=== PATIENT | female | born 1975 | race Caucasian/White ===

== ENCOUNTER 2016-10-24 08:29 | Observation (INO) | payer OTHER ==
[2016-10-22 16:55] VITALS: BMI 44.9
[~2016-10-24 08:29] MED LIST: HEPARIN SODIUM,PORCINE 5,000 UNIT/ML 1 ML VIAL SQ ONE
[2016-10-24] MEDS ORDERED: ONDANSETRON 4 MG/2 ML VIAL IVP ONE (09:29)
[2016-10-24] MEDS ORDERED: DEXAMETHASONE SOD PHOSPHATE 10 MG/ML 1 ML VIAL IV ONE (09:29)
[2016-10-24 10:42] LABS: Glucose,Whole Blood 141 mg/dL (75-99)
[2016-10-24] MEDS ORDERED: LIDOCAINE 1% 20 ML VIAL (10MG/ML) FOR IV START INTRADERMA ONE (10:42)
[2016-10-24] MEDS: LACTATED RINGERS 1,000 ML IV SCH (10:42)
[2016-10-24 10:44] LABS: Basophils % (A) 0 %; CH 28.4; CHCM 32.5; Eosinophils # (A) 0.5 k/uL (0-0.7); Eosinophils % (A) 5 %; HCT 45.1 % (34.0-46.0); HDW 2.99; HGB 14.5 gm/dL (11.4-16.0); Luc # (Auto) 0.17; Luc % (Auto) 2; Lymphocytes # (A) 2.4 k/uL (1.0-4.8); Lymphocytes % (A) 26 %; MCH 28.3 pg (25.0-35.0); MCHC 32.2 g/dL (31.0-37.0); MCV 87.8 fL (80.0-100.0); Mean Platelet Volume 6.9; Monocytes # (A) 0.3 k/uL (0-1.0); Monocytes % (A) 3 %; Neutrophils # (A) 5.8 k/uL (1.3-7.7); Neutrophils % (A) 63 %; RBC 5.13 m/uL (3.80-5.40); RDW 14.6 % (11.5-15.5); WBC 9.1 k/uL (3.8-10.6); WBC (Perox) 9.03
--- NOTE | 2016-10-24 10:50 | P.GSHP ---
History of Present Illness H&P Date: 10/24/16 Chief Complaint: GERD This a 41-year-old female referred from Dr. gross. The patient has had long-standing problems with reflux esophagitis. The patient underwent recent EGD is found have evidence of esophagitis. Patient has been well informed on the procedure of laparoscopic Cristy fundoplication. The patient is aware the risk of the conversion to the open procedure, risk of injury to the stomach, liver and spleen. The patient is also a risk of recurrent GERD and dysphagia symptoms. The patient understands there is a postoperative diet of full liquids for 2 weeks after surgery. - Constitutional Constitutional: Reports as per HPI Past Medical History Past Medical History: Asthma, Heart Failure, COPD, Diabetes Mellitus, GERD/ Reflux, Hypertension, Renal Disease, Seizure Disorder, Sleep Apnea/CPAP/BIPAP Additional Past Medical History / Comment(s): nephrolithiasis, HX pneumonia / vented-2011, peptic ulcers, MEHNAZ-no device, bilateral occipital neuritis, headaches, seizure with last one 1-2-17-sees Shuayto, vertigo, neuropathy;"legs give out at times". had episode of CHF >10 yrs. ago-has had no problems since, hiatal hernia History of Any Multi-Drug Resistant Organisms: None Reported Past Surgical History: Cholecystectomy Additional Past Surgical History / Comment(s): brain surgery 2012 for seizures & headaches, R ovarytube removed, D&C, tilt table test, Picc line insertion since removed, Kidney stone surgically removed & lithotripsy. Past Anesthesia/Blood Transfusion Reactions: No Reported Reaction Past Psychological History: No Psychological Hx Reported Additional Psychological History / Comment(s): Pt resides with her significant other. She states she has not had insurance so has not gone to the physician for about 1 year[address] She does not drive-no license due to medical issues. Smoking Status: Current every day smoker Past Alcohol Use History: Rare Additional Past Alcohol Use History / Comment(s): Pt states she started smoking at the age of 15 yrs. She is down to 4 cigs/day Past Drug Use History: Marijuana Additional Drug Use History / Comment(s): smokes 3 joints per day. - Past Family History Father Family Medical History: AFIB, Diabetes Mellitus, Hypertension Additional Family Medical History / Comment(s): Father has a pacer. Mother Family Medical History: Cancer Additional Family Medical History / Comment(s): Mother of pancreatic cancer at the age of 58yrs. Medications and Allergies Home Medications Medication Instructions Recorded Confirmed Type Gabapentin [Neurontin] 400 mg PO TID 10/02/16 10/24/16 History Phenyleph/Pramoxin/Glycr/W.pet 1 applic RECTAL DIRECTED PRN 10/02/16 History [Preparation H Cream] metFORMIN HCL 1,000 mg PO BID 10/02/16 10/24/16 History Acetaminophen/Caffeine [Excedrin 1 each PO Q6H PRN 10/22/16 10/24/16 History Tension Headache Cplt] Lisinopril 40 mg PO DAILY 10/22/16 10/24/16 History Ranitidine HCl [Zantac] 150 mg PO BID 10/22/16 10/24/16 History Allergies Allergy/AdvReac Type Severity Reaction Status Date / Time hydromorphone HCl Allergy headache Verified 10/24/16 09:52 [From Dilaudid] fexofenadine [From Deirdre] AdvReac Rash/Hives Verified 10/24/16 09:52 BERRIES Allergy Anaphylaxis Uncoded 10/24/16 09:52 Surgical - Exam Vital Signs Temp Pulse Resp BP Pulse Ox 98.1 F 84 18 119/66 97 10/24/16 09:58 10/24/16 09:58 10/24/16 09:58 10/24/16 09:58 10/24/16 09:58 - General well developed, no distress - Eyes PERRL - Neck no masses - Respiratory normal expansion - Cardiovascular Rhythm: regular - Abdomen Abdomen: soft, non tender Results - Labs Abnormal Lab Results - Last 24 Hours (Table) 10/24/16 Range/Units 10:24 POC Glucose (mg/dL) 141 H (75-99) mg/dL Assessment and Plan Plan: GERD. We will perform laparoscopic Cristy fundal plication.
[2016-10-24] MEDS ORDERED: LIDOCAINE 1% INJ 10MG/ML (20 ML MDV) ONE (11:16)
[2016-10-24] MEDS ORDERED: fentaNYL (PF) 50 MCG/ML 2 ML AMP ONE (11:16)
[2016-10-24] MEDS ORDERED: PHENYLEPHRINE-0.9% NACL SYG 1 MG/10 ML SYRINGE ONE (11:16)
[2016-10-24] MEDS ORDERED: ceFAZolin 1,000 MG VIAL ONE (11:16)
[2016-10-24] MEDS ORDERED: NEOSTIGMINE 1 MG/ML 10 ML VIAL ONE (11:16)
[2016-10-24] MEDS ORDERED: GLYCOPYRROLATE 0.2 MG/ML 2 ML VIAL ONE (11:16)
[2016-10-24] MEDS: ceFAZolin 2 GM in SODIUM CHLORIDE 0.9% 100 ML IVPB ONE ×2 (11:16→19:45)
[2016-10-24] MEDS ORDERED: PROPOFOL 10 MG/ML 20 ML VIAL IV ONE (11:16)
[2016-10-24] MEDS ORDERED: MIDAZOLAM 2 MG/2 ML VIAL ONE (11:16)
[2016-10-24] MEDS ORDERED: ALBUTEROL INHALER 60 PUFF/8 GM INHALER INHALATION ONE (11:16)
[2016-10-24] MEDS ORDERED: SUCCINYLCHOLINE CHLORIDE 100 MG/5 ML SYR IV ONE (11:16)
[2016-10-24] MEDS ORDERED: LABETALOL 5 MG/ML VIAL MDV ONE (11:16)
[2016-10-24] MEDS ORDERED: WATER FOR INJECTION, STERILE 10 ML VIAL IV ONE (11:16)
[2016-10-24] MEDS ORDERED: SODIUM CHLORIDE 0.9% 100 ML BAG ONE (11:16)
[2016-10-24] MEDS ORDERED: VECURONIUM 10 MG VIAL IV ONE (11:16)
[2016-10-24] MEDS ORDERED: BUPIVACAIN-EPI 0.25%-1:200,000 30 ML VIAL SQ ONE ×2 (11:56)
[2016-10-24] MEDS ORDERED: ONDANSETRON 4 MG/2 ML VIAL IVP PRN (12:40)
[2016-10-24] MEDS ORDERED: NALOXONE 0.4 MG/ML 1 ML VIAL IV PRN (12:40)
[2016-10-24] MEDS ORDERED: LACTATED RINGERS 1,000 ML IV ONE ×2 (12:40→13:30)
--- NOTE | 2016-10-24 12:40 | P.OP ---
Date of Procedure: 10/24/16 Preoperative Diagnosis: GERD Postoperative Diagnosis: GERD Enlarged fatty liver Procedure(s) Performed: Laparoscopic Cristy fundoplication Anesthesia: DOMINGA Surgeon: Berny Barclay Estimated Blood Loss (ml): 5 Pathology: none sent Condition: stable Disposition: PACU Description of Procedure: The was placed on the operating table in the supine position. The patient received general anesthesia. And was placed in dorsal lithotomy position. The patient was prepped and draped in the usual sterile fashion. The skin incision sites were anesthetized with 1% local Xylocaine. The skin was incised in the left periumbilical area and then using a blade less 5 mm trocar under direct visualization panel cavity was entered. After adequate insufflation the laparoscope was then placed into the peritoneal cavity. Next a 5 mm trochars placed in the right epigastric position. Another 5 millimeter trocar the right lateral position. Another 5 millimeter trocar in the left lateral position a 5 mm trocar is placed in the left epigastric position. And then the initial 5 mm trocar was exchanged for a 10 mm trocar. The left lateral lobe liver was retracted. The hernia was seen. The crural defect was then dissected using the Harmonic scissors device. The patient's liver was massive. The liver retractor trocar was repositioned. A 360 crural dissection was performed the esophagus stomach was reduced back into the peritoneal Cavity. The crural defect was then closed using 2-0 Ethibond suture. Next the fundus of the stomach was mobilized using the [place] scissors device. and then a 58-Greek bougie dilator was placed oropharynx passed into the esophagus and stomach the fundal plication wrap was then performed by grasping the fundus posteriorly and bringing it around the esophagus and stomach fundoplication 180 was then performed using 2-0 Ethibond suture. Care was taken that the fundal location rested over top of the intra-abdominal esophagus. There was no injury seen to the stomach or esophagus. The dilator was then withdrawn. The abdomen was irrigated there is no bleeding seen. The trochars were then withdrawn and then skin incision sites were closed using 3-0 Monocryl suture Steri-Strips are applied. Patient thought procedure well and sent to recovery room in stable condition.
[2016-10-24] MEDS ORDERED: MORPHINE SULFATE 10 MG/ML SYRINGE IVP PRN (12:44)
[2016-10-24] MEDS ORDERED: MIDAZOLAM 2 MG/2 ML VIAL IVP ONE (13:30)
[2016-10-24] MEDS: MEPERIDINE 50 MG/ML SYRINGE IVP ONE ×2 (13:30→13:35)
[2016-10-24] MEDS: KETOROLAC 30 MG/ML 1 ML VIAL IVP SCH ×2 (14:00→19:53)
[2016-10-25] MEDS: LACTATED RINGERS 1,000 ML IV SCH (00:20)
[2016-10-25] MEDS: HYDROcodone/APAP 5-325MG 1 EACH TAB PO PRN ×2 (01:33→09:18)
[2016-10-25] MEDS: KETOROLAC 30 MG/ML 1 ML VIAL IVP SCH ×3 (01:38→13:31)
--- NOTE | 2016-10-25 08:47 | FL ---
EXAMINATION TYPE: FL UGI w esophagus DATE OF EXAM: 10/25/2016 8:41 AM LIMITED ESOPHAGRAM: CLINICAL HISTORY: Hiatal hernia and epigastric pain with vomiting or reflux-like symptoms status pos t Lucian fundoplication surgery yesterday TECHNIQUE: Limited esophagram is performed utilizing 50 oz of Omnipaque 350. A total of 0.57 minutes of fluoroscopic time was utilized during procedure. FINDINGS: The patient swallowed contrast without difficulty or delay. Esophageal peristalsis and mo tility are within normal limits. There is good flow of flow of contrast along the diaphragmatic hiatu s into the stomach, there is no evidence of contrast extravasation to suggest leak. No persistent hia prudence hernia is seen. Patient remains asymptomatic. Cholecystectomy clips are noted. IMPRESSION: No evidence of leak or significant obstruction status post Lucian fundoplication surgery yesterday.
[2016-10-25] MEDS ORDERED: METOCLOPRAMIDE 5 MG/ML 2 ML VIAL IVP STA (12:26)
[2016-10-25 13:02] VITALS: BP 112/82; PULSE 75; RESP 16; TEMP 97.4
--- NOTE | 2016-10-25 13:55 | P.DS ---
Providers Date of admission: 10/25/16 01:34 Expected date of discharge: 10/25/16 Attending physician: Berny Barclay Consults: 10/24/16 12:40 Consult Physician Routine Consulting Provider: Brennan Jeong Reason/Comments: Medical management Do you want consulting provider notified?: Yes Primary care physician: [facility] Course: Patient is a 41-year-old female, referred from Dr. Harvey, who underwent laparoscopic Cristy fundoplication for long-standing problems with reflux esophagitis. Patient tolerated the procedure well. Upper GI/barium swallow x-ray post procedure with no evidence of leak or aspiration. Patient had an uneventful postoperative course and was felt stable for discharge to home. Patient will follow-up with Dr. Estevez in 2 weeks as an outpatient and Dr. Harvey in one week as an outpatient. Discharge diagnoses: 1. GERD status post laparoscopic Cristy fundoplication. 2. Enlarged fatty liver. The above impression and plan have been discussed and directed by Dr. Barclay. Lisa SANCHEZ acting as scribe for Dr. Barclay. Pertinent Studies: Upper GI/barium swallow x-ray Procedures: Laparoscopic Cristy fundoplication Patient Condition at Discharge: Good Plan - Discharge Summary New Discharge Prescriptions: HYDROcodone/APAP 5-325MG [[place] 5-325] 1 tab PO Q4HR PRN #20 tab PRN Reason: Pain Discharge Medication List Gabapentin [Neurontin] 400 mg PO TID 10/02/16 [History] Phenyleph/Pramoxin/Glycr/W.pet [Preparation H Cream] 1 applic RECTAL DIRECTED PRN 10/02/16 [History] metFORMIN HCL 1,000 mg PO BID 10/02/16 [History] Acetaminophen/Caffeine [Excedrin Tension Headache Cplt] 1 each PO Q6H PRN [History] Lisinopril 40 mg PO DAILY 10/22/16 [History] HYDROcodone/APAP 5-325MG [[place] 5-325] 1 tab PO Q4HR PRN #20 tab 10/24/16 [Rx] Follow up Appointment(s)/Referral(s): James Harvey DO [Primary Care Provider] - 1 Week Berny Barclay MD [STAFF PHYSICIAN] - 2 Weeks Patient Instructions/Handouts: *Surgery [facility] - ([facility]) Lap Cristy Fundiplication Post-Op Instructions Activity/Diet/Wound Care/Special Instructions: No heavy lifting, pushing, or pulling items greater than 10 pounds. Full liquid diet for 2 weeks. No caffeinated beverages or straws. Shower daily, no soaking in bath tubs, pools, or hot tubs. No driving while taking pain medication. Notify surgeon with any signs or symptoms of infection, increased pain, or not tolerating diet. Discharge Disposition: HOME SELF-CARE
--- NOTE | 2016-10-25 15:26 | P.CONS ---
History of Present Illness - Reason for Consult Consult date: 10/25/16 Medical management - History of Present Illness This is a 41-year-old female. Her primary care physician is Dr. Martínez. She has a past medical history for COPD, diabetes mellitus type 2, diabetic neuropathy, hypertension, obstructive sleep apnea without device, kidney stones, occipital neuritis and chronic headaches as well as seizures. Patient has had ongoing problems with gastroesophageal reflux disease and has been admitted under the care of Dr. Archibald is status post recent fundoplication. Patient is complaining of left upper abdominal discomfort. She underwent upper GI that was negative. Patient is anticipated to be discharged home today. She states she is burping but has not passed any flatus. She is tolerating clear liquid diet without any nausea or vomiting. Review of Systems All systems: negative Constitutional: Denies chills, Denies fever Eyes: denies blurred vision, denies pain Ears, nose, mouth and throat: Denies headache, Denies sore throat Cardiovascular: Denies chest pain, Denies shortness of breath Respiratory: Denies cough Gastrointestinal: Reports abdominal pain, Denies diarrhea, Denies nausea, Denies vomiting Genitourinary: Denies dysuria, Denies hematuria Musculoskeletal: Denies myalgias Integumentary: Denies pruritus, Denies rash Neurological: Denies numbness, Denies weakness Psychiatric: Denies anxiety, Denies depression Endocrine: Denies fatigue, Denies weight change Past Medical History Past Medical History: Asthma, Heart Failure, COPD, Diabetes Mellitus, GERD/ Reflux, Hypertension, Renal Disease, Seizure Disorder, Sleep Apnea/CPAP/BIPAP Additional Past Medical History / Comment(s): nephrolithiasis, HX pneumonia / vented-2011, peptic ulcers, MEHNAZ-no device, bilateral occipital neuritis, headaches, seizure with last one 1-2-17-sees Shuayto, vertigo, neuropathy;"legs give out at times". had episode of CHF >10 yrs. ago-has had no problems since, hiatal hernia History of Any Multi-Drug Resistant Organisms: None Reported Past Surgical History: Cholecystectomy Additional Past Surgical History / Comment(s): brain surgery 2013 for seizures & headaches, R ovarytube removed, D&C, tilt table test, Picc line insertion since removed, Kidney stone surgically removed & lithotripsy. Past Anesthesia/Blood Transfusion Reactions: No Reported Reaction Past Psychological History: No Psychological Hx Reported Additional Psychological History / Comment(s): Pt resides with her significant other. She states she has not had insurance so has not gone to the physician for about 1 year[address] She does not drive-no license due to medical issues. Smoking Status: Current every day smoker Past Alcohol Use History: Rare Additional Past Alcohol Use History / Comment(s): Pt states she started smoking at the age of 15 yrs. she has been smoking 1 pack per day and recently cut down to 4 cigs/day Past Drug Use History: Marijuana Additional Drug Use History / Comment(s): smokes 3 joints per day to help relax and decrease pain from headache , rt shoulder pain - Past Family History Father Family Medical History: AFIB, Diabetes Mellitus, Hypertension Additional Family Medical History / Comment(s): Father has a pacer. Mother Family Medical History: Cancer Additional Family Medical History / Comment(s): Mother of pancreatic cancer at the age of 58yrs. Medications and Allergies Home Medications Medication Instructions Recorded Confirmed Type Gabapentin [Neurontin] 400 mg PO TID 10/02/16 10/24/16 History Phenyleph/Pramoxin/Glycr/W.pet 1 applic TOPICAL QID PRN 10/02/16 10/25/16 History [Preparation H Cream] metFORMIN HCL 1,000 mg PO BID 10/02/16 10/24/16 History Acetaminophen/Caffeine [Excedrin 1 tab PO Q6H PRN 10/22/16 10/25/16 History Tension Headache Cplt] Lisinopril 40 mg PO DAILY 10/22/16 10/24/16 History Allergies Allergy/AdvReac Type Severity Reaction Status Date / Time hydromorphone HCl Allergy headache Verified 10/24/16 17:11 [From Dilaudid] fexofenadine [From Deirdre] AdvReac Rash/Hives Verified 10/24/16 17:11 BERRIES Allergy Anaphylaxis Uncoded 10/24/16 17:11 Physical Exam Vitals: Vital Signs Temp Pulse Pulse Pulse Pulse Resp BP 10/25/16 13:01 97.4 F L 75 16 112/82 10/25/16 08:55 97.5 F L 79 20 125/87 10/24/16 23:00 97.4 F L 79 18 122/78 10/24/16 18:50 97 20 124/74 10/24/16 17:50 88 16 111/81 10/24/16 16:50 82 16 115/79 10/24/16 16:20 77 16 114/76 10/24/16 15:50 82 16 113/73 10/24/16 15:35 67 100/53 10/24/16 15:20 79 101/66 10/24/16 15:05 98.5 F 70 16 115/68 10/24/16 14:15 77 18 91/54 10/24/16 14:00 68 18 93/46 10/24/16 13:45 78 18 123/56 10/24/16 13:30 88 24 115/55 10/24/16 13:15 98 F 102 H 24 115/53 Pulse Ox 10/25/16 13:01 95 10/25/16 08:55 98 10/24/16 23:00 96 10/24/16 18:50 98 10/24/16 17:50 98 10/24/16 16:50 98 10/24/16 16:20 99 10/24/16 15:50 98 10/24/16 15:35 96 10/24/16 15:20 97 10/24/16 15:05 92 L 10/24/16 14:15 98 10/24/16 14:00 98 10/24/16 13:45 99 10/24/16 13:30 96 10/24/16 13:15 96 Intake and Output 10/24/16 10/25/16 10/25/16 22:59 06:59 14:59 Intake Total 400 120 Output Total 400 Balance 0 120 Intake: Oral 400 120 Output: Urine 400 Other: Voiding Method Toilet # Voids 1 1 Weight 111.584 kg Patient Weight 10/26/16 06:59 Weight 111.584 kg Gen: This is a morbidly obese female. She is sitting up in bed and appears to be in no acute distress. HEENT: Head is atraumatic, normocephalic. Pupils equal, round. Sclerae is anicteric. NECK: Supple. No JVD. No lymphadenopathy. No thyromegaly. LUNGS: Clear to auscultation. No wheezes or rhonchi. No intercostal retractions. HEART: Regular rate and rhythm. No murmur. ABDOMEN: Soft. Bowel sounds are present. No masses. Mild left upper quadrant tenderness. EXTREMITIES: No pedal edema. No calf tenderness. NEUROLOGICAL: Patient is awake, alert and oriented x3. Cranial nerves 2 through 12 are grossly intact. Results CBC & Chem 7: 10/24/16 10:35 Assessment and Plan Plan: 1. Gastroesophageal reflux disease status post Cristy fundoplication. Upper GI is normal. Patient is tolerating clear liquid diet. Plan increase activity and patient is to be discharged home later today. 2. Diabetes mellitus type 2. Patient states that she has not been taking her metformin for 3 weeks due to diarrhea and does not think she is truly a diabetic. 3. Diabetic neuropathy. Continue Neurontin. 4. Hypertension. Continue lisinopril. 5. Chronic headaches and seizure disorder under the care of jeff Smith. Impression and plan of care have been directed as dictated by the signing physician. Radha Garvey nurse practitioner acting as scribe for signing physician. Time with Patient: Greater than 30
== END 2016-10-25 16:07 | disposition home or self-care (01) ==
LOC: OR 08:29 → 6PED 12:59 → OR 10-25 13:17
PROVIDERS: ADMIT Surgery; ATTEND Surgery
DX: K21.0 Gastro-esophageal reflux disease with esophagitis (principal); K76.0 Fatty (change of) liver, not elsewhere classified; E11.40 Type 2 diabetes mellitus with diabetic neuropathy, unspecified; F17.210 Nicotine dependence, cigarettes, uncomplicated; G40.909 Epilepsy, unspecified, not intractable, without status epilepticus; I10 Essential (primary) hypertension; I50.9 Heart failure, unspecified; J44.9 Chronic obstructive pulmonary disease, unspecified; J45.909 Unspecified asthma, uncomplicated; Z80.0 Family history of malignant neoplasm of digestive organs; Z82.49 Family history of ischemic heart disease and other diseases of the circulatory system; Z83.3 Family history of diabetes mellitus; Z87.01 Personal history of pneumonia (recurrent); Z87.11 Personal history of peptic ulcer disease; Z87.442 Personal history of urinary calculi; Z88.5 Allergy status to narcotic agent; Z88.8 Allergy status to other drugs, medicaments and biological substances; Z79.84 Long term (current) use of oral hypoglycemic drugs; Z79.899 Other long term (current) drug therapy; G44.229 Chronic tension-type headache, not intractable
CPT/HCPCS: 43280; 81025; 85025; 74240; G0378; J2250; J1644; J1100; J2710; J2765; Q9967; J2175; J2405 ×2; J0690; J2001; J3010; J1885 ×2; J2370; J0330; J2704; 96374; 96375; 96376

== ENCOUNTER → 2016-12-30 | Outpatient (CLI) | payer OTHER ==
--- NOTE | 2016-12-30 09:35 | MR ---
EXAMINATION TYPE: MR brain wo con DATE OF EXAM: 12/30/2016 9:01 AM COMPARISON: 11/27/2010 HISTORY: Headaches CONTRAST: None TECHNIQUE: Multiplanar, multiecho imaging on a 3.0 [place] magnet is performed through the brain. Stud y is performed within 24 hours of arrival to the hospital. The craniovertebral junction is normal. The pituitary is normal. Diffusion-weighted imaging is performed. No abnormal hyperintensity is present to suggest an acute i ntracranial infarct or acute ischemic change. Signal within the brain appears normal. Ventricles and sulci are appropriate for the patient age. IMPRESSIONS: 1. Normal MRI brain, stable from 2010.
--- NOTE | 2016-12-30 09:35 | MR ---
EXAMINATION TYPE: MR angio head wo con DATE OF EXAM: 12/30/2016 9:01 AM COMPARISON: NONE HISTORY: Headaches TECHNIQUE: Time of flight images focusing on the [place] were performed without contrast. FINDINGS: Vertebral arteries are codominant. The basilar artery is normal. Posterior cerebral vascula ture appears unremarkable. Middle cerebral artery branches appear normal. A1 and M1 segments are normal. There are patent bilate ral posterior communicating arteries. The ophthalmic arteries appear unremarkable. The anterior commu nicating artery is not identified. No obstruction or aneurysm is identified. IMPRESSION: Normal MRA [place]
== END | disposition home or self-care (01) ==
LOC: RADMRIMAIN 08:15
PROVIDERS: ATTEND Nurse Practitioner Acute Care
DX: R51 Headache (principal)
CPT/HCPCS: 70544; 70551

== ENCOUNTER → 2017-06-17 | Outpatient (CLI) | payer OTHER ==
--- NOTE | 2017-06-17 12:25 | US ---
EXAMINATION TYPE: US pelvic complete DATE OF EXAM: 06/17/2017 COMPARISON: Previous study dated 07/02/2011. CLINICAL HISTORY: R10.2 Female Pelvic Pain, N94.6 Dysmenorrhea, R10.. TECHNIQUE: Transabdominal (TA) Date of LMP: 05/29/17 EXAM MEASUREMENTS: Uterus: 10.9 x 4.6 x 5.1 cm Endometrial Stripe: 0.5 cm Right Ovary: 3.3 x 1.6 x 2.1 cm Left Ovary: 3.3 x 2.3 x 1.9 cm Patient of large body habitus. 1. Uterus: Anteverted wnl 2. Endometrium: wnl 3. Right Ovary: wnl 4. Left Ovary: wnl 5. Bilateral Adnexa: wnl 6. Posterior cul-de-sac: wnl IMPRESSION: NORMAL PELVIC ULTRASOUND.
== END | disposition home or self-care (01) ==
LOC: RADUSWWP 09:40
PROVIDERS: ATTEND Family Medicine
DX: R10.2 Pelvic and perineal pain (principal); R31.9 Hematuria, unspecified; N94.6 Dysmenorrhea, unspecified; Z88.5 Allergy status to narcotic agent
CPT/HCPCS: 76856

== ENCOUNTER → 2018-04-24 | Day surgery (SDC) | payer OTHER ==
[2018-04-21 14:41] VITALS: BMI 39.9
[~2018-04-24] MED LIST changes: -HEPARIN SODIUM,PORCINE 5,000 UNIT/ML 1 ML VIAL SQ ONE; +LACTATED RINGERS 1,000 ML IV SCH; +LIDOCAINE 1% 20 ML VIAL (10MG/ML) FOR IV START INTRADERMA PRN; +PROPOFOL 10 MG/ML 20 ML VIAL IV ONE; +fentaNYL (PF) 50 MCG/ML 2 ML AMP ONE
[2018-04-24 07:03] VITALS: RESP 16; TEMP 98.2
--- NOTE | 2018-04-24 07:52 | P.GSHP ---
History of Present Illness H&P Date: 04/24/18 Chief Complaint: Diverticulitis This is a 42-year-old female who presents today for colonoscopy. She's had issues with diverticulitis the past. Past Medical History Past Medical History: Asthma, Heart Failure, Diabetes Mellitus, GERD/Reflux, Hypertension, Renal Disease, Seizure Disorder, Sleep Apnea/CPAP/BIPAP Additional Past Medical History / Comment(s): nephrolithiasis, HX pneumonia / vented-2011, peptic ulcers, MEHNAZ-no device, bilateral occipital neuritis, headaches, states "mild convulsions daily., vertigo, neuropathy;"legs give out at times". had episode of CHF >10 yrs. ago-has had no problems since, hiatal hernia surgery (10/2016). DENIES COPD, DENIES KIDNEY DISEASE AT THIS TIME., states hospitalized with diverticulitis 3 weeks ago at [facility]. History of Any Multi-Drug Resistant Organisms: None Reported Past Surgical History: Cholecystectomy Additional Past Surgical History / Comment(s): brain surgery 2012 for seizures & headaches, Left ovary/tube removed, D&C, tilt table test, Picc line insertion since removed, Kidney stone surgically removed & lithotripsy., Laproscopic Cristy Fundoplasty. Past Anesthesia/Blood Transfusion Reactions: No Reported Reaction, Motion Sickness Past Psychological History: Anxiety, Depression Additional Psychological History / Comment(s): . Smoking Status: Heavy tobacco smoker Past Alcohol Use History: None Reported Additional Past Alcohol Use History / Comment(s): SMOKES 2 PPD., SMOKING SINCE 15 YRS OLD. Past Drug Use History: Marijuana Additional Drug Use History / Comment(s): MARIJUANA DAILY. - Past Family History Father Family Medical History: AFIB, Diabetes Mellitus, Hypertension Additional Family Medical History / Comment(s): Father has a pacer. Mother Family Medical History: Cancer Additional Family Medical History / Comment(s): Mother of pancreatic cancer at the age of 58yrs. Medications and Allergies Home Medications Medication Instructions Recorded Confirmed Type Gabapentin [Neurontin] 400 mg PO TID 10/02/16 04/24/18 History Lisinopril 40 mg PO DAILY 10/22/16 04/24/18 History Qrysxrm-Lvsy-Jrhr [id number] 2 each PO Q6HR PRN 04/21/18 04/24/18 History [Excedrin] Cholestyramine (with Sugar) 1 dose PO DAILY 04/21/18 04/24/18 History [Cholestyramine Powder] Verapamil HCl [Verapamil ER] 120 mg PO BID 04/21/18 04/24/18 History Allergies Allergy/AdvReac Type Severity Reaction Status Date / Time pregabalin [From Lyrica] Allergy Unknown Unknown Verified 04/21/18 13:42 hydromorphone HCl Allergy headache Verified 04/21/18 13:42 [From Dilaudid] BERRIES Allergy Anaphylaxis Uncoded 04/21/18 13:42 Surgical - Exam Vital Signs Temp Pulse Resp BP Pulse Ox 98.2 F 93 16 153/101 96 04/24/18 06:58 04/24/18 06:58 04/24/18 06:58 04/24/18 06:58 04/24/18 06:58 - General well developed, well nourished, no distress - Eyes PERRL - ENT normal pinna - Neck no masses - Respiratory normal expansion - Cardiovascular Rhythm: regular - Abdomen Abdomen: soft, non tender Assessment and Plan Assessment: History of diverticulitis. We'll perform colonoscopy.
[2018-04-24 08:16] VITALS: BP 144/82; PULSE 82
--- NOTE | 2018-04-24 08:18 | P.OP ---
Date of Procedure: 04/24/18 Preoperative Diagnosis: Diverticulitis Postoperative Diagnosis: Diverticulosis Sigmoid colon inflammation pathology pending Procedure(s) Performed: Colonoscopy Anesthesia: MAC Surgeon: Berny Barclay Pathology: other (Sigmoid colon biopsy) Condition: stable Disposition: PACU Description of Procedure: The patient's placed on the endoscopy table in the lateral position. She received IV sedation. Digital rectal exam was performed which revealed no abnormalities. The flexible scope was then placed patient anus passed throughout the entire colon. The ileocecal valve was visualized. The cecum, ascending and transverse colon appeared normal. In the descending; was moderate diverticular changes. In the sigmoid colon there is an area of inflammation seen. This was biopsied. Scope was then brought back the rectum and this appeared normal. Scope was withdrawn for patient.
== END | disposition home or self-care (01) ==
LOC: ORWHC2ENDO 06:31
PROVIDERS: ATTEND Surgery
DX: D12.5 Benign neoplasm of sigmoid colon (principal); K57.30 Diverticulosis of large intestine without perforation or abscess without bleeding; J45.909 Unspecified asthma, uncomplicated; I11.0 Hypertensive heart disease with heart failure; I50.9 Heart failure, unspecified; E11.9 Type 2 diabetes mellitus without complications; K21.9 Gastro-esophageal reflux disease without esophagitis; G40.909 Epilepsy, unspecified, not intractable, without status epilepticus; G47.33 Obstructive sleep apnea (adult) (pediatric); F41.9 Anxiety disorder, unspecified; F32.9 Major depressive disorder, single episode, unspecified; F17.210 Nicotine dependence, cigarettes, uncomplicated; Z79.899 Other long term (current) drug therapy; Z88.5 Allergy status to narcotic agent; Z88.8 Allergy status to other drugs, medicaments and biological substances; Z91.018 Allergy to other foods; Z87.442 Personal history of urinary calculi
CPT/HCPCS: 81025; 88305; 45380; J3010; J2704

== ENCOUNTER → 2018-06-05 | Outpatient (CLI) | payer OTHER ==
--- NOTE | 2018-06-05 12:21 | CT ---
EXAMINATION TYPE: CT abdomen pelvis w con DATE OF EXAM: 06/05/2018 COMPARISON: 04/27/2013 HISTORY: Diverticuitis CT DLP: 1696.00 mGycm Automated exposure control for dose reduction was used. CONTRAST: CT scan of the abdomen pelvis is performed with IV Contrast, patient injected with 100 ml mL of Isovu e 300. FINDINGS- LUNG BASES-subpleural nodularity is seen within the right upper lobe as well as additional intraparen chymal nodule which measure less than 5 mm. Finding is retrospectively stable from 2013 and therefore benign. . LIVER/GB-post cystectomy changes noted. PANCREAS- No gross abnormality is seen. SPLEEN- No gross abnormality is seen. ADRENALS- No gross abnormality is seen. KIDNEYS/BLADDER-3 mm left renal calculus with minimal evidence of hydronephrosis. Left kidney is some what diminutive relative to the right. BOWEL-gas pattern is nonspecific there are changes of diverticulosis. No CT evidence of diverticuliti s. Assessment for mass or mucosal lesion limited by incomplete distention. This would require direct visualization as clinically warranted. LYMPH NODES- No greater than 1cm abdominal or pelvic lymph nodes areappreciated. OSSEOUS STRUCTURES-hypertrophic changes of the spine noted. OTHER- aorta of normal caliber with athe rosclerotic changes. IMPRESSION- 1. Diverticulosis with no CT evidence of diverticulitis. 2. There is a 3 mm left renal calculus with minimal hydronephrosis. This is markedly reduced relative to the prior exam of 2012. Atrophic changes of the left kidney noted.
== END | disposition home or self-care (01) ==
LOC: RADCTMAIN 09:45
PROVIDERS: ATTEND Surgery
DX: K57.30 Diverticulosis of large intestine without perforation or abscess without bleeding (principal); N20.0 Calculus of kidney; N26.1 Atrophy of kidney (terminal)
CPT/HCPCS: 74177; Q9967

== ENCOUNTER → 2018-12-15 | Outpatient (CLI) | payer OTHER ==
[2018-12-15 09:01] VITALS: BP 171/98; PULSE 103; RESP 20; TEMP 97.9; BMI 45.5
--- NOTE | 2018-12-15 10:08 | P.HPOB ---
History of Present Illness H&P Date: 12/15/18 Chief Complaint: The patient is here for her routine gynecologic exam. This is a 43-year-old with an LMP of 12/10/2018. The patient is here to establish with this office. It has been about 10 years since her last pelvic exam. Her last mammogram was about 5 years ago. She has used withdrawl for control for many years. She states her menstrual periods were regular every month until about 4 months ago. They now are about every 18 days. They are heavier and more painful than in the past. She states she has to change her protection up to every one to 2 hours on the heavy days. Her menstrual periods lasting about 4 days each. Review of Systems The patient states she lost about 77 pounds over 2 years with exercise, then during this winter has gained about 35 pounds back since she has been unable to ride her bike outside. She denies respiratory, cardiac, or G.I. problems. Past Medical History Past Medical History: Asthma, Heart Failure, GERD/Reflux, Hypertension, Renal Disease (Renal stones), Seizure Disorder, Sleep Apnea/CPAP/BIPAP Additional Past Medical History / Comment(s): nephrolithiasis, HX pneumonia / vented-2011, peptic ulcers, Sleep apnea-no device, bilateral occipital neuritis , headaches, vertigo, neuropathy;"legs give out at times". had episode of CHF > 10 yrs. ago-has had no problems since. 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 History of Any Multi-Drug Resistant Organisms: None Reported Past Surgical History: Cholecystectomy, Hernia Repair (Hiatal hernia) Additional Past Surgical History / Comment(s): brain surgery 2013 for seizures & headaches, Right ovary/tube removed 2009, D&C, Picc line insertion since removed, Kidney stone surgically removed & lithotripsy., Laproscopic Cristy Fundoplasty. Colonoscopy 2018(2nd). Past Anesthesia/Blood Transfusion Reactions: No Reported Reaction, Motion Sickness Past Psychological History: Anxiety, Depression Additional Psychological History / Comment(s): . Smoking Status: Heavy tobacco smoker (1 pack per day) Past Alcohol Use History: None Reported Additional Past Alcohol Use History / Comment(s): SMOKES 1 PPD., SMOKING SINCE 15 YRS OLD. Past Drug Use History: Marijuana Additional Drug Use History / Comment(s): MARIJUANA DAILY. Additional History: She is single and has been with her boyfriend since 1998 and lives with him. She does not work outside the home. - Past Family History Father Family Medical History: AFIB, Diabetes Mellitus, Hypertension Additional Family Medical History / Comment(s): Father has a pacer. Mother Family Medical History: Cancer Additional Family Medical History / Comment(s): Mother of pancreatic cancer at the age of 58yrs. Maternal cousin had pancreatic cancer. Maternal uncle had lung cancer. Sister(s) Family Medical History: AICD/Pacemaker Medications and Allergies Home Medications Medication Instructions Recorded Confirmed Type Gabapentin [Neurontin] 400 mg PO TID 10/02/16 12/15/18 History Lisinopril 40 mg PO DAILY 10/22/16 12/15/18 History Dsdepnj-Xanq-Yqtg [id number] 2 each PO Q6HR PRN 04/21/18 04/24/18 History [Excedrin] Verapamil HCl [Verapamil ER] 120 mg PO BID 04/21/18 12/15/18 History Amoxic-Pot Clav 875-125Mg 1 tab PO BID 12/15/18 12/15/18 History [Augmentin 875-125] Simvastatin 10 mg PO DAILY 12/15/18 12/15/18 History Allergies Allergy/AdvReac Type Severity Reaction Status Date / Time pregabalin [From Lyrica] Allergy Unknown Unknown Verified 12/15/18 08:53 hydromorphone HCl Allergy headache Verified 12/15/18 08:53 [From Dilaudid] BERRIES Allergy Anaphylaxis Uncoded 12/15/18 08:53 Exam Vital Signs Temp Pulse Resp BP Pulse Ox 12/15/18 08:56 97.9 F 103 H 20 171/98 96 Intake and Output 12/14/18 12/15/18 12/15/18 22:59 06:59 14:59 Other: Weight 109.316 kg Repeat blood pressure will with large cuff 162/88. Height 5'1", weight 241 pounds, BMI 45.5. This is a well-developed well-nourished obese white female who is alert and oriented times 3 in no acute distress. HEENT: Within normal limits. NECK: Supple without mass or thyromegaly. CHEST AND LUNGS: Clear to auscultation. HEART: Regular rate and rhythm. BREASTS: Are without mass or discharge. The right nipple has central inversion. The patient states that it's been this way throughout her entire life. The left nipple is not inverted. AXILLARY EXAM: Negative for adenopathy. BACK: Negative for CVA tenderness. ABDOMEN: Soft, obese, nontender, without palpable masses. PELVIC EXAM: Normal external genitalia. Cervix and vagina appear normal. There is no unusual discharge. There is no evidence of prolapse. The uterus is midposition, nongravid size and nontender. There are no palpable adnexal masses or tenderness. Bimanual examination is somewhat limited secondary to her size. RECTAL EXAM: rectovaginal exam is negative for mass or tenderness and is negative for occult blood. EXTREMITIES: Nontender. IMPRESSION: 1. 43-year-old female with menometrorrhagia and dysmenorrhea during the past 4 months. 2. Unremarkable gynecologic exam. 3. Obesity. 4. Multiple medical problems. 5. History of right salpingo-oophorectomy for benign reasons the past. PLAN: 1. Pap smear was performed. 2. Self breast awareness was discussed with the patient. 3. The patient is due for a screening mammogram. The order slip was given to the patient for this. She will make an appointment for this. 4. The patient will keep her menstrual calendar. 5. The patient will be referred to Dr. Bauer, the net c developer who did her unilateral salpingo-oophorectomy. She will be referred for her worsening menstrual periods. I do not think she is a candidate for hormonal treatment such as oral contraception because of her multiple medical problems. We have discussed possible options such as endometrial ablation and hysterectomy. She will further discuss this with Dr. Bauer. 6. She will return in one year and PRN.
== END ==
LOC: WWCWWP 08:43
PROVIDERS: ATTEND Obstetrics & Gynecology
DX: Z53.9 Procedure and treatment not carried out, unspecified reason (principal)

== ENCOUNTER → 2019-02-16 | Outpatient (CLI) | payer OTHER ==
--- NOTE | 2019-02-16 12:42 | US ---
EXAMINATION TYPE: US transvaginal DATE OF EXAM: 02/16/2019 COMPARISON: US, CT CLINICAL HISTORY: N93.8 Dysfunctional Uterine Bleeding. Patient stated has had DUB every 2 weeks x 6 months; RT oophorectomy TECHNIQUE: Transvaginal (TV). Transvaginal sonographic images were medically necessary to better as sess the following anatomy: endometrium as patient's bladder was not full. Date of LMP: 02/04/2019 EXAM MEASUREMENTS: Uterus: 10.7 x 5.8 x 4.5 cm Endometrial Stripe: 10 cm Right Ovary: surgically removed Left Ovary: 4.2 x 3.3 x 3.5 cm 1. Uterus: Anteverted; multiple Nabothian Cysts in CX with largest = 1.3 x 1.3 x 1.2cm. 2. Endometrium: Within normal limits 3. Right Ovary: surgically absent 4. Left Ovary: enlarged ovary; large simple cyst = 2.5 x 2.6 x 2.3cm Spectral, color and waveform Doppler imaging shows good arterial and venous flow within the left ov vivek; there is no evidence for ovarian torsion. 5. Bilateral Adnexa: wnl 6. Posterior cul-de-sac: wnl IMPRESSION: 1. Multiple cysts and follicles of the left ovary the largest measuring up to 2.6 cm although these a ppear simple with no internal complexity. 2. Endometrial thickness is within normal limits for a premenopausal female.
== END | disposition home or self-care (01) ==
LOC: RADUSWWP 10:17
PROVIDERS: ATTEND Obstetrics & Gynecology
DX: N83.202 Unspecified ovarian cyst, left side (principal)
CPT/HCPCS: 76830

== ENCOUNTER 2019-05-07 12:29 | Inpatient (IN) | payer OTHER ==
[2019-05-07] MEDS ORDERED: IPRATROPIUM-ALBUTEROL 3 ML NEB INHALATION STA (13:02)
--- NOTE | 2019-05-07 13:08 | ED ---
General Adult HPI - General Chief complaint: Shortness of Breath Stated complaint: SOB Time Seen by Provider: 05/07/19 12:38 Source: patient, RN notes reviewed Mode of arrival: ambulatory Limitations: no limitations - History of Present Illness Initial comments: Patient is a pleasant 43-year-old female presenting to the emergency Department with shortness of breath. Patient states onset of symptoms was a couple of days ago. Symptoms worsened today and have associated discomfort in her chest described as pressure. No radiation. Patient complains of swelling diffusely, mostly in her legs. Patient does have history of similar symptoms previously associated with congestive heart failure. Patient does admit to feeling anxious. Patient is tearful during evaluation. - Related Data Home Medications Medication Instructions Recorded Confirmed Gabapentin [Neurontin] 400 mg PO TID 10/02/16 05/07/19 Acetaminophen [Tylenol Extra 2,000 mg PO TID PRN 05/07/19 05/07/19 Strength] Albuterol Inhaler [Ventolin Hfa 2 puff INHALATION RT-Q6H PRN 05/07/19 05/07/19 Inhaler] cloNIDine HCL 0.3 mg PO HS 05/07/19 05/07/19 glipiZIDE [Glucotrol] 5 mg PO HS 05/07/19 05/07/19 Allergies Allergy/AdvReac Type Severity Reaction Status Date / Time pregabalin [From Lyrica] Allergy Unknown Unknown Verified 05/07/19 14:33 hydromorphone HCl Allergy headache Verified 05/07/19 14:33 [From Dilaudid] BERRIES Allergy Anaphylaxis Uncoded 12/15/18 08:53 Review of Systems ROS Statement: Those systems with pertinent positive or pertinent negative responses have been documented in the HPI. ROS Other: All systems not noted in ROS Statement are negative. Constitutional: Denies: fever Eyes: Denies: eye pain ENT: Denies: ear pain Respiratory: Reports: dyspnea Cardiovascular: Reports: chest pain Gastrointestinal: Denies: nausea, vomiting Musculoskeletal: Denies: back pain Skin: Denies: rash Neurological: Denies: weakness Psychiatric: Reports: anxiety Past Medical History Past Medical History: Asthma, Heart Failure, GERD/Reflux, Hypertension, Renal Disease, Seizure Disorder, Sleep Apnea/CPAP/BIPAP Additional Past Medical History / Comment(s): nephrolithiasis, HX pneumonia /vented-2012, peptic ulcers, Sleep apnea-no device, bilateral occipital neuritis, headaches, vertigo, neuropathy;"legs give out at times". had episode of CHF >10 yrs. ago-has had no problems since. PAST DIRECTOR WORKFORCE MANAGEMENT HISTORY: She has no history of STDs. divertiulitis History of Any Multi-Drug Resistant Organisms: None Reported Past Surgical History: Cholecystectomy, Hernia Repair Additional Past Surgical History / Comment(s): brain surgery 2013 for seizures & headaches, Right ovary/tube removed 2009, D&C, Picc line insertion since removed, Kidney stone surgically removed & lithotripsy., Laproscopic Cristy Fundoplasty. Colonoscopy 2018(2nd). Past Anesthesia/Blood Transfusion Reactions: No Reported Reaction, Motion Sickness Past Psychological History: Anxiety, Depression Smoking Status: Heavy tobacco smoker Past Alcohol Use History: None Reported Past Drug Use History: Marijuana - Past Family History Father Family Medical History: AFIB, Diabetes Mellitus, Hypertension Additional Family Medical History / Comment(s): Father has a pacer. Mother Family Medical History: Cancer Additional Family Medical History / Comment(s): Mother of pancreatic cancer at the age of 58yrs. Maternal cousin had pancreatic cancer. Maternal uncle had lung cancer. Sister(s) Family Medical History: AICD/Pacemaker General Exam Limitations: no limitations General appearance: alert, anxious Head exam: Present: atraumatic Eye exam: Present: normal appearance, PERRL ENT exam: Present: normal oropharynx Neck exam: Present: normal inspection Respiratory exam: Present: rales (Mild bilateral bases) Cardiovascular Exam: Present: tachycardia Expanded Peripheral pulses: 2+: Radial (R), Radial (L), Dorsalis Pedis (R), Dorsalis Pedis (L) GI/Abdominal exam: Present: soft. Absent: tenderness Extremities exam: Present: pedal edema. Absent: calf tenderness Neurological exam: Present: alert Psychiatric exam: Present: anxious Skin exam: Present: normal color Course Vital Signs 05/07/19 05/07/19 05/07/19 12:29 13:00 13:30 Temperature 97.9 F Pulse Rate 120 H 110 H 104 H Respiratory 18 26 H 24 Rate Blood Pressure 122/79 182/123 198/124 O2 Sat by Pulse 99 99 96 Oximetry 05/07/19 05/07/19 05/07/19 13:33 14:00 14:30 Temperature Pulse Rate 101 H 101 H Respiratory 20 Rate Blood Pressure 193/135 O2 Sat by Pulse Oximetry 05/07/19 05/07/19 05/07/19 15:00 15:30 16:00 Temperature Pulse Rate 100 120 H Respiratory 14 13 Rate Blood Pressure 214/133 216/134 227/140 O2 Sat by Pulse 95 94 L Oximetry EKG Findings - EKG Comments: EKG Findings:: Sinus tachycardia 112. NJ 142. QRS 136. QT 378. QTC 515. Left axis. Nonspecific intraventricular block. Repolarization change. Medical Decision Making - Medical Decision Making Patient reevaluated and improved following Ativan. Patient is drowsy. Patient and family are updated on results and plan. Patient does have new bundle-branch block. Patient also has concern for interstitial pneumonitis. Case was discussed with Dr. Ervin, covering for Dr. Byrne, who will admit. - Lab Data Result diagrams: 05/07/19 12:52 05/07/19 12:52 Lab Results 05/07/19 05/07/19 05/07/19 Range/Units 12:52 12:52 12:52 WBC 12.5 H (3.8-10.6) k/uL RBC 4.94 (3.80-5.40) m/uL Hgb 13.9 (11.4-16.0) gm/dL Hct 42.9 (34.0-46.0) % MCV 86.9 (80.0-100.0) fL MCH 28.1 (25.0-35.0) pg MCHC 32.3 (31.0-37.0) g/dL RDW 15.0 (11.5-15.5) % Plt Count 278 (150-450) k/uL Neutrophils % 75 % Lymphocytes % 17 % Monocytes % 4 % Eosinophils % 2 % Basophils % 0 % Neutrophils # 9.4 H (1.3-7.7) k/uL Lymphocytes # 2.2 (1.0-4.8) k/uL Monocytes # 0.5 (0-1.0) k/uL Eosinophils # 0.3 (0-0.7) k/uL Basophils # 0.0 (0-0.2) k/uL PT 9.9 (9.0-12.0) sec INR 0.9 (<1.2) APTT 24.3 (22.0-30.0) sec D-Dimer (<0.60) mg/L FEU Sodium 142 (137-145) mmol/L Potassium 4.5 (3.5-5.1) mmol/L Chloride 107 (98-107) mmol/L Carbon Dioxide 26 (22-30) mmol/L Anion Gap 9 mmol/L BUN 13 (7-17) mg/dL Creatinine 0.76 (0.52-1.04) mg/dL Est GFR (CKD-EPI)AfAm >90 (>60 ml/min/1.73 sqM) Est GFR (CKD-EPI)NonAf >90 (>60 ml/min/1.73 sqM) Glucose 129 H (74-99) mg/dL Calcium 9.8 (8.4-10.2) mg/dL Total Bilirubin 0.5 (0.2-1.3) mg/dL AST 23 (14-36) U/L ALT 27 (9-52) U/L Alkaline Phosphatase 86 (38-126) U/L Troponin I (0.000-0.034) ng/mL NT-Pro-B Natriuret Pep pg/mL Total Protein 7.6 (6.3-8.2) g/dL Albumin 4.5 (3.5-5.0) g/dL 05/07/19 05/07/19 05/07/19 Range/Units 12:52 12:52 12:52 WBC (3.8-10.6) k/uL RBC (3.80-5.40) m/uL Hgb (11.4-16.0) gm/dL Hct (34.0-46.0) % MCV (80.0-100.0) fL MCH (25.0-35.0) pg MCHC (31.0-37.0) g/dL RDW (11.5-15.5) % Plt Count (150-450) k/uL Neutrophils % % Lymphocytes % % Monocytes % % Eosinophils % % Basophils % % Neutrophils # (1.3-7.7) k/uL Lymphocytes # (1.0-4.8) k/uL Monocytes # (0-1.0) k/uL Eosinophils # (0-0.7) k/uL Basophils # (0-0.2) k/uL PT (9.0-12.0) sec INR (<1.2) APTT (22.0-30.0) sec D-Dimer 0.98 H (<0.60) mg/L FEU Sodium (137-145) mmol/L Potassium (3.5-5.1) mmol/L Chloride (98-107) mmol/L Carbon Dioxide (22-30) mmol/L Anion Gap mmol/L BUN (7-17) mg/dL Creatinine (0.52-1.04) mg/dL Est GFR (CKD-EPI)AfAm (>60 ml/min/1.73 sqM) Est GFR (CKD-EPI)NonAf (>60 ml/min/1.73 sqM) Glucose (74-99) mg/dL Calcium (8.4-10.2) mg/dL Total Bilirubin (0.2-1.3) mg/dL AST (14-36) U/L ALT (9-52) U/L Alkaline Phosphatase (38-126) U/L Troponin I 0.019 (0.000-0.034) ng/mL NT-Pro-B Natriuret Pep 953 pg/mL Total Protein (6.3-8.2) g/dL Albumin (3.5-5.0) g/dL - Radiology Data Radiology results: report reviewed (Computed tomography scan of the chest negative for pulmonary embolism. There is scattered areas of groundglass in filtrates and peribronchial cuffing that likely reflecting acute inflammatory process.), image reviewed (Chest x-ray shows interstitial prominence.) Disposition Clinical Impression: Chest pain, Pneumonitis Disposition: ADMITTED IP TO THIS HOSP Is patient prescribed a controlled substance at d/c from ED?: No Referrals: James Harvey DO [Primary Care Provider] - 1-2 days Decision Time: 16:33
[2019-05-07 13:33] LABS: Basophils % (A) 0 %; Eosinophils # (A) 0.3 k/uL (0-0.7); Eosinophils % (A) 2 %; HCT 42.9 % (34.0-46.0); HGB 13.9 gm/dL (11.4-16.0); Lymphocytes # (A) 2.2 k/uL (1.0-4.8); Lymphocytes % (A) 17 %; MCH 28.1 pg (25.0-35.0); MCHC 32.3 g/dL (31.0-37.0); MCV 86.9 fL (80.0-100.0); Mean Platelet Volume 7.1; Monocytes # (A) 0.5 k/uL (0-1.0); Monocytes % (A) 4 %; Neutrophils # (A) 9.4 k/uL (1.3-7.7); Neutrophils % (A) 75 %; Platelet Count 278 k/uL (150-450); RBC 4.94 m/uL (3.80-5.40); WBC 12.5 k/uL (3.8-10.6)
[2019-05-07] MEDS ORDERED: LORazepam 2 MG/ML INJ IV STA (13:33)
[2019-05-07 13:39] LABS: INR 0.9 (<1.2); Partial Thromboplastin Time 24.3 sec (22.0-30.0); Prothrombin Time 9.9 sec (9.0-12.0)
[2019-05-07 13:43] LABS: ALT 27 U/L (9-52); AST 23 U/L (14-36); African American GFR (CKD) >90 (>60 ml/min/1.73 sqM); Albumin 4.5 g/dL (3.5-5.0); Alkaline Phosphatase 86 U/L (38-126); Anion Gap 9 mmol/L; Blood Urea Nitrogen 13 mg/dL (7-17); Calcium 9.8 mg/dL (8.4-10.2); Carbon Dioxide 26 mmol/L (22-30); Chloride 107 mmol/L (98-107); Glucose 129 mg/dL (74-99); Potassium 4.5 mmol/L (3.5-5.1); Sodium 142 mmol/L (137-145); Total Bilirubin 0.5 mg/dL (0.2-1.3); Total Protein 7.6 g/dL (6.3-8.2)
--- NOTE | 2019-05-07 14:32 | XR ---
EXAMINATION TYPE: XR chest 2V DATE OF EXAM: 05/07/2019 COMPARISON: 06/17/2016 TECHNIQUE: PA and lateral views submitted. HISTORY: Shortness of breath FINDINGS: Diffuse interstitial pattern with cardiomegaly. No pneumothorax. Tiny bilateral effusions. Hypertroph ic and degenerative changes spine. IMPRESSION: 1. Correlate for mild venous congestion otherwise consider interstitial pneumonitis.
[2019-05-07] MEDS ORDERED: NITROGLYCERIN OINT 1 INCH/GM PACKET TOPICAL STA (14:48)
[2019-05-07] MEDS ORDERED: ENALAPRILAT 1.25 MG/ML 1 ML VIAL IVP STA (14:51)
--- NOTE | 2019-05-07 16:28 | CT ---
EXAMINATION TYPE: CT angio chest DATE OF EXAM: 05/07/2019 COMPARISON: HISTORY: Mid to right sided chest pain today with shortness of breath CT DLP: 634 mGycm CONTRAST: CT chest with contrast and 3D reconstruction with MIP imaging is performed with IV Contrast, patient injected with 100 mL of Isovue 370. Contrast-enhanced CT of the chest was performed through the course of the pulmonary arteries with philippe g and mediastinal window settings submitted. 3D reconstruction with MIP imaging was also performed. PULMONARY ARTERIES: The pulmonary arteries and their major tributaries are patent. I do not see amalia dence for sizable filling defect to suggest pulmonary embolic process. LUNGS: Scattered areas of groundglass infiltrate noted as well as peribronchial cuffing likely reflec t acute inflammatory process. Correlate clinically. No pulmonary nodule or mass is detected. No pleu ral effusion. MEDIASTINUM: Thoracic aorta is of normal caliber,however, evaluation is limited given timing of the contrast bolus. If there is concern for thoracic aortic pathology consider ARSEN. Correlate clinicall y . The heart is not enlarged. No evidence for mediastinal mass. No mediastinal lymph nodes greater than 1cm. HILAR STRUCTURES: No evidence for mass. No hilar lymph nodes greater than 1 cm. UPPER ABDOMEN: No significant abnormality is seen. IMPRESSION: 1. No evidence for Pulmonary embolism at this time. 2.Scattered areas of groundglass infiltrate noted as well as peribronchial cuffing likely reflect acu te inflammatory process. Correlate clinically.
[2019-05-07] MEDS ORDERED: AZITHROMYCIN 500 MG in SODIUM CHLORIDE 0.9% 250 ML IVPB STA (16:33)
[2019-05-07] MEDS ORDERED: IPRATROPIUM-ALBUTEROL 3 ML NEB INHALATION PRN (16:33)
[2019-05-07] MEDS ORDERED: PNEUMONIA PROTOCOL UTILIZED 1 EACH MISC PO PRN (16:33)
[2019-05-07] MEDS ORDERED: NITROGLYCERIN SL TABS 0.4 MG TAB SUBLINGUAL PRN (16:33)
[2019-05-07] MEDS ORDERED: cloNIDine HCL 0.1 MG TAB PO STA (17:12)
[2019-05-07] MEDS: SODIUM CHLORIDE 0.9% 1,000 ML IV SCH (17:46)
[2019-05-07] MEDS ORDERED: LABETALOL SYRINGE 5 MG/ML IVP STA (20:10)
[2019-05-07] MEDS: NITROGLYCERIN OINT 1 INCH/GM PACKET TOPICAL SCH ×2 (20:13→23:52)
[2019-05-07] MEDS: ACETAMINOPHEN TAB 325 MG TAB PO PRN (20:14)
[2019-05-07] MEDS: ASPIRIN 81 MG PO STA ×2 (20:14→22:21)
[2019-05-07] MEDS ORDERED: ONDANSETRON 4 MG/2 ML VIAL IVP STA (20:39)
[2019-05-07] MEDS: IPRATROPIUM-ALBUTEROL 3 ML NEB INHALATION SCH (20:53)
[2019-05-07] MEDS ORDERED: ACETAMINOPHEN TAB 500 MG TAB PO PRN (23:25)
[2019-05-07] MEDS ORDERED: ALBUTEROL INHALER 60 PUFF/8 GM INHALER INHALATION PRN (23:25)
[2019-05-07] MEDS: cloNIDine HCL 0.1 MG TAB PO SCH (23:51)
[2019-05-07] MEDS: glipiZIDE 5 MG TAB PO SCH (23:52)
[2019-05-07] MEDS: GABAPENTIN 400 MG CAP PO SCH (23:52)
[2019-05-08 02:53] LABS: Cholesterol 154 mg/dL (<200); HDL Cholesterol 42 mg/dL (40-60); LDL Cholesterol,Calculated 88 mg/dL (0-99); Triglycerides 121 mg/dL (<150)
[2019-05-08] MEDS: ACETAMINOPHEN TAB 325 MG TAB PO PRN ×2 (03:35→20:01)
[2019-05-08 03:44] LABS: Glucose,Whole Blood 57 mg/dL (75-99)
[2019-05-08 03:55] LABS: Glucose,Whole Blood 63 mg/dL (75-99)
[2019-05-08 04:12] LABS: Glucose,Whole Blood 94 mg/dL (75-99)
[2019-05-08] MEDS: SODIUM CHLORIDE 0.9% 1,000 ML IV SCH ×3 (04:16→20:10)
[2019-05-08 06:32] LABS: Glucose,Whole Blood 105 mg/dL (75-99)
[2019-05-08] MEDS: IPRATROPIUM-ALBUTEROL 3 ML NEB INHALATION SCH ×4 (07:10→18:33)
--- NOTE | 2019-05-08 07:11 | XR ---
EXAMINATION TYPE: XR chest 2V DATE OF EXAM: 05/08/2019 HISTORY: pneumonia. REFERENCE: Previous study dated 05/07/2019. FINDINGS: The heart is mildly enlarged. There is vascular congestion and mild interstitial change. I suspect small, bilateral effusions. There is some thickening of the posterior wall of the bronchus in termedius. IMPRESSION: IMPROVING CHANGES OF PULMONARY EDEMA.
[2019-05-08] MEDS: GABAPENTIN 400 MG CAP PO SCH ×3 (07:59→20:04)
[2019-05-08] MEDS ORDERED: ASPIRIN 325 MG TAB PO SCH (09:00)
[2019-05-08] MEDS: FUROSEMIDE 10 MG/ML 4 ML VIAL IV SCH ×2 (10:12→20:01)
[2019-05-08 11:27] LABS: Glucose,Whole Blood 131 mg/dL (75-99)
[2019-05-08] MEDS ORDERED: methylPREDNISolone SOD SUCCI 40 MG/ML 1 ML VIAL IV SCH (11:30)
[2019-05-08] MEDS: NITROGLYCERIN OINT 1 INCH/GM PACKET TOPICAL SCH (11:30)
[2019-05-08] MEDS: CARVEDILOL 6.25 MG TAB PO SCH ×2 (11:36→16:48)
[2019-05-08] MEDS: INSULIN ASPART (NovoLOG) 100 UNIT/ML VIAL SQ SCH ×3 (11:36→20:04)
[2019-05-08] MEDS: LISINOPRIL 20 MG TAB PO SCH (11:36)
--- NOTE | 2019-05-08 12:31 | CONS ---
CONSULTATION This is a pulmonary consultation. DATE OF SERVICE: May 08, 2019 This is a 43-year-old female who apparently presents to the emergency room seen by Dr. Magdi Rubin yesterday. She comes in with complaints of shortness of breath. It has been going on for about 3 days prior to admission. In addition, she was coughing and producing some phlegm. Also, she felt chest congestion and wheezing and also she had pain in the right chest area, which is clearly pleuritic in nature. It was very sharp, worse with coughing and deep breathing. The patient was admitted to the observation unit for further evaluation. We were consulted. The pain in the chest is primarily right-sided and very atypical for cardiac disease. It is sharp, worse on deep breathing and coughing. She denies any nausea, vomiting or diarrhea. No genitourinary complaints. She also complains of retaining fluids. She was thought to possibly have congestive heart failure. Her chest x-ray was read as that. She may have a component of CHF, but I believe this is primarily pulmonary in origin. She is a heavy smoker. Continues to smoke. She does have a nebulizer machine at home for which she uses albuterol and she has an albuterol inhaler. MEDICATIONS INCLUDE: Neurontin and extra strength Tylenol, albuterol inhaler, albuterol updrafts, clonidine and Glucotrol. ALLERGIES: SHE HAS ALLERGIES TO DILAUDID AND BERRIES. MEDICAL HISTORY: Includes probable COPD/asthma, CHF, GERD, hypertension, seizure disorder, and sleep apnea syndrome. She also has a history of kidney stones. In addition, she has a history of pneumonia and she apparently was on mechanical ventilator back in 2011. She also has a history of peptic ulcer disease, bilateral occipital neuritis, vertigo and neuropathy. SURGICAL HISTORY: Includes among other things, cholecystectomy, and hernia repair. She has also had brain surgery for seizures and headaches and right-sided salpingo-oophorectomy. She has had D and C, PICC line insertion, removal of a kidney stone/lithotripsy as well as a laparoscopic Cristy fundoplication and colonoscopy last year. SOCIAL HISTORY: Positive for heavy and ongoing tobacco use. She has no desire to quit at this time it appears. She denies any significant alcohol use. She does admit to marijuana use in the past. FAMILY HISTORY: Significant for father with atrial fibrillation, diabetes, hypertension. Father has a pacemaker. Her mother has a history of pancreatic cancer and she at age 58. She has a maternal uncle with lung cancer and maternal cousin with pancreatic cancer and a sister with previous AICD placement/pacemaker insertion. OCCUPATION HISTORY: Currently she does not work. REVIEW OF SYSTEMS: CONSTITUTIONAL negative. NEUROLOGIC: Negative. HEENT negative. CARDIOVASCULAR: Atypical chest pain. PULMONARY: Shortness of breath, chest tightness, wheezing, cough, chest congestion and pleuritic pain, particularly in the right chest area, it is sharp and it is worse with deep breathing, coughing or body movements. GI negative. negative. RHEUMATOLOGIC negative. IMMUNOLOGIC negative. ENDOCRINOLOGIC: Negative. DERMATOLOGIC all negative. PHYSICAL EXAMINATION: VITAL SIGNS: Current vital signs are reviewed. Her temperature is 97.7. Heart rate 90, respiratory rate 18, blood pressure 153/101, mean 118 and 2 L saturation 95%. GENERAL: Appears in no acute distress. HEENT examination is grossly unremarkable. Mucous membranes are moist. No oral lesions. NECK: Supple. Full range of motion. No adenopathy, thyromegaly or neck vein distention. CARDIOVASCULAR examination reveals regular rhythm and rate. Heart rate about mid 90s. S1, S2 normal. Heart sounds are distant. No murmur. LUNGS: Reveal coarse inspiratory and expiratory wheezes and rhonchi. She winces when she takes a deep breath. She has prolongation on forced maneuver. Adventitious lung sounds are more prominent on forced maneuver. No crackles. ABDOMEN: Obese. Bowel sounds are heard. EXTREMITIES are intact. Minimal edema. SKIN: Without rash. NEUROLOGIC examination is brief but nonfocal. LABORATORY DATA: Reviewed. White count 12.5, hemoglobin 13.9, hematocrit 42.9, platelet count 278,000. PT/INR PTT all normal. D-dimer 0.98. Electrolytes look pretty normal. N terminal proBNP is modestly elevated at 953. Troponins were 0.020 and 0.015. Cholesterol was 154. The rest of the labs look pretty good. X-RAY: Chest x-ray from the shows cardiomegaly and possible mild fluid overload. There may be small effusions. Chest x-ray from today shows improved pattern of possible fluid overload. A CTA was done on the , which showed no evidence of pulmonary embolism. The radiologist did mention and I do agree that there is scattered areas of ground-glass infiltrate, which may relate to mild edema and/or alveolitis/pneumonitis. Medications are reviewed and will be adjusted accordingly. ASSESSMENT: 1. Shortness of breath with chest congestion and pleuritic chest pain, right- sided, possibly multifactorial in part related to underlying mild CHF, but most likely related to chronic obstructive pulmonary disease exacerbation complicated by pleurisy and purulent tracheobronchitis. 2. Obesity. 3. History of mild asthma. 4. History of heart failure. 5. Status post AICD placement. 6. History of gastroesophageal reflux disease. 7. History of hypertension. 8. History of seizure disorder. 9. History of sleep apnea syndrome. 10.History of kidney stones. 11.Previous episode of respiratory failure requiring intubation and mechanical ventilation. 12.History of peptic ulcer. 13.History of neuropathy. PLAN: Medications are reviewed. We will make sure she is on appropriate medications for the COPD exacerbation. Steroids will help with the wheezing and the adventitious lung sounds as well as the pleurisy. Additional recommendations and suggestions are forthcoming. I did correctional classification counselor the patient about the importance of smoking cessation. She did not seem interested in smoking cessation. She the seems to think that the tobacco is not hurting her at all. No additional recommendations are made. Prognosis is guarded. We will see the patient as needed. MMODL / IJN: [id number] / YASMANI
--- NOTE | 2019-05-08 12:33 | P.CRDCN ---
History of Present Illness History of present illness: This is a pleasant 43-year-old female past medical history significant for COPD, hypertension, asthma, gastroesophageal reflux disease, obstructive sleep apnea and heart failure 20 years ago during per the patient. 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 We have been asked to see her in consultation secondary to chest pain. She states since the beginning of April she has noticed increased swelling of her hands, legs, feet and abdomen. Shortness of breath and has recently started coughing. She states her cough is dry not really bringing up a significant amount of sputum. She is experiencing pressure in the midsternal region with radiation to the right anterior chest wall as well as the right axillary region this is associated with deep inspiration or cough. She had been waiting to get an with her primary care physician this coming week however when she woke up yesterday morning's symptoms had seemed to worsen so she came to the hospital for further evaluation. EKG reveals sinus tachycardia heart rate 112, left axis deviation intraventricular conduction delay, nonspecific ST changes. Chest x-ray reveals mild venous congestion and interstitial pneumonitis. CTA chest negative for pulmonary embolism, scattered areas of ground glass infiltrates noted and parabronchial cuffing. Laboratory data reviewed, WBC 12.5, hemoglobin 13.9, platelets 278, d-dimer 0.98, sodium 142, potassium 4.5, creatinine 0.79, cardiac enzymes negative 3, NT proBNP 953, LDL 88 and HDL 42. Daily cardiac medications include clonidine 0.3 mg at bedtime. Most recent stress test performed 2015 with a dobutamine stress echocardiogram was negative for stress-induced ischemia. At the time of my exam: CONSTITUTIONAL: Denies fever. Denies chills. EYES: Denies blurred vision. Denies vision changes. Denies eye pain. EARS, NOSE, MOUTH & THROAT: Denies headache. Denies sore throat. Denies ear pain. CARDIOVASCULAR: Complains of pleuritic right-sided and mid sternal chest pain. Complains of shortness of breath. Denies orthopnea. Denies PND. Denies palpitations. RESPIRATORY: Complains of cough. GASTROINTESTINAL: Denies abdominal pain. Denies diarrhea. Denies constipation. Denies nausea. Denies vomiting. MUSCULOSKELETAL: Denies myalgias. INTEGUMENTARY: Denies pruitis. Denies rash. NEUROLOGIC: Denies numbness. Denies tingling. Denies weakness. PSYCHIATRIC: Denies anxiety. Denies depression. ENDOCRINE: Denies fatigue. Denies weight change. Denies polydipsia. Denies polyurina. GENITOURINARY: Denies burning, hematuria or urgency with micturation. HEMATOLOGIC: Denies history of anemia. Denies bleeding. Blood pressure 153/101 heart rate 104 afebrile maintaining oxygen saturation on nasal cannula GENERAL: This is a 43-year-old female in no apparent distress at the time of my examination. Morbidly obese. HEENT: Head is atraumatic, normocephalic. Pupils are equal, round. Sclerae anicteric. Conjunctivae are clear. Mucous membranes of the mouth are moist. Neck is supple. There is no jugular venous distention. No carotid bruit is heard. LUNGS: Expiratory wheezes, bibasilar rales and scattered rhonchi. No chest wall tenderness is noted on palpation or with deep breathing. HEART: Regular rate and rhythm without murmurs, rubs or gallops. S1 and S2 heard. ABDOMEN: Soft, nontender. Bowel sounds are heard. No organomegaly noted. EXTREMITIES: Trace bilateral lower extremity pitting edema and no calf tenderness noted. VASCULAR: Radial and dorsalis pedis pulses palpated, no evidence of clubbing. NEUROLOGIC: Patient is awake, alert and oriented x3. ASSESSMENT Acute exacerbation of heart failure, unknown type. Awaiting echocardiogram. Acute on chronic COPD Leukocytosis Chest pain, atypical. Pain is pleuritic and likely secondary to cough and COPD. Hypertension Asthma Chronic nicotine dependence PLAN Symptoms are not suggestive of angina, acute coronary event has been ruled out. Underlying coronary artery disease to be ruled out once acute COPD and heart mio lure have resolved. Initiate on Lasix 40 mg IV twice a day, lisinopril and Coreg. Follow kidney function and electrolytes in the morning. Decrease aspirin to 81 mg daily. Recommend pulmonary evaluation. We will continue to follow and make recommendations accordingly. Thank you kindly for this consultation. Nurse Practitioner note has been reviewed, I agree with a documented findings and plan of care. Patient was seen and examined. Past Medical History Past Medical History: Asthma, Heart Failure, COPD, GERD/Reflux, Hypertension, Renal Disease, Seizure Disorder, Sleep Apnea/CPAP/BIPAP Additional Past Medical History / Comment(s): nephrolithiasis, HX pneumonia /vented-2011, peptic ulcers, Sleep apnea-no device, bilateral occipital neuritis, headaches, vertigo, neuropathy;"legs give out at times". had episode of CHF >10 yrs. ago-has had no problems since. PAST COO HISTORY: She has no history of STDs. divertiulitis History of Any Multi-Drug Resistant Organisms: None Reported Past Surgical History: Cholecystectomy, Hernia Repair Additional Past Surgical History / Comment(s): brain surgery 2013 for seizures & headaches, Right ovary/tube removed 2009, D&C, Picc line insertion since removed, Kidney stone surgically removed & lithotripsy., Laproscopic Cristy Fundoplasty. Colonoscopy 2018(2nd). Past Anesthesia/Blood Transfusion Reactions: No Reported Reaction, Motion Sickness Past Psychological History: Anxiety, Depression Additional Psychological History / Comment(s): . Smoking Status: Heavy tobacco smoker Past Alcohol Use History: None Reported Past Drug Use History: Marijuana Additional Drug Use History / Comment(s): MARIJUANA DAILY. - Past Family History Father Family Medical History: AFIB, Diabetes Mellitus, Hypertension Additional Family Medical History / Comment(s): Father has a pacer. Mother Family Medical History: Cancer Additional Family Medical History / Comment(s): Mother of pancreatic cancer at the age of 58yrs. Maternal cousin had pancreatic cancer. Maternal uncle had lung cancer. Sister(s) Family Medical History: AICD/Pacemaker Medications and Allergies Home Medications Medication Instructions Recorded Confirmed Type Gabapentin [Neurontin] 400 mg PO TID 10/02/05/07/19 History Acetaminophen [Tylenol Extra 2,000 mg PO TID PRN 05/07/19 05/07/19 History Strength] Albuterol Inhaler [Ventolin Hfa 2 puff INHALATION RT-Q6H PRN 05/07/19 05/07/19 History Inhaler] cloNIDine HCL 0.3 mg PO HS 05/07/19 05/07/19 History glipiZIDE [Glucotrol] 5 mg PO HS 05/07/19 05/07/19 History Allergies Allergy/AdvReac Type Severity Reaction Status Date / Time pregabalin [From Lyrica] Allergy Unknown Unknown Verified 05/07/19 22:49 hydromorphone HCl Allergy headache Verified 05/07/19 22:49 [From Dilaudid] BERRIES Allergy Anaphylaxis Uncoded 05/07/19 22:49 Physical Exam Vitals: Vital Signs Temp Pulse Pulse Pulse Resp BP BP 05/08/19 07:11 89 05/08/19 07:00 97.5 F L 92 18 163/104 05/08/19 03:45 98.2 F 16 147/72 05/08/19 00:12 05/08/19 00:00 98.0 F 83 16 147/94 05/07/19 22:44 98.2 F 91 14 168/97 05/07/19 22:00 80 11 L 137/93 05/07/19 21:51 81 16 137/83 05/07/19 21:30 89 4 L 153/111 05/07/19 21:02 82 05/07/19 21:00 93 4 L 172/116 05/07/19 20:55 84 05/07/19 20:30 72 16 173/108 05/07/19 20:00 80 24 05/07/19 19:41 170/98 05/07/19 19:30 88 19 178/105 05/07/19 19:00 86 19 183/113 05/07/19 18:30 112 H 27 H 194/123 05/07/19 18:00 92 13 205/122 05/07/19 17:30 164/101 05/07/19 17:00 105 H 10 L 206/132 05/07/19 16:30 115 H 18 227/140 05/07/19 16:00 227/140 05/07/19 15:30 120 H 13 216/134 05/07/19 15:00 100 14 214/133 05/07/19 14:30 101 H 20 05/07/19 14:00 193/135 05/07/19 13:33 101 H 05/07/19 13:30 104 H 24 198/124 05/07/19 13:00 110 H 26 H 182/123 05/07/19 12:29 97.9 F 120 H 18 122/79 Pulse Ox 05/08/19 07:11 98 05/08/19 07:00 99 05/08/19 03:45 97 05/08/19 00:12 98 05/08/19 00:00 98 05/07/19 22:44 98 05/07/19 22:00 05/07/19 21:51 100 05/07/19 21:30 05/07/19 21:02 05/07/19 21:00 05/07/19 20:55 05/07/19 20:30 05/07/19 20:00 05/07/19 19:41 05/07/19 19:30 05/07/19 19:00 05/07/19 18:30 05/07/19 18:00 05/07/19 17:30 05/07/19 17:00 05/07/19 16:30 96 05/07/19 16:00 05/07/19 15:30 94 L 05/07/19 15:00 95 05/07/19 14:30 05/07/19 14:00 05/07/19 13:33 05/07/19 13:30 96 05/07/19 13:00 99 05/07/19 12:29 99 Intake and Output 05/07/19 05/08/19 05/08/19 22:59 06:59 14:59 Other: Voiding Method Toilet # Voids 1 1 Results 05/07/19 12:52 05/07/19 12:52 Cardiac Enzymes 05/07/19 05/07/19 05/07/19 Range/Units 12:52 12:52 19:02 AST 23 (14-36) U/L Troponin I 0.019 0.020 (0.000-0.034) ng/mL 05/08/19 Range/Units 00:49 AST (14-36) U/L Troponin I 0.015 (0.000-0.034) ng/mL Coagulation 05/07/19 Range/Units 12:52 PT 9.9 (9.0-12.0) sec APTT 24.3 (22.0-30.0) sec Lipids 05/07/19 Range/Units 12:52 Triglycerides 121 (<150) mg/dL Cholesterol 154 (<200) mg/dL HDL Cholesterol 42 (40-60) mg/dL CBC 05/07/19 Range/Units 12:52 WBC 12.5 H (3.8-10.6) k/uL RBC 4.94 (3.80-5.40) m/uL Hgb 13.9 (11.4-16.0) gm/dL Hct 42.9 (34.0-46.0) % Plt Count 278 (150-450) k/uL Comprehensive Metabolic Panel 05/07/19 Range/Units 12:52 Sodium 142 (137-145) mmol/L Potassium 4.5 (3.5-5.1) mmol/L Chloride 107 (98-107) mmol/L Carbon Dioxide 26 (22-30) mmol/L BUN 13 (7-17) mg/dL Creatinine 0.76 (0.52-1.04) mg/dL Glucose 129 H (74-99) mg/dL Calcium 9.8 (8.4-10.2) mg/dL AST 23 (14-36) U/L ALT 27 (9-52) U/L Alkaline Phosphatase 86 (38-126) U/L Total Protein 7.6 (6.3-8.2) g/dL Albumin 4.5 (3.5-5.0) g/dL Current Medications Generic Name Dose Route Start Last Admin Trade Name Freq PRN Reason Stop Dose Admin Acetaminophen 650 mg 05/07/19 20:10 05/08/19 03:35 Tylenol Tab PO 650 mg Q6HR PRN Administration Fever and/ or Pain Albuterol/Ipratropium 3 ml 05/07/19 20:00 05/08/19 07:10 Duoneb 0.5 Mg-3 Mg/3 Ml Soln INHALATION 3 ml RT-QID ARLINE Administration Albuterol/Ipratropium 3 ml 05/07/19 16:33 Duoneb 0.5 Mg-3 Mg/3 Ml Soln INHALATION RT-Q4H PRN shortness of breath Aspirin 325 mg 05/08/19 09:00 Aspirin PO DAILY [facility] Azithromycin 500 mg 05/08/19 16:00 Zithromax PO DAILY@1600 [facility] Clonidine 0.3 mg 05/07/19 23:30 05/07/19 23:51 Catapres PO Not Given HS [facility] Gabapentin 400 mg 05/07/19 23:30 05/07/19 23:52 Neurontin PO Not Given TID [facility] Glipizide 5 mg 05/07/19 23:30 05/07/19 23:52 Glucotrol PO Not Given HS [facility] Ceftriaxone Sodium 1 gm/ 50 mls @ 100 mls/hr 05/08/19 09:00 Sodium Chloride IVPB 05/11/19 09:01 Q24HR [facility] Sodium Chloride 1,000 mls @ 100 mls/hr 05/07/19 16:45 05/08/19 04:16 Saline 0.9% IV Not Given .Q10H [facility] Miscellaneous Information 1 each 05/07/19 16:33 Pneumonia Protocol Utilized PO ONCE PRN Per Protocol Nitroglycerin 1 inch 05/07/19 18:00 05/07/19 23:52 Nitro-Bid Oint TOPICAL Not Given Q6HR [facility] Nitroglycerin 0.4 mg 05/07/19 16:33 Nitrostat SUBLINGUAL Q5M PRN Chest Pain Intake and Output 05/07/19 05/08/19 05/08/19 22:59 06:59 14:59 Other: Voiding Method Toilet # Voids 1 1 05/07/19 12:52 05/07/19 12:52
[2019-05-08] MEDS: methylPREDNISolone SOD SUCCI 125 MG/2 ML VIAL IV SCH ×3 (12:44→23:18)
--- NOTE | 2019-05-08 13:39 | P.HPIM ---
History of Present Illness H&P Date: 05/08/19 Chief Complaint: Shortness of breath This is a 43-year-old female patient of Dr. Harvey with past medical history of COPD, diabetes mellitus type 2, diabetic neuropathy, hypertension, cardiomyopathy, obstructive sleep apnea without device, kidney stones, occipital neuritis, chronic headaches and seizures, hiatal hernia status post Cristy fundoplication, Chiari malformationstatus post craniotomy in 2013, tobacco use and dependence, daily marijuana use. Patient gives history that she had difficulty breathing that started yesterday morning. She also had some chest pain on the right side of her chest that went around to the lateral side. She has been having significant cough. She complains of edema all over her body. She states she has lost 77 pounds or 15 month. By using her bicycle but this summer she has gained back 20 pounds. Patient presented to [facility] emergency center for evaluation. She was afebrile, initial heart rate 120, blood pressure 122/79, pulse ox 99%. Blood pressure was up to 227/140. EKG was a sinus tachycardia, left axis deviation intraventricular conduction delay, nonspecific ST changes. WBC 12.5, hemoglobin 13.9, blood sugar 129, creatinine 0.76. Electrolytes within normal limits. Liver function tests within normal limits. D-dimer 0.98. Troponin 0.019, proBNP 953. Chest x-ray reports correlate for mild venous congestion otherwise consider interstitial pneumonitis. A CTA of the chest showed no pulmonary embolism. Scattered areas of groundglass infiltrate noted as well as peribronchial cuffing likely reflect acute inflammatory process. While in the emergency center, for her blood pressure she was given clonidine, Vasotec, labetalol, Nitropaste. Patient was started on antibiotics, DuoNeb treatments, consult cardiology for chest pain and bundle branch block and patie nt admitted to the observation unit. Blood cultures status received. Repeat chest x-ray shows improving changes of pulmonary edema. Review of Systems Constitutional: Reports fatigue, Reports weakness, Denies anorexia, Denies chills, Denies fever, Denies poor appetite Ears, nose, mouth and throat: Denies dysphagia, Denies nasal congestion, Denies nasal discharge, Denies vertigo Cardiovascular: Reports chest pain, Reports decreased exercise tolerance, Reports dyspnea on exertion, Reports edema, Reports leg edema, Reports shortness of breath Respiratory: Reports cough, Reports cough with sputum, Reports dyspnea, Denies excessive sputum, Denies hemoptysis, Denies home oxygen Gastrointestinal: Denies abdominal pain, Denies loss of appetite, Denies nausea, Denies vomiting Genitourinary: Denies dysuria, Denies urgency, Denies urinary frequency Musculoskeletal: Denies muscle weakness, Denies myalgias Integumentary: Denies pruritus, Denies rash, Denies wounds Neurological: Denies aphasia, Denies change in mentation, Denies change in speech, Denies confusion, Denies seizures Psychiatric: Denies anxiety, Denies depression Endocrine: Denies fatigue, Denies weight change Past Medical History Past Medical History: Asthma, Heart Failure, COPD, GERD/Reflux, Hypertension, Renal Disease, Seizure Disorder, Sleep Apnea/CPAP/BIPAP Additional Past Medical History / Comment(s): nephrolithiasis, HX pneumonia /vented-2011, peptic ulcers, Sleep apnea-no device, bilateral occipital neuritis, headaches, vertigo, neuropathy;"legs give out at times". had episode of CHF >10 yrs. ago-has had no problems since. PAST PATIENT PLACEMENT COORDINATOR HISTORY: She has no history of STDs. divertiulitis History of Any Multi-Drug Resistant Organisms: None Reported Past Surgical History: Cholecystectomy, Hernia Repair Additional Past Surgical History / Comment(s): brain surgery 2012 for seizures & headaches, Right ovary/tube removed 2009, D&C, Picc line insertion since removed, Kidney stone surgically removed & lithotripsy., Laproscopic Cristy Fundoplasty. Colonoscopy 2018(2nd). Past Anesthesia/Blood Transfusion Reactions: No Reported Reaction, Motion Sickness Past Psychological History: Anxiety, Depression Additional Psychological History / Comment(s): . Smoking Status: Heavy tobacco smoker Past Alcohol Use History: None Reported Additional Past Alcohol Use History / Comment(s): patient is a smoker 2 packs per day since she was 13 years of age and recently cut back to 5 cigarettes per day over the past month. She drinks alcohol very rarely. She smokes marijuana every day usually 5-6 joints per day. Past Drug Use History: Marijuana Additional Drug Use History / Comment(s): MARIJUANA DAILY. - Past Family History Father Family Medical History: AFIB, Diabetes Mellitus, Hypertension Additional Family Medical History / Comment(s): Father is alive at age 67 with history of atrial fibrillation, diabetes, hypertension, pacemaker. Mother Family Medical History: Cancer Additional Family Medical History / Comment(s): Mother of pancreatic cancer at the age of 58yrs. Maternal cousin had pancreatic cancer. Maternal uncle had lung cancer. Sister(s) Family Medical History: AICD/Pacemaker Additional Family Medical History / Comment(s): the patient has one sister with AICD. Second sister has no major medical problems. Patient's 1 brother that is healthy. Patient has one son and one daughter with no major medical problems. Medications and Allergies Home Medications Medication Instructions Recorded Confirmed Type Gabapentin [Neurontin] 400 mg PO TID 10/02/16 05/07/19 History Acetaminophen [Tylenol Extra 2,000 mg PO TID PRN 05/07/19 05/07/19 History Strength] Albuterol Inhaler [Ventolin Hfa 2 puff INHALATION RT-Q6H PRN 05/07/19 05/07/19 History Inhaler] cloNIDine HCL 0.3 mg PO HS 05/07/19 05/07/19 History glipiZIDE [Glucotrol] 5 mg PO HS 05/07/19 05/07/19 History Allergies Allergy/AdvReac Type Severity Reaction Status Date / Time pregabalin [From Lyrica] Allergy Unknown Unknown Verified 05/07/19 22:49 hydromorphone HCl Allergy headache Verified 05/07/19 22:49 [From Dilaudid] BERRIES Allergy Anaphylaxis Uncoded 05/07/19 22:49 Physical Exam Vitals: Vital Signs Temp Pulse Pulse Pulse Resp BP BP 05/08/19 07:26 92 05/08/19 07:11 89 05/08/19 07:00 97.5 F L 92 18 163/104 05/08/19 03:45 98.2 F 16 147/72 05/08/19 00:12 05/08/19 00:00 98.0 F 83 16 147/94 05/07/19 22:44 98.2 F 91 14 168/97 05/07/19 22:00 80 11 L 137/93 05/07/19 21:51 81 16 137/83 05/07/19 21:30 89 4 L 153/111 05/07/19 21:02 82 05/07/19 21:00 93 4 L 172/116 05/07/19 20:55 84 05/07/19 20:30 72 16 173/108 05/07/19 20:00 80 24 05/07/19 19:41 170/98 05/07/19 19:30 88 19 178/105 05/07/19 19:00 86 19 183/113 05/07/19 18:30 112 H 27 H 194/123 05/07/19 18:00 92 13 205/122 05/07/19 17:30 164/101 05/07/19 17:00 105 H 10 L 206/132 05/07/19 16:30 115 H 18 227/140 05/07/19 16:00 227/140 05/07/19 15:30 120 H 13 216/134 05/07/19 15:00 100 14 214/133 05/07/19 14:30 101 H 20 05/07/19 14:00 193/135 05/07/19 13:33 101 H 05/07/19 13:30 104 H 24 198/124 05/07/19 13:00 110 H 26 H 182/123 05/07/19 12:29 97.9 F 120 H 18 122/79 Pulse Ox 05/08/19 07:26 05/08/19 07:11 98 05/08/19 07:00 99 05/08/19 03:45 97 05/08/19 00:12 98 05/08/19 00:00 98 05/07/19 22:44 98 05/07/19 22:00 05/07/19 21:51 100 05/07/19 21:30 05/07/19 21:02 05/07/19 21:00 05/07/19 20:55 05/07/19 20:30 05/07/19 20:00 05/07/19 19:41 05/07/19 19:30 05/07/19 19:00 05/07/19 18:30 05/07/19 18:00 05/07/19 17:30 05/07/19 17:00 05/07/19 16:30 96 05/07/19 16:00 05/07/19 15:30 94 L 05/07/19 15:00 95 05/07/19 14:30 05/07/19 14:00 05/07/19 13:33 05/07/19 13:30 96 05/07/19 13:00 99 05/07/19 12:29 99 Intake and Output 05/07/19 05/08/19 05/08/19 22:59 06:59 14:59 Other: Voiding Method Toilet # Voids 1 1 Gen: This is a morbidly obese female. She isfound in her room ambulating from the bathroomand appears to be in no acute distress. HEENT: Head is atraumatic, normocephalic. Pupils equal, round. Sclerae is anicteric. NECK: Supple. No JVD. No lymphadenopathy. No thyromegaly. LUNGS: bibasilar rales and scattered rhonchi. No intercostal retractions. HEART: Regular rate and rhythm. No murmur. ABDOMEN: Soft. Bowel sounds are present. No masses. Mild left upper quadrant tenderness. EXTREMITIES: bilateral trace lower extremity edema and edema to bilateral hands. No calf tenderness. NEUROLOGICAL: Patient is awake, alert and oriented x3. Cranial nerves 2 through 12 are grossly intact. Results CBC & Chem 7: 05/07/19 12:52 05/07/19 12:52 Labs: Abnormal Lab Results - Last 24 Hours (Table) 05/07/19 05/07/19 05/07/19 Range/Units 12:52 12:52 12:52 WBC 12.5 H (3.8-10.6) k/uL Neutrophils # 9.4 H (1.3-7.7) k/uL D-Dimer 0.98 H (<0.60) mg/L FEU Glucose 129 H (74-99) mg/dL POC Glucose (mg/dL) (75-99) mg/dL 05/08/19 05/08/19 05/08/19 Range/Units 03:42 03:53 06:30 WBC (3.8-10.6) k/uL Neutrophils # (1.3-7.7) k/uL D-Dimer (<0.60) mg/L FEU Glucose (74-99) mg/dL POC Glucose (mg/dL) 57 L 63 L 105 H (75-99) mg/dL Thrombosis Risk Factor Assmnt - DVT/VTE Prophylaxis DVT/VTE Prophylaxis: Pharmacologic Prophylaxis ordered - Choose All That Apply Any of the Below Risk Factors Present?: Yes Each Factor Represents 1 point: Abnormal pulmonary function (COPD), Age 41-60 years, Hx of IBD, Obesity (BMI >25), Swollen legs (current) Other Risk Factors: No Other congenital or acquired thrombophilia - If yes, enter type in comment: No Thrombosis Risk Factor Assessment Total Risk Factor Score: 5 Thrombosis Risk Factor Assessment Level: High Risk Assessment and Plan Plan: 1. Acute probable systolic heart failure with history of cardiomyopa thy. Cardiology consult appreciated. Continue Lasix 40 mg IV every 8 hours. Patient is diuresing well. Echocardiogram has been ordered. Coreg 6.125 mg twice daily started. continue aspirin 81 mg daily. 2. Acute exacerbation of COPD, possible pneumonia. Cardiology has had a consult with pulmonary medicine. the patient will be started on Solu-Medrol, continue DuoNeb treatments, azithromycin and ceftriaxone. 3. Chest pain right-sided secondary to cough, musculoskeletal. 4. Hypertensive emergency status post IV labetalol, IV Vasotec, Nitro-Bid, Catapres in the ER. patient started on Coreg 6.25 mg twice daily, continue Catapres 0.3 mg at bedtime, lisinopril 20 mg daily.. 5. Diabetes mellitus type 2. continue glipizide and NovoLog scale. 6. Diabetic neuropathy. Continue Neurontin. 7. Obstructive sleep apnea. 9. History of Chiari malformation status post craniotomy in 2012, stable 10. Chronic headaches and seizure disorder under the care of jeff Smith. 11. Hiatal hernia status post Cristy fundoplication. 12. Active tobacco use and dependence. nicotine patch. 13. Active marijuana use daily. 14. DVT prophylaxis. 15. GI prophylaxis. Patient will be admitted to the hospital for a minimum of 2 night stay. Impression and plan of care have been directed as dictated by the signing physician. Radha Garvey nurse practitioner acting as scribe for signing physician.
[2019-05-08] MEDS ORDERED: AZITHROMYCIN 500 MG TAB PO SCH (16:00)
[2019-05-08 16:38] LABS: Glucose,Whole Blood 185 mg/dL (75-99)
[2019-05-08] MEDS: NICOTINE 7MG/24HR PATCH TRANSDERM SCH (16:48)
--- NOTE | 2019-05-08 18:14 | ECHOF ---
Referral Reason:cp sob swelling MEASUREMENTS -------- HEIGHT: 154.9 cm WEIGHT: 104.3 kg BP: RVIDd: 1.9 cm (< 3.3) IVSd: 1.2 cm (0.6 - 1.1) LVIDd: 4.4 cm (3.9 - 5.3) LVPWd: 1.4 cm (0.6 - 1.1) IVSs: 1.8 cm LVIDs: 3.2 cm LVPWs: 2.2 cm LAESV Index (A-L): 32.23 ml/m Ao Diam: 2.8 cm (2.0 - 3.7) AV Cusp: 1.8 cm (1.5 - 2.6) LA Diam: 3.9 cm (2.7 - 3.8) MV EXCURSION: 11.453 mm (> 18.000) MV EF SLOPE: 39 mm/s (70 - 150) EPSS: 1.1 cm MV E Aravind: 1.01 m/s MV DecT: 181 ms MV A Aravind: 1.02 m/s MV E/A Ratio: 0.98 RAP: 5.00 mmHg RVSP: 15.77 mmHg FINDINGS -------- Sinus rhythm. This was a technically good study. The left ventricular size is normal. There is mild concentric left ventricular hypertrophy. Overa ll left ventricular systolic function is mildly impaired with, an EF between 45 - 50 %. Increased L AP Grade 2 Diastolic Dysfunction. Basal inferior LV wall motion is hypokinetic. The right ventricle is normal in size. LA is midly dilated 29-33ml/m2. The right atrial size is normal. The aortic valve is trileaflet and appears structurally normal. The mitral valve is normal. Moderate mitral regurgitation is present. Mild tricuspid regurgitation present. Right ventricular systolic pressure is normal at < 35 mmHg. There is no pulmonic regurgitation present. The aortic root size is normal. IVC Not well visulized. There is no pericardial effusion. CONCLUSIONS -------- 1. Sinus rhythm. 2. This was a technically good study. 3. The left ventricular size is normal. 4. There is mild concentric left ventricular hypertrophy. 5. Increased LAP Grade 2 Diastolic Dysfunction. 6. Basal inferior LV wall motion is hypokinetic. 7. The right ventricle is normal in size. 8. LA is midly dilated 29-33ml/m2. 9. The right atrial size is normal. 10. The aortic valve is trileaflet and appears structurally normal. 11. The mitral valve is normal. 12. Moderate mitral regurgitation is present. 13. Mild tricuspid regurgitation present. 14. Right ventricular systolic pressure is normal at < 35 mmHg. 15. There is no pulmonic regurgitation present. 16. The aortic root size is normal. 17. IVC Not well visulized. 18. There is no pericardial effusion. DIRECTOR OF COUNTERINTELLIGENCE: Emerita Cardenas RDCS
[2019-05-08] MEDS: SYMBICORT 160-4.5 MCG INHALER INHALATION SCH (18:33)
[2019-05-08 19:43] LABS: Glucose,Whole Blood 240 mg/dL (75-99)
[2019-05-08] MEDS: cloNIDine HCL 0.1 MG TAB PO SCH (20:02)
[2019-05-08] MEDS: glipiZIDE 5 MG TAB PO SCH (20:03)
[2019-05-09 03:55] VITALS: TEMP 97.5
[2019-05-09] MEDS: methylPREDNISolone SOD SUCCI 125 MG/2 ML VIAL IV SCH (05:21)
[2019-05-09 06:34] LABS: Glucose,Whole Blood 245 mg/dL (75-99)
[2019-05-09 07:08] LABS: African American GFR (CKD) >90 (>60 ml/min/1.73 sqM); Anion Gap 12 mmol/L; Blood Urea Nitrogen 18 mg/dL (7-17); Calcium 9.8 mg/dL (8.4-10.2); Carbon Dioxide 26 mmol/L (22-30); Chloride 102 mmol/L (98-107); Glucose 256 mg/dL (74-99); Potassium 4.4 mmol/L (3.5-5.1); Sodium 140 mmol/L (137-145)
[2019-05-09 07:10] VITALS: RESP 18
[2019-05-09] MEDS: SYMBICORT 160-4.5 MCG INHALER INHALATION SCH (07:24)
[2019-05-09] MEDS: IPRATROPIUM-ALBUTEROL 3 ML NEB INHALATION SCH ×2 (07:24→11:28)
[2019-05-09] MEDS: FUROSEMIDE 10 MG/ML 4 ML VIAL IV SCH (07:39)
[2019-05-09] MEDS: GABAPENTIN 400 MG CAP PO SCH (07:39)
[2019-05-09] MEDS: INSULIN ASPART (NovoLOG) 100 UNIT/ML VIAL SQ SCH ×2 (07:40→11:56)
[2019-05-09] MEDS: NICOTINE 7MG/24HR PATCH TRANSDERM SCH (07:40)
[2019-05-09] MEDS: SODIUM CHLORIDE 0.9% 1,000 ML IV SCH (07:40)
[2019-05-09] MEDS: LISINOPRIL 20 MG TAB PO SCH (07:40)
[2019-05-09] MEDS: CARVEDILOL 6.25 MG TAB PO SCH (07:40)
[2019-05-09] MEDS ORDERED: ASPIRIN 81 MG PO SCH (09:00)
--- NOTE | 2019-05-09 09:59 | PN ---
PROGRESS NOTE DATE OF SERVICE: May 09, 2019 A 43-year-old female with a history of probable COPD. She was admitted with a COPD exacerbation. In addition, she had pleuritic chest pain particularly in the right side of the chest. I believe her problem was more likely related to lung disease than cardiac disease. Anyway, the patient is doing much better. Her breathing is much improved. She still is coughing. Producing a small amount of phlegm. The pain is much better. She was seen by Cardiology. They felt that her condition was more lung than cardiac in nature. The CT angiogram that was done on May 07 was negative for PE. No fever or chills. No chest pain or chest discomfort. PHYSICAL EXAMINATION: VITAL SIGNS: Current vital signs are stable. Temperature 97.5. Heart rate 82. Respiratory rate 15, blood pressure 144/89, mean 107, room-air saturation 97%. GENERAL: She appears in no acute distress. HEENT examination is grossly unremarkable. Mucous membranes are moist. No oral lesions. NECK: Supple. Full range of motion. There is no adenopathy, thyromegaly or neck vein distention. CARDIOVASCULAR examination reveals regular rhythm and rate. Heart rate in mid 80s. S1, S2 normal. No S3, S4, or murmur. Heart sounds are slightly diminished. LUNGS: Reveal mostly clear. A few scattered rhonchi. No wheezes or crackles. Breath sounds are improved from yesterday. Slight prolongation on forced maneuver. ABDOMEN: Obese. Bowel sounds are heard. EXTREMITIES are intact. Minimal edema. SKIN: Without rash. NEUROLOGIC examination is brief but nonfocal. LABS: Reviewed. Nothing new from today. Most of the labs are from the . Microbiologic studies including blood cultures are negative. Chest x-ray from yesterday shows improvement. The radiologist were interpreting her x-ray showing fluid overload. Personally, I do not believe that was a major issue and her N-terminal proBNP was only modestly elevated at 953. Medications are reviewed. She is getting all the usual medications for COPD exacerbation. She is on Zithromax, Symbicort, and DuoNeb updrafts. She is also getting Solu-Medrol 60 mg q.6h. That can certainly be converted to oral prednisone today. ASSESSMENT: 1. Shortness of breath, most likely related to underlying chronic obstructive pulmonary disease exacerbation complicated by purulent tracheobronchitis and pleurisy. 2. Doubt significant congestive heart failure. 3. Obesity. 4. History of mild asthma. 5. History of congestive heart failure. 6. Status post AICD placement. 7. History of gastroesophageal reflux disease. 8. History of hypertension. 9. Seizure disorder. 10.History of sleep apnea syndrome. 11.History of kidney stones. 12.Prior episode of respiratory failure requiring intubation and mechanical ventilation. 13.History of peptic ulcer disease. 14.Neuropathy. PLAN: Overall, the patient is much improved. Clinically, she looks much better. She has been weaned off oxygen. She is still coughing. Producing small amounts of phlegm. Chest x-ray shows improvement. We will allow the primary to make a decision about discharge. She could go home either today or tomorrow. Follow up in the office would be important. I did alcoholic counselor her about the importance of smoking cessation. Additional recommendations and suggestions are forthcoming. OSMIN / KARINAN: [id number] /
[2019-05-09] MEDS ORDERED: CARVEDILOL 6.25 MG TAB PO STA (10:15)
[2019-05-09 11:41] LABS: Glucose,Whole Blood 184 mg/dL (75-99)
[2019-05-09 11:49] VITALS: BP 142/84; PULSE 91
--- NOTE | 2019-05-09 11:50 | P.PN ---
Subjective This is a pleasant 43-year-old female past medical history significant for COPD, hypertension, asthma, gastroesophageal reflux disease, obstructive sleep apnea and heart failure 20 years ago during per the patient. She denies history of coronary artery disease and does not follow a director of brand marketing for any reason. We have been asked to see her in consultation secondary to chest pain. She states since the beginning of April she has noticed increased swelling of her hands, legs, feet and abdomen. Shortness of breath and has r ecently started coughing. She states her cough is dry not really bringing up a significant amount of sputum. She is experiencing pressure in the midsternal region with radiation to the right anterior chest wall as well as the right axillary region this is associated with deep inspiration or cough. She had been waiting to get an with her primary care physician this coming week however when she woke up yesterday morning's symptoms had seemed to worsen so she came to the hospital for further evaluation. EKG reveals sinus tachycardia heart rate 112, left axis deviation intraventricular conduction delay, nonspecific ST changes. Chest x-ray reveals mild venous congestion and interstitial pneumonitis. CTA chest negative for pulmonary embolism, scattered areas of ground glass infiltrates noted and parabronchial cuffing. Laboratory data reviewed, WBC 12.5, hemoglobin 13.9, platelets 278, d-dimer 0.98, sodium 142, potassium 4.5, creatinine 0.79, cardiac enzymes negative 3, NT proBNP 953, LDL 88 and HDL 42. Daily cardiac medications include clonidine 0.3 mg at bedtime. Most recent stress test performed 2015 with a dobutamine stress echocardiogram was negative for stress-induced ischemia. 05/09/2019 Patient is seen and examined resting comfortably in bed. She continues to complain of shortness of breath. Chest pain has improved although she does feel it mildly at times when she coughs. Blood pressure 147/90 heart rate 85 afebrile maintaining oxygen saturation on room air. Laboratory data reviewed, sodium 140, potassium 4.4, creatinine 0.8. Echocardiogram obtained reveals mild ly impaired LV systolic function with ejection fraction 45-50%, grade 2 diastolic dysfunction, basal inferior LV wall motion hypokinesia, moderate mitral regurgitation and mild tricuspid regurgitation. Blood pressure 153/101 heart rate 104 afebrile maintaining oxygen saturation on nasal cannula GENERAL: This is a 43-year-old female in no apparent distress at the time of my examination. Morbidly obese. HEENT: Head is atraumatic, normocephalic. Pupils are equal, round. Sclerae anicteric. Conjunctivae are clear. Mucous membranes of the mouth are moist. Neck is supple. There is no jugular venous distention. No carotid bruit is heard. LUNGS: Expiratory wheezes, bibasilar rales and scattered rhonchi. No chest wall tenderness is noted on palpation or with deep breathing. HEART: Regular rate and rhythm without murmurs, rubs or gallops. S1 and S2 heard. ABDOMEN: Soft, nontender. Bowel sounds are heard. No organomegaly noted. EXTREMITIES: Trace bilateral lower extremity pitting edema and no calf tenderness noted. VASCULAR: Radial and dorsalis pedis pulses palpated, no evidence of clubbing. NEUROLOGIC: Patient is awake, alert and oriented x3. ASSESSMENT Acute exacerbation of heart failure, unknown type. Awaiting echocardiogram. Acute on chronic COPD Leukocytosis Chest pain, atypical. Pain is pleuritic and likely secondary to cough and COPD. Hypertension Asthma Chronic nicotine dependence PLAN Transition to PO diuretics. Discussed in detail the patient should undergo stress testing once her respiratory status has improved. Either in the hospital or as an outpatient. We will continue to follow make recommendations accordingly. Nurse Practitioner note has been reviewed, I agree with a documented findings and plan of care. Patient was seen and examined. Objective - Vital Signs Vital signs: Vital Signs Temp 97.5 F L 05/09/19 07:00 Pulse 85 05/09/19 11:40 Resp 18 05/09/19 08:00 BP 147/90 05/09/19 07:00 Pulse Ox 95 05/09/19 07:00 Intake & Output 05/08/19 05/09/19 05/09/19 18:59 06:59 18:59 Intake Total 956 240 Output Total 800 1150 Balance 156 -910 Intake: Oral 956 240 Output: Urine 800 1150 Other: Voiding Method Toilet Toilet Toilet # Voids 2 - Labs CBC & Chem 7: 05/07/19 12:52 05/09/19 06:26 Labs: Abnormal Lab Results - Last 24 Hours (Table) 05/08/19 05/08/19 05/09/19 Range/Units 16:36 19:40 06:26 BUN 18 H (7-17) mg/dL Glucose 256 H (74-99) mg/dL POC Glucose (mg/dL) 185 H 240 H (75-99) mg/dL 05/09/19 05/09/19 Range/Units 06:32 11:39 BUN (7-17) mg/dL Glucose (74-99) mg/dL POC Glucose (mg/dL) 245 H 184 H (75-99) mg/dL Microbiology - Last 24 Hours (Table) 05/07/19 17:00 Blood Culture - Preliminary Blood No Growth after 24 hours
--- NOTE | 2019-05-09 12:06 | P.DS ---
Providers Date of admission: 05/08/19 12:44 Expected date of discharge: 05/09/19 Attending physician: Bozena Maria MD Consults: 05/07/19 16:33 Consult Physician Routine Consulting Provider: Matheus Hubbard Consult Reason/Comments: cp, BBB Do you want consulting provider notified?: Yes 05/08/19 09:26 Consult Physician Routine Consulting Provider: Kwame Alcocer Consult Reason/Comments: sob Do you want consulting provider notified?: Yes Primary care physician: [facility] Course: This is a 43-year-old female patient of Dr. Harvey with past m edical history of COPD, diabetes mellitus type 2, diabetic neuropathy, hypertension, cardiomyopathy, obstructive sleep apnea without device, kidney stones, occipital neuritis, chronic headaches and seizures, hiatal hernia status post Cristy fundoplication, Chiari malformationstatus post craniotomy in 2012, tobacco use and dependence, daily marijuana use. Patient gives history that she had difficulty breathing that started yesterday morning. She also had some chest pain on the right side of her chest that went around to the lateral side. She has been having significant cough. She complains of edema all over her body. She states she has lost 77 pounds or 15 month. By using her bicycle but this summer she has gained back 20 pounds. Patient presented to [facility] emergency center for evaluation. She was afebrile, initial heart rate 120, blood pressure 122/79, pulse ox 99%. Blood pressure was up to 227/140. EKG was a sinus tachycardia, left axis deviation intraventricular conduction delay, nonspecific ST changes. WBC 12.5, hemoglobin 13.9, blood sugar 129, creatinine 0.76. Electrolytes within normal limits. Liver function tests within normal limits. D-dimer 0.98. Troponin 0.019, proBNP 953. Chest x-ray reports correlate for mild venous congestion otherwise consider interstitial pneumonitis. A CTA of the chest showed no pulmonary embolism. Scattered areas of groundglass infiltrate noted as well as peribronchial cuffing likely reflect acute inflammatory process. While in the emergency center, for her blood pressure she was given clonidine, Vasotec, labetalol, Nitropaste. Patient was started on antibiotics, DuoNeb treatments, consult cardiology for chest pain and bundle branch block and patient admitted to the observation unit. Blood cultures status received. Repeat chest x-ray shows improving changes of pulmonary edema. 05/09: Echocardiogram reveals EF of 45-50%, mild concentric left ventricular hypertrophy, moderate mitral regurgitation, mild tricuspid regurgitation. Cardiology is planning for stress testing due to abnormal echocardiogram which may be done as an outpatient. Dr. Martinez has cleared her for discharge. Patient states her chest pain is better today lung sounds are improved. Edema and abdominal distention is improved. Patient was found eating potato chips and we will 10. Cardiology has change IV Lasix to oral. Patient will be discharged home today in stable condition. Discharge diagnoses: 1. Acute diastolic heart failure with history of cardiomyopathy. 2. Acute exacerbation of COPD, acute tracheobronchitis. 3. Chest pain right-sided secondary to cough, musculoskeletal. 4. Hypertensive emergency status post IV labetalol, IV Vasotec, Nitro-Bid, Catapres in the ER. 5. Diabetes mellitus type 2. 6. Diabetic neuropathy. 7. Obstructive sleep apnea. 9. History of Chiari malformation status post craniotomy in 2012, stable 10. Chronic headaches and seizure disorder under the care of jeff Smith. 11. Hiatal hernia status post Cristy fundoplication. 12. Active tobacco use and dependence. nicotine patch. 13. Active marijuana use daily. Discharge plan: Home Impression and plan of care have been directed as dictated by the signing physician. Radha Garvey nurse practitioner acting as scribe for signing physician. Plan - Discharge Summary Discharge Rx Participant: No New Discharge Prescriptions: New Aspirin 81 mg PO DAILY chew Carvedilol [Coreg*] 12.5 mg PO BID-W/MEALS #60 tab Nicotine 7Mg/24Hr Patch [Habitrol] 1 patch TRANSDERM DAILY #30 patch Furosemide [Lasix] 40 mg PO BID@0900,1600 #60 tab predniSONE 0 mg PO DIRECTED #30 tab Budesonide-Formot 160-4.5 Mcg [Symbicort 160-4.5 Mcg Inhaler] 2 puff INHALATION RT-BID #1 inhaler Lisinopril [Zestril] 20 mg PO DAILY #30 tab Azithromycin [Zithromax] 500 mg PO DAILY@1600 #3 tab Continue Gabapentin [Neurontin] 400 mg PO TID cloNIDine HCL 0.3 mg PO HS Albuterol Inhaler [Ventolin Hfa Inhaler] 2 puff INHALATION RT-Q6H PRN PRN Reason: Shortness Of Breath Acetaminophen [Tylenol Extra Strength] 2,000 mg PO TID PRN PRN Reason: Pain glipiZIDE [Glucotrol] 5 mg PO HS Discharge Medication List Gabapentin [Neurontin] 400 mg PO TID 10/02/16 [History] Acetaminophen [Tylenol Extra Strength] 2,000 mg PO TID PRN 05/07/19 [History] Albuterol Inhaler [Ventolin Hfa Inhaler] 2 puff INHALATION RT-Q6H PRN 05/07/19 [History] cloNIDine HCL 0.3 mg PO HS 05/07/19 [History] glipiZIDE [Glucotrol] 5 mg PO HS 05/07/19 [History] Aspirin 81 mg PO DAILY chew 05/09/19 [Rx] Azithromycin [Zithromax] 500 mg PO DAILY@1600 #3 tab 05/09/19 [Rx] Budesonide-Formot 160-4.5 Mcg [Symbicort 160-4.5 Mcg Inhaler] 2 puff INHALATION RT-BID #1 inhaler 05/09/19 [Rx] Carvedilol [Coreg*] 12.5 mg PO BID-W/MEALS #60 tab 05/09/19 [Rx] Furosemide [Lasix] 40 mg PO BID@0900,1600 #60 tab 05/09/19 [Rx] Lisinopril [Zestril] 20 mg PO DAILY #30 tab 05/09/19 [Rx] Nicotine 7Mg/24Hr Patch [Habitrol] 1 patch TRANSDERM DAILY #30 patch 05/09/19 [R x] predniSONE 0 mg PO DIRECTED #30 tab 05/09/19 [Rx] Follow up Appointment(s)/Referral(s): James Harvey DO [Primary Care Provider] - 1 Week Elmo Rivera MD [STAFF PHYSICIAN] - 2 Weeks Discharge Disposition: HOME SELF-CARE
[2019-05-09] MEDS ORDERED: methylPREDNISolone SOD SUCCI 40 MG/ML 1 ML VIAL IV SCH (16:00)
[2019-05-09] MEDS ORDERED: FUROSEMIDE 40 MG TAB PO SCH (16:00)
[2019-05-09] MEDS ORDERED: CARVEDILOL 12.5 MG TAB PO SCH (17:30)
[2019-05-10 10:42] LABS: Hemoglobin A1C 6.5 % (4.0-6.0)
== END 2019-05-09 13:20 | disposition home or self-care (01) | DRG 292 ==
LOC: SUPCPDRO 12:29 → EC 12:29 → 1SOBS 16:33 → OBSVTOIN 05-08 12:44
PROVIDERS: ADMIT Internal Medicine; ATTEND Internal Medicine
DX: I11.0 Hypertensive heart disease with heart failure (principal); J44.0 Chronic obstructive pulmonary disease with (acute) lower respiratory infection; J44.1 Chronic obstructive pulmonary disease with (acute) exacerbation; Z68.41 Body mass index [BMI] 40.0-44.9, adult; I16.1 Hypertensive emergency; I50.33 Acute on chronic diastolic (congestive) heart failure; J20.9 Acute bronchitis, unspecified; E11.40 Type 2 diabetes mellitus with diabetic neuropathy, unspecified; E66.01 Morbid (severe) obesity due to excess calories; F17.200 Nicotine dependence, unspecified, uncomplicated; F32.9 Major depressive disorder, single episode, unspecified; F41.9 Anxiety disorder, unspecified; G40.909 Epilepsy, unspecified, not intractable, without status epilepticus; I08.1 Rheumatic disorders of both mitral and tricuspid valves; G47.33 Obstructive sleep apnea (adult) (pediatric); I45.4 Nonspecific intraventricular block; J84.89 Other specified interstitial pulmonary diseases; K21.9 Gastro-esophageal reflux disease without esophagitis; R51 Headache; K44.9 Diaphragmatic hernia without obstruction or gangrene; Z79.82 Long term (current) use of aspirin; Z79.84 Long term (current) use of oral hypoglycemic drugs; Z79.899 Other long term (current) drug therapy; Z80.0 Family history of malignant neoplasm of digestive organs; Z80.1 Family history of malignant neoplasm of trachea, bronchus and lung; Z82.49 Family history of ischemic heart disease and other diseases of the circulatory system; Z83.3 Family history of diabetes mellitus; Z87.01 Personal history of pneumonia (recurrent); Z87.11 Personal history of peptic ulcer disease; Z87.442 Personal history of urinary calculi; Z95.810 Presence of automatic (implantable) cardiac defibrillator
CPT/HCPCS: 36415; 71046; 71275; 80048; 80053; 80061; 83036; 83880; 84484; 85025; 85379; 85610; 85730; 87040; 93005; 93306; 94640; 94760; 96374; 96375; 99285

== ENCOUNTER 2019-07-12 10:29 | Emergency (ER) | payer OTHER ==
[2019-07-12 10:35] VITALS: TEMP 98.2
--- NOTE | 2019-07-12 11:28 | ED ---
General Adult HPI - General Chief complaint: Shortness of Breath Stated complaint: ROSALBA Time Seen by Provider: 07/12/19 10:47 Source: patient, RN notes reviewed Mode of arrival: ambulatory Limitations: no limitations - History of Present Illness Initial comments: 43-year-old female with a past medical history of asthma, heart failure, COPD, GERD, hypertension, pneumonia presents to the emergency department for a chief complaint of shortness of breath. Patient states she has had shortness of breath with chest pressure for 2 months. States that she has also had a cough which was nonproductive for the past 2 months. States she was seen here at that time and diagnosed with heart failure COPD and pneumonia. States that today she had an appointment with her primary care doctor and felt worse than normal so they were sent to the ER. States she is supposed to take Lasix twice a day but has not taken this medication in the past 4 days because it causes her diarrhea.Patient has no other complaints at this time including abdominal pain, nausea or vomiting, headache, or visual changes. - Related Data Home Medications Medication Instructions Recorded Confirmed Albuterol Inhaler [Ventolin Hfa 2 puff INHALATION RT-Q6H PRN 05/07/19 07/12/19 Inhaler] cloNIDine HCL 0.3 mg PO BID 05/07/19 07/12/19 Albuterol Nebulized [Ventolin 2.5 mg INHALATION RT-Q4H PRN 07/12/19 07/12/19 Nebulized] [id number] 1 tab PO Q4HR PRN 07/12/19 07/12/19 [Excedrin] Fluticasone/Salmeterol 1 puff INHALATION RT-BID 07/12/19 07/12/19 [Fluticasone-Salmeterol 113-14] Lisinopril 40 mg PO DAILY 07/12/19 07/12/19 Potassium Chloride ER [K-Dur 20] 20 meq PO BID 07/12/19 07/12/19 Verapamil HCl [Verapamil ER] 120 mg PO BID 07/12/19 07/12/19 Previous Rx's Medication Instructions Recorded Furosemide [Lasix] 40 mg PO BID@0900,1600 #60 tab 05/09/19 predniSONE 50 mg PO DAILY #5 tablet 07/12/19 Allergies Allergy/AdvReac Type Severity Reaction Status Date / Time pregabalin [From Lyrica] Allergy Unknown Unknown Verified 07/12/19 11:13 hydromorphone HCl Allergy headache Verified 07/12/19 11:13 [From Dilaudid] BERRIES Allergy Anaphylaxis Uncoded 05/07/19 22:49 Review of Systems ROS Statement: Those systems with pertinent positive or pertinent negative responses have been documented in the HPI. ROS Other: All systems not noted in ROS Statement are negative. Past Medical History Past Medical History: Asthma, Heart Failure, COPD, GERD/Reflux, Hypertension, Renal Disease, Seizure Disorder, Sleep Apnea/CPAP/BIPAP Additional Past Medical History / Comment(s): nephrolithiasis, HX pneumonia /vented-2011, peptic ulcers, Sleep apnea-no device, bilateral occipital neuritis, headaches, vertigo, neuropathy;"legs give out at times". had episode of CHF >10 yrs. ago-has had no problems since. PAST PEOPLESOFT HISTORY: She has no history of STDs. divertiulitis History of Any Multi-Drug Resistant Organisms: None Reported Past Surgical History: Cholecystectomy, Hernia Repair Additional Past Surgical History / Comment(s): brain surgery 2012 for seizures & headaches, Right ovary/tube removed 2009, D&C, Picc line insertion since removed, Kidney stone surgically removed & lithotripsy., Laproscopic Cristy Fu ndoplasty. Colonoscopy 2018(2nd). Past Anesthesia/Blood Transfusion Reactions: No Reported Reaction, Motion Sickness Past Psychological History: Anxiety, Depression Smoking Status: Heavy tobacco smoker Past Alcohol Use History: None Reported Past Drug Use History: Marijuana - Past Family History Father Family Medical History: AFIB, Diabetes Mellitus, Hypertension Additional Family Medical History / Comment(s): Father is alive at age 67 with history of atrial fibrillation, diabetes, hypertension, pacemaker. Mother Family Medical History: Cancer Additional Family Medical History / Comment(s): Mother of pancreatic cancer at the age of 58yrs. Maternal cousin had pancreatic cancer. Maternal uncle had lung cancer. Sister(s) Family Medical History: AICD/Pacemaker Additional Family Medical History / Comment(s): the patient has one sister with AICD. Second sister has no major medical problems. Patient's 1 brother that is healthy. Patient has one son and one daughter with no major medical problems. General Exam Limitations: no limitations General appearance: alert, in no apparent distress Head exam: Present: atraumatic, normocephalic, normal inspection Eye exam: Present: normal appearance, PERRL, EOMI. Absent: scleral icterus, conjunctival injection, periorbital swelling ENT exam: Present: normal exam, mucous membranes moist Neck exam: Present: normal inspection, full ROM. Absent: tenderness, meningismus, lymphadenopathy Respiratory exam: Present: normal lung sounds bilaterally. Absent: respiratory distress, wheezes, rales, rhonchi, stridor Cardiovascular Exam: Present: regular rate, normal rhythm, normal heart sounds. Absent: systolic murmur, diastolic murmur, rubs, gallop, clicks GI/Abdominal exam: Present: soft, normal bowel sounds. Absent: distended, tenderness, guarding, rebound, rigid Neurological exam: Present: alert Course Vital Signs 07/12/19 07/12/19 07/12/19 10:32 12:24 12:33 Temperature 98.2 F Pulse Rate 97 100 96 Respiratory 17 Rate Blood Pressure 170/106 O2 Sat by Pulse 97 Oximetry 07/12/19 07/12/19 12:46 13:09 Temperature Pulse Rate 76 Respiratory 22 20 Rate Blood Pressure 156/102 O2 Sat by Pulse 96 Oximetry - Reevaluation(s) Reevaluation #1: 07/12/19 11:58 Patient was admitted 2 months ago for this complaint and was diagnosed with acute diastolic heart failure with history of cardiomyopathy, COPD exacerbation. Patient had an echo on 05/09/2019 that revealed an ejection fraction of 45-50% and stress test was planning to be done outpatient. EKG Findings - EKG Comments: EKG Findings:: Normal sinus rhythm, ventricular rate 87, IN interval 162, QTC 5:15, left bundle-branch block, compared to EKG from 05/07/2019 which appears s imilar. Medical Decision Making - Medical Decision Making 43-year-old female presents to the emergency department for Fran of breath. This has been ongoing for 2 months. States that her cough worsened today so she came into the ER after she saw her primary care doctor. Patient does not take her Lasix because it causes her diarrhea. She was seen here 2 months ago for this complaint and had a negative CTA of the chest. She had an echo showing 45- 50% ejection fraction. Exam is unremarkable side for lung sounds being slightly diminished. CBC CMP unremarkable. Troponin is negative. BNP is only 615. Chest x-ray shows improvement of interstitial edema compared to the last exam. She was given DuoNeb and is currently better. Vitals are stable throughout patient's stay. Patient is mildly hypertensive however has a history of this and is denying any other symptoms. Case was reviewed with Dr. Rubin, at this time he feel patient can follow up outpatient and return if she has any worsening symptoms. She will be treated for a COPD exacerbation and given steroids. Also discussed to follow-up with her doctor and continue to take Lasix. - Lab Data Result diagrams: 07/12/19 12:00 07/12/19 12:00 Lab Results 07/12/19 07/12/19 07/12/19 Range/Units 12:00 12:00 12:00 WBC 10.6 (3.8-10.6) k/uL RBC 4.56 (3.80-5.40) m/uL Hgb 13.2 (11.4-16.0) gm/dL Hct 40.3 (34.0-46.0) % MCV 88.3 (80.0-100.0) fL MCH 29.0 (25.0-35.0) pg MCHC 32.8 (31.0-37.0) g/dL RDW 18.2 H (11.5-15.5) % Plt Count 264 (150-450) k/uL Neutrophils % 65 % Lymphocytes % 26 % Monocytes % 3 % Eosinophils % 4 % Basophils % 0 % Neutrophils # 6.9 (1.3-7.7) k/uL Lymphocytes # 2.7 (1.0-4.8) k/uL Monocytes # 0.4 (0-1.0) k/uL Eosinophils # 0.4 (0-0.7) k/uL Basophils # 0.0 (0-0.2) k/uL Anisocytosis Slight PT (9.0-12.0) sec INR (<1.2) APTT (22.0-30.0) sec Sodium 139 (137-145) mmol/L Potassium 4.6 (3.5-5.1) mmol/L Chloride 107 (98-107) mmol/L Carbon Dioxide 22 (22-30) mmol/L Anion Gap 10 mmol/L BUN 14 (7-17) mg/dL Creatinine 0.67 (0.52-1.04) mg/dL Est GFR (CKD-EPI)AfAm >90 (>60 ml/min/1.73 sqM) Est GFR (CKD-EPI)NonAf >90 (>60 ml/min/1.73 sqM) Glucose 124 H (74-99) mg/dL Calcium 9.2 (8.4-10.2) mg/dL Magnesium 1.7 (1.6-2.3) mg/dL Total Bilirubin 0.5 (0.2-1.3) mg/dL AST 33 (14-36) U/L ALT 40 (9-52) U/L Alkaline Phosphatase 66 (38-126) U/L Troponin I (0.000-0.034) ng/mL NT-Pro-B Natriuret Pep 615 pg/mL Total Protein 6.8 (6.3-8.2) g/dL Albumin 3.9 (3.5-5.0) g/dL Urine Color Urine Appearance (Clear) Urine pH (5.0-8.0) Ur Specific [place] (1.001-1.035) Urine Protein (Negative) Urine Glucose (UA) (Negative) Urine Ketones (Negative) Urine Blood (Negative) Urine Nitrite (Negative) Urine Bilirubin (Negative) Urine Urobilinogen (<2.0) mg/dL Ur Leukocyte Esterase (Negative) Urine RBC (0-5) /hpf Urine WBC (0-5) /hpf Ur Squamous Epith Cells (0-4) /hpf Urine Mucus (None) /hpf 07/12/19 07/12/19 07/12/19 Range/Units 12:00 12:00 12:49 WBC (3.8-10.6) k/uL RBC (3.80-5.40) m/uL Hgb (11.4-16.0) gm/dL Hct (34.0-46.0) % MCV (80.0-100.0) fL MCH (25.0-35.0) pg MCHC (31.0-37.0) g/dL RDW (11.5-15.5) % Plt Count (150-450) k/uL Neutrophils % % Lymphocytes % % Monocytes % % Eosinophils % % Basophils % % Neutrophils # (1.3-7.7) k/uL Lymphocytes # (1.0-4.8) k/uL Monocytes # (0-1.0) k/uL Eosinophils # (0-0.7) k/uL Basophils # (0-0.2) k/uL Anisocytosis PT 10.5 (9.0-12.0) sec INR 1.0 (<1.2) APTT 24.8 (22.0-30.0) sec Sodium (137-145) mmol/L Potassium (3.5-5.1) mmol/L Chloride (98-107) mmol/L Carbon Dioxide (22-30) mmol/L Anion Gap mmol/L BUN (7-17) mg/dL Creatinine (0.52-1.04) mg/dL Est GFR (CKD-EPI)AfAm (>60 ml/min/1.73 sqM) Est GFR (CKD-EPI)NonAf (>60 ml/min/1.73 sqM) Glucose (74-99) mg/dL Calcium (8.4-10.2) mg/dL Magnesium (1.6-2.3) mg/dL Total Bilirubin (0.2-1.3) mg/dL AST (14-36) U/L ALT (9-52) U/L Alkaline Phosphatase (38-126) U/L Troponin I <0.012 (0.000-0.034) ng/mL NT-Pro-B Natriuret Pep pg/mL Total Protein (6.3-8.2) g/dL Albumin (3.5-5.0) g/dL Urine Color Yellow Urine Appearance Cloudy H (Clear) Urine pH 5.5 (5.0-8.0) Ur Specific [place] 1.014 (1.001-1.035) Urine Protein 1+ H (Negative) Urine Glucose (UA) Negative (Negative) Urine Ketones Negative (Negative) Urine Blood Negative (Negative) Urine Nitrite Negative (Negative) Urine Bilirubin Negative (Negative) Urine Urobilinogen <2.0 (<2.0) mg/dL Ur Leukocyte Esterase Negative (Negative) Urine RBC <1 (0-5) /hpf Urine WBC 1 (0-5) /hpf Ur Squamous Epith Cells 5 H (0-4) /hpf Urine Mucus Rare H (None) /hpf Disposition Clinical Impression: Shortness of breath, Interstitial edema, COPD exacerbation Disposition: HOME SELF-CARE Condition: Good Instructions (If sedation given, give patient instructions): Shortness of Breath (ED), COPD (Chronic Obstructive Pulmonary Disease) (ED) Additional Instructions: Please take steroid as directed. Take your Lasix as directed. Follow-up with primary care in 1-2 days. If you have worsening symptoms return to the ER. Prescriptions: predniSONE 50 mg PO DAILY #5 tablet Is patient prescribed a controlled substance at d/c from ED?: No Referrals: James Harvey DO [Primary Care Provider] - 1-2 days Time of Disposition: 13:34
[2019-07-12] MEDS ORDERED: IPRATROPIUM-ALBUTEROL 3 ML NEB INHALATION STA (11:54)
--- NOTE | 2019-07-12 12:19 | XR ---
EXAMINATION TYPE: XR chest 2V DATE OF EXAM: 07/12/2019 COMPARISON: Prior chest x-ray 05/08/2019 HISTORY: Chest pain TECHNIQUE: Frontal and lateral views of the chest are obtained. FINDINGS: Suspect there is some improvement in the interstitium as compared to prior exam. No other significant interval change. IMPRESSION: Some improvement in interstitial edema as compared to prior, persistent cardiomegaly.
[2019-07-12] MEDS ORDERED: FUROSEMIDE 10 MG/ML 4 ML VIAL IV STA (12:22)
[2019-07-12 12:34] LABS: Anisocytosis Slight; Basophils % (A) 0 %; Eosinophils # (A) 0.4 k/uL (0-0.7); Eosinophils % (A) 4 %; HCT 40.3 % (34.0-46.0); HGB 13.2 gm/dL (11.4-16.0); Lymphocytes # (A) 2.7 k/uL (1.0-4.8); Lymphocytes % (A) 26 %; MCHC 32.8 g/dL (31.0-37.0); MCV 88.3 fL (80.0-100.0); Mean Platelet Volume 6.8; Monocytes # (A) 0.4 k/uL (0-1.0); Monocytes % (A) 3 %; Neutrophils # (A) 6.9 k/uL (1.3-7.7); Neutrophils % (A) 65 %; Platelet Count 264 k/uL (150-450); RBC 4.56 m/uL (3.80-5.40); RDW 18.2 % (11.5-15.5); WBC 10.6 k/uL (3.8-10.6)
[2019-07-12 12:45] LABS: ALT 40 U/L (9-52); AST 33 U/L (14-36); African American GFR (CKD) >90 (>60 ml/min/1.73 sqM); Albumin 3.9 g/dL (3.5-5.0); Alkaline Phosphatase 66 U/L (38-126); Anion Gap 10 mmol/L; Blood Urea Nitrogen 14 mg/dL (7-17); Calcium 9.2 mg/dL (8.4-10.2); Carbon Dioxide 22 mmol/L (22-30); Chloride 107 mmol/L (98-107); Glucose 124 mg/dL (74-99); Magnesium 1.7 mg/dL (1.6-2.3); Potassium 4.6 mmol/L (3.5-5.1); Sodium 139 mmol/L (137-145); Total Bilirubin 0.5 mg/dL (0.2-1.3); Total Protein 6.8 g/dL (6.3-8.2)
[2019-07-12 12:49] LABS: Partial Thromboplastin Time 24.8 sec (22.0-30.0); Prothrombin Time 10.5 sec (9.0-12.0)
[2019-07-12 13:04] LABS: Appearance,Urine Cloudy (Clear); Bilirubin,Urine Negative (Negative); Blood,Urine Negative (Negative); Color,Urine Yellow; Glucose,Urine (UA) Negative (Negative); Ketones,Urine Negative (Negative); Leukocyte Esterase,Urine Negative (Negative); Mucus,Urine Rare /hpf; Nitrite,Urine Negative (Negative); PH, Urine 5.5 (5.0-8.0); Protein,Urine 1+ (Negative); RBC,Urine <1 /hpf (0-5); Specific Gravity,Urine 1.014 (1.001-1.035); Squamous Epithelial Cell,Urine 5 /hpf (0-4); Urobilinogen,Urine <2.0 mg/dL (<2.0); WBC,Urine 1 /hpf (0-5)
[2019-07-12 13:12] VITALS: BP 156/102; PULSE 76; RESP 20
== END 2019-07-12 13:53 | disposition home or self-care (01) ==
LOC: EC 10:29
DX: J44.1 Chronic obstructive pulmonary disease with (acute) exacerbation (principal); J81.1 Chronic pulmonary edema; I11.0 Hypertensive heart disease with heart failure; I50.9 Heart failure, unspecified; F17.200 Nicotine dependence, unspecified, uncomplicated; G47.30 Sleep apnea, unspecified; Z99.89 Dependence on other enabling machines and devices; Z82.49 Family history of ischemic heart disease and other diseases of the circulatory system; Z79.51 Long term (current) use of inhaled steroids; Z79.899 Other long term (current) drug therapy; Z88.8 Allergy status to other drugs, medicaments and biological substances; Z88.5 Allergy status to narcotic agent; Z91.018 Allergy to other foods
CPT/HCPCS: 36415; 94640; 93005; 83880; 80053; 83735; 84484; 85025; 85610; 85730; 81001; 71046; 99285; 96374; J1940

== ENCOUNTER 2019-10-28 06:55 | Day surgery (SDC) | payer OTHER ==
[2019-10-25 15:12] VITALS: BMI 47.4
[~2019-10-28 06:55] MED LIST changes: -PROPOFOL 10 MG/ML 20 ML VIAL IV ONE; -fentaNYL (PF) 50 MCG/ML 2 ML AMP ONE
[2019-10-28] MEDS ORDERED: LACTATED RINGERS 1,000 ML IV ONE (07:12)
[2019-10-28 07:33] VITALS: TEMP 97.8
[2019-10-28] MEDS ORDERED: ESMOLOL 100 MG/10 ML VIAL ONE (07:47)
[2019-10-28] MEDS ORDERED: LIDOCAINE 1% INJ 10MG/ML (20 ML MDV) ONE (07:47)
[2019-10-28] MEDS ORDERED: PROPOFOL 10 MG/ML 20 ML VIAL IV ONE (07:47)
--- NOTE | 2019-10-28 07:53 | P.GSHP ---
History of Present Illness H&P Date: 10/28/19 Chief Complaint: GI bleed This 44-year-old female with history of GI bleed. Patient has had previous colonoscopies. She has a history of diverticulosis. Past Medical History Past Medical History: Heart Failure, COPD, GERD/Reflux, Hypertension, Seizure Disorder, Sleep Apnea/CPAP/BIPAP Additional Past Medical History / Comment(s): mult kidney stones, HX pneumonia /vented-2011, peptic ulcers, Sleep apnea-no device currently, bilateral occipital neuritis, headaches, vertigo, neuropathy;"legs give out at times". States has "convulsions" "I get numb,fall asleep,and shake, but I'm aware of my surroundings" hx of diverticulitis and colon polyps, hemmorhoids History of Any Multi-Drug Resistant Organisms: None Reported Past Surgical History: Cholecystectomy, Hernia Repair Additional Past Surgical History / Comment(s): brain surgery 2012 for seizures & headaches, Right ovary/tube removed 2009, D&C, Picc line insertion since remov ed, Kidney stone surgically removed & lithotripsy., Laproscopic Cristy Fundoplasty. Colonoscopy, Past Anesthesia/Blood Transfusion Reactions: No Reported Reaction, Motion Sic kness Smoking Status: Current every day smoker - Past Family History Father Family Medical History: AFIB, Diabetes Mellitus, Hypertension Additional Family Medical History / Comment(s): Father is alive at age 67 with history of atrial fibrillation, diabetes, hypertension, pacemaker. Mother Family Medical History: Cancer Additional Family Medical History / Comment(s): Mother of pancreatic cancer at the age of 58yrs. Maternal cousin had pancreatic cancer. Maternal uncle had lung cancer. Sister(s) Family Medical History: AICD/Pacemaker Additional Family Medical History / Comment(s): the patient has one sister with AICD. Second sister has no major medical problems. Patient's 1 brother that is healthy. Patient has one son and one daughter with no major medical problems. Medications and Allergies Home Medications Medication Instructions Recorded Confirmed Type Fluticasone/Salmeterol 1 puff INHALATION RT-BID 07/12/19 10/28/19 History [Fluticasone-Salmeterol 113-14] Verapamil HCl [Verapamil ER] 120 mg PO BID 07/12/19 10/28/19 History Acetaminophen [Tylenol Extra 1,000 mg PO Q4H 10/25/19 10/28/19 History Strength] Carvedilol 12.5 mg PO BID 10/25/19 10/28/19 History Cromolyn Sodium 20 mg IH QID PRN 10/25/19 10/28/19 History Ipratropium Nebulized [Atrovent 0.5 mg INHALATION Q6HR 10/25/19 10/28/19 History Nebulized 0.2 MG/ML] Spironolactone 100 mg PO QAM 10/25/19 10/28/19 History Allergies Allergy/AdvReac Type Severity Reaction Status Date / Time pregabalin [From Lyrica] Allergy Unknown Unknown Verified 10/28/19 07:17 hydromorphone HCl Allergy headache Verified 10/28/19 07:17 [From Dilaudid] BERRIES Allergy Anaphylaxis Uncoded 10/28/19 07:17 Surgical - Exam Vital Signs Temp Pulse Resp BP Pulse Ox 97.8 F 102 H 14 171/101 98 10/28/19 07:23 10/28/19 07:23 10/28/19 07:23 10/28/19 07:23 10/28/19 07:23 - General well developed, well nourished, no distress - Eyes PERRL - ENT normal pinna - Neck no masses - Respiratory normal expansion - Cardiovascular Rhythm: regular - Abdomen Abdomen: soft, non tender Assessment and Plan Assessment: GI bleed. We'll perform colonoscopy.
--- NOTE | 2019-10-28 08:07 | P.OP ---
Date of Procedure: 10/28/19 Preoperative Diagnosis: GI bleed Postoperative Diagnosis: Diverticulosis Rectal polyp Procedure(s) Performed: Colonoscopy Anesthesia: MAC Surgeon: Berny Barclay Pathology: other (Rectal polyps) Condition: stable Disposition: PACU Description of Procedure: The patient's placed on the endoscopy table in the lateral position. She received IV sedation. Digital rectal exam was performed which revealed external hemorrhoids. The flexible colonoscope was then placed patient anus passed rotator colon. The ileocecal valve sutures. The cecum, ascending and transverse colon appeared normal. In the descending; there is mild diverticular changes. There is known to diverticulitis. Scope was then brought back the rectum and small sessile polyp was seen. This removed forcep. Scope was withdrawn and close to the anus was noted peduncular polyp and this removed with snare. Scope was withdrawn for patient. There is no evidence of any GI bleeding. Presuming that her bleeding was from her hemorrhoids.
[2019-10-28] MEDS ORDERED: VERAPAMIL SR 120 MG TABLET.ER PO STA (08:29)
[2019-10-28] MEDS ORDERED: CARVEDILOL 12.5 MG TAB PO STA (08:30)
[2019-10-28 09:16] VITALS: BP 172/108; PULSE 102; RESP 18
== END 2019-10-28 09:37 | disposition home or self-care (01) ==
LOC: ORWHC2ENDO 06:55
PROVIDERS: ATTEND Surgery
DX: K62.1 Rectal polyp (principal); K57.31 Diverticulosis of large intestine without perforation or abscess with bleeding; K64.4 Residual hemorrhoidal skin tags; I11.0 Hypertensive heart disease with heart failure; I50.9 Heart failure, unspecified; J44.9 Chronic obstructive pulmonary disease, unspecified; K21.9 Gastro-esophageal reflux disease without esophagitis; G47.33 Obstructive sleep apnea (adult) (pediatric); G58.8 Other specified mononeuropathies; G62.9 Polyneuropathy, unspecified; F17.200 Nicotine dependence, unspecified, uncomplicated; Z86.69 Personal history of other diseases of the nervous system and sense organs; Z87.442 Personal history of urinary calculi; Z87.01 Personal history of pneumonia (recurrent); Z87.11 Personal history of peptic ulcer disease; Z86.010 Personal history of colon polyps; Z90.49 Acquired absence of other specified parts of digestive tract; Z98.890 Other specified postprocedural states; Z90.79 Acquired absence of other genital organ(s); Z90.721 Acquired absence of ovaries, unilateral; Z87.898 Personal history of other specified conditions; Z79.51 Long term (current) use of inhaled steroids; Z79.899 Other long term (current) drug therapy; Z88.8 Allergy status to other drugs, medicaments and biological substances; Z88.5 Allergy status to narcotic agent; Z91.018 Allergy to other foods; Z82.49 Family history of ischemic heart disease and other diseases of the circulatory system; Z83.3 Family history of diabetes mellitus; Z80.0 Family history of malignant neoplasm of digestive organs; Z80.1 Family history of malignant neoplasm of trachea, bronchus and lung
CPT/HCPCS: 81025; 88305; 45388; J2001; J2704; 45380; 45385

== ENCOUNTER 2019-11-15 17:56 | Inpatient (IN) | payer OTHER ==
[2019-11-15] MEDS ORDERED: ALBUTEROL NEBULIZED 2.5 MG/3 ML INHALATION STA (18:25)
[2019-11-15] MEDS ORDERED: methylPREDNISolone SOD SUCCI 125 MG/2 ML VIAL IV STA (18:25)
--- NOTE | 2019-11-15 18:27 | ED ---
General Adult HPI - General Chief complaint: Shortness of Breath Stated complaint: SOB Time Seen by Provider: 11/15/19 18:17 Source: patient, RN notes reviewed, old records reviewed Mode of arrival: wheelchair Limitations: no limitations - History of Present Illness Initial comments: 44-year-old female history of COPD and congestive heart failure presenting with 6 months of worsening dyspnea. Patient states she took Lasix today in order to improve her symptoms, she states she did not have significant urine output after taking her Lasix. She denies fever. She denies central chest pain but states that she has some chest tightness which is also been present for several months. She reports bilateral lower extremity pain and swelling as well as weight gain. She is a current smoker History of COPD. She reports a minimally productive cough, no fevers. No abdominal pain. Patient is also complaining of suicidal ideation, no specific plan, no suicide attempt. - Related Data Home Medications Medication Instructions Recorded Confirmed Fluticasone/Salmeterol 1 puff INHALATION RT-BID 07/12/19 10/28/19 [Fluticasone-Salmeterol 113-14] Verapamil HCl [Verapamil ER] 120 mg PO BID 07/12/19 10/28/19 Acetaminophen [Tylenol Extra 1,000 mg PO Q4H 10/25/19 10/28/19 Strength] Carvedilol 12.5 mg PO BID 10/25/19 10/28/19 Cromolyn Sodium 20 mg IH QID PRN 10/25/19 10/28/19 Ipratropium Nebulized [Atrovent 0.5 mg INHALATION Q6HR 10/25/19 10/28/19 Nebulized 0.2 MG/ML] Spironolactone 100 mg PO QAM 10/25/19 10/28/19 Allergies Allergy/AdvReac Type Severity Reaction Status Date / Time pregabalin [From Lyrica] Allergy Unknown Unknown Verified 10/28/19 07:17 acetylcysteine Allergy Swelling Verified 11/15/19 18:10 hydromorphone HCl Allergy headache Verified 10/28/19 07:17 [From Dilaudid] BERRIES Allergy Anaphylaxis Uncoded 10/28/19 07:17 Review of Systems ROS Statement: Those systems with pertinent positive or pertinent negative responses have been documented in the HPI. ROS Other: All systems not noted in ROS Statement are negative. Past Medical History Past Medical History: Heart Failure, COPD, GERD/Reflux, Hypertension, Seizure Disorder, Sleep Apnea/CPAP/BIPAP Additional Past Medical History / Comment(s): mult kidney stones, HX pneumonia /vented-2011, peptic ulcers, Sleep apnea-no device currently, bilateral occipital neuritis, headaches, vertigo, neuropathy;"legs give out at times". States has "convulsions" "I get numb,fall asleep,and shake, but I'm aware of my surroundings" hx of diverticulitis and colon polyps, hemmorhoids History of Any Multi-Drug Resistant Organisms: None Reported Past Surgical History: Cholecystectomy, Hernia Repair Additional Past Surgical History / Comment(s): brain surgery 2012 for seizures & headaches, Right ovary/tube removed 2009, D&C, Picc line insertion since removed, Kidney stone surgically removed & lithotripsy., Laproscopic Cristy Fundoplasty. Colonoscopy, Past Anesthesia/Blood Transfusion Reactions: No Reported Reaction, Motion Sickness Past Psychological History: No Psychological Hx Reported Smoking Status: Current every day smoker Past Alcohol Use History: Rare Past Drug Use History: Marijuana - Past Family History Father Family Medical History: AFIB, Diabetes Mellitus, Hypertension Additional Family Medical History / Comment(s): Father is alive at age 67 with history of atrial fibrillation, diabetes, hypertension, pacemaker. Mother Family Medical History: Cancer Additional Family Medical History / Comment(s): Mother of pancreatic cancer at the age of 58yrs. Maternal cousin had pancreatic cancer. Maternal uncle had lung cancer. Sister(s) Family Medical History: AICD/Pacemaker Additional Family Medical History / Comment(s): the patient has one sister with AICD. Second sister has no major medical problems. Patient's 1 brother that is healthy. Patient has one son and one daughter with no major medical problems. General Exam Limitations: no limitations General appearance: alert, in distress Head exam: Present: atraumatic, normocephalic Eye exam: Present: normal appearance, PERRL ENT exam: Present: normal exam Neck exam: Present: normal inspection. Absent: tenderness, meningismus Respiratory exam: Present: respiratory distress, rales, decreased breath sounds. Absent: wheezes Cardiovascular Exam: Present: regular rate, normal rhythm GI/Abdominal exam: Present: soft. Absent: distended, tenderness, guarding Extremities exam: Present: normal capillary refill, pedal edema Neurological exam: Present: alert, oriented X3, CN II-XII intact. Absent: motor sensory deficit Psychiatric exam: Present: anxious, suicidal ideation Skin exam: Present: warm, dry, intact. Absent: cyanosis, diaphoretic Course Vital Signs 11/15/19 11/15/19 11/15/19 18:06 18:25 19:09 Temperature 97.8 F Pulse Rate 91 88 Respiratory 20 20 Rate Blood Pressure 131/88 O2 Sat by Pulse 96 95 Oximetry 11/15/19 11/15/19 19:20 19:46 Temperature Pulse Rate 88 88 Respiratory Rate Blood Pressure O2 Sat by Pulse Oximetry Medical Decision Making - Medical Decision Making 44-year-old female with worsening dyspnea, history of congestive heart failure and COPD and is currently smoking. Patient has bilateral rhonchi, and rales with moderate respiratory distress. Chest x-ray consistent with CHF. She has normal CBC, CMP is within normal limits she has an elevated BNP at 3000. She's given aspirin, Lasix as well as treatment for COPD and reactive airway. She will be admitted for diuresis, echo. Case is discussed with Sheet will admit this patient. - Lab Data Result diagrams: 11/15/19 18:35 11/15/19 18:35 Lab Results 11/15/19 11/15/19 11/15/19 Range/Units 18:35 18:35 18:35 WBC 11.0 H (3.8-10.6) k/uL RBC 5.17 (3.80-5.40) m/uL Hgb 13.3 (11.4-16.0) gm/dL Hct 44.3 (34.0-46.0) % MCV 85.6 (80.0-100.0) fL MCH 25.8 (25.0-35.0) pg MCHC 30.1 L (31.0-37.0) g/dL RDW 15.8 H (11.5-15.5) % Plt Count 293 (150-450) k/uL Neutrophils % 72 % Lymphocytes % 19 % Monocytes % 5 % Eosinophils % 3 % Basophils % 1 % Neutrophils # 7.9 H (1.3-7.7) k/uL Lymphocytes # 2.1 (1.0-4.8) k/uL Monocytes # 0.5 (0-1.0) k/uL Eosinophils # 0.3 (0-0.7) k/uL Basophils # 0.1 (0-0.2) k/uL Hypochromasia Marked PT (9.0-12.0) sec INR (<1.2) APTT (22.0-30.0) sec Sodium 140 (137-145) mmol/L Potassium 4.9 (3.5-5.1) mmol/L Chloride 106 (98-107) mmol/L Carbon Dioxide 24 (22-30) mmol/L Anion Gap 10 mmol/L BUN 18 H (7-17) mg/dL Creatinine 0.73 (0.52-1.04) mg/dL Est GFR (CKD-EPI)AfAm >90 (>60 ml/min/1.73 sqM) Est GFR (CKD-EPI)NonAf >90 (>60 ml/min/1.73 sqM) Glucose 118 H (74-99) mg/dL Plasma Lactic Acid Kannan (0.7-2.0) mmol/L Calcium 9.1 (8.4-10.2) mg/dL Magnesium 1.6 (1.6-2.3) mg/dL Total Bilirubin 0.9 (0.2-1.3) mg/dL AST 27 (14-36) U/L ALT 13 (4-34) U/L Alkaline Phosphatase 59 (38-126) U/L Troponin I (0.000-0.034) ng/mL NT-Pro-B Natriuret Pep pg/mL Total Protein 7.3 (6.3-8.2) g/dL Albumin 4.1 (3.5-5.0) g/dL Influenza Type A RNA Not Detected (Not Detectd) Influenza Type B (PCR) Not Detected (Not Detectd) 11/15/19 11/15/19 11/15/19 Range/Units 18:35 18:35 18:35 WBC (3.8-10.6) k/uL RBC (3.80-5.40) m/uL Hgb (11.4-16.0) gm/dL Hct (34.0-46.0) % MCV (80.0-100.0) fL MCH (25.0-35.0) pg MCHC (31.0-37.0) g/dL RDW (11.5-15.5) % Plt Count (150-450) k/uL Neutrophils % % Lymphocytes % % Monocytes % % Eosinophils % % Basophils % % Neutrophils # (1.3-7.7) k/uL Lymphocytes # (1.0-4.8) k/uL Monocytes # (0-1.0) k/uL Eosinophils # (0-0.7) k/uL Basophils # (0-0.2) k/uL Hypochromasia PT 10.9 (9.0-12.0) sec INR 1.1 (<1.2) APTT 21.8 L (22.0-30.0) sec Sodium (137-145) mmol/L Potassium (3.5-5.1) mmol/L Chloride (98-107) mmol/L Carbon Dioxide (22-30) mmol/L Anion Gap mmol/L BUN (7-17) mg/dL Creatinine (0.52-1.04) mg/dL Est GFR (CKD-EPI)AfAm (>60 ml/min/1.73 sqM) Est GFR (CKD-EPI)NonAf (>60 ml/min/1.73 sqM) Glucose (74-99) mg/dL Plasma Lactic Acid Kannan 1.8 (0.7-2.0) mmol/L Calcium (8.4-10.2) mg/dL Magnesium (1.6-2.3) mg/dL Total Bilirubin (0.2-1.3) mg/dL AST (14-36) U/L ALT (4-34) U/L Alkaline Phosphatase (38-126) U/L Troponin I (0.000-0.034) ng/mL NT-Pro-B Natriuret Pep 3000 pg/mL Total Protein (6.3-8.2) g/dL Albumin (3.5-5.0) g/dL Influenza Type A RNA (Not Detectd) Influenza Type B (PCR) (Not Detectd) 11/15/19 Range/Units 18:35 WBC (3.8-10.6) k/uL RBC (3.80-5.40) m/uL Hgb (11.4-16.0) gm/dL Hct (34.0-46.0) % MCV (80.0-100.0) fL MCH (25.0-35.0) pg MCHC (31.0-37.0) g/dL RDW (11.5-15.5) % Plt Count (150-450) k/uL Neutrophils % % Lymphocytes % % Monocytes % % Eosinophils % % Basophils % % Neutrophils # (1.3-7.7) k/uL Lymphocytes # (1.0-4.8) k/uL Monocytes # (0-1.0) k/uL Eosinophils # (0-0.7) k/uL Basophils # (0-0.2) k/uL Hypochromasia PT (9.0-12.0) sec INR (<1.2) APTT (22.0-30.0) sec Sodium (137-145) mmol/L Potassium (3.5-5.1) mmol/L Chloride (98-107) mmol/L Carbon Dioxide (22-30) mmol/L Anion Gap mmol/L BUN (7-17) mg/dL Creatinine (0.52-1.04) mg/dL Est GFR (CKD-EPI)AfAm (>60 ml/min/1.73 sqM) Est GFR (CKD-EPI)NonAf (>60 ml/min/1.73 sqM) Glucose (74-99) mg/dL Plasma Lactic Acid Kannan (0.7-2.0) mmol/L Calcium (8.4-10.2) mg/dL Magnesium (1.6-2.3) mg/dL Total Bilirubin (0.2-1.3) mg/dL AST (14-36) U/L ALT (4-34) U/L Alkaline Phosphatase (38-126) U/L Troponin I 0.013 (0.000-0.034) ng/mL NT-Pro-B Natriuret Pep pg/mL Total Protein (6.3-8.2) g/dL Albumin (3.5-5.0) g/dL Influenza Type A RNA (Not Detectd) Influenza Type B (PCR) (Not Detectd) Disposition Clinical Impression: Congestive heart failure, Acute exacerbation of chronic obstructive pulmonary disease Disposition: ADMITTED IP TO THIS HOSP Condition: Stable Is patient prescribed a controlled substance at d/c from ED?: No Referrals: James Harvey DO [Primary Care Provider] - 1-2 days Decision to Admit Reason: Admit from EC Decision Date: 11/15/19 Decision Time: 20:21
[2019-11-15 19:06] LABS: Basophils # (A) 0.1 k/uL (0-0.2); Basophils % (A) 1 %; Eosinophils # (A) 0.3 k/uL (0-0.7); Eosinophils % (A) 3 %; HCT 44.3 % (34.0-46.0); HGB 13.3 gm/dL (11.4-16.0); Hypochromasia Marked; Lymphocytes # (A) 2.1 k/uL (1.0-4.8); Lymphocytes % (A) 19 %; MCH 25.8 pg (25.0-35.0); MCHC 30.1 g/dL (31.0-37.0); MCV 85.6 fL (80.0-100.0); Mean Platelet Volume 8.3; Monocytes # (A) 0.5 k/uL (0-1.0); Monocytes % (A) 5 %; Neutrophils # (A) 7.9 k/uL (1.3-7.7); Neutrophils % (A) 72 %; Platelet Count 293 k/uL (150-450); RBC 5.17 m/uL (3.80-5.40); RDW 15.8 % (11.5-15.5)
[2019-11-15] MEDS: IPRATROPIUM 0.5 MG/2.5 ML NEBU INHALATION STA ×2 (19:18→19:19)
[2019-11-15 19:21] LABS: INR 1.1 (<1.2); Prothrombin Time 10.9 sec (9.0-12.0)
[2019-11-15 19:22] LABS: ALT 13 U/L (4-34); AST 27 U/L (14-36); African American GFR (CKD) >90 (>60 ml/min/1.73 sqM); Albumin 4.1 g/dL (3.5-5.0); Alkaline Phosphatase 59 U/L (38-126); Anion Gap 10 mmol/L; Blood Urea Nitrogen 18 mg/dL (7-17); Calcium 9.1 mg/dL (8.4-10.2); Carbon Dioxide 24 mmol/L (22-30); Chloride 106 mmol/L (98-107); Glucose 118 mg/dL (74-99); Magnesium 1.6 mg/dL (1.6-2.3); Non-African American GFR(CKD) >90 (>60 ml/min/1.73 sqM); Potassium 4.9 mmol/L (3.5-5.1); Sodium 140 mmol/L (137-145); Total Bilirubin 0.9 mg/dL (0.2-1.3); Total Protein 7.3 g/dL (6.3-8.2)
[2019-11-15 19:24] LABS: Partial Thromboplastin Time 21.8 sec (22.0-30.0)
[2019-11-15] MEDS ORDERED: FUROSEMIDE 10 MG/ML 4 ML VIAL IV STA (19:47)
[2019-11-15] MEDS ORDERED: ASPIRIN 325 MG TAB PO STA (19:49)
--- NOTE | 2019-11-15 20:09 | XR ---
EXAMINATION TYPE: XR chest 2V DATE OF EXAM: 11/15/2019 COMPARISON: Prior chest x-ray 07/12/2019 HISTORY: Difficulty breathing TECHNIQUE: Frontal and lateral views of the chest are obtained. FINDINGS: There is some blunting of the posterior costophrenic angle, right costophrenic angle on th e frontal exam. The heart remains enlarged. Central vascularity prominence is noted. Interstitium is increased. No pneumothorax. IMPRESSION: Correlate for congestive heart failure, there may be small right pleural effusion. Cardi omegaly.
[2019-11-15] MEDS ORDERED: IPRATROPIUM-ALBUTEROL 3 ML NEB INHALATION PRN (20:15)
[2019-11-16] MEDS: IPRATROPIUM-ALBUTEROL 3 ML NEB INHALATION SCH ×5 (05:42→19:19)
[2019-11-16] MEDS ORDERED: predniSONE 20 MG TAB PO SCH (09:00)
[2019-11-16] MEDS: BUDESONIDE 1 MG/2 ML NEBU INHALATION SCH ×2 (09:44→19:19)
[2019-11-16] MEDS: FUROSEMIDE 10 MG/ML 4 ML VIAL IV SCH ×2 (09:57→21:10)
[2019-11-16] MEDS: CARVEDILOL 12.5 MG TAB PO SCH ×2 (09:57→17:42)
[2019-11-16] MEDS: VERAPAMIL 40 MG TAB PO SCH ×2 (09:57→21:09)
[2019-11-16] MEDS: NICOTINE 14MG/24HR PATCH TRANSDERM SCH ×2 (09:58→10:18)
--- NOTE | 2019-11-16 11:24 | P.CNPUL ---
History of Present Illness Consult date: 11/16/19 Requesting physician: Adan Springer Reason for consult: dyspnea History of present illness: 44-year-old female patient, agrees with known history of COPD and previous history of cardiomyopathy in addition to a combination of other comorbidities came into the hospital because of worsening shortness of breath, exertion over the past 6 months. Apparently she was taking diuretics at home without improvement in her symptoms. No reported chest pain. No fever. No chills. No sweats. No pleurisy. No hemoptysis. Reports increase in lower extremity edema along with weight gain. She has COPD and she is a chronic smoker. Chest x-ray showed cardiomegaly along with pulmonary vessel congestion. ProBNP level was in the 3000 range. Currently she is on IV Lasix. In terms of her COPD, she has been maintained on Airduo on outpatient basis. She also has obstructive sleep apnea and she is not taking any CPAP or BiPAP devices for now. Significant comorbidities as stated. EKG was showing some sinus rhythm with an LBB pattern which is probably chronic. The patient is having also nasal congestion and plugging. No pleurisy. No hemoptysis. She has been utilizing her nebulizer on a regular basis. She is down to half pack of cigarette smoking on a daily basis. Review of Systems Constitutional: Reports daytime sleepiness, Reports weight gain (60 pounds over the past 6 months) Eyes: denies as per HPI, denies blurred vision, denies bulging eye, denies decreased vision, denies diplopia, denies discharge, denies dry eye, denies irritation, denies itching, denies pain, denies photophobia, denies loss of peripheral vision, denies loss of vision, denies tunnel vision/blind spots Ears: deny: decreased hearing, ear discharge, earache, tinnitus Ears, nose, mouth and throat: Denies headache, Denies sore throat Breasts: absent: as per HPI, change in shape, gynecomastia, masses, nipple discharge, pain, skin changes, swelling Cardiovascular: Reports decreased exercise tolerance, Reports dyspnea on exertion, Reports leg edema, Reports lightheadedness, Reports orthopnea, Reports shortness of breath Respiratory: Reports cough, Reports cough with sputum, Reports dyspnea, Reports sleep apnea, Reports snoring Gastrointestinal: Reports as per HPI Genitourinary: Reports as per HPI Menstruation: Reports as per HPI Musculoskeletal: Reports as per HPI, Reports muscle weakness Musculoskeletal: bilateral: ankle swelling, foot swelling, absent: ankle pain, ankle stiffness Integumentary: Reports as per HPI Neurological: Reports as per HPI Psychiatric: Reports as per HPI Endocrine: Reports as per HPI Hematologic/Lymphatic: Reports as per HPI Allergic/Immunologic: Reports as per HPI Past Medical History Past Medical History: Heart Failure, COPD, GERD/Reflux, Hypertension, Seizure Disorder, Sleep Apnea/CPAP/BIPAP Additional Past Medical History / Comment(s): hx of diverticulitis and colon polyps, hemmorhoids hx of diverticulitis and colon polyps, hemmorhoids, kidney stones, HX pneumonia /vented-2011, peptic ulcers, Sleep apnea-no device currently, bilateral occipital neuritis, headaches, vertigo, neuropathy; history of Arnold-Chiari malformation postcraniotomy, history of obesity, COPD, CHF with previous history of cardiomyopathy History of Any Multi-Drug Resistant Organisms: None Reported Past Surgical History: Cholecystectomy, Hernia Repair Additional Past Surgical History / Comment(s): brain surgery 2012 for seizures & headaches, Right ovary/tube removed 2009, D&C, Picc line insertion since removed, Kidney stone surgically removed & lithotripsy., Laproscopic Cristy Fu ndoplasty. Colonoscopy, Past Anesthesia/Blood Transfusion Reactions: No Reported Reaction, Motion Sickness Past Psychological History: No Psychological Hx Reported Smoking Status: Current every day smoker Past Alcohol Use History: Rare Additional Past Alcohol Use History / Comment(s): Patient is a smoker limits herself to 10 cigarettes a day. She drinks alcohol very rarely. Past Drug Use History: Marijuana Additional Drug Use History / Comment(s): Marijuana daily. - Past Family History Father Family Medical History: AFIB, Diabetes Mellitus, Hypertension Additional Family Medical History / Comment(s): Father is alive at age 67 with history of atrial fibrillation, diabetes, hypertension, pacemaker. Mother Family Medical History: Cancer Additional Family Medical History / Comment(s): Mother of pancreatic cancer at the age of 58yrs. Maternal cousin had pancreatic cancer. Maternal uncle had lung cancer. Sister(s) Family Medical History: AICD/Pacemaker Additional Family Medical History / Comment(s): the patient has one sister with AICD. Second sister has no major medical problems. Patient's 1 brother that is healthy. Patient has one son and one daughter with no major medical problems. Medications and Allergies Home Medications Medication Instructions Recorded Confirmed Type Acetaminophen [Tylenol Extra 500 mg PO Q4H 10/25/19 11/15/19 History Strength] Carvedilol 12.5 mg PO BID 10/25/19 11/15/19 History Cromolyn Sodium 20 mg IH RT-QID PRN 10/25/19 11/15/19 History Ipratropium Nebulized [Atrovent 0.5 vial INHALATION RT-QID 10/25/19 11/15/19 History Nebulized 0.2 MG/ML] Furosemide [Lasix] 20 mg PO BID PRN 11/15/19 11/15/19 History Verapamil HCl [Calan] 120 mg PO BID 11/15/19 11/15/19 History Allergies Allergy/AdvReac Type Severity Reaction Status Date / Time pregabalin [From Lyrica] Allergy Unknown Unknown Verified 11/15/19 21:31 acetylcysteine Allergy Swelling Verified 11/15/19 21:31 hydromorphone HCl Allergy headache Verified 11/15/19 21:31 [From Dilaudid] BERRIES Allergy Anaphylaxis Uncoded 10/28/19 07:17 Physical Exam Vitals: Vital Signs Temp Pulse Pulse Resp BP BP Pulse Ox 11/16/19 10:34 80 18 11/16/19 10:01 94 11/16/19 09:47 96 11/16/19 08:25 97.4 F L 80 18 142/92 96 11/16/19 05:58 92 11/16/19 05:42 82 94 L 11/16/19 01:17 97.6 F 88 17 148/96 96 11/16/19 01:01 97.9 F 85 22 160/99 95 11/16/19 00:00 98.2 F 82 20 11/15/19 22:00 80 20 163/98 95 11/15/19 21:00 80 22 155/96 95 11/15/19 20:00 98.7 F 79 22 95 11/15/19 19:46 88 11/15/19 19:20 88 11/15/19 19:09 88 11/15/19 18:25 20 95 11/15/19 18:06 97.8 F 91 20 131/88 96 Intake and Output 11/15/19 11/16/19 11/16/19 22:59 06:59 14:59 Intake Total 580 Balance 580 Intake: Oral 580 Other: Voiding Method Toilet # Voids 2 2 # Bowel Movements 1 Weight 118.841 kg 72.5 kg 72.7 kg Obese, comfortable no acute distress Head exam was generally normal. There was no scleral icterus or corneal arcus. Mucous membranes were moist. Neck was supple and without jugular venous distension, thyromegaly, or carotid bruits. Carotids were easily palpable bilaterally. There was no adenopathy. Lung sounds are diminished bilaterally along with scattered expiratory wheezes throughout the lung pulliam and crackles at lung bases Cardiac exam revealed the PMI to be normally situated and sized. The rhythm was regular and no extrasystoles were noted during several minutes of auscultation. The first and second heart sounds were normal and physiologic splitting of the second heart sound was noted. There were no murmurs, rubs, clicks, or gallops. Abdomen is obese organs cannot be accurately palpated. No direct tenderness abundance regarding Extremities revealed +1-2 pitting edema and there is no cyanosis or clubbing Neurologically awake and alert and is no focal neurological deficits. Examination of the skin revealed no evidence of significant rashes, suspicious appearing nevi or other concerning lesions. Results - Laboratory Findings CBC and BMP: 11/15/19 18:35 11/15/19 18:35 PT/INR, D-dimer PT 10.9 sec (9.0-12.0) 11/15/19 18:35 INR 1.1 (<1.2) 11/15/19 18:35 Abnormal lab findings: Abnormal Labs 11/15/19 11/15/19 11/15/19 18:35 18:35 18:35 WBC 11.0 H MCHC 30.1 L RDW 15.8 H Neutrophils # 7.9 H APTT 21.8 L BUN 18 H Glucose 118 H - Diagnostic Findings Chest x-ray: image reviewed Assessment and Plan Plan: 1 acute COPD exacerbation/acute bronchitis 2 acute exacerbation of CHF. The patient has chronic heart failure with systolic dysfunction and ejection fraction of 40-45%. She has developed significant exertional dyspnea and orthopnea and lower extremity edema with an elevated proBNP level. She is in significant fluid overload and the patient has gained around 60 pounds. She is coming in for worsening shortness of breath. 3 Acute hypoxic respiratory failure 4 previous history of cardiomyopathy 5 hypertension 6 obesity 7 obstructive sleep apnea not receiving any treatment 8 Arnold-Chiari malformation 9 chronic left bundle branch block pattern on EKG 10 nephrolithiasis 11 history of convulsions/seizures 12 history of diverticulosis, colonic polyps and previous history of diverticulitis and hemorrhoids 13 chronic tobacco and marijuana smoker 14 diabetes mellitus Plan Agree on the current treatment Offer of bronchodilators and steroids and diuretics Monitor electrolytes Repeat echocardiogram Outpatient PFTs Smoking cessation counseling Outpatient sleep study and management of obstructive sleep apnea We'll follow.
[2019-11-16 11:44] LABS: Glucose,Whole Blood 182 mg/dL (75-99)
[2019-11-16] MEDS: INSULIN ASPART (NovoLOG) 100 UNIT/ML VIAL SQ SCH ×3 (12:10→21:19)
[2019-11-16] MEDS: methylPREDNISolone SOD SUCCI 125 MG/2 ML VIAL IV SCH ×2 (12:10→17:42)
--- NOTE | 2019-11-16 13:26 | P.HPIM ---
History of Present Illness H&P Date: 11/16/19 Chief Complaint: Shortness of breath This is a 44-year-old female patient of Dr. Harvey with past medical history of COPD, diabetes mellitus type 2, diabetic neuropathy, hypertension, cardiomyopathy, obstructive sleep apnea without device, kidney stones, occipital neuritis, chronic headaches and seizures, hiatal hernia status post Cristy fundoplication, Chiari malformation status post craniotomy in 2012, tobacco use and dependence, daily marijuana use. Patient was last hospitalized in April 2019 which time she was treated for acute diastolic heart failure, acute exacerbation of COPD, hypertensive emergency. Patient did not follow-up with Dr. Rivera at that time. She states that she has an appointment with Dr. Alcocer in the near future. Patient gives history that she had difficulty breathing that started a few months ago. She complains of wheezing and cough. She also complains of fluid and weight gain. She is unable to lay flat. She complains of chest pressure. She denies having any fever or chills. Patient presented to [facility] emergency center for evaluation. She was afebrile, heart rate 91, blood pressure 131/88, pulse ox 96%. WBC 11, electrolytes within normal limits, hemoglobin 13.3, BUN 18 creatinine 0.73, blood sugar 118. Chest x-ray consistent with heart failure, possible small right pleural effusion. Cardiomegaly. Influenza testing negative. Liver function tests within normal limits. ProBNP 3000, lactic acid 1.8. Troponin 0.013. Patient admitted to the MedSurg floor, started onNebulizer treatments, Solu-Medrol, Lasix 40 mg IV every 12 hours, echocardiogram. Consult added for Dr. Alcocer and cardiology. Review of Systems Constitutional: Reports fatigue, Reports weakness, Denies anorexia, Denies chills, Denies fever, Denies poor appetite, Reports weight gain Ears, nose, mouth and throat: Denies dysphagia, Denies nasal congestion, Denies nasal discharge, Denies vertigo Cardiovascular: Reports chest pain, Reports decreased exercise tolerance, Reports dyspnea on exertion, Reports edema, Reports leg edema, reports orthopnea, Reports shortness of breath Respiratory: Reports cough, Reports cough with sputum, Reports dyspnea, Denies excessive sputum, Denies hemoptysis, Denies home oxygen Gastrointestinal: Denies abdominal pain, Denies loss of appetite, Denies nausea, Denies vomiting Genitourinary: Denies dysuria, Denies urgency, Denies urinary frequency Musculoskeletal: Denies muscle weakness, Denies myalgias Integumentary: Denies pruritus, Denies rash, Denies wounds Neurological: Denies aphasia, Denies change in mentation, Denies change in speech, Denies confusion, Denies seizures Psychiatric: Denies anxiety, Denies depression Endocrine: Denies fatigue, Denies weight change Past Medical History Past Medical History: Heart Failure, COPD, GERD/Reflux, Hypertension, Seizure Disorder, Sleep Apnea/CPAP/BIPAP Additional Past Medical History / Comment(s): mult kidney stones, HX pneumonia /vented-2011, peptic ulcers, Sleep apnea-no device currently, bilateral occipital neuritis, headaches, vertigo, neuropathy;"legs give out at times". States has "convulsions" "I get numb,fall asleep,and shake, but I'm aware of my surroundings" hx of diverticulitis and colon polyps, hemmorhoids History of Any Multi-Drug Resistant Organisms: None Reported Past Surgical History: Cholecystectomy, Hernia Repair Additional Past Surgical History / Comment(s): brain surgery 2013 for seizures & headaches, Right ovary/tube removed 2009, D&C, Picc line insertion since removed, Kidney stone surgically removed & lithotripsy., Laproscopic Cristy Fundoplasty. Colonoscopy, Past Anesthesia/Blood Transfusion Reactions: No Reported Reaction, Motion Sickness Past Psychological History: No Psychological Hx Reported Smoking Status: Current every day smoker Past Alcohol Use History: Rare Additional Past Alcohol Use History / Comment(s): Patient is a smoker of 2+ packs per day since she was 13 years of age and currently down to 8 cigarettes per day. She drinks alcohol rarely. She smokes marijuana on a daily basis 5-6 joints per day. She was with her boyfriend. She has not worked in the past 10 years. Past Drug Use History: Marijuana Additional Drug Use History / Comment(s): Marijuana daily. - Past Family History Father Family Medical History: AFIB, Diabetes Mellitus, Hypertension Additional Family Medical History / Comment(s): Father is alive at age 67 with history of atrial fibrillation, diabetes, hypertension, pacemaker. Mother Family Medical History: Cancer Additional Family Medical History / Comment(s): Mother of pancreatic cancer at the age of 58yrs. Maternal cousin had pancreatic cancer. Maternal uncle had lung cancer. Sister(s) Family Medical History: AICD/Pacemaker Additional Family Medical History / Comment(s): the patient has one sister with AICD. Second sister has no major medical problems. Patient's 1 brother that is healthy. Patient has one son and one daughter with no major medical problems. Medications and Allergies Home Medications Medication Instructions Recorded Confirmed Type Acetaminophen [Tylenol Extra 500 mg PO Q4H 10/25/19 11/15/19 History Strength] Carvedilol 12.5 mg PO BID 10/25/19 11/15/19 History Cromolyn Sodium 20 mg IH RT-QID PRN 10/25/19 11/15/19 History Ipratropium Nebulized [Atrovent 0.5 vial INHALATION RT-QID 10/25/19 11/15/19 History Nebulized 0.2 MG/ML] Furosemide [Lasix] 20 mg PO BID PRN 11/15/19 11/15/19 History Verapamil HCl [Calan] 120 mg PO BID 11/15/19 11/15/19 History Allergies Allergy/AdvReac Type Severity Reaction Status Date / Time pregabalin [From Lyrica] Allergy Unknown Unknown Verified 11/15/19 21:31 acetylcysteine Allergy Swelling Verified 11/15/19 21:31 hydromorphone HCl Allergy headache Verified 11/15/19 21:31 [From Dilaudid] BERRIES Allergy Anaphylaxis Uncoded 10/28/19 07:17 Physical Exam Vitals: Vital Signs Temp Pulse Pulse Resp BP BP Pulse Ox 11/16/19 10:34 80 18 11/16/19 10:01 94 11/16/19 09:47 96 11/16/19 08:25 97.4 F L 80 18 142/92 96 11/16/19 05:58 92 11/16/19 05:42 82 94 L 11/16/19 01:17 97.6 F 88 17 148/96 96 11/16/19 01:01 97.9 F 85 22 160/99 95 11/16/19 00:00 98.2 F 82 20 11/15/19 22:00 80 20 163/98 95 11/15/19 21:00 80 22 155/96 95 11/15/19 20:00 98.7 F 79 22 95 11/15/19 19:46 88 11/15/19 19:20 88 11/15/19 19:09 88 11/15/19 18:25 20 95 11/15/19 18:06 97.8 F 91 20 131/88 96 Intake and Output 11/15/19 11/16/19 11/16/19 22:59 06:59 14:59 Intake Total 580 Balance 580 Intake: Oral 580 Other: Voiding Method Toilet # Voids 2 2 # Bowel Movements 1 Weight 118.841 kg 72.5 kg 72.7 kg Gen: This is a 44-year-old obese female. She is found in her room sleeping on her stomach. Patient awakened by verbal stimuli. HEENT: Head is atraumatic, normocephalic. Pupils equal, round. Sclerae is anicteric. NECK: Supple. No JVD. No lymphadenopathy. No thyromegaly. LUNGS: Diminished bilaterally with bibasilar rales and scattered rhonchi. No intercostal retractions. HEART: Regular rate and rhythm. No murmur. ABDOMEN: Soft. Bowel sounds are present. No masses. Mild left upper quadrant tenderness. EXTREMITIES: bilateral 1-2+ lower extremity edema and edema to bilateral hands. No calf tenderness. NEUROLOGICAL: Patient is awake, alert and oriented x3. Cranial nerves 2 through 12 are grossly intact. Results CBC & Chem 7: 11/15/19 18:35 11/15/19 18:35 Labs: Abnormal Lab Results - Last 24 Hours (Table) 11/15/19 11/15/19 11/15/19 Range/Units 18:35 18:35 18:35 WBC 11.0 H (3.8-10.6) k/uL MCHC 30.1 L (31.0-37.0) g/dL RDW 15.8 H (11.5-15.5) % Neutrophils # 7.9 H (1.3-7.7) k/uL APTT 21.8 L (22.0-30.0) sec BUN 18 H (7-17) mg/dL Glucose 118 H (74-99) mg/dL Thrombosis Risk Factor Assmnt - DVT/VTE Prophylaxis DVT/VTE Prophylaxis: Pharmacologic Prophylaxis ordered - Choose All That Apply Each Factor Represents 1 point: Abnormal pulmonary function (COPD), Age 41-60 years, Heart failure (<1month) Thrombosis Risk Factor Assessment Total Risk Factor Score: 3 Thrombosis Risk Factor Assessment Level: Moderate Risk Assessment and Plan Plan: 1. Acute respiratory distress without respiratory failure secondary to a combination of acute on chronic diastolic heart failure and acute exacerbation of COPD, acute bronchitis. 2. Acute on chronic diastolic heart failure with history of cardiomyopathy. Cardiology consult. Continue Lasix 40 mg IV every 12 hours, I&O and daily weight, Echocardiogram has been ordered. Coreg 12.5 mg twice daily. 3. Acute exacerbation of COPD, acute tracheobronchitis. Pulmonary medicine consult. Patient started on Solu-Medrol 60 mg IV every 6 hours, DuoNeb treat ments 4 times daily and every 4 hours as needed, Pulmicort 1 mg twice daily. 4. Chest pain, most likely secondary to musculoskeletal. Cardiology consult. 5. Hypertension. Continue verapamil 120 mg twice daily, Coreg 12.5 mg twice daily. 6. Diabetes mellitus type 2. NovoLog scale, hemoglobin A1c. 7. Diabetic neuropathy. Off Neurontin. 8. Obstructive sleep apnea. 9. History of Chiari malformation status post craniotomy in 2012, stable 10. Chronic headaches and seizure disorder under the care of jeff Smith. 11. Hiatal hernia status post Cristy fundoplication. 12. Active tobacco use and dependence. Nicotine patch. 13. Active marijuana use daily. 14. DVT prophylaxis. Heparin subcu 15. GI prophylaxis. Protonix. Patient will be admitted to the hospital for a minimum of 2 night stay. Discharge plan: Home Impression and plan of care have been directed as dictated by the signing physician. Radha Garvey nurse practitioner acting as scribe for signing ph ysician.
--- NOTE | 2019-11-16 13:28 | P.CRDCN ---
History of Present Illness History of present illness: HISTORY OF PRESENTING ILLNESS This is a pleasant 44-year-old female past medical history significant for cardiomyopathy, hypertension, COPD, chronic diastolic heart fail ure, sleep apnea, chronic nicotine dependence and daily marijuana use. She does not follow in the office with a transportation equipment painter for any reason. We have been asked to see in consultation for heart failure. She states she was first diagnosed with heart failure last year in April. She was recommended to have outpatient stress testing but has yet to follow up. She states her breathing has been labored since that admission with intermittent periods of improvement. Over the last week her symptoms have been more constant and associated with increased fatigue and no motivation. She took increased lasix yesterday morning with no urine output or improvement in her breathing. No chest pain, dizziness, palp itations, nausea or vomiting. DIAGNOSTICS EKG reveals sinus mechanism, left bundle branch and left axis deviation. Chest xray blunting of the costrophrenic angle, central vascularity and small right pleural effusion. Laboratory reviewed, WBC 11, hemoglobin 13.3, platelets 293, sodium 140, potassium 4.9, creatinine 0.73, NT proBNP 3000, magnesium 1.6 and troponin negative 1. Current cardiac medications include Lasix 20 mg twice a day as needed, carvedilol 12.5 mg twice a day and verapamil 120 mg twice a day. Most recent echocardiogram obtained April 2019 reveals preserved LV systolic function with ejection fraction 45-50%, grade 2 diastolic dysfunction, basal inferior LV wall motion hypokinesia, moderate MR and mild TR. REVIEW OF SYSTEMS At the time of my exam: CONSTITUTIONAL: Denies fever or chills. CARDIOVASCULAR: Complains of shortness of breath. Denies chest pain, orthopnea, PND or palpitations. RESPIRATORY: Denies cough. GASTROINTESTINAL: Denies abdominal pain, diarrhea, constipation, nausea or vomiting. MUSCULOSKELETAL: Denies myalgias. NEUROLOGIC: Denies numbness, tingling or weakness. ENDOCRINE: Complains of fatigue. Denies weight change, polydipsia or polyurina. GENITOURINARY: Denies burning, hematuria or urgency with micturation. HEMATOLOGIC: Denies history of anemia or bleeding. PHYSICAL EXAMINATION Blood pressure 142/92 heart rate 96 afebrile and maintaining oxygen saturation on nasal cannula. CONSTITUTIONAL: No apparent distress. HEENT: Head is normocephalic. Pupils are equal, round. Sclerae anicteric. Mucous membranes of the mouth are moist. No JVD. No carotid bruit. CHEST EXAMINATION: Bibasilar rales, expiratory wheezes, no rhonchi. No chest wall tenderness is noted on palpation or with deep breathing. HEART EXAMINATION: Regular rate and rhythm. S1, S2 heard. No murmurs, gallops or rub. ABDOMEN: Soft, nontender. Positive bowel sounds. EXTREMITIES: 2+ peripheral pulses, bilateral lower extremity 1+ pitting edema and no calf tenderness. NEUROLOGIC EXAMINATION: Patient is awake, alert and oriented x3. ASSESSMENT Acute on chronic diastolic heart failure COPD Hypertension Chronic nicotine dependence PLAN Agree with IV diuresis. Repeat echocardiogram. Initiate losartan 25 mg daily. Follow electrolytes and renal function in the morning. Document accurate intake and output along with daily weights. Further recommendations to follow based on clinical course. Thank you kindly for this consultation. Nurse Practitioner note has been reviewed, I agree with a documented findings and plan of care. Patient was seen and examined. Past Medical History Past Medical History: Heart Failure, COPD, GERD/Reflux, Hypertension, Seizure Disorder, Sleep Apnea/CPAP/BIPAP Additional Past Medical History / Comment(s): mult kidney stones, HX pneumonia /vented-2011, peptic ulcers, Sleep apnea-no device currently, bilateral occipital neuritis, headaches, vertigo, neuropathy;"legs give out at times". States has "convulsions" "I get numb,fall asleep,and shake, but I'm aware of my surroundings" hx of diverticulitis and colon polyps, hemmorhoids History of Any Multi-Drug Resistant Organisms: None Reported Past Surgical History: Cholecystectomy, Hernia Repair Additional Past Surgical History / Comment(s): brain surgery 2013 for seizures & headaches, Right ovary/tube removed 2009, D&C, Picc line insertion since removed, Kidney stone surgically removed & lithotripsy., Laproscopic Cristy Fundoplasty. Colonoscopy, Past Anesthesia/Blood Transfusion Reactions: No Reported Reaction, Motion Sickness Past Psychological History: No Psychological Hx Reported Smoking Status: Current every day smoker Past Alcohol Use History: Rare Additional Past Alcohol Use History / Comment(s): Patient is a smoker limits herself to 10 cigarettes a day. She drinks alcohol very rarely. Past Drug Use History: Marijuana Additional Drug Use History / Comment(s): Marijuana daily. - Past Family History Father Family Medical History: AFIB, Diabetes Mellitus, Hypertension Additional Family Medical History / Comment(s): Father is alive at age 67 with history of atrial fibrillation, diabetes, hypertension, pacemaker. Mother Family Medical History: Cancer Additional Family Medical History / Comment(s): Mother of pancreatic cancer at the age of 58yrs. Maternal cousin had pancreatic cancer. Maternal uncle had lung cancer. Sister(s) Family Medical History: AICD/Pacemaker Additional Family Medical History / Comment(s): the patient has one sister with AICD. Second sister has no major medical problems. Patient's 1 brother that is healthy. Patient has one son and one daughter with no major medical problems. Medications and Allergies Home Medications Medication Instructions Recorded Confirmed Type Acetaminophen [Tylenol Extra 500 mg PO Q4H 10/25/19 11/15/19 History Strength] Carvedilol 12.5 mg PO BID 10/25/19 11/15/19 History Cromolyn Sodium 20 mg IH RT-QID PRN 10/25/19 11/15/19 History Ipratropium Nebulized [Atrovent 0.5 vial INHALATION RT-QID 10/25/19 11/15/19 History Nebulized 0.2 MG/ML] Furosemide [Lasix] 20 mg PO BID PRN 11/15/19 11/15/19 History Verapamil HCl [Calan] 120 mg PO BID 11/15/19 11/15/19 History Allergies Allergy/AdvReac Type Severity Reaction Status Date / Time pregabalin [From Lyrica] Allergy Unknown Unknown Verified 11/15/19 21:31 acetylcysteine Allergy Swelling Verified 11/15/19 21:31 hydromorphone HCl Allergy headache Verified 11/15/19 21:31 [From Dilaudid] BERRIES Allergy Anaphylaxis Uncoded 10/28/19 07:17 Physical Exam Vitals: Vital Signs Temp Pulse Pulse Resp BP BP Pulse Ox 11/16/19 12:37 90 11/16/19 12:28 90 11/16/19 10:34 80 18 11/16/19 10:01 94 11/16/19 09:47 96 11/16/19 08:25 97.4 F L 80 18 142/92 96 11/16/19 05:58 92 11/16/19 05:42 82 94 L 11/16/19 01:17 97.6 F 88 17 148/96 96 11/16/19 01:01 97.9 F 85 22 160/99 95 11/16/19 00:00 98.2 F 82 20 11/15/19 22:00 80 20 163/98 95 11/15/19 21:00 80 22 155/96 95 11/15/19 20:00 98.7 F 79 22 95 11/15/19 19:46 88 11/15/19 19:20 88 11/15/19 19:09 88 11/15/19 18:25 20 95 11/15/19 18:06 97.8 F 91 20 131/88 96 Intake and Output 11/15/19 11/16/19 11/16/19 22:59 06:59 14:59 Intake Total 580 Balance 580 Intake: Oral 580 Other: Voiding Method Toilet # Voids 2 2 # Bowel Movements 1 Weight 118.841 kg 72.5 kg 72.7 kg Results 11/15/19 18:35 11/15/19 18:35 Cardiac Enzymes 11/15/19 11/15/19 Range/Units 18:35 18:35 AST 27 (14-36) U/L Troponin I 0.013 (0.000-0.034) ng/mL Coagulation 11/15/19 Range/Units 18:35 PT 10.9 (9.0-12.0) sec APTT 21.8 L (22.0-30.0) sec CBC 11/15/19 Range/Units 18:35 WBC 11.0 H (3.8-10.6) k/uL RBC 5.17 (3.80-5.40) m/uL Hgb 13.3 (11.4-16.0) gm/dL Hct 44.3 (34.0-46.0) % Plt Count 293 (150-450) k/uL Comprehensive Metabolic Panel 11/15/19 Range/Units 18:35 Sodium 140 (137-145) mmol/L Potassium 4.9 (3.5-5.1) mmol/L Chloride 106 (98-107) mmol/L Carbon Dioxide 24 (22-30) mmol/L BUN 18 H (7-17) mg/dL Creatinine 0.73 (0.52-1.04) mg/dL Glucose 118 H (74-99) mg/dL Calcium 9.1 (8.4-10.2) mg/dL AST 27 (14-36) U/L ALT 13 (4-34) U/L Alkaline Phosphatase 59 (38-126) U/L Total Protein 7.3 (6.3-8.2) g/dL Albumin 4.1 (3.5-5.0) g/dL Current Medications Generic Name Dose Route Start Last Admin Trade Name Freq PRN Reason Stop Dose Admin Albuterol/Ipratropium 3 ml 11/15/19 20:15 Duoneb 0.5 Mg-3 Mg/3 Ml Soln INHALATION RT-Q4H PRN Shortness Of Breath Or Wheezing Albuterol/Ipratropium 3 ml 11/16/19 08:00 11/16/19 12:26 Duoneb 0.5 Mg-3 Mg/3 Ml Soln INHALATION 3 ml RT-QID ARLINE Administration Budesonide 1 mg 11/16/19 09:29 11/16/19 09:44 Pulmicort INHALATION 1 mg RT-BID ARLINE Administration Carvedilol 12.5 mg 11/16/19 09:30 11/16/19 09:57 Coreg PO 12.5 mg AC-BID ARLINE Administration Furosemide 40 mg 11/16/19 09:00 11/16/19 09:57 Lasix IV 40 mg Q12HR ARLINE Administration Insulin Aspart 0 unit 11/16/19 12:30 11/16/19 12:10 Novolog SQ 4 unit ACHS ARLINE Administration Protocol Methylprednisolone Sodium Succinate 60 mg 11/16/19 12:00 11/16/19 12:10 Solu-Medrol IV 60 mg Q6HR ARLINE Administration Nicotine 1 patch 11/16/19 09:45 11/16/19 10:18 Habitrol 14mg/24hr Patch TRANSDERM Not Given DAILY ARLINE Verapamil HCl 120 mg 11/16/19 09:30 11/16/19 09:57 Isoptin PO 120 mg BID ARLINE Administration Intake and Output 11/15/19 11/16/19 11/16/19 22:59 06:59 14:59 Intake Total 580 Balance 580 Intake: Oral 580 Other: Voiding Method Toilet # Voids 2 2 # Bowel Movements 1 Weight 118.841 kg 72.5 kg 72.7 kg Patient Weight 11/17/19 06:59 Weight 72.7 kg 11/15/19 18:35 11/15/19 18:35
[2019-11-16] MEDS: LOSARTAN 25 MG TAB PO SCH (13:49)
[2019-11-16 14:09] VITALS: BMI 29.7
[2019-11-16 16:45] LABS: Glucose,Whole Blood 269 mg/dL (75-99)
[2019-11-16] MEDS ORDERED: INSULIN ASPART (NovoLOG) 100 UNIT/ML VIAL SQ ONE (18:19)
--- NOTE | 2019-11-16 19:42 | ECHOF ---
Referral Reason:CHF MEASUREMENTS -------- HEIGHT: 156.2 cm WEIGHT: 118.8 kg BP: 148/96 RVIDd: 3.2 cm (< 3.3) IVSd: 1.4 cm (0.6 - 1.1) LVIDd: 5.3 cm (3.9 - 5.3) LVPWd: 1.5 cm (0.6 - 1.1) IVSs: 1.7 cm LVIDs: 4.1 cm LVPWs: 1.9 cm LA Diam: 4.3 cm (2.7 - 3.8) LAESV Index (A-L): 38.01 ml/m Ao Diam: 3.3 cm (2.0 - 3.7) AV Cusp: 2.5 cm (1.5 - 2.6) MV EXCURSION: 13.536 mm (> 18.000) MV EF SLOPE: 29 mm/s (70 - 150) EPSS: 1.4 cm MV E Aravind: 1.42 m/s MV DecT: 188 ms MV A Aravind: 0.96 m/s MV E/A Ratio: 1.47 RAP: 15.00 mmHg RVSP: 45.99 mmHg TAPSE: 23.49 mm FINDINGS -------- Sinus rhythm. This was a technically adequate study. The left ventricular size is normal. There is moderate concentric left ventricular hypertrophy. O verall left ventricular systolic function is mildly impaired with, an EF between 45 - 50 %. Grade 2 distolic dysfunction Septal wall motion is delayed, and consistent with conduction delay/bundle br anch block. The right ventricle is normal in size. LA is moderately dilated 34-39 ml/m2 The right atrium is normal in size. Interatrial and interventricular septum intact. The aortic valve is trileaflet and appears structurally normal. Moderate mitral regurgitation is present. Mild tricuspid regurgitation present. There is mild to moderate pulmonary hypertension. The right ventricular systolic pressure, as measured by Doppler, is 45.99mmHg. Trace/mild (physiologic) pulmonic regurgitation. The aortic root size is normal. The inferior vena cava is dilated with no significant inspiratory collapse which is consistent estima tammie right atrial pressure of >15 mmHg. There is no pericardial effusion. CONCLUSIONS -------- 1. Sinus rhythm. 2. This was a technically adequate study. 3. The left ventricular size is normal. 4. There is moderate concentric left ventricular hypertrophy. 5. Overall left ventricular systolic function is mildly impaired with, an EF between 45 - 50 %. 6. Grade 2 distolic dysfunction 7. Septal wall motion is delayed, and consistent with conduction delay/bundle branch block. 8. The right ventricle is normal in size. 9. LA is moderately dilated 34-39 ml/m2 10. The right atrium is normal in size. 11. Interatrial and interventricular septum intact. 12. The aortic valve is trileaflet and appears structurally normal. 13. Moderate mitral regurgitation is present. 14. Mild tricuspid regurgitation present. 15. There is mild to moderate pulmonary hypertension. 16. The right ventricular systolic pressure, as measured by Doppler, is 45.99mmHg. 17. Trace/mild (physiologic) pulmonic regurgitation. 18. The aortic root size is normal. 19. The inferior vena cava is dilated with no significant inspiratory collapse which is consistent es timated right atrial pressure of >15 mmHg. 20. There is no pericardial effusion. GENERATOR SWITCHBOARD OPERATOR: Kim Brownlee RDCS
[2019-11-16 20:22] LABS: Glucose,Whole Blood 241 mg/dL (75-99)
[2019-11-17] MEDS: ACETAMINOPHEN TAB 325 MG TAB PO PRN ×3 (00:38→16:31)
[2019-11-17] MEDS: methylPREDNISolone SOD SUCCI 125 MG/2 ML VIAL IV SCH ×2 (00:39→06:06)
[2019-11-17 07:15] LABS: Glucose,Whole Blood 309 mg/dL (75-99)
[2019-11-17] MEDS: INSULIN ASPART (NovoLOG) 100 UNIT/ML VIAL SQ SCH ×4 (07:51→20:44)
[2019-11-17] MEDS: FUROSEMIDE 10 MG/ML 4 ML VIAL IV SCH ×2 (07:51→20:47)
[2019-11-17] MEDS: IPRATROPIUM-ALBUTEROL 3 ML NEB INHALATION SCH ×4 (07:58→19:56)
[2019-11-17] MEDS: BUDESONIDE 1 MG/2 ML NEBU INHALATION SCH ×2 (07:58→19:56)
[2019-11-17] MEDS: CARVEDILOL 12.5 MG TAB PO SCH ×2 (07:59→17:16)
[2019-11-17] MEDS: PANTOPRAZOLE 40 MG TABLET PO SCH (08:00)
[2019-11-17 08:31] LABS: African American GFR (CKD) >90 (>60 ml/min/1.73 sqM); Anion Gap 11 mmol/L; Blood Urea Nitrogen 25 mg/dL (7-17); Calcium 9.7 mg/dL (8.4-10.2); Carbon Dioxide 31 mmol/L (22-30); Chloride 95 mmol/L (98-107); Cholesterol 161 mg/dL (<200); Glucose 307 mg/dL (74-99); HDL Cholesterol 46 mg/dL (40-60); LDL Cholesterol,Calculated 93 mg/dL (0-99); Non-African American GFR(CKD) >90 (>60 ml/min/1.73 sqM); Potassium 4.6 mmol/L (3.5-5.1); Sodium 137 mmol/L (137-145); Triglycerides 108 mg/dL (<150)
[2019-11-17] MEDS: NICOTINE 14MG/24HR PATCH TRANSDERM SCH (09:54)
[2019-11-17] MEDS: VERAPAMIL 40 MG TAB PO SCH ×2 (09:55→20:47)
[2019-11-17] MEDS: LOSARTAN 25 MG TAB PO SCH (09:56)
[2019-11-17] MEDS: ASPIRIN 81 MG PO SCH (09:56)
[2019-11-17] MEDS: SPIRONOLACTONE 25 MG TAB PO SCH (09:56)
--- NOTE | 2019-11-17 10:42 | P.PN ---
Subjective HISTORY OF PRESENTING ILLNESS This is a pleasant 44-year-old female past medical history significant for cardiomyopathy, hypertension, COPD, chronic diastolic heart failure, sleep apnea, chronic nicotine dependence and daily marijuana use. She does not follow in the office with a milk house worker for any reason. She is seen and examined up ambulating around the room. She continues to be short of breath. She states her legs feel much better and she can actually bend them without discomfort. She has been up urinating frequently, however there is no documentation of output. No chest pain, dizziness or palpitations. Blood press ure 148/88 heart rate 84 afebrile and maintaining oxygen saturation on nasal cannula. Echocardiogram reveals impaired LV systolic function with ejection fraction 45-50%, grade 2 diastolic dysfunction, septal wall motion delay consistent with bundle branch block, moderate MR, mild TR and mild to moderate pulmonary hypertension with an RVSP of 45 mmHg. Laboratory data reviewed, sodium 137, potassium 4.6, creatinine 0.74, LDL 93. Currently maintained on Lasix 40 mg IV twice a day, aspirin 81 mg daily, carvedilol 12.5 mg twice a day, losartan 25 mg daily and verapamil 120 mg twice a day. PHYSICAL EXAMINATION CONSTITUTIONAL: No apparent distress. HEENT: Head is normocephalic. Pupils are equal, round. Sclerae anicteric. Mucous membranes of the mouth are moist. No JVD. No carotid bruit. CHEST EXAMINATION: Bibasilar rales, expiratory wheezes, no rhonchi. No chest wall tenderness is noted on palpation or with deep breathing. HEART EXAMINATION: Regular rate and rhythm. S1, S2 heard. No murmurs, gallops or rub. EXTREMITIES: 2+ peripheral pulses, no lower extremity edema and no calf tende rness. ASSESSMENT Acute on chronic diastolic heart failure COPD Hypertension Chronic nicotine dependence PLAN Continue IV diuresis for another 24 hours. Initiate on aldactone 25 mg daily. Accurate documentation of output imperative. We will continue to follow and make recommendations accordingly. Nurse Practitioner note has been reviewed, I agree with a documented findings and plan of care. Patient was seen and examined. Objective - Vital Signs Vital signs: Vital Signs Temp 98.1 F 11/17/19 07:00 Pulse 84 11/17/19 09:22 Resp 20 11/17/19 09:22 BP 148/88 11/17/19 07:00 Pulse Ox 98 11/17/19 07:58 Intake & Output 11/16/19 11/17/19 11/17/19 18:59 06:59 18:59 Intake Total 580 240 Balance 580 240 Weight 72.7 kg 71.5 kg Intake: Oral 580 240 Other: Voiding Method Toilet Toilet # Voids 2 2 # Bowel Movements 1 - Labs CBC & Chem 7: 11/15/19 18:35 11/17/19 07:30 Labs: Abnormal Lab Results - Last 24 Hours (Table) 11/16/19 11/16/19 11/16/19 Range/Units 11:31 16:33 20:11 Chloride (98-107) mmol/L Carbon Dioxide (22-30) mmol/L BUN (7-17) mg/dL Glucose (74-99) mg/dL POC Glucose (mg/dL) 182 H 269 H 241 H (75-99) mg/dL 11/17/19 11/17/19 Range/Units 07:03 07:30 Chloride 95 L (98-107) mmol/L Carbon Dioxide 31 H (22-30) mmol/L BUN 25 H (7-17) mg/dL Glucose 307 H (74-99) mg/dL POC Glucose (mg/dL) 309 H (75-99) mg/dL
[2019-11-17 12:03] LABS: Glucose,Whole Blood 243 mg/dL (75-99)
[2019-11-17] MEDS: methylPREDNISolone SOD SUCCI 40 MG/ML 1 ML VIAL IV SCH (14:55)
--- NOTE | 2019-11-17 14:56 | P.PN ---
Subjective Progress Note Date: 11/17/19 44-year-old female patient, agrees with known history of COPD and previous history of cardiomyopathy in addition to a combination of other comorbidities came into the hospital because of worsening shortness of breath, exertion over the past 6 months. Apparently she was taking diuretics at home without improvement in her symptoms. No reported chest pain. No fever. No chills. No sweats. No pleurisy. No hemoptysis. Reports increase in lower extremity edema along with weight gain. She has COPD and she is a chronic smoker. Chest x-ray showed cardiomegaly along with pulmonary vessel congestion. ProBNP level was in the 3000 range. Currently she is on IV Lasix. In terms of her COPD, she has been maintained on Airduo on outpatient basis. She also has obstructive sleep apnea and she is not taking any CPAP or BiPAP devices for now. Significant comorbidities as stated. EKG was showing some sinus rhythm with an LBB pattern which is probably chronic. The patient is having also nasal congestion and plugging. No pleurisy. No hemoptysis. She has been utilizing her nebulizer on a regular basis. She is down to half pack of cigarette smoking on a daily basis. On today's evaluation of 11/17/2019 the patient is feeling slightly better compared to yesterday. She is currently being diuresed and she is making good urine output. She underwent an echocardiogram that showed moderate LVH, ejection fraction of 45-50%, grade 2 diastolic heart failure, there was also evidence of [id number] pulmonary hypertension with a PA pressure of 45. The IVC was dilated and there was no significant inspiratory collapse consistent with volume overload. The patient is currently receiving bronchodilators patient is on IV Solu-Medrol. She is on Lasix 40 mg IV push every 12 hours. Aldactone was also added to her regimen. Her weight is down. Objective - Vital Signs Vital signs: Vital Signs Temp 98.1 F 11/17/19 07:00 Pulse 82 11/17/19 11:41 Resp 20 11/17/19 09:22 BP 148/88 11/17/19 07:00 Pulse Ox 98 11/17/19 07:58 Intake & Output 11/16/19 11/17/19 11/17/19 18:59 06:59 18:59 Intake Total 580 240 Balance 580 240 Weight 72.7 kg 71.5 kg Intake: Oral 580 240 Other: Voiding Method Toilet Toilet # Voids 2 2 # Bowel Movements 1 - Exam Obese, comfortable no acute distress Head exam was generally normal. There was no scleral icterus or corneal arcus. Mucous membranes were moist. Neck was supple and without jugular venous distension, thyromegaly, or carotid bruits. Carotids were easily palpable bilaterally. There was no adenopathy. Lung sounds are diminished bilaterally along with scattered expiratory wheezes throughout the lung pulliam and crackles at lung bases Cardiac exam revealed the PMI to be normally situated and sized. The rhythm was regular and no extrasystoles were noted during several minutes of auscultation. The first and second heart sounds were normal and physiologic splitting of the second heart sound was noted. There were no murmurs, rubs, clicks, or gallops. Abdomen is obese organs cannot be accurately palpated. No direct tenderness abundance regarding Extremities revealed +1-2 pitting edema and there is no cyanosis or clubbing Neurologically awake and alert and is no focal neurological deficits. Examination of the skin revealed no evidence of significant rashes, suspicious appearing nevi or other concerning lesions. - Labs CBC & Chem 7: 11/15/19 18:35 11/17/19 07:30 Labs: Abnormal Lab Results - Last 24 Hours (Table) 11/16/19 11/16/19 11/17/19 Range/Units 16:33 20:11 07:03 Chloride (98-107) mmol/L Carbon Dioxide (22-30) mmol/L BUN (7-17) mg/dL Glucose (74-99) mg/dL POC Glucose (mg/dL) 269 H 241 H 309 H (75-99) mg/dL 11/17/19 11/17/19 Range/Units 07:30 11:51 Chloride 95 L (98-107) mmol/L Carbon Dioxide 31 H (22-30) mmol/L BUN 25 H (7-17) mg/dL Glucose 307 H (74-99) mg/dL POC Glucose (mg/dL) 243 H (75-99) mg/dL Assessment and Plan Plan: 1 acute COPD exacerbation/acute bronchitis 2 acute exacerbation of CHF. The patient has chronic heart failure with syst olic dysfunction and ejection fraction of 40-45%. She has developed significant exertional dyspnea and orthopnea and lower extremity edema with an elevated proBNP level. She is in significant fluid overload and the patient has gained around 60 pounds. She is coming in for worsening shortness of breath. 3 Acute hypoxic respiratory failure 4 previous history of cardiomyopathy 5 hypertension 6 obesity 7 obstructive sleep apnea not receiving any treatment 8 Arnold-Chiari malformation 9 chronic left bundle branch block pattern on EKG 10 nephrolithiasis 11 history of convulsions/seizures 12 history of diverticulosis, colonic polyps and previous history of diverticulitis and hemorrhoids 13 chronic tobacco and marijuana smoker 14 diabetes mellitus Plan Echo results was noted. The patient has a combination of systolic and diastolic heart failure. Clinically improving Continue the bronchodilators and IV Solu-Medrol. Cardiology is on the case Reevaluate in a.m. Will need accurate input output measures.
--- NOTE | 2019-11-17 15:13 | P.PN ---
Subjective Progress Note Date: 11/17/19 This is a 44-year-old female patient of Dr. Harvey with past medical history of COPD, diabetes mellitus type 2, diabetic neuropathy, hypertension, cardiomyopathy, obstructive sleep apnea without device, kidney stones, occipital neuritis, chronic headaches and seizures, hiatal hernia status post Cristy fundoplication, Chiari malformation status post craniotomy in 2012, tobacco use and dependence, daily marijuana use. Patient was last hospitalized in April 2019 which time she was treated for acute diastolic heart failure, acute exacerbation of COPD, hypertensive emergency. Patient did not follow-up with Dr. Rivera at that time. She states that she has an appointment with Dr. Alcocer in the near future. Patient gives history that she had difficulty breathing that started a few months ago. She complains of wheezing and cough. She also complains of fluid and weight gain. She is unable to lay flat. She complains of chest pressure. She denies having any fever or chills. Patient presented to [facility] emergency center for evaluation. She was afebrile, heart rate 91, blood pressure 131/88, pulse ox 96%. WBC 11, electrolytes within normal limits, hemoglobin 13.3, BUN 18 creatinine 0.73, blood sugar 118. Chest x-ray consistent with heart failure, possible small right pleural effusion. Cardiomegaly. Influenza testing negative. Liver function tests within normal limits. ProBNP 3000, lactic acid 1.8. Troponin 0.013. Patient admitted to the MedSurg floor, started on Nebulizer treatments, Solu-Medrol, Lasix 40 mg IV every 12 hours, echocardiogram. Consult added for Dr. Alcocer and cardiology. 11/17: Patient states that her breathing is much better today and the form of less wheezing and less coughing. She also states lower extremity edema is improved and she can especially feel it in her thighs and abdomen. Patient is currently on Solu-Medrol 40 g IV every 8 hours and Lasix 40 mg IV every 12 hours. Weight is down 1 kg. Repeat lab work reveals potassium 4.6, BUN 25 and creatinine 0.74, CO2 31. Blood sugars have been quite elevated running between 243 and 309. Triglycerides 108, cholesterol 161, LDL 93, HDL 46. Levemir and scheduled NovoLog added. The patient has been seen and followed by pulmonary medicine and cardiology. Aldactone has been started. Patient to continue another day of IV Lasix. Echocardiogram reveals EF of 45-50%, grade 2 diastolic heart failure, mild to moderate pulmonary hypertension. Review of Systems Constitutional: Reports fatigue, Reports weakness, Denies anorexia, Denies chills, Denies fever, Denies poor appetite, Reports weight gain Ears, nose, mouth and throat: Denies dysphagia, Denies nasal congestion, Denies nasal discharge, Denies vertigo Cardiovascular: Reports chest pain, Reports decreased exercise tolerance, Reports dyspnea on exertion, Reports edema, Reports leg edema, reports orthopnea, Reports shortness of breath Respiratory: Reports cough, Reports cough with sputum, Reports dyspnea- improving, Denies excessive sputum, Denies hemoptysis, Denies home oxygen Gastrointestinal: Denies abdominal pain, Denies loss of appetite, Denies nausea, Denies vomiting Genitourinary: Denies dysuria, Denies urgency, Denies urinary frequency Musculoskeletal: Denies muscle weakness, Denies myalgias Integumentary: Denies pruritus, Denies rash, Denies wounds Neurological: Denies aphasia, Denies change in mentation, Denies change in speech, Denies confusion, Denies seizures Psychiatric: Denies anxiety, Denies depression Endocrine: Denies fatigue, Denies weight change Objective - Vital Signs Vital signs: Vital Signs Temp 98.1 F 11/17/19 07:00 Pulse 84 11/17/19 09:22 Resp 20 11/17/19 09:22 BP 148/88 11/17/19 07:00 Pulse Ox 98 11/17/19 07:58 Intake & Output 11/16/19 11/17/19 11/17/19 18:59 06:59 18:59 Intake Total 580 240 Balance 580 240 Weight 72.7 kg 71.5 kg Intake: Oral 580 240 Other: Voiding Method Toilet Toilet # Voids 2 2 # Bowel Movements 1 - Exam Gen: This is a 44-year-old obese female. She is found sitting in recliner and in no acute distress. HEENT: Head is atraumatic, normocephalic. Pupils equal, round. Sclerae is anicteric. NECK: Supple. No JVD. No lymphadenopathy. No thyromegaly. LUNGS: Diminished bilaterally with bibasilar rales and scattered rhonchi, scattered wheeze. No intercostal retractions. HEART: Regular rate and rhythm. No murmur. ABDOMEN: Soft. Bowel sounds are present. No masses. Mild left upper quadrant tenderness. EXTREMITIES: bilateral 1-2+ lower extremity edema and edema to bilateral hands. No calf tenderness. NEUROLOGICAL: Patient is awake, alert and oriented x3. Cranial nerves 2 through 12 are grossly intact. - Labs CBC & Chem 7: 11/15/19 18:35 11/17/19 07:30 Labs: Abnormal Lab Results - Last 24 Hours (Table) 11/16/19 11/16/19 11/16/19 Range/Units 11:31 16:33 20:11 Chloride (98-107) mmol/L Carbon Dioxide (22-30) mmol/L BUN (7-17) mg/dL Glucose (74-99) mg/dL POC Glucose (mg/dL) 182 H 269 H 241 H (75-99) mg/dL 11/17/19 11/17/19 Range/Units 07:03 07:30 Chloride 95 L (98-107) mmol/L Carbon Dioxide 31 H (22-30) mmol/L BUN 25 H (7-17) mg/dL Glucose 307 H (74-99) mg/dL POC Glucose (mg/dL) 309 H (75-99) mg/dL Assessment and Plan Plan: 1. Acute respiratory distress without respiratory failure secondary to a combination of acute on chronic diastolic heart failure and acute exacerbation of COPD, acute bronchitis. 2. Acute on chronic diastolic heart failure with history of cardiomyopathy. Cardiology consult. Continue Lasix 40 mg IV every 12 hours, I&O and daily weight, Echocardiogram as above. Coreg 12.5 mg twice daily, Aldactone 25 mg daily added. 3. Acute exacerbation of COPD, acute tracheobronchitis. Pulmonary medicine consult. Continue Solu-Medrol decreased to 40 mg IV every 8 hours, DuoNeb treatments 4 times daily and every 4 hours as needed, Pulmicort 1 mg twice daily. 4. Chest pain, most likely secondary to musculoskeletal. Cardiology consult. 5. Hypertension. Continue verapamil 120 mg twice daily, Coreg 12.5 mg twice daily. 6. Diabetes mellitus type 2, uncontrolled with hyperglycemia secondary to steroids. Hemoglobin A1c is pending. Levemir 10 units daily, NovoLog 3 units with meals and scale. 7. Diabetic neuropathy. Off Neurontin. 8. Obstructive sleep apnea. 9. History of Chiari malformation status post craniotomy in 2013, stable 10. Chronic headaches and seizure disorder under the care of jeff Smith. 11. Hiatal hernia status post Cristy fundoplication. 12. Active tobacco use and dependence. Nicotine patch. 13. Active marijuana use daily. 14. DVT prophylaxis. Heparin subcu 15. GI prophylaxis. Protonix. Discharge plan: Home Impression and plan of care have been directed as dictated by the signing physician. Radha Garvey nurse practitioner acting as scribe for signing physician.
[2019-11-17] MEDS: INSULIN DETEMIR (LEVEMIR) 100 UNIT/ML SYR SQ SCH (16:27)
[2019-11-17 16:59] LABS: Glucose,Whole Blood 336 mg/dL (75-99)
[2019-11-17] MEDS ORDERED: INSULIN ASPART (NovoLOG) 100 UNIT/ML VIAL SQ SCH (17:30)
[2019-11-17 20:25] LABS: Glucose,Whole Blood 364 mg/dL (75-99)
[2019-11-17] MEDS ORDERED: INSULIN ASPART (NovoLOG) 100 UNIT/ML VIAL SQ ONE (20:38)
[2019-11-17 21:05] LABS: Hemoglobin A1C 7.4 % (4.0-6.0)
[2019-11-18] MEDS: methylPREDNISolone SOD SUCCI 40 MG/ML 1 ML VIAL IV SCH ×2 (00:21→07:16)
[2019-11-18 07:02] LABS: Glucose,Whole Blood 212 mg/dL (75-99)
[2019-11-18] MEDS: INSULIN DETEMIR (LEVEMIR) 100 UNIT/ML SYR SQ SCH (07:11)
[2019-11-18] MEDS: INSULIN ASPART (NovoLOG) 100 UNIT/ML VIAL SQ SCH ×6 (07:11→20:29)
[2019-11-18] MEDS: ACETAMINOPHEN TAB 325 MG TAB PO PRN (07:15)
[2019-11-18] MEDS: PANTOPRAZOLE 40 MG TABLET PO SCH (07:16)
[2019-11-18] MEDS ORDERED: INSULIN ASPART (NovoLOG) 100 UNIT/ML VIAL SQ SCH (07:30)
[2019-11-18] MEDS: SPIRONOLACTONE 25 MG TAB PO SCH (08:42)
[2019-11-18] MEDS: VERAPAMIL 40 MG TAB PO SCH ×2 (08:42→20:29)
[2019-11-18] MEDS: LOSARTAN 25 MG TAB PO SCH (08:42)
[2019-11-18] MEDS: FUROSEMIDE 10 MG/ML 4 ML VIAL IV SCH ×2 (08:42→20:29)
[2019-11-18] MEDS: CARVEDILOL 12.5 MG TAB PO SCH ×2 (08:42→17:20)
[2019-11-18] MEDS: ASPIRIN 81 MG PO SCH (08:42)
[2019-11-18] MEDS: NICOTINE 14MG/24HR PATCH TRANSDERM SCH (08:43)
[2019-11-18] MEDS: BUDESONIDE 1 MG/2 ML NEBU INHALATION SCH ×2 (09:11→19:02)
[2019-11-18] MEDS: IPRATROPIUM-ALBUTEROL 3 ML NEB INHALATION SCH ×4 (09:11→19:02)
--- NOTE | 2019-11-18 11:25 | P.PN ---
Subjective Progress Note Date: 11/18/19 44-year-old female patient, agrees with known history of COPD and previous history of cardiomyopathy in addition to a combination of other comorbidities came into the hospital because of worsening shortness of breath, exertion over the past 6 months. Apparently she was taking diuretics at home without improvement in her symptoms. No reported chest pain. No fever. No chills. No sweats. No pleurisy. No hemoptysis. Reports increase in lower extremity edema along with weight gain. She has COPD and she is a chronic smoker. Chest x-ray showed cardiomegaly along with pulmonary vessel congestion. ProBNP level was in the 3000 range. Currently she is on IV Lasix. In terms of her COPD, she has been maintained on Airduo on outpatient basis. She also has obstructive sleep apnea and she is not taking any CPAP or BiPAP devices for now. Significant comorbidities as stated. EKG was showing some sinus rhythm with an LBB pattern which is probably chronic. The patient is having also nasal congestion and plugging. No pleurisy. No hemoptysis. She has been utilizing her nebulizer on a regular basis. She is down to half pack of cigarette smoking on a daily basis. On today's evaluation of 11/17/2019 the patient is feeling slightly better compared to yesterday. She is currently being diuresed and she is making good urine output. She underwent an echocardiogram that showed moderate LVH, ejection fraction of 45-50%, grade 2 diastolic heart failure, there was also evidence of [id number] pulmonary hypertension with a PA pressure of 45. The IVC was dilated and there was no significant inspiratory collapse consistent with volume overload. The patient is currently receiving bronchodilators patient is on IV Solu-Medrol. She is on Lasix 40 mg IV push every 12 hours. Aldactone was also added to her regimen. Her weight is down. Today's evaluation of 11/18/2019 the patient is being seen in follow-up. The patient continues to feel better. The fluid balance over the past 24 hours has been -2.2 L and overall the patient has lost another kilograms since her last evaluation. She is still on IV Lasix and she is receiving 40 mg every 12 hours of IV Lasix and she is also on IV Solu-Medrol along with DuoNeb nebulized treatments around the clock. She has no specific complaints. Aldactone was added. No nausea. No vomiting. No diarrhea. No abdominal pain. She is a outpatient smoker. Objective - Vital Signs Vital signs: Vital Signs Temp 97.7 F 11/18/19 07:00 Pulse 70 11/18/19 07:00 Resp 15 11/18/19 07:00 BP 133/78 11/18/19 07:00 Pulse Ox 95 11/18/19 02:01 Intake & Output 11/17/19 11/18/19 11/18/19 18:59 06:59 18:59 Intake Total 240 240 Output Total 2475 1650 Balance 240 -2475 -1410 Weight 71.5 kg Intake: Oral 240 240 Output: Urine 0855 1650 Other: Voiding Method Toilet Toilet Toilet # Voids 2 - Exam Obese, comfortable no acute distress Head exam was generally normal. There was no scleral icterus or corneal arcus. Mucous membranes were moist. Neck was supple and without jugular venous distension, thyromegaly, or carotid bruits. Carotids were easily palpable bilaterally. There was no adenopathy. Lung sounds are diminished bilaterally along with scattered expiratory wheezes throughout the lung pulliam and crackles at lung bases Cardiac exam revealed the PMI to be normally situated and sized. The rhythm was regular and no extrasystoles were noted during several minutes of auscultation. The first and second heart sounds were normal and physiologic splitting of the second heart sound was noted. There were no murmurs, rubs, clicks, or gallops. Abdomen is obese organs cannot be accurately palpated. No direct tenderness abundance regarding Extremities revealed +1-2 pitting edema and there is no cyanosis or clubbing Neurologically awake and alert and is no focal neurological deficits. Examination of the skin revealed no evidence of significant rashes, suspicious appearing nevi or other concerning lesions. - Labs CBC & Chem 7: 11/15/19 18:35 11/17/19 07:30 Labs: Abnormal Lab Results - Last 24 Hours (Table) 11/17/19 11/17/19 11/17/19 Range/Units 07:30 11:51 16:56 POC Glucose (mg/dL) 243 H 336 H (75-99) mg/dL Hemoglobin A1c 7.4 H (4.0-6.0) % 11/17/19 11/18/19 Range/Units 20:13 06:51 POC Glucose (mg/dL) 364 H 212 H (75-99) mg/dL Hemoglobin A1c (4.0-6.0) % Assessment and Plan Plan: 1 acute COPD exacerbation/acute bronchitis, improving 2 acute exacerbation of CHF. The patient has chronic heart failure with systolic dysfunction and ejection fraction of 40-45%. She has developed signi ficant exertional dyspnea and orthopnea and lower extremity edema with an elevated proBNP level. She is in significant fluid overload and the patient has gained around 60 pounds. She is coming in for worsening shortness of breath. The patient is overall improving and the patient's diabetes including IV Lasix. She has lost considerable amount of weight. 3 Acute hypoxic respiratory failure 4 previous history of cardiomyopathy 5 hypertension 6 obesity 7 obstructive sleep apnea not receiving any treatment 8 Arnold-Chiari malformation 9 chronic left bundle branch block pattern on EKG 10 nephrolithiasis 11 history of convulsions/seizures 12 history of diverticulosis, colonic polyps and previous history of diverticulitis and hemorrhoids 13 chronic tobacco and marijuana smoker 14 diabetes mellitus Plan Echo results was noted. The patient has a combination of systolic and diastolic heart failure. Clinically improving, continue diuretics Continue the bronchodilators and this continued IV Solu-Medrol and start the patient prednisone burst taper. Cardiology is on the case Reevaluate in a.m.
[2019-11-18 12:03] LABS: Glucose,Whole Blood 226 mg/dL (75-99)
[2019-11-18 13:06] LABS: African American GFR (CKD) >90 (>60 ml/min/1.73 sqM); Anion Gap 7 mmol/L; Blood Urea Nitrogen 31 mg/dL (7-17); Calcium 9.6 mg/dL (8.4-10.2); Carbon Dioxide 38 mmol/L (22-30); Chloride 93 mmol/L (98-107); Glucose 230 mg/dL (74-99); Non-African American GFR(CKD) 87 (>60 ml/min/1.73 sqM); Potassium 4.4 mmol/L (3.5-5.1); Sodium 138 mmol/L (137-145)
[2019-11-18] MEDS: REPAGLINIDE 1 MG TAB PO SCH ×2 (13:10→17:23)
--- NOTE | 2019-11-18 13:59 | P.PN ---
Subjective HISTORY OF PRESENTING ILLNESS This is a pleasant 44-year-old female past medical history significant for cardiomyopathy, hypertension, COPD, chronic diastolic heart failure, sleep apnea, chronic nicotine dependence and daily marijuana use. She does not follow in the office with a coal cutter for any reason. She is seen and examined sitting up in the bed eating lunch. She states she has been up all night using the bathroom and continues to have shortness of breath. Lower extremity swelling is improving but not completely resolved. Blood pressure 133/78 heart rate 74 afebrile and maintaining oxygen saturation on nasal ca nnula. Laboratory data reviewed, sodium 138, potassium 4.4, creatinine 0.83. Currently maintained on aspirin 81 mg daily, carvedilol 12.5 mg twice a day, Lasix 40 mg IV twice a day, losartan 25 mg daily, Aldactone 25 mg daily and verapamil 129 g twice a day. She is diuresing well with over 4000 cc urine output. PHYSICAL EXAMINATION CONSTITUTIONAL: No apparent distress. HEENT: Head is normocephalic. Pupils are equal, round. Sclerae anicteric. Mucous membranes of the mouth are moist. No JVD. No carotid bruit. CHEST EXAMINATION: Bibasilar rales, expiratory wheezes, no rhonchi. No chest wall tenderness is noted on palpation or with deep breathing. HEART EXAMINATION: Regular rate and rhythm. S1, S2 heard. No murmurs, gallops or rub. EXTREMITIES: 2+ peripheral pulses, no lower extremity edema and no calf tenderness. ASSESSMENT Acute on chronic diastolic heart failure COPD Hypertension Chronic nicotine dependence PLAN Continue current regimen. We will continue to follow and make recommendations accordingly. Nurse Practitioner note has been reviewed, I agree with a documented findings and plan of care. Patient was seen and examined. Objective - Vital Signs Vital signs: Vital Signs Temp 97.7 F 11/18/19 07:00 Pulse 74 11/18/19 12:44 Resp 15 11/18/19 07:00 BP 133/78 11/18/19 07:00 Pulse Ox 95 11/18/19 02:01 Intake & Output 11/17/19 11/18/19 11/18/19 18:59 06:59 18:59 Intake Total 240 240 Output Total 2475 1650 Balance 240 -5425 -1410 Weight 71.5 kg Intake: Oral 240 240 Output: Urine 8925 1650 Other: Voiding Method Toilet Toilet Toilet # Voids 2 - Labs CBC & Chem 7: 11/15/19 18:35 11/18/19 12:18 Labs: Abnormal Lab Results - Last 24 Hours (Table) 11/17/19 11/17/19 11/17/19 Range/Units 07:30 16:56 20:13 Chloride (98-107) mmol/L Carbon Dioxide (22-30) mmol/L BUN (7-17) mg/dL Glucose (74-99) mg/dL POC Glucose (mg/dL) 336 H 364 H (75-99) mg/dL Hemoglobin A1c 7.4 H (4.0-6.0) % 11/18/19 11/18/19 11/18/19 Range/Units 06:51 12:01 12:18 Chloride 93 L (98-107) mmol/L Carbon Dioxide 38 H (22-30) mmol/L BUN 31 H (7-17) mg/dL Glucose 230 H (74-99) mg/dL POC Glucose (mg/dL) 212 H 226 H (75-99) mg/dL Hemoglobin A1c (4.0-6.0) %
--- NOTE | 2019-11-18 15:28 | P.PN ---
Subjective Progress Note Date: 11/18/19 This is a 44-year-old female patient of Dr. Harvey with past medical history of COPD, diabetes mellitus type 2, diabetic neuropathy, hypertension, cardiomyopathy, obstructive sleep apnea without device, kidney stones, occipital neuritis, chronic headaches and seizures, hiatal hernia status post Cristy fundoplication, Chiari malformation status post craniotomy in 2012, tobacco use and dependence, daily marijuana use. Patient was last hospitalized in April 2019 which time she was treated for acute diastolic heart failure, acute exacerbation of COPD, hypertensive emergency. Patient did not follow-up with Dr. Rivera at that time. She states that she has an appointment with Dr. Alcocer in the near future. Patient gives history that she had difficulty breathing that started a few months ago. She complains of wheezing and cough. She also complains of fluid and weight gain. She is unable to lay flat. She complains of chest pressure. She denies having any fever or chills. Patient presented to [facility] emergency center for evaluation. She was afebrile, heart rate 91, blood pressure 131/88, pulse ox 96%. WBC 11, electrolytes within normal limits, hemoglobin 13.3, BUN 18 creatinine 0.73, blood sugar 118. Chest x-ray consistent with heart failure, possible small right pleural effusion. Cardiomegaly. Influenza testing negative. Liver function tests within normal limits. ProBNP 3000, lactic acid 1.8. Troponin 0.013. Patient admitted to the MedSurg floor, started on Nebulizer treatments, Solu-Medrol, Lasix 40 mg IV every 12 hours, echocardiogram. Consult added for Dr. Alcocer and cardiology. 11/17: Patient states that her breathing is much better today and the form of less wheezing and less coughing. She also states lower extremity edema is improved and she can especially feel it in her thighs and abdomen. Patient is currently on Solu-Medrol 40 g IV every 8 hours and Lasix 40 mg IV every 12 hours. Weight is down 1 kg. Repeat lab work reveals potassium 4.6, BUN 25 and creatinine 0.74, CO2 31. Blood sugars have been quite elevated running between 243 and 309. Triglycerides 108, cholesterol 161, LDL 93, HDL 46. Levemir and scheduled NovoLog added. The patient has been seen and followed by pulmonary medicine and cardiology. Aldactone has been started. Patient to continue another day of IV Lasix. Echocardiogram reveals EF of 45-50%, grade 2 diastolic heart failure, mild to moderate pulmonary hypertension. 11/18: Patient states that she continues to feel better respiratory parker. She states she is tired and her sleep is broken during the night. Overall she states her breathing is a lot better from the time she came in. Blood sugars continue to be elevated and hemoglobin A1c came back at 7.4. Patient has been tried on metformin in the past but due to diarrhea she is refusing to try it now. We will plan to start her and on Prandin 2 mg 3 times daily, employment evaluator/case manager notified the patient will need glucometer and a walker has are been ordered for the patient. IV Solu-Medrol has been transitioned to oral prednisone for morning. Anticipate discharge home tomorrow. Long discussion with the patient regarding her need to be compliant with the current medications and follow-up with doctors appointments as scheduled when she leaves the hospital. Patient is tearful during this discussion but verbalizes understanding. Review of Systems Constitutional: Reports fatigue, Reports weakness, Denies anorexia, Denies chills, Denies fever, Denies poor appetite, Reports weight gain Ears, nose, mouth and throat: Denies dysphagia, Denies nasal congestion, Denies nasal discharge, Denies vertigo Cardiovascular: Reports chest pain, Reports decreased exercise tolerance, Reports dyspnea on exertion, Reports edema, Reports leg edema, reports orthopnea, Reports shortness of breath Respiratory: Reports cough, Reports cough with sputum, Reports dyspnea- improving, Denies excessive sputum, Denies hemoptysis Gastrointestinal: Denies abdominal pain, Denies loss of appetite, Denies nausea, Denies vomiting Genitourinary: Denies dysuria, Denies urgency, Denies urinary frequency Musculoskeletal: Denies muscle weakness, Denies myalgias Integumentary: Denies pruritus, Denies rash, Denies wounds Neurological: Denies aphasia, Denies change in mentation, Denies change in speech, Denies confusion, Denies seizures Psychiatric: Denies anxiety, Denies depression Endocrine: Denies fatigue, Denies weight change reports elevated blood sugar Objective - Vital Signs Vital signs: Vital Signs Temp 97.7 F 11/18/19 07:00 Pulse 70 11/18/19 07:00 Resp 15 11/18/19 07:00 BP 133/78 11/18/19 07:00 Pulse Ox 95 11/18/19 02:01 Intake & Output 11/17/19 11/18/19 11/18/19 18:59 06:59 18:59 Intake Total 240 Output Total 2614 650 Balance 240 -2415 -650 Weight 71.5 kg Intake: Oral 240 Output: Urine 9316 183 Other: Voiding Method Toilet Toilet # Voids 2 - Exam Gen: This is a 44-year-old obese female. She is found sitting in recliner and in no acute distress. HEENT: Head is atraumatic, normocephalic. Pupils equal, round. Sclerae is anicteric. NECK: Supple. No JVD. No lymphadenopathy. No thyromegaly. LUNGS: Diminished bilaterally with bibasilar rales and scattered rhonchi, scattered wheeze. No intercostal retractions. HEART: Regular rate and rhythm. No murmur. ABDOMEN: Soft. Bowel sounds are present. No masses. Mild left upper quadrant tenderness. EXTREMITIES: bilateral 1+ lower extremity edema and edema to bilateral hands. No calf tenderness. NEUROLOGICAL: Patient is awake, alert and oriented x3. Cranial nerves 2 through 12 are grossly intact. - Labs CBC & Chem 7: 11/15/19 18:35 11/18/19 12:18 Labs: Abnormal Lab Results - Last 24 Hours (Table) 11/17/19 11/17/19 11/17/19 Range/Units 07:30 11:51 16:56 POC Glucose (mg/dL) 243 H 336 H (75-99) mg/dL Hemoglobin A1c 7.4 H (4.0-6.0) % 11/17/19 11/18/19 Range/Units 20:13 06:51 POC Glucose (mg/dL) 364 H 212 H (75-99) mg/dL Hemoglobin A1c (4.0-6.0) % Assessment and Plan Plan: 1. Acute respiratory distress without respiratory failure secondary to a combination of acute on chronic diastolic heart failure and acute exacerbation of COPD, acute bronchitis. 2. Acute on chronic diastolic heart failure with history of cardiomyopathy. Cardiology consult. Continue Lasix 40 mg IV every 12 hours, I&O and daily weight, Echocardiogram as above. Coreg 12.5 mg twice daily, Aldactone 25 mg daily added. 3. Acute exacerbation of COPD, acute tracheobronchitis. Pulmonary medicine consult. Solu-Medrol transitioned to oral prednisone for morning, DuoNeb treatments 4 times daily and every 4 hours as needed, Pulmicort 1 mg twice daily. 4. Chest pain, most likely secondary to musculoskeletal. Cardiology consult appreciated. 5. Hypertension. Continue verapamil 120 mg twice daily, Coreg 12.5 mg twice da filomena, losartan 25 mg daily added. 6. Diabetes mellitus type 2, uncontrolled with hyperglycemia secondary to steroids. Hemoglobin A1c 7.4. Levemir 10 units daily, NovoLog 10 units with meals and scale, Prandin 2 mg 3 times daily. 7. Diabetic neuropathy. Off Neurontin. 8. Obstructive sleep apnea. 9. History of Chiari malformation status post craniotomy in 2012, stable 10. Chronic headaches and seizure disorder under the care of jeff Smith. 11. Hiatal hernia status post Cristy fundoplication. 12. Active tobacco use and dependence. Nicotine patch. 13. Active marijuana use daily. 14. DVT prophylaxis. Heparin subcu 15. GI prophylaxis. Protonix. Discharge plan: Home on Friday Impression and plan of care have been directed as dictated by the signing physician. Radha Garvey nurse practitioner acting as scribe for signing physician.
[2019-11-18 16:47] LABS: Glucose,Whole Blood 169 mg/dL (75-99)
[2019-11-18 20:25] LABS: Glucose,Whole Blood 120 mg/dL (75-99)
[2019-11-19 02:41] VITALS: RESP 18; TEMP 97.7
[2019-11-19] MEDS: ACETAMINOPHEN TAB 325 MG TAB PO PRN (04:42)
[2019-11-19 07:18] LABS: Glucose,Whole Blood 163 mg/dL (75-99)
[2019-11-19 07:24] VITALS: BP 126/86
[2019-11-19] MEDS: INSULIN ASPART (NovoLOG) 100 UNIT/ML VIAL SQ SCH ×4 (07:47→12:19)
[2019-11-19] MEDS: INSULIN DETEMIR (LEVEMIR) 100 UNIT/ML SYR SQ SCH (07:49)
[2019-11-19] MEDS: PANTOPRAZOLE 40 MG TABLET PO SCH (07:49)
[2019-11-19] MEDS: VERAPAMIL 40 MG TAB PO SCH (07:49)
[2019-11-19] MEDS: LOSARTAN 25 MG TAB PO SCH (07:49)
[2019-11-19] MEDS: SPIRONOLACTONE 25 MG TAB PO SCH (07:49)
[2019-11-19] MEDS: CARVEDILOL 12.5 MG TAB PO SCH (07:49)
[2019-11-19] MEDS: ASPIRIN 81 MG PO SCH (07:49)
[2019-11-19] MEDS: FUROSEMIDE 10 MG/ML 4 ML VIAL IV SCH (07:50)
[2019-11-19] MEDS: NICOTINE 14MG/24HR PATCH TRANSDERM SCH (07:50)
[2019-11-19] MEDS: REPAGLINIDE 1 MG TAB PO SCH ×2 (07:50→12:21)
[2019-11-19] MEDS: IPRATROPIUM-ALBUTEROL 3 ML NEB INHALATION SCH ×2 (08:48→11:58)
[2019-11-19] MEDS: BUDESONIDE 1 MG/2 ML NEBU INHALATION SCH (08:48)
[2019-11-19] MEDS ORDERED: predniSONE 20 MG TAB PO SCH (09:00)
[2019-11-19 09:14] LABS: Calcium 9.5 mg/dL (8.4-10.2); Potassium 4.3 mmol/L (3.5-5.1)
--- NOTE | 2019-11-19 11:21 | P.PN ---
Subjective Progress Note Date: 11/19/19 Principal diagnosis: Exacerbation of COPD, and acute exacerbation of chronic systolic and diastolic congestive heart failure 44-year-old female patient, agrees with known history of COPD and previous history of cardiomyopathy in addition to a combination of other comor bidities came into the hospital because of worsening shortness of breath, exertion over the past 6 months. Apparently she was taking diuretics at home without improvement in her symptoms. No reported chest pain. No fever. No chills. No sweats. No pleurisy. No hemoptysis. Reports increase in lower extremity edema along with weight gain. She has COPD and she is a chronic smoker. Chest x-ray showed cardiomegaly along with pulmonary vessel congestion. ProBNP level was in the 3000 range. Currently she is on IV Lasix. In terms of her COPD, she has been maintained on Airduo on outpatient basis. She also has obstructive sleep apnea and she is not taking any CPAP or BiPAP devices for now. Significant comorbidities as stated. EKG was showing some sinus rhythm with an LBB pattern which is probably chronic. The patient is having also nasal congestion and plugging. No pleurisy. No hemoptysis. She has been utilizing her nebulizer on a regular basis. She is down to half pack of cigarette smoking on a daily basis. On today's evaluation of 11/17/2019 the patient is feeling slightly better compared to yesterday. She is currently being diuresed and she is making good urine output. She underwent an echocardiogram that showed moderate LVH, ejection fraction of 45-50%, grade 2 diastolic heart failure, there was also evidence of [id number] pulmonary hypertension with a PA pressure of 45. The IVC was dilated and there was no significant inspiratory collapse consistent with volume overload. The patient is currently receiving bronchodilators patient is on IV Solu-Medrol. She is on Lasix 40 mg IV push every 12 hours. Aldactone was also added to her regimen. Her weight is down. Today's evaluation of 11/18/2019 the patient is being seen in follow-up. The patient continues to feel better. The fluid balance over the past 24 hours has been -2.2 L and overall the patient has lost another kilograms since her last evaluation. She is still on IV Lasix and she is receiving 40 mg every 12 hours of IV Lasix and she is also on IV Solu-Medrol along with DuoNeb nebulized treatments around the clock. She has no specific complaints. Aldactone was added. No nausea. No vomiting. No diarrhea. No abdominal pain. She is a outpatient smoker. On 11/19/2019 patient seen in follow-up on the general medical floor, she is doing well, she is breathing much easier, fluid volume status has improved, less lower extremity edema, lung sounds are less bronchospastic and congested, pulse ox on 2 L is 97%, blood pressure stable, 126/89, patient is afebrile, she is receiving Lasix 40 mg every 12 hours, she is in -1410 mL over last 24 hours, today's labs have been reviewed, showing sodium 136, potassium is 4.3, chloride is 91, CO2 is 35, BUN is 37 creatinine 0.92. Yesterday we transitioned patient to oral prednisone. She continues on nebulized bronchodilators, no acute events overnight, and patient is being considered for discharge home today. Objective - Vital Signs Vital signs: Vital Signs Temp 97.7 F 11/19/19 07:00 Pulse 80 11/19/19 09:04 Resp 18 11/19/19 01:25 BP 126/86 11/19/19 07:00 Pulse Ox 97 11/19/19 07:00 Intake & Output 11/18/19 11/19/19 11/19/19 18:59 06:59 18:59 Intake Total 240 440 Output Total 1650 Balance -1410 440 Weight 110.3 kg Intake: Oral 240 440 Output: Urine 1650 Other: Voiding Method Toilet Toilet Toilet - Exam Obese, comfortable no acute distress, very pleasant, 44-year-old white female, on 2 L of oxygen with a pulse ox of 97% Head exam was generally normal. There was no scleral icterus or corneal arcus. Mucous membranes were moist. Neck was supple and without jugular venous distension, thyromegaly, or carotid bruits. Carotids were easily palpable bilaterally. There was no adenopathy. Lung sounds are diminished bilaterally along with scattered expiratory wheezes throughout the lung pulliam and crackles at lung bases Cardiac exam revealed the PMI to be normally situated and sized. The rhythm was regular and no extrasystoles were noted during several minutes of auscultation. The first and second heart sounds were normal and physiologic splitting of the second heart sound was noted. There were no murmurs, rubs, clicks, or gallops. Abdomen is obese organs cannot be accurately palpated. No direct tenderness abundance regarding Extremities revealed +1-2 pitting edema and there is no cyanosis or clubbing Neurologically awake and alert and is no focal neurological deficits. Examination of the skin revealed no evidence of significant rashes, suspicious appearing nevi or other concerning lesions. - Labs CBC & Chem 7: 11/15/19 18:35 11/19/19 08:43 Labs: Abnormal Lab Results - Last 24 Hours (Table) 11/18/19 11/18/19 11/18/19 Range/Units 12:01 12:18 16:44 Sodium (137-145) mmol/L Chloride 93 L (98-107) mmol/L Carbon Dioxide 38 H (22-30) mmol/L BUN 31 H (7-17) mg/dL Glucose 230 H (74-99) mg/dL POC Glucose (mg/dL) 226 H 169 H (75-99) mg/dL 11/18/19 11/19/19 11/19/19 Range/Units 20:24 07:17 08:43 Sodium 136 L (137-145) mmol/L Chloride 91 L (98-107) mmol/L Carbon Dioxide 35 H (22-30) mmol/L BUN 37 H (7-17) mg/dL Glucose 250 H (74-99) mg/dL POC Glucose (mg/dL) 120 H 163 H (75-99) mg/dL Assessment and Plan Plan: Assessment: 1 acute COPD exacerbation/acute bronchitis, improving 2 acute exacerbation of CHF. The patient has chronic heart failure with systolic dysfunction and ejection fraction of 40-45%. She has developed significant exertional dyspnea and orthopnea and lower extremity edema with an elevated proBNP level. She is in significant fluid overload and the patient has gained around 60 pounds. She is coming in for worsening shortness of breath. The patient is overall improving and the patient's diabetes including IV Lasix. She has lost considerable amount of weight. 3 Acute hypoxic respiratory failure 4 previous history of cardiomyopathy 5 hypertension 6 obesity 7 obstructive sleep apnea not receiving any treatment 8 Arnold-Chiari malformation 9 chronic left bundle branch block pattern on EKG 10 nephrolithiasis 11 history of convulsions/seizures 12 history of diverticulosis, colonic polyps and previous history of diverticulitis and hemorrhoids 13 chronic tobacco and marijuana smoker 14 diabetes mellitus Plan: Patient is doing well, breathing easier, fluid volume status has improved, vital signs are stable, maintaining negative fluid balance, presented activity as to lerated, anticipate discharge home today, she can follow up with Dr. Alcocer in the office and she has an appointment with him on November 24, she can continue nebulized treatments, and finish the prednisone taper I performed a history & physical examination of the patient and discussed their management with my nurse practitioner, Ana Becerril. I reviewed the nurse practitioner's note and agree with the documented findings and plan of care. Lung sounds are positive for diffuse wheezes throughout the lung pulliam. The findings and the impression was discussed with the patient. I attest to the documentation by the nurse practitioner. Time with Patient: Less than 30
--- NOTE | 2019-11-19 11:52 | P.PN ---
Subjective HISTORY OF PRESENTING ILLNESS This is a pleasant 44-year-old female past medical history significant for cardiomyopathy, hypertension, COPD, chronic diastolic heart failure, sleep apnea, chronic nicotine dependence and daily marijuana use. She does not follow in the office with a station operator for any reason. She is seen and examined sitting up in the bed eating lunch. She states she has been up all night using the bathroom and continues to have shortness of breath. Lower extremity swelling is improving but not completely resolved. Blood pressure 133/78 heart rate 74 afebrile and maintaining oxygen saturation on nasal ca nnula. Laboratory data reviewed, sodium 138, potassium 4.4, creatinine 0.83. Currently maintained on aspirin 81 mg daily, carvedilol 12.5 mg twice a day, Lasix 40 mg IV twice a day, losartan 25 mg daily, Aldactone 25 mg daily and verapamil 129 g twice a day. She is diuresing well with over 4000 cc urine output. 11/19/2019 Pt is seen and examined up ambulating back from the bathroom. She overall is feeling better from a breathing standpoint. Although she still does feel baseline short of breath and still using oxygen. Laboratory data reviewed, sodium 136, potassium 4.3, creatinine 0.92. Blood pressure 126/86 heart rate 78 afebrile maintaining oxygen saturation on nasal cannula. Currently maintained on Lasix 40 mg IV twice a day, carvedilol 12.5 mg twice a day, losartan 25 mg twice a day, Aldactone 25 mg daily and verapamil 120 mg twice a day. She is maintaining a negative fluid balance. We documentation is inaccurate. PHYSICAL EXAMINATION CONSTITUTIONAL: No apparent distress. HEENT: Head is normocephalic. Pupils are equal, round. Sclerae anicteric. Mucous membranes of the mouth are moist. No JVD. No carotid bruit. CHEST EXAMINATION: Bibasilar rales, expiratory wheezes, no rhonchi. No chest wall tenderness is noted on palpation or with deep breathing. HEART EXAMINATION: Regular rate and rhythm. S1, S2 heard. No murmurs, gallops or rub. EXTREMITIES: 2+ peripheral pulses, no lower extremity edema and no calf tenderness. ASSESSMENT Acute on chronic diastolic heart failure COPD Hypertension Chronic nicotine dependence PLAN Plan is for discharge today per the primary care team. Recommend close follow up in the office in 1-2 weeks. Advised her to follow a low salt diet and watch her weight daily. Elevate her feet when sitting or laying in bed. Nurse Practitioner note has been reviewed, I agree with a documented findings and plan of care. Patient was seen and examined. Objective - Vital Signs Vital signs: Vital Signs Temp 97.7 F 11/19/19 07:00 Pulse 80 11/19/19 09:04 Resp 18 11/19/19 01:25 BP 126/86 11/19/19 07:00 Pulse Ox 97 11/19/19 07:00 Intake & Output 11/18/19 11/19/19 11/19/19 18:59 06:59 18:59 Intake Total 240 440 Output Total 1650 Balance -1410 440 Weight 110.3 kg Intake: Oral 240 440 Output: Urine 1650 Other: Voiding Method Toilet Toilet Toilet - Labs CBC & Chem 7: 11/15/19 18:35 11/19/19 08:43 Labs: Abnormal Lab Results - Last 24 Hours (Table) 11/18/19 11/18/19 11/18/19 Range/Units 12:01 12:18 16:44 Sodium (137-145) mmol/L Chloride 93 L (98-107) mmol/L Carbon Dioxide 38 H (22-30) mmol/L BUN 31 H (7-17) mg/dL Glucose 230 H (74-99) mg/dL POC Glucose (mg/dL) 226 H 169 H (75-99) mg/dL 11/18/19 11/19/19 11/19/19 Range/Units 20:24 07:17 08:43 Sodium 136 L (137-145) mmol/L Chloride 91 L (98-107) mmol/L Carbon Dioxide 35 H (22-30) mmol/L BUN 37 H (7-17) mg/dL Glucose 250 H (74-99) mg/dL POC Glucose (mg/dL) 120 H 163 H (75-99) mg/dL
[2019-11-19 12:06] VITALS: PULSE 80
[2019-11-19 12:08] LABS: Glucose,Whole Blood 171 mg/dL (75-99)
--- NOTE | 2019-11-19 12:41 | P.DS ---
Providers Date of admission: 11/15/19 20:16 Expected date of discharge: 11/19/19 Attending physician: Adan Springer Consults: 11/16/19 09:25 Consult Physician Routine Consulting Provider: Kwame Alcocer Consult Reason/Comments: copd exac Do you want consulting provider notified?: Yes 11/16/19 09:34 Consult Physician Routine Consulting Provider: Elmo Rivera Consult Reason/Comments: CHF Do you want consulting provider notified?: Yes Primary care physician: [facility] Course: This is a 44-year-old female patient of Dr. Harvey with past medical history of COPD, diabetes mellitus type 2, diabetic neuropathy, hypertension, cardiomyopathy, obstructive sleep apnea without device, kidney stones, occipital neuritis, chronic headaches and seizures, hiatal hernia status post Cristy fundoplication, Chiari malformation status post craniotomy in 2012, tobacco use and dependence, daily marijuana use. Patient was last hospitalized in April 2019 which time she was treated for acute diastolic heart failure, acute exacerbation of COPD, hypertensive emergency. Patient did not follow-up with Dr. Rivera at that time. She states that she has an appointment with Dr. Alcocer in the near future. Patient gives history that she had difficulty breathing that started a few months ago. She complains of wheezing and cough. She also complains of fluid and weight gain. She is unable to lay flat. She complains of chest pressure. She denies having any fever or chills. Patient presented to [facility] emergency center for evaluation. She was afebrile, heart rate 91, blood pressure 131/88, pulse ox 96%. WBC 11, electrolytes within normal limits, hemoglobin 13.3, BUN 18 creatinine 0.73, blood sugar 118. Chest x-ray consistent with heart failure, possible small right pleural effusion. Cardiomegaly. Influenza testing negative. Liver function tests within normal limits. ProBNP 3000, lactic acid 1.8. Troponin 0.013. Patient admitted to the MedSurg floor, started on Nebulizer treatments, Solu-Medrol, Lasix 40 mg IV every 12 hours, echocardiogram. Consult added for Dr. Alcocer and cardiology. 11/17: Patient states that her breathing is much better today and the form of less wheezing and less coughing. She also states lower extremity edema is improved and she can especially feel it in her thighs and abdomen. Patient is currently on Solu-Medrol 40 g IV every 8 hours and Lasix 40 mg IV every 12 hours. Weight is down 1 kg. Repeat lab work reveals potassium 4.6, BUN 25 and creatinine 0.74, CO2 31. Blood sugars have been quite elevated running between 243 and 309. Triglycerides 108, cholesterol 161, LDL 93, HDL 46. Levemir and scheduled NovoLog added. The patient has been seen and followed by pulmonary medicine and cardiology. Aldactone has been started. Patient to continue another day of IV Lasix. Echocardiogram reveals EF of 45-50%, grade 2 diastolic heart failure, mild to moderate pulmonary hypertension. 11/18: Patient states that she continues to feel better respiratory parker. She states she is tired and her sleep is broken during the night. Overall she states her breathing is a lot better from the time she came in. Blood sugars continue to be elevated and hemoglobin A1c came back at 7.4. Patient has been tried on metformin in the past but due to diarrhea she is refusing to try it now. We will plan to start her and on Prandin 2 mg 3 times daily, manager of case management notified the patient will need glucometer and a walker has are been ordered for the patient. IV Solu-Medrol has been transitioned to oral prednisone for morning. Anticipate discharge home tomorrow. Long discussion with the patient regarding her need to be compliant with the current medications and follow-up with doctors appointments as scheduled when she leaves the hospital. Patient is tearful during this discussion but verbalizes understanding. 11/19: Patient overall is feeling better from a breathing standpoint. Although she still does feel baseline short of breath and still using oxygen. Oxygen has been discontinued by us and patient to be assessed for home oxygen need. Sodium 136, potassium 4.3, creatinine 0.92. Blood pressure 126/86 heart rate 78 afebrile. Patient has been transitioned to oral prednisone and Lasix will be transitioned to oral at a higher dose than her previous home. Patient has been cleared for discharge by consultants. Patient will be discharged home today in stable condition. Incentive spirometry recommended for home as well.. Discharge diagnoses: 1. Acute respiratory distress without respiratory failure secondary to a combination of acute on chronic diastolic heart failure and acute exacerbation of COPD, acute bronchitis. 2. Acute on chronic diastolic heart failure with history of cardiomyopathy. 3. Acute exacerbation of COPD, acute tracheobronchitis. 4. Chest pain, most likely secondary to musculoskeletal. 5. Hypertension. 6. Diabetes mellitus type 2, uncontrolled with hyperglycemia secondary to steroids. Hemoglobin A1c 7.4. 7. Diabetic neuropathy. 8. Obstructive sleep apnea. 9. History of Chiari malformation status post craniotomy in 2013, stable 10. Chronic headaches and seizure disorder under the care of jeff Smith. 11. Hiatal hernia status post Cristy fundoplication. 12. Active tobacco use and dependence. 13. Active marijuana use daily. Discharge plan: Home with [facility]. Glucometer has been provided by manager of case management. Impression and plan of care have been directed as dictated by the signing physician. Radha Garvey nurse practitioner acting as scribe for signing physician. Patient Condition at Discharge: Good Plan - Discharge Summary Discharge Rx Participant: No New Discharge Prescriptions: New Spironolactone [Aldactone] 25 mg PO DAILY #30 tab Aspirin 81 mg PO DAILY chew Losartan [Cozaar] 25 mg PO DAILY #30 tab Nicotine 14Mg/24Hr Patch [Habitrol] 1 patch TRANSDERM DAILY #30 patch Repaglinide [Prandin] 2 mg PO AC-TID #90 tab predniSONE 0 mg PO DIRECTED #30 tab Pantoprazole [Protonix] 40 mg PO AC-BRKFST #30 tablet. Furosemide [Lasix] 40 mg PO BID #60 tablet Continue Ipratropium Nebulized [Atrovent Nebulized 0.2 MG/ML] 0.5 vial INHALATION RT- QID Cromolyn Sodium 20 mg IH RT-QID PRN PRN Reason: Shortness Of Breath Carvedilol 12.5 mg PO BID Acetaminophen [Tylenol Extra Strength] 500 mg PO Q4H Verapamil HCl [Calan] 120 mg PO BID Discontinued Furosemide [Lasix] 20 mg PO BID PRN PRN Reason: Edema Discharge Medication List Acetaminophen [Tylenol Extra Strength] 500 mg PO Q4H 10/25/19 [History] Carvedilol 12.5 mg PO BID 10/25/19 [History] Cromolyn Sodium 20 mg IH RT-QID PRN 10/25/19 [History] Ipratropium Nebulized [Atrovent Nebulized 0.2 MG/ML] 0.5 vial INHALATION RT-QID 10/25/19 [History] Verapamil HCl [Calan] 120 mg PO BID 11/15/19 [History] Aspirin 81 mg PO DAILY chew 11/19/19 [Rx] Furosemide [Lasix] 40 mg PO BID #60 tablet 11/19/19 [Rx] Losartan [Cozaar] 25 mg PO DAILY #30 tab 11/19/19 [Rx] Nicotine 14Mg/24Hr Patch [Habitrol] 1 patch TRANSDERM DAILY #30 patch 11/19/19 [Rx] Pantoprazole [Protonix] 40 mg PO AC-BRKFST #30 tablet. 11/19/19 [Rx] Repaglinide [Prandin] 2 mg PO AC-TID #90 tab 11/19/19 [Rx] Spironolactone [Aldactone] 25 mg PO DAILY #30 tab 11/19/19 [Rx] predniSONE 0 mg PO DIRECTED #30 tab 11/19/19 [Rx] Follow up Appointment(s)/Referral(s): Presley De La Garza MD [STAFF PHYSICIAN] - 11/29/19 8:30 am (Arrive 15 minutes early to fill out paperwork) [facility] [NON-STAFF] - [facility], [NON-STAFF] - James Harvey DO [Primary Care Provider] - 11/25/19 9:30 am Elmo Rivera MD [STAFF PHYSICIAN] - 11/30/19 2:30 pm Activity/Diet/Wound Care/Special Instructions: [employer] will deliver a walker to the bedside before discharge. [employer] supply - [phone] - This is for your glucometer. I faxed all pertinent documents but if you don't hear from them by 11/26/2019, please call them. Free glucometer left with patient. You can purchase strips and lancets from [employer] or [employer]. Discharge Disposition: HOME WITH HOME HEALTH SERVICES
--- NOTE | 2019-11-24 17:38 | CDI ---
Documentation Clarification Form Date: 11/24/19 From: Beata Reeder CCS Phone: If you have a question about this query, please contact Lalita Leon, Law Firm Receptionist at [phone] between 8am and 5pm. Admit Date: 11/15/19 Discharge Date: 11/19/19 Patient Name: Sis Richards Visit Number: [id number] ATTENTION: The Clinical Documentation Specialists (CDI) and [facility] Coding Staff appreciate your assistance in clarifying documentation. Please respond to the clarification below the line at the bottom and electronically sign. The CDI & [facility] Coding staff will review the response and follow-up if needed. Please note: Queries are made part of the Legal Health Record. If you have any questions, please contact the author of this message via ITS. Dear Dr. Sommer, Conflicting documentation has been found in the medical record: Acute respiratory distress without respiratory failure has been documented in the H&P, PNs, DS Acute hypoxic respiratory failure has been documented in the PNs, Consult History/Risk Factors: COPD w/ Exac, A/C CHF, obesity BMI 45, MEHNAZ Clinical Indicators: Acute respiratory distress Vitals: RR 20, UT 91, BP 131/88, O2 Sat 96, 95 Treatment: O2 Nasal Cannula 2 lpm, Hand Nebulizer In your opinion, what is the most clinically appropriate diagnosis for this patient? Acute hypoxic respiratory failure Acute respiratory distress Other explanation of clinical findings Unable to determine (no explanation for clinical findings) MTDD
--- NOTE | 2019-11-29 14:02 | CDI ---
Documentation Clarification Form Date: 11/29/19 From: Beata Reeder CCS Phone: If you have a question about this query, please contact Lalita Leon, Plant Nursery Worker at [phone] between 8am and 5pm. Admit Date: 11/15/19 Discharge Date: 11/19/19 Patient Name: Sis Richards Visit Number: [id number] ATTENTION: The Clinical Documentation Specialists (CDI) and [facility] Coding Staff appreciate your assistance in clarifying documentation. Please respond to the clarification below the line at the bottom and electronically sign. The CDI & [facility] Coding staff will review the response and follow-up if needed. Please note: Queries are made part of the Legal Health Record. If you have any questions, please contact the author of this message via ITS. Dear Dr. Sommer, Conflicting documentation has been found in the medical record: Acute respiratory distress without respiratory failure has been documented in the H&P, PNs, DS Acute hypoxic respiratory failure has been documented in the PNs, Consult History/Risk Factors: COPD w/ Exac, A/C CHF, obesity BMI 45, MEHNAZ Clinical Indicators: Acute respiratory distress Vitals: RR 20, NC 91, BP 131/88, O2 Sat 96, 95 Treatment: O2 Nasal Cannula 2 lpm, Hand Nebulizer In your opinion, what is the most clinically appropriate diagnosis for this patient? Acute hypoxic respiratory failure Acute respiratory distress Other explanation of clinical findings Unable to determine (no explanation for clinical findings) MTDD
== END 2019-11-19 15:03 | disposition home health service (06) | DRG 292 ==
LOC: EC 17:56 → 6NMEDSUR 20:16 → 4SSUR 23:35
PROVIDERS: ADMIT Internal Medicine; ATTEND Internal Medicine
DX: I11.0 Hypertensive heart disease with heart failure (principal); J44.1 Chronic obstructive pulmonary disease with (acute) exacerbation; R45.851 Suicidal ideations; J44.0 Chronic obstructive pulmonary disease with (acute) lower respiratory infection; Z68.42 Body mass index [BMI] 45.0-49.9, adult; I27.20 Pulmonary hypertension, unspecified; E11.40 Type 2 diabetes mellitus with diabetic neuropathy, unspecified; I50.43 Acute on chronic combined systolic (congestive) and diastolic (congestive) heart failure; J20.9 Acute bronchitis, unspecified; E11.65 Type 2 diabetes mellitus with hyperglycemia; G47.33 Obstructive sleep apnea (adult) (pediatric); G40.909 Epilepsy, unspecified, not intractable, without status epilepticus; F17.210 Nicotine dependence, cigarettes, uncomplicated; K21.9 Gastro-esophageal reflux disease without esophagitis; E66.9 Obesity, unspecified; I44.7 Left bundle-branch block, unspecified; K57.90 Diverticulosis of intestine, part unspecified, without perforation or abscess without bleeding; I08.1 Rheumatic disorders of both mitral and tricuspid valves; R06.03 Acute respiratory distress; T38.0X5A Adverse effect of glucocorticoids and synthetic analogues, initial encounter; Z71.6 Tobacco abuse counseling; Z71.3 Dietary counseling and surveillance; Z87.01 Personal history of pneumonia (recurrent); Z87.11 Personal history of peptic ulcer disease; Z86.79 Personal history of other diseases of the circulatory system; Z87.19 Personal history of other diseases of the digestive system; Z98.890 Other specified postprocedural states; Z86.010 Personal history of colon polyps; Z87.442 Personal history of urinary calculi; Z90.49 Acquired absence of other specified parts of digestive tract; Z90.79 Acquired absence of other genital organ(s); Z90.721 Acquired absence of ovaries, unilateral; Z79.899 Other long term (current) drug therapy; Z88.5 Allergy status to narcotic agent; Z88.8 Allergy status to other drugs, medicaments and biological substances; Z91.018 Allergy to other foods; Z83.3 Family history of diabetes mellitus; Z82.49 Family history of ischemic heart disease and other diseases of the circulatory system; Z80.0 Family history of malignant neoplasm of digestive organs; Z80.1 Family history of malignant neoplasm of trachea, bronchus and lung
CPT/HCPCS: 36415; 71046; 80048; 80053; 80061; 83036; 83605; 83735; 83880; 84484; 85025; 85610; 85730; 87502; 93005; 93306; 94640; 94644; 94760; 96374; 96375; 99285

== ENCOUNTER 2021-09-06 05:27 | Inpatient (IN) | payer OTHER ==
[2021-09-06] MEDS ORDERED: DILTIAZEM DRIP BOLUS FROM BAG 1 MG SOLN IV ONE (05:55)
[2021-09-06] MEDS ORDERED: NITROGLYCERIN SL TABS 0.4 MG TAB SUBLINGUAL STA (05:55)
[2021-09-06] MEDS ORDERED: ASPIRIN 81 MG PO STA (05:55)
[2021-09-06] MEDS ORDERED: DILTIAZEM 125 MG in SODIUM CHLORIDE 0.9% 100 ML IV SCH (06:00)
[2021-09-06 06:02] LABS: Basophils # (A) 0.1 k/uL (0-0.2); Basophils % (A) 1 %; Eosinophils # (A) 0.4 k/uL (0-0.7); Eosinophils % (A) 3 %; HCT 48.5 % (34.0-46.0); HGB 15.4 gm/dL (11.4-16.0); Lymphocytes # (A) 3.2 k/uL (1.0-4.8); Lymphocytes % (A) 22 %; MCH 29.3 pg (25.0-35.0); MCHC 31.7 g/dL (31.0-37.0); MCV 92.4 fL (80.0-100.0); Mean Platelet Volume 7.5; Monocytes # (A) 0.8 k/uL (0-1.0); Monocytes % (A) 5 %; Neutrophils # (A) 9.7 k/uL (1.3-7.7); Neutrophils % (A) 68 %; Platelet Count 273 k/uL (150-450); RBC 5.25 m/uL (3.80-5.40); RDW 15.6 % (11.5-15.5); WBC 14.3 k/uL (3.8-10.6)
[2021-09-06 06:15] LABS: ALT 18 U/L (4-34); AST 20 U/L (14-36); African American GFR (CKD) >90 (>60 ml/min/1.73 sqM); Albumin 3.6 g/dL (3.5-5.0); Alkaline Phosphatase 86 U/L (38-126); Anion Gap 5 mmol/L; Blood Urea Nitrogen 19 mg/dL (7-17); Calcium 9.4 mg/dL (8.4-10.2); Carbon Dioxide 25 mmol/L (22-30); Chloride 106 mmol/L (98-107); Glucose 175 mg/dL (74-99); Magnesium 1.8 mg/dL (1.6-2.3); Non-African American GFR(CKD) >90 (>60 ml/min/1.73 sqM); Potassium 4.6 mmol/L (3.5-5.1); Sodium 136 mmol/L (137-145); Total Bilirubin 0.4 mg/dL (0.2-1.3); Total Protein 6.2 g/dL (6.3-8.2)
--- NOTE | 2021-09-06 06:15 | XR ---
EXAMINATION TYPE: XR chest 2V DATE OF EXAM: 09/06/2021 COMPARISON: 11/29/2019 HISTORY: Cough TECHNIQUE: 2 view FINDINGS: Heart is enlarged. There is no heart failure. Costophrenic angles are clear. There are no h ilar masses. There are chest leads. Bony thorax is intact. IMPRESSION: No active cardiopulmonary disease. No adverse change
[2021-09-06] MEDS ORDERED: VERAPAMIL SR 120 MG TABLET.ER PO STA (06:17)
[2021-09-06 06:19] LABS: Partial Thromboplastin Time 22.2 sec (22.0-30.0); Prothrombin Time 10.8 sec (9.0-12.0)
--- NOTE | 2021-09-06 07:29 | ED ---
Chest Pain HPI - General Chief Complaint: Chest Pain Stated Complaint: Chest pain Time Seen by Provider: 09/06/21 05:41 Source: patient Mode of arrival: ambulatory Limitations: no limitations - History of Present Illness Initial Comments: This patient is a 46-year-old woman, with history of previous cardiomyopathy which appeared to be related, COPD, hypertension and CHF, who presents to be evaluated for chest pain and dyspnea. Patient states that things developed around 1 AM, while she was watching television. She noticed chest pain that was present all across the upper chest. She described it as sharp, aching pain. She did not notice any worsening or relieving factors. Patient states she smokes approximately 2 packs of cigarettes per day MD Complaint: chest pain Onset/Timin -: hour(s) Onset: during rest Pain Location: left chest, right chest Pain Radiation: none Severity: severe Quality: aching Consistency: constant Improves With: nothing Worsens With: nothing Anginal Symptoms: dyspnea Other Symptoms: palpitations Treatments Prior to Arrival: none - Related Data On Oral Contraceptives: No Home Medications Medication Instructions Recorded Confirmed Acetaminophen [Tylenol Extra 500 mg PO Q4H 10/25/19 11/15/19 Strength] Cromolyn Sodium 20 mg IH RT-QID PRN 10/25/19 11/15/19 Ipratropium Nebulized [Atrovent 0.5 vial INHALATION RT-QID 10/25/19 11/15/19 Nebulized 0.2 MG/ML] carvediloL 12.5 mg PO BID 10/25/19 11/15/19 Verapamil HCl [Calan] 120 mg PO BID 11/15/19 11/15/19 Previous Rx's Medication Instructions Recorded Aspirin 81 mg PO DAILY chew 11/19/19 Furosemide [Lasix] 40 mg PO BID #60 tablet 11/19/19 Losartan [Cozaar] 25 mg PO DAILY #30 tab 11/19/19 Nicotine 14Mg/24Hr Patch [Habitrol] 1 patch TRANSDERM DAILY #30 patch 11/19/19 Pantoprazole [Protonix] 40 mg PO AC-BRKFST #30 tablet. 11/19/19 Repaglinide [Prandin] 2 mg PO AC-TID #90 tab 11/19/19 Spironolactone [Aldactone] 25 mg PO DAILY #30 tab 11/19/19 predniSONE 0 mg PO DIRECTED #30 tab 11/19/19 Allergies Allergy/AdvReac Type Severity Reaction Status Date / Time pregabalin [From Lyrica] Allergy Unknown Unknown Verified 09/06/21 05:33 acetylcysteine Allergy Swelling Verified 09/06/21 05:33 hydromorphone HCl Allergy headache Verified 09/06/21 05:33 [From Dilaudid] BERRIES Allergy Anaphylaxis Uncoded 09/06/21 05:33 Review of Systems ROS Statement: Those systems with pertinent positive or pertinent negative responses have been documented in the HPI. ROS Other: All systems not noted in ROS Statement are negative. Constitutional: Denies: fever, chills, weakness Respiratory: Reports: cough, dyspnea. Denies: wheezes, hemoptysis Cardiovascular: Reports: chest pain, palpitations, orthopnea. Denies: edema, syncope Gastrointestinal: Denies: abdominal pain, nausea, vomiting, diarrhea Genitourinary: Denies: dysuria, hematuria Musculoskeletal: Denies: back pain Skin: Denies: rash Neurological: Denies: headache, weakness, numbness EKG Findings - EKG Results: EKG: interpreted by ERMD EKG shows: atrial fibrillation (Rate is approximately 136 bpm) - Blocks, [place], Hypertrophy, ST Abn: AV and intraventricular conduction: intraventricular conduction delay Past Medical History Past Medical History: Heart Failure, COPD, GERD/Reflux, Hypertension, Seizure Disorder, Sleep Apnea/CPAP/BIPAP Additional Past Medical History / Comment(s): mult kidney stones, HX pneumonia /vented-2011, peptic ulcers, Sleep apnea-no device currently, bilateral occipital neuritis, headaches, vertigo, neuropathy;"legs give out at times". States has "convulsions" "I get numb,fall asleep,and shake, but I'm aware of my surroundings" hx of diverticulitis and colon polyps, hemmorhoids History of Any Multi-Drug Resistant Organisms: None Reported Past Surgical History: Cholecystectomy, Hernia Repair Additional Past Surgical History / Comment(s): brain surgery 2013 for seizures & headaches, Right ovary/tube removed 2009, D&C, Picc line insertion since removed, Kidney stone surgically removed & lithotripsy., Laproscopic Cristy Fundoplasty. Colonoscopy, Past Anesthesia/Blood Transfusion Reactions: No Reported Reaction, Motion Sickness Past Psychological History: No Psychological Hx Reported Smoking Status: Current every day smoker Past Alcohol Use History: Rare Past Drug Use History: Marijuana - Past Family History Father Family Medical History: AFIB, Diabetes Mellitus, Hypertension Additional Family Medical History / Comment(s): Father is alive at age 67 with history of atrial fibrillation, diabetes, hypertension, pacemaker. Mother Family Medical History: Cancer Additional Family Medical History / Comment(s): Mother of pancreatic cancer at the age of 58yrs. Maternal cousin had pancreatic cancer. Maternal uncle had lung cancer. Sister(s) Family Medical History: AICD/Pacemaker Additional Family Medical History / Comment(s): the patient has one sister with AICD. Second sister has no major medical problems. Patient's 1 brother that is healthy. Patient has one son and one daughter with no major medical problems. General Exam Limitations: no limitations General appearance: alert, in distress Head exam: Present: atraumatic, normocephalic Eye exam: Present: normal appearance. Absent: scleral icterus, conjunctival injection Neck exam: Present: normal inspection Respiratory exam: Present: normal lung sounds bilaterally, respiratory distress (Mild tachypnea). Absent: wheezes, rales, rhonchi, stridor Cardiovascular Exam: Present: tachycardia, irregular rhythm, normal heart sounds. Absent: systolic murmur, diastolic murmur, rubs, gallop GI/Abdominal exam: Present: soft, distended Extremities exam: Present: normal inspection, normal capillary refill. Absent: pedal edema, calf tenderness Back exam: Present: normal inspection. Absent: CVA tenderness (R), CVA tenderness (L) Neurological exam: Present: alert Skin exam: Present: warm, dry, intact, normal color. Absent: rash Course Vital Signs 09/06/21 09/06/21 05:30 06:36 Temperature 98.5 F Pulse Rate 84 90 Respiratory 22 16 Rate Blood Pressure 117/87 151/82 O2 Sat by Pulse 96 96 Oximetry Chest Pain [facility] Patient is a 46-year-old woman presenting with nearly 5 hours of chest pain, palpitations and dyspnea. Patient appears to be in new onset of atrial fibrillation with a rapid ventricular rate. EKG does again show intraventricular block which is old. Disposition Clinical Impression: Chest pain, Atrial fibrillation with rapid ventricular response Disposition: ADMITTED IP TO THIS HOSP Condition: Serious Referrals: James Harvey DO [Primary Care Provider] - 1-2 days
[2021-09-06] MEDS ORDERED: NITROGLYCERIN SL TABS 0.4 MG TAB SUBLINGUAL PRN (07:30)
[2021-09-06] MEDS ORDERED: ENOXAPARIN 100 MG/ML SYRINGE SQ STA (07:32)
[2021-09-06] MEDS ORDERED: METOPROLOL TARTRATE 12.5 MG TAB PO SCH (09:15)
[2021-09-06] MEDS: SODIUM CHLORIDE 0.9% 1,000 ML IV SCH (11:02)
[2021-09-06] MEDS: ASPIRIN 81 MG PO SCH (11:03)
[2021-09-06] MEDS: ATORVASTATIN 20 MG TAB PO SCH (11:03)
--- NOTE | 2021-09-06 11:23 | P.CNPUL ---
History of Present Illness Consult date: 09/06/21 Requesting physician: Brennan Jeong Reason for consult: dyspnea Chief complaint: Chest pain, cough History of present illness: This is a 46-year-old female patient with a known history of obesity, h yperlipidemia, diabetes mellitus, chronic obstructive pulmonary disease with previous FEV1 value of 64% of predicted, maintained on Advair and pro-air, chronic and ongoing tobacco dependence of 30+ years at 1-2 packs per day, hypertension, diastolic congestive heart failure, mildly impaired left lauryn tricular systolic function with ejection fraction 45-50%, moderate pulmonary hypertension, Chiari malformation with previous craniotomy in 2013, previous Niesen fundoplication. She had recently been complaining of increasing shortness of breath, cough and congestion. She was treated with antibiotics and prednisone in the outpatient setting. She came into the emergency room early today after developing anterior chest pain radiating across the front of her chest well sitting up watching TV at 1:00 this morning. She was found to be in atrial fibrillation with a rapid ventricular response. Chest x-ray revealed no acute cardiopulmonary process. Noted cardiomegaly. White count 14.3. Hemogl obin 15.4. Sodium 136. Potassium 4.6. Creatinine 0.71. Glucose 175. Bean virus not detected. She is seen today in consultation in the emergency room. She is currently sitting up in a stretcher. Awake and alert in no acute distress. She has a currently a dry nonproductive cough. Her chest discomfort has subsided. She is back in a sinus rhythm. She has been initiated on calcium channel blockers and beta blockers. Lovenox at 90 mg subcu every 12 hours per cardiology. 0.9 normal saline at 75 ML's per hour. Review of Systems REVIEW OF SYSTEMS: CONSTITUTIONAL: Denies any recent significant weight loss or weight gain. EYES: Denies change in vision. EARS, NOSE, MOUTH, THROAT: Denies headaches, denies sore throat. CARDIOVASCULAR: Positive for chest pain, palpitations no syncopal episodes. RESPIRATORY: Positive for shortness of breath, cough, congestion no hemoptysis. GASTROINTESTINAL: Denies change in appetite, denies abdominal pain GENITOURINARY: Denies hematuria, denies infections. MUSKULOSKELETAL: Denies pain, denies swelling. INTEGUMENTARY: Denies rash, denies eczema. NEUROLOGICAL: Denies recent memory loss, no recent seizure activity. PSYCHIATRIC: Denies anxiety, denies depression. HEMATOLOGIC/LYMPHATIC: Denies anemia, denies enlarged lymph nodes. Past Medical History Past Medical History: Heart Failure, COPD, GERD/Reflux, Hypertension, Seizure Disorder, Sleep Apnea/CPAP/BIPAP Additional Past Medical History / Comment(s): mult kidney stones, HX pneumonia /vented-2011, peptic ulcers, Sleep apnea-no device currently, bilateral occipital neuritis, headaches, vertigo, neuropathy;"legs give out at times". States has "convulsions" "I get numb,fall asleep,and shake, but I'm aware of my surroundings" hx of diverticulitis and colon polyps, hemmorhoids History of Any Multi-Drug Resistant Organisms: None Reported Past Surgical History: Cholecystectomy, Hernia Repair Additional Past Surgical History / Comment(s): brain surgery 2012 for seizures & headaches, Right ovary/tube removed 2009, D&C, Picc line insertion since removed, Kidney stone surgically removed & lithotripsy., Laproscopic Cristy Fundoplasty. Colonoscopy, Past Anesthesia/Blood Transfusion Reactions: No Reported Reaction, Motion Sickness Past Psychological History: No Psychological Hx Reported Smoking Status: Current every day smoker Past Alcohol Use History: Rare Past Drug Use History: Marijuana - Past Family History Father Family Medical History: AFIB, Diabetes Mellitus, Hypertension Additional Family Medical History / Comment(s): Father is alive at age 67 with history of atrial fibrillation, diabetes, hypertension, pacemaker. Mother Family Medical History: Cancer Additional Family Medical History / Comment(s): Mother of pancreatic cancer at the age of 58yrs. Maternal cousin had pancreatic cancer. Maternal uncle had lung cancer. Sister(s) Family Medical History: AICD/Pacemaker Additional Family Medical History / Comment(s): the patient has one sister with AICD. Second sister has no major medical problems. Patient's 1 brother that is healthy. Patient has one son and one daughter with no major medical problems. Medications and Allergies Home Medications Medication Instructions Recorded Confirmed Type Albuterol Sulfate [Proair Hfa] 2 puff INHALATION RT-Q6H PRN 09/06/21 09/06/21 History Aspirin 81 mg PO DAILY@1700 09/06/21 09/06/21 History Carvedilol [Coreg] 25 mg PO BID@0900,1700 09/06/21 09/06/21 History Fluticasone/Salmeterol [Advair 2 puff INHALATION RT-BID 09/06/21 09/06/21 History 500-50 Diskus] Furosemide [Lasix] 40 mg PO BID@0900,1700 09/06/21 09/06/21 History Ipratropium-Albuterol Nebulize 3 ml INHALATION RT-Q6H PRN 09/06/21 09/06/21 History [Duoneb 0.5 mg-3 mg/3 ml Soln] Losartan Potassium 50 mg PO DAILY@0900 09/06/21 09/06/21 History Potassium Chloride ER [K-Dur 20] 20 meq PO BID@0900,209909/06/21 09/06/21 History Rizatriptan Benzoate [Rizatriptan] 10 mg PO DAILY PRN 09/06/21 09/06/21 History Simvastatin [Zocor] 10 mg PO HS@2100 09/06/21 09/06/21 History glipiZIDE [Glucotrol] 5 mg PO DAILY@17009/06/21 09/06/21 History predniSONE [Deltasone] 20 mg PO TID 09/06/21 09/06/21 History Allergies Allergy/AdvReac Type Severity Reaction Status Date / Time pregabalin [From Lyrica] Allergy Unknown Unknown Verified 09/06/21 08:13 acetylcysteine Allergy Swelling Verified 09/06/21 08:13 hydromorphone HCl Allergy headache Verified 09/06/21 08:13 [From Dilaudid] BERRIES Allergy Anaphylaxis Uncoded 09/06/21 05:33 Physical Exam Vitals: Vital Signs Temp Pulse Resp BP Pulse Ox 09/06/21 09:49 73 20 153/93 94 L 09/06/21 06:36 90 16 151/82 96 09/06/21 05:30 98.5 F 84 22 117/87 96 Intake and Output 09/05/21 09/06/21 09/06/21 22:59 06:59 14:59 Other: Weight 103.419 kg GENERAL EXAM: Alert, obese 46-year-old female patient, on room air, comfortable in no apparent distress. HEAD: Normocephalic. EYES: Normal reaction of pupils, equal size. NOSE: Clear with pink turbinates. THROAT: No erythema or exudates. NECK: No masses, no JVD. CHEST: No chest wall deformity. LUNGS: Equal air entry with no crackles, wheeze, rhonchi or dullness. CVS: S1 and S2 normal with no audible murmur, regular rhythm. ABDOMEN: No hepatosplenomegaly, normal bowel sounds, no guarding or rigidity. SPINE: No scoliosis or deformity SKIN: No rashes CENTRAL NERVOUS SYSTEM: No focal deficits, tone is normal in all 4 extremities. EXTREMITIES: There is trace peripheral edema. No clubbing, no cyanosis. Peripheral pulses are intact. Results - Laboratory Findings CBC and BMP: 09/06/21 05:46 09/06/21 05:46 PT/INR, D-dimer PT 10.8 sec (9.0-12.0) 09/06/21 05:46 INR 1.0 (<1.2) 09/06/21 05:46 Abnormal lab findings: Abnormal Labs 09/06/21 09/06/21 05:46 05:46 WBC 14.3 H Hct 48.5 H RDW 15.6 H Neutrophils # 9.7 H Sodium 136 L BUN 19 H Glucose 175 H Total Protein 6.2 L - Diagnostic Findings Chest x-ray: image reviewed Assessment and Plan Assessment: 1 Chest pain suspect secondary to atrial fibrillation with a rapid ventricular response 2 Atrial fibrillation with a rapid ventricular response, currently in sinus rhythm 3 Recent upper respiratory infection being treated with antibiotics and prednisone in the outpatient setting. CoVID screen negative. 4 Acute exacerbation of chronic obstructive pulmonary disease secondary to above and no evidence of pneumonia 5 Chronic and ongoing tobacco dependence of 30 years at 1-2 packs per day 6 Obesity 7 History of Chiari malformation requiring craniotomy in 2013 8 History of diastolic congestive heart failure 9 Hypertension 10 Diabetes mellitus 11 Diabetic neuropathy 12 Hyperlipidemia 13 Previous Cristy fundoplication Plan: The patient was seen and evaluated by Dr. De La Garza Chest x-ray reveals no evidence of pneumonia Add Symbicort, albuterol Add doxycycline empirically, check pro calcitonin Continue antiarrhythmics Cama anticoagulants per cardiology Echocardiogram pending Educated regarding importance of complete smoking cessation NicoDerm patch will be offered We will continue to follow and make further recommendations based on her clinical status I, the cosigning physician, performed a history & physical examination of the patient. Lungs sounds are clear, minutes. Maintaining good O2 saturations in the 90s on room air. I discussed the assessment and plan of care with my nurse practitioner, Delicia Adkins. I attest to the above consultation as dictated by her. Time with Patient: Greater than 30
--- NOTE | 2021-09-06 11:59 | CONS ---
CONSULTATION This is a 46-year-old lady with a questionable history of cardiomyopathy, details of which are rather sketchy and unavailable. She smokes 2 packs a day, has hypertension and sees Dr. Alcocer from a pulmonary standpoint. Her primary care physician is Dr. Harvey. She recently had an exacerbation of COPD and has been placed on steroids and antibiotics. She came into the hospital mostly because of having an episode of what she described as a rapid heart rate. She checked her blood pressure over her wrist and noted the heart rate was in the 160 range. She also felt some tightness and pressure across the chest with the elevated heart rate. This lasted for a few minutes after arrival. EKG initially revealed atrial fibrillation, but now she is back in sinus rhythm. She smokes 2 packs a day and seems to be recovering from a bout of acute bronchitis lately. She has no documented evidence of CAD in the past. Past medical history remarkable for cardiomyopathy during , details unclear. She also has obstructive sleep apnea, wears a CPAP. She has hypertension, type 2 diabetes, and also hyperlipidemia. At the time of my evaluation, she is more comfortable. She has no chest pain or shortness of breath at rest. She is status post lithotripsy for kidney stones. She had a fundoplication surgery, colonoscopy, and also had some ovariotomy, details unavailable. MEDICATIONS: Medications at home include prednisone, she is taking a tapering dose, Aldactone, Prandin, Protonix, Cozaar 25 mg daily, Lasix 40 mg b.i.d., aspirin 81 mg daily, and she also takes the Coreg 12.5 mg b.i.d., verapamil 120 mg daily. ALLERGIES: ALLERGIC TO ACETYLCYSTEINE, DILAUDID. PHYSICAL EXAMINATION: On examination, blood pressure is 140/70, pulse rate is about 70 regular HEENT unremarkable. Fundus was not examined by me. NECK is supple. There is 1 cm JVD. No carotid bruit. HEART exam reveals S1, S2 heard normally. There is a short systolic murmur at the base. Second heart sound is well preserved. LUNGS reveal bilateral scattered rhonchi with diminished air entry. ABDOMEN is soft, nontender. Lower EXTREMITIES reveal diminished pulses. CENTRAL NERVOUS SYSTEM grossly within normal limits. EKG on arrival revealed atrial fibrillation with underlying IVCD and moderately rapid ventricular rate. Repeat EKG revealed a sinus mechanism with underlying IVCD and ST-T changes. LABORATORY DATA: Reveals initial troponin is 0.03. Her renal function is normal. Hemoglobin is normal. White count is elevated but patient is on steroids. Chest x-ray did not reveal any significant abnormalities. IMPRESSION: 1. Paroxysmal atrial fibrillation in a patient with significant risk factors. 2. Acute bronchitis/exacerbation of chronic obstructive pulmonary disease. 3. History of smoking. 4. Question of cardiomyopathy unsubstantiated information so far. 5. History of diabetes. 6. Benign hypertension. RECOMMENDATIONS: I am recommending that given her multiple risk factors and atrial fibrillation, she will need to be anticoagulated. We will for now continue Lovenox at 90 mg subcu q.12 hours, metoprolol 12.5 mg b.i.d., verapamil SR 120 mg daily and also we can discontinue the diltiazem drip, atorvastatin would be 20 mg, aspirin 81 mg. Based on clinical course, we will make further recommendations. We will obtain additional levels of troponin as well. I will also check a BNP. Advised the patient regarding smoking cessation. We will request Pulmonary evaluation as well. The patient also has underlying obstructive sleep apnea and wears a CPAP. Thank you very much for the consult. MMODL / IJN: [id number] /
--- NOTE | 2021-09-06 12:28 | ECHOF ---
Referral Reason:LV function MEASUREMENTS -------- HEIGHT: 154.9 cm WEIGHT: 103.4 kg BP: 151/82 RVIDd: 3.9 cm (< 3.3) IVSd: 1.3 cm (0.6 - 1.1) LVIDd: 4.9 cm (3.9 - 5.3) LVPWd: 1.5 cm (0.6 - 1.1) IVSs: 1.5 cm LVIDs: 3.8 cm LVPWs: 1.7 cm LAESV Index (A-L): 58.50 ml/m Ao Diam: 3.1 cm (2.0 - 3.7) AV Cusp: 2.3 cm (1.5 - 2.6) LA Diam: 4.4 cm (2.7 - 3.8) MV EXCURSION: 14.703 mm (> 18.000) MV EF SLOPE: 76 mm/s (70 - 150) EPSS: 1.2 cm MV E Aravind: 1.12 m/s MV DecT: 260 ms MV A Aravind: 0.71 m/s MV E/A Ratio: 1.59 RAP: 5.00 mmHg RVSP: 24.27 mmHg FINDINGS -------- Sinus rhythm. This was a technically adequate study. The left ventricular size is normal. There is moderate concentric left ventricular hypertrophy. O verall left ventricular systolic function is mild-moderately impaired with, an EF between 40 - 45 %. Global hypokinesis The right ventricle is mildly enlarged. LA is severely dilated >40 ml/m2 The right atrial size is normal. Interatrial and interventricular septum intact. There is no evidence of aortic regurgitation. There is no evidence of aortic stenosis. Moderate mitral regurgitation is present. Mild tricuspid regurgitation present. There is no evidence of pulmonary hypertension. The right v entricular systolic pressure, as measured by Doppler, is 24.27mmHg. The pulmonic valve was not well visualized. The aortic root size is normal. IVC Not well visulized. There is a trivial pericardial effusion present. CONCLUSIONS -------- 1. The left ventricular size is normal. 2. There is moderate concentric left ventricular hypertrophy. 3. Overall left ventricular systolic function is mild-moderately impaired with, an EF between 40 - 45 %. 4. The right ventricle is mildly enlarged. 5. LA is severely dilated >40 ml/m2 6. Moderate mitral regurgitation is present. 7. Mild tricuspid regurgitation present. 8. There is a trivial pericardial effusion present. BUILDING INSPECTION ENGINEER: Leny Hickey RDCS
[2021-09-06] MEDS: DOXYCYCLINE 100 MG CAP PO SCH ×3 (13:49→22:34)
[2021-09-06] MEDS: ALBUTEROL NEBULIZED 2.5 MG/3 ML INHALATION SCH ×4 (15:40→20:26)
[2021-09-06] MEDS: INSULIN ASPART (NovoLOG) 100 UNIT/ML VIAL SQ SCH ×3 (16:21→21:09)
[2021-09-06] MEDS ORDERED: FUROSEMIDE 40 MG TAB PO SCH (17:00)
[2021-09-06] MEDS: NICOTINE 14MG/24HR PATCH TRANSDERM SCH (17:25)
[2021-09-06 18:17] LABS: Glucose,Whole Blood 90 mg/dL (75-99)
[2021-09-06] MEDS ORDERED: SUMAtriptan succinate 50 MG TAB PO PRN (20:17)
[2021-09-06] MEDS ORDERED: IPRATROPIUM-ALBUTEROL 3 ML NEB INHALATION PRN (20:17)
[2021-09-06] MEDS ORDERED: ALBUTEROL NEBULIZED 2.5 MG/3 ML INHALATION PRN (20:17)
[2021-09-06] MEDS: SYMBICORT 160-4.5 MCG INHALER INHALATION SCH (20:26)
[2021-09-06 20:59] LABS: Glucose,Whole Blood 114 mg/dL (75-99)
[2021-09-06] MEDS ORDERED: ATORVASTATIN 10 MG TAB PO SCH (21:00)
[2021-09-06] MEDS ORDERED: carvediloL 12.5 MG TAB PO SCH (21:00)
[2021-09-06] MEDS ORDERED: ENOXAPARIN 100 MG/ML SYRINGE SQ SCH (21:00)
[2021-09-06] MEDS: methylPREDNISolone SOD SUCCI 125 MG/2 ML VIAL IV SCH (22:07)
[2021-09-06] MEDS: POTASSIUM CHLORIDE ER 20 MEQ TAB.ER PO SCH (22:34)
[2021-09-07] MEDS: ACETAMINOPHEN TAB 325 MG TAB PO PRN ×2 (01:20→17:20)
[2021-09-07] MEDS: methylPREDNISolone SOD SUCCI 125 MG/2 ML VIAL IV SCH ×4 (01:20→17:16)
[2021-09-07] MEDS: SODIUM CHLORIDE 0.9% 1,000 ML IV SCH ×2 (03:11→12:43)
[2021-09-07 06:43] LABS: Glucose,Whole Blood 170 mg/dL (75-99)
[2021-09-07] MEDS: INSULIN ASPART (NovoLOG) 100 UNIT/ML VIAL SQ SCH ×4 (06:51→22:39)
[2021-09-07] MEDS ORDERED: FLUTICASONE INHALATION SCH (08:00)
[2021-09-07] MEDS ORDERED: SALMETEROL INHALATION SCH (08:00)
[2021-09-07 08:16] LABS: HCT 47.5 % (34.0-46.0); HGB 14.7 gm/dL (11.4-16.0); Hypochromasia Slight; MCV 93.5 fL (80.0-100.0); Mean Platelet Volume 7.6; Platelet Count 253 k/uL (150-450); RBC 5.09 m/uL (3.80-5.40); RDW 15.5 % (11.5-15.5); WBC 9.8 k/uL (3.8-10.6)
[2021-09-07 08:36] LABS: ALT 19 U/L (4-34); AST 20 U/L (14-36); African American GFR (CKD) >90 (>60 ml/min/1.73 sqM); Albumin 3.6 g/dL (3.5-5.0); Alkaline Phosphatase 61 U/L (38-126); Anion Gap 4 mmol/L; Blood Urea Nitrogen 20 mg/dL (7-17); Calcium 9.3 mg/dL (8.4-10.2); Carbon Dioxide 26 mmol/L (22-30); Chloride 105 mmol/L (98-107); Glucose 175 mg/dL (74-99); Non-African American GFR(CKD) >90 (>60 ml/min/1.73 sqM); Potassium 5.2 mmol/L (3.5-5.1); Sodium 135 mmol/L (137-145); Total Bilirubin 0.6 mg/dL (0.2-1.3); Total Protein 6.4 g/dL (6.3-8.2)
[2021-09-07] MEDS: ALBUTEROL NEBULIZED 2.5 MG/3 ML INHALATION SCH ×4 (08:56→19:45)
[2021-09-07] MEDS: SYMBICORT 160-4.5 MCG INHALER INHALATION SCH ×2 (08:56→19:45)
[2021-09-07] MEDS ORDERED: LOSARTAN 50 MG TAB PO SCH (09:00)
[2021-09-07] MEDS ORDERED: ASPIRIN 325 MG TAB PO SCH (09:00)
[2021-09-07] MEDS: APIXABAN 5 MG TAB PO SCH ×2 (09:13→20:02)
[2021-09-07] MEDS: METOPROLOL TARTRATE 25 MG TAB PO SCH ×2 (09:13→20:02)
[2021-09-07] MEDS: POTASSIUM CHLORIDE ER 20 MEQ TAB.ER PO SCH (09:13)
[2021-09-07] MEDS: ATORVASTATIN 20 MG TAB PO SCH (09:13)
[2021-09-07] MEDS: ASPIRIN 81 MG PO SCH (09:13)
[2021-09-07] MEDS: NICOTINE 14MG/24HR PATCH TRANSDERM SCH (09:18)
--- NOTE | 2021-09-07 10:58 | PN ---
PROGRESS NOTE Mrs. Richards was admitted yesterday with an episode of paroxysmal atrial fibrillation and acute and acute bronchitis, reactive airway disease. She has a history of smoking and COPD. In addition she came in with what seems to be worsening acute bronchitis requiring steroids. Her troponins are normal. She is resting comfortably. I am switching her from Lovenox to Eliquis. I will switch her back from Coreg to Lopressor, mainly because patient has reactive airway disease and feels much better with this selective beta guillermo. I am therefore going to discontinue Coreg. She has also some cardiomyopathy, ejection fraction in the 45% range, but no overt heart failure. We will therefore continue her current medical regimen, increase activity and, based on clinical course, will make further recommendations. I will see her in the office in followup after her discharge. Clinically she is doing somewhat better. Her cough is better. Her wheezing has also improved to some extent. She is also on a fairly high dose of steroids. We will continue current medical regimen. She has been counseled to quit smoking. MMODL / IJN: [id number] /
[2021-09-07] MEDS ORDERED: LOSARTAN 50 MG TAB PO STA ×2 (11:57)
[2021-09-07 12:01] LABS: Glucose,Whole Blood 151 mg/dL (75-99)
--- NOTE | 2021-09-07 12:04 | P.PN ---
Subjective Progress Note Date: 09/07/21 Principal diagnosis: Atrial fibrillation with RVR and acute tracheobronchitis. As well as acute exacerbation of COPD. This is a 46-year-old female patient with a known history of obesity, hyperlipidemia, diabetes mellitus, chronic obstructive pulmonary disease with previous FEV1 value of 64% of predicted, maintained on Advair and pro-air, chronic and ongoing tobacco dependence of 30+ years at 1-2 packs per day, hypertension, diastolic congestive heart failure, mildly impaired left ventricular systolic function with ejection fraction 45-50%, moderate pulmonary hypertension, Chiari malformation with previous craniotomy in 2013, previous Niesen fundoplication. She had recently been complaining of increasing shortness of breath, cough and congestion. She was treated with antibiotics and prednisone in the outpatient setting. She came into the emergency room early today after developing anterior chest pain radiating across the front of her chest well sitting up watching TV at 1:00 this morning. She was found to be in atrial fibrillation with a rapid ventricular response. Chest x-ray revealed no acute cardiopulmonary process. Noted cardiomegaly. White count 14.3. Hemoglobin 15.4. Sodium 136. Potassium 4.6. Creatinine 0.71. Glucose 175. Bean virus not detected. She is seen today in consultation in the emergency room. She is currently sitting up in a stretcher. Awake and alert in no acute distress. She has a currently a dry nonproductive cough. Her chest discomfort has subsided. She is back in a sinus rhythm. She has been initiated on calcium channel blockers and beta blockers. Lovenox at 90 mg subcu every 12 hours per cardiology. 0.9 normal saline at 75 ML's per hour. Reevaluated today on 09/07/21, patient is doing quite well, she has no active pulmonary symptoms whatsoever. Her cough has completely resolved, her chest pain has completely resolved, patient is being followed by cardiology for her atrial fibrillation and RVR, her medications are being adjusted. Again no active pulmonary issues on this patient, and I plan to sign off and see the patient on when necessary basis. Objective - Vital Signs Vital signs: Vital Signs Temp 97.9 F 09/07/21 08:00 Pulse 78 09/07/21 09:07 Resp 20 09/07/21 08:00 BP 175/91 09/07/21 08:00 Pulse Ox 95 09/07/21 08:00 Intake & Output 09/06/21 09/07/21 09/07/21 18:59 06:59 18:59 Intake Total 510 100 Balance 510 100 Weight 105.6 kg 105.3 kg Intake: IV 10 Invasive Line 1 10 Oral 500 100 Other: Voiding Method Toilet Toilet Toilet # Voids 1 - Exam Physical Exam revealed 46-year-old female in no distress. HEENT:[Neck is supple.] [No neck masses.] [No thyromegaly.] [No JVD.] Chest: [Clear throughout, no crackles, no rhonchi, no wheezes.] Cardiac Exam: Regular rhythm, no S3 gallop, no murmur Abdomen: [Soft, nontender, no megaly, no rebound, no guarding, normal bowel sounds.] Extremities: [No clubbing, no edema, no cyanosis.] Neurological Exam: [No focal neurologic deficit.] Psychiatric: Normal mood affect and normal mental status examination. Skin: No rashes. - Labs CBC & Chem 7: 09/07/21 07:21 09/07/21 07:21 Labs: Abnormal Lab Results - Last 24 Hours (Table) 09/06/21 09/07/21 09/07/21 Range/Units 20:27 06:18 07:21 Hct (34.0-46.0) % Sodium 135 L (137-145) mmol/L Potassium 5.2 H (3.5-5.1) mmol/L BUN 20 H (7-17) mg/dL Glucose 175 H (74-99) mg/dL POC Glucose (mg/dL) 114 H 170 H (75-99) mg/dL 09/07/21 Range/Units 07:21 Hct 47.5 H (34.0-46.0) % Sodium (137-145) mmol/L Potassium (3.5-5.1) mmol/L BUN (7-17) mg/dL Glucose (74-99) mg/dL POC Glucose (mg/dL) (75-99) mg/dL Assessment and Plan Assessment: Impression: Acute tracheobronchitis and acute exacerbation of COPD New onset atrial fibrillation with RVR Tobacco dependence syndrome. Obesity. Hypertension. Type 2 diabetes. History of Cristy's fundoplication. Diabetic neuropathy. Atypical chest pain. Recommendation: Continue bronchodilators including albuterol and Symbicort, Continue doxycycline. Cardiology is addressing her cardiac issues. Sign off and see the patient on when necessary basis Discharge home when cleared by cardiology for discharge. Follow-up on outpatient basis. Time with Patient: Less than 30
[2021-09-07] MEDS: DOXYCYCLINE 100 MG CAP PO SCH ×2 (12:43→20:02)
--- NOTE | 2021-09-07 13:52 | P.HPIM ---
History of Present Illness H&P Date: 09/06/21 Chief Complaint: Acute chest pain, shortness of breath and respiratory failure, COPD and sev HISTORY OF PRESENT ILLNESS 46-year-old female one of Dr. Harvey patient with past medical history of COPD, type 2 diabetes, hypertension, post partial cardiopathy, obstructive sleep apnea, chronic history of kidney stone, occipital neuralgia, chronic headache, hiatal hernia post Cristy fundoplication, history of Chiari malformation post craniotomy 2012, chronic history of tobacco and marijuana use. Patient apparently was not hospitalized in October 2019 for worsening shortness of breath and dyspnea was diagnosed with excess patient of CHF at the time. Patient supposed to see Dr. Rivera cardiology along with Dr. Alcocer pulmonary on regular basis apparently has not been seen anybody except her primary care physician which was seen earlier almost once a month for her cardiomyopathy and heart failure lately has not been seen him down much. Patient presented to the emergency department at [facility] with worsening dyspnea and shortness of breath she woke up having significant palpitation and racing heart around 2:00 after midnight symptoms become much worse with slight a chest pain across her chest wall. Her blood pressure was 180/140 with pulse rate running 160 bpm at a time. She found to be in A. fib with [facility] apartment before was started on any Cardizem drip she was converted to sinus rhythm with pulse rate running in the 60s to 70s. Continue to have significant dyspnea and shortness of breath with worsening cough and wheezes. Chest x-ray revealed no acute pulmonary process except mild cardiomegaly and slight cephalization and congestion mostly central. Clinically patient was having respiratory expiratory wheezes and significant decrease in lung volume apparently her FEV1 last time had around 64 percentile even she had measurement of ejection fraction last year of 45-50 percentile only medication had been adjusted for her cardiomyopathy. Patient was hospitalized at this point with above problem REVIEW OF SYSTEMS Constitutional: No fever, no chills, no night sweats. No weight change. No weakness, fatigue or lethargy. No daytime sleepiness. EENT: No headache. No blurred vision or double vision, no loss of vision. No loss of Hearing, no ringing in the ears, no dizziness. No nasal drainage or congestion. No epistaxis. No sore throat. Quite congestion the back of her throat. Lungs: Positive shortness of breath cough wheezes sputum production and worsen ing dyspnea with minimal exertion. Cardiovascular: No chest pain, no lower extremity edema. No palpitations. No paroxysmal nocturnal dyspnea. No orthopnea. No lightheadedness or dizziness. No syncopal episodes. Abdominal: No abdominal pain. No nausea, vomiting. No diarrhea. No constipation. No bloody or tarry stools.. No loss of appetite. Genitourinary: No dysuria, increased frequency, urgency. No urinary retention. Musculoskeletal: No myalgias. No muscle weakness, no gait dysfunction, no frequent falls. No back pain. No neck pain. Integumentary: No wounds, no lesions. No rash or pruritus. No unusual bruising. No change in hair or nails. Neurologic: No aphasia. No facial droop. No change in mentation. No head injury. No headache. No paralysis. No paresthesia. Psychiatric: No depression. No anxiety. No mood swings. Endocrine: No abnormal blood sugars. No weight change. No excessive sweating or thirst. No cold intolerance. SOCIAL HISTORY: She has smoked pack a day since she was 13-year-old, smoked marijuana on regular basis. Patient drinks alcohol rarely she manage a convenience store she lives alone. FAMILY HISTORY She has 2 children both are living and well, she had 4 siblings one of her sister had cardiomyopathy post defibrillator. Her mother at age 56 of diabetic cancer, father is a 70 has multiple medical problem. PHYSICAL EXAMINATION Gen: This is significantly overweight and mild respiratory distress. HEENT: Significant congestion in the back of her throat mild sinus drainage Head is atraumatic, normocephalic. Pupils equal, round. Sclerae is anicteric. NECK: Supple. No JVD. No lymphadenopathy. No thyromegaly. LUNGS: Decreased breath sound bilaterally fine rhonchi positive crackles in the bases positive inspiratory expiratory wheezes. HEART: Regular rate and rhythm S1, S2 positive S3 positive 2/6 ejection systolic murmur at the apex at the time was exam there is no irregularity and not able to hear any A. fib.. ABDOMEN: Soft. Bowel sounds are present. No masses. No tenderness. EXTREMITIES: No pedal edema. No calf tenderness. NEUROLOGICAL: Patient is awake, alert and oriented x3. Cranial nerves 2 through 12 are grossly intact. ASSESSMENT AND PLAN 1. A. fib with RVR: Patient was converted back to sinus rhythm she should still be watch on heart monitor this point, will be seeing cardiology, echocardiogram be done patient will need to start at least on a smaller dose of beta guillermo and needed anticoagulation with Eliquis. 2 acute respiratory failure: Combination off cardiomyopathy, COPD, severe bronchitis and early pneumonia, will continue O2, updraft treatment, steroid nebulizer management. Pulmonary consultation be done. 3 COPD with exacerbation: Patient will be on Solu-Medrol 60 mg every 6 along w ith DuoNeb and Pulmicort. 4 acute severe bronchitis: Patient was on oral antibiotic as an outpatient was switched to doxycycline 100 mg twice a day 5 cardiomyopathy: Could like post partial cardiomyopathy with ejection fraction has recovered up to 45 percentile repeat another echocardiogram this time. 6 history of hypertension: Has been on Coreg 12.5 mg twice a day, along with verapamil has a 20 mg twice a day. 7 hyperglycemia: Accu-Chek with sliding scales coverage and be done patient had most recent type 2 diabetes has been on diet control Benefit from metformin arginyl Januvia. 8 electrolyte slight imbalance: With mild hyperkalemia, continue diuretics and will repeat CMP in 24 hours. 9 nicotine dependency: Was start patient on nicotine patch. 10 GI prophylaxis: Continue patient on Pepcid. 11 DVT prophylaxis: Patient will be on anticoagulation at this point. 12. COVID-19 testing. Was negative patient will be admitted during pandemic season. CODE STATUS: Full code. Patient will be admitted to the hospital for a minimum of 2 night stay. Past Medical History Past Medical History: Heart Failure, COPD, GERD/Reflux, Hypertension, Seizure Disorder, Sleep Apnea/CPAP/BIPAP Additional Past Medical History / Comment(s): mult kidney stones, HX pneumonia /vented-2011, peptic ulcers, Sleep apnea-no device currently, bilateral occipital neuritis, headaches, vertigo, neuropathy;"legs give out at times". States has "convulsions" "I get numb,fall asleep,and shake, but I'm aware of my surroundings" hx of diverticulitis and colon polyps, hemmorhoids History of Any Multi-Drug Resistant Organisms: None Reported Past Surgical History: Cholecystectomy, Hernia Repair Additional Past Surgical History / Comment(s): brain surgery 2012 for seizures & headaches, Right ovary/tube removed 2009, D&C, Picc line insertion since removed, Kidney stone surgically removed & lithotripsy., Laproscopic Cristy Fundoplasty. Colonoscopy, Past Anesthesia/Blood Transfusion Reactions: No Reported Reaction Past Psychological History: No Psychological Hx Reported Additional Psychological History / Comment(s): . Smoking Status: Current every day smoker Past Alcohol Use History: Rare Additional Past Alcohol Use History / Comment(s): Patient is a current every day smoker. States she smokes 2ppd and has smoked for 30+Years. Past Drug Use History: Marijuana Additional Drug Use History / Comment(s): Marijuana daily. - Past Family History Father Family Medical History: AFIB, Diabetes Mellitus, Hypertension Additional Family Medical History / Comment(s): Father is alive at age 67 with history of atrial fibrillation, diabetes, hypertension, pacemaker. Mother Family Medical History: Cancer Additional Family Medical History / Comment(s): Mother of pancreatic cancer at the age of 58yrs. Maternal cousin had pancreatic cancer. Maternal uncle had lung cancer. Sister(s) Family Medical History: AICD/Pacemaker Additional Family Medical History / Comment(s): the patient has one sister with AICD. Second sister has no major medical problems. Patient's 1 brother that is healthy. Patient has one son and one daughter with no major medical problems. Medications and Allergies Home Medications Medication Instructions Recorded Confirmed Type Albuterol Sulfate [Proair Hfa] 2 puff INHALATION RT-Q6H PRN 09/06/21 09/06/21 History Aspirin 81 mg PO DAILY@1700 09/06/21 09/06/21 History Fluticasone/Salmeterol [Advair 2 puff INHALATION RT-BID 09/06/21 09/06/21 History 500-50 Diskus] Furosemide [Lasix] 40 mg PO BID@0900,1700 09/06/21 09/06/21 History Ipratropium-Albuterol Nebulize 3 ml INHALATION RT-Q6H PRN 09/06/21 09/06/21 History [Duoneb 0.5 mg-3 mg/3 ml Soln] Losartan Potassium 50 mg PO DAILY@0900 09/06/21 09/06/21 History Potassium Chloride ER [K-Dur 20] 20 meq PO BID@0900,2100 09/06/21 09/06/21 History Rizatriptan Benzoate [Rizatriptan] 10 mg PO DAILY PRN 09/06/21 09/06/21 History Simvastatin [Zocor] 10 mg PO HS@2100 09/06/21 09/06/21 History glipiZIDE [Glucotrol] 5 mg PO DAILY@1700 09/06/21 09/06/21 History predniSONE [Deltasone] 20 mg PO TID 09/06/21 09/06/21 History Apixaban [Eliquis] 5 mg PO BID #60 tab 09/07/21 Rx Metoprolol Tartrate [Lopressor] 25 mg PO BID #60 tab 09/07/21 Rx Nicotine 14Mg/24Hr Patch [Habitrol] 1 patch TRANSDERM DAILY #30 patch 09/07/21 Rx Allergies Allergy/AdvReac Type Severity Reaction Status Date / Time pregabalin [From Lyrica] Allergy Unknown Unknown Verified 09/06/21 08:13 acetylcysteine Allergy Swelling Verified 09/06/21 08:13 hydromorphone HCl Allergy headache Verified 09/06/21 08:13 [From Dilaudid] BERRIES Allergy Anaphylaxis Uncoded 09/06/21 05:33 Physical Exam Vitals: Vital Signs Temp Pulse Pulse Resp BP BP Pulse Ox 09/06/21 19:45 97.9 F 70 18 157/89 97 09/06/21 18:00 97.6 F 71 16 170/99 97 09/06/21 17:00 58 L 18 158/90 94 L 09/06/21 16:02 64 09/06/21 15:42 64 92 L 09/06/21 15:00 62 18 152/84 95 09/06/21 13:00 65 20 150/80 09/06/21 09:49 73 20 153/93 94 L 09/06/21 06:36 90 16 151/82 96 09/06/21 05:30 98.5 F 84 22 117/87 96 Intake and Output 09/06/21 09/06/21 09/06/21 06:59 14:59 22:59 Intake Total 510 Balance 510 Intake: IV 10 Invasive Line 1 10 Oral 500 Other: Voiding Method Toilet Weight 103.419 kg 105.6 kg Results CBC & Chem 7: 09/07/21 07:21 09/07/21 07:21 Labs: Abnormal Lab Results - Last 24 Hours (Table) 09/06/21 09/06/21 Range/Units 05:46 05:46 WBC 14.3 H (3.8-10.6) k/uL Hct 48.5 H (34.0-46.0) % RDW 15.6 H (11.5-15.5) % Neutrophils # 9.7 H (1.3-7.7) k/uL Sodium 136 L (137-145) mmol/L BUN 19 H (7-17) mg/dL Glucose 175 H (74-99) mg/dL Total Protein 6.2 L (6.3-8.2) g/dL Thrombosis Risk Factor Assmnt - Choose All That Apply Any of the Below Risk Factors Present?: Yes Each Factor Represents 1 point: Abnormal pulmonary function (COPD), Age 41-60 years, Obesity (BMI >25), Swollen legs (current) Other Risk Factors: No Other congenital or acquired thrombophilia - If yes, enter type in comment: No Thrombosis Risk Factor Assessment Total Risk Factor Score: 4 Thrombosis Risk Factor Assessment Level: Moderate Risk
[2021-09-07] MEDS ORDERED: glipiZIDE 5 MG TAB PO SCH (17:00)
[2021-09-07] MEDS ORDERED: ASPIRIN 81 MG PO SCH (17:00)
[2021-09-07 17:06] LABS: Chol/HDL Ratio 2.33 Ratio; LDL Cholesterol,Calculated 70.5 mg/dL (0.0-131.0); VLDL Calculation 14.14 mg/dL (5.00-40.00)
[2021-09-07 17:14] LABS: Glucose,Whole Blood 248 mg/dL (75-99)
[2021-09-07 20:16] LABS: Glucose,Whole Blood 229 mg/dL (75-99)
[2021-09-07] MEDS: hydrALAZINE HCL 25 MG TAB PO SCH (22:39)
[2021-09-08] MEDS: methylPREDNISolone SOD SUCCI 125 MG/2 ML VIAL IV SCH ×3 (00:49→12:39)
[2021-09-08] MEDS: SODIUM CHLORIDE 0.9% 1,000 ML IV SCH ×2 (00:51→08:18)
[2021-09-08] MEDS: POTASSIUM CHLORIDE ER 20 MEQ TAB.ER PO SCH (01:02)
[2021-09-08 06:45] LABS: Glucose,Whole Blood 207 mg/dL (75-99)
[2021-09-08] MEDS: INSULIN ASPART (NovoLOG) 100 UNIT/ML VIAL SQ SCH ×2 (06:47→12:39)
[2021-09-08] MEDS: hydrALAZINE HCL 25 MG TAB PO SCH (08:15)
[2021-09-08] MEDS: ATORVASTATIN 20 MG TAB PO SCH (08:15)
[2021-09-08] MEDS: ASPIRIN 81 MG PO SCH (08:15)
[2021-09-08] MEDS: ACETAMINOPHEN TAB 325 MG TAB PO PRN (08:15)
[2021-09-08] MEDS: METOPROLOL TARTRATE 25 MG TAB PO SCH (08:15)
[2021-09-08] MEDS: APIXABAN 5 MG TAB PO SCH (08:15)
[2021-09-08] MEDS: DOXYCYCLINE 100 MG CAP PO SCH (08:15)
[2021-09-08] MEDS: NICOTINE 14MG/24HR PATCH TRANSDERM SCH (08:18)
[2021-09-08] MEDS: ALBUTEROL NEBULIZED 2.5 MG/3 ML INHALATION SCH ×2 (08:18→11:25)
[2021-09-08] MEDS: SYMBICORT 160-4.5 MCG INHALER INHALATION SCH (08:20)
[2021-09-08 08:21] VITALS: TEMP 97.8
[2021-09-08 08:37] LABS: HCT 45.1 % (34.0-46.0); HGB 14.2 gm/dL (11.4-16.0); MCHC 31.5 g/dL (31.0-37.0); MCV 92.1 fL (80.0-100.0); Mean Platelet Volume 7.5; Platelet Count 251 k/uL (150-450); RDW 15.2 % (11.5-15.5); WBC 14.1 k/uL (3.8-10.6)
[2021-09-08] MEDS ORDERED: FUROSEMIDE 40 MG TAB PO SCH (09:00)
[2021-09-08] MEDS ORDERED: LOSARTAN 50 MG TAB PO SCH (09:00)
[2021-09-08] MEDS ORDERED: FAMOTIDINE 20 MG TAB PO SCH (09:00)
[2021-09-08 09:02] LABS: ALT 17 U/L (4-34); AST 15 U/L (14-36); African American GFR (CKD) >90 (>60 ml/min/1.73 sqM); Albumin 3.6 g/dL (3.5-5.0); Alkaline Phosphatase 65 U/L (38-126); Anion Gap 4 mmol/L; Blood Urea Nitrogen 15 mg/dL (7-17); Calcium 9.3 mg/dL (8.4-10.2); Carbon Dioxide 26 mmol/L (22-30); Chloride 104 mmol/L (98-107); Glucose 214 mg/dL (74-99); Non-African American GFR(CKD) >90 (>60 ml/min/1.73 sqM); Sodium 134 mmol/L (137-145); Total Bilirubin 0.4 mg/dL (0.2-1.3); Total Protein 6.3 g/dL (6.3-8.2)
[2021-09-08 11:34] VITALS: BP 184/92
[2021-09-08 11:38] VITALS: PULSE 72; RESP 16
[2021-09-08 12:04] LABS: Glucose,Whole Blood 213 mg/dL (75-99)
[2021-09-08] MEDS ORDERED: hydrALAZINE HCL 50 MG TAB PO SCH (12:30)
--- NOTE | 2021-09-08 14:35 | PN ---
PROGRESS NOTE Mrs. Sis Richards has history of smoking, COPD, hypertension, hyperlipidemia, diabetes, and possible cardiomyopathy. She is doing better today. Her breathing is a lot easier. She has no is significant troponin elevation. Her echo revealed ejection fraction of 45% range. I am recommending that we will optimize medical therapy. I will see her in the office and make further recommendations. I am going to start her on a small dose of oral Lasix at 40 mg daily, continue all her other medications as before. She is still on steroids and blood sugars are elevated. We have counseled regarding the need to quit smoking. We can discontinue the aspirin and leave her on apixaban 5 mg b.i.d. I discussed my thoughts in detail with the patient. I will see her upon discharge and she is going to work hard to quit smoking. MMROWANL / BLANCA: [id number] /
--- NOTE | 2021-09-08 21:02 | P.DS ---
Providers Date of admission: 09/06/21 07:30 Attending physician: Brennan Jeong Consults: 09/06/21 07:30 Consult Physician Routine Consulting Provider: Elmo Rivera Consult Reason/Comments: Chest pain. Atrial fibrillation with rapid ventricular rate. Do you want consulting provider notified?: Yes 09/06/21 09:11 Consult Physician Routine Consulting Provider: Kwame Alcocer Consult Reason/Comments: Bronchitis Do you want consulting provider notified?: Yes Primary care physician: [facility]: HISTORY OF PRESENT ILLNESS 46-year-old female one of Dr. Harvey patient with past medical history of COPD, type 2 diabetes, hypertension, post partial cardiopathy, obstructive sleep apnea, chronic history of kidney stone, occipital neuralgia, chronic headache, hiatal hernia post Cristy fundoplication, history of Chiari malformation post craniotomy 2012, chronic history of tobacco and marijuana use. Patient apparently was not hospitalized in October 2019 for worsening shortness of breath and dyspnea was diagnosed with excess patient of CHF at the time. Patient supposed to see Dr. Rivera cardiology along with Dr. Alcocer pulmonary on regular basis apparently has not been seen anybody except her primary care physician which was seen earlier almost once a month for her cardiomyopathy and heart failure lately has not been seen him down much. Patient presented to the emergency department at [facility] with worsening dyspnea and shortness of breath she woke up having significant palpitation and racing heart around 2:00 after midnight symptoms become much worse with slight a chest pain across her chest wall. Her blood pressure was 180/140 with pulse rate running 160 bpm at a time. She found to be in A. fib with [facility] apartment before was started on any Cardizem drip she was converted to sinus rhythm with pulse rate running in the 60s to 70s. Continue to have significant dyspnea and shortness of breath with worsening cough and wheezes. Chest x-ray revealed no acute pulmonary process except mild cardiomegaly and slight cephalization and congestion mostly central. Clinically patient was having respiratory expiratory wheezes and significant decrease in lung volume apparently her FEV1 last time had around 64 percentile even she had measurement of ejection fraction last year of 45-50 percentile only medication had been adjusted for her cardiomyopathy. Patient was hospitalized at this point with above problem 11/20, patient is seen by both pulmonary and cardiology today, ejection fraction is 45%, cardiology recommended small dose of Lasix 40 mg daily, and pulmonary is recommending tapered oral prednisone, aspirin is discontinued, and eliquis 5 mg twice a day, for solitary anticoagulation. She is recommended to quit tobacco use irrevocably she is cleared by pulmonary and cardiology at this time, she is back on sinus rhythm at this time, with calcium channel blockers, and beta guillermo. I have called patient at home and forward to her his recommendation as per cardiology after her discharge, however patient went home AGAINST MEDICAL ADVICE and refused to follow the recommendation from the host patient's blood pressure is significantly uncontrolled on discharge Final diagnosis home AGAINST MEDICAL ADVICE 1. A. fib with RVR: Patient was converted back to sinus rhythm she should still be watch on heart monitor this point, will be seeing cardiology, echocardiogram EF 45% patient will need to start at least on a smaller dose of beta guillermo and needed anticoagulation with Eliquis. 2 acute respiratory failure: Combination of cardiomyopathy, COPD, severe bronchitis and early pneumonia, will continue O2, updraft treatment, steroid nebulizer management. Pulmonary consultation be done. 3 COPD with exacerbation: Patient will be on Solu-Medrol 60 mg every 6 along with DuoNeb and Pulmicort. 4 acute severe bronchitis: Patient was on oral antibiotic as an outpatient was switched to doxycycline 100 mg twice a day 5 cardiomyopathy: Could like post partial cardiomyopathy with ejection fraction has recovered up to 45 percentile repeat another echocardiogram this time. 6 history of hypertension: Has been on Coreg 12.5 mg twice a day, along with verapamil has a 20 mg twice a day. 7 hyperglycemia: Accu-Chek with sliding scales coverage and be done patient had most recent type 2 diabetes has been on diet control Benefit from metformin arginyl Januvia. 8 electrolyte slight imbalance: With mild hyperkalemia, continue diuretics and will repeat CMP as op, decrease potassium to 20 meq daily 9 nicotine dependency: Was start patient on nicotine patch. 10 GI prophylaxis: Continue patient on Pepcid. 11 DVT prophylaxis: Patient will be on anticoagulation at this point. 12. COVID-19 testing. Was negative patient will be admitted during pandemic season. CODE STATUS: Full code. Patient will be admitted to the hospital for a minimum of 2 night stay. Patient Condition at Discharge: Serious Plan - Discharge Summary Discharge Rx Participant: No New Discharge Prescriptions: New Apixaban [Eliquis] 5 mg PO BID #60 tab Metoprolol Tartrate [Lopressor] 25 mg PO BID #60 tab Nicotine 14Mg/24Hr Patch [Habitrol] 1 patch TRANSDERM DAILY #30 patch Continue predniSONE [Deltasone] 20 mg PO TID Ipratropium-Albuterol Nebulize [Duoneb 0.5 mg-3 mg/3 ml Soln] 3 ml INHALATION RT-Q6H PRN PRN Reason: Shortness Of Breath Losartan Potassium 50 mg PO DAILY@0900 Rizatriptan Benzoate [Rizatriptan] 10 mg PO DAILY PRN PRN Reason: Migraine Headache Albuterol Sulfate [Proair Hfa] 2 puff INHALATION RT-Q6H PRN PRN Reason: Shortness Of Breath Fluticasone/Salmeterol [Advair 500-50 Diskus] 2 puff INHALATION RT-BID Simvastatin [Zocor] 10 mg PO HS@2100 Potassium Chloride ER [K-Dur 20] 20 meq PO BID@0900,2100 glipiZIDE [Glucotrol] 5 mg PO DAILY@1700 Furosemide [Lasix] 40 mg PO BID@0900,1700 Aspirin 81 mg PO DAILY@1700 Discontinued Carvedilol [Coreg] 25 mg PO BID@0900,1700 Discharge Medication List Albuterol Sulfate [Proair Hfa] 2 puff INHALATION RT-Q6H PRN 09/06/21 [History] Aspirin 81 mg PO DAILY@1700 09/06/21 [History] Fluticasone/Salmeterol [Advair 500-50 Diskus] 2 puff INHALATION RT-BID 09/06/21 [History] Furosemide [Lasix] 40 mg PO BID@0900,1700 09/06/21 [History] Ipratropium-Albuterol Nebulize [Duoneb 0.5 mg-3 mg/3 ml Soln] 3 ml INHALATION RT-Q6H PRN 09/06/21 [History] Losartan Potassium 50 mg PO DAILY@0900 09/06/21 [History] Potassium Chloride ER [K-Dur 20] 20 meq PO BID@0900,2100 09/06/21 [History] Rizatriptan Benzoate [Rizatriptan] 10 mg PO DAILY PRN 09/06/21 [History] Simvastatin [Zocor] 10 mg PO HS@2100 09/06/21 [History] glipiZIDE [Glucotrol] 5 mg PO DAILY@1700 09/06/21 [History] predniSONE [Deltasone] 20 mg PO TID 09/06/21 [History] Apixaban [Eliquis] 5 mg PO BID #60 tab 09/07/21 [Rx] Metoprolol Tartrate [Lopressor] 25 mg PO BID #60 tab 09/07/21 [Rx] Nicotine 14Mg/24Hr Patch [Habitrol] 1 patch TRANSDERM DAILY #30 patch 09/07/21 [Rx] Follow up Appointment(s)/Referral(s): Hector Palacios MD [STAFF PHYSICIAN] - 2 Weeks James Harvey DO [Primary Care Provider] - 1 Week Discharge Disposition: HOME SELF-CARE
== END 2021-09-08 13:05 | disposition home or self-care (01) | DRG 308 ==
LOC: EC 05:27 → 3SCARD 07:30
PROVIDERS: ADMIT Internal Medicine Geriatric Medicine; ATTEND Internal Medicine Geriatric Medicine
DX: I48.0 Paroxysmal atrial fibrillation (principal); J18.9 Pneumonia, unspecified organism; J96.00 Acute respiratory failure, unspecified whether with hypoxia or hypercapnia; Z68.41 Body mass index [BMI] 40.0-44.9, adult; I50.42 Chronic combined systolic (congestive) and diastolic (congestive) heart failure; J44.0 Chronic obstructive pulmonary disease with (acute) lower respiratory infection; J44.1 Chronic obstructive pulmonary disease with (acute) exacerbation; I42.9 Cardiomyopathy, unspecified; E11.40 Type 2 diabetes mellitus with diabetic neuropathy, unspecified; E66.9 Obesity, unspecified; E78.5 Hyperlipidemia, unspecified; F17.210 Nicotine dependence, cigarettes, uncomplicated; G40.909 Epilepsy, unspecified, not intractable, without status epilepticus; G47.33 Obstructive sleep apnea (adult) (pediatric); I11.0 Hypertensive heart disease with heart failure; I27.20 Pulmonary hypertension, unspecified; I45.4 Nonspecific intraventricular block; J20.9 Acute bronchitis, unspecified; Z20.822 Contact with and (suspected) exposure to COVID-19; E11.65 Type 2 diabetes mellitus with hyperglycemia; Z79.01 Long term (current) use of anticoagulants; Z79.82 Long term (current) use of aspirin; Z79.84 Long term (current) use of oral hypoglycemic drugs; Z79.899 Other long term (current) drug therapy; Z80.0 Family history of malignant neoplasm of digestive organs; Z80.1 Family history of malignant neoplasm of trachea, bronchus and lung; Z82.49 Family history of ischemic heart disease and other diseases of the circulatory system; Z83.3 Family history of diabetes mellitus; Z87.11 Personal history of peptic ulcer disease; Z87.01 Personal history of pneumonia (recurrent); Z86.010 Personal history of colon polyps; Z87.442 Personal history of urinary calculi; Z88.5 Allergy status to narcotic agent; Z88.8 Allergy status to other drugs, medicaments and biological substances; Z91.018 Allergy to other foods; E87.5 Hyperkalemia; Z71.6 Tobacco abuse counseling
CPT/HCPCS: 36415; 71046; 80053; 80061; 83036; 83735; 83880; 84145; 84443; 84484; 85025; 85027; 85610; 85730; 87635; 93005; 93306; 94640; 94760; 99285

== ENCOUNTER 2021-10-09 02:50 | Emergency (ER) | payer OTHER ==
[2021-10-09] MEDS ORDERED: ACETAMINOPHEN TAB 325 MG TAB PO STA ×2 (03:25→05:00)
[2021-10-09] MEDS ORDERED: LABETALOL 5 MG/ML VIAL MDV IVP STA ×2 (03:25→05:40)
[2021-10-09 03:47] VITALS: RESP 18
--- NOTE | 2021-10-09 04:05 | XR ---
EXAMINATION TYPE: XR chest 2V DATE OF EXAM: 10/09/2021 COMPARISON: 09/06/2021 HISTORY: Cough TECHNIQUE: FINDINGS: There is no heart failure. Lungs are clear of consolidation. Heart is borderline enlarged. There is no pleural effusion. There are chest leads. There are no hilar masses. Bony thorax is intact . IMPRESSION: Borderline cardiomegaly. No change compared to old exam. No heart failure.
[2021-10-09 04:39] LABS: Basophils % (A) 0 %; Eosinophils # (A) 0.2 k/uL (0-0.7); Eosinophils % (A) 2 %; HCT 46.8 % (34.0-46.0); HGB 15.3 gm/dL (11.4-16.0); Lymphocytes # (A) 2.5 k/uL (1.0-4.8); Lymphocytes % (A) 28 %; MCH 29.5 pg (25.0-35.0); MCHC 32.7 g/dL (31.0-37.0); Mean Platelet Volume 7.4; Monocytes # (A) 0.5 k/uL (0-1.0); Monocytes % (A) 5 %; Neutrophils # (A) 5.7 k/uL (1.3-7.7); Neutrophils % (A) 63 %; Platelet Count 245 k/uL (150-450); RDW 14.8 % (11.5-15.5); WBC 9.1 k/uL (3.8-10.6)
[2021-10-09 04:40] LABS: ALT 15 U/L (4-34); AST 20 U/L (14-36); African American GFR (CKD) >90 (>60 ml/min/1.73 sqM); Albumin 4.3 g/dL (3.5-5.0); Alkaline Phosphatase 78 U/L (38-126); Amylase 50 U/L (30-110); Anion Gap 9 mmol/L; Blood Urea Nitrogen 20 mg/dL (7-17); Calcium 9.8 mg/dL (8.4-10.2); Carbon Dioxide 24 mmol/L (22-30); Chloride 106 mmol/L (98-107); Glucose 136 mg/dL (74-99); Lipase 56 U/L (23-300); Magnesium 1.8 mg/dL (1.6-2.3); Non-African American GFR(CKD) >90 (>60 ml/min/1.73 sqM); Potassium 4.1 mmol/L (3.5-5.1); Sodium 139 mmol/L (137-145); Total Bilirubin 0.5 mg/dL (0.2-1.3); Total Protein 7.1 g/dL (6.3-8.2)
[2021-10-09 04:49] LABS: Partial Thromboplastin Time 24.6 sec (22.0-30.0); Prothrombin Time 10.7 sec (9.0-12.0)
[2021-10-09] MEDS ORDERED: LORazepam 2 MG/ML INJ IV STA (05:50)
[2021-10-09 07:28] VITALS: BP 157/52; PULSE 71
[2021-10-09 07:29] VITALS: TEMP 98
--- NOTE | 2021-10-09 07:29 | ED ---
Headache HPI - General Chief Complaint: Headache Stated Complaint: BP High, Back Pain Time Seen by Provider: 10/09/21 03:04 Mode of arrival: wheelchair Limitations: no limitations - History of Present Illness Initial Comments: This patient is a 46-year-old woman who presents to be evaluated for constellation of symptoms that had been coming on over the course of tonight. Patient had noted that her blood pressure was high and in association with that was starting to get a diffuse pounding headache. She also is experiencing some thoracic back pain. Patient states that she did take an extra carvedilol but that her blood pressure continued to be running higher than normal at home. She was getting readings over 200 and felt she should be seen here. Patient denies any neurologic symptoms. MD Complaint: headache -: hour(s) Onset Description: gradual Location: diffuse Severity: moderate Quality: aching Consistency: constant Improves With: nothing Worsens With: none Context: other Other Symptoms: other Treatments Prior to Arrival: other - Related Data Home Medications Medication Instructions Recorded Confirmed Albuterol Sulfate [Proair Hfa] 2 puff INHALATION RT-Q6H PRN 09/06/21 10/11/21 Fluticasone/Salmeterol [Advair 2 puff INHALATION RT-BID 09/06/21 10/11/21 500-50 Diskus] Ipratropium-Albuterol Nebulize 3 ml INHALATION RT-Q6H PRN 09/06/21 10/11/21 [Duoneb 0.5 mg-3 mg/3 ml Soln] Rizatriptan Benzoate [Rizatriptan] 10 mg PO DAILY PRN 09/06/21 10/11/21 Simvastatin [Zocor] 10 mg PO HS@2100 09/06/21 10/11/21 glipiZIDE [Glucotrol] 5 mg PO DAILY@1700 09/06/21 10/11/21 Aspirin EC [Ecotrin Low Dose] 81 mg PO DAILY@1700 10/11/21 10/11/21 Carvedilol [Coreg] 25 mg PO BID 10/11/21 10/11/21 Magnesium 300 mg PO DAILY 10/11/21 10/11/21 Previous Rx's Medication Instructions Recorded Apixaban [Eliquis] 5 mg PO BID #60 tab 09/07/21 Nicotine 14Mg/24Hr Patch [Habitrol] 1 patch TRANSDERM DAILY #30 patch 09/07/21 Furosemide [Lasix] 40 mg PO DAILY #0 09/08/21 Potassium Chloride ER [K-Dur 20] 20 meq PO DAILY #0 09/08/21 Losartan Potassium 100 mg PO DAILY@0900 #60 tab 10/11/21 Allergies Allergy/AdvReac Type Severity Reaction Status Date / Time pregabalin [From Lyrica] Allergy Unknown Unknown Verified 10/11/21 06:47 acetylcysteine Allergy Swelling Verified 10/11/21 06:47 hydromorphone HCl AdvReac headache Verified 10/11/21 06:47 [From Dilaudid] BERRIES Allergy Anaphylaxis Uncoded 10/11/21 06:47 Review of Systems ROS Statement: Those systems with pertinent positive or pertinent negative responses have been documented in the HPI. ROS Other: All systems not noted in ROS Statement are negative. Constitutional: Denies: fever, chills, weakness Eyes: Denies: vision change ENT: Denies: ear pain Respiratory: Denies: cough, dyspnea Cardiovascular: Denies: chest pain, palpitations, dyspnea on exertion, orthopnea, edema, syncope Gastrointestinal: Denies: abdominal pain, vomiting, diarrhea Genitourinary: Denies: dysuria, hematuria Musculoskeletal: Reports: as per HPI, back pain Skin: Denies: rash Neurological: Reports: headache. Denies: weakness, numbness, paresthesias, confusion Psychiatric: Reports: anxiety Past Medical History Past Medical History: Heart Failure, COPD, GERD/Reflux, Hypertension, Seizure Disorder, Sleep Apnea/CPAP/BIPAP Additional Past Medical History / Comment(s): mult kidney stones, HX pneumonia /vented-2011, peptic ulcers, Sleep apnea-no device currently, bilateral occipital neuritis, headaches, vertigo, neuropathy;"legs give out at times". States has "convulsions" "I get numb,fall asleep,and shake, but I'm aware of my surroundings" hx of diverticulitis and colon polyps, hemmorhoids History of Any Multi-Drug Resistant Organisms: None Reported Past Surgical History: Cholecystectomy, Hernia Repair Additional Past Surgical History / Comment(s): brain surgery 2013 for seizures & headaches, Right ovary/tube removed 2009, D&C, Picc line insertion since removed, Kidney stone surgically removed & lithotripsy., Laproscopic Cristy Fundoplasty. Colonoscopy, Past Anesthesia/Blood Transfusion Reactions: No Reported Reaction Past Psychological History: No Psychological Hx Reported Smoking Status: Current every day smoker Past Alcohol Use History: Rare Past Drug Use History: Marijuana - Past Family History Father Family Medical History: AFIB, Diabetes Mellitus, Hypertension Additional Family Medical History / Comment(s): Father is alive at age 67 with history of atrial fibrillation, diabetes, hypertension, pacemaker. Mother Family Medical History: Cancer Additional Family Medical History / Comment(s): Mother of pancreatic cancer at the age of 58yrs. Maternal cousin had pancreatic cancer. Maternal uncle had lung cancer. Sister(s) Family Medical History: AICD/Pacemaker Additional Family Medical History / Comment(s): the patient has one sister with AICD. Second sister has no major medical problems. Patient's 1 brother that is healthy. Patient has one son and one daughter with no major medical problems. General Exam Limitations: no limitations General appearance: alert, in no apparent distress Head exam: Present: atraumatic, normocephalic Eye exam: Present: normal appearance. Absent: scleral icterus, conjunctival injection Neck exam: Present: normal inspection, full ROM Respiratory exam: Present: normal lung sounds bilaterally. Absent: respiratory distress, wheezes, rales, rhonchi, stridor Cardiovascular Exam: Present: regular rate, normal rhythm, normal heart sounds. Absent: systolic murmur, diastolic murmur, rubs, gallop Extremities exam: Present: normal inspection, normal capillary refill. Absent: pedal edema, calf tenderness Neurological exam: Present: alert, oriented X3, CN II-XII intact. Absent: motor sensory deficit Skin exam: Present: warm, dry, intact, normal color. Absent: rash Course Vital Signs 10/09/21 10/09/21 10/09/21 02:53 03:19 03:40 Temperature 98 F Pulse Rate 74 73 Pulse Rate [ 85 Por[employer]ain Enamel Repairer ] Respiratory 26 H 18 Rate Blood Pressure 192/97 164/101 O2 Sat by Pulse 95 98 Oximetry 10/09/21 10/09/21 10/09/21 03:50 05:00 05:30 Temperature Pulse Rate 92 69 72 Pulse Rate [ Porcelain Enamel Repairer ] Respiratory 18 18 18 Rate Blood Pressure 173/101 159/94 168/85 O2 Sat by Pulse 94 L 95 99 Oximetry 10/09/21 06:00 Temperature 98.0 F Pulse Rate 71 Pulse Rate [ Porcelain Enamel Repairer ] Respiratory 18 Rate Blood Pressure 157/52 O2 Sat by Pulse 96 Oximetry Medical Decision Making - Medical Decision Making I did have prolonged discussion with the patient where I reviewed the indications, risks and benefits related with the imaging studies on that this point the patient states her symptoms have all resolved and she wants to go home. She does understand there is small risk of having missed something without the imaging studies with the patient states she has follow-up with cardiology in one day and will return here if any symptoms recur in the interim. - Lab Data Result diagrams: 10/09/21 03:34 10/09/21 03:34 Lab Results 10/09/21 10/09/21 10/09/21 Range/Units 03:34 03:34 03:34 WBC 9.1 (3.8-10.6) k/uL RBC 5.20 (3.80-5.40) m/uL Hgb 15.3 (11.4-16.0) gm/dL Hct 46.8 H (34.0-46.0) % MCV 90.0 (80.0-100.0) fL MCH 29.5 (25.0-35.0) pg MCHC 32.7 (31.0-37.0) g/dL RDW 14.8 (11.5-15.5) % Plt Count 245 (150-450) k/uL MPV 7.4 Neutrophils % 63 % Lymphocytes % 28 % Monocytes % 5 % Eosinophils % 2 % Basophils % 0 % Neutrophils # 5.7 (1.3-7.7) k/uL Lymphocytes # 2.5 (1.0-4.8) k/uL Monocytes # 0.5 (0-1.0) k/uL Eosinophils # 0.2 (0-0.7) k/uL Basophils # 0.0 (0-0.2) k/uL PT 10.7 (9.0-12.0) sec INR 1.0 (<1.2) APTT 24.6 (22.0-30.0) sec D-Dimer 0.38 (<0.60) mg/L FEU Sodium 139 (137-145) mmol/L Potassium 4.1 (3.5-5.1) mmol/L Chloride 106 (98-107) mmol/L Carbon Dioxide 24 (22-30) mmol/L Anion Gap 9 mmol/L BUN 20 H (7-17) mg/dL Creatinine 0.77 (0.52-1.04) mg/dL Est GFR (CKD-EPI)AfAm >90 (>60 ml/min/1.73 sqM) Est GFR (CKD-EPI)NonAf >90 (>60 ml/min/1.73 sqM) Glucose 136 H (74-99) mg/dL Calcium 9.8 (8.4-10.2) mg/dL Magnesium 1.8 (1.6-2.3) mg/dL Total Bilirubin 0.5 (0.2-1.3) mg/dL AST 20 (14-36) U/L ALT 15 (4-34) U/L Alkaline Phosphatase 78 (38-126) U/L Troponin I (0.000-0.034) ng/mL Total Protein 7.1 (6.3-8.2) g/dL Albumin 4.3 (3.5-5.0) g/dL Amylase 50 (30-110) U/L Lipase 56 (23-300) U/L 10/09/ Range/Units 03:34 WBC (3.8-10.6) k/uL RBC (3.80-5.40) m/uL Hgb (11.4-16.0) gm/dL Hct (34.0-46.0) % MCV (80.0-100.0) fL MCH (25.0-35.0) pg MCHC (31.0-37.0) g/dL RDW (11.5-15.5) % Plt Count (150-450) k/uL MPV Neutrophils % % Lymphocytes % % Monocytes % % Eosinophils % % Basophils % % Neutrophils # (1.3-7.7) k/uL Lymphocytes # (1.0-4.8) k/uL Monocytes # (0-1.0) k/uL Eosinophils # (0-0.7) k/uL Basophils # (0-0.2) k/uL PT (9.0-12.0) sec INR (<1.2) APTT (22.0-30.0) sec D-Dimer (<0.60) mg/L FEU Sodium (137-145) mmol/L Potassium (3.5-5.1) mmol/L Chloride (98-107) mmol/L Carbon Dioxide (22-30) mmol/L Anion Gap mmol/L BUN (7-17) mg/dL Creatinine (0.52-1.04) mg/dL Est GFR (CKD-EPI)AfAm (>60 ml/min/1.73 sqM) Est GFR (CKD-EPI)NonAf (>60 ml/min/1.73 sqM) Glucose (74-99) mg/dL Calcium (8.4-10.2) mg/dL Magnesium (1.6-2.3) mg/dL Total Bilirubin (0.2-1.3) mg/dL AST (14-36) U/L ALT (4-34) U/L Alkaline Phosphatase (38-126) U/L Troponin I <0.012 (0.000-0.034) ng/mL Total Protein (6.3-8.2) g/dL Albumin (3.5-5.0) g/dL Amylase (30-110) U/L Lipase (23-300) U/L Disposition Clinical Impression: Headache, Hypertension, Back pain Disposition: HOME SELF-CARE Condition: Undetermined Instructions (If sedation given, give patient instructions): Hypertension (ED) Additional Instructions: As we discussed, keep your appointment with the air carrier operations inspector. As we discussed, return if any of your symptoms recur or if any new symptoms develop. Is patient prescribed a controlled substance at d/c from ED?: No Referrals: James Harvey DO [Primary Care Provider] - 1-2 days Elmo Rivera MD [STAFF PHYSICIAN] - 1-2 days
== END 2021-10-09 06:05 | disposition home or self-care (01) ==
LOC: EC 02:50
DX: I11.0 Hypertensive heart disease with heart failure (principal); M54.6 Pain in thoracic spine; I50.9 Heart failure, unspecified; J44.9 Chronic obstructive pulmonary disease, unspecified; G40.909 Epilepsy, unspecified, not intractable, without status epilepticus; F17.200 Nicotine dependence, unspecified, uncomplicated; F12.90 Cannabis use, unspecified, uncomplicated; Z79.84 Long term (current) use of oral hypoglycemic drugs; Z79.01 Long term (current) use of anticoagulants; Z79.51 Long term (current) use of inhaled steroids; Z79.899 Other long term (current) drug therapy
CPT/HCPCS: 36415; 71046; 80053; 82150; 83690; 83735; 84484; 85025; 85379; 85610; 85730; 93005; 96374; 99284

== ENCOUNTER 2021-11-08 14:17 | Emergency (ER) | payer OTHER ==
[2021-11-08 14:23] VITALS: TEMP 97.5
[2021-11-08] MEDS ORDERED: ASPIRIN 81 MG PO STA (14:32)
[2021-11-08] MEDS ORDERED: LORazepam 2 MG/ML INJ IV STA (14:34)
--- NOTE | 2021-11-08 14:47 | ED ---
General Adult HPI - General Chief complaint: Neuro Symptoms/Deficit Stated complaint: Paresthesias Time Seen by Provider: 11/08/21 14:29 Source: patient, RN notes reviewed Mode of arrival: ambulatory Limitations: no limitations - History of Present Illness Initial comments: Patient is a pleasant 46-year-old female presenting to the emergency department with multiple complaints. Onset of symptoms was approximately 3 months ago. Patient complains of tingling all over her body. This includes her arms and her legs and her face. Both sides. Patient feels fatigued. Patient has had chest discomfort that has not changed in the past 2-3 months. This is described as pressure. Blood pressure was high at home however patient is unclear how high. - Related Data Home Medications Medication Instructions Recorded Confirmed Fluticasone/Salmeterol [Advair 1 puff INHALATION RT-BID 09/06/21 11/08/21 500-50 Diskus] Ipratropium-Albuterol Nebulize 3 ml INHALATION RT-Q6H PRN 09/06/21 11/08/21 [Duoneb 0.5 mg-3 mg/3 ml Soln] Rizatriptan Benzoate [Rizatriptan] 10 mg PO BID PRN 09/06/21 11/08/21 Simvastatin [Zocor] 10 mg PO HS 09/06/21 11/08/21 glipiZIDE [Glucotrol] 5 mg PO W/SUPPER 09/06/21 11/08/21 Aspirin EC [Ecotrin Low Dose] 81 mg PO W/SUPPER 10/11/21 11/08/21 Carvedilol [Coreg] 25 mg PO BID-W/MEALS 10/11/21 11/08/21 Magnesium 300 mg PO DAILY 10/11/21 11/08/21 Albuterol Inhaler [Ventolin Hfa 1 puff INHALATION RT-Q6H PRN 11/08/21 11/08/21 Inhaler] Furosemide [Lasix] 40 mg PO BID 11/08/21 11/08/21 Losartan Potassium 50 mg PO DAILY 11/08/21 11/08/21 Mupirocin 2% Oint [Bactroban 2% 1 applic TOPICAL BID PRN 11/08/21 11/08/21 Oint] Potassium Chloride ER [K-Dur 20] 20 meq PO BID 11/08/21 11/08/21 Previous Rx's Medication Instructions Recorded Apixaban [Eliquis] 5 mg PO BID #60 tab 09/07/21 Allergies Allergy/AdvReac Type Severity Reaction Status Date / Time pregabalin [From Lyrica] Allergy Unknown Unknown Verified 11/08/21 14:23 acetylcysteine Allergy Swelling Verified 11/08/21 14:23 hydromorphone HCl AdvReac headache Verified 11/08/21 14:23 [From Dilaudid] BERRIES Allergy Anaphylaxis Uncoded 11/08/21 14:23 Review of Systems ROS Statement: Those systems with pertinent positive or pertinent negative responses have been documented in the HPI. ROS Other: All systems not noted in ROS Statement are negative. Constitutional: Denies: fever Eyes: Denies: eye pain ENT: Denies: ear pain Respiratory: Denies: cough, dyspnea Cardiovascular: Reports: as per HPI Endocrine: Reports: fatigue Gastrointestinal: Denies: abdominal pain, vomiting Genitourinary: Denies: dysuria Musculoskeletal: Denies: back pain Skin: Denies: rash Neurological: Reports: paresthesias Past Medical History Past Medical History: Heart Failure, COPD, GERD/Reflux, Hypertension, Seizure Disorder, Sleep Apnea/CPAP/BIPAP Additional Past Medical History / Comment(s): mult kidney stones, HX pneumonia /vented-2011, peptic ulcers, Sleep apnea-no device currently, bilateral occipital neuritis, headaches, vertigo, neuropathy;"legs give out at times". States has "convulsions" "I get numb,fall asleep,and shake, but I'm aware of my surroundings" hx of diverticulitis and colon polyps, hemmorhoids History of Any Multi-Drug Resistant Organisms: None Reported Past Surgical History: Cholecystectomy, Hernia Repair Additional Past Surgical History / Comment(s): brain surgery 2013 for seizures & headaches, Right ovary/tube removed 2009, D&C, Picc line insertion since removed, Kidney stone surgically removed & lithotripsy., Laproscopic Cristy Fundoplasty. Colonoscopy, Past Anesthesia/Blood Transfusion Reactions: No Reported Reaction Past Psychological History: No Psychological Hx Reported Smoking Status: Current every day smoker Past Alcohol Use History: Rare Past Drug Use History: Marijuana - Past Family History Father Family Medical History: AFIB, Diabetes Mellitus, Hypertension Additional Family Medical History / Comment(s): Father is alive at age 67 with history of atrial fibrillation, diabetes, hypertension, pacemaker. Mother Family Medical History: Cancer Additional Family Medical History / Comment(s): Mother of pancreatic cancer at the age of 58yrs. Maternal cousin had pancreatic cancer. Maternal uncle had lung cancer. Sister(s) Family Medical History: AICD/Pacemaker Additional Family Medical History / Comment(s): the patient has one sister with AICD. Second sister has no major medical problems. Patient's 1 brother that is healthy. Patient has one son and one daughter with no major medical problems. General Exam Limitations: no limitations General appearance: alert, in no apparent distress Head exam: Present: normocephalic Eye exam: Present: normal appearance, PERRL Neck exam: Present: normal inspection Respiratory exam: Present: normal lung sounds bilaterally Cardiovascular Exam: Present: regular rate, normal rhythm Expanded Peripheral pulses: 2+: Radial (R), Radial (L), Dorsalis Pedis (R), Dorsalis Pedis (L) GI/Abdominal exam: Present: soft. Absent: tenderness Extremities exam: Present: normal inspection. Absent: pedal edema, calf tenderness Neurological exam: Present: alert, oriented X3. Absent: motor sensory deficit Psychiatric exam: Present: normal affect, normal mood Skin exam: Present: normal color Course Vital Signs 11/08/21 11/08/21 14:20 14:30 Temperature 97.5 F L Pulse Rate 78 Respiratory 18 18 Rate Blood Pressure 166/101 O2 Sat by Pulse 95 Oximetry EKG Findings - EKG Comments: EKG Findings:: Normal sinus rhythm rate 72. [place] 172. QRS 150. QT 458. QTC 501. Left axis. Left bundle branch block. No acute ST change. Medical Decision Making - Medical Decision Making Patient is a candidate for monoclonal antibodies and will receive this. Patient and family updated on results. Offer was made to discuss case with the admitting physician however patient refuses and would like to go home. - Lab Data Result diagrams: 11/08/21 14:48 11/08/21 14:48 Lab Results 11/08/21 11/08/21 11/08/21 Range/Units 14:48 14:48 14:48 WBC 8.4 (3.8-10.6) k/uL RBC 5.83 H (3.80-5.40) m/uL Hgb 17.5 H (11.4-16.0) gm/dL Hct 52.6 H (34.0-46.0) % MCV 90.2 (80.0-100.0) fL MCH 30.0 (25.0-35.0) pg MCHC 33.3 (31.0-37.0) g/dL RDW 15.5 (11.5-15.5) % Plt Count 245 (150-450) k/uL MPV 7.2 Neutrophils % 62 % Lymphocytes % 30 % Monocytes % 5 % Eosinophils % 1 % Basophils % 0 % Neutrophils # 5.2 (1.3-7.7) k/uL Lymphocytes # 2.5 (1.0-4.8) k/uL Monocytes # 0.4 (0-1.0) k/uL Eosinophils # 0.1 (0-0.7) k/uL Basophils # 0.0 (0-0.2) k/uL PT 11.0 (9.0-12.0) sec INR 1.0 (<1.2) APTT 23.6 (22.0-30.0) sec D-Dimer 0.38 (<0.60) mg/L FEU Sodium (137-145) mmol/L Potassium (3.5-5.1) mmol/L Chloride (98-107) mmol/L Carbon Dioxide (22-30) mmol/L Anion Gap mmol/L BUN (7-17) mg/dL Creatinine (0.52-1.04) mg/dL Est GFR (CKD-EPI)AfAm (>60 ml/min/1.73 sqM) Est GFR (CKD-EPI)NonAf (>60 ml/min/1.73 sqM) Glucose (74-99) mg/dL Calcium (8.4-10.2) mg/dL Magnesium (1.6-2.3) mg/dL Total Bilirubin (0.2-1.3) mg/dL AST (14-36) U/L ALT (4-34) U/L Alkaline Phosphatase (38-126) U/L Troponin I (0.000-0.034) ng/mL Total Protein (6.3-8.2) g/dL Albumin (3.5-5.0) g/dL Coronavirus (PCR) Detected A (Not Detectd) 01/20/22 01/20/22 Range/Units 14:48 14:48 WBC (3.8-10.6) k/uL RBC (3.80-5.40) m/uL Hgb (11.4-16.0) gm/dL Hct (34.0-46.0) % MCV (80.0-100.0) fL MCH (25.0-35.0) pg MCHC (31.0-37.0) g/dL RDW (11.5-15.5) % Plt Count (150-450) k/uL MPV Neutrophils % % Lymphocytes % % Monocytes % % Eosinophils % % Basophils % % Neutrophils # (1.3-7.7) k/uL Lymphocytes # (1.0-4.8) k/uL Monocytes # (0-1.0) k/uL Eosinophils # (0-0.7) k/uL Basophils # (0-0.2) k/uL PT (9.0-12.0) sec INR (<1.2) APTT (22.0-30.0) sec D-Dimer (<0.60) mg/L FEU Sodium 138 (137-145) mmol/L Potassium 4.1 (3.5-5.1) mmol/L Chloride 102 (98-107) mmol/L Carbon Dioxide 26 (22-30) mmol/L Anion Gap 10 mmol/L BUN 17 (7-17) mg/dL Creatinine 0.72 (0.52-1.04) mg/dL Est GFR (CKD-EPI)AfAm >90 (>60 ml/min/1.73 sqM) Est GFR (CKD-EPI)NonAf >90 (>60 ml/min/1.73 sqM) Glucose 133 H (74-99) mg/dL Calcium 9.4 (8.4-10.2) mg/dL Magnesium 1.9 (1.6-2.3) mg/dL Total Bilirubin 0.8 (0.2-1.3) mg/dL AST 19 (14-36) U/L ALT 18 (4-34) U/L Alkaline Phosphatase 82 (38-126) U/L Troponin I <0.012 (0.000-0.034) ng/mL Total Protein 8.1 (6.3-8.2) g/dL Albumin 4.6 (3.5-5.0) g/dL Coronavirus (PCR) (Not Detectd) - Radiology Data Radiology results: image reviewed (X-ray shows cardiac megaly. No acute process.) Disposition Clinical Impression: COVID-19 Disposition: HOME SELF-CARE Condition: Stable Instructions (If sedation given, give patient instructions): Coronavirus Disease 2019 (COVID-19), Hypertension (ED) Additional Instructions: Please follow-up with primary care physician in the next day or 2 for recheck. [id number] vitamin C, vitamin D, and zinc. Tylenol as needed for fever or chills or muscle aches. Return for not tolerating fluids, difficulty breathing, chest pain, uncontrolled blood pressure, worsening symptoms or other concerns. Is patient prescribed a controlled substance at d/c from ED?: No Referrals: James Harvey DO [Primary Care Provider] - 1-2 days Time of Disposition: 16:17
[2021-11-08 15:06] LABS: Basophils % (A) 0 %; Eosinophils # (A) 0.1 k/uL (0-0.7); Eosinophils % (A) 1 %; HCT 52.6 % (34.0-46.0); HGB 17.5 gm/dL (11.4-16.0); Lymphocytes # (A) 2.5 k/uL (1.0-4.8); Lymphocytes % (A) 30 %; MCHC 33.3 g/dL (31.0-37.0); MCV 90.2 fL (80.0-100.0); Mean Platelet Volume 7.2; Monocytes # (A) 0.4 k/uL (0-1.0); Monocytes % (A) 5 %; Neutrophils # (A) 5.2 k/uL (1.3-7.7); Neutrophils % (A) 62 %; Platelet Count 245 k/uL (150-450); RBC 5.83 m/uL (3.80-5.40); RDW 15.5 % (11.5-15.5); WBC 8.4 k/uL (3.8-10.6)
[2021-11-08 15:07] LABS: ALT 18 U/L (4-34); AST 19 U/L (14-36); African American GFR (CKD) >90 (>60 ml/min/1.73 sqM); Albumin 4.6 g/dL (3.5-5.0); Alkaline Phosphatase 82 U/L (38-126); Anion Gap 10 mmol/L; Blood Urea Nitrogen 17 mg/dL (7-17); Calcium 9.4 mg/dL (8.4-10.2); Carbon Dioxide 26 mmol/L (22-30); Chloride 102 mmol/L (98-107); Glucose 133 mg/dL (74-99); Magnesium 1.9 mg/dL (1.6-2.3); Non-African American GFR(CKD) >90 (>60 ml/min/1.73 sqM); Potassium 4.1 mmol/L (3.5-5.1); Sodium 138 mmol/L (137-145); Total Bilirubin 0.8 mg/dL (0.2-1.3); Total Protein 8.1 g/dL (6.3-8.2)
--- NOTE | 2021-11-08 15:08 | XR ---
EXAMINATION TYPE: XR chest 2V DATE OF EXAM: 11/08/2021 COMPARISON: Chest x-ray October 10, 2021 HISTORY: Chest pain. TECHNIQUE: Frontal and lateral views of the chest are obtained. FINDINGS: There is no suspicious new focal air space opacity, pleural effusion, or pneumothorax seen . The cardiac silhouette size is stable and mildly enlarged . The osseous structures are intact. O verlying EKG leads are now present. IMPRESSION: Mild cardiomegaly without acute pulmonary process. No significant change from prior.
[2021-11-08 15:15] LABS: Partial Thromboplastin Time 23.6 sec (22.0-30.0)
[2021-11-08] MEDS ORDERED: LOSARTAN 25 MG TAB PO STA (16:01)
[2021-11-08] MEDS ORDERED: ACETAMINOPHEN TAB 500 MG TAB PO STA (16:14)
[2021-11-08] MEDS ORDERED: BAMLANIVIMAB (EUA) 700 MG, ETESEVIMAB (EUA) 1,400 MG in SODIUM CHLORIDE 0.9% 100 ML IVPB ONE (16:30)
[2021-11-08] MEDS ORDERED: SODIUM CHLORIDE 0.9% 50 ML IVPB ONE (16:30)
[2021-11-08 18:11] VITALS: BP 150/85; PULSE 75; RESP 18
== END 2021-11-08 18:33 | disposition home or self-care (01) ==
LOC: EC 14:17
DX: U07.1 COVID-19 (principal); I11.0 Hypertensive heart disease with heart failure; I50.9 Heart failure, unspecified; J44.9 Chronic obstructive pulmonary disease, unspecified; K21.9 Gastro-esophageal reflux disease without esophagitis; G40.909 Epilepsy, unspecified, not intractable, without status epilepticus; F17.200 Nicotine dependence, unspecified, uncomplicated; F12.90 Cannabis use, unspecified, uncomplicated; Z79.84 Long term (current) use of oral hypoglycemic drugs; Z79.82 Long term (current) use of aspirin; Z79.51 Long term (current) use of inhaled steroids; Z79.899 Other long term (current) drug therapy
CPT/HCPCS: 36415; 93005; 85379; 80053; 83735; 84484; 85025; 85610; 85730; 87635; 71046; 99284; 96374; J2060; J3490

== ENCOUNTER 2022-01-09 04:25 | Inpatient (IN) | payer OTHER ==
[2022-01-09 05:05] LABS: Basophils % (A) 0 %; Eosinophils # (A) 0.3 k/uL (0-0.7); Eosinophils % (A) 2 %; HCT 46.5 % (34.0-46.0); HGB 15.6 gm/dL (11.4-16.0); Lymphocytes % (A) 14 %; MCH 31.6 pg (25.0-35.0); MCHC 33.5 g/dL (31.0-37.0); MCV 94.1 fL (80.0-100.0); Mean Platelet Volume 7.5; Monocytes # (A) 0.5 k/uL (0-1.0); Monocytes % (A) 3 %; Neutrophils # (A) 11.6 k/uL (1.3-7.7); Neutrophils % (A) 79 %; Platelet Count 217 k/uL (150-450); RBC 4.95 m/uL (3.80-5.40); RDW 15.9 % (11.5-15.5); WBC 14.7 k/uL (3.8-10.6)
[2022-01-09 05:22] LABS: ALT 21 U/L (4-34); AST 25 U/L (14-36); African American GFR (CKD) >90 (>60 ml/min/1.73 sqM); Albumin 4.4 g/dL (3.5-5.0); Alkaline Phosphatase 69 U/L (38-126); Amylase 69 U/L (30-110); Anion Gap 7 mmol/L; Blood Urea Nitrogen 13 mg/dL (7-17); Calcium 8.9 mg/dL (8.4-10.2); Carbon Dioxide 26 mmol/L (22-30); Chloride 105 mmol/L (98-107); Glucose 136 mg/dL (74-99); Lipase 85 U/L (23-300); Non-African American GFR(CKD) 82 (>60 ml/min/1.73 sqM); Potassium 4.3 mmol/L (3.5-5.1); Sodium 138 mmol/L (137-145); Total Protein 7.7 g/dL (6.3-8.2)
[2022-01-09] MEDS ORDERED: MORPHINE SULFATE 4 MG/ML SYRINGE IV STA (05:30)
[2022-01-09] MEDS ORDERED: fentaNYL (PF) 50 MCG/ML 2 ML AMP IVP STA ×2 (06:02→07:39)
[2022-01-09] MEDS ORDERED: TAMSULOSIN 0.4 MG CAP.ER.24H PO STA (06:07)
--- NOTE | 2022-01-09 06:12 | CT ---
EXAMINATION TYPE: CT abdomen pelvis wo con DATE OF EXAM: 01/09/2022 COMPARISON: 06/05/2018 HISTORY: Left flank pain CT DLP: 1073.4 mGycm Automated exposure control for dose reduction was used. Images obtained from the diaphragm to the floor the pelvis with no contrast. Lung bases are clear. There is no pleural effusion. Heart size is borderline enlarged. No pericardial effusion. Liver spleen and stomach pancreas appear intact. There are clips from cholecystectomy. The bile ducts are not dilated. There is moderate left-sided hydronephrosis and hydroureter. There is 5 mm calculus lower pole left k idney. There is 7 mm obstructing calculus in the distal left ureter. Bladder distends smoothly. There is no inguinal hernia. Uterus is anteverted. No free fluid in the pelvis. Right kidney shows no evid ence of stone or obstruction. There is no retroperitoneal adenopathy. There are multiple diverticula of the descending colon and sigmoid colon. No diverticulitis. No free fluid in the pelvis. Appendix is anterior and appears normal. The lumbar vertebrae have normal alignment. Posterior elements are intact. There is no compression fr acture. Bony pelvis is intact. The hip joints are intact. IMPRESSION: Obstructing calculus distal left ureter with hydronephrosis and hydroureter. Obstruction is new romina red to old exam. Small calculus lower pole left kidney. Normal appendix. Renal obstruction is new compared to old exam. Moderate colonic diverticulosis without diverticulitis.
[2022-01-09 06:17] LABS: Appearance,Urine Cloudy (Clear); Bacteria,Urine Rare /hpf; Bilirubin,Urine Negative (Negative); Blood,Urine Small (Negative); Color,Urine Yellow; Glucose,Urine (UA) Negative (Negative); Ketones,Urine Negative (Negative); Leukocyte Esterase,Urine Large (Negative); Mucus,Urine Rare /hpf; Nitrite,Urine Negative (Negative); Protein,Urine Trace (Negative); RBC,Urine 44 /hpf (0-5); Specific Gravity,Urine 1.011 (1.001-1.035); Squamous Epithelial Cell,Urine 4 /hpf (0-4); Urobilinogen,Urine <2.0 mg/dL (<2.0); WBC,Urine 15 /hpf (0-5)
--- NOTE | 2022-01-09 07:42 | ED ---
Abdominal Pain HPI - General Chief Complaint: Abdominal Pain Stated Complaint: Abdominal pain Time Seen by Provider: 01/09/22 04:35 Source: patient, EMS Mode of arrival: EMS Limitations: physical limitation - History of Present Illness Initial Comments: Patient's 46-year-old woman presenting with severe left-sided flank pain. She states is identical to previous kidney stone. Came on number of hours ago and there is no improvement. She did receive some morphine from EMS with only minimal change. MD Complaint: flank pain -: hour(s) Location: L flank Radiation: LLQ Severity: severe Quality: sharp Consistency: constant Improves With: nothing Worsens With: nothing Associated Symptoms: nausea, vomiting - Related Data Home Medications Medication Instructions Recorded Confirmed Fluticasone/Salmeterol [Advair 1 puff INHALATION RT-BID 09/06/21 01/09/22 500-50 Diskus] Ipratropium-Albuterol Nebulize 3 ml INHALATION RT-Q6H PRN 09/06/21 01/09/22 [Duoneb 0.5 mg-3 mg/3 ml Soln] Rizatriptan Benzoate [Rizatriptan] 10 mg PO BID PRN 09/06/21 01/09/22 Simvastatin [Zocor] 10 mg PO HS 09/06/21 01/09/22 glipiZIDE [Glucotrol] 5 mg PO W/SUPPER 09/06/21 01/09/22 Aspirin EC [Ecotrin Low Dose] 81 mg PO W/SUPPER 10/11/21 01/09/22 Carvedilol [Coreg] 25 mg PO BID-W/MEALS 10/11/21 01/09/22 Magnesium 300 mg PO DAILY 10/11/21 01/09/22 Albuterol Inhaler [Ventolin Hfa 1 puff INHALATION RT-Q6H PRN 11/08/21 01/09/22 Inhaler] Furosemide [Lasix] 40 mg PO BID 11/08/21 01/09/22 Mupirocin 2% Oint [Bactroban 2% 1 applic TOPICAL BID PRN 11/08/21 01/09/22 Oint] Potassium Chloride ER [K-Dur 20] 20 meq PO BID 11/08/21 01/09/22 Losartan Potassium [Cozaar] 100 mg PO DAILY 01/09/22 01/09/22 Previous Rx's Medication Instructions Recorded Apixaban [Eliquis] 5 mg PO BID #60 tab 09/07/21 Ciprofloxacin HCl [Cipro] 500 mg PO Q12HR 7 Days #7 tab 01/12/22 HYDROcodone/APAP 10-325MG [[place] 1 each PO Q6H PRN #28 tab 01/12/22 10-325] Allergies Allergy/AdvReac Type Severity Reaction Status Date / Time pregabalin [From Lyrica] Allergy Unknown Unknown Verified 01/10/22 07:13 acetylcysteine Allergy Swelling Verified 01/10/22 07:13 hydromorphone HCl AdvReac headache Verified 01/10/22 07:13 [From Dilaudid] BERRIES Allergy Anaphylaxis Uncoded 01/10/22 07:13 Review of Systems ROS Statement: Those systems with pertinent positive or pertinent negative responses have been documented in the HPI. ROS Other: All systems not noted in ROS Statement are negative. Constitutional: Denies: fever, chills Respiratory: Denies: cough, dyspnea Cardiovascular: Denies: chest pain Gastrointestinal: Reports: abdominal pain, nausea, vomiting. Denies: diarrhea, constipation Genitourinary: Denies: dysuria, hematuria Musculoskeletal: Denies: back pain Skin: Denies: rash Neurological: Denies: headache Past Medical History Past Medical History: Heart Failure, COPD, GERD/Reflux, Hypertension, Seizure Disorder, Sleep Apnea/CPAP/BIPAP Additional Past Medical History / Comment(s): mult kidney stones, HX pneumonia /vented-2011, peptic ulcers, Sleep apnea-no device currently, bilateral occipital neuritis, headaches, vertigo, neuropathy;"legs give out at times". States has "convulsions" "I get numb,fall asleep,and shake, but I'm aware of my surroundings" hx of diverticulitis and colon polyps, hemmorhoids History of Any Multi-Drug Resistant Organisms: None Reported Past Surgical History: Cholecystectomy, Hernia Repair Additional Past Surgical History / Comment(s): brain surgery 2012 for seizures & headaches, Right ovary/tube removed 2009, D&C, Picc line insertion since removed, Kidney stone surgically removed & lithotripsy., Laproscopic Cristy Fundoplasty. Colonoscopy, Past Anesthesia/Blood Transfusion Reactions: No Reported Reaction Past Psychological History: No Psychological Hx Reported Smoking Status: Current every day smoker Past Alcohol Use History: Rare Past Drug Use History: Marijuana - Past Family History Father Family Medical History: AFIB, Diabetes Mellitus, Hypertension Additional Family Medical History / Comment(s): Father is alive at age 67 with history of atrial fibrillation, diabetes, hypertension, pacemaker. Mother Family Medical History: Cancer Additional Family Medical History / Comment(s): Mother of pancreatic cancer at the age of 58yrs. Maternal cousin had pancreatic cancer. Maternal uncle had lung cancer. Sister(s) Family Medical History: AICD/Pacemaker Additional Family Medical History / Comment(s): the patient has one sister with AICD. Second sister has no major medical problems. Patient's 1 brother that is healthy. Patient has one son and one daughter with no major medical problems. General Exam Limitations: physical limitation General appearance: alert, in distress Head exam: Present: atraumatic, normocephalic Eye exam: Present: normal appearance Neck exam: Present: normal inspection Respiratory exam: Present: normal lung sounds bilaterally. Absent: respiratory distress, wheezes, rales, rhonchi, stridor Cardiovascular Exam: Present: regular rate, normal rhythm, normal heart sounds. Absent: systolic murmur, diastolic murmur, rubs, gallop GI/Abdominal exam: Present: soft. Absent: distended, tenderness, guarding, rebound, rigid, mass Extremities exam: Present: normal inspection, normal capillary refill Back exam: Present: normal inspection, CVA tenderness (L). Absent: CVA tenderness (R) Neurological exam: Present: alert Skin exam: Present: warm, dry, intact, normal color. Absent: rash Course Vital Signs 01/09/22 01/09/22 01/09/22 04:32 04:49 06:00 Temperature 97.6 F Pulse Rate 87 88 77 Respiratory 22 22 18 Rate Blood Pressure 174/110 192/114 189/97 O2 Sat by Pulse 94 L 97 Oximetry 01/09/22 01/09/22 01/09/22 07:00 08:00 12:36 Temperature 98 F Pulse Rate 95 98 Respiratory 18 18 Rate Blood Pressure 167/103 168/98 O2 Sat by Pulse 98 98 Oximetry 01/09/22 15:00 Temperature Pulse Rate 89 Respiratory 18 Rate Blood Pressure 166/90 O2 Sat by Pulse 100 Oximetry Medical Decision Making - Lab Data Result diagrams: 01/11/22 06:53 01/12/22 08:20 Lab Results 01/09/22 01/09/22 01/09/22 Range/Units 04:46 04:46 04:46 WBC 14.7 H (3.8-10.6) k/uL RBC 4.95 (3.80-5.40) m/uL Hgb 15.6 (11.4-16.0) gm/dL Hct 46.5 H (34.0-46.0) % MCV 94.1 (80.0-100.0) fL MCH 31.6 (25.0-35.0) pg MCHC 33.5 (31.0-37.0) g/dL RDW 15.9 H (11.5-15.5) % Plt Count 217 (150-450) k/uL MPV 7.5 Neutrophils % 79 % Lymphocytes % 14 % Monocytes % 3 % Eosinophils % 2 % Basophils % 0 % Neutrophils # 11.6 H (1.3-7.7) k/uL Lymphocytes # 2.0 (1.0-4.8) k/uL Monocytes # 0.5 (0-1.0) k/uL Eosinophils # 0.3 (0-0.7) k/uL Basophils # 0.0 (0-0.2) k/uL Sodium 138 (137-145) mmol/L Potassium 4.3 (3.5-5.1) mmol/L Chloride 105 (98-107) mmol/L Carbon Dioxide 26 (22-30) mmol/L Anion Gap 7 mmol/L BUN 13 (7-17) mg/dL Creatinine 0.86 (0.52-1.04) mg/dL Est GFR (CKD-EPI)AfAm >90 (>60 ml/min/1.73 sqM) Est GFR (CKD-EPI)NonAf 82 (>60 ml/min/1.73 sqM) Glucose 136 H (74-99) mg/dL Plasma Lactic Acid [place] 1.1 (0.7-2.0) mmol/L Calcium 8.9 (8.4-10.2) mg/dL Total Bilirubin 1.0 (0.2-1.3) mg/dL AST 25 (14-36) U/L ALT 21 (4-34) U/L Alkaline Phosphatase 69 (38-126) U/L Total Protein 7.7 (6.3-8.2) g/dL Albumin 4.4 (3.5-5.0) g/dL Amylase 69 (30-110) U/L Lipase 85 (23-300) U/L Urine Color Urine Appearance (Clear) Urine pH (5.0-8.0) Ur Specific [place] (1.001-1.035) Urine Protein (Negative) Urine Glucose (UA) (Negative) Urine Ketones (Negative) Urine Blood (Negative) Urine Nitrite (Negative) Urine Bilirubin (Negative) Urine Urobilinogen (<2.0) mg/dL Ur Leukocyte Esterase (Negative) Urine RBC (0-5) /hpf Urine WBC (0-5) /hpf Ur Squamous Epith Cells (0-4) /hpf Urine Bacteria (None) /hpf Urine Mucus (None) /hpf Urine HCG, Qual (Not Detectd) 01/09/22 01/09/22 Range/Units 05:48 05:48 WBC (3.8-10.6) k/uL RBC (3.80-5.40) m/uL Hgb (11.4-16.0) gm/dL Hct (34.0-46.0) % MCV (80.0-100.0) fL MCH (25.0-35.0) pg MCHC (31.0-37.0) g/dL RDW (11.5-15.5) % Plt Count (150-450) k/uL MPV Neutrophils % % Lymphocytes % % Monocytes % % Eosinophils % % Basophils % % Neutrophils # (1.3-7.7) k/uL Lymphocytes # (1.0-4.8) k/uL Monocytes # (0-1.0) k/uL Eosinophils # (0-0.7) k/uL Basophils # (0-0.2) k/uL Sodium (137-145) mmol/L Potassium (3.5-5.1) mmol/L Chloride (98-107) mmol/L Carbon Dioxide (22-30) mmol/L Anion Gap mmol/L BUN (7-17) mg/dL Creatinine (0.52-1.04) mg/dL Est GFR (CKD-EPI)AfAm (>60 ml/min/1.73 sqM) Est GFR (CKD-EPI)NonAf (>60 ml/min/1.73 sqM) Glucose (74-99) mg/dL Plasma Lactic Acid [place] (0.7-2.0) mmol/L Calcium (8.4-10.2) mg/dL Total Bilirubin (0.2-1.3) mg/dL AST (14-36) U/L ALT (4-34) U/L Alkaline Phosphatase (38-126) U/L Total Protein (6.3-8.2) g/dL Albumin (3.5-5.0) g/dL Amylase (30-110) U/L Lipase (23-300) U/L Urine Color Yellow Urine Appearance Cloudy H (Clear) Urine pH 5.0 (5.0-8.0) Ur Specific [place] 1.011 (1.001-1.035) Urine Protein Trace H (Negative) Urine Glucose (UA) Negative (Negative) Urine Ketones Negative (Negative) Urine Blood Small H (Negative) Urine Nitrite Negative (Negative) Urine Bilirubin Negative (Negative) Urine Urobilinogen <2.0 (<2.0) mg/dL Ur Leukocyte Esterase Large H (Negative) Urine RBC 44 H (0-5) /hpf Urine WBC 15 H (0-5) /hpf Ur Squamous Epith Cells 4 (0-4) /hpf Urine Bacteria Rare H (None) /hpf Urine Mucus Rare H (None) /hpf Urine HCG, Qual Not Detected (Not Detectd) Disposition Clinical Impression: Kidney stone on left side, Calculus of kidney Disposition: ADMITTED IP TO THIS [facility] Condition: Fair Is patient prescribed a controlled substance at d/c from ED?: No
[2022-01-09] MEDS ORDERED: NALOXONE 0.4 MG/ML 1 ML VIAL IV PRN (08:14)
[2022-01-09] MEDS ORDERED: fentaNYL (PF) 50 MCG/ML 2 ML AMP IVP PRN ×2 (08:17→10:30)
[2022-01-09] MEDS ORDERED: MORPHINE SULFATE 2 MG/ML SYRINGE IVP STA (08:27)
[2022-01-09] MEDS: MORPHINE SULFATE 4 MG/ML SYRINGE IV STA ×2 (08:31→08:36)
[2022-01-09] MEDS: SODIUM CHLORIDE 0.9% 1,000 ML IV SCH (09:20)
[2022-01-09] MEDS: HYDROcodone/APAP 10-325MG 1 EACH TAB PO PRN ×3 (09:21→14:49)
--- NOTE | 2022-01-09 09:21 | P.HPIM ---
History of Present Illness Patient is a 46-year-old female with past medical history of kidney stone, COPD, GERD/reflux, essential hypertension, seizure disorder and congestive heart failure that presents to Hospital complaining of left flank pain that started yesterday. Currently during my examination patient is in excruciating pain currently rating the pain a 9 out of 10. Describes that sharp that is radiating from the left flank area to her bladder. Patient denies any episodes of fever, chills, nausea or vomiting. In the emergency department computed tomography scan of the abdomen and pelvis was completed which showed an obstructing calculus distal left ureter with hydronephrosis and hydroureter. Obstruction is new compared. THERE IS ALSO A SMALL FOCUS IN THE LEFT LOWER POLE. CBC reviewed showing leukocytosis, BNP unremarkable creatinine 0.86. Urinalysis significant for pyuria. Patient has been started on IV Rocephin. Case discussed with RN present at bedside. Urology has been consulted and contacted by the emergency department. Past Medical History Past Medical History: Heart Failure, COPD, GERD/Reflux, Hypertension, Seizure Disorder, Sleep Apnea/CPAP/BIPAP Additional Past Medical History / Comment(s): mult kidney stones, HX pneumonia /vented-2011, peptic ulcers, Sleep apnea-no device currently, bilateral occipital neuritis, headaches, vertigo, neuropathy;"legs give out at times". States has "convulsions" "I get numb,fall asleep,and shake, but I'm aware of my surroundings" hx of diverticulitis and colon polyps, hemmorhoids History of Any Multi-Drug Resistant Organisms: None Reported Past Surgical History: Cholecystectomy, Hernia Repair Additional Past Surgical History / Comment(s): brain surgery 2013 for seizures & headaches, Right ovary/tube removed 2009, D&C, Picc line insertion since removed, Kidney stone surgically removed & lithotripsy., Laproscopic Cristy Fundoplasty. Colonoscopy, Past Anesthesia/Blood Transfusion Reactions: No Reported Reaction Past Psychological History: No Psychological Hx Reported Smoking Status: Current every day smoker Past Alcohol Use History: Rare Past Drug Use History: Marijuana - Past Family History Father Family Medical History: AFIB, Diabetes Mellitus, Hypertension Additional Family Medical History / Comment(s): Father is alive at age 67 with history of atrial fibrillation, diabetes, hypertension, pacemaker. Mother Family Medical History: Cancer Additional Family Medical History / Comment(s): Mother of pancreatic cancer at the age of 58yrs. Maternal cousin had pancreatic cancer. Maternal uncle had lung cancer. Sister(s) Family Medical History: AICD/Pacemaker Additional Family Medical History / Comment(s): the patient has one sister with AICD. Second sister has no major medical problems. Patient's 1 brother that is healthy. Patient has one son and one daughter with no major medical problems. Medications and Allergies Home Medications Medication Instructions Recorded Confirmed Type Fluticasone/Salmeterol [Advair 1 puff INHALATION RT-BID 09/06/21 11/08/21 History 500-50 Diskus] Ipratropium-Albuterol Nebulize 3 ml INHALATION RT-Q6H PRN 09/06/21 11/08/21 History [Duoneb 0.5 mg-3 mg/3 ml Soln] Rizatriptan Benzoate [Rizatriptan] 10 mg PO BID PRN 09/06/21 11/08/21 History Simvastatin [Zocor] 10 mg PO HS 09/06/21 11/08/21 History glipiZIDE [Glucotrol] 5 mg PO W/SUPPER 09/06/21 11/08/21 History Apixaban [Eliquis] 5 mg PO BID #60 tab 09/07/21 11/08/21 Rx Aspirin EC [Ecotrin Low Dose] 81 mg PO W/SUPPER 10/11/21 11/08/21 History Carvedilol [Coreg] 25 mg PO BID-W/MEALS 10/11/21 11/08/21 History Magnesium 300 mg PO DAILY 10/11/21 11/08/21 History Albuterol Inhaler [Ventolin Hfa 1 puff INHALATION RT-Q6H PRN 11/08/21 11/08/21 History Inhaler] Furosemide [Lasix] 40 mg PO BID 11/08/21 11/08/21 History Losartan Potassium 50 mg PO DAILY 11/08/21 11/08/21 History Mupirocin 2% Oint [Bactroban 2% 1 applic TOPICAL BID PRN 11/08/21 11/08/21 History Oint] Potassium Chloride ER [K-Dur 20] 20 meq PO BID 11/08/21 11/08/21 History Allergies Allergy/AdvReac Type Severity Reaction Status Date / Time pregabalin [From Lyrica] Allergy Unknown Unknown Verified 01/09/22 04:36 acetylcysteine Allergy Swelling Verified 01/09/22 04:36 hydromorphone HCl AdvReac headache Verified 01/09/22 04:36 [From Dilaudid] BERRIES Allergy Anaphylaxis Uncoded 01/09/22 04:36 Physical Exam Vitals: Vital Signs Temp Pulse Resp BP Pulse Ox 01/09/22 08:00 98 01/09/22 07:00 98 F 95 18 167/103 01/09/22 06:00 77 18 189/97 97 01/09/22 04:49 88 22 192/114 01/09/22 04:32 97.6 F 87 22 174/110 94 L Intake and Output 01/08/22 01/09/22 01/09/22 22:59 06:59 14:59 Other: Weight 100.698 kg Gen. patient is awake alert oriented 3 however excruciating pain Respiratory normal bilateral air entry, no wheezing or rhonchi appreciated Abdomen suprapubic tenderness patient and some left flank pain noted Cardiac normal S1/S2 heard Extremities +1/2 pitting edema noted Results CBC & Chem 7: 01/09/22 04:46 01/09/22 04:46 Labs: Abnormal Lab Results - Last 24 Hours (Table) 01/09/22 01/09/22 01/09/22 Range/Units 04:46 04:46 05:48 WBC 14.7 H (3.8-10.6) k/uL Hct 46.5 H (34.0-46.0) % RDW 15.9 H (11.5-15.5) % Neutrophils # 11.6 H (1.3-7.7) k/uL Glucose 136 H (74-99) mg/dL Urine Appearance Cloudy H (Clear) Urine Protein Trace H (Negative) Urine Blood Small H (Negative) Ur Leukocyte Esterase Large H (Negative) Urine RBC 44 H (0-5) /hpf Urine WBC 15 H (0-5) /hpf Urine Bacteria Rare H (None) /hpf Urine Mucus Rare H (None) /hpf Assessment and Plan Assessment: Assessment: #1 sepsis secondary to urinary tract infection #2 nephrolithiasis #3 hydronephrosis secondary to above #4 congestive heart failure with preserved ejection fraction 40-45% #5 essential hypertension #6 hyperlipidemia #7 atrial fibrillation currently rate controlled on anticoagulation #8 nicotine dependence Plan: -Admit to medicine for close monitoring -Aspiration/fall precaution/HB 30 -Currently nothing by mouth -Pending evaluation by urology -Continue with IV Rocephin -Pain control with 4 mg of morphine every 2 hours for severe pain, IV Toradol for moderate pain, and [place] for mild pain. She is in excruciating pain currently. Management discussed with RN present at bedside. She received 10 mg of morphine in the emergency department and fentanyl. Please monitor respirations closely. Patient is ALLERGIC to Dilaudid and refusing. -Continue with IV fluids, urine culture, blood culture. -DVT prophylaxis -Disposition anticipate discharge once evaluation completed by neurology
[2022-01-09] MEDS: FAMOTIDINE 20 MG TAB PO SCH ×2 (11:16→19:19)
[2022-01-09] MEDS ORDERED: KETOROLAC 15 MG/ML 1 ML VIAL IVP SCH (12:00)
[2022-01-09] MEDS: ONDANSETRON 4 MG/2 ML VIAL IVP PRN ×2 (12:09→19:19)
[2022-01-09] MEDS: MORPHINE SULFATE 4 MG/ML SYRINGE IVP PRN (12:09)
[2022-01-09] MEDS: KETOROLAC 15 MG/ML 1 ML VIAL IVP PRN (14:49)
--- NOTE | 2022-01-09 15:52 | P.GSCN ---
History of Present Illness Consult date: 01/09/22 Reason for Consult: Left renal colic Requesting physician: Sean Marquez History of present illness: The patient is a 46-year-old white female who presents with left flank pain radiating to the left lower abdomen. Her symptoms began yesterday and she describes them as being severe. She has a history of kidney stones, one of which appears to have required stent placement followed by ureteroscopy or extracorporeal shockwave lithotripsy (ESWL). She is a vague historian. She is accompanied by her sister. Review of Systems - Constitutional Denies chills, Denies fever - Genitourinary Genitourinary: Reports flank pain, Reports kidney stones, Denies dysuria, Denies hematuria Past Medical History Past Medical History: Heart Failure, COPD, GERD/Reflux, Hypertension, Seizure Disorder, Sleep Apnea/CPAP/BIPAP Additional Past Medical History / Comment(s): mult kidney stones, HX pneumonia /vented-2011, peptic ulcers, Sleep apnea-no device currently, bilateral occipital neuritis, headaches, vertigo, neuropathy;"legs give out at times". States has "convulsions" "I get numb,fall asleep,and shake, but I'm aware of my surroundings" hx of diverticulitis and colon polyps, hemmorhoids History of Any Multi-Drug Resistant Organisms: None Reported Past Surgical History: Cholecystectomy, Hernia Repair Additional Past Surgical History / Comment(s): brain surgery 2012 for seizures & headaches, Right ovary/tube removed 2009, D&C, Picc line insertion since removed, Kidney stone surgically removed & lithotripsy., Laproscopic Cristy Fundoplasty. Colonoscopy, Past Anesthesia/Blood Transfusion Reactions: No Reported Reaction Past Psychological History: No Psychological Hx Reported Smoking Status: Current every day smoker Past Alcohol Use History: Rare Past Drug Use History: Marijuana - Past Family History Father Family Medical History: AFIB, Diabetes Mellitus, Hypertension Additional Family Medical History / Comment(s): Father is alive at age 67 with history of atrial fibrillation, diabetes, hypertension, pacemaker. Mother Family Medical History: Cancer Additional Family Medical History / Comment(s): Mother of pancreatic cancer at the age of 58yrs. Maternal cousin had pancreatic cancer. Maternal uncle had lung cancer. Sister(s) Family Medical History: AICD/Pacemaker Additional Family Medical History / Comment(s): the patient has one sister with AICD. Second sister has no major medical problems. Patient's 1 brother that is healthy. Patient has one son and one daughter with no major medical problems. Medications and Allergies Home Medications Medication Instructions Recorded Confirmed Type Fluticasone/Salmeterol [Advair 1 puff INHALATION RT-BID 09/06/21 01/09/22 History 500-50 Diskus] Ipratropium-Albuterol Nebulize 3 ml INHALATION RT-Q6H PRN 09/06/21 01/09/22 History [Duoneb 0.5 mg-3 mg/3 ml Soln] Rizatriptan Benzoate [Rizatriptan] 10 mg PO BID PRN 09/06/21 01/09/22 History Simvastatin [Zocor] 10 mg PO HS 09/06/21 01/09/22 History glipiZIDE [Glucotrol] 5 mg PO W/SUPPER 09/06/21 01/09/22 History Apixaban [Eliquis] 5 mg PO BID #60 tab 09/07/21 01/09/22 Rx Aspirin EC [Ecotrin Low Dose] 81 mg PO W/SUPPER 10/11/21 01/09/22 History Carvedilol [Coreg] 25 mg PO BID-W/MEALS 10/11/21 01/09/22 History Magnesium 300 mg PO DAILY 10/11/21 01/09/22 History Albuterol Inhaler [Ventolin Hfa 1 puff INHALATION RT-Q6H PRN 11/08/21 01/09/22 History Inhaler] Furosemide [Lasix] 40 mg PO BID 11/08/21 01/09/22 History Mupirocin 2% Oint [Bactroban 2% 1 applic TOPICAL BID PRN 11/08/21 01/09/22 History Oint] Potassium Chloride ER [K-Dur 20] 20 meq PO BID 11/08/21 01/09/22 History Losartan Potassium [Cozaar] 100 mg PO DAILY 01/09/22 01/09/22 History Allergies Allergy/AdvReac Type Severity Reaction Status Date / Time pregabalin [From Lyrica] Allergy Unknown Unknown Verified 01/09/22 09:45 acetylcysteine Allergy Swelling Verified 01/09/22 09:45 hydromorphone HCl AdvReac headache Verified 01/09/22 09:45 [From Dilaudid] BERRIES Allergy Anaphylaxis Uncoded 01/09/22 09:45 Surgical - Exam Vital Signs Temp Pulse Resp BP Pulse Ox 97.6 F 87 22 174/110 94 L 01/09/22 04:32 01/09/22 04:32 01/09/22 04:32 01/09/22 04:32 01/09/22 04:32 - General well developed, well nourished, moderate distress - Respiratory normal respiratory effort - Abdomen Abdomen: soft, tender (Left-sided tenderness is present), no guarding, no rigid, no rebound, distended - Psychiatric oriented to time, oriented to person, oriented to place, speech is normal, memory intact Results - Labs 01/09/22 04:46 01/09/22 04:46 Abnormal Lab Results - Last 24 Hours (Table) 01/09/22 01/09/22 01/09/22 Range/Units 04:46 04:46 05:48 WBC 14.7 H (3.8-10.6) k/uL Hct 46.5 H (34.0-46.0) % RDW 15.9 H (11.5-15.5) % Neutrophils # 11.6 H (1.3-7.7) k/uL Glucose 136 H (74-99) mg/dL Urine Appearance Cloudy H (Clear) Urine Protein Trace H (Negative) Urine Blood Small H (Negative) Ur Leukocyte Esterase Large H (Negative) Urine RBC 44 H (0-5) /hpf Urine WBC 15 H (0-5) /hpf Urine Bacteria Rare H (None) /hpf Urine Mucus Rare H (None) /hpf Microbiology - Last 24 Hours (Table) 01/09/22 05:48 Urine Culture - Preliminary Urine,Voided Diabetes panel 01/09/22 Range/Units 04:46 Sodium 138 (137-145) mmol/L Potassium 4.3 (3.5-5.1) mmol/L Chloride 105 (98-107) mmol/L Carbon Dioxide 26 (22-30) mmol/L BUN 13 (7-17) mg/dL Creatinine 0.86 (0.52-1.04) mg/dL Glucose 136 H (74-99) mg/dL Calcium 8.9 (8.4-10.2) mg/dL AST 25 (14-36) U/L ALT 21 (4-34) U/L Alkaline Phosphatase 69 (38-126) U/L Total Protein 7.7 (6.3-8.2) g/dL Albumin 4.4 (3.5-5.0) g/dL Calcium panel 01/09/22 Range/Units 04:46 Calcium 8.9 (8.4-10.2) mg/dL Albumin 4.4 (3.5-5.0) g/dL Pituitary panel 01/09/22 Range/Units 04:46 Sodium 138 (137-145) mmol/L Potassium 4.3 (3.5-5.1) mmol/L Chloride 105 (98-107) mmol/L Carbon Dioxide 26 (22-30) mmol/L BUN 13 (7-17) mg/dL Creatinine 0.86 (0.52-1.04) mg/dL Glucose 136 H (74-99) mg/dL Calcium 8.9 (8.4-10.2) mg/dL Adrenal panel 01/09/22 Range/Units 04:46 Sodium 138 (137-145) mmol/L Potassium 4.3 (3.5-5.1) mmol/L Chloride 105 (98-107) mmol/L Carbon Dioxide 26 (22-30) mmol/L BUN 13 (7-17) mg/dL Creatinine 0.86 (0.52-1.04) mg/dL Glucose 136 H (74-99) mg/dL Calcium 8.9 (8.4-10.2) mg/dL Total Bilirubin 1.0 (0.2-1.3) mg/dL AST 25 (14-36) U/L ALT 21 (4-34) U/L Alkaline Phosphatase 69 (38-126) U/L Total Protein 7.7 (6.3-8.2) g/dL Albumin 4.4 (3.5-5.0) g/dL - Imaging CT scan - abdomen: report reviewed, image reviewed Assessment and Plan (1) Calculus of ureter Current Visit: Yes Status: Acute Code(s): N20.1 - CALCULUS OF URETER SNOMED Code(s): 01475322 (2) Hydronephrosis with renal and ureteral calculous obstruction Current Visit: Yes Status: Acute Code(s): N13.2 - HYDRONEPHROSIS WITH RENAL AND URETERAL CALCULOUS OBSTRUCTION SNOMED Code(s): 716806197 Plan: The patient presents with left renal colic. CT scan shows left hydronephrosis due to a 7 mm left distal ureteral calculus. A 5 mm left lower pole renal calculus is also seen. There are no right renal calculi. Urinalysis suggests the possibility of a UTI, but there is no evidence of sepsis. A urine culture was sent. In the meantime, I have recommended that she receive empiric IV antibiotics. Arrangements have been made for her to undergo cystoscopy with left ureteral stent insertion early tomorrow morning. The rationale for this was discussed with the patient and her sister. Stent placement will relieve the ureteral obstruction and provide symptomatic relief. She will then be scheduled to undergo elective cystoscopy, left ureteral stent removal, left ureteroscopy with laser lithotripsy and possible stone basketing in approximately 2 weeks. Risks associated with stent placement include anesthesia, bleeding, infection, ureteral injury, and inability to successfully place a stent. Time with Patient: Greater than 30
[2022-01-09] MEDS ORDERED: CALCIUM CARBONATE 500 MG CHEWABLE PO PRN (17:09)
[2022-01-09] MEDS ORDERED: DEXAMETHASONE SOD PHOSPHATE 4 MG/ML 1 ML VIAL IV ONE (18:10)
[2022-01-09] MEDS ORDERED: LIDOCAINE 1% (10MG/ML) FOR IV START INTRADERMA PRN (18:10)
[2022-01-09] MEDS ORDERED: ONDANSETRON 4 MG/2 ML VIAL IVP ONE (18:10)
[2022-01-09] MEDS ORDERED: METOCLOPRAMIDE 5 MG/ML 2 ML VIAL IVP PRN (21:52)
[2022-01-10] MEDS: KETOROLAC 15 MG/ML 1 ML VIAL IVP PRN (00:57)
[2022-01-10] MEDS: MORPHINE SULFATE 4 MG/ML SYRINGE IVP PRN (01:35)
[2022-01-10] MEDS ORDERED: MORPHINE SULFATE 4 MG/ML SYRINGE IVP STA (03:37)
[2022-01-10] MEDS ORDERED: HYDROmorphone 0.5 MG/0.5 ML SYRINGE IVP PRN (07:00)
[2022-01-10] MEDS ORDERED: IV FLUID CONTINUATION 1,000 ML IV ONE (07:07)
[2022-01-10] MEDS: ONDANSETRON 4 MG/2 ML VIAL IVP PRN (07:07)
[2022-01-10] MEDS ORDERED: fentaNYL (PF) 50 MCG/ML 2 ML AMP ONE (08:07)
[2022-01-10] MEDS ORDERED: MIDAZOLAM 2 MG/2 ML VIAL ONE (08:07)
[2022-01-10] MEDS ORDERED: PROPOFOL 10 MG/ML 20 ML VIAL IV ONE (08:07)
[2022-01-10] MEDS ORDERED: LACTATED RINGERS 1,000 ML IV ONE (08:42)
--- NOTE | 2022-01-10 08:43 | P.OP ---
Date of Procedure: 01/10/22 Preoperative Diagnosis: Left hydronephrosis secondary to left ureteral calculus Postoperative Diagnosis: Left hydronephrosis and left pyonephrosis secondary to left ureteral calculus Procedure(s) Performed: Cystoscopy, left ureteral stent insertion Anesthesia: DOMINGA Surgeon: Ricardo Aguiar Estimated Blood Loss (ml): 0 IV fluids (ml): 300 Pathology: none sent Condition: stable Disposition: PACU Indications for Procedure: The patient is a 46-year-old white female admitted with severe left flank pain. CT scan showed left hydronephrosis due to a 7 mm left distal ureteral calculus. Since the time of admission, she has been afebrile and hemodynamically stable. However, she did have mild leukocytosis. Operative Findings: Purulent drainage from left renal pelvis. Description of Procedure: The patient was taken to the operating room and placed in the dorsolithotomy position, with legs supported in Arley stirrups. The external genitalia was prepped and draped sterilely. The 30 lens was used to introduce the 22-Indonesian Stortz cystoscopic sheath through the urethra and into the bladder under direct vision. The bladder was examined in its entirety. Both ureteral orifices were of normal anatomic location and configuration. No tumors or foreign bodies were seen. An angle-tip 0.035 inch Glidewire was passed through the cystoscope. The left ureteral orifice was cannulated, and the Glidewire was slowly advanced up to the renal pelvis. A 22 cm, 6-Indonesian double-J ureteral stent was placed over the wire. Proper stent positioning was verified fluoroscopically and endoscopically. Purulent fluid drained through the stent. With the beak of the cystoscope immediately adjacent to the distal end of the stent, urine was collected via the cystoscope and sent for culture and sensitivity. The bladder was emptied and the cystoscope removed. The patient tolerated the procedure well was taken to the recovery room in stable condition.
[2022-01-10 09:06] LABS: Basophils # (A) 0.04 X 10*3/uL (0.00-0.10); Basophils % (A) 0.2 %; Eosinophils # (A) 0.05 X 10*3/uL (0.04-0.35); Eosinophils % (A) 0.3 %; HCT 45.9 % (37.2-46.3); HGB 14.2 g/dL (12.0-15.0); Immature Grans, Automated 0.6 %; Lymphocytes # (A) 0.81 X 10*3/uL (0.90-5.00); Lymphocytes % (A) 4.8 %; MCH 30.2 pg (27.0-32.0); MCHC 30.9 g/dL (32.0-37.0); MCV 97.7 fL (80.0-97.0); Mean Platelet Volume 10.6 fL (9.5-12.2); Monocytes # (A) 0.68 X 10*3/uL (0.20-1.00); NRBC Per 100 WBC 0 /100 WBCS (0.0-0.0); Neutrophils # (A) 15.31 X 10*3/uL (1.80-7.70); Neutrophils % (A) 90.1 %; Platelet Count 179 X 10*3/uL (140-440); WBC 16.99 X 10*3/uL (4.50-10.00)
[2022-01-10] MEDS ORDERED: KETOROLAC 15 MG/ML 1 ML VIAL IVP ONE (09:18)
[2022-01-10 09:22] LABS: African American GFR (CKD) 52.1 (60.0-200.0); Anion Gap 11.8 mmol/L (10.00-18.00); BUN/Creat Ratio 15.93 Ratio (12.00-20.00); Blood Urea Nitrogen 22.3 mg/dL (9.0-27.0); Calcium 8.9 mg/dL (8.7-10.3); Carbon Dioxide 25.2 mmol/L (20.0-27.5); Non-African American GFR(CKD) 44.9 (60.0-200.0); Potassium 4.3 mmol/L (3.5-5.5)
--- NOTE | 2022-01-10 09:26 | FL ---
EXAMINATION TYPE: FL guidance operating room DATE OF EXAM: 01/10/2022 HISTORY: Fluoroscopy time 17 seconds of fluoroscopy provided. IMPRESSION: 1. Fluoroscopy time.
[2022-01-10] MEDS: LACTATED RINGERS 1,000 ML IV SCH ×2 (09:42→09:43)
[2022-01-10] MEDS: FAMOTIDINE 20 MG TAB PO SCH (09:51)
[2022-01-10] MEDS: SODIUM CHLORIDE 0.9% 1,000 ML IV SCH (09:51)
[2022-01-10] MEDS ORDERED: RIZATRIPTAN BENZOATE 10 MG PO PRN (11:46)
[2022-01-10] MEDS ORDERED: IPRATROPIUM-ALBUTEROL 3 ML NEB INHALATION PRN (11:46)
[2022-01-10 12:19] LABS: Glucose,Whole Blood 106 mg/dL (75-99)
[2022-01-10] MEDS: HYDROcodone/APAP 10-325MG 1 EACH TAB PO PRN ×3 (12:20→23:10)
[2022-01-10] MEDS: carvediloL 12.5 MG TAB PO SCH ×2 (12:21→17:23)
[2022-01-10] MEDS: INSULIN ASPART (NovoLOG) 100 UNIT/ML VIAL SQ SCH ×3 (12:21→23:09)
[2022-01-10 12:48] LABS: Appearance,Urine Turbid (Clear); Bacteria,Urine Occasional /hpf; Bilirubin,Urine Negative (Negative); Blood,Urine Moderate (Negative); Color,Urine Yellow; Glucose,Urine (UA) Negative (Negative); Ketones,Urine Negative (Negative); Leukocyte Esterase,Urine Large (Negative); Nitrite,Urine Negative (Negative); Protein,Urine 1+ (Negative); RBC,Urine >182 /hpf (0-5); Specific Gravity,Urine 1.014 (1.001-1.035); Squamous Epithelial Cell,Urine 2 /hpf (0-4); Urobilinogen,Urine <2.0 mg/dL (<2.0); WBC,Urine >182 /hpf (0-5)
[2022-01-10] MEDS: FUROSEMIDE 40 MG TAB PO SCH (15:15)
[2022-01-10 17:00] LABS: Glucose,Whole Blood 97 mg/dL (75-99)
[2022-01-10] MEDS: ATORVASTATIN 10 MG TAB PO SCH (19:48)
[2022-01-10] MEDS: POTASSIUM CHLORIDE ER 20 MEQ TAB.ER PO SCH (19:48)
[2022-01-10] MEDS: SYMBICORT 160-4.5 MCG INHALER INHALATION SCH (20:08)
--- NOTE | 2022-01-10 20:28 | P.PN ---
Subjective Progress Note Date: 01/10/22 (delayed charting seen at 1135) Principal diagnosis: flank pain Patient is a 46-year-old female with known history of kidney stones requiring lithotripsy, COPD, GERD, hypertension, and multiple other comorbid conditions who presented to the hospital with complaints of left flank pain. In the ER she underwent an extensive evaluation. On arrival she was found to be hypertensive with a blood pressure 174/110. Urinalysis showed elevated white count at 14. Urinalysis demonstrated elevated white blood cells. She was started on IV fluids and Rocephin. CT abdomen and pelvis demonstrated an obstructing total in the left distal ureter with hydronephrosis and hydroureter. She was admitted for further monitoring. Neurology was consulted. She underwent cystoscopy with left ureteral stent placement on 01/10 with plans to return to the OR for lithotripsy in 2 weeks. Patient seen and examined at bedside. She is frustrated that her stone was "blasted" at this time. She does not understand why she needs a stent or to stay in the hospital. Her white blood cell count when up. Also claims that once we have her urine cultures back appropriate antibiotic she may be discharged home for outpatient follow-up. She is concerned that she is not on her home medications and I discussed that I will resume these for her. General: non toxic, no distress, appears older than stated age, obese Derm: warm, dry Head: atraumatic, normocephalic, symmetric Eyes: EOMI, no lid lag, anicteric sclera Mouth: no lip lesion, mucus membranes moist Cardiovascular: S1S2 reg, no murmur, positive posterior tibial pulse bilateral, Lungs: Coarse breath sounds bilateral, no rhonchi, no rales , no accessory muscle use Abdominal: soft, [tender to palpation diffusely, no guarding, no appreciable organomegaly Ext: no gross muscle atrophy, no edema, no contractures Neuro: CN II-XI grossly intact, no focal neuro deficits Psych: Alert, oriented, appears irritated with standoff affect Assessment/plan: UTI with obstructing left ureteric stent and hydronephrosis -Urology recommendations appreciated: Status post stent placement -Await for urine culture -Continue with Rocephin COPD without exacerbation -Continue bronchodilators Chronic congestive heart failure, unknown ejection fraction -Continue with home Coreg, Lasix, Cozaar -Follow fluid status closely Dyslipidemia -Statin Anticipate home in a.m. if urine cultures are available and white blood cell count improving. Objective - Vital Signs Vital signs: Vital Signs Temp 97.7 F 01/10/22 19:53 Pulse 74 01/10/22 19:53 Resp 16 01/10/22 19:53 BP 102/61 01/10/22 19:53 Pulse Ox 94 L 01/10/22 19:53 Intake & Output 01/10/22 01/10/22 01/11/22 06:59 18:59 06:59 Intake Total 900 Output Total 0 Balance 900 Intake: IV 900 Output: Estimated Blood Loss 0 Other: Voiding Method Bedside Commode Bedside Commode # Voids 2 1 # Bowel Movements 3 - Labs CBC & Chem 7: 01/10/22 04:17 01/10/22 04:17 Labs: Abnormal Lab Results - Last 24 Hours (Table) 01/10/22 01/10/22 01/10/22 Range/Units 04:17 04:17 08:46 WBC 16.99 H (4.50-10.00) X 10*3/uL MCV 97.7 H (80.0-97.0) fL MCHC 30.9 L (32.0-37.0) g/dL RDW 16.0 H (11.5-14.5) % Immature Gran # 0.10 H (0.00-0.04) X 10*3/uL Neutrophils # 15.31 H (1.80-7.70) X 10*3/uL Lymphocytes # 0.81 L (0.90-5.00) X 10*3/uL Est GFR (CKD-EPI)AfAm 52.1 L (60.0-200.0) Est GFR (CKD-EPI)NonAf 44.9 L (60.0-200.0) Glucose 125 H (70-110) mg/dL POC Glucose (mg/dL) (75-99) mg/dL Urine Appearance Turbid H (Clear) Urine Protein 1+ H (Negative) Urine Blood Moderate H (Negative) Ur Leukocyte Esterase Large H (Negative) Urine RBC >182 H (0-5) /hpf Urine WBC >182 H (0-5) /hpf Urine WBC Clumps Many H (None) /hpf Urine Bacteria Occasional H (None) /hpf 01/10/22 Range/Units 12:17 WBC (4.50-10.00) X 10*3/uL MCV (80.0-97.0) fL MCHC (32.0-37.0) g/dL RDW (11.5-14.5) % Immature Gran # (0.00-0.04) X 10*3/uL Neutrophils # (1.80-7.70) X 10*3/uL Lymphocytes # (0.90-5.00) X 10*3/uL Est GFR (CKD-EPI)AfAm (60.0-200.0) Est GFR (CKD-EPI)NonAf (60.0-200.0) Glucose (70-110) mg/dL POC Glucose (mg/dL) 106 H (75-99) mg/dL Urine Appearance (Clear) Urine Protein (Negative) Urine Blood (Negative) Ur Leukocyte Esterase (Negative) Urine RBC (0-5) /hpf Urine WBC (0-5) /hpf Urine WBC Clumps (None) /hpf Urine Bacteria (None) /hpf Microbiology - Last 24 Hours (Table) 01/09/22 05:48 Urine Culture - Final Urine,Voided
[2022-01-10 21:26] LABS: Glucose,Whole Blood 128 mg/dL (75-99)
[2022-01-11] MEDS: MORPHINE SULFATE 4 MG/ML SYRINGE IVP PRN ×2 (01:08→20:39)
[2022-01-11 07:07] LABS: HCT 40.4 % (34.0-46.0); HGB 13.1 gm/dL (11.4-16.0); MCH 31.6 pg (25.0-35.0); MCHC 32.5 g/dL (31.0-37.0); MCV 97.3 fL (80.0-100.0); Mean Platelet Volume 7.9; Platelet Count 170 k/uL (150-450); RBC 4.15 m/uL (3.80-5.40); RDW 15.8 % (11.5-15.5); WBC 10.5 k/uL (3.8-10.6)
[2022-01-11 07:07] LABS: Glucose,Whole Blood 137 mg/dL (75-99)
[2022-01-11 07:17] LABS: African American GFR (CKD) 62 (>60 ml/min/1.73 sqM); Anion Gap 5 mmol/L; Blood Urea Nitrogen 28 mg/dL (7-17); Calcium 8.1 mg/dL (8.4-10.2); Carbon Dioxide 26 mmol/L (22-30); Chloride 102 mmol/L (98-107); Glucose 125 mg/dL (74-99); Non-African American GFR(CKD) 53 (>60 ml/min/1.73 sqM); Potassium 3.8 mmol/L (3.5-5.1); Sodium 133 mmol/L (137-145)
[2022-01-11] MEDS: INSULIN ASPART (NovoLOG) 100 UNIT/ML VIAL SQ SCH ×4 (08:38→20:28)
[2022-01-11] MEDS: SODIUM CHLORIDE 0.9% 1,000 ML IV SCH (08:38)
[2022-01-11] MEDS: LOSARTAN 50 MG TAB PO SCH (08:39)
[2022-01-11] MEDS: FAMOTIDINE 20 MG TAB PO SCH (08:39)
[2022-01-11] MEDS: FUROSEMIDE 40 MG TAB PO SCH ×3 (08:39→15:39)
[2022-01-11] MEDS: carvediloL 12.5 MG TAB PO SCH ×2 (08:39→15:35)
[2022-01-11] MEDS: POTASSIUM CHLORIDE ER 20 MEQ TAB.ER PO SCH ×2 (08:39→20:40)
[2022-01-11] MEDS: ENOXAPARIN 40 MG/0.4 ML SYRINGE SQ SCH (08:39)
[2022-01-11] MEDS: SYMBICORT 160-4.5 MCG INHALER INHALATION SCH ×2 (08:51→20:36)
[2022-01-11 08:58] LABS: Basophils # (A) 0.03 X 10*3/uL (0.00-0.10); Basophils % (A) 0.3 %; Eosinophils # (A) 0.25 X 10*3/uL (0.04-0.35); Eosinophils % (A) 2.4 %; HCT 37.7 % (37.2-46.3); HGB 11.8 g/dL (12.0-15.0); Immature Grans, Automated 0.5 %; Lymphocytes # (A) 1.38 X 10*3/uL (0.90-5.00); Lymphocytes % (A) 13.1 %; MCH 30.6 pg (27.0-32.0); MCHC 31.3 g/dL (32.0-37.0); MCV 97.7 fL (80.0-97.0); Mean Platelet Volume 10.7 fL (9.5-12.2); Monocytes % (A) 4.8 %; NRBC Per 100 WBC 0 /100 WBCS (0.0-0.0); Neutrophils # (A) 8.29 X 10*3/uL (1.80-7.70); Neutrophils % (A) 78.9 %; Platelet Count 141 X 10*3/uL (140-440); RBC 3.86 X 10*6/uL (4.10-5.20); RDW 15.9 % (11.5-14.5)
[2022-01-11 11:09] LABS: Glucose,Whole Blood 120 mg/dL (75-99)
[2022-01-11] MEDS ORDERED: ACETAMINOPHEN TAB 325 MG TAB PO PRN (11:46)
[2022-01-11] MEDS ORDERED: NICOTINE GUM (POLACRILEX) 2 MG GUM BUCCAL PRN (14:36)
[2022-01-11] MEDS: HYDROcodone/APAP 10-325MG 1 EACH TAB PO PRN ×2 (15:36→20:40)
[2022-01-11 17:03] LABS: Glucose,Whole Blood 115 mg/dL (75-99)
[2022-01-11 20:24] LABS: Glucose,Whole Blood 112 mg/dL (75-99)
[2022-01-11] MEDS: ATORVASTATIN 10 MG TAB PO SCH (20:40)
--- NOTE | 2022-01-11 21:32 | P.PN ---
Subjective Progress Note Date: 01/11/22 (delayed charting seen at approx 1500) Principal diagnosis: flank pain Patient is a 46-year-old female with known history of kidney stones requiring lithotripsy, COPD, GERD, hypertension, and multiple other comorbid conditions who presented to the hospital with complaints of left flank pain. In the ER she underwent an extensive evaluation. On arrival she was found to be hypertensive with a blood pressure 174/110. Urinalysis showed elevated white count at 14. Urinalysis demonstrated elevated white blood cells. She was started on IV fluids and Rocephin. CT abdomen and pelvis demonstrated an obstructing total in the left distal ureter with hydronephrosis and hydroureter. She was admitted for further monitoring. Neurology was consulted. She underwent cystoscopy with left ureteral stent placement on 01/10 with plans to return to the OR for lithotripsy in 2 weeks. Patient seen and examined at bedside. Feeling better today. Pain is getting better. Eating and drinking well. No nausea or vomiting. We discussed plan for home in AM once repeat urine Cx available General: non toxic, no distress, appears older than stated age, obese Derm: warm, dry Head: atraumatic, normocephalic, symmetric Eyes: EOMI, no lid lag, anicteric sclera Mouth: no lip lesion, mucus membranes moist Cardiovascular: S1S2 reg, no murmur, positive posterior tibial pulse bilateral, Lungs: Coarse breath sounds bilateral, no rhonchi, no rales , no accessory muscle use Abdominal: soft,nontender to palpation diffusely, no guarding, no appreciable organomegaly Ext: no gross muscle atrophy, no edema, no contractures Neuro: CN II-XI grossly intact, no focal neuro deficits Psych: Alert, oriented, appears irritated with standoff affect Assessment/plan: UTI with obstructing left ureteric stent and hydronephrosis -Urology recommendations appreciated: Status post stent placement -Await for urine culture -Continue with Rocephin COPD without exacerbation -Continue bronchodilators Chronic congestive heart failure, unknown ejection fraction -Continue with home Coreg, Lasix, Cozaar -Follow fluid status closely Dyslipidemia -Statin DM 2 - patient denies - off orals - SSI Anticipate home in a.m. if urine cultures are available and white blood cell count improving. Active Medications Generic Name Dose Route Start Last Admin Trade Name Freq PRN Reason Stop Dose Admin Acetaminophen 650 mg 01/11/22 11:46 01/11/22 11:54 Acetaminophen Tab 325 Mg Tab PO 650 mg Q4HR PRN Administration Fever and/ or Pain Hydrocodone Bitart/Acetaminophen 1 each 01/09/22 09:08 01/11/22 20:40 Hydrocodone/Apap 10-325mg 1 Each Tab PO 1 each Q2HR PRN Administration Moderate Pain Albuterol/Ipratropium 3 ml 01/10/22 11:46 Ipratropium-Albuterol 3 Ml Neb INHALATION RT-Q6H PRN Shortness Of Breath Atorvastatin Calcium 10 mg 01/10/22 21:00 01/11/22 20:40 Atorvastatin 10 Mg Tab PO 10 mg HS ARLINE Administration Budesonide/Formoterol Fumarate 2 puff 01/10/22 20:00 01/11/22 20:36 Symbicort 160-4.5 Mcg Inhaler INHALATION 2 puff RT-BID ARLINE Administration Calcium Carbonate/Glycine 1,000 mg 01/09/22 17:09 01/09/22 17:14 Calcium Carbonate 500 Mg Chewable PO 1,000 mg TID PRN Administration Heartburn Carvedilol 25 mg 01/10/22 12:00 01/11/22 15:35 Carvedilol 12.5 Mg Tab PO 25 mg BID-W/MEALS ARLINE Administration Enoxaparin Sodium 40 mg 01/11/22 09:00 01/11/22 08:39 Enoxaparin 40 Mg/0.4 Ml Syringe SQ 40 mg DAILY ARLINE Administration Famotidine 20 mg 01/11/22 09:00 01/11/22 08:39 Famotidine 20 Mg Tab PO 20 mg DAILY ARLINE Administration Furosemide 40 mg 01/10/22 16:00 01/11/22 15:39 Furosemide 40 Mg Tab PO Not Given BID@0900,1600 [facility] Ceftriaxone Sodium 2 gm/ 50 mls @ 100 mls/hr 01/10/22 09:00 01/11/22 08:37 Sodium Chloride IVPB 100 mls/hr Q24HR ARLINE Administration Protocol Insulin Aspart 0 unit 01/10/22 12:30 01/11/22 20:28 Insulin Aspart (Novolog) 100 Unit/Ml Vial SQ Not Given ACHS [facility]1983 Protocol Ketorolac Tromethamine 30 mg 01/09/22 09:25 01/10/22 00:57 Ketorolac 15 Mg/Ml 1 Ml Vial IVP 01/12/22 09:13 30 mg Q6HR PRN Administration Mild to Moderate Pain Lidocaine HCl 0.1 ml 01/09/22 18:10 Lidocaine 1% (10mg/Ml) For Iv Start INTRADERMA PER PROTOCOL PRN IV Start Losartan Potassium 100 mg 01/11/22 09:00 01/11/22 08:39 Losartan 50 Mg Tab PO 100 mg DAILY ARLINE Administration Metoclopramide HCl 5 mg 01/09/22 21:52 Metoclopramide 5 Mg/Ml 2 Ml Vial IVP Q6HR PRN Nausea And Vomiting Morphine Sulfate 4 mg 01/09/22 09:09 01/11/22 20:39 Morphine Sulfate 4 Mg/Ml Syringe IVP 4 mg Q4HR PRN Administration Severe Pain Naloxone HCl 0.2 mg 01/09/22 08:14 Naloxone 0.4 Mg/Ml 1 Ml Vial IV Q2M PRN Opioid Reversal Nicotine Polacrilex 2 mg 01/11/22 14:36 Nicotine Gum (Polacrilex) 2 Mg Gum BUCCAL Q6HR PRN Nicotine Cravings Non-Formulary Medication 10 mg 01/10/22 11:46 Rizatriptan Benzoate [Rizatriptan] PO BID PRN Migraine Headache Ondansetron HCl 4 mg 01/09/22 12:05 01/10/22 07:07 Ondansetron 4 Mg/2 Ml Vial IVP 4 mg Q6HR PRN Administration Nausea And Vomiting Potassium Chloride 20 meq 01/10/22 21:00 01/11/22 20:40 Potassium Chloride Er 20 Meq Tab.Er PO 20 meq BID ARLINE Administration Objective - Vital Signs Vital signs: Vital Signs Temp 98.6 F 01/11/22 20:00 Pulse 79 01/11/22 20:00 Resp 17 01/11/22 20:00 BP 144/72 01/11/22 20:00 Pulse Ox 100 01/11/22 20:00 Intake & Output 01/11/22 01/11/22 01/12/22 06:59 18:59 06:59 Intake Total 360 Output Total 300 Balance 360 -300 Intake: Oral 360 Output: Urine 300 Other: Voiding Method Bedside Commode Bedside Commode # Voids 2 - Labs CBC & Chem 7: 01/11/22 06:53 01/11/22 06:53 Labs: Abnormal Lab Results - Last 24 Hours (Table) 01/11/22 01/11/22 01/11/22 Range/Units 03:57 06:53 06:53 WBC 10.50 H (4.50-10.00) X 10*3/uL RBC 3.86 L (4.10-5.20) X 10*6/uL Hgb 11.8 L (12.0-15.0) g/dL MCV 97.7 H (80.0-97.0) fL MCHC 31.3 L (32.0-37.0) g/dL RDW 15.9 H 15.8 H (11.5-14.5) % Immature Gran # 0.05 H (0.00-0.04) X 10*3/uL Neutrophils # 8.29 H (1.80-7.70) X 10*3/uL Sodium 133 L (137-145) mmol/L BUN 28 H (7-17) mg/dL Creatinine 1.22 H (0.52-1.04) mg/dL Glucose 125 H (74-99) mg/dL POC Glucose (mg/dL) (75-99) mg/dL Calcium 8.1 L (8.4-10.2) mg/dL 01/11/22 01/11/22 01/11/22 Range/Units 07:05 11:08 17:02 WBC (4.50-10.00) X 10*3/uL RBC (4.10-5.20) X 10*6/uL Hgb (12.0-15.0) g/dL MCV (80.0-97.0) fL MCHC (32.0-37.0) g/dL RDW (11.5-14.5) % Immature Gran # (0.00-0.04) X 10*3/uL Neutrophils # (1.80-7.70) X 10*3/uL Sodium (137-145) mmol/L BUN (7-17) mg/dL Creatinine (0.52-1.04) mg/dL Glucose (74-99) mg/dL POC Glucose (mg/dL) 137 H 120 H 115 H (75-99) mg/dL Calcium (8.4-10.2) mg/dL 01/11/22 Range/Units 20:19 WBC (4.50-10.00) X 10*3/uL RBC (4.10-5.20) X 10*6/uL Hgb (12.0-15.0) g/dL MCV (80.0-97.0) fL MCHC (32.0-37.0) g/dL RDW (11.5-14.5) % Immature Gran # (0.00-0.04) X 10*3/uL Neutrophils # (1.80-7.70) X 10*3/uL Sodium (137-145) mmol/L BUN (7-17) mg/dL Creatinine (0.52-1.04) mg/dL Glucose (74-99) mg/dL POC Glucose (mg/dL) 112 H (75-99) mg/dL Calcium (8.4-10.2) mg/dL Microbiology - Last 24 Hours (Table) 01/10/22 08:46 Urine Culture - Final Urine,Catheterized
[2022-01-12 06:52] LABS: Glucose,Whole Blood 110 mg/dL (75-99)
[2022-01-12] MEDS: HYDROcodone/APAP 10-325MG 1 EACH TAB PO PRN (07:08)
[2022-01-12] MEDS: SYMBICORT 160-4.5 MCG INHALER INHALATION SCH (08:51)
[2022-01-12] MEDS: FAMOTIDINE 20 MG TAB PO SCH (08:58)
[2022-01-12] MEDS: INSULIN ASPART (NovoLOG) 100 UNIT/ML VIAL SQ SCH ×2 (08:58→12:23)
[2022-01-12] MEDS: carvediloL 12.5 MG TAB PO SCH (08:59)
[2022-01-12] MEDS: ENOXAPARIN 40 MG/0.4 ML SYRINGE SQ SCH (09:01)
[2022-01-12] MEDS: LOSARTAN 50 MG TAB PO SCH (09:06)
[2022-01-12 09:11] LABS: African American GFR (CKD) 81 (>60 ml/min/1.73 sqM); Anion Gap 5 mmol/L; Blood Urea Nitrogen 19 mg/dL (7-17); Calcium 8.6 mg/dL (8.4-10.2); Carbon Dioxide 28 mmol/L (22-30); Chloride 103 mmol/L (98-107); Glucose 137 mg/dL (74-99); Non-African American GFR(CKD) 71 (>60 ml/min/1.73 sqM); Potassium 4.6 mmol/L (3.5-5.1); Sodium 136 mmol/L (137-145)
[2022-01-12 09:12] VITALS: BP 158/97; PULSE 58; RESP 20; TEMP 98.4
--- NOTE | 2022-01-12 11:09 | P.PN ---
Progress Note - Text Progress Note Date: 01/12/22 Ms. Richards is feeling much better today. She is afebrile and denies pain. Her initial urine cultures showed multiple organisms. The urine culture obtained at the time of stent placement was negative. However, purulent urine was noted to drain at the time of stent placement. From my standpoint, she may be discharged home on broad-spectrum antibiotics. Arrangements will be made for her to undergo cystoscopy, left ureteral stent removal, left ureteroscopy with laser lithotripsy to remove her left ureteral calculus as well as her left lower pole renal calculus.
[2022-01-12 11:38] LABS: Glucose,Whole Blood 100 mg/dL (75-99)
--- NOTE | 2022-01-12 19:21 | P.DS ---
Providers Date of admission: 01/09/22 08:14 Expected date of discharge: 01/12/22 Attending physician: Ivy Landis MD Consults: 01/09/22 08:15 Consult Physician Urgent Consulting Provider: Ricardo Aguiar Consult Reason/Comments: Left hydronephrosis Do you want consulting provider notified?: Already Contacted [facility] Course: Discharge Diagnosis: UTI with obstructing left ureteric stent and hydronephrosis COPD without exacerbation Chronic congestive heart failure, unknown ejection fraction Dyslipidemia DM 2 Hospital Course: Patient is a 46-year-old female with known history of kidney stones requiring lithotripsy, COPD, GERD, hypertension, and multiple other comorbid conditions who presented to the hospital with complaints of left flank pain. In the ER she underwent an extensive evaluation. On arrival she was found to be hypertensive with a blood pressure 174/110. Urinalysis showed elevated white count at 14. Urinalysis demonstrated elevated white blood cells. She was started on IV fluids and Rocephin. CT abdomen and pelvis demonstrated an obstructing total in the left distal ureter with hydronephrosis and hydroureter. She was admitted for further monitoring. Neurology was consulted. She underwent cystoscopy with left ureteral stent placement on 01/10 with plans to return to the OR for lithotripsy in 2 weeks. Culture came back negative after antibiotics and prior to antibiotics showed genitourinary shabbir. Follow-up: Patient will complete an additional 7 days of Cipro, she'll follow up with Dr. Dudley in his office will call her next week, she will also follow-up with her primary Dr. Harvey Patient seen and examined at bedside. Doing well, No complaints. no nausea, no vomiting, no diarreha. Vital signs reviewed and stable. General: non toxic, no distress, appears at stated age Derm: warm, dry Head: atraumatic, normocephalic, symmetric Eyes: EOMI, no lid lag, anicteric sclera Mouth: no lip lesion, mucus membranes moist Cardiovascular: S1S2 reg, no murmur, positive posterior tibial pulse bilateral, Lungs: CTA bilateral, no rhonchi, no rales , no accessory muscle use Abdominal: soft, nontender to palpation, no guarding, no appreciable organomegaly Ext: no gross muscle atrophy, no edema, no contractures Neuro: CN II-XI grossly intact, no focal neuro deficits Psych: Alert, oriented, appropriate affect A total of 35 minutes of time were spent preparing this complex discharge summary . Patient Condition at Discharge: Fair Plan - Discharge Summary Discharge Rx Participant: No New Discharge Prescriptions: New Ciprofloxacin HCl [Cipro] 500 mg PO Q12HR 7 Days #7 tab HYDROcodone/APAP 10-325MG [[place] 10-325] 1 each PO Q6H PRN #28 tab PRN Reason: Moderate Pain Continue Ipratropium-Albuterol Nebulize [Duoneb 0.5 mg-3 mg/3 ml Soln] 3 ml INHALATION RT-Q6H PRN PRN Reason: Shortness Of Breath Rizatriptan Benzoate [Rizatriptan] 10 mg PO BID PRN PRN Reason: Migraine Headache Apixaban [Eliquis] 5 mg PO BID #60 tab Carvedilol [Coreg] 25 mg PO BID-W/MEALS Magnesium 300 mg PO DAILY Mupirocin 2% Oint [Bactroban 2% Oint] 1 applic TOPICAL BID PRN PRN Reason: Skin Irritation Furosemide [Lasix] 40 mg PO BID Fluticasone/Salmeterol [Advair 500-50 Diskus] 1 puff INHALATION RT-BID Simvastatin [Zocor] 10 mg PO HS glipiZIDE [Glucotrol] 5 mg PO W/SUPPER Aspirin EC [Ecotrin Low Dose] 81 mg PO W/SUPPER Potassium Chloride ER [K-Dur 20] 20 meq PO BID Albuterol Inhaler [Ventolin Hfa Inhaler] 1 puff INHALATION RT-Q6H PRN PRN Reason: Shortness Of Breath Losartan Potassium [Cozaar] 100 mg PO DAILY Discharge Medication List Fluticasone/Salmeterol [Advair 500-50 Diskus] 1 puff INHALATION RT-BID 09/06/21 [History] Ipratropium-Albuterol Nebulize [Duoneb 0.5 mg-3 mg/3 ml Soln] 3 ml INHALATION RT-Q6H PRN 09/06/21 [History] Rizatriptan Benzoate [Rizatriptan] 10 mg PO BID PRN 09/06/21 [History] Simvastatin [Zocor] 10 mg PO HS 09/06/21 [History] glipiZIDE [Glucotrol] 5 mg PO W/SUPPER 09/06/21 [History] Apixaban [Eliquis] 5 mg PO BID #60 tab 09/07/21 [Rx] Aspirin EC [Ecotrin Low Dose] 81 mg PO W/SUPPER 10/11/21 [History] Carvedilol [Coreg] 25 mg PO BID-W/MEALS 10/11/21 [History] Magnesium 300 mg PO DAILY 10/11/21 [History] Albuterol Inhaler [Ventolin Hfa Inhaler] 1 puff INHALATION RT-Q6H PRN 11/08/21 [History] Furosemide [Lasix] 40 mg PO BID 11/08/21 [History] Mupirocin 2% Oint [Bactroban 2% Oint] 1 applic TOPICAL BID PRN 11/08/21 [History] Potassium Chloride ER [K-Dur 20] 20 meq PO BID 11/08/21 [History] Losartan Potassium [Cozaar] 100 mg PO DAILY 01/09/22 [History] Ciprofloxacin HCl [Cipro] 500 mg PO Q12HR 7 Days #7 tab 01/12/22 [Rx] HYDROcodone/APAP 10-325MG [[place] 10-325] 1 each PO Q6H PRN #28 tab 01/12/22 [Rx] Follow up Appointment(s)/Referral(s): Ricardo Aguiar MD [STAFF PHYSICIAN] - 1 Week (office will call you with an appointment ) James Harvey DO [Primary Care Provider] - 1-2 days (Please call office to schedule your appointment) Patient Instructions/Handouts: Constipation (GEN), Acute Kidney Injury (DC), Urinary Tract Infection in Women (DC), Ureteral Stent Placement (DC) Activity/Diet/Wound Care/Special Instructions: Activity: as tolerated Diet: heart healthy, carb consistent Special Instructions: Take all antibiotics as prescirbed Please follow-up with Dr. 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 We wish you well on your journey to better health and your quest for more caffeine!! Discharge Disposition: HOME SELF-CARE
--- NOTE | 2022-01-16 08:01 | CDI ---
Documentation Clarification Form Date: 01/16/2022 07:44:00 AM From: Heather Espinoza Admit Date: 01/09/2022 08:14:00 AM Patient Name: Sis Richards Visit Number: [id number] Discharge Date: 01/12/2022 12:57:00 PM ATTENTION: The Clinical Documentation Specialists (CDI) and [facility] Coding Staff appreciate your assistance in clarifying documentation. Please respond to the clarification below the line at the bottom and electronically sign. The CDI & [facility] Coding staff will review the response and follow-up if needed. Please note: Queries are made part of the Legal Health Record. If you have any questions, please contact the author of this message via ITS. Dr. Nakia Pinzon, Atrial Fibrillation is documented in the ED Note, H&P and consult. Additional clarification regarding the type of atrial fibrillation is requested. History/Risk Factors: UTI w hydronephrosis and calculi, HTN w chronic diastolic CHF, Type 2 DM w neuropathy, COPD, HLD, epilepsy, migraines, GERD Clinical Indicators: Per H&P "atrial fibrillation currently rate controlled on anticoagulation". EKG/telemetry: Normal sinus rhythm Treatment: Home meds Apixaben 5 mg PO BID Please clarify the type of atrial fibrillation, if known: [ ] Chronic [ ] Permanent [ X ] Paroxysmal [ ] Persistent [ ] Other, please specify [ ] Unable to determine [ X ] Paroxysmal MTDD
== END 2022-01-12 12:57 | disposition home or self-care (01) | DRG 660 ==
LOC: EC 04:25 → 5NMEDONC 08:14 → 4SSUR 15:38
PROVIDERS: ADMIT Internal Medicine; ATTEND Internal Medicine
PROC: 0T778DZ Dilation of Left Ureter with Intraluminal Device, Via Natural or Artificial Opening Endoscopic (ICD-10-PCS; principal; 2022-01-10 07:50)
DX: N13.6 Pyonephrosis (principal); I50.32 Chronic diastolic (congestive) heart failure; Z68.41 Body mass index [BMI] 40.0-44.9, adult; E11.40 Type 2 diabetes mellitus with diabetic neuropathy, unspecified; I11.0 Hypertensive heart disease with heart failure; G40.909 Epilepsy, unspecified, not intractable, without status epilepticus; I48.0 Paroxysmal atrial fibrillation; E66.9 Obesity, unspecified; E78.5 Hyperlipidemia, unspecified; F17.200 Nicotine dependence, unspecified, uncomplicated; J44.9 Chronic obstructive pulmonary disease, unspecified; G43.909 Migraine, unspecified, not intractable, without status migrainosus; K21.9 Gastro-esophageal reflux disease without esophagitis; G47.30 Sleep apnea, unspecified; Z71.6 Tobacco abuse counseling; Z79.01 Long term (current) use of anticoagulants; Z79.82 Long term (current) use of aspirin; Z79.51 Long term (current) use of inhaled steroids; Z79.84 Long term (current) use of oral hypoglycemic drugs; Z79.899 Other long term (current) drug therapy; Z87.442 Personal history of urinary calculi; Z87.11 Personal history of peptic ulcer disease; Z87.01 Personal history of pneumonia (recurrent); Z86.010 Personal history of colon polyps; Z87.19 Personal history of other diseases of the digestive system; Z90.49 Acquired absence of other specified parts of digestive tract; Z90.79 Acquired absence of other genital organ(s); Z90.721 Acquired absence of ovaries, unilateral; Z98.890 Other specified postprocedural states; Z88.5 Allergy status to narcotic agent; Z88.8 Allergy status to other drugs, medicaments and biological substances; Z91.018 Allergy to other foods; Z82.49 Family history of ischemic heart disease and other diseases of the circulatory system; Z83.3 Family history of diabetes mellitus; Z80.0 Family history of malignant neoplasm of digestive organs; Z80.1 Family history of malignant neoplasm of trachea, bronchus and lung
CPT/HCPCS: 36415; 74176; 80048; 80053; 81001; 81025; 82150; 83605; 83690; 84484; 85025; 85027; 87086; 88108; 93005; 94640; 96361; 96365; 96375; 96376; 99285

== ENCOUNTER 2022-01-31 09:23 | Inpatient (IN) | payer OTHER ==
--- NOTE | 2022-01-26 07:59 | P.GSHP ---
History of Present Illness H&P Date: 01/26/22 Chief Complaint: Left flank pain The patient is a 46-year-old white female who was admitted in late December with left flank pain radiating to the left lower abdomen. She has a history of kidney stones, one of which appears to have required stent placement followed by ureteroscopy or extracorporeal shockwave lithotripsy (ESWL). CT scan showed evidence of left hydronephrosis due to a 7 mm left distal ureteral calculus. A 5 mm left lower pole renal calculus was also seen. She underwent left ureteral stent insertion on 01/10/2022. Purulent urine drained from the left renal pelvis, but cultures showed only genital shabbir. She was feeling much better at the time of discharge. She now comes for removal of her left distal ureteral calculus and renal calculus. - Constitutional Constitutional: Denies chills, Denies fever - Genitourinary (Female) Genitourinary: Reports flank pain, Reports kidney stones Past Medical History Past Medical History: Heart Failure, COPD, GERD/Reflux, Hypertension, Seizure Disorder, Sleep Apnea/CPAP/BIPAP Additional Past Medical History / Comment(s): mult kidney stones, HX pneumonia /vented-2011, peptic ulcers, Sleep apnea-no device currently, bilateral occipital neuritis, headaches, vertigo, neuropathy;"legs give out at times". States has "convulsions" "I get numb,fall asleep,and shake, but I'm aware of my surroundings" hx of diverticulitis and colon polyps, hemmorhoids History of Any Multi-Drug Resistant Organisms: None Reported Past Surgical History: Cholecystectomy, Hernia Repair Additional Past Surgical History / Comment(s): brain surgery 2013 for seizures & headaches, Right ovary/tube removed 2009, D&C, Picc line insertion since removed, Kidney stone surgically removed & lithotripsy., Laproscopic Cristy Fundoplasty. Colonoscopy, Past Anesthesia/Blood Transfusion Reactions: No Reported Reaction Past Psychological History: No Psychological Hx Reported Smoking Status: Current every day smoker Past Alcohol Use History: Rare Past Drug Use History: Marijuana - Past Family History Father Family Medical History: AFIB, Diabetes Mellitus, Hypertension Additional Family Medical History / Comment(s): Father is alive at age 67 with history of atrial fibrillation, diabetes, hypertension, pacemaker. Mother Family Medical History: Cancer Additional Family Medical History / Comment(s): Mother of pancreatic cancer at the age of 58yrs. Maternal cousin had pancreatic cancer. Maternal uncle had lung cancer. Sister(s) Family Medical History: AICD/Pacemaker Additional Family Medical History / Comment(s): the patient has one sister with AICD. Second sister has no major medical problems. Patient's 1 brother that is healthy. Patient has one son and one daughter with no major medical problems. Medications and Allergies Home Medications Medication Instructions Recorded Confirmed Type Fluticasone/Salmeterol [Advair 1 puff INHALATION RT-BID 09/06/21 01/09/22 History 500-50 Diskus] Ipratropium-Albuterol Nebulize 3 ml INHALATION RT-Q6H PRN 09/06/21 01/09/22 History [Duoneb 0.5 mg-3 mg/3 ml Soln] Rizatriptan Benzoate [Rizatriptan] 10 mg PO BID PRN 09/06/21 01/09/22 History Simvastatin [Zocor] 10 mg PO HS 09/06/21 01/09/22 History glipiZIDE [Glucotrol] 5 mg PO W/SUPPER 09/06/21 01/09/22 History Apixaban [Eliquis] 5 mg PO BID #60 tab 09/07/21 01/09/22 Rx Aspirin EC [Ecotrin Low Dose] 81 mg PO W/SUPPER 10/11/21 01/09/22 History Carvedilol [Coreg] 25 mg PO BID-W/MEALS 10/11/21 01/09/22 History Magnesium 300 mg PO DAILY 10/11/21 01/09/22 History Albuterol Inhaler [Ventolin Hfa 1 puff INHALATION RT-Q6H PRN 11/08/21 01/09/22 History Inhaler] Furosemide [Lasix] 40 mg PO BID 11/08/21 01/09/22 History Mupirocin 2% Oint [Bactroban 2% 1 applic TOPICAL BID PRN 11/08/21 01/09/22 History Oint] Potassium Chloride ER [K-Dur 20] 20 meq PO BID 11/08/21 01/09/22 History Losartan Potassium [Cozaar] 100 mg PO DAILY 01/09/22 01/09/22 History Ciprofloxacin HCl [Cipro] 500 mg PO Q12HR 7 Days #7 tab 01/12/22 Rx HYDROcodone/APAP 10-325MG [[place] 1 each PO Q6H PRN #28 tab 01/12/22 Rx 10-325] Allergies Allergy/AdvReac Type Severity Reaction Status Date / Time pregabalin [From Lyrica] Allergy Unknown Unknown Verified 01/10/22 07:13 acetylcysteine Allergy Swelling Verified 01/10/22 07:13 hydromorphone HCl AdvReac headache Verified 01/10/22 07:13 [From Dilaudid] BERRIES Allergy Anaphylaxis Uncoded 01/10/22 07:13 Surgical - Exam - General well developed, well nourished, no distress - Respiratory normal respiratory effort - Abdomen Abdomen: soft, non tender, no guarding, no rigid, no rebound - Psychiatric oriented to time, oriented to person, oriented to place, speech is normal, memory intact Assessment and Plan (1) Calculus of ureter Status: Acute Code(s): N20.1 - CALCULUS OF URETER SNOMED Code(s): 68239822 (2) Calculus of kidney Status: Acute Code(s): N20.0 - CALCULUS OF KIDNEY SNOMED Code(s): 86842422 Plan: Cystoscopy, left ureteral stent removal, left ureteroscopy with holmium laser lithotripsy and possible stone basketing. The procedures been reviewed in detail with the patient. She is aware of potential risks, which include anesthesia, bleeding, infection, inability to successfully remove the calculi, and ureteral injury.
[2022-01-29 15:57] VITALS: BMI 39.6
[~2022-01-31 09:23] MED LIST changes: -LACTATED RINGERS 1,000 ML IV SCH; +LIDOCAINE 1% (10MG/ML) FOR IV START INTRADERMA PRN; -LIDOCAINE 1% 20 ML VIAL (10MG/ML) FOR IV START INTRADERMA PRN; +ONDANSETRON 4 MG/2 ML VIAL IVP ONE; +fentaNYL (PF) 50 MCG/ML 2 ML AMP IV PRN
--- NOTE | 2022-01-31 09:46 | XR ---
EXAMINATION TYPE: XR KUB DATE OF EXAM: 01/31/2022 Comparison: CT 01/09/2022 Clinical History: 46-year-old female Left ureteral/renal calculi, pre-op FINDINGS: A left ureteral stent is present. Nonobstructive bowel gas pattern with mild stool burden. 6 mm calc ification suggested along the distal third aspect of the left ureteral stent. There is a phlebolith l ower down in the left side of the pelvis. IMPRESSION: Left ureteral stent with a 6 mm calcification along the distal third aspect of the stent as indicated by the arrow.
[2022-01-31] MEDS: LACTATED RINGERS 1,000 ML IV SCH ×2 (10:06→13:40)
[2022-01-31 10:28] LABS: Glucose,Whole Blood 105 mg/dL (75-99)
[2022-01-31] MEDS ORDERED: NEOSTIGMINE 1 MG/ML 10 ML VIAL ONE (12:00)
[2022-01-31] MEDS ORDERED: GLYCOPYRROLATE 0.2 MG/ML 2 ML VIAL ONE (12:00)
[2022-01-31] MEDS ORDERED: LIDOCAINE 1% INJ 10MG/ML (20 ML MDV) ONE (12:00)
[2022-01-31] MEDS ORDERED: fentaNYL (PF) 50 MCG/ML 2 ML AMP ONE (12:00)
[2022-01-31] MEDS ORDERED: KETOROLAC 15 MG/ML 1 ML VIAL ONE (12:00)
[2022-01-31] MEDS ORDERED: SUCCINYLCHOLINE CHLORIDE VIAL 200 MG/10 ML VIAL IV ONE (12:00)
[2022-01-31] MEDS ORDERED: PROPOFOL 10 MG/ML 20 ML VIAL IV ONE (12:00)
[2022-01-31] MEDS ORDERED: FUROSEMIDE 10 MG/ML 2 ML VIAL ONE (12:00)
[2022-01-31] MEDS ORDERED: SUGAMMADEX SODIUM 200 MG/2 ML SDV IV ONE (12:00)
[2022-01-31] MEDS ORDERED: ROCURONIUM 10 MG/ML (5 ML VIAL) IV ONE ×2 (12:00→15:07)
[2022-01-31] MEDS ORDERED: KETAMINE 10 MG/ML 20 ML VIAL ONE (12:00)
[2022-01-31] MEDS ORDERED: ALBUTEROL NEBULIZED 2.5 MG/3 ML INHALATION ONE ×2 (13:33→13:50)
--- NOTE | 2022-01-31 13:45 | FL ---
EXAMINATION TYPE: FL guidance operating room DATE OF EXAM: 01/31/2022 HISTORY: Fluoroscopy time 6 seconds of fluoroscopy provided. IMPRESSION: 1. Fluoroscopy time.
[2022-01-31] MEDS ORDERED: IPRATROPIUM-ALBUTEROL 3 ML NEB INHALATION PRN (14:08)
[2022-01-31] MEDS ORDERED: MIDAZOLAM 2 MG/2 ML VIAL IV ONE ×2 (14:08→14:24)
--- NOTE | 2022-01-31 14:14 | XR ---
EXAMINATION TYPE: XR chest 1V portable DATE OF EXAM: 01/31/2022 COMPARISON: 11/08/2021 HISTORY: Chest pain TECHNIQUE: Single frontal view of the chest is obtained. FINDINGS: ET tube is seen with the tip approximately 3.3 cm above the alfonos. Diffuse interstitial p attern seen with no pleural effusion or pneumothorax. Calcification adjacent to right humeral head li janis related to calcific tendinosis. Heart size stable. IMPRESSION: 1. Diffuse predominantly interstitial pattern with lack of pleural fluid. Infectious etiology or inte rstitial pneumonitis is in the differential diagnosis and favored. CHF not entirely excluded. Correla te for viral or atypical infection. 2. ET tube in good position 3.3 cm above alfonso.
[2022-01-31 14:26] LABS: Glucose,Whole Blood 247 mg/dL (75-99)
[2022-01-31] MEDS ORDERED: LORazepam 2 MG/ML INJ IV ONE (15:03)
[2022-01-31 15:12] LABS: ABG HCO3 26 mmol/L (21-25); ABG Oxygen Saturation 99.4 % (94-97); ABG PO2 227 mmHg (83-108); ABG TCO2 28 mmol/L (19-24)
[2022-01-31 15:13] LABS: ABG PCO2 76 mmHg (35-45); ABG PH 7.14 (7.35-7.45)
[2022-01-31] MEDS ORDERED: LABETALOL 5 MG/ML VIAL MDV IV ONE (15:27)
--- NOTE | 2022-01-31 15:31 | P.CNPUL ---
History of Present Illness Consult date: 01/31/22 Requesting physician: Ricardo Aguiar Reason for consult: dyspnea Chief complaint: Acute hypoxic respiratory failure History of present illness: 46-year-old female patient with past medical history of morbid obesity, hyperlipidemia, diabetes type 2, COPD with baseline FEV1 value of 64% of predicted, previous history of tobacco dependence, diastolic CHF, cardiomyopathy with ejection fraction of 45-50%, moderate pulmonary hypertension, history of previous craniotomy for Chiari malformation and previous Cristy fundoplication. Patient recently had cystoscopy with left ureteral stent insertion for left hydronephrosis secondary to left ureteral calculus by Dr. Shukla on 01/10/2022. Patient was hospitalized and discharged home on 01/12/2022. On 01/31/2022 patient had cystoscopy, left ureteral stent removal, left ureteroscopic and laser lithotripsy. Patient developed worsening dyspnea and hypoxia, and required to be reintubated in the recovery room. We were consulted for ICU management. Chest x-ray showed diffuse predominantly interstitial edema, ET tube in good position 3.3 cm above alfonso. Patient is being sedated with Diprivan. We'll start IV Lasix, blood gas shows pO2 of 227, pCO2 of 76, pH is 7.14 and this was done on assist-control with a rate of 12, tidal volume were 50, FiO2 100% and PEEP of 5. Review of Systems All systems: negative Constitutional: Denies chills, Denies fever Eyes: denies blurred vision, denies pain Ears, nose, mouth and throat: Denies headache, Denies sore throat Cardiovascular: Denies chest pain, Denies shortness of breath Respiratory: Denies cough Gastrointestinal: Denies abdominal pain, Denies diarrhea, Denies nausea, Denies vomiting Genitourinary: Denies dysuria, Denies hematuria Musculoskeletal: Denies myalgias Integumentary: Denies pruritus, Denies rash Neurological: Denies numbness, Denies weakness Psychiatric: Denies anxiety, Denies depression Endocrine: Denies fatigue, Denies weight change Past Medical History Past Medical History: Atrial Fibrillation, Heart Failure, COPD, Diabetes Mellitus, GERD/Reflux, Hyperlipidemia, Hypertension, Pneumonia, Seizure Disorder, Sleep Apnea/CPAP/BIPAP Additional Past Medical History / Comment(s): Hx mult kidney stones, Hx pneumonia /vented-2012, peptic ulcers, Sleep apnea-no device currently, bilat occipital neuritis, headaches, vertigo, neuropathy BLE;"legs give out at times". States has "convulsions" "I get numb,fall asleep,and shake, but I'm aware of my surroundings" daily. hx of diverticulitis, colon polyps, hemmorhoids. edema BLE. +Covid 11/08/21 w/ mild sx. History of Any Multi-Drug Resistant Organisms: None Reported Past Surgical History: Cholecystectomy, Hernia Repair Additional Past Surgical History / Comment(s): brain surgery 2012 for seizures & headaches, Right ovary/tube removed 2009, D&C, Picc line insertion since removed, Kidney stone surgically removed & lithotripsy., Laproscopic Cristy Fundoplasty. Colonoscopy; Cysto w/ ureteral stent 01/10/22 Past Anesthesia/Blood Transfusion Reactions: No Reported Reaction, Motion Sickness Additional Past Anesthesia/Blood Transfusion Reaction / Comment(s): no known family hx Smoking Status: Current every day smoker - Past Family History Father Family Medical History: AFIB, Diabetes Mellitus, Hypertension Additional Family Medical History / Comment(s): Father is alive at age 67 with history of atrial fibrillation, diabetes, hypertension, pacemaker. Mother Family Medical History: Cancer Additional Family Medical History / Comment(s): Mother of pancreatic cancer at the age of 58yrs. Maternal cousin had pancreatic cancer. Maternal uncle had lung cancer. Sister(s) Family Medical History: AICD/Pacemaker Additional Family Medical History / Comment(s): the patient has one sister with AICD. Second sister has no major medical problems. Patient's 1 brother that is healthy. Patient has one son and one daughter with no major medical problems. Medications and Allergies Home Medications Medication Instructions Recorded Confirmed Type Fluticasone/Salmeterol [Advair 1 puff INHALATION RT-BID 09/06/21 01/31/22 History 500-50 Diskus] Ipratropium-Albuterol Nebulize 3 ml INHALATION RT-Q6H PRN 09/06/21 01/31/22 History [Duoneb 0.5 mg-3 mg/3 ml Soln] Rizatriptan Benzoate [Rizatriptan] 10 mg PO BID PRN 09/06/21 01/31/22 History Simvastatin [Zocor] 10 mg PO HS 09/06/21 01/31/22 History Apixaban [Eliquis] 5 mg PO BID #60 tab 09/07/21 01/31/22 Rx Aspirin EC [Ecotrin Low Dose] 81 mg PO W/SUPPER 10/11/21 01/31/22 History Carvedilol [Coreg] 25 mg PO BID-W/MEALS 10/11/21 01/31/22 History Magnesium 300 mg PO DAILY 10/11/21 01/31/22 History Albuterol Inhaler [Ventolin Hfa 1 puff INHALATION RT-Q6H PRN 11/08/21 01/31/22 History Inhaler] Furosemide [Lasix] 40 mg PO BID 11/08/21 01/31/22 History Potassium Chloride ER [K-Dur 20] 20 meq PO BID 11/08/21 01/31/22 History Losartan Potassium [Cozaar] 100 mg PO BID 01/09/22 01/31/22 History Acetaminophen [Tylenol] 2,000 mg PO Q4-6H PRN 01/29/22 01/31/22 History Allergies Allergy/AdvReac Type Severity Reaction Status Date / Time pregabalin [From Lyrica] Allergy Unknown Unknown Verified 01/31/22 10:09 acetylcysteine Allergy Swelling Verified 01/31/22 10:09 hydromorphone HCl AdvReac headache Verified 01/31/22 10:09 [From Dilaudid] BERRIES Allergy Anaphylaxis Uncoded 01/31/22 10:09 Physical Exam Vitals: Vital Signs Temp Pulse Resp BP Pulse Ox 01/31/22 14:45 99 12 113/59 99 01/31/22 14:30 103 H 12 133/77 96 01/31/22 14:15 124 H 12 121/70 97 01/31/22 13:55 97.7 F 118 H 12 115/59 92 L 01/31/22 10:08 97.5 F L 67 18 175/83 97 Intake and Output 01/31/22 01/31/22 01/31/22 06:59 14:59 22:59 Intake Total 1050 Output Total 0 Balance 1050 Intake: IV 1050 Output: Estimated Blood Loss 0 Other: Weight 97.5 kg GENERAL EXAM: Sedated, mildly agitated, 46-year-old morbidly obese white female, on assist control mode of ventilation in the recovery room, comfortable in no apparent distress. HEAD: Normocephalic/atraumatic. EYES: Normal reaction of pupils, equal size. Conjunctiva pink, sclera white. NOSE: Clear with pink turbinates. THROAT: No erythema or exudates. NECK: No masses, no JVD, no thyroid enlargement, no adenopathy. CHEST: No chest wall deformity. Symmetrical expansion. LUNGS: Equal air entry with no crackles, wheeze, rhonchi or dullness. CVS: Regular rate and rhythm, normal S1 and S2, no gallops, no murmurs, no rubs ABDOMEN: Soft, nontender. No hepatosplenomegaly, normal bowel sounds, no guarding or rigidity. EXTREMITIES: No clubbing, no edema, no cyanosis, 2+ pulses and upper and lower extremities. MUSCULOSKELETAL: Muscle strength and tone normal. SPINE: No scoliosis or deformity SKIN: No rashes CENTRAL NERVOUS SYSTEM: Sedated and intubated. No focal deficits, tone is normal in all 4 extremities. Results - Laboratory Findings Abnormal lab findings: Abnormal Labs 01/31/22 01/31/22 10:23 14:24 POC Glucose (mg/dL) 105 H 247 H - Diagnostic Findings Chest x-ray: report reviewed, image reviewed Assessment and Plan Plan: Assessment: #1. Acute hypoxic and hypercapnic respiratory failure related to acute pulmonary edema, and patient required to be reintubated in the recovery room post cystoscopy, left ureteral stent removal, left ureteroscopic and laser lithotripsy on 01/31/2022 #2. History of systolic CHF and cardiomyopathy and EF of 45% #3. Recent history of left hydronephrosis secondary to left ureteral calculus status post cystoscopy and left ureteral stent placement on 01/10/2022 #4. History of kidney stones #5. History of COPD with FEV1 of 64% predicted #6. GERD #7. Hypertension #8. Morbid obesity with a BMI of 40.6 kg/m #9. Paroxysmal atrial fibrillation on Eliquis #10. Diabetes mellitus type 2 #11. History of sleep apnea #12. History of Chiari malformation and previous history of craniotomy #13. History of seizure disorder Plan: We will keep the patient on mechanical ventilator overnight Postoperative chest x-ray shows pulmonary edema Lasix 40 mg every 8 hours IV push Blood gases have been reviewed, Ventilator settings have been adjusted as follows: Assist-control with a rate of 20, tidal volume is 450, FiO2 down to 50% and PEEP of 5 Propofol for sedation, titrated to RASS -3 We'll obtain CBC, CMP, proBNP, serial troponins Follow-up with his blood work in the morning, chest x-ray We'll consider echocardiogram if the troponin is abnormal We'll continue to follow I have personally seen and examined the patient, performed the documentation and the assessment and plan as written. Number of minutes spent on the visit: [15] Time with Patient: Greater than 30
[2022-01-31 15:48] LABS: Basophils % (A) 0 %; Eosinophils # (A) 0.2 k/uL (0-0.7); Eosinophils % (A) 1 %; HCT 47.9 % (34.0-46.0); HGB 15.3 gm/dL (11.4-16.0); Hypochromasia Slight; Lymphocytes # (A) 1.5 k/uL (1.0-4.8); Lymphocytes % (A) 11 %; MCH 31.2 pg (25.0-35.0); MCHC 31.9 g/dL (31.0-37.0); MCV 97.8 fL (80.0-100.0); Mean Platelet Volume 7.8; Monocytes # (A) 0.3 k/uL (0-1.0); Monocytes % (A) 2 %; Neutrophils # (A) 11.5 k/uL (1.3-7.7); Neutrophils % (A) 85 %; Platelet Count 236 k/uL (150-450); RBC 4.89 m/uL (3.80-5.40); RDW 15.3 % (11.5-15.5); WBC 13.5 k/uL (3.8-10.6)
[2022-01-31 15:51] LABS: Glucose,Whole Blood 206 mg/dL (75-99)
[2022-01-31 15:52] LABS: ALT 15 U/L (4-34); AST 25 U/L (14-36); African American GFR (CKD) >90 (>60 ml/min/1.73 sqM); Albumin 3.6 g/dL (3.5-5.0); Alkaline Phosphatase 68 U/L (38-126); Anion Gap 7 mmol/L; Blood Urea Nitrogen 14 mg/dL (7-17); Calcium 8.2 mg/dL (8.4-10.2); Carbon Dioxide 24 mmol/L (22-30); Chloride 106 mmol/L (98-107); Glucose 228 mg/dL (74-99); Non-African American GFR(CKD) 84 (>60 ml/min/1.73 sqM); Potassium 4.2 mmol/L (3.5-5.1); Sodium 137 mmol/L (137-145); Total Bilirubin 0.5 mg/dL (0.2-1.3); Total Protein 6.8 g/dL (6.3-8.2)
--- NOTE | 2022-01-31 15:59 | XR ---
EXAMINATION TYPE: XR chest 1V confirm line [facility] DATE OF EXAM: 01/31/2022 COMPARISON: 01/31/2022 HISTORY: Post central line TECHNIQUE: Single frontal view of the chest is obtained. FINDINGS: Right-sided central line seen with no sizable pneumothorax. Bilateral airspace disease see n diffusely greater upper lobes. ET tube stable. Heart size stable. No sizable pleural effusion. Calc ific tendinosis of the right shoulder. IMPRESSION: 1. Central line appears in good position with no evidence of pneumothorax. 2. Diffuse bilateral airspace disease correlate for pneumonia, ARDS or pulmonary edema.
[2022-01-31] MEDS: IPRATROPIUM-ALBUTEROL 3 ML NEB INHALATION SCH ×2 (16:36→20:12)
[2022-01-31] MEDS: FUROSEMIDE 10 MG/ML 4 ML VIAL IV SCH ×2 (17:17)
[2022-01-31 17:30] LABS: Glucose,Whole Blood 135 mg/dL (75-99)
[2022-01-31] MEDS ORDERED: NALOXONE 0.4 MG/ML 1 ML VIAL IV PRN (17:43)
[2022-01-31] MEDS: INSULIN ASPART (NovoLOG) 100 UNIT/ML VIAL SQ SCH (18:03)
[2022-01-31] MEDS: CHLORHEXIDINE GLUCONATE 15 ML CUP MUCOUS MEM SCH (21:20)
[2022-01-31] MEDS: fentaNYL (PF). 1,000 MCG in SODIUM CHLORIDE 0.9% 80 ML IV SCH (22:00)
[2022-01-31 23:59] LABS: Glucose,Whole Blood 80 mg/dL (75-99)
[2022-02-01] MEDS: INSULIN ASPART (NovoLOG) 100 UNIT/ML VIAL SQ SCH ×4 (00:01→18:24)
[2022-02-01] MEDS: IPRATROPIUM-ALBUTEROL 3 ML NEB INHALATION SCH ×6 (00:22→20:00)
[2022-02-01] MEDS: fentaNYL (PF). 1,000 MCG in SODIUM CHLORIDE 0.9% 80 ML IV SCH (04:50)
[2022-02-01 05:26] LABS: Basophils # (A) 0.1 k/uL (0-0.2); Basophils % (A) 1 %; Eosinophils # (A) 0.2 k/uL (0-0.7); Eosinophils % (A) 2 %; HCT 42.6 % (34.0-46.0); HGB 13.8 gm/dL (11.4-16.0); Lymphocytes # (A) 2.5 k/uL (1.0-4.8); Lymphocytes % (A) 24 %; MCH 30.6 pg (25.0-35.0); MCHC 32.4 g/dL (31.0-37.0); MCV 94.5 fL (80.0-100.0); Mean Platelet Volume 7.5; Monocytes # (A) 0.5 k/uL (0-1.0); Monocytes % (A) 5 %; Neutrophils # (A) 7.2 k/uL (1.3-7.7); Neutrophils % (A) 68 %; Platelet Count 219 k/uL (150-450); RBC 4.51 m/uL (3.80-5.40); RDW 14.9 % (11.5-15.5); WBC 10.6 k/uL (3.8-10.6)
[2022-02-01 05:36] LABS: African American GFR (CKD) >90 (>60 ml/min/1.73 sqM); Anion Gap 5 mmol/L; Blood Urea Nitrogen 14 mg/dL (7-17); Calcium 8.1 mg/dL (8.4-10.2); Carbon Dioxide 26 mmol/L (22-30); Chloride 106 mmol/L (98-107); Glucose 89 mg/dL (74-99); Magnesium 1.4 mg/dL (1.6-2.3); Non-African American GFR(CKD) 80 (>60 ml/min/1.73 sqM); Phosphorus 3.7 mg/dL (2.5-4.5); Potassium 3.4 mmol/L (3.5-5.1); Sodium 137 mmol/L (137-145)
[2022-02-01 06:07] LABS: ABG Base Excess 1.7 mmol/L; ABG HCO3 26 mmol/L (21-25); ABG Oxygen Saturation 98.9 % (94-97); ABG PCO2 36 mmHg (35-45); ABG PH 7.46 (7.35-7.45); ABG PO2 98 mmHg (83-108); ABG TCO2 27 mmol/L (19-24); Allen Test Performed? Yes
[2022-02-01] MEDS ORDERED: Potassium Replacement Protocol 1 EACH MISC MISCELLANE PRN (07:03)
[2022-02-01] MEDS ORDERED: Magnesium Replacement Protocol 1 EACH MISC MISCELLANE PRN (07:04)
--- NOTE | 2022-02-01 08:11 | XR ---
EXAMINATION TYPE: XR chest 1V portable DATE OF EXAM: 02/01/2022 COMPARISON: 01/31/2022 HISTORY: Central line placement TECHNIQUE: Single frontal view of the chest is obtained. FINDINGS: Central line stable. ET tube noted and stable. There is increasing consolidation left lowe r lobe. Improvement in the upper lobe areas of consolidation. Heart size stable. No pneumothorax. Blair cific tendinosis right shoulder. IMPRESSION: 1. Increasing left lower lobe infiltrate and small effusion. 2. Improving bilateral upper lobe infiltrates.
[2022-02-01] MEDS: MAGNESIUM SULFATE-D5W PMX 1 GM in DEXTROSE/WATER 1 100ML.BAG IVPB SCH ×3 (08:40→11:26)
[2022-02-01] MEDS: CHLORHEXIDINE GLUCONATE 15 ML CUP MUCOUS MEM SCH (08:40)
[2022-02-01] MEDS: POTASSIUM CHLORIDE 20 MEQ in WATER FOR INJECTION 1 100ML.BAG IVPB SCH ×2 (08:40→11:26)
[2022-02-01] MEDS: ENOXAPARIN 40 MG/0.4 ML SYRINGE SQ SCH (08:42)
[2022-02-01] MEDS ORDERED: PANTOPRAZOLE 40 MG/10 ML VIAL IVP SCH (09:00)
[2022-02-01] MEDS: FUROSEMIDE 10 MG/ML 4 ML VIAL IV SCH ×3 (10:15→17:15)
[2022-02-01] MEDS ORDERED: ONDANSETRON 4 MG/2 ML VIAL IVP PRN (10:50)
--- NOTE | 2022-02-01 11:53 | ECHOF ---
Referral Reason:pulm edema MEASUREMENTS -------- HEIGHT: 154.9 cm WEIGHT: 107.0 kg BP: 127/64 RVIDd: 2.8 cm (< 3.3) IVSd: 1.3 cm (0.6 - 1.1) LVIDd: 5.3 cm (3.9 - 5.3) LVPWd: 1.3 cm (0.6 - 1.1) IVSs: 1.9 cm LVIDs: 3.4 cm LVPWs: 1.5 cm LA Diam: 3.4 cm (2.7 - 3.8) LAESV Index (A-L): 29.65 ml/m Ao Diam: 3.2 cm (2.0 - 3.7) MV EXCURSION: 12.148 mm (> 18.000) MV EF SLOPE: 31 mm/s (70 - 150) EPSS: 1.1 cm MV E Aravind: 0.87 m/s MV DecT: 127 ms MV A Aravind: 1.10 m/s MV E/A Ratio: 0.79 FINDINGS -------- Sinus rhythm. This was a technically adequate study. The left ventricular size is normal. There is mild concentric left ventricular hypertrophy. Overa ll left ventricular systolic function is low-normal with, an EF between 50 - 55 %. The right ventricle is normal in size. LA is midly dilated 29-33ml/m2. The right atrial size is normal. Interatrial and interventricular septum intact. The aortic valve is trileaflet, and appears structurally normal. No aortic stenosis or regurgitation. The mitral valve is normal. There is trace mitral regurgitation. The tricuspid valve appears structurally normal. Mild tricuspid regurgitation present. There is no pulmonic regurgitation present. The aortic root size is normal. Normal inferior vena cava with normal inspiratory collapse consistent with estimated right atrial pre ssure of 5 mmHg. There is no pericardial effusion. CONCLUSIONS -------- 1. There is mild concentric left ventricular hypertrophy. 2. Overall left ventricular systolic function is low-normal with, an EF between 50 - 55 %. 3. LA is midly dilated 29-33ml/m2. 4. The aortic valve is trileaflet, and appears structurally normal. No aortic stenosis or regurgitati on. 5. There is trace mitral regurgitation. 6. Mild tricuspid regurgitation present. 7. There is no pericardial effusion. EMBLEM DRAWER IN: Kim Brownlee RDCS
--- NOTE | 2022-02-01 12:24 | P.PN ---
Subjective Progress Note Date: 02/01/22 Principal diagnosis: Acute hypoxia, pulmonary edema 46-year-old female patient with past medical history of morbid obesity, hyperlipidemia, diabetes type 2, COPD with baseline FEV1 value of 64% of predicted, previous history of tobacco dependence, diastolic CHF, cardiomyopathy with ejection fraction of 45-50%, moderate pulmonary hypertension, history of previous craniotomy for Chiari malformation and previous Cristy fundoplication. Patient recently had cystoscopy with left ureteral stent insertion for left hydronephrosis secondary to left ureteral calculus by Dr. Shukla on 01/10/2022. Patient was hospitalized and discharged home on 01/12/2022. On 01/31/2022 patient had cystoscopy, left ureteral stent removal, left ureteroscopic and laser lithotripsy. Patient developed worsening dyspnea and hypoxia, and required to be reintubated in the recovery room. We were consulted for ICU management. Chest x-ray showed diffuse predominantly interstitial edema, ET tube in good position 3.3 cm above alfonso. Patient is being sedated with Diprivan. We'll start IV Lasix, blood gas shows pO2 of 227, pCO2 of 76, pH is 7.14 and this was done on assist-control with a rate of 12, tidal volume were 50, FiO2 100% and PEEP of 5. On 02/01/2022 patient seen in follow-up in intensive care unit, overnight she remained sedated, and intubated on mechanical ventilator assist control with a rate of 20, Clifton is 450, FiO2 of 30% and PEEP of 5, this morning's blood gas shows pO2 of 98, pCO2 of 36, and pH of 7.46 this was done and FiO2 of 40% which subsequently dropped down to 30%. Today's chest x-ray show significant improvement in the appearance of bilateral upper lobe infiltrates. There was increasing left lower lobe infiltrate and small effusion. Pleural fluid status has improved. Patient remains on Lasix 40 mg every 8 hours. She is in -722 mL net fluid balance over the last 24 hours, she remains on 0.9 with faint at a rate of 20 ML per hour, Diprivan at 50 mics per kilo per minute, and no drip at 1.2 mics per kilo per minute, she is currently undergoing a sedation holiday, she is followed command, she is moving all 4 extremities, she is becoming agit ated and restless. She was placed on pressure-support of 5 and CPAP of 5, she is tolerating weaning trials quite well. Vital signs have been stable overnight, no vasopressor support was required, Olson catheter is in place, she is producing 40-100 mL per hour of urine. A cardiogram has been completed showing EF 50-55%, mild concentric LVH, no aortic stenosis or regurgitation, trace mitral regurgitation Objective - Vital Signs Vital signs: Vital Signs Temp 98.9 F 02/01/22 08:00 Pulse 68 02/01/22 12:00 Resp 22 02/01/22 12:00 BP 119/73 02/01/22 11:00 Pulse Ox 96 02/01/22 11:00 Intake & Output 01/31/22 02/01/22 02/01/22 18:59 06:59 18:59 Intake Total 1310 457.896 262.035 Output Total 400 2090 490 Balance 910 -1632.104 -227.965 Weight 97.5 kg 107.3 kg Intake: IV 1310 240 100 0.9 NACL 60 240 100 Intake, IV Titration 217.896 162.035 Amount fentaNYL (PF). 1,000 mcg 44.771 62.035 In Sodium Chloride 0.9% 80 ml @ 0.5 MCG/KG/HR 4. 875 mls/hr IV .[id number] ARLINE Rx#:[id number] propofoL 1,000 mg In 173.125 100 Empty Bag 1 bag @ 5 MCG/ KG/MIN 2.925 mls/hr IV . Q24H ARLINE Rx#:[id number] Output: Urine 400 2090 490 Estimated Blood Loss 0 Other: Voiding Method Indwelling Catheter Indwelling Catheter Indwelling Catheter ABP, PAP, CO, CI - Last Documented Arterial Blood Pressure 119/69 - Exam GENERAL EXAM: Sedated, mildly agitated, 46-year-old morbidly obese white female, on assist control mode of ventilation with assist control at the rate of 20, tidal volumes 450, FiO2 of 30% and PEEP of 5 comfortable in no apparent distress. HEAD: Normocephalic/atraumatic. EYES: Normal reaction of pupils, equal size. Conjunctiva pink, sclera white. NOSE: Clear with pink turbinates. THROAT: No erythema or exudates. NECK: No masses, no JVD, no thyroid enlargement, no adenopathy. CHEST: No chest wall deformity. Symmetrical expansion. LUNGS: Equal air entry with no crackles, wheeze, rhonchi or dullness. CVS: Regular rate and rhythm, normal S1 and S2, no gallops, no murmurs, no rubs ABDOMEN: Soft, nontender. No hepatosplenomegaly, normal bowel sounds, no gu arding or rigidity. EXTREMITIES: No clubbing, no edema, no cyanosis, 2+ pulses and upper and lower e xtremities. MUSCULOSKELETAL: Muscle strength and tone normal. SPINE: No scoliosis or deformity SKIN: No rashes CENTRAL NERVOUS SYSTEM: Sedated and intubated. No focal deficits, tone is normal in all 4 extremities. - Labs CBC & Chem 7: 02/01/22 05:00 02/01/22 05:00 Labs: Abnormal Lab Results - Last 24 Hours (Table) 01/31/22 01/31/22 01/31/22 Range/Units 14:24 15:09 15:09 WBC 13.5 H (3.8-10.6) k/uL Hct 47.9 H (34.0-46.0) % Neutrophils # 11.5 H (1.3-7.7) k/uL ABG pH (7.35-7.45) ABG pCO2 (35-45) mmHg ABG pO2 (83-108) mmHg ABG HCO3 (21-25) mmol/L ABG Total CO2 (19-24) mmol/L ABG O2 Saturation (94-97) % Potassium (3.5-5.1) mmol/L Glucose 228 H (74-99) mg/dL POC Glucose (mg/dL) 247 H (75-99) mg/dL Calcium 8.2 L (8.4-10.2) mg/dL Magnesium (1.6-2.3) mg/dL Troponin I (0.000-0.034) ng/mL 01/31/22 01/31/22 01/31/22 Range/Units 15:10 15:50 17:28 WBC (3.8-10.6) k/uL Hct (34.0-46.0) % Neutrophils # (1.3-7.7) k/uL ABG pH 7.14 L* (7.35-7.45) ABG pCO2 76 H* (35-45) mmHg ABG pO2 227 H (83-108) mmHg ABG HCO3 26 H (21-25) mmol/L ABG Total CO2 28 H (19-24) mmol/L ABG O2 Saturation 99.4 H (94-97) % Potassium (3.5-5.1) mmol/L Glucose (74-99) mg/dL POC Glucose (mg/dL) 206 H 135 H (75-99) mg/dL Calcium (8.4-10.2) mg/dL Magnesium (1.6-2.3) mg/dL Troponin I (0.000-0.034) ng/mL 01/31/22 02/01/22 02/01/22 Range/Units 20:53 05:00 05:00 WBC (3.8-10.6) k/uL Hct (34.0-46.0) % Neutrophils # (1.3-7.7) k/uL ABG pH (7.35-7.45) ABG pCO2 (35-45) mmHg ABG pO2 (83-108) mmHg ABG HCO3 (21-25) mmol/L ABG Total CO2 (19-24) mmol/L ABG O2 Saturation (94-97) % Potassium 3.4 L (3.5-5.1) mmol/L Glucose (74-99) mg/dL POC Glucose (mg/dL) (75-99) mg/dL Calcium 8.1 L (8.4-10.2) mg/dL Magnesium 1.4 L (1.6-2.3) mg/dL Troponin I 0.074 H* 0.065 H* (0.000-0.034) ng/mL 02/01/22 Range/Units 06:04 WBC (3.8-10.6) k/uL Hct (34.0-46.0) % Neutrophils # (1.3-7.7) k/uL ABG pH 7.46 H (7.35-7.45) ABG pCO2 (35-45) mmHg ABG pO2 (83-108) mmHg ABG HCO3 26 H (21-25) mmol/L ABG Total CO2 27 H (19-24) mmol/L ABG O2 Saturation 98.9 H (94-97) % Potassium (3.5-5.1) mmol/L Glucose (74-99) mg/dL POC Glucose (mg/dL) (75-99) mg/dL Calcium (8.4-10.2) mg/dL Magnesium (1.6-2.3) mg/dL Troponin I (0.000-0.034) ng/mL Microbiology - Last 24 Hours (Table) 02/01/22 00:39 Sputum Culture - Preliminary Sputum Assessment and Plan Plan: Assessment: #1. Acute hypoxic and hypercapnic respiratory failure related to acute pulmonary edema, and patient required to be reintubated in the recovery room post cystoscopy, left ureteral stent removal, left ureteroscopic and laser lithotripsy on 01/31/2022 #2. History of systolic CHF and cardiomyopathy and EF of 45% #3. Recent history of left hydronephrosis secondary to left ureteral calculus status post cystoscopy and left ureteral stent placement on 01/10/2022 #4. History of kidney stones #5. History of COPD with FEV1 of 64% predicted #6. GERD #7. Hypertension #8. Morbid obesity with a BMI of 40.6 kg/m #9. Paroxysmal atrial fibrillation on Eliquis #10. Diabetes mellitus type 2 #11. History of sleep apnea #12. History of Chiari malformation and previous history of craniotomy #13. History of seizure disorder Plan: No acute events overnight Patient's chest x-ray blood gases and labs reviewed Chest x-ray shows improvement in the appearance of bilateral infiltrates and pulmonary edema Continue IV Lasix of 40 mg every 8 hours Continue breathing treatments Patient was given a brief spontaneous breathing trial after she passed spontaneous awakening trials Tolerated them well, mentation is appropriate, We'll proceed with extubation Follow-up chest x-ray and labs tomorrow Echocardiogram has been noted Urology recommendations We'll follow I have personally seen and examined the patient, performed the documentation and the assessment and plan as written. Number of minutes spent on the visit: [15] Time with Patient: Greater than 30
[2022-02-01] MEDS ORDERED: ACETAMINOPHEN TAB 325 MG TAB PO PRN (13:14)
[2022-02-01] MEDS ORDERED: SUMAtriptan succinate 50 MG TAB PO PRN (16:44)
[2022-02-01] MEDS ORDERED: ACETAMINOPHEN TAB 500 MG TAB PO PRN (16:44)
--- NOTE | 2022-02-01 16:49 | P.PN ---
Progress Note - Text Progress Note Date: 02/01/22 The patient was extubated earlier today and is resting comfortably. Her breathing is not labored, and she denies dyspnea. She also denies abdominal pain. She is afebrile with stable vital signs. The Olson catheter is draining clear yellow urine. Home medications have been resumed.
[2022-02-01] MEDS: carvediloL 12.5 MG TAB PO SCH (17:15)
[2022-02-01] MEDS: ASPIRIN 81 MG PO SCH (17:15)
[2022-02-01 18:21] LABS: Glucose,Whole Blood 105 mg/dL (75-99)
--- NOTE | 2022-02-01 18:25 | P.OP ---
Date of Procedure: 01/31/22 Preoperative Diagnosis: Left ureteral calculus, left renal calculus Postoperative Diagnosis: Same Procedure(s) Performed: Cystoscopy, left ureteral stent removal, left ureteroscopy with Holmium laser lithotripsy and stone basketing Anesthesia: DOMINGA Surgeon: Ricardo Aguiar Estimated Blood Loss (ml): 0 IV fluids (ml): 600 Pathology: other (Stone fragments, sent for chemical analysis) Condition: stable Disposition: PACU Indications for Procedure: The patient is a 46-year-old white female who was admitted in late December with left flank pain radiating to the left lower abdomen. She has a history of kidney stones, one of which appears to have required stent placement followed by ureteroscopy or extracorporeal shockwave lithotripsy (ESWL). CT scan showed evidence of left hydronephrosis due to a 7 mm left distal ureteral calculus. A 5 mm left lower pole renal calculus was also seen. She underwent left ureteral stent insertion on 01/10/2022. Purulent urine drained from the left renal pelvis, but cultures showed only genital shabbir. She was feeling much better at the time of discharge. She now comes for removal of her left distal ureteral calculus and renal calculus. Operative Findings: Left distal ureteral calculus and left lower pole renal calculus, both removed completely. Description of Procedure: The patient was taken to the operating room and placed in the dorsolithotomy position, with legs supported in Arley stirrups. The external genitalia was prepped and draped sterilely. The 30 lens was used to introduce the 21-Guyanese Grimes cystoscopic sheath through the urethra and into the bladder under direct vision. The bladder was examined in its entirety. No abnormalities were seen. Grasping forceps were used to grasp the distal end of the left ureteral stent, which was removed along with the cystoscope. The Grimes semirigid ureteroscope was advanced into the bladder, and the left ureteral orifice was cannulated. The ureteroscope was advanced under direct vision, up to the distal ureteral calculus. The 272 micron Holmium laser probe was passed through the ureteroscope, and lithotripsy was performed. The calculus was fragmented, and the 1.9-Guyanese nitinol basket was used to remove all calculus fragments. These were saved and sent for chemical analysis. Inspection of the ureter showed no evidence of ureteral trauma. The semirigid ureteroscope was removed, and the flexible ureteroscope was passed into the bladder. The left ureteral orifice was cannulated, and the ureteroscope was slowly advanced under direct vision, up to the left kidney. Each calyx was examined. With some difficulty, the renal calculus was identified within a lower pole calyx. Lithotripsy was performed but was difficult. The nitinol basket was used to grasp the calculus and relocated within the renal pelvis, where lithotripsy was completed. Some of the larger calculus fragments were removed via Stone basketing, while the remaining fragments were dusted, leaving no residual particles exceeding 1 mm in size. The ureteroscope was slowly withdrawn under direct vision. There was no evidence of ureteral trauma. The patient tolerated the procedure well and was taken to the recovery room in stable condition. [facility] Report: Procedure Acuity: Elective Stone Size and Location: 7 mm, left distal ureter. 5 mm, left lower pole calyx. Ureteral Dilation: No Ureteral Access Sheath Used: No Stone Sent for Analysis: Yes All Stones/Fragments Were Removed with a Basket: Yes Complications: No Preoperative Antibiotics Given: Yes Stent Placed: No Discharge Medications: None
[2022-02-01] MEDS: SYMBICORT 160-4.5 MCG INHALER INHALATION SCH (20:00)
[2022-02-01] MEDS: POTASSIUM CHLORIDE ER 20 MEQ TAB.ER PO SCH (21:06)
[2022-02-01] MEDS: ATORVASTATIN 10 MG TAB PO SCH (21:06)
[2022-02-01] MEDS: LOSARTAN 50 MG TAB PO SCH (21:06)
[2022-02-02] MEDS: FUROSEMIDE 10 MG/ML 4 ML VIAL IV SCH ×2 (00:05→08:43)
[2022-02-02 00:18] LABS: Glucose,Whole Blood 103 mg/dL (75-99)
[2022-02-02] MEDS: INSULIN ASPART (NovoLOG) 100 UNIT/ML VIAL SQ SCH ×5 (00:18→21:00)
[2022-02-02] MEDS: IPRATROPIUM-ALBUTEROL 3 ML NEB INHALATION SCH ×5 (01:27→20:04)
[2022-02-02 05:22] LABS: Basophils % (A) 0 %; Eosinophils # (A) 0.3 k/uL (0-0.7); Eosinophils % (A) 4 %; HCT 41.4 % (34.0-46.0); HGB 13.7 gm/dL (11.4-16.0); Lymphocytes # (A) 2.2 k/uL (1.0-4.8); Lymphocytes % (A) 30 %; MCH 31.7 pg (25.0-35.0); MCHC 33.2 g/dL (31.0-37.0); MCV 95.6 fL (80.0-100.0); Mean Platelet Volume 7.8; Monocytes # (A) 0.4 k/uL (0-1.0); Monocytes % (A) 6 %; Neutrophils # (A) 4.3 k/uL (1.3-7.7); Neutrophils % (A) 58 %; Platelet Count 218 k/uL (150-450); RBC 4.33 m/uL (3.80-5.40); RDW 15.4 % (11.5-15.5); WBC 7.4 k/uL (3.8-10.6)
[2022-02-02 05:37] LABS: African American GFR (CKD) >90 (>60 ml/min/1.73 sqM); Anion Gap 5 mmol/L; Blood Urea Nitrogen 12 mg/dL (7-17); Calcium 8.2 mg/dL (8.4-10.2); Carbon Dioxide 29 mmol/L (22-30); Chloride 103 mmol/L (98-107); Glucose 98 mg/dL (74-99); Magnesium 1.9 mg/dL (1.6-2.3); Non-African American GFR(CKD) >90 (>60 ml/min/1.73 sqM); Potassium 3.8 mmol/L (3.5-5.1); Sodium 137 mmol/L (137-145)
--- NOTE | 2022-02-02 07:16 | XR ---
EXAMINATION TYPE: XR chest 1V portable DATE OF EXAM: 02/02/2022 COMPARISON: NONE HISTORY: Chest pain TECHNIQUE: Single frontal view of the chest is obtained. FINDINGS: There is no focal air space opacity, pleural effusion, or pneumothorax seen. Right IJ central venous line unchanged in position. No pneumothorax. Pulmonary venous congestion and cardiomegaly. The cardiac silhouette size is within normal limits. The osseous structures are intact. IMPRESSION: 1. Pulmonary venous congestion and cardiomegaly improved from prior study.
[2022-02-02] MEDS: SYMBICORT 160-4.5 MCG INHALER INHALATION SCH ×2 (07:44→20:04)
[2022-02-02] MEDS: LACTATED RINGERS 1,000 ML IV SCH (07:50)
[2022-02-02] MEDS: POTASSIUM CHLORIDE ER 20 MEQ TAB.ER PO SCH ×2 (08:42→21:02)
[2022-02-02] MEDS: MAGNESIUM OXIDE 400 MG TAB PO SCH (08:42)
[2022-02-02] MEDS: PANTOPRAZOLE 40 MG TABLET PO SCH (08:42)
[2022-02-02] MEDS: ENOXAPARIN 40 MG/0.4 ML SYRINGE SQ SCH (08:43)
[2022-02-02] MEDS: carvediloL 12.5 MG TAB PO SCH ×2 (08:43→16:38)
[2022-02-02] MEDS: LOSARTAN 50 MG TAB PO SCH ×2 (08:43→21:02)
[2022-02-02 11:26] LABS: Glucose,Whole Blood 158 mg/dL (75-99)
--- NOTE | 2022-02-02 11:40 | P.PN ---
Subjective Progress Note Date: 02/02/22 Principal diagnosis: Acute hypoxic respiratory failure secondary to pulmonary edema 46-year-old female patient with past medical history of morbid obesity, hyperlipidemia, diabetes type 2, COPD with baseline FEV1 value of 64% of predicted, previous history of tobacco dependence, diastolic CHF, cardiomyopathy with ejection fraction of 45-50%, moderate pulmonary hypertension, history of previous craniotomy for Chiari malformation and previous Cristy fundoplication. Patient recently had cystoscopy with left ureteral stent insertion for left hydronephrosis secondary to left ureteral calculus by Dr. Shukla on 01/10/2022. Patient was hospitalized and discharged home on 01/12/2022. On 01/31/2022 patient had cystoscopy, left ureteral stent removal, left ureteroscopic and laser lithotripsy. Patient developed worsening dyspnea and hypoxia, and required to be reintubated in the recovery room. We were consulted for ICU management. Chest x-ray showed diffuse predominantly interstitial edema, ET tube in good position 3.3 cm above alfonso. Patient is being sedated with Diprivan. We'll start IV Lasix, blood gas shows pO2 of 227, pCO2 of 76, pH is 7.14 and this was done on assist-control with a rate of 12, tidal volume were 50, FiO2 100% and PEEP of 5. On 02/01/2022 patient seen in follow-up in intensive care unit, overnight she remained sedated, and intubated on mechanical ventilator assist control with a rate of 20, Clifton is 450, FiO2 of 30% and PEEP of 5, this morning's blood gas shows pO2 of 98, pCO2 of 36, and pH of 7.46 this was done and FiO2 of 40% which subsequently dropped down to 30%. Today's chest x-ray show significant improvement in the appearance of bilateral upper lobe infiltrates. There was increasing left lower lobe infiltrate and small effusion. Pleural fluid status has improved. Patient remains on Lasix 40 mg every 8 hours. She is in -722 mL net fluid balance over the last 24 hours, she remains on 0.9 with faint at a rate of 20 ML per hour, Diprivan at 50 mics per kilo per minute, and no drip at 1.2 mics per kilo per minute, she is currently undergoing a sedation holiday, she is followed command, she is moving all 4 extremities, she is becoming agitated and restless. She was placed on pressure-support of 5 and CPAP of 5, she is tolerating weaning trials quite well. Vital signs have been stable overnight, no vasopressor support was required, Olson catheter is in place, she is producing 40-100 mL per hour of urine. A cardiogram has been completed showing EF 50-55%, mild concentric LVH, no aortic stenosis or regurgitation, trace mitral regurgitation Reevaluated today on , patient remains in the ICU, she was extubated yesterday, tolerated the extubation well, she is now on IV fluid at [facility], she is only on 2 L nasal cannula, patient responded well to diuresis, and I cut down her Lasix to 40 mg daily. Not much happened over the last 24 hours, patient seems to be relatively stable, and I plan to transfer the patient out of the ICU to a monitor bed on selective. Chest x-ray showed significant improvement. Her WBC was 7.4 hemoglobin is 13.7. Assessment normal renal profile is normal Objective - Vital Signs Vital signs: Vital Signs Temp 97.8 F 02/02/22 08:00 Pulse 62 02/02/22 11:17 Resp 18 02/02/22 11:00 BP 133/56 02/02/22 05:00 Pulse Ox 93 L 02/02/22 11:00 Intake & Output 02/01/22 02/02/22 02/02/22 18:59 06:59 18:59 Intake Total 602.035 170 50 Output Total 5 2535 840 Balance -1442.965 -2365 -790 Weight 106.4 kg Intake: IV 240 170 50 0.9 NACL 240 170 50 Intake, IV Titration 162.035 Amount fentaNYL (PF). 1,000 mcg 62.035 In Sodium Chloride 0.9% 80 ml @ 0.5 MCG/KG/HR 4. 875 mls/hr IV .[id number] ARLINE Rx#:[id number] propofoL 1,000 mg In 100 Empty Bag 1 bag @ 5 MCG/ KG/MIN 2.925 mls/hr IV . Q24H ARLINE Rx#:[id number] Oral 200 Output: Urine 2045 2535 840 Other: Voiding Method Indwelling Catheter Indwelling Catheter Indwelling Catheter ABP, PAP, CO, CI - Last Documented Arterial Blood Pressure 128/66 - Exam Physical Exam: Revealed a 46-year-old female in no distress. Head: Atraumatic, normocephalic. HEENT:[Neck is supple.] [No neck masses.] [No thyromegaly.] [No JVD.] Chest: [Clear throughout, no crackles, no rhonchi, no wheezes.] Cardiac Exam: [Normal S1 and S2, no S3 gallop, no murmur.] Abdomen: [Soft, nontender, no megaly, no rebound, no guarding, normal bowel sounds.] Extremities: [No clubbing, no edema, no cyanosis.] Neurological Exam: [No focal neurologic deficit.] Alert oriented 3. No gross focal deficits. Psychiatric: Normal mood affect and normal mental status examination. Skin: No rashes. - Labs CBC & Chem 7: 02/02/22 05:10 02/02/22 05:10 Labs: Abnormal Lab Results - Last 24 Hours (Table) 02/01/22 02/02/22 02/02/22 Range/Units 18:19 00:16 05:10 POC Glucose (mg/dL) 105 H 103 H (75-99) mg/dL Calcium 8.2 L (8.4-10.2) mg/dL 02/02/22 Range/Units 11:23 POC Glucose (mg/dL) 158 H (75-99) mg/dL Calcium (8.4-10.2) mg/dL Microbiology - Last 24 Hours (Table) 02/01/22 00:39 Gram Stain - Preliminary Sputum Sputum Culture - Preliminary Assessment and Plan Assessment: Impression: Acute hypoxic respiratory failure secondary to acute pulmonary edema most likely secondary to acute systolic congestive heart failure, known history of cardiomyopathy and LV dysfunction with ejection fraction of 45%. History of left hydronephrosis and ureteral calculus status post cystoscopy and left ureteral stent placement on 01/10. Status post left ureteroscopy and laser lithotripsy and stone basketing and ureteral stent removal on 01/31. Complicated by developing acute hypoxic respiratory failure and congestive heart failure as noted above. This is unexpected. History of COPD, FEV1 of 64%. Benign essential hypertension. Paroxysmal atrial fibrillation, on eliquis. Type 2 diabetes. History of obstructive sleep apnea syndrome. History of craniotomy for chiari malformation. History of seizure disorder. Recommendation: Considering the patient is doing quite well today, I plan to transfer the patient out of the ICU to a medical bed/cardiac bed. Cut down diuretics 40 mg daily. Continue GI and DVT prophylaxis. Patient to be seen by general medicine for follow-up. Again will manage while in the ICU and transferred out to cardiac bed today if possible. Few months. We'll continue to follow Time with Patient: Less than 30
[2022-02-02] MEDS ORDERED: KETOROLAC 15 MG/ML 1 ML VIAL IVP PRN (12:07)
--- NOTE | 2022-02-02 12:10 | P.PN ---
Progress Note - Text Progress Note Date: 02/02/22 The patient appears comfortable. She reports mild diffuse upper abdominal discomfort, the etiology of which is unclear. She denies dyspnea, and her oxygen saturation levels are normal on room air. The Olson catheter is draining clear yellow urine. The catheter may be removed when no longer medically needed. She has been transferred out of the ICU today. I have prescribed Toradol for the abdominal discomfort. There was no concern of intraoperative ureteral injury, and from my standpoint she is urologically stable.
--- NOTE | 2022-02-02 15:08 | P.CONS ---
History of Present Illness - Reason for Consult Consult date: 02/02/22 diabetes - Chief Complaint kidney stone - History of Present Illness Patient is a 46-year-old female with known history of kidney stones requiring lithotripsy, COPD, GERD, Paroxysmal A fib, hypertension, and multiple other comorbid conditions who presented for left ureteral stent removal and lith ptripsy. She was recently hospitalized from 01/09 throught 01/12 for UTI with left obstruction ureteral calcous requiring cystoscopy with left ureteral stent. Patient required reintubation in the PACU due to respiratory distress. Chest x- ray showed intersitial infiltrates. She was transferred to the ICU abd was started on IVF lasix for acute exacerbation of systolic CHF. Her troponin were mildly elevated but flat and not consistent with acute coronary syndrome. Echocardiogram was completed which showed LVH with ejection fraction of 50-55%. Patient continued to improve with diuresis and was ultimately extubated on 02/01/2022. We're consulted for diabetic management. Patient seen and examined at bedside. She is currently complaining of pain that wraps from the bottom of her ribs straight to her back is worse with movement and better with rest. She thinks it is due to not moving for so many days. She states her breathing is at baseline. She denies any chest pain, swelling. She states the Olson catheter starting to bother her. She denies any nausea, vomiting, diarrhea. She was able to eat breakfast. Pertinent positives and negatives as discussed in HPI, a complete review of sy stems was performed and all other systems are negative. General: non toxic, no distress, appears at stated age, obese Derm: warm, dry Head: atraumatic, normocephalic, symmetric Eyes: EOMI, no lid lag, anicteric sclera, pupils equal round reactive to light ENT: Nose and ears atraumatic, no thrush, + pharyngeal erythema Neck: No thyromegaly, no cervical lymphadenopathy, trachea midline, supple, c entral line right neck Mouth: no lip lesion, mucus membranes dry Cardiovascular: S1S2 reg, no murmur, positive posterior tibial pulse bilateral, 2+ edema, capillary refill less than 2 seconds Lungs: clear to ascultation bilateral, no ronchi, no rales, no wheeze, no accessory muscle use Abdominal: soft, +tender to palpation sub xiphoid, no guarding, no appreciable organomegaly, normal bowel sounds Ext: no gross muscle atrophy, muscle strength muscle strength 5 out of 5 in all 4 extremities, no contractures Neuro: CN II-XI grossly intact, light touch intact all 4 extremities, finger to nose within normal limits, Psych: Alert, oriented, appropriate affect Assessment/ Plan: Acute exacerbation of diastolic congestive heart failure with ejection fraction 50-55% Acute hypoxic respiratory failure -Resume Lasix 40 mg twice daily, IV Lasix. -Continue with Beta Suki, ARB -Strict I's and O's -Daily Weights -Outpatient Cardiology Follow-Up Diabetes mellitus type 2 - diet controlled at home - SSI - outpatient follow-up Paroxysmal atrial fibrillation Hypertension, accelerated Elevated troponin, not clinically significant and not consistent with acute coronary syndrome - eliquis when okay with urology - jordin omalley - follow BP Morbid obesity wtih BMI 44.3 - structured outpatient weight loss COPD without exacerbation Obstructive sleep apnea without CPAP use - broncho dilatros - pulm hygeine Thorasic muscle strain - toradol - increase activity Chronic: Seizure disorder Craniotomy for Chiari malformation Dyslipidemia GERD Occipital neuritis Vertigo underlying bilateral neuropathy DVT prophylaxis: Lovenox Discussed with: Patient, Dr. Shukla, ICU nursing Anticipated discharge: in AM Anticipated discharge place: home A total of 65 minutes was spent on the care of this complex patient more than 50% of the time was spent in counseling and care coordination. Thank you for allowing us to participate in the care of this pleasant patient. Do not hesitate to contact us with questions. Someone can be reached from the [facility] hospitalist group all hours of the day at [phone] or via [employer]. Past Medical History Past Medical History: Atrial Fibrillation, Heart Failure, COPD, Diabetes Mellitus, GERD/Reflux, Hyperlipidemia, Hypertension, Pneumonia, Seizure Disorder, Sleep Apnea/CPAP/BIPAP Additional Past Medical History / Comment(s): Hx mult kidney stones, Hx pneumonia /vented-2012, peptic ulcers, Sleep apnea-no device currently, bilat occipital neuritis, headaches, vertigo, neuropathy BLE;"legs give out at times". States has "convulsions" "I get numb,fall asleep,and shake, but I'm aware of my surroundings" daily. hx of diverticulitis, colon polyps, hemmorhoids. edema BLE. +Covid 11/08/21 w/ mild sx. History of Any Multi-Drug Resistant Organisms: None Reported Past Surgical History: Cholecystectomy, Hernia Repair Additional Past Surgical History / Comment(s): brain surgery 2012 for seizures & headaches, Right ovary/tube removed 2009, D&C, Picc line insertion since removed, Kidney stone surgically removed & lithotripsy., Laproscopic Cristy Fundoplasty. Colonoscopy; Cysto w/ ureteral stent 01/10/22 Past Anesthesia/Blood Transfusion Reactions: No Reported Reaction, Motion Sickness Additional Past Anesthesia/Blood Transfusion Reaction / Comm: no known family hx Smoking Status: Current every day smoker - Past Family History Father Family Medical History: AFIB, Diabetes Mellitus, Hypertension Additional Family Medical History / Comment(s): Father is alive at age 67 with history of atrial fibrillation, diabetes, hypertension, pacemaker. Mother Family Medical History: Cancer Additional Family Medical History / Comment(s): Mother of pancreatic cancer at the age of 58yrs. Maternal cousin had pancreatic cancer. Maternal uncle had lung cancer. Sister(s) Family Medical History: AICD/Pacemaker Additional Family Medical History / Comment(s): the patient has one sister with AICD. Second sister has no major medical problems. Patient's 1 brother that is healthy. Patient has one son and one daughter with no major medical problems. Medications and Allergies Home Medications Medication Instructions Recorded Confirmed Type Fluticasone/Salmeterol [Advair 1 puff INHALATION RT-BID 09/06/21 01/31/22 His tory 500-50 Diskus] Ipratropium-Albuterol Nebulize 3 ml INHALATION RT-Q6H PRN 09/06/21 01/31/22 History [Duoneb 0.5 mg-3 mg/3 ml Soln] Rizatriptan Benzoate [Rizatriptan] 10 mg PO BID PRN 09/06/21 01/31/22 History Simvastatin [Zocor] 10 mg PO HS 09/06/21 01/31/22 History Apixaban [Eliquis] 5 mg PO BID #60 tab 09/07/21 01/31/22 Rx Aspirin EC [Ecotrin Low Dose] 81 mg PO W/SUPPER 10/11/21 01/31/22 History Carvedilol [Coreg] 25 mg PO BID-W/MEALS 10/11/21 01/31/22 History Magnesium 300 mg PO DAILY 10/11/21 01/31/22 History Albuterol Inhaler [Ventolin Hfa 1 puff INHALATION RT-Q6H PRN 11/08/21 01/31/22 History Inhaler] Furosemide [Lasix] 40 mg PO BID 11/08/21 01/31/22 History Potassium Chloride ER [K-Dur 20] 20 meq PO BID 11/08/21 01/31/22 History Losartan Potassium [Cozaar] 100 mg PO BID 01/09/22 01/31/22 History Acetaminophen [Tylenol] 2,000 mg PO Q4-6H PRN 01/29/22 01/31/22 History Allergies Allergy/AdvReac Type Severity Reaction Status Date / Time pregabalin [From Lyrica] Allergy Unknown Unknown Verified 01/31/22 10:09 acetylcysteine Allergy Swelling Verified 01/31/22 10:09 hydromorphone HCl AdvReac headache Verified 01/31/22 10:09 [From Dilaudid] BERRIES Allergy Anaphylaxis Uncoded 01/31/22 10:09 Physical Exam Osteopathic Statement: *. No significant issues noted on an osteopathic structural exam other than those noted in the History and Physical/Consult. Vitals: Vital Signs Temp Pulse Pulse Resp BP Pulse Ox 02/02/22 14:00 65 17 96 02/02/22 13:00 64 16 94 L 02/02/22 12:00 98.1 F 84 25 H 94 L 02/02/22 11:17 62 02/02/22 11:06 63 02/02/22 11:00 80 18 93 L 02/02/22 10:00 89 13 93 L 02/02/22 09:00 59 L 16 97 02/02/22 08:00 97.8 F 56 L 15 96 02/02/22 07:57 54 L 02/02/22 07:45 54 L 02/02/22 07:00 87 20 96 02/02/22 06:00 57 L 15 98 02/02/22 05:00 61 14 133/56 96 02/02/22 04:00 97.9 F 64 99 17 125/60 97 02/02/22 03:00 61 19 125/63 02/02/22 02:00 59 L 14 139/69 97 02/02/22 01:00 60 11 L 136/68 96 02/02/22 00:18 97.9 F 69 13 136/68 97 02/02/22 00:00 97.9 F 56 L 99 13 142/74 97 02/01/22 23:00 57 L 13 127/85 96 02/01/22 22:00 74 8 L 138/73 97 02/01/22 21:00 97.5 F L 64 18 125/71 95 02/01/22 20:11 84 02/01/22 20:01 81 02/01/22 20:00 57 L 99 13 137/74 97 02/01/22 19:00 60 13 95 02/01/22 18:00 82 27 H 139/79 02/01/22 17:40 66 11 L 02/01/22 17:29 66 20 02/01/22 17:00 70 10 L 132/77 97 02/01/22 16:00 97.9 F 67 12 129/68 94 L Intake and Output 02/02/22 02/02/22 02/02/22 06:59 14:59 22:59 Intake Total 90 80 Output Total 1445 980 Balance -1355 -900 Intake: IV 90 80 0.9 NACL 90 80 Output: Urine 1445 980 Other: Voiding Method Indwelling Catheter Indwelling Catheter Weight 106.4 kg ABP, PAP, CO, CI - Last 8 Hours Arterial Blood Pressure 119/64 Arterial Blood Pressure 133/73 Arterial Blood Pressure 121/76 Arterial Blood Pressure 128/66 Arterial Blood Pressure 120/76 Arterial Blood Pressure 155/69 Arterial Blood Pressure 162/71 Results CBC & Chem 7: 02/02/22 05:10 02/02/22 05:10 Labs: Abnormal Lab Results - Last 24 Hours (Table) 02/01/22 02/02/22 02/02/22 Range/Units 18:19 00:16 05:10 POC Glucose (mg/dL) 105 H 103 H (75-99) mg/dL Calcium 8.2 L (8.4-10.2) mg/dL 02/02/22 Range/Units 11:23 POC Glucose (mg/dL) 158 H (75-99) mg/dL Calcium (8.4-10.2) mg/dL Microbiology - Last 24 Hours (Table) 02/01/22 00:39 Gram Stain - Preliminary Sputum Sputum Culture - Preliminary
[2022-02-02] MEDS: ASPIRIN 81 MG PO SCH (16:38)
[2022-02-02] MEDS: FUROSEMIDE 40 MG TAB PO SCH (16:38)
[2022-02-02 17:18] LABS: Glucose,Whole Blood 107 mg/dL (75-99)
[2022-02-02 20:18] LABS: Glucose,Whole Blood 129 mg/dL (75-99)
[2022-02-02] MEDS: ATORVASTATIN 10 MG TAB PO SCH (21:03)
[2022-02-03 04:38] VITALS: BP 147/79; RESP 16; TEMP 97.5
[2022-02-03 07:08] LABS: HCT 44.1 % (34.0-46.0); HGB 14.1 gm/dL (11.4-16.0); MCH 30.6 pg (25.0-35.0); MCHC 31.9 g/dL (31.0-37.0); MCV 96.1 fL (80.0-100.0); Mean Platelet Volume 7.9; Platelet Count 215 k/uL (150-450); RBC 4.59 m/uL (3.80-5.40); RDW 14.6 % (11.5-15.5); WBC 8.1 k/uL (3.8-10.6)
[2022-02-03 07:16] LABS: Glucose,Whole Blood 117 mg/dL (75-99)
[2022-02-03 07:20] LABS: African American GFR (CKD) 84 (>60 ml/min/1.73 sqM); Anion Gap 8 mmol/L; Blood Urea Nitrogen 20 mg/dL (7-17); Calcium 8.9 mg/dL (8.4-10.2); Carbon Dioxide 26 mmol/L (22-30); Chloride 103 mmol/L (98-107); Glucose 106 mg/dL (74-99); Magnesium 1.8 mg/dL (1.6-2.3); Non-African American GFR(CKD) 73 (>60 ml/min/1.73 sqM); Potassium 4.2 mmol/L (3.5-5.1); Sodium 137 mmol/L (137-145)
[2022-02-03] MEDS: INSULIN ASPART (NovoLOG) 100 UNIT/ML VIAL SQ SCH ×2 (07:29→11:06)
[2022-02-03] MEDS: SYMBICORT 160-4.5 MCG INHALER INHALATION SCH (07:46)
[2022-02-03] MEDS: IPRATROPIUM-ALBUTEROL 3 ML NEB INHALATION SCH ×2 (07:46→11:25)
[2022-02-03] MEDS: LOSARTAN 50 MG TAB PO SCH (08:08)
[2022-02-03] MEDS: PANTOPRAZOLE 40 MG TABLET PO SCH (08:08)
[2022-02-03] MEDS: MAGNESIUM OXIDE 400 MG TAB PO SCH (08:08)
[2022-02-03] MEDS: POTASSIUM CHLORIDE ER 20 MEQ TAB.ER PO SCH (08:08)
[2022-02-03] MEDS: ENOXAPARIN 40 MG/0.4 ML SYRINGE SQ SCH (08:08)
[2022-02-03] MEDS: carvediloL 12.5 MG TAB PO SCH (08:08)
[2022-02-03] MEDS: FUROSEMIDE 40 MG TAB PO SCH (08:08)
[2022-02-03] MEDS ORDERED: FUROSEMIDE 40 MG TAB PO SCH (09:00)
--- NOTE | 2022-02-03 10:56 | P.PN ---
Subjective Progress Note Date: 02/03/22 Principal diagnosis: Acute hypoxia, pulmonary edema 46-year-old female patient with past medical history of morbid obesity, hyperlipidemia, diabetes type 2, COPD with baseline FEV1 value of 64% of predicted, previous history of tobacco dependence, diastolic CHF, cardiomyopathy with ejection fraction of 45-50%, moderate pulmonary hypertension, history of previous craniotomy for Chiari malformation and previous Cristy fundoplication. Patient recently had cystoscopy with left ureteral stent insertion for left hydronephrosis secondary to left ureteral calculus by Dr. Shukla on 01/10/2022. Patient was hospitalized and discharged home on 01/12/2022. On 01/31/2022 patient had cystoscopy, left ureteral stent removal, left ureteroscopic and laser lithotripsy. Patient developed worsening dyspnea and hypoxia, and required to be reintubated in the recovery room. We were consulted for ICU management. Chest x-ray showed diffuse predominantly interstitial edema, ET tube in good position 3.3 cm above alfonso. Patient is being sedated with Diprivan. We'll start IV Lasix, blood gas shows pO2 of 227, pCO2 of 76, pH is 7.14 and this was done on assist-control with a rate of 12, tidal volume were 50, FiO2 100% and PEEP of 5. On 02/01/2022 patient seen in follow-up in intensive care unit, overnight she remained sedated, and intubated on mechanical ventilator assist control with a rate of 20, [place] is 450, FiO2 of 30% and PEEP of 5, this morning's blood gas shows pO2 of 98, pCO2 of 36, and pH of 7.46 this was done and FiO2 of 40% which subsequently dropped down to 30%. Today's chest x-ray show significant improvement in the appearance of bilateral upper lobe infiltrates. There was increasing left lower lobe infiltrate and small effusion. Pleural fluid status has improved. Patient remains on Lasix 40 mg every 8 hours. She is in -722 mL net fluid balance over the last 24 hours, she remains on 0.9 with faint at a rate of 20 ML per hour, Diprivan at 50 mics per kilo per minute, and no drip at 1.2 mics per kilo per minute, she is currently undergoing a sedation holiday, she is followed command, she is moving all 4 extremities, she is becoming agit ated and restless. She was placed on pressure-support of 5 and CPAP of 5, she is tolerating weaning trials quite well. Vital signs have been stable overnight, no vasopressor support was required, Olson catheter is in place, she is producing 40-100 mL per hour of urine. A cardiogram has been completed showing EF 50-55%, mild concentric LVH, no aortic stenosis or regurgitation, trace mitral regurgitation On 02/03/2022 patient seen in follow-up on medical surgical floor, she is breathing quite comfortably, she is tolerating ambulation in the room, does not appear to be in any acute distress, mentation is appropriate, she is awake and alert and oriented 3, room air pulse ox is 96%, she's been afebrile, blood pressure has been stable. Last chest x-ray showed pulmonary venous congestion a nd cardiomegaly, improved from prior study. Echocardiogram showed mild concentric LVH, and a low-normal ejection fraction of 50-55%. No aortic stenosis or regurgitation. Patient has been transitioned to oral Lasix 40 mg twice daily, she has had no complaints of chest pain, no worsening dyspnea, no cough, no congestion, she remains on nebulized bronchodilators, she is on aspirin, Lipitor Coreg, prophylactic Lovenox, losartan. Today's labs have been reviewed, CBC was unremarkable, electrolytes were within normal limits, BUN is 20 creatinine 0.95. Objective - Vital Signs Vital signs: Vital Signs Temp 97.5 F L 02/03/22 04:37 Pulse 68 02/03/22 08:00 Resp 16 02/03/22 04:37 BP 147/79 02/03/22 04:37 Pulse Ox 96 02/03/22 07:48 Intake & Output 02/02/22 02/03/22 02/03/22 18:59 06:59 18:59 Intake Total 330 Output Total 1020 Balance -690 Weight 101.864 kg Intake: IV 90 0.9 NACL 90 Oral 240 Output: Urine 1020 Other: Voiding Method Indwelling Catheter Toilet # Voids 3 ABP, PAP, CO, CI - Last Documented Arterial Blood Pressure 119/64 - Exam GENERAL EXAM: awake and alert, 46-year-old morbidly obese white female, on room air comfortable in no apparent distress. HEAD: Normocephalic/atraumatic. EYES: Normal reaction of pupils, equal size. Conjunctiva pink, sclera white. NOSE: Clear with pink turbinates. THROAT: No erythema or exudates. NECK: No masses, no JVD, no thyroid enlargement, no adenopathy. CHEST: No chest wall deformity. Symmetrical expansion. LUNGS: Equal air entry with no crackles, wheeze, rhonchi or dullness. CVS: Regular rate and rhythm, normal S1 and S2, no gallops, no murmurs, no rubs ABDOMEN: Soft, nontender. No hepatosplenomegaly, normal bowel sounds, no guarding or rigidity. EXTREMITIES: No clubbing, no edema, no cyanosis, 2+ pulses and upper and lower extremities. MUSCULOSKELETAL: Muscle strength and tone normal. SPINE: No scoliosis or deformity SKIN: No rashes CENTRAL NERVOUS SYSTEM: Awake and alert oriented times three No focal deficits, tone is normal in all 4 extremities. - Labs CBC & Chem 7: 02/03/22 06:35 02/03/22 06:35 Labs: Abnormal Lab Results - Last 24 Hours (Table) 02/02/22 02/02/22 02/02/22 Range/Units 11:23 17:17 20:16 BUN (7-17) mg/dL Glucose (74-99) mg/dL POC Glucose (mg/dL) 158 H 107 H 129 H (75-99) mg/dL 02/03/22 02/03/22 Range/Units 06:35 07:15 BUN 20 H (7-17) mg/dL Glucose 106 H (74-99) mg/dL POC Glucose (mg/dL) 117 H (75-99) mg/dL Microbiology - Last 24 Hours (Table) 02/01/22 00:39 Gram Stain - Final Sputum Sputum Culture - Final Assessment and Plan Plan: Assessment: #1. Acute hypoxic and hypercapnic respiratory failure related to acute pulmonary edema, and patient required to be reintubated in the recovery room post cystoscopy, left ureteral stent removal, left ureteroscopic and laser lithotripsy on 01/31/2022. Patient was successfully weaned and extubated on 02/01/2022 #2. History of systolic CHF and cardiomyopathy and EF of 45% #3. Recent history of left hydronephrosis secondary to left ureteral calculus status post cystoscopy and left ureteral stent placement on 01/10/2022 #4. History of kidney stones #5. History of COPD with FEV1 of 64% predicted #6. GERD #7. Hypertension #8. Morbid obesity with a BMI of 40.6 kg/m #9. Paroxysmal atrial fibrillation on Eliquis #10. Diabetes mellitus type 2 #11. History of sleep apnea #12. History of Chiari malformation and previous history of craniotomy #13. History of seizure disorder Plan: Patient is doing quite well Chest x-ray showing improving pulmonary venous congestion Vital signs are stable She is tolerating ambulation She is maintaining stable O2 saturations on room air She has been transitioned to oral Lasix Echocardiogram has been reviewed No acute events overnight Stable for discharge home from pulmonary perspective if cleared by medicine and surgery I have personally seen and examined the patient, performed the documentation and the assessment and plan as written. Number of minutes spent on the visit: [10] Time with Patient: Less than 30
--- NOTE | 2022-02-03 11:25 | P.DS ---
Providers Date of admission: 01/31/22 13:57 Expected date of discharge: 02/03/22 Attending physician: Ricardo Aguiar Consults: 01/31/22 14:06 Consult Physician Stat Consulting Provider: Presley De La Garza Consult Reason/Comments: ICU CARE Do you want consulting provider notified?: Already Contacted 02/02/22 09:15 Consult Physician Routine Consulting Provider: Nakia Pinzon Consult Reason/Comments: Medical managment Do you want consulting provider notified?: Yes Primary care physician: James Harvey - Discharge Diagnosis(es) (1) Calculus of ureter Current Visit: No Status: Acute (2) Calculus of kidney Current Visit: No Status: Acute Hospital Course: On January 31, the patient underwent cystoscopy, left ureteral stent removal, left ureteroscopy with Holmium laser lithotripsy to treat her ureteral and renal calculi. The procedure was uncomplicated and discharged home following the procedure was anticipated. However, she required reintubation in the recovery room and was subsequently transferred to the ICU. She was managed there by Dr. De La Garza and extubated the following day. On February 02, her condition was stable and she was transferred to the floor. She reported diffuse upper abdominal discomfort, the etiology of which was unclear. However, on the day of discharge that had resolved and she was comfortable. Specifically, she denied dyspnea and abdominal pain. She denied difficulty voiding. Laboratory values appeared normal. Patient Condition at Discharge: Fair Plan - Discharge Summary Discharge Rx Participant: Yes New Discharge Prescriptions: Continue Ipratropium-Albuterol Nebulize [Duoneb 0.5 mg-3 mg/3 ml Soln] 3 ml INHALATION RT-Q6H PRN PRN Reason: Shortness Of Breath Rizatriptan Benzoate [Rizatriptan] 10 mg PO BID PRN PRN Reason: Migraine Headache Apixaban [Eliquis] 5 mg PO BID #60 tab Carvedilol [Coreg] 25 mg PO BID-W/MEALS Magnesium 300 mg PO DAILY Furosemide [Lasix] 40 mg PO BID Fluticasone/Salmeterol [Advair 500-50 Diskus] 1 puff INHALATION RT-BID Simvastatin [Zocor] 10 mg PO HS Aspirin EC [Ecotrin Low Dose] 81 mg PO W/SUPPER Potassium Chloride ER [K-Dur 20] 20 meq PO BID Albuterol Inhaler [Ventolin Hfa Inhaler] 1 puff INHALATION RT-Q6H PRN PRN Reason: Shortness Of Breath Losartan Potassium [Cozaar] 100 mg PO BID Acetaminophen [Tylenol] 2,000 mg PO Q4-6H PRN PRN Reason: Pain Discharge Medication List Fluticasone/Salmeterol [Advair 500-50 Diskus] 1 puff INHALATION RT-BID 09/06/21 [History] Ipratropium-Albuterol Nebulize [Duoneb 0.5 mg-3 mg/3 ml Soln] 3 ml INHALATION RT-Q6H PRN 09/06/21 [History] Rizatriptan Benzoate [Rizatriptan] 10 mg PO BID PRN 09/06/21 [History] Simvastatin [Zocor] 10 mg PO HS 09/06/21 [History] Apixaban [Eliquis] 5 mg PO BID #60 tab 09/07/21 [Rx] Aspirin EC [Ecotrin Low Dose] 81 mg PO W/SUPPER 10/11/21 [History] Carvedilol [Coreg] 25 mg PO BID-W/MEALS 10/11/21 [History] Magnesium 300 mg PO DAILY 10/11/21 [History] Albuterol Inhaler [Ventolin Hfa Inhaler] 1 puff INHALATION RT-Q6H PRN 11/08/21 [History] Furosemide [Lasix] 40 mg PO BID 11/08/21 [History] Potassium Chloride ER [K-Dur 20] 20 meq PO BID 11/08/21 [History] Losartan Potassium [Cozaar] 100 mg PO BID 01/09/22 [History] Acetaminophen [Tylenol] 2,000 mg PO Q4-6H PRN 01/29/22 [History] Follow up Appointment(s)/Referral(s): Ricardo Aguiar MD [STAFF PHYSICIAN] - 2 Weeks [facility], [NON-STAFF] - 1-2 Days James Harvey DO [Primary Care Provider] - 1 Week Patient Instructions/Handouts: Acute Respiratory Failure (GEN) Activity/Diet/Wound Care/Special Instructions: Diet as tolerated. Activity as tolerated. Daily weights take medications as prescribed Discharge Disposition: HOME SELF-CARE
[2022-02-03 11:38] VITALS: PULSE 70
--- NOTE | 2022-02-03 13:08 | P.PN ---
Subjective Progress Note Date: 02/03/22 (delayed charting seen at 11am ) Principal diagnosis: Kidney stone Patient is a 46-year-old female with known history of kidney stones requiring lithotripsy, COPD, GERD, Paroxysmal A fib, hypertension, and multiple other comorbid conditions who presented for left ureteral stent removal and lithptripsy. She was recently hospitalized from 01/09 throught 01/12 for UTI with left obstruction ureteral calcous requiring cystoscopy with left ureteral stent. Patient required reintubation in the PACU due to respiratory distress. Chest x- ray showed intersitial infiltrates. She was transferred to the ICU abd was started on IVF lasix for acute exacerbation of systolic CHF. Her troponin were mildly elevated but flat and not consistent with acute coronary syndrome. Echocardiogram was completed which showed LVH with ejection fraction of 50-55%. Patient continued to improve with diuresis and was ultimately extubated on 02/01/2022. We're consulted for diabetic management. Patient seen and examined at bedside. No chest pain, no shortness of breath, feeling well, no sweeling, back pain better. Wants to go home. General: non toxic, no distress, appears older than stated age, obese Derm: warm, dry Head: atraumatic, normocephalic, symmetric Eyes: EOMI, no lid lag, anicteric sclera Mouth: no lip lesion, mucus membranes moist Cardiovascular: S1S2 reg, no murmur, positive posterior tibial pulse bilateral, Lungs: CTA bilateral, no rhonchi, no rales , no accessory muscle use Abdominal: soft, nontender to palpation, no guarding, no appreciable organomegaly Ext: no gross muscle atrophy, no edema, no contractures Neuro: CN II-XI grossly intact, no focal neuro deficits Psych: Alert, oriented, appropriate affect Assessment/ Plan: Acute exacerbation of diastolic congestive heart failure with ejection fraction 50-55% Acute hypoxic respiratory failure -Resume Lasix 40 mg twice daily as home and her prior potassium dosing -Continue with Beta Suki, ARB -Strict I's and O's -Daily Weights -Patient advised on outpatient Cardiology Follow-Up Diabetes mellitus type 2 - diet controlled at home - SSI - outpatient follow-up Paroxysmal atrial fibrillation Hypertension, accelerated Elevated troponin, not clinically significant and not consistent with acute coronary syndrome - julianne okay to resume at home discussed with urology - jordin omalley - follow BP Morbid obesity wtih BMI 44.3 - structured outpatient weight loss COPD without exacerbation Obstructive sleep apnea without CPAP use - bronchodilators - pulm hygeine Thorasic muscle strain, resolved - toradol - increase activity Chronic: Seizure disorder Craniotomy for Chiari malformation Dyslipidemia GERD Occipital neuritis Vertigo underlying bilateral neuropathy DVT prophylaxis: Lovenox Discussed with: Patient, Dr. Shukla, nursing Medically optimized for discharge. Discharge med rec addressed. Objective - Vital Signs Vital signs: Vital Signs Temp 97.5 F L 02/03/22 04:37 Pulse 70 02/03/22 11:37 Resp 16 02/03/22 04:37 BP 147/79 02/03/22 04:37 Pulse Ox 96 02/03/22 07:48 Intake & Output 02/02/22 02/03/22 02/03/22 18:59 06:59 18:59 Intake Total 330 Output Total 1020 Balance -690 Weight 101.864 kg Intake: IV 90 0.9 NACL 90 Oral 240 Output: Urine 1020 Other: Voiding Method Indwelling Catheter Toilet # Voids 3 ABP, PAP, CO, CI - Last Documented Arterial Blood Pressure 119/64 - Labs CBC & Chem 7: 02/03/22 06:35 02/03/22 06:35 Labs: Abnormal Lab Results - Last 24 Hours (Table) 02/02/22 02/02/22 02/03/22 Range/Units 17:17 20:16 06:35 BUN 20 H (7-17) mg/dL Glucose 106 H (74-99) mg/dL POC Glucose (mg/dL) 107 H 129 H (75-99) mg/dL 02/03/22 Range/Units 07:15 BUN (7-17) mg/dL Glucose (74-99) mg/dL POC Glucose (mg/dL) 117 H (75-99) mg/dL Microbiology - Last 24 Hours (Table) 02/01/22 00:39 Gram Stain - Final Sputum Sputum Culture - Final
== END 2022-02-03 12:10 | disposition home health service (06) | DRG 208 ==
LOC: OR 09:23 → 2SICU 13:57 → 5NMEDONC 02-02 15:43
PROVIDERS: ADMIT Urology; ATTEND Urology
PROC: 5A1935Z Respiratory Ventilation, Less than 24 Consecutive Hours (ICD-10-PCS; principal; 2022-01-31 11:00)
PROC: 0TC18ZZ Extirpation of Matter from Left Kidney, Via Natural or Artificial Opening Endoscopic (ICD-10-PCS; 2022-01-31 11:00)
PROC: 0TC78ZZ Extirpation of Matter from Left Ureter, Via Natural or Artificial Opening Endoscopic (ICD-10-PCS; 2022-01-31 11:00)
PROC: 0TP98DZ Removal of Intraluminal Device from Ureter, Via Natural or Artificial Opening Endoscopic (ICD-10-PCS; 2022-01-31 11:00)
PROC: 0BH17EZ Insertion of Endotracheal Airway into Trachea, Via Natural or Artificial Opening (ICD-10-PCS; 2022-01-31 11:00)
DX: J96.02 Acute respiratory failure with hypercapnia (principal); I50.33 Acute on chronic diastolic (congestive) heart failure; I42.9 Cardiomyopathy, unspecified; Z68.41 Body mass index [BMI] 40.0-44.9, adult; N13.2 Hydronephrosis with renal and ureteral calculous obstruction; I27.20 Pulmonary hypertension, unspecified; E11.40 Type 2 diabetes mellitus with diabetic neuropathy, unspecified; E66.01 Morbid (severe) obesity due to excess calories; I48.0 Paroxysmal atrial fibrillation; G43.909 Migraine, unspecified, not intractable, without status migrainosus; I11.0 Hypertensive heart disease with heart failure; J44.9 Chronic obstructive pulmonary disease, unspecified; J96.01 Acute respiratory failure with hypoxia; E78.5 Hyperlipidemia, unspecified; G47.33 Obstructive sleep apnea (adult) (pediatric); K21.9 Gastro-esophageal reflux disease without esophagitis; S29.012A Strain of muscle and tendon of back wall of thorax, initial encounter; M54.81 Occipital neuralgia; R42 Dizziness and giddiness; R77.8 Other specified abnormalities of plasma proteins; F17.200 Nicotine dependence, unspecified, uncomplicated; Z79.01 Long term (current) use of anticoagulants; Z79.82 Long term (current) use of aspirin; Z79.51 Long term (current) use of inhaled steroids; Z79.84 Long term (current) use of oral hypoglycemic drugs; Z79.899 Other long term (current) drug therapy; Z87.798 Personal history of other (corrected) congenital malformations; Z87.11 Personal history of peptic ulcer disease; Z87.19 Personal history of other diseases of the digestive system; Z87.442 Personal history of urinary calculi; Z87.01 Personal history of pneumonia (recurrent); Z86.69 Personal history of other diseases of the nervous system and sense organs; Z86.16 Personal history of COVID-19; Z86.010 Personal history of colon polyps; Z90.49 Acquired absence of other specified parts of digestive tract; Z90.79 Acquired absence of other genital organ(s); Z90.721 Acquired absence of ovaries, unilateral; Z87.440 Personal history of urinary (tract) infections; Z98.890 Other specified postprocedural states; Z88.5 Allergy status to narcotic agent; Z88.8 Allergy status to other drugs, medicaments and biological substances; Z91.018 Allergy to other foods; Z82.49 Family history of ischemic heart disease and other diseases of the circulatory system; Z83.3 Family history of diabetes mellitus; Z80.1 Family history of malignant neoplasm of trachea, bronchus and lung; Z80.0 Family history of malignant neoplasm of digestive organs
CPT/HCPCS: 71045; 74018; 80048; 80053; 81025; 82365; 82805; 83735; 83880; 84100; 84132; 84484; 85025; 85027; 87070; 87205; 93005; 93306; 94002; 94003; 94640; 94760

== ENCOUNTER 2022-07-25 00:22 | Observation (INO) | payer OTHER ==
[2022-07-25 00:32] VITALS: RESP 18
[2022-07-25] MEDS ORDERED: NITROGLYCERIN SL TABS 0.4 MG TAB SUBLINGUAL STA (00:49)
[2022-07-25] MEDS ORDERED: ASPIRIN 81 MG PO STA (00:49)
[2022-07-25] MEDS ORDERED: ONDANSETRON 4 MG/2 ML VIAL IVP STA (00:49)
--- NOTE | 2022-07-25 01:06 | ED ---
General Adult HPI - General Chief complaint: Chest Pain Stated complaint: Chest Pressure, nausea Time Seen by Provider: 07/25/22 00:40 Source: patient Mode of arrival: wheelchair - History of Present Illness Initial comments: Dictation was produced using [employer] dictation software. please excuse any grammatical, word or spelling errors. Chief Complaint: 46-year-old female presents emergency Department chest pressure History of Present Illness: 46-year-old female multiple comorbidities. She presents emergency department for 2-3 days of chest pressure. She states that it's substernal with radiation to the left upper extremity. She states that it's associated with nausea. Patient denies any shortness of breath. She does have history of coronary artery disease identified from recent cardiac catheterization. Patient did not take any aspirin or nitroglycerin prior to her symptoms. Patient does report significant symptoms at the bedside currently. The ROS documented in this emergency department record has been reviewed and confirmed by me. Those systems with pertinent positive or negative responses have been documented in the HPI. All other systems are other negative and/or noncontributory. PHYSICAL EXAM: General Impression: Alert and oriented x3, not in acute distress HEENT: Normocephalic atraumatic, extra-ocular movements intact, pupils equal and reactive to light bilaterally, mucous membranes moist. Cardiovascular: Heart regular rate and rhythm Chest: Able to complete full sentences, no retractions, no tachypnea Abdomen: abdomen soft, non-tender, non-distended, no organomegaly Musculoskeletal: Pulses present and equal in all extremities, no peripheral edema Motor: no focal deficits noted Neurological: CN II-XII grossly intact, no focal motor or sensory deficits noted Skin: Intact with no visualized rashes Psych: Normal affect and mood ED course: 46-year-old female with known history of coronary artery disease presents emergency department with chest pain concerning for acute coronary syndrome. All signs upon arrival are within acceptable limits. EKG shows left bundle branch block that appears to be baseline compared to EKG from 06/08/2022 Laboratory evaluation obtained. CBC within acceptable limits. Coag panel is negative. Metabolic panel is within acceptable limits. Troponin is 0.024. Patient given nitroglycerin with complete resolution of her symptoms. Patient given aspirin. Clinical presentation consistent with acute coronary syndrome. Lab results disposition recommendations were discussed with the patient. Patient states she is apprehensive about being admitted to the hospital because if she misses work tomorrow at 9 AM she will lose her job. Patient decided that she is agreeable for admission. Patient be admitted to [facility] hospitalist group with consultation cardiology. EKG interpretation: Ventricular rate 66, sinus rhythm,. Interval 187, QS 157, QTc 462. No [place] prolongation, no QTC prolongation, no ST or T-wave changes noted. EKG compared to June 08 2022 showing no changes. Overall, this EKG is unremarkable - Related Data Home Medications Medication Instructions Recorded Confirmed Fluticasone Propion/Salmeterol 1 puff INHALATION RT-BID 09/06/21 06/08/22 [Advair 500-50 Diskus] Ipratropium-Albuterol Nebulize 3 ml INHALATION RT-Q6H PRN 09/06/21 06/08/22 [Duoneb 0.5 mg-3 mg/3 ml Soln] Rizatriptan Benzoate [Rizatriptan] 10 mg PO BID PRN 09/06/21 06/08/22 Simvastatin [Zocor] 10 mg PO HS 09/06/21 06/08/22 Aspirin EC [Ecotrin Low Dose] 81 mg PO W/SUPPER 10/11/21 06/08/22 carvediloL [Coreg] 25 mg PO BID-W/MEALS 10/11/21 06/08/22 Albuterol Inhaler [Ventolin Hfa 1 puff INHALATION RT-Q6H PRN 11/08/21 06/08/22 Inhaler] Furosemide [Lasix] 40 mg PO BID 11/08/21 06/08/22 Potassium Chloride ER [K-Dur 20] 20 meq PO BID 11/08/21 06/08/22 Losartan Potassium [Cozaar] 100 mg PO DAILY 01/09/22 06/08/22 Magnesium 300mg 300 mg PO DAILY 06/06/22 06/08/22 glipiZIDE [Glucotrol] 5 mg PO DAILY 06/06/22 06/08/22 Previous Rx's Medication Instructions Recorded Acetaminophen Tab [Tylenol] 650 mg PO Q6HR PRN tab 06/11/22 Apixaban [Eliquis] 5 mg PO BID tab 06/11/22 Allergies Allergy/AdvReac Type Severity Reaction Status Date / Time pregabalin [From Lyrica] Allergy Unknown Unknown Verified 07/25/22 00:32 acetylcysteine Allergy Swelling Verified 07/25/22 00:32 hydromorphone HCl AdvReac headache Verified 07/25/22 00:32 [From Dilaudid] BERRIES Allergy Anaphylaxis Uncoded 07/25/22 00:32 Review of Systems ROS Statement: Those systems with pertinent positive or pertinent negative responses have been documented in the HPI. ROS Other: All systems not noted in ROS Statement are negative. Past Medical History Past Medical History: Atrial Fibrillation, Heart Failure, COPD, GERD/Reflux, Hyp erlipidemia, Hypertension, Pneumonia, Seizure Disorder, Sleep Apnea/CPAP/BIPAP Additional Past Medical History / Comment(s): Hx mult kidney stones, Hx pneumonia /vented-2011, peptic ulcers, Sleep apnea-no device currently, bilat occipital neuritis, headaches, vertigo, neuropathy BLE;"legs give out at times". States has "convulsions" "I get numb,fall asleep,and shake, but I'm aware of my surroundings" daily. hx of diverticulitis, colon polyps, hemmorhoids. edema BLE. +Covid 11/08/21 w/ mild sx. History of Any Multi-Drug Resistant Organisms: None Reported Past Surgical History: Cholecystectomy, Hernia Repair Additional Past Surgical History / Comment(s): brain surgery 2012 for seizures & headaches, Right ovary/tube removed 2009, D&C, Picc line insertion since removed, Kidney stone surgically removed & lithotripsy., Laproscopic Cristy Fundoplasty. Colonoscopy; Cysto w/ ureteral stent 01/10/22 Past Anesthesia/Blood Transfusion Reactions: No Reported Reaction, Motion Sickness Additional Past Anesthesia/Blood Transfusion Reaction / Comment(s): no known family hx Past Psychological History: No Psychological Hx Reported Smoking Status: Current every day smoker Past Alcohol Use History: None Reported Past Drug Use History: None Reported, Marijuana - Past Family History Father Family Medical History: AFIB, Diabetes Mellitus, Hypertension Additional Family Medical History / Comment(s): Father is alive at age 67 with history of atrial fibrillation, diabetes, hypertension, pacemaker. Mother Family Medical History: Cancer Additional Family Medical History / Comment(s): Mother of pancreatic cancer at the age of 58yrs. Maternal cousin had pancreatic cancer. Maternal uncle had lung cancer. Sister(s) Family Medical History: AICD/Pacemaker Additional Family Medical History / Comment(s): the patient has one sister with AICD. Second sister has no major medical problems. Patient's 1 brother that is healthy. Patient has one son and one daughter with no major medical problems. Course Vital Signs 07/25/22 07/25/22 00:28 01:51 Temperature 98.5 F 98.8 F Pulse Rate 72 87 Respiratory 18 18 Rate Blood Pressure 144/95 119/74 O2 Sat by Pulse 98 99 Oximetry Medical Decision Making - Lab Data Result diagrams: 07/25/22 00:50 07/25/22 00:50 Lab Results 07/25/22 07/25/22 07/25/22 Range/Units 00:50 00:50 00:50 WBC 10.7 H (3.8-10.6) k/uL RBC 5.35 (3.80-5.40) m/uL Hgb 16.2 H (11.4-16.0) gm/dL Hct 47.6 H (34.0-46.0) % MCV 89.1 (80.0-100.0) fL MCH 30.2 (25.0-35.0) pg MCHC 33.9 (31.0-37.0) g/dL RDW 13.2 (11.5-15.5) % Plt Count 231 (150-450) k/uL MPV 8.1 Neutrophils % 59 % Lymphocytes % 31 % Monocytes % 4 % Eosinophils % 3 % Basophils % 1 % Neutrophils # 6.3 (1.3-7.7) k/uL Lymphocytes # 3.3 (1.0-4.8) k/uL Monocytes # 0.5 (0-1.0) k/uL Eosinophils # 0.3 (0-0.7) k/uL Basophils # 0.1 (0-0.2) k/uL PT 10.9 (9.0-12.0) sec INR 1.0 (<1.2) APTT 26.9 (22.0-30.0) sec Sodium 140 (137-145) mmol/L Potassium 4.1 (3.5-5.1) mmol/L Chloride 103 (98-107) mmol/L Carbon Dioxide 25 (22-30) mmol/L Anion Gap 12 mmol/L BUN 23 H (7-17) mg/dL Creatinine 0.96 (0.52-1.04) mg/dL Est GFR (CKD-EPI)AfAm 82 (>60 ml/min/1.73 sqM) Est GFR (CKD-EPI)NonAf 71 (>60 ml/min/1.73 sqM) Glucose 107 H (74-99) mg/dL Calcium 9.7 (8.4-10.2) mg/dL Troponin I (0.000-0.034) ng/mL 07/25/22 Range/Units 00:50 WBC (3.8-10.6) k/uL RBC (3.80-5.40) m/uL Hgb (11.4-16.0) gm/dL Hct (34.0-46.0) % MCV (80.0-100.0) fL MCH (25.0-35.0) pg MCHC (31.0-37.0) g/dL RDW (11.5-15.5) % Plt Count (150-450) k/uL MPV Neutrophils % % Lymphocytes % % Monocytes % % Eosinophils % % Basophils % % Neutrophils # (1.3-7.7) k/uL Lymphocytes # (1.0-4.8) k/uL Monocytes # (0-1.0) k/uL Eosinophils # (0-0.7) k/uL Basophils # (0-0.2) k/uL PT (9.0-12.0) sec INR (<1.2) APTT (22.0-30.0) sec Sodium (137-145) mmol/L Potassium (3.5-5.1) mmol/L Chloride (98-107) mmol/L Carbon Dioxide (22-30) mmol/L Anion Gap mmol/L BUN (7-17) mg/dL Creatinine (0.52-1.04) mg/dL Est GFR (CKD-EPI)AfAm (>60 ml/min/1.73 sqM) Est GFR (CKD-EPI)NonAf (>60 ml/min/1.73 sqM) Glucose (74-99) mg/dL Calcium (8.4-10.2) mg/dL Troponin I 0.024 (0.000-0.034) ng/mL Disposition Clinical Impression: ACS (acute coronary syndrome) Disposition: ADMITTED IP TO THIS HOSP Condition: Serious Referrals: James Harvey DO [Primary Care Provider] - 1-2 days Decision Time: 02:43
[2022-07-25 01:17] LABS: Basophils # (A) 0.1 k/uL (0-0.2); Basophils % (A) 1 %; Eosinophils # (A) 0.3 k/uL (0-0.7); Eosinophils % (A) 3 %; HCT 47.6 % (34.0-46.0); HGB 16.2 gm/dL (11.4-16.0); Lymphocytes # (A) 3.3 k/uL (1.0-4.8); Lymphocytes % (A) 31 %; MCH 30.2 pg (25.0-35.0); MCHC 33.9 g/dL (31.0-37.0); MCV 89.1 fL (80.0-100.0); Mean Platelet Volume 8.1; Monocytes # (A) 0.5 k/uL (0-1.0); Monocytes % (A) 4 %; Neutrophils # (A) 6.3 k/uL (1.3-7.7); Neutrophils % (A) 59 %; Platelet Count 231 k/uL (150-450); RBC 5.35 m/uL (3.80-5.40); RDW 13.2 % (11.5-15.5); WBC 10.7 k/uL (3.8-10.6)
[2022-07-25 01:24] LABS: Partial Thromboplastin Time 26.9 sec (22.0-30.0); Prothrombin Time 10.9 sec (9.0-12.0)
[2022-07-25 01:26] LABS: Calcium 9.7 mg/dL (8.4-10.2); Potassium 4.1 mmol/L (3.5-5.1)
--- NOTE | 2022-07-25 01:26 | XR ---
EXAMINATION TYPE: XR chest 2V DATE OF EXAM: 07/24/2022 COMPARISON: 06/08/2022 HISTORY: Chest pain TECHNIQUE: FINDINGS: Heart and mediastinum are normal. Lungs are clear. Diaphragm is normal. Bony thorax is inta ct. There are chest leads. IMPRESSION: Normal chest.
[2022-07-25] MEDS: NITROGLYCERIN OINT 1 INCH/GM PACKET TOPICAL SCH ×2 (03:08→08:58)
[2022-07-25 05:40] VITALS: TEMP 97.4
[2022-07-25] MEDS ORDERED: carvediloL 12.5 MG TAB PO SCH (09:45)
[2022-07-25] MEDS ORDERED: LOSARTAN 50 MG TAB PO SCH (09:45)
[2022-07-25] MEDS ORDERED: APIXABAN 5 MG TAB PO SCH (09:45)
--- NOTE | 2022-07-25 09:46 | P.CRDCN ---
History of Present Illness History of present illness: HISTORY OF PRESENTING ILLNESS This is a pleasant 46-year-old female past medical history significant for hypertension, left bundle branch block, nonischemic cardiomyopathy, mild nonobstructive coronary artery disease, COPD, chronic nicotine dependence, paroxysmal atrial fibrillation on Eliquis, dyslipidemia. She followed with Dr. Rivera, going to follow up with Dr. Mendoza. We have been asked to see in consultation for chest discomfort. Patient presents to the emergency department with complaints of chest discomfort for about 2 days. She states it began in the morning and remained constant. She did notice it initially more while working at home on the computer. She also had some left shoulder pain as well. Initially she states that movement made it worse, but then states the past day there were no specific aggravating or alleviating factors. She had no associated symptoms. Her pain was non-radiating, non-exertional. She had no associated shortness of breath, palpitations, lightheadedness, dizziness, diaphoresis, nausea. She presents to the emergency department for further evaluation. She denies any history of IA, diabetes, stroke, seizure. She continues to smoke cigarettes. Patient evaluated in the emergency department with no changes in her EKG and cardiac and not enzymes were unremarkable. Patient was recently in the hospital May 2022, she underwent a Lexiscan stress test which was reported as abnormal. Patient underwent cardiac catheterization which revealed RCA with mild disease only. Distally bifurcates into PDA and PLV branches both appeared to have mild disease only. Left main is angiographically normal. The LCx is angiographically normal. Gives rise into the first and second obtuse marginal branches appeared to be angiographically normal. LAD: The first diagonal branches is a small to medium caliber vessel with ostial lesion appears to be in the range of 60%. Mild ostial disease only. The mid LAD has a lesion focal appeared to be in the range of 60%. FFR was performed and came in to be an 0.82. The LAD distally appeared to be tennille ographically normal DIAGNOSTICS * EKG reveals sinus rhythm, left bundle branch block, heart rate 66, no significant changes noted from prior EKGs. * Telemetry tracings indicate sinus rhythm LBBB * Chest xray no acute cardiopulmonary process * Echocardiogram 01/2022 revealed EF of 5055 percent, trace mitral regurgitation, mild tricuspid regurgitation * Laboratory reviewed, troponin negative 3, sodium 140, potassium 4.1, BUN 23, serum 0.9, WBC 10.7 and hemoglobin 16.2, platelets 231 * Current home medications include simvastatin 10 mg nightly, losartan 100 mg daily, potassium chloride, Lasix 40 mg twice a day, carvedilol 25 mg twice a day, Eliquis 5 mg twice a day, aspirin 81 mg daily REVIEW OF SYSTEMS At the time of my exam: CONSTITUTIONAL: Denies fever or chills. CARDIOVASCULAR: Denies chest pain, shortness of breath, orthopnea, PND or palpitations. RESPIRATORY: Denies cough. GASTROINTESTINAL: Denies abdominal pain, diarrhea, constipation, nausea or vomiting. MUSCULOSKELETAL: Denies myalgias. NEUROLOGIC: Denies numbness, tingling, headache or weakness. ENDOCRINE: Denies fatigue, weight change, polydipsia or polyurina. GENITOURINARY: Denies burning, hematuria or urgency with micturation. HEMATOLOGIC: Denies history of anemia or bleeding. PHYSICAL EXAMINATION Blood pressure 136/66 heart 72, afebrile, oxygen saturations 96% on room air CONSTITUTIONAL: No apparent distress. HEENT: Head is normocephalic. Pupils are equal, round. Sclerae anicteric. Mucous membranes of the mouth are moist. No JVD. No carotid bruit. CHEST EXAMINATION: Lungs are clear to auscultation. No chest wall tenderness is noted on palpation or with deep breathing. HEART EXAMINATION: Regular rate and rhythm. S1, S2 heard. No murmurs, gallops or rub. ABDOMEN: Soft, nontender. Positive bowel sounds. EXTREMITIES: 2+ peripheral pulses, no lower extremity edema and no calf tenderness. SKIN: warm, dry NEUROLOGIC EXAMINATION: Patient is awake, alert and oriented x3. ASSESSMENT Chest pain, acute coronary syndrome has been ruled out Mild non-obstructive coronary artery disease, with recent cardiac c atheterization 06/10/2022 with Intermediate lesion involving the mid LAD. Hypertension Left bundle branch block History of nonischemic cardiomyopathy with improved EF COPD Chronic nicotine dependence Paroxysmal atrial fibrillation on Eliquis Dyslipidemia PLAN Patient's chest discomfort does not appear to be cardiac in etiology. She had recent extensive cardiac workup, with recent cardiac catheterization with Intermediate lesion involving the mid LAD. FFR was performed and came in to be normal. An acute coronary event has been ruled out with no EKG evidence of ischemia and negative cardiac enzymes. Continue home cardiac medications Smoking cessation discussed and highly recommended. From cardiology perspective, patient stable to be discharged home. Close follow up outpatient with Dr. Mendoza. Thank you kindly for this consultation. Nurse practitioner note has been reviewed by physician. Signing provider agrees with the documented findings, assessment, and plan of care. Past Medical History Past Medical History: Atrial Fibrillation, Heart Failure, COPD, GERD/Reflux, Hyperlipidemia, Hypertension, Pneumonia, Seizure Disorder, Sleep Apnea/ CPAP/BIPAP Additional Past Medical History / Comment(s): Hx mult kidney stones, Hx pneumonia /vented-2011, peptic ulcers, Sleep apnea-no device currently, bilat occipital neuritis, headaches, vertigo, neuropathy BLE;"legs give out at times". States has "convulsions" "I get numb,fall asleep,and shake, but I'm aware of my surroundings" daily. hx of diverticulitis, colon polyps, hemmorhoids. edema BLE. +Covid 11/08/21 w/ mild sx. History of Any Multi-Drug Resistant Organisms: None Reported Past Surgical History: Cholecystectomy, Hernia Repair Additional Past Surgical History / Comment(s): brain surgery 2013 for seizures & headaches, Right ovary/tube removed 2009, D&C, Picc line insertion since removed, Kidney stone surgically removed & lithotripsy., Laproscopic Cristy Fundoplasty. Colonoscopy; Cysto w/ ureteral stent 01/10/22 Past Anesthesia/Blood Transfusion Reactions: No Reported Reaction, Motion Sickness Additional Past Anesthesia/Blood Transfusion Reaction / Comment(s): no known family hx Past Psychological History: No Psychological Hx Reported Smoking Status: Current every day smoker Past Alcohol Use History: None Reported Past Drug Use History: None Reported, Marijuana - Past Family History Father Family Medical History: AFIB, Diabetes Mellitus, Hypertension Additional Family Medical History / Comment(s): Father is alive at age 67 with history of atrial fibrillation, diabetes, hypertension, pacemaker. Mother Family Medical History: Cancer Additional Family Medical History / Comment(s): Mother of pancreatic cancer at the age of 58yrs. Maternal cousin had pancreatic cancer. Maternal uncle had lung cancer. Sister(s) Family Medical History: AICD/Pacemaker Additional Family Medical History / Comment(s): the patient has one sister with AICD. Second sister has no major medical problems. Patient's 1 brother that is healthy. Patient has one son and one daughter with no major medical problems. Medications and Allergies Home Medications Medication Instructions Recorded Confirmed Type Fluticasone Propion/Salmeterol 1 puff INHALATION RT-BID 09/06/21 07/25/22 History [Advair 500-50 Diskus] Rizatriptan Benzoate [Rizatriptan] 10 mg PO BID PRN 09/06/21 07/25/22 History Simvastatin [Zocor] 10 mg PO HS 09/06/21 07/25/22 History Aspirin EC [Ecotrin Low Dose] 81 mg PO W/SUPPER 10/11/21 07/25/22 History carvediloL [Coreg] 25 mg PO BID-W/MEALS 10/11/21 07/25/22 History Albuterol Inhaler [Ventolin Hfa 1 puff INHALATION RT-Q6H PRN 11/08/21 07/25/22 History Inhaler] Furosemide [Lasix] 40 mg PO BID-W/MEALS 11/08/21 07/25/22 History Potassium Chloride ER [K-Dur 20] 20 meq PO BID-W/MEALS 11/08/21 07/25/22 History Losartan Potassium [Cozaar] 100 mg PO DAILY 01/09/22 07/25/22 History Magnesium 300mg 300 mg PO DAILY 06/06/22 07/25/22 History glipiZIDE [Glucotrol] 5 mg PO W/SUPPER 06/06/22 07/25/22 History Apixaban [Eliquis] 5 mg PO BID tab 06/11/22 07/25/22 Rx Allergies Allergy/AdvReac Type Severity Reaction Status Date / Time pregabalin [From Lyrica] Allergy Unknown Unknown Verified 07/25/22 00:32 acetylcysteine Allergy Swelling Verified 07/25/22 00:32 hydromorphone HCl AdvReac headache Verified 07/25/22 00:32 [From Dilaudid] BERRIES Allergy Anaphylaxis Uncoded 07/25/22 00:32 Physical Exam Vitals: Vital Signs Temp Pulse Resp BP Pulse Ox 07/25/22 05:39 97.4 F L 72 18 136/66 96 07/25/22 01:51 98.8 F 87 18 119/74 99 07/25/22 00:28 98.5 F 72 18 144/95 98 Intake and Output 07/24/22 07/25/22 07/25/22 22:59 06:59 14:59 Other: Weight 104.326 kg Results 07/25/22 00:50 07/25/22 00:50 Cardiac Enzymes 07/25/22 07/25/22 07/25/22 Range/Units 00:50 05:22 08:45 Troponin I 0.024 <0.012 <0.012 (0.000-0.034) ng/mL Coagulation 07/25/22 Range/Units 00:50 PT 10.9 (9.0-12.0) sec APTT 26.9 (22.0-30.0) sec CBC 07/25/22 Range/Units 00:50 WBC 10.7 H (3.8-10.6) k/uL RBC 5.35 (3.80-5.40) m/uL Hgb 16.2 H (11.4-16.0) gm/dL Hct 47.6 H (34.0-46.0) % Plt Count 231 (150-450) k/uL Comprehensive Metabolic Panel 07/25/22 Range/Units 00:50 Sodium 140 (137-145) mmol/L Potassium 4.1 (3.5-5.1) mmol/L Chloride 103 (98-107) mmol/L Carbon Dioxide 25 (22-30) mmol/L BUN 23 H (7-17) mg/dL Creatinine 0.96 (0.52-1.04) mg/dL Glucose 107 H (74-99) mg/dL Calcium 9.7 (8.4-10.2) mg/dL Current Medications Generic Name Dose Route Start Last Admin Trade Name Freq PRN Reason Stop Dose Admin Apixaban 5 mg 07/25/22 09:45 Apixaban 5 Mg Tab PO BID [facility] Protocol Aspirin 81 mg 07/26/22 09:00 Aspirin 325 Mg Tab PO DAILY [facility] Furosemide 40 mg 07/25/22 17:30 Furosemide 40 Mg Tab PO BID-W/MEALS [facility] Nitroglycerin 1 inch 07/25/22 03:00 07/25/22 08:58 Nitroglycerin Oint 1 Inch/Gm Packet TOPICAL 1 inch Q6H [facility] Administration Non-Formulary Medication 25 mg 07/25/22 09:45 Carvedilol [Coreg] PO BID-W/MEALS ARLINE Non-Formulary Medication 100 mg 07/25/22 09:45 Losartan Potassium [Cozaar] PO DAILY ARLINE Non-Formulary Medication 10 mg 07/25/22 21:00 Simvastatin PO HS ARLINE Potassium Chloride 20 meq 07/25/22 17:30 Potassium Chloride Er 20 Meq Tab.Er PO BID-W/MEALS ARLINE Intake and Output 07/24/22 07/25/22 07/25/22 22:59 06:59 14:59 Other: Weight 104.326 kg 07/25/22 00:50 07/25/22 00:50
[2022-07-25 11:38] VITALS: BP 122/75; PULSE 77
[2022-07-25] MEDS ORDERED: POTASSIUM CHLORIDE ER 20 MEQ TAB.ER PO SCH (17:30)
[2022-07-25] MEDS ORDERED: FUROSEMIDE 40 MG TAB PO SCH (17:30)
[2022-07-25] MEDS ORDERED: ATORVASTATIN 10 MG TAB PO SCH (21:00)
--- NOTE | 2022-07-25 22:51 | HP ---
HISTORY AND PHYSICAL This is a combined history and physical and discharge summary. CHIEF COMPLAINT: Chest pain. HISTORY OF PRESENT ILLNESS: This 46-year-old woman with a past medical history of multiple medical problems including COPD, atrial fibrillation, was recently admitted to [facility]. The patient had cardiac catheterization, which showed minimal nonobstructive coronary artery disease. The patient was admitted with significant chest pain, which was felt across the chest, pain in the back also. The patient came to the emergency room. Troponins are negative. Cardiology is following the patient. Recommend outpatient followup. There is no history of any fever, rigors, or chills. PAST MEDICAL HISTORY: Atrial fibrillation, COPD. Rest of the medical issues reviewed. HOME MEDICATIONS: Reviewed. Again, Zocor, dose and rest of medications noted. ALLERGIES: Reviewed. Lyrica. FAMILY HISTORY: Reviewed include atrial fibrillation. SOCIAL HISTORY: History of smoking. REVIEW OF SYSTEMS: A 14-point review of systems is negative except as mentioned earlier. PHYSICAL EXAMINATION: VITAL SIGNS: Pulse 72, blood pressure 130/60, respirations 18. NECK: No jugular venous distention. CARDIOVASCULAR: S1, S2 muffled. RESPIRATIONS: Breath sounds diminished at the bases. No rhonchi. No crackles. ABDOMEN: Soft, nontender. No mass palpable. LEGS: No edema. No cyanosis. NERVOUS SYSTEM: No focal deficits. LABS: WBC 10.7. Other labs are reviewed. ASSESSMENT: 1. Chest pain, possibly nonspecific, possible unstable angina. 2. History of recent cardiac catheterization and mild nonobstructive coronary artery disease. 3. Atrial fibrillation. 4. Chronic obstructive pulmonary disease. 5. Multiple medical issues. RECOMMENDATIONS AND DISCUSSION: This 46-year-old woman presented with multiple medical issues. At this time, the patient has improved significantly. The patient is asymptomatic. Cardiology saw the patient and cleared the patient for discharge. Recommend to resume the home medications and stop smoking. The patient has an element of noncompliance also. Recommend close followup with Primary Physician and Cardiology. Please refer to the discharge reconciliation sheet for list of medications. MMODL / IJN: [id number] /
[2022-07-26] MEDS ORDERED: ASPIRIN 81 MG PO SCH (09:00)
[2022-07-26] MEDS ORDERED: ASPIRIN 325 MG TAB PO SCH (09:00)
== END 2022-07-25 12:21 | disposition home or self-care (01) ==
LOC: EC 00:22 → 3SCARD 02:40 → 6NMEDSUR 06:24
PROVIDERS: ADMIT Hospitalist; ATTEND Hospitalist
DX: R07.89 Other chest pain (principal); I25.10 Atherosclerotic heart disease of native coronary artery without angina pectoris; I44.7 Left bundle-branch block, unspecified; I11.0 Hypertensive heart disease with heart failure; I50.9 Heart failure, unspecified; J44.9 Chronic obstructive pulmonary disease, unspecified; K21.9 Gastro-esophageal reflux disease without esophagitis; E78.5 Hyperlipidemia, unspecified; G40.909 Epilepsy, unspecified, not intractable, without status epilepticus; G62.9 Polyneuropathy, unspecified; G47.30 Sleep apnea, unspecified; F17.210 Nicotine dependence, cigarettes, uncomplicated; I42.8 Other cardiomyopathies; F12.90 Cannabis use, unspecified, uncomplicated; I48.0 Paroxysmal atrial fibrillation; Z79.899 Other long term (current) drug therapy; Z79.84 Long term (current) use of oral hypoglycemic drugs; Z79.01 Long term (current) use of anticoagulants; Z87.442 Personal history of urinary calculi; Z86.16 Personal history of COVID-19; Z90.49 Acquired absence of other specified parts of digestive tract; Z83.3 Family history of diabetes mellitus; Z82.49 Family history of ischemic heart disease and other diseases of the circulatory system; Z80.0 Family history of malignant neoplasm of digestive organs; Z80.1 Family history of malignant neoplasm of trachea, bronchus and lung; Z91.199 Patient's noncompliance with other medical treatment and regimen due to unspecified reason; Z20.822 Contact with and (suspected) exposure to COVID-19
CPT/HCPCS: 96374; 99285; 36415; 93005; 80048; 84484; 85025; 85610; 85730; 87636; 71046; G0378 ×2; J2405

== ENCOUNTER 2022-08-22 07:26 | Day surgery (SDC) | payer OTHER ==
[2022-08-20 09:35] VITALS: BMI 43.4
[~2022-08-22 07:26] MED LIST changes: +LACTATED RINGERS 1,000 ML IV SCH; -LIDOCAINE 1% (10MG/ML) FOR IV START INTRADERMA PRN; -ONDANSETRON 4 MG/2 ML VIAL IVP ONE; -fentaNYL (PF) 50 MCG/ML 2 ML AMP IV PRN
[2022-08-22 08:02] VITALS: TEMP 97.6
[2022-08-22 08:03] LABS: Glucose,Whole Blood 107 mg/dL (70-110)
[2022-08-22] MEDS ORDERED: LIDOCAINE 2% INJ 20 MG/ML (2 ML VIAL) ONE (08:07)
[2022-08-22] MEDS ORDERED: PROPOFOL 10 MG/ML 20 ML VIAL IV ONE (08:07)
--- NOTE | 2022-08-22 08:21 | P.OP ---
Date of Procedure: 08/22/22 Preoperative Diagnosis: Peptic ulcer disease Postoperative Diagnosis: Antral gastritis Sliding hiatal hernia Mild esophagitis Procedure(s) Performed: EGD Anesthesia: MAC Surgeon: Berny Barclay Pathology: other (Antrum, esophagus) Condition: stable Disposition: PACU Description of Procedure: The patient's placed on the endoscopy table in the lateral position. She received IV sedation. The gastroscope was placed oropharynx passed in the esophagus into the stomach. Scope was then placed through the pylorus. The first and second portion of the duodenum appeared normal. Scope was then brought back the antrum and this appeared mildly inflamed. A biopsies performed. The scope was then retroflexed and the remainder of the stomach appeared normal. There was a small sliding hiatal hernia. The GE junction was at 38 cm. The distal esophagus appeared inflamed and a biopsies performed. The proximal esophagus appeared normal. Scope withdrawn for patient.
--- NOTE | 2022-08-22 08:22 | P.GSHP ---
History of Present Illness H&P Date: 08/22/22 Chief Complaint: Peptic ulcer disease This a 46-year-old female who presents today for EGD. She's had complete epigastric pain and GERD. Past Medical History Past Medical History: Atrial Fibrillation, Heart Failure, COPD, GERD/Reflux, Hyperlipidemia, Hypertension, Pneumonia, Seizure Disorder, Sleep Apnea/CPAP/BIPAP Additional Past Medical History / Comment(s): Hx multiple kidney stones. Hx Pneumonia, vented-2011. Peptic ulcers. Sleep apnea-no device use. Bilateral Occipital Neuritis, headaches, vertigo. Neuropathy and edema bilateral lower legs, "legs give out at times". "Daily convulsions, I get numb, fall asleep, and shake, but I'm aware of my surroundings". Hx diverticulitis, colon polyps and hemmorhoids. +Covid 11/08/21, mild symptoms, antibody treatment. Patient on Glipizide, but states not a Diabetic. History of Any Multi-Drug Resistant Organisms: None Reported Past Surgical History: Cholecystectomy, Heart Catheterization, Hernia Repair Additional Past Surgical History / Comment(s): Brain surgery in 2012 for seizures and headaches, right ovary/tube removed, D&C, Picc Line insertion and removal, kidney stone surgically removed, cystoscopy with ureteral stent, lithotripsy, Laproscopic Cristy Fundoplasty, colonoscopy. Past Anesthesia/Blood Transfusion Reactions: No Reported Reaction, Motion Sickness Additional Past Anesthesia/Blood Transfusion Reaction / Comment(s): "Pulmonary edema during kidney surgery, was in induced coma for 3 days". Past Psychological History: Anxiety Additional Psychological History / Comment(s): Anxiety due to this procedure. Smoking Status: Current every day smoker Past Alcohol Use History: None Reported Additional Past Alcohol Use History / Comment(s): Current smoker, 2 ppd, since 1979. Past Drug Use History: Marijuana Additional Drug Use History / Comment(s): Marijuana, 3 or more joints daily. Aware no use 24 hrs prior to procedure. - Past Family History Father Family Medical History: AFIB, Diabetes Mellitus, Hypertension Additional Family Medical History / Comment(s): Pacemaker. Mother Family Medical History: Cancer Additional Family Medical History / Comment(s): of pancreatic cancer at the age of 58yrs. Maternal cousin had pancreatic cancer. Maternal uncle had lung cancer. Sister(s) Family Medical History: AICD/Pacemaker Additional Family Medical History / Comment(s): the patient has one sister with AICD. Second sister has no major medical problems. Patient's 1 brother that is healthy. Patient has one son and one daughter with no major medical problems. Medications and Allergies Home Medications Medication Instructions Recorded Confirmed Type Fluticasone Propion/Salmeterol 1 puff INHALATION BID 09/06/21 08/22/22 History [Advair 500-50 Diskus] Rizatriptan Benzoate [Rizatriptan] 10 mg PO BID PRN 09/06/21 08/22/22 History Simvastatin [Zocor] 10 mg PO HS 09/06/21 08/22/22 History Aspirin EC [Ecotrin Low Dose] 81 mg PO W/SUPPER 10/11/21 08/22/22 History carvediloL [Coreg] 25 mg PO BID-W/MEALS 10/11/21 08/22/22 History Albuterol Inhaler [Ventolin Hfa 1 puff INHALATION Q6H PRN 11/08/21 08/22/22 History Inhaler] Furosemide [Lasix] 40 mg PO BID-W/MEALS 11/08/21 08/22/22 History Potassium Chloride ER [K-Dur 20] 20 meq PO BID-W/MEALS 11/08/21 08/22/22 History Losartan Potassium [Cozaar] 100 mg PO QAM 01/09/22 08/22/22 History Magnesium 300mg 300 mg PO DAILY 06/06/22 08/22/22 History glipiZIDE [Glucotrol] 5 mg PO W/SUPPER 06/06/22 08/22/22 History Apixaban [Eliquis] 5 mg PO BID tab 06/11/22 08/22/22 Rx Nitroglycerin 0.4 mg SL Q5M PRN 08/20/22 08/22/22 History Allergies Allergy/AdvReac Type Severity Reaction Status Date / Time pregabalin [From Lyrica] Allergy Unknown Unknown Verified 08/22/22 07:45 acetylcysteine Allergy Swelling Verified 08/22/22 07:45 hydromorphone HCl AdvReac headache Verified 08/22/22 07:45 [From Dilaudid] BERRIES Allergy Anaphylaxis Uncoded 08/22/22 07:45 Surgical - Exam Vital Signs Temp Pulse Resp BP Pulse Ox 97.6 F 85 18 164/97 95 08/22/22 07:50 08/22/22 07:50 08/22/22 07:50 08/22/22 07:50 08/22/22 07:50 - General well developed, well nourished, no distress - Eyes PERRL - ENT normal pinna - Neck no masses - Respiratory normal expansion - Cardiovascular Rhythm: regular - Abdomen Abdomen: soft, non tender Assessment and Plan Assessment: Epigastric pain, GERD. We'll perform EGD evaluate for possible peptic ulcer disease
[2022-08-22 08:33] VITALS: RESP 16
[2022-08-22 08:45] VITALS: BP 153/91; PULSE 85
== END 2022-08-22 09:30 | disposition home or self-care (01) ==
LOC: ORWHC2ENDO 07:26
PROVIDERS: ATTEND Surgery
DX: K29.50 Unspecified chronic gastritis without bleeding (principal); K21.00 Gastro-esophageal reflux disease with esophagitis, without bleeding; K44.9 Diaphragmatic hernia without obstruction or gangrene; K27.9 Peptic ulcer, site unspecified, unspecified as acute or chronic, without hemorrhage or perforation; F17.210 Nicotine dependence, cigarettes, uncomplicated; E78.5 Hyperlipidemia, unspecified; G40.909 Epilepsy, unspecified, not intractable, without status epilepticus; G47.30 Sleep apnea, unspecified; I11.0 Hypertensive heart disease with heart failure; I50.9 Heart failure, unspecified; I48.91 Unspecified atrial fibrillation; J44.9 Chronic obstructive pulmonary disease, unspecified; Z79.01 Long term (current) use of anticoagulants; Z79.51 Long term (current) use of inhaled steroids; Z79.84 Long term (current) use of oral hypoglycemic drugs
CPT/HCPCS: 81025; 88305; 43239; J2704; J2001

== ENCOUNTER → 2022-09-19 | Outpatient (CLI) | payer OTHER ==
[2022-09-19 10:34] LABS: Basophils # (A) 0.04 X 10*3/uL (0.00-0.10); Basophils % (A) 0.4 %; Eosinophils # (A) 0.35 X 10*3/uL (0.04-0.35); Eosinophils % (A) 3.7 %; HCT 43.5 % (37.2-46.3); HGB 14.5 g/dL (12.0-15.0); Immature Grans, Automated 0.2 %; Lymphocytes # (A) 2.71 X 10*3/uL (0.90-5.00); Lymphocytes % (A) 28.3 %; MCH 30.3 pg (27.0-32.0); MCHC 33.3 g/dL (32.0-37.0); Mean Platelet Volume 10.3 fL (9.5-12.2); Monocytes # (A) 0.67 X 10*3/uL (0.20-1.00); NRBC Per 100 WBC 0 /100 WBCS (0.0-0.0); Neutrophils # (A) 5.79 X 10*3/uL (1.80-7.70); Neutrophils % (A) 60.4 %; Platelet Count 232 X 10*3/uL (140-440); RBC 4.78 X 10*6/uL (4.10-5.20); RDW 14.1 % (11.5-14.5); WBC 9.58 X 10*3/uL (4.50-10.00)
[2022-09-19 10:40] LABS: Anion Gap 9.4 mmol/L (10.00-18.00); Carbon Dioxide 24.6 mmol/L (20.0-27.5); Potassium 4.1 mmol/L (3.5-5.5)
== END | disposition home or self-care (01) ==
LOC: LABPAT 07:22
PROVIDERS: ATTEND Surgery
DX: Z01.812 Encounter for preprocedural laboratory examination (principal); K21.00 Gastro-esophageal reflux disease with esophagitis, without bleeding; Z79.899 Other long term (current) drug therapy
CPT/HCPCS: 36415; 80051; 85025

== ENCOUNTER 2022-09-23 06:42 | Day surgery (SDC) | payer OTHER ==
[~2022-09-23 06:42] MED LIST changes: +ACETAMINOPHEN TAB 500 MG TAB PO PRN; +DEXAMETHASONE SOD PHOSPHATE 4 MG/ML 1 ML VIAL IV ONE; +HEPARIN SODIUM,PORCINE/PF 5,000 UNIT/0.5 ML SYRINGE SQ PRN; +LIDOCAINE 1% (10MG/ML) FOR IV START INTRADERMA PRN; +MORPHINE SULFATE 2 MG/ML SYRINGE IV PRN; +ONDANSETRON 4 MG/2 ML VIAL IVP ONE; +SCOPOLAMINE 1 MG/72 HR PATCH TRANSDERM ONE
[2022-09-23] MEDS ORDERED: BUPIVACAIN-EPI 0.25%-1:200,000 30 ML VIAL SQ ONE (07:25)
[2022-09-23] MEDS ORDERED: MIDAZOLAM 2 MG/2 ML VIAL ONE (07:41)
[2022-09-23] MEDS ORDERED: LABETALOL 5 MG/ML VIAL MDV ONE (07:41)
[2022-09-23] MEDS ORDERED: PROPOFOL 10 MG/ML 20 ML VIAL IV ONE (07:41)
[2022-09-23] MEDS ORDERED: LIDOCAINE 2% INJ 20 MG/ML (2 ML VIAL) ONE (07:41)
[2022-09-23] MEDS ORDERED: METOPROLOL TARTRATE 5 MG/5 ML VIAL IVP ONE (07:41)
[2022-09-23] MEDS ORDERED: SUCCINYLCHOLINE CHLORIDE 200 MG/10 ML VIAL IV ONE (07:41)
[2022-09-23 07:46] LABS: Glucose,Whole Blood 110 mg/dL (70-110)
--- NOTE | 2022-09-23 08:06 | P.GSHP ---
History of Present Illness H&P Date: 09/23/22 Chief Complaint: GERD, dysphagia, recurrent hiatal hernia Is a 47-year-old female is developed a recurrent hiatal hernia. Patient has complaints of GERD and dysphagia. She presents today for laparoscopic repair. Past Medical History Past Medical History: Atrial Fibrillation, Heart Failure, COPD, GERD/Reflux, Hyperlipidemia, Hypertension, Pneumonia, Seizure Disorder, Sleep Apnea/CPAP/BIPAP Additional Past Medical History / Comment(s): Hx multiple kidney stones. Hx Pneumonia, vented-2011. Peptic ulcers. Sleep apnea-no device use. Bilateral Occipital Neuritis, headaches, vertigo. Neuropathy and edema bilateral lower legs, "legs give out at times". had brain surg. for convulsions 2012, still has "mini seizures daily", Hx diverticulitis, colon polyps and hemorrhoids. +Covid 11/08/21, mild symptoms, antibody treatment. CTS enrique History of Any Multi-Drug Resistant Organisms: None Reported Past Surgical History: Cholecystectomy, Heart Catheterization, Hernia Repair Additional Past Surgical History / Comment(s): Brain surgery in 2012 for seizures and headaches, right ovary/tube removed, D&C, Picc Line insertion and removal, kidney stone surgically removed, cystoscopy with ureteral stent, lithotripsy, Laproscopic Cristy Fundoplasty, colonoscopy, recent EGD Past Anesthesia/Blood Transfusion Reactions: No Reported Reaction, Motion Sickness Additional Past Anesthesia/Blood Transfusion Reaction / Comment(s): "Pulmonary edema during kidney surgery, was in induced coma for 3 days". Smoking Status: Current every day smoker - Past Family History Father Family Medical History: AFIB, Diabetes Mellitus, Hypertension Additional Family Medical History / Comment(s): Pacemaker. Mother Family Medical History: Cancer Additional Family Medical History / Comment(s): of pancreatic cancer at the age of 58yrs. Maternal cousin had pancreatic cancer. Maternal uncle had lung cancer. Sister(s) Family Medical History: AICD/Pacemaker Additional Family Medical History / Comment(s): the patient has one sister with AICD. Second sister has no major medical problems. Patient's 1 brother that is healthy. Patient has one son and one daughter with no major medical problems. Medications and Allergies Home Medications Medication Instructions Recorded Confirmed Type Fluticasone Propion/Salmeterol 1 puff INHALATION BID 09/06/21 09/18/22 History [Advair 500-50 Diskus] Rizatriptan Benzoate [Rizatriptan] 10 mg PO BID PRN 09/06/21 09/18/22 History Simvastatin [Zocor] 10 mg PO HS 09/06/21 09/18/22 History Aspirin EC [Ecotrin Low Dose] 81 mg PO W/SUPPER 10/11/21 09/18/22 History carvediloL [Coreg] 25 mg PO BID-W/MEALS 10/11/21 09/18/22 History Albuterol Inhaler [Ventolin Hfa 1 puff INHALATION Q6H PRN 11/08/21 09/18/22 History Inhaler] Furosemide [Lasix] 40 mg PO BID-W/MEALS 11/08/21 09/18/22 History Potassium Chloride ER [K-Dur 20] 20 meq PO BID-W/MEALS 11/08/21 09/18/22 History Losartan Potassium [Cozaar] 100 mg PO QAM 01/09/22 09/18/22 History Magnesium 300mg 300 mg PO DAILY 06/06/22 09/18/22 History Apixaban [Eliquis] 5 mg PO BID tab 06/11/22 09/18/22 Rx Nitroglycerin 0.4 mg SL Q5M PRN 08/20/22 09/18/22 History Allergies Allergy/AdvReac Type Severity Reaction Status Date / Time pregabalin [From Lyrica] Allergy Unknown Rash/Hives Verified 09/23/22 06:55 acetylcysteine Allergy Swelling Verified 09/23/22 06:55 hydromorphone HCl AdvReac headache Verified 09/23/22 06:55 [From Dilaudid] BERRIES Allergy Anaphylaxis Uncoded 09/23/22 06:55 Surgical - Exam Vital Signs Temp Pulse Resp BP Pulse Ox 98.3 F 84 16 202/128 98 09/23/22 07:00 09/23/22 07:00 09/23/22 07:00 09/23/22 07:00 09/23/22 07:00 - General well developed, no distress - Eyes PERRL - ENT normal pinna - Neck no masses - Respiratory normal expansion - Cardiovascular Rhythm: regular - Abdomen Abdomen: soft, non tender Assessment and Plan Assessment: GERD, dysphagia related to recurrent hiatal hernia. Patient will undergo laparoscopic repair of hiatal hernia.
[2022-09-23] MEDS ORDERED: NALOXONE 0.4 MG/ML 1 ML VIAL IV PRN (08:07)
[2022-09-23] MEDS ORDERED: LACTATED RINGERS 1,000 ML IV ONE ×3 (08:07→08:08)
--- NOTE | 2022-09-23 08:07 | P.PN ---
Progress Note - Text Progress Note Date: 09/23/22 The patient was intubated. Immediately after intubation patient became hypertensive. Anesthesia felt that her case should be canceled. The patient was extubated and sent to recovery room. She'll be admitted for workup of her hypertension.
[2022-09-23] MEDS ORDERED: KETOROLAC 15 MG/ML 1 ML VIAL IVP ONE (08:13)
[2022-09-23 08:28] VITALS: TEMP 97.2
[2022-09-23] MEDS ORDERED: ALBUTEROL NEBULIZED 2.5 MG/3 ML INHALATION ONE (08:48)
[2022-09-23 09:11] VITALS: RESP 16
[2022-09-23] MEDS ORDERED: LOSARTAN 25 MG TAB PO STA (09:26)
[2022-09-23] MEDS ORDERED: carvediloL 12.5 MG TAB PO STA (09:27)
[2022-09-23] MEDS ORDERED: LOSARTAN 50 MG TAB PO SCH (09:45)
--- NOTE | 2022-09-23 11:54 | XR ---
EXAMINATION TYPE: XR chest 2V DATE OF EXAM: 09/23/2022 COMPARISON: 07/25/2022 TECHNIQUE: PA and lateral views submitted. HISTORY: Shortness of breath FINDINGS: The lungs are clear and there is no pneumothorax, pleural effusion, or focal pneumonia. Heart is la rge and there is mild coarsening of interstitium. Hyperinflation of the lungs. IMPRESSION: 1. Marked cardiomegaly and mild central venous congestion in the differential diagnosis. Correlate fo r mild underlying COPD..
[2022-09-23 12:55] VITALS: BP 162/95; PULSE 74
--- NOTE | 2022-09-23 20:51 | CONS ---
CONSULTATION 47-year-old female who was admitted by Dr. Barclay for hernia surgery. Her blood pressure was high prior to surgery, but she was taken for surgery, underwent general anesthesia. Apparently, she had SVT and hypertensive response and she was extubated and the procedure was canceled. Cardiology was called to evaluate her from a cardiac standpoint for hypertension management. She is still pretty groggy, but she denies any chest discomfort. She looks comfortable but sleepy after her short general anesthesia. Her 12-lead EKG shows sinus mechanism with the left bundle branch block which is chronic and has been documented by her primary partition notcher, Dr. Reddy. Her blood pressure is elevated in the 170s, but she never took antihypertensive therapy this morning. PAST MEDICAL HISTORY: Nonobstructive CAD by coronary angiography a few months back, history of hypertension. She has a history of smoking and marijuana use. History of hypertension, dyslipidemia, type 2 diabetes, morbid obesity. PHYSICAL EXAMINATION: VITAL SIGNS: Her blood pressure is 176/89 mmHg. HEART: Sounds S1, S2 are regular. Breath sounds are clear. No respiratory distress. IMPRESSION: Uncontrolled hypertension. This morning, the patient did not take her antihypertensive therapy prior to surgery and her blood pressure was high in the OR. Apparently, she had SVT involved, but I do not have any EKG strips to confirm this. PLAN: Resume losartan. Resume carvedilol, resume all home medications and if her blood pressure is less than 150/70, then she may go home. Otherwise, she needs to be admitted for maximization of antihypertensive therapy. Thank you for the consultation. JOCEL / IJN: [id number] /
== END 2022-09-23 13:32 | disposition home or self-care (01) ==
LOC: OR 06:42
PROVIDERS: ATTEND Surgery
DX: Z53.9 Procedure and treatment not carried out, unspecified reason (principal); K21.9 Gastro-esophageal reflux disease without esophagitis; I48.91 Unspecified atrial fibrillation; I11.0 Hypertensive heart disease with heart failure; I50.9 Heart failure, unspecified; J44.9 Chronic obstructive pulmonary disease, unspecified; E78.5 Hyperlipidemia, unspecified; G40.909 Epilepsy, unspecified, not intractable, without status epilepticus; G47.33 Obstructive sleep apnea (adult) (pediatric); Z90.49 Acquired absence of other specified parts of digestive tract; Z95.5 Presence of coronary angioplasty implant and graft; Z99.89 Dependence on other enabling machines and devices; Z83.3 Family history of diabetes mellitus; Z82.49 Family history of ischemic heart disease and other diseases of the circulatory system; Z80.1 Family history of malignant neoplasm of trachea, bronchus and lung; Z79.51 Long term (current) use of inhaled steroids; Z79.899 Other long term (current) drug therapy; Z79.01 Long term (current) use of anticoagulants; Z88.8 Allergy status to other drugs, medicaments and biological substances
CPT/HCPCS: 71046; J2250; J0330; J1100; J2405; J1885; J2704; J1644; J2001

== ENCOUNTER 2022-10-07 06:36 | Inpatient (IN) | payer OTHER ==
[~2022-10-07 06:36] MED LIST changes: -DEXAMETHASONE SOD PHOSPHATE 4 MG/ML 1 ML VIAL IV ONE; -LACTATED RINGERS 1,000 ML IV SCH; -LIDOCAINE 1% (10MG/ML) FOR IV START INTRADERMA PRN; -MORPHINE SULFATE 2 MG/ML SYRINGE IV PRN; -ONDANSETRON 4 MG/2 ML VIAL IVP ONE; -SCOPOLAMINE 1 MG/72 HR PATCH TRANSDERM ONE
[2022-10-07] MEDS ORDERED: LACTATED RINGERS 1,000 ML IV SCH (06:54)
[2022-10-07] MEDS ORDERED: DEXAMETHASONE SOD PHOSPHATE 4 MG/ML 1 ML VIAL IV ONE (06:54)
[2022-10-07] MEDS ORDERED: MIDAZOLAM 2 MG/2 ML VIAL IV PRN (06:54)
[2022-10-07] MEDS ORDERED: LIDOCAINE 1% (10MG/ML) FOR IV START INTRADERMA PRN (06:54)
[2022-10-07] MEDS ORDERED: ONDANSETRON 4 MG/2 ML VIAL IVP ONE (06:54)
[2022-10-07] MEDS ORDERED: LACTATED RINGERS 1,000 ML IV ONE (07:04)
[2022-10-07 07:42] LABS: Glucose,Whole Blood 119 mg/dL (70-110)
[2022-10-07] MEDS ORDERED: PROPOFOL 10 MG/ML 20 ML VIAL IV ONE (07:42)
[2022-10-07] MEDS ORDERED: hydrALAZINE HCL 20 MG/ML 1 ML VIAL ONE (07:42)
[2022-10-07] MEDS ORDERED: fentaNYL (PF) 50 MCG/ML 2 ML AMP ONE (07:42)
[2022-10-07] MEDS ORDERED: LIDOCAINE 2% INJ 20 MG/ML (2 ML VIAL) ONE (07:42)
[2022-10-07] MEDS ORDERED: SUCCINYLCHOLINE CHLORIDE 200 MG/10 ML VIAL IV ONE (07:42)
[2022-10-07] MEDS ORDERED: GLYCOPYRROLATE 0.2 MG/ML 2 ML VIAL ONE (07:42)
[2022-10-07] MEDS ORDERED: NEOSTIGMINE 1 MG/ML 10 ML VIAL ONE (07:42)
[2022-10-07] MEDS ORDERED: SUGAMMADEX SODIUM 200 MG/2 ML SDV IV ONE (07:42)
[2022-10-07] MEDS ORDERED: ROCURONIUM 10 MG/ML (5 ML VIAL) IV ONE (07:42)
[2022-10-07] MEDS ORDERED: KETOROLAC 15 MG/ML 1 ML VIAL ONE (07:42)
[2022-10-07] MEDS ORDERED: MIDAZOLAM 2 MG/2 ML VIAL ONE (07:42)
[2022-10-07] MEDS ORDERED: BUPIVACAIN-EPI 0.25%-1:200,000 30 ML VIAL SQ ONE (08:12)
--- NOTE | 2022-10-07 08:57 | P.OP ---
Date of Procedure: 10/07/22 Preoperative Diagnosis: GERD Postoperative Diagnosis: GERD Procedure(s) Performed: Laparoscopic Cristy fundal plication Anesthesia: DOMINGA Surgeon: Berny Barclay Estimated Blood Loss (ml): 25 Pathology: none sent Condition: stable Disposition: PACU Description of Procedure: Meaghanhe patient was placed on the operating table in the supine position. The patient received general anesthesia. And was placed in dorsal lithotomy position. The patient was prepped and draped in the usual sterile fashion. The skin incision sites were anesthetized with 1% local Xylocaine. The skin was incised in the left periumbilical area and then using a blade less 5 mm trocar u nder direct visualization panel cavity was entered. After adequate insufflation the laparoscope was then placed into the peritoneal cavity. Next a 5 mm trochars placed in the right epigastric position. Another 5 millimeter trocar the right lateral position. Another 5 millimeter trocar in the left lateral position a 5 mm trocar is placed in the left epigastric position. And then the initial 5 mm trocar was exchanged for a 10 mm trocar. The left lateral lobe liver was retracted. The hernia was seen. The crural defect was then dissected using the Harmonic scissors device. A 360 crural dissection was performed the esophagus stomach was reduced back into the peritoneal Cavity. The crural defect was then closed using 2-0 Ethibond suture. Next the fundus of the stomach was mobilized using the Delta scissors device. and then a 58-Maltese bougie dilator was placed oropharynx passed into the esophagus and stomach the fundal plication wrap was then performed by grasping the fundus posteriorly and bringing it around the esophagus and stomach fundoplication was then performed using 2-0 Ethibond suture. Care was taken that the fundal location rested over top of the intra-abdominal esophagus. There was no injury seen to the stomach or esophagus. The dilator was then withdrawn. The abdomen was irrigated there is no bleeding seen. The trochars were then withdrawn and then skin incision sites were closed using 3-0 Monocryl suture Steri-Strips are applied. Patient thought procedure well and sent to recovery room in stable condition.
[2022-10-07] MEDS ORDERED: HYDROmorphone 1 MG/ML 1 ML SYRINGE IVP PRN (08:58)
[2022-10-07] MEDS ORDERED: IPRATROPIUM-ALBUTEROL 3 ML NEB INHALATION STA (09:16)
[2022-10-07] MEDS ORDERED: hydrALAZINE HCL 20 MG/ML 1 ML VIAL IVP ONE (09:43)
--- NOTE | 2022-10-07 09:57 | XR ---
EXAMINATION TYPE: XR chest 1V portable DATE OF EXAM: 10/07/2022 COMPARISON: 09/23/2022 HISTORY: ET tube placement TECHNIQUE: Single frontal view of the chest is obtained. FINDINGS: ET tube approximately 5 cm above alfonso. There is diffuse interstitial pattern. Heart size normal. Minimal pleural fluid suspected. No pneumothorax. No consolidative pneumonia. IMPRESSION: 1. ET tube 5 cm above alfonso. 2. Diffuse interstitial pattern correlate for interstitial pneumonitis. Venous congestion also in the differential diagnosis but lack of pleural fluid suggests infectious etiology may be more likely.
[2022-10-07] MEDS ORDERED: ALBUTEROL NEBULIZED 2.5 MG/3 ML INHALATION ONE (10:04)
[2022-10-07] MEDS ORDERED: methylPREDNISolone SOD SUCCI 125 MG/2 ML VIAL IVP ONE (10:11)
[2022-10-07] MEDS ORDERED: FUROSEMIDE 10 MG/ML 4 ML VIAL IV STA (11:30)
[2022-10-07] MEDS: FAMOTIDINE 20 MG/2 ML VIAL IV SCH ×2 (11:54→20:47)
[2022-10-07 12:25] LABS: Glucose,Whole Blood 193 mg/dL (70-110)
[2022-10-07] MEDS ORDERED: NALOXONE 0.4 MG/ML 1 ML VIAL IV PRN (12:50)
[2022-10-07 12:52] LABS: ABG Base Excess 1.8 mmol/L; ABG HCO3 27 mmol/L (21-25); ABG Oxygen Saturation 99.4 % (94-97); ABG PCO2 48 mmHg (35-45); ABG PH 7.36 (7.35-7.45); ABG PO2 128 mmHg (83-108); ABG TCO2 29 mmol/L (19-24); Allen Test Performed? Yes
--- NOTE | 2022-10-07 12:54 | P.CNPUL ---
History of Present Illness Consult date: 10/07/22 Requesting physician: Berny Barclay Reason for consult: other Chief complaint: Shortness of breath, pulmonary edema History of present illness: This is a 47-year-old female history of multiple medical problems including nonocclusive coronary artery disease, history of hypertension, atrial fibrillation, patient was scheduled to undergo a hernia surgery back on 09/23/22, however patient developed SVT and hypertension required canceling of the procedure, patient was seen by cardiology at that time, her cardiac medications were readjusted, patient was discharged home, and today she underwent Cristy's fundoplication. Postoperatively the patient was admitted the recovery room, she was extubated, however she developed pulmonary edema, she had to be reintubated, extubated again, and I was asked to see her in consultation. I saw the patient in the recovery room, clearly her chest x-ray showed evidence of pulmonary edema, recommended Lasix, patient is on BiPAP with IPAP of 14 and EPAP of 6, chest x-ray was reviewed, The patient on BiPAP, and I recommended transfer to the ICU. Cardiology consult was reinitiated. Patient is known to have history of nonischemic cardiomyopathy, ejection fraction is normally about 45% her rhythm was mostly sinus rhythm, and the patient was not in distress while on BiPAP. ABG on BiPAP is pending. Review of Systems CONSTITUTIONAL: Denies any recent significant weight loss or weight gain. EYES: Denies change in vision. EARS, NOSE, MOUTH, THROAT: Denies headaches, denies sore throat. CARDIOVASCULAR: Positive for chest pain, palpitations no syncopal episodes. RESPIRATORY: As noted in HPI. GASTROINTESTINAL: Denies change in appetite, denies abdominal pain GENITOURINARY: Denies hematuria, denies infections. MUSKULOSKELETAL: Denies pain, denies swelling. INTEGUMENTARY: Denies rash, denies eczema. NEUROLOGICAL: Denies recent memory loss, no recent seizure activity. PSYCHIATRIC: Denies anxiety, denies depression. HEMATOLOGIC/LYMPHATIC: Denies anemia, denies enlarged lymph nodes. Past Medical History Past Medical History: Atrial Fibrillation, Heart Failure, COPD, GERD/Reflux, Hyperlipidemia, Hypertension, Pneumonia, Seizure Disorder, Sleep Apnea/CPAP/BIPAP Additional Past Medical History / Comment(s): Hx multiple kidney stones. Hx Pneumonia, vented-2011. Peptic ulcers. Sleep apnea-no device use. Bilateral Occipital Neuritis, headaches, vertigo. Neuropathy and edema bilateral lower legs, "legs give out at times". had brain surg. for convulsions 2012, still has "mini seizures daily", Hx diverticulitis, colon polyps and hemorrhoids. +Covid 11/08/21, mild symptoms, antibody treatment. CTS enrique History of Any Multi-Drug Resistant Organisms: None Reported Past Surgical History: Cholecystectomy, Heart Catheterization, Hernia Repair Additional Past Surgical History / Comment(s): Brain surgery in 2012 for seizures and headaches, right ovary/tube removed, D&C, Picc Line insertion and removal, kidney stone surgically removed, cystoscopy with ureteral stent, lithotripsy, Laproscopic Cristy Fundoplasty, colonoscopy, recent EGD Past Anesthesia/Blood Transfusion Reactions: No Reported Reaction, Motion Sickness Additional Past Anesthesia/Blood Transfusion Reaction / Comment(s): "Pulmonary edema during kidney surgery, was in induced coma for 3 days". Smoking Status: Current every day smoker - Past Family History Father Family Medical History: AFIB, Diabetes Mellitus, Hypertension Additional Family Medical History / Comment(s): Pacemaker. Mother Family Medical History: Cancer Additional Family Medical History / Comment(s): of pancreatic cancer at the age of 58yrs. Maternal cousin had pancreatic cancer. Maternal uncle had lung cancer. Sister(s) Family Medical History: AICD/Pacemaker Additional Family Medical History / Comment(s): the patient has one sister with AICD. Second sister has no major medical problems. Patient's 1 brother that is healthy. Patient has one son and one daughter with no major medical problems. Medications and Allergies Home Medications Medication Instructions Recorded Confirmed Type Fluticasone Propion/Salmeterol 1 puff INHALATION BID 09/06/21 10/02/22 History [Advair 500-50 Diskus] Rizatriptan Benzoate [Rizatriptan] 10 mg PO BID PRN 09/06/21 10/02/22 History Simvastatin [Zocor] 10 mg PO HS 09/06/21 10/02/22 History Aspirin EC [Ecotrin Low Dose] 81 mg PO W/SUPPER 10/11/21 10/02/22 History carvediloL [Coreg] 25 mg PO BID-W/MEALS 10/11/21 10/02/22 History Albuterol Inhaler [Ventolin Hfa 1 puff INHALATION Q6H PRN 11/08/21 10/02/22 History Inhaler] Furosemide [Lasix] 40 mg PO DAILY 11/08/21 10/02/22 History Potassium Chloride ER [K-Dur 20] 20 meq PO DAILY PRN 11/08/21 10/02/22 History Losartan Potassium [Cozaar] 100 mg PO BID 01/09/22 10/02/22 History Magnesium 300mg 300 mg PO DAILY 06/06/22 10/02/22 History Apixaban [Eliquis] 5 mg PO BID tab 06/11/22 10/02/22 Rx Nitroglycerin 0.4 mg SL Q5M PRN 08/20/22 10/02/22 History Aspirin/Acetaminophen/Caffeine 1 each PO DAILY PRN 10/02/22 10/02/22 History [Excedrin Extra Strength Caplet] Allergies Allergy/AdvReac Type Severity Reaction Status Date / Time pregabalin [From Lyrica] Allergy Unknown Rash/Hives Verified 10/07/22 07:21 acetylcysteine Allergy Swelling Verified 10/07/22 07:21 hydromorphone HCl AdvReac headache Verified 10/07/22 07:21 [From Dilaudid] BERRIES Allergy Anaphylaxis Uncoded 10/07/22 07:21 Physical Exam Vitals: Vital Signs Temp Pulse Pulse Pulse Resp BP BP 10/07/22 12:18 97.5 F L 26 H 179/108 10/07/22 11:45 66 19 10/07/22 11:30 74 17 10/07/22 11:15 80 18 10/07/22 11:00 81 16 10/07/22 10:45 87 16 10/07/22 10:30 96 20 10/07/22 10:19 10/07/22 10:15 100 22 10/07/22 10:01 10/07/22 10:00 118 H 28 H 10/07/22 09:45 116 H 27 H 10/07/22 09:39 10/07/22 09:38 120 H 10/07/22 09:30 106 H 20 10/07/22 09:27 86 10/07/22 09:19 10/07/22 09:18 10/07/22 09:17 97.1 F L 85 20 10/07/22 07:13 97.3 F L 71 16 195/93 BP Pulse Ox FiO2 10/07/22 12:18 98 50 10/07/22 11:45 142/69 97 50 10/07/22 11:30 143/70 96 50 10/07/22 11:15 142/66 94 L 50 10/07/22 11:00 135/63 95 50 10/07/22 10:45 134/63 95 50 10/07/22 10:30 141/65 94 L 50 10/07/22 10:19 50 10/07/22 10:15 158/74 94 L 50 10/07/22 10:01 50 10/07/22 10:00 210/103 98 100 10/07/22 09:45 223/108 97 50 10/07/22 09:39 50 10/07/22 09:38 10/07/22 09:30 214/111 93 L 100 10/07/22 09:27 10/07/22 09:19 100 10/07/22 09:18 100 10/07/22 09:17 116/69 100 100 10/07/22 07:13 96 Intake and Output 10/06/22 10/07/22 10/07/22 22:59 06:59 14:59 Intake Total 1400 Output Total 25 Balance 1375 Intake: IV 1400 Output: Estimated Blood Loss 25 Other: Weight 103.6 kg GENERAL EXAM: Revealed 47-year-old female, obese, on BiPAP, seen in the recovery room. IPAP of 14 and EPAP of 6 FiO2 50% HEAD: Normocephalic. EENT: PERRLA, NC, nonicteric, neck masses no JVD. CHEST: No chest wall deformity. LUNGS: Minimal fine crackles at the bases. No rhonchi and no wheezes CVS: S1 and S2 normal with no audible murmur, regular rhythm. ABDOMEN: No hepatosplenomegaly, normal bowel sounds, no guarding or rigidity. SPINE: No scoliosis or deformity SKIN: No rashes CENTRAL NERVOUS SYSTEM: Alert and oriented 3 focal deficit EXTREMITIES: No clubbing edema or cyanosis psychiatric: Normal mood affect and normal mental status examination Results - Laboratory Findings Abnormal lab findings: Abnormal Labs 10/07/22 10/07/22 07:40 12:23 POC Glucose (mg/dL) 119 H 193 H - Diagnostic Findings Chest x-ray: image reviewed (As noted in HPI chest x-ray is consistent with pulmonary edema) Assessment and Plan Assessment: Impression: Status post Cristy fundoplication, postoperative day #0 Acute hypoxic respiratory failure secondary to pulmonary edema Acute systolic congestive heart failure paroxysmal atrial fibrillation Obesity. History of underlying COPD. History of obstructive sleep apnea syndrome. History of GERD malformation requiring craniotomy in 2012. Benign essential hypertension Type 2 diabetes Diabetic neuropathy Dyslipidemia Recommendation: Continue on BiPAP. Transfer patient to ICU Start Lasix 40 mg IV push 1 now Resume home meds including her cardiac meds Continue bronchodilators. GI and DVT prophylaxis. Cardiology to see on consultation. We will continue to follow while in the ICU. Time with Patient: Greater than 30
[2022-10-07] MEDS: D5-0.45% NACL WITH KCL 20MEQ/L 1,000 ML IV SCH ×2 (13:35→22:42)
[2022-10-07] MEDS: METOCLOPRAMIDE 5 MG/ML 2 ML VIAL IVP SCH ×2 (13:35→19:00)
[2022-10-07] MEDS: ONDANSETRON 4 MG/2 ML VIAL IVP PRN (16:58)
[2022-10-07] MEDS: MORPHINE SULFATE 4 MG/ML SYRINGE IVP PRN ×2 (17:02→20:57)
[2022-10-08] MEDS: METOCLOPRAMIDE 5 MG/ML 2 ML VIAL IVP SCH ×4 (01:00→17:27)
[2022-10-08 06:08] LABS: Basophils % (A) 0 %; Eosinophils % (A) 0 %; HCT 43.1 % (34.0-46.0); HGB 14.1 gm/dL (11.4-16.0); Lymphocytes % (A) 10 %; MCHC 32.8 g/dL (31.0-37.0); MCV 91.7 fL (80.0-100.0); Mean Platelet Volume 8.6; Monocytes # (A) 0.5 k/uL (0-1.0); Monocytes % (A) 5 %; Neutrophils # (A) 8.3 k/uL (1.3-7.7); Neutrophils % (A) 84 %; Platelet Count 236 k/uL (150-450); RDW 13.4 % (11.5-15.5); WBC 9.9 k/uL (3.8-10.6)
[2022-10-08 06:29] LABS: African American GFR (CKD) >90 (>60 ml/min/1.73 sqM); Anion Gap 4 mmol/L; Blood Urea Nitrogen 15 mg/dL (7-17); Calcium 8.8 mg/dL (8.4-10.2); Carbon Dioxide 27 mmol/L (22-30); Chloride 105 mmol/L (98-107); Glucose 141 mg/dL (74-99); Non-African American GFR(CKD) >90 (>60 ml/min/1.73 sqM); Potassium 4.8 mmol/L (3.5-5.1); Sodium 136 mmol/L (137-145)
--- NOTE | 2022-10-08 07:17 | P.CRDCN ---
History of Present Illness History of present illness: HISTORY OF PRESENTING ILLNESS Patient is a pleasant 46-year-old female with history of hypertension, left bundle branch block, nonischemic cardiomyopathy, mild nonobstructive CAD, COPD, tobacco abuse, paroxysmal atrial fibrillation, hyperlipidemia. She follows with Dr. Mendoza. She did have recent workup with heart catheterization May 2022 with FFR of LAD 60% lesion which was normal. She presented for elective hiatal hernia repair 10/07 which was uneventful however postoperatively upon next a patient she had flash pulmonary edema requiring BiPAP and then reintubation. Her blood pressure is extremely elevated 220s over 110s. She was given Lasix with good urine output. She was eventually weaned from the BiPAP and her blood pressure better controlled in the 130s to 140s systolic. She currently is on 4 L nasal cannula. She denies any chest pain however does have pain throughout her throat which is worse with any swallowing or hiccups. REVIEW OF SYSTEMS At the time of my exam: CONSTITUTIONAL: Denies fever or chills. CARDIOVASCULAR: +chest pain, +shortness of breath, orthopnea, PND or palpitations. RESPIRATORY: Denies cough. GASTROINTESTINAL: Denies abdominal pain, diarrhea, constipation, nausea or vomiting. MUSCULOSKELETAL: Denies myalgias. NEUROLOGIC: Denies numbness, tingling or weakness. ENDOCRINE: Denies fatigue, weight change, polydipsia or polyurina. GENITOURINARY: Denies burning, hematuria or urgency with micturation. HEMATOLOGIC: Denies history of anemia or bleeding. PHYSICAL EXAMINATION Vital signs reviewed. CONSTITUTIONAL: No apparent distress. HEENT: Head is normocephalic. Pupils are equal, round. Sclerae anicteric. Mucous membranes of the mouth are moist. No JVD. No carotid bruit. CHEST EXAMINATION: Lungs are clear to auscultation. No chest wall tenderness is noted on palpation or with deep breathing. HEART EXAMINATION: Regular rate and rhythm. S1, S2 heard. No murmurs, gallops or rub. ABDOMEN: Soft, nontender. Positive bowel sounds. EXTREMITIES: 2+ peripheral pulses, no lower extremity edema and no calf tenderness. NEUROLOGIC EXAMINATION: Patient is awake, alert and oriented x3. ASSESSMENT 1. Acute on chronic diastolic heart failure, EF 50-55% 02/08 likely exacerbated by extreme hypertension. Possibility of negative pressure pulmonary edema post extubation 2. Paroxysmal atrial fibrillation, currently sinus rhythm 3. Hypertension 4. Status post hiatal hernia repair 10/07 5. Coronary artery disease, 60% LAD stenosis catheterization 05/2022 FFR negative 6. Left bundle-branch block 7. History of nonischemic cardiomyopathy, EF improved to 50-55% by most recent echo 01/2022 PLAN Patient appears nearly euvolemic and appears likely more related to significant hypertension and possible negative pressure pulmonary edema. Appears to be decreasing on oxygen demands. Continue to monitor and continue with home medica tions. Past Medical History Past Medical History: Atrial Fibrillation, Heart Failure, COPD, GERD/Reflux, Hyperlipidemia, Hypertension, Pneumonia, Seizure Disorder, Sleep Apnea/CPAP/BIPAP Additional Past Medical History / Comment(s): Hx multiple kidney stones. Hx Pneumonia, vented-2011. Peptic ulcers. Sleep apnea-no device use. Bilateral Occipital Neuritis, headaches, vertigo. Neuropathy and edema bilateral lower legs, "legs give out at times". had brain surg. for convulsions 2012, still has "mini seizures daily", Hx diverticulitis, colon polyps and hemorrhoids. +Covid 11/08/21, mild symptoms, antibody treatment. CTS enrique History of Any Multi-Drug Resistant Organisms: None Reported Past Surgical History: Cholecystectomy, Heart Catheterization, Hernia Repair Additional Past Surgical History / Comment(s): Brain surgery in 2012 for seizures and headaches, right ovary/tube removed, D&C, Picc Line insertion and removal, kidney stone surgically removed, cystoscopy with ureteral stent, lithotripsy, Laproscopic Cristy Fundoplasty, colonoscopy, recent EGD Past Anesthesia/Blood Transfusion Reactions: No Reported Reaction, Motion Sickness Additional Past Anesthesia/Blood Transfusion Reaction / Comment(s): "Pulmonary edema during kidney surgery, was in induced coma for 3 days". Smoking Status: Current every day smoker - Past Family History Father Family Medical History: AFIB, Diabetes Mellitus, Hypertension Additional Family Medical History / Comment(s): Pacemaker. Mother Family Medical History: Cancer Additional Family Medical History / Comment(s): of pancreatic cancer at the age of 58yrs. Maternal cousin had pancreatic cancer. Maternal uncle had lung cancer. Sister(s) Family Medical History: AICD/Pacemaker Additional Family Medical History / Comment(s): the patient has one sister with AICD. Second sister has no major medical problems. Patient's 1 brother that is healthy. Patient has one son and one daughter with no major medical problems. Medications and Allergies Home Medications Medication Instructions Recorded Confirmed Type Fluticasone Propion/Salmeterol 1 puff INHALATION BID 09/06/21 10/02/22 History [Advair 500-50 Diskus] Rizatriptan Benzoate [Rizatriptan] 10 mg PO BID PRN 09/06/21 10/02/22 History Simvastatin [Zocor] 10 mg PO HS 09/06/21 10/02/22 History Aspirin EC [Ecotrin Low Dose] 81 mg PO W/SUPPER 10/11/21 10/02/22 History carvediloL [Coreg] 25 mg PO BID-W/MEALS 10/11/21 10/02/22 History Albuterol Inhaler [Ventolin Hfa 1 puff INHALATION Q6H PRN 11/08/21 10/02/22 History Inhaler] Furosemide [Lasix] 40 mg PO DAILY 11/08/21 10/02/22 History Potassium Chloride ER [K-Dur 20] 20 meq PO DAILY PRN 11/08/21 10/02/22 History Losartan Potassium [Cozaar] 100 mg PO BID 01/09/22 10/02/22 History Magnesium 300mg 300 mg PO DAILY 06/06/22 10/02/22 History Apixaban [Eliquis] 5 mg PO BID tab 06/11/22 10/02/22 Rx Nitroglycerin 0.4 mg SL Q5M PRN 08/20/22 10/02/22 History Aspirin/Acetaminophen/Caffeine 1 each PO DAILY PRN 10/02/22 10/02/22 History [Excedrin Extra Strength Caplet] Allergies Allergy/AdvReac Type Severity Reaction Status Date / Time pregabalin [From Lyrica] Allergy Unknown Rash/Hives Verified 10/07/22 07:21 acetylcysteine Allergy Swelling Verified 10/07/22 07:21 hydromorphone HCl AdvReac headache Verified 10/07/22 07:21 [From Dilaudid] BERRIES Allergy Anaphylaxis Uncoded 10/07/22 07:21 Physical Exam Vitals: Vital Signs Temp Pulse Pulse Pulse Resp BP BP 10/08/22 06:00 30 H 140/76 10/08/22 05:00 55 L 11 L 140/76 10/08/22 04:00 97.9 F 53 L 11 L 140/76 10/08/22 03:00 59 L 12 140/76 10/08/22 02:00 58 L 11 L 10/08/22 01:00 57 L 11 L 10/08/22 00:00 98.3 F 76 11 L 144/65 10/07/22 23:05 57 L 11 L 144/65 10/07/22 23:00 55 L 16 162/91 10/07/22 22:00 62 12 162/90 10/07/22 21:00 53 L 15 164/90 10/07/22 20:00 98.2 F 84 24 179/91 10/07/22 19:00 58 L 13 172/93 10/07/22 18:00 56 L 13 193/98 10/07/22 17:00 69 27 H 154/79 10/07/22 16:00 98.0 F 59 L 17 143/73 10/07/22 15:04 10/07/22 15:00 57 L 17 153/82 10/07/22 14:00 67 17 166/92 10/07/22 13:34 10/07/22 13:00 62 18 10/07/22 12:57 10/07/22 12:18 97.5 F L 26 H 179/108 10/07/22 11:45 66 19 10/07/22 11:30 74 17 10/07/22 11:15 80 18 10/07/22 11:00 81 16 10/07/22 10:45 87 16 10/07/22 10:30 96 20 10/07/22 10:19 10/07/22 10:15 100 22 10/07/22 10:01 10/07/22 10:00 118 H 28 H 10/07/22 09:45 116 H 27 H 10/07/22 09:39 10/07/22 09:38 120 H 10/07/22 09:30 106 H 20 10/07/22 09:27 86 10/07/22 09:19 10/07/22 09:18 10/07/22 09:17 97.1 F L 85 20 10/07/22 07:13 97.3 F L 71 16 195/93 BP Pulse Ox FiO2 10/08/22 06:00 98 10/08/22 05:00 97 10/08/22 04:00 94 L 10/08/22 03:00 97 10/08/22 02:00 97 10/08/22 01:00 99 10/08/22 00:00 97 10/07/22 23:05 96 10/07/22 23:00 96 10/07/22 22:00 95 10/07/22 21:00 94 L 10/07/22 20:00 97 10/07/22 19:00 96 10/07/22 18:00 97 10/07/22 17:00 97 10/07/22 16:00 97 40 10/07/22 15:04 40 10/07/22 15:00 96 10/07/22 14:00 97 10/07/22 13:34 40 10/07/22 13:00 98 10/07/22 12:57 50 10/07/22 12:18 98 50 10/07/22 11:45 142/69 97 50 10/07/22 11:30 143/70 96 50 10/07/22 11:15 142/66 94 L 50 10/07/22 11:00 135/63 95 50 10/07/22 10:45 134/63 95 50 10/07/22 10:30 141/65 94 L 50 10/07/22 10:19 50 10/07/22 10:15 158/74 94 L 50 10/07/22 10:01 50 10/07/22 10:00 210/103 98 100 10/07/22 09:45 223/108 97 50 10/07/22 09:39 50 10/07/22 09:38 10/07/22 09:30 214/111 93 L 100 10/07/22 09:27 10/07/22 09:19 100 10/07/22 09:18 100 10/07/22 09:17 116/69 100 100 10/07/22 07:13 96 Intake and Output 10/07/22 10/08/22 10/08/22 22:59 06:59 14:59 Intake Total 1050 1525 Output Total 540 546 Balance 510 979 Intake: IV 1050 1175 D5-0.45% NaCl with KCl 1000 1125 20Meq/l 1,000 ml @ 125 mls/hr IV .Q8H [facility] Rx#: [id number] ceFAZolin 2 gm In Sodium 50 50 Chloride 0.9% 50 ml @ 100 mls/hr IVPB ONCE PRN Rx# :[id number] Oral 350 Output: Urine 540 546 Other: Voiding Method Indwelling Catheter Indwelling Catheter Weight 105.6 kg Results 10/08/22 05:26 10/08/22 05:26 CBC 10/08/22 Range/Units 05:26 WBC 9.9 (3.8-10.6) k/uL RBC 4.70 (3.80-5.40) m/uL Hgb 14.1 (11.4-16.0) gm/dL Hct 43.1 (34.0-46.0) % Plt Count 236 (150-450) k/uL Comprehensive Metabolic Panel 10/08/22 Range/Units 05:26 Sodium 136 L (137-145) mmol/L Potassium 4.8 (3.5-5.1) mmol/L Chloride 105 (98-107) mmol/L Carbon Dioxide 27 (22-30) mmol/L BUN 15 (7-17) mg/dL Creatinine 0.69 (0.52-1.04) mg/dL Glucose 141 H (74-99) mg/dL Calcium 8.8 (8.4-10.2) mg/dL Current Medications Generic Name Dose Route Start Last Admin Trade Name Freq PRN Reason Stop Dose Admin Enoxaparin Sodium 40 mg 10/08/22 09:00 Enoxaparin 40 Mg/0.4 Ml Syringe SQ 11/06/22 09:01 DAILY ARLINE Famotidine 20 mg 10/07/22 09:00 10/07/22 20:47 Famotidine 20 Mg/2 Ml Vial IV 11/06/22 09:01 20 mg Q12HR ARLINE Administration Potassium Chloride/Dextrose/Sod Cl 1,000 mls @ 125 mls/hr 10/07/22 12:00 10/07/22 22:42 D5%-1/2ns-Kcl 20 Meq/L Iv Solution IV 11/06/22 12:01 125 mls/hr .Q8H ARLINE Administration Metoclopramide HCl 10 mg 10/07/22 12:00 10/08/22 01:00 Metoclopramide 5 Mg/Ml 2 Ml Vial IVP 11/06/22 12:01 10 mg Q6HR ARLINE Administration Morphine Sulfate 5 mg 10/07/22 16:56 10/07/22 20:57 Morphine Sulfate 4 Mg/Ml Syringe IVP 5 mg Q4HR PRN Administration Pain/Discomfort Naloxone HCl 0.2 mg 10/07/22 12:50 Naloxone 0.4 Mg/Ml 1 Ml Vial IV Q2M PRN Opioid Reversal Ondansetron HCl 4 mg 10/07/22 08:58 10/07/22 16:58 Ondansetron 4 Mg/2 Ml Vial IVP 11/06/22 08:59 4 mg Q6HR PRN Administration Nausea And Vomiting Intake and Output 10/07/22 10/08/22 10/08/22 22:59 06:59 14:59 Intake Total 1050 1525 Output Total 540 546 Balance 510 979 Intake: IV 1050 1175 D5-0.45% NaCl with KCl 1000 1125 20Meq/l 1,000 ml @ 125 mls/hr IV .Q8H [facility] Rx#: [id number] ceFAZolin 2 gm In Sodium 50 50 Chloride 0.9% 50 ml @ 100 mls/hr IVPB ONCE PRN Rx# :[id number] Oral 350 Output: Urine 540 546 Other: Voiding Method Indwelling Catheter Indwelling Catheter Weight 105.6 kg 10/08/22 05:26 10/08/22 05:26
[2022-10-08] MEDS: D5-0.45% NACL WITH KCL 20MEQ/L 1,000 ML IV SCH (07:50)
[2022-10-08] MEDS ORDERED: POTASSIUM CHLORIDE ER 20 MEQ TAB.ER PO PRN (08:06)
[2022-10-08] MEDS ORDERED: SUMAtriptan succinate 50 MG TAB PO PRN (08:06)
[2022-10-08] MEDS: FUROSEMIDE 40 MG TAB PO SCH (09:00)
[2022-10-08] MEDS: ASPIRIN-ACET-CAFF 250-250-65MG 1 EACH TAB PO PRN (09:00)
[2022-10-08] MEDS: LOSARTAN 50 MG TAB PO SCH ×2 (09:00→20:22)
[2022-10-08] MEDS: MAGNESIUM OXIDE 400 MG TAB PO SCH (09:00)
[2022-10-08] MEDS: FAMOTIDINE 20 MG/2 ML VIAL IV SCH ×2 (09:01→20:22)
[2022-10-08] MEDS: ENOXAPARIN 40 MG/0.4 ML SYRINGE SQ SCH (09:01)
[2022-10-08] MEDS: DEXTROSE 5%-0.45% NACL 1,000 ML IV SCH ×2 (09:01→17:26)
[2022-10-08] MEDS: carvediloL 12.5 MG TAB PO SCH ×2 (09:02→17:27)
--- NOTE | 2022-10-08 09:04 | XR ---
EXAMINATION TYPE: XR chest 1V portable DATE OF EXAM: 10/08/2022 COMPARISON: NONE HISTORY: Shortness of breath TECHNIQUE: Single frontal view of the chest is obtained. FINDINGS: There is no focal air space opacity, pleural effusion, or pneumothorax seen. The cardiac silhouette size is within normal limits. The osseous structures are intact. Heart size prominent. N o overt failure. IMPRESSION: No acute process.
[2022-10-08] MEDS: SYMBICORT 160-4.5 MCG INHALER INHALATION SCH ×2 (09:05→20:23)
--- NOTE | 2022-10-08 10:04 | P.CONS ---
History of Present Illness - History of Present Illness This is a pleasant 47 years old female with multiple medical problems as below including CHF, atrial fibrillation and COPD with nicotine dependence. Was admitted for gastroesophageal reflux disease status post Cristy fundoplication procedure on 10/07/2022. Today is postoperative day #1. Postoperatively patient developed interstitial edema requiring BiPAP at IV Lasix with close monitoring in the ICU. Pulmonary and cardiology team both evaluated the patient. Her ejection fraction 45%. Today she is fully awake and oriented She denies chest pain or dyspnea while sitting in bed. No significant coughing. No abdominal pain or vomiting. No bowel movement yet. Olson catheter in place. No dizziness or weakness. No numbness or tingling or blurred vision. Patient states that she has headache this morning but thus every day for many years. She smokes 2 packs per day and she was counseled, she declines nicotine patch. No alcohol or illicit tracts Vitals stable, blood pressure is slightly elevated. She is saturating 96% on room air. Not tachypneic review showing unremarkable CBC and BMP Review of Systems Review of systems CONSTITUTIONAL: No fever, no malaise, no fatigue. HEENT: No recent visual problems or hearing problems. Denied any sore throat. CARDIOVASCULAR: No orthopnea, PND, no palpitations, no syncope. PULMONARY: No shortness of breath, no cough, no hemoptysis. GASTROINTESTINAL: No diarrhea, no nausea, no vomiting, no abdominal pain. Normoactive bowel sounds. NEUROLOGICAL: No headaches, no weakness, no numbness. HEMATOLOGICAL: Denies any bleeding or petechiae. GENITOURINARY: Denies any burning micturition, frequency, or urgency. MUSCULOSKELETAL/RHEUMATOLOGICAL: Denies any joint pain, swelling, or any muscle pain. ENDOCRINE: Denies any polyuria or polydipsia. Past Medical History Past Medical History: Atrial Fibrillation, Heart Failure, COPD, GERD/Reflux, Hyperlipidemia, Hypertension, Pneumonia, Seizure Disorder, Sleep Apnea/CPAP/BI PAP Additional Past Medical History / Comment(s): Hx multiple kidney stones. Hx Pneumonia, vented-2011. Peptic ulcers. Sleep apnea-no device use. Bilateral Occipital Neuritis, headaches, vertigo. Neuropathy and edema bilateral lower legs, "legs give out at times". had brain surg. for convulsions 2012, still has "mini seizures daily", Hx diverticulitis, colon polyps and hemorrhoids. +Covid 1/20/22, mild symptoms, antibody treatment. CTS enrique History of Any Multi-Drug Resistant Organisms: None Reported Past Surgical History: Cholecystectomy, Heart Catheterization, Hernia Repair Additional Past Surgical History / Comment(s): Brain surgery in 2012 for seizures and headaches, right ovary/tube removed, D&C, Picc Line insertion and removal, kidney stone surgically removed, cystoscopy with ureteral stent, lithotripsy, Laproscopic Cristy Fundoplasty, colonoscopy, recent EGD Past Anesthesia/Blood Transfusion Reactions: No Reported Reaction, Motion Sickness Additional Past Anesthesia/Blood Transfusion Reaction / Comm: "Pulmonary edema during kidney surgery, was in induced coma for 3 days". Smoking Status: Current every day smoker - Past Family History Father Family Medical History: AFIB, Diabetes Mellitus, Hypertension Additional Family Medical History / Comment(s): Pacemaker. Mother Family Medical History: Cancer Additional Family Medical History / Comment(s): of pancreatic cancer at the age of 58yrs. Maternal cousin had pancreatic cancer. Maternal uncle had lung cancer. Sister(s) Family Medical History: AICD/Pacemaker Additional Family Medical History / Comment(s): the patient has one sister with AICD. Second sister has no major medical problems. Patient's 1 brother that is healthy. Patient has one son and one daughter with no major medical problems. Medications and Allergies Home Medications Medication Instructions Recorded Confirmed Type Fluticasone Propion/Salmeterol 1 puff INHALATION BID 09/06/21 10/02/22 History [Advair 500-50 Diskus] Rizatriptan Benzoate [Rizatriptan] 10 mg PO BID PRN 09/06/21 10/02/22 History Simvastatin [Zocor] 10 mg PO HS 09/06/21 10/02/22 History Aspirin EC [Ecotrin Low Dose] 81 mg PO W/SUPPER 10/11/21 10/02/22 History carvediloL [Coreg] 25 mg PO BID-W/MEALS 10/11/21 10/02/22 History Albuterol Inhaler [Ventolin Hfa 1 puff INHALATION Q6H PRN 11/08/21 10/02/22 History Inhaler] Furosemide [Lasix] 40 mg PO DAILY 11/08/21 10/02/22 History Potassium Chloride ER [K-Dur 20] 20 meq PO DAILY PRN 11/08/21 10/02/22 History Losartan Potassium [Cozaar] 100 mg PO BID 01/09/22 10/02/22 History Magnesium 300mg 300 mg PO DAILY 06/06/22 10/02/22 History Apixaban [Eliquis] 5 mg PO BID tab 06/11/22 10/02/22 Rx Nitroglycerin 0.4 mg SL Q5M PRN 08/20/22 10/02/22 History Aspirin/Acetaminophen/Caffeine 1 each PO DAILY PRN 10/02/22 10/02/22 History [Excedrin Extra Strength Caplet] Allergies Allergy/AdvReac Type Severity Reaction Status Date / Time pregabalin [From Lyrica] Allergy Unknown Rash/Hives Verified 10/07/22 07:21 acetylcysteine Allergy Swelling Verified 10/07/22 07:21 hydromorphone HCl AdvReac headache Verified 10/07/22 07:21 [From Dilaudid] BERRIES Allergy Anaphylaxis Uncoded 10/07/22 07:21 Physical Exam Vitals: Vital Signs Temp Pulse Pulse Resp BP BP Pulse Ox 10/08/22 07:00 52 H 140/76 97 10/08/22 06:00 30 H 140/76 98 10/08/22 05:00 55 L 11 L 140/76 97 10/08/22 04:00 97.9 F 53 L 11 L 140/76 94 L 10/08/22 03:00 59 L 12 140/76 97 10/08/22 02:00 58 L 11 L 97 10/08/22 01:00 57 L 11 L 99 10/08/22 00:00 98.3 F 76 11 L 144/65 97 10/07/22 23:05 57 L 11 L 144/65 96 10/07/22 23:00 55 L 16 162/91 96 10/07/22 22:00 62 12 162/90 95 10/07/22 21:00 53 L 15 164/90 94 L 10/07/22 20:00 98.2 F 84 24 179/91 97 10/07/22 19:00 58 L 13 172/93 96 10/07/22 18:00 56 L 13 193/98 97 10/07/22 17:00 69 27 H 154/79 97 10/07/22 16:00 98.0 F 59 L 17 143/73 97 10/07/22 15:04 10/07/22 15:00 57 L 17 153/82 96 10/07/22 14:00 67 17 166/92 97 10/07/22 13:34 10/07/22 13:00 62 18 98 10/07/22 12:57 10/07/22 12:18 97.5 F L 26 H 179/108 98 10/07/22 11:45 66 19 142/69 97 10/07/22 11:30 74 17 143/70 96 10/07/22 11:15 80 18 142/66 94 L 10/07/22 11:00 81 16 135/63 95 10/07/22 10:45 87 16 134/63 95 10/07/22 10:30 96 20 141/65 94 L 10/07/22 10:19 10/07/22 10:15 100 22 158/74 94 L 10/07/22 10:01 10/07/22 10:00 118 H 28 H 210/103 98 FiO2 10/08/22 07:00 10/08/22 06:00 10/08/22 05:00 10/08/22 04:00 10/08/22 03:00 10/08/22 02:00 10/08/22 01:00 10/08/22 00:00 10/07/22 23:05 10/07/22 23:00 10/07/22 22:00 10/07/22 21:00 10/07/22 20:00 10/07/22 19:00 10/07/22 18:00 10/07/22 17:00 10/07/22 16:00 40 10/07/22 15:04 40 10/07/22 15:00 10/07/22 14:00 10/07/22 13:34 40 10/07/22 13:00 10/07/22 12:57 50 10/07/22 12:18 50 10/07/22 11:45 50 10/07/22 11:30 50 10/07/22 11:15 50 10/07/22 11:00 50 10/07/22 10:45 50 10/07/22 10:30 50 10/07/22 10:19 50 10/07/22 10:15 50 10/07/22 10:01 50 10/07/22 10:00 100 Intake and Output 10/07/22 10/08/22 10/08/22 22:59 06:59 14:59 Intake Total 1050 1525 Output Total 540 546 Balance 510 979 Intake: IV 1050 1175 D5-0.45% NaCl with KCl 1000 1125 20Meq/l 1,000 ml @ 125 mls/hr IV .Q8H [facility] Rx#: [id number] ceFAZolin 2 gm In Sodium 50 50 Chloride 0.9% 50 ml @ 100 mls/hr IVPB ONCE PRN Rx# :[id number] Oral 350 Output: Urine 540 546 Other: Voiding Method Indwelling Catheter Indwelling Catheter Weight 105.6 kg -GENERAL: The patient is alert and oriented x3, not in any acute distress. Obese HEENT: Pupils are round and equally reacting to light. EOMI. No scleral icterus. No conjunctival pallor. Normocephalic, atraumatic. No pharyngeal erythema. No thyromegaly. CARDIOVASCULAR: S1 and S2 present. No murmurs, rubs, or gallops. PULMONARY: Chest is clear to auscultation, no wheezing or crackles. -ABDOMEN: Soft, nontender, nondistended, normoactive bowel sounds. No palpable organomegaly. Laparoscopic cholecystectomy once are close and heal MUSCULOSKELETAL: No joint swelling or deformity. EXTREMITIES: No cyanosis, clubbing, or pedal edema. NEUROLOGICAL: Gross neurological examination did not reveal any focal deficits. SKIN: No rashes. no petechiae. Results CBC & Chem 7: 10/08/22 05:26 10/08/22 05:26 Labs: Abnormal Lab Results - Last 24 Hours (Table) 10/07/22 10/07/22 10/08/22 Range/Units 12:23 12:50 05:26 Neutrophils # 8.3 H (1.3-7.7) k/uL ABG pCO2 48 H (35-45) mmHg ABG pO2 128 H (83-108) mmHg ABG HCO3 27 H (21-25) mmol/L ABG Total CO2 29 H (19-24) mmol/L ABG O2 Saturation 99.4 H (94-97) % Sodium (137-145) mmol/L Glucose (74-99) mg/dL POC Glucose (mg/dL) 193 H (70-110) mg/dL 10/08/22 Range/Units 05:26 Neutrophils # (1.3-7.7) k/uL ABG pCO2 (35-45) mmHg ABG pO2 (83-108) mmHg ABG HCO3 (21-25) mmol/L ABG Total CO2 (19-24) mmol/L ABG O2 Saturation (94-97) % Sodium 136 L (137-145) mmol/L Glucose 141 H (74-99) mg/dL POC Glucose (mg/dL) (70-110) mg/dL Assessment and Plan Assessment: gastroesophageal reflux disease status post Cristy fundoplication procedure on 10/07/2022. Pulmonary edema related to her history of acute on chronic CHF with ejection fraction of 45% Acute hypoxic respiratory failure secondary to above, improved Chronic atrial fibrillation Chronic headache for more than 20 years as per patient Nicotine dependence COPD, no acute exacerbation Hyperlipidemia Hypertension History of seizure disorder History of sleep apnea Obesity with BMI of 43.3 Plan: Continue with liquid diet Pain management per surgery team Pulmonary cartilage consult Continue with Lasix Continue with postop care and management and close monitoring Labs and medication were reviewed.. Continue same treatment. Continue with symptomatic treatment. Resume home medication. Monitor labs and vitals. DVT and GI prophylaxis. Further recommendations as per clinical course of the patient DVT prophylaxis: Subcutaneous heparin GI Prophylaxis: Pepcid PT/OT: Pending Prognosis is guarded Thank you for consulting us, we will follow up with
--- NOTE | 2022-10-08 11:29 | P.PN ---
Subjective Progress Note Date: 10/08/22 Principal diagnosis: Acute hypoxic respiratory distress secondary to acute systolic congestive heart failure This is a 47-year-old female history of multiple medical problems including nonocclusive coronary artery disease, history of hypertension, atrial fibrillation, patient was scheduled to undergo a hernia surgery back on 09/23/22, however patient developed SVT and hypertension required canceling of the procedure, patient was seen by cardiology at that time, her cardiac medications were readjusted, patient was discharged home, and today she underwent Cristy's fundoplication. Postoperatively the patient was admitted the recovery room, she was extubated, however she developed pulmonary edema, she had to be reintubated, extubated again, and I was asked to see her in consultation. I saw the patient in the recovery room, clearly her chest x-ray showed evidence of pulmonary edema, recommended Lasix, patient is on BiPAP with IPAP of 14 and EPAP of 6, chest x-ray was reviewed, The patient on BiPAP, and I recommended transfer to the ICU. Cardiology consult was reinitiated. Patient is known to have history of nonischemic cardiomyopathy, ejection fraction is normally about 45% her rhythm was mostly sinus rhythm, and the patient was not in distress while on BiPAP. ABG on BiPAP is pending. Reevaluated today on 10/08/22, patient remains in the ICU, feeling much better today, breathing a lot easier. She is on 2 L nasal cannula, her chest x-ray showed significant improvement in her pulmonary edema. Patient is doing well, relatively asymptomatic, off BiPAP this morning. Apparently the patient had recent repeat echocardiogram showing improvement in her LV function, and according to the glove brusher she had an ejection fraction of 50-55%. Echocardiogram from last January showed good LV function with ejection fraction of 50-55%, echocardiogram from 09/06/21 showed ejection fraction of 40-45%. And there was evidence of moderate mitral regurgitation. At any rate patient did receive Lasix yesterday, improved with Lasix, and did not have to be reintubated. She was on BiPAP yesterday and today she is transitioned to a nasal cannula. I plan to transfer the patient out of the ICU to a cardiac medical floor. CBC is normal, basic metabolic profile is normal renal profile is normal, chest x-ray today is showing no acute process Objective - Vital Signs Vital signs: Vital Signs Temp 97.7 F 10/08/22 08:00 Pulse 50 L 10/08/22 10:00 Resp 17 10/08/22 10:00 BP 174/84 10/08/22 10:00 Pulse Ox 96 10/08/22 10:00 FiO2 40 10/07/22 16:00 Intake & Output 10/07/22 10/08/22 10/08/22 18:59 06:59 18:59 Intake Total 2325 2025 125 Output Total 2100 711 275 Balance 225 1314 -150 Weight 103.6 kg 105.6 kg Intake: IV 2325 1675 125 D5-0.45% NaCl with KCl 875 1625 20Meq/l 1,000 ml @ 125 mls/hr IV .Q8H REPLACED BY [facility] Rx#: [id number] Dextrose 5%-0.45% NaCl 1, 125 000 ml @ 125 mls/hr IV . Q8H REPLACED BY [facility] Rx#:[id number] ceFAZolin 2 gm In Sodium 50 50 Chloride 0.9% 50 ml @ 100 mls/hr IVPB ONCE PRN Rx# :[id number] Oral 350 Output: Urine 2075 711 275 Estimated Blood Loss 25 Other: Voiding Method Indwelling Catheter Indwelling Catheter Indwelling Catheter - Exam GENERAL EXAM: Revealed 47-year-old female, obese, on 2 L nasal cannula, in no distress. HEAD: Normocephalic. EENT: PERRLA, AR, nonicteric, neck masses no JVD. CHEST: No chest wall deformity. LUNGS: Clear throughout no crackles or rhonchi or wheezes CVS: S1 and S2 normal with no audible murmur, regular rhythm. ABDOMEN: No hepatosplenomegaly, normal bowel sounds, no guarding or rigidity. SPINE: No scoliosis or deformity SKIN: No rashes CENTRAL NERVOUS SYSTEM: Alert and oriented 3 focal deficit EXTREMITIES: No clubbing edema or cyanosis psychiatric: Normal mood affect and normal mental status examination - Labs CBC & Chem 7: 10/08/22 05:26 10/08/22 05:26 Labs: Abnormal Lab Results - Last 24 Hours (Table) 10/07/22 10/07/22 10/08/22 Range/Units 12:23 12:50 05:26 Neutrophils # 8.3 H (1.3-7.7) k/uL ABG pCO2 48 H (35-45) mmHg ABG pO2 128 H (83-108) mmHg ABG HCO3 27 H (21-25) mmol/L ABG Total CO2 29 H (19-24) mmol/L ABG O2 Saturation 99.4 H (94-97) % Sodium (137-145) mmol/L Glucose (74-99) mg/dL POC Glucose (mg/dL) 193 H (70-110) mg/dL 10/08/22 Range/Units 05:26 Neutrophils # (1.3-7.7) k/uL ABG pCO2 (35-45) mmHg ABG pO2 (83-108) mmHg ABG HCO3 (21-25) mmol/L ABG Total CO2 (19-24) mmol/L ABG O2 Saturation (94-97) % Sodium 136 L (137-145) mmol/L Glucose 141 H (74-99) mg/dL POC Glucose (mg/dL) (70-110) mg/dL Assessment and Plan Assessment: Impression: Status post Cristy fundoplication, postoperative day #1 Acute hypoxic respiratory failure secondary to pulmonary edema, differential diagnoses includes acute diastolic congestive heart failure, and very unlikely negative pressure pulmonary edema. Last echocardiogram showed preserved LV function and this was in January paroxysmal atrial fibrillation Obesity. History of underlying COPD. History of obstructive sleep apnea syndrome. History of GERD malformation requiring craniotomy in 2012. Benign essential hypertension Type 2 diabetes Diabetic neuropathy Dyslipidemia Recommendation: Continue oxygen and titrate accordingly patient could possibly go on room air. Resume home meds. No need for BiPAP at this point. Resume cardiac meds. Including her usual dose of Lasix. Transfer patient out of the ICU to a night monitor bed. Consider possible discharge planning in the next 24-48 hours Continue bronchodilators. GI and DVT prophylaxis. We will continue to follow Time with Patient: Less than 30
[2022-10-08] MEDS: DEXAMETHASONE SOD PHOSPHATE 4 MG/ML 1 ML VIAL IVP SCH ×2 (11:40→17:27)
[2022-10-08 13:07] VITALS: BMI 43.2
[2022-10-08] MEDS: ONDANSETRON 4 MG/2 ML VIAL IVP PRN ×2 (15:16→20:30)
[2022-10-08] MEDS: ASPIRIN 81 MG PO SCH (17:27)
[2022-10-08] MEDS: ATORVASTATIN 10 MG TAB PO SCH (20:22)
[2022-10-08] MEDS: hydrALAZINE HCL 20 MG/ML 1 ML VIAL IVP PRN (22:39)
[2022-10-09] MEDS: METOCLOPRAMIDE 5 MG/ML 2 ML VIAL IVP SCH ×5 (00:12→23:19)
[2022-10-09] MEDS: DEXAMETHASONE SOD PHOSPHATE 4 MG/ML 1 ML VIAL IVP SCH ×6 (01:00→23:19)
[2022-10-09 01:05] LABS: Glucose,Whole Blood 130 mg/dL (70-110)
[2022-10-09] MEDS: MORPHINE SULFATE 4 MG/ML SYRINGE IVP PRN (01:14)
[2022-10-09 04:01] LABS: Basophils % (A) 0 %; Eosinophils % (A) 1 %; HCT 43.7 % (34.0-46.0); HGB 14.7 gm/dL (11.4-16.0); Lymphocytes # (A) 1.2 k/uL (1.0-4.8); Lymphocytes % (A) 14 %; MCH 30.4 pg (25.0-35.0); MCHC 33.7 g/dL (31.0-37.0); MCV 90.3 fL (80.0-100.0); Mean Platelet Volume 8.4; Monocytes # (A) 0.3 k/uL (0-1.0); Monocytes % (A) 3 %; Neutrophils # (A) 7.2 k/uL (1.3-7.7); Neutrophils % (A) 82 %; Platelet Count 221 k/uL (150-450); RBC 4.84 m/uL (3.80-5.40); RDW 13.3 % (11.5-15.5); WBC 8.8 k/uL (3.8-10.6)
[2022-10-09 04:18] LABS: African American GFR (CKD) >90 (>60 ml/min/1.73 sqM); Anion Gap 7 mmol/L; Blood Urea Nitrogen 18 mg/dL (7-17); Calcium 9.3 mg/dL (8.4-10.2); Carbon Dioxide 28 mmol/L (22-30); Chloride 103 mmol/L (98-107); Glucose 131 mg/dL (74-99); Non-African American GFR(CKD) >90 (>60 ml/min/1.73 sqM); Potassium 4.2 mmol/L (3.5-5.1); Sodium 138 mmol/L (137-145)
[2022-10-09] MEDS: carvediloL 12.5 MG TAB PO SCH ×2 (06:50→17:21)
[2022-10-09] MEDS: ASPIRIN-ACET-CAFF 250-250-65MG 1 EACH TAB PO PRN ×2 (07:39→17:20)
[2022-10-09] MEDS: ALBUTEROL NEBULIZED 2.5 MG/3 ML INHALATION PRN ×2 (07:45→20:14)
[2022-10-09] MEDS ORDERED: ACETAMINOPHEN TAB 325 MG TAB PO PRN (07:46)
[2022-10-09] MEDS: SYMBICORT 160-4.5 MCG INHALER INHALATION SCH ×3 (07:46→20:30)
--- NOTE | 2022-10-09 08:12 | P.PN ---
Subjective HISTORY OF PRESENTING ILLNESS Patient is a pleasant 46-year-old female with history of hypertension, left bundle branch block, nonischemic cardiomyopathy, mild nonobstructive CAD, COPD, tobacco abuse, paroxysmal atrial fibrillation, hyperlipidemia. She follows with Dr. Mendoza. She did have recent workup with heart catheterization May 2022 with FFR of LAD 60% lesion which was normal. She presented for elective hiatal hernia repair 10/07 which was uneventful however postoperatively upon next a patient she had flash pulmonary edema requiring BiPAP and then reintubation. Her blood pressure is extremely elevated 220s over 110s. She was given Lasix with good urine output. She was eventually weaned from the BiPAP and her blood pressure better controlled in the 130s to 140s systolic. She currently is on 4 L nasal cannula. She denies any chest pain however does have pain throughout her throat which is worse with any swallowing or hiccups. 10/09 Patient seen and examined. Patient still having a headache and nauseous and not keeping medications down. Per nursing concern of patient throwing up multiple medications. Blood pressure therefore has been elevated in the 170s to 180s over 110. Denies any chest pain or pressure. Feels her breathing is back to normal. PHYSICAL EXAMINATION Vital signs reviewed. CONSTITUTIONAL: No apparent distress. HEENT: Head is normocephalic. Pupils are equal, round. Sclerae anicteric. Mucous membranes of the mouth are moist. No JVD. No carotid bruit. CHEST EXAMINATION: Lungs are clear to auscultation. No chest wall tenderness is noted on palpation or with deep breathing. HEART EXAMINATION: Regular rate and rhythm. S1, S2 heard. No murmurs, gallops or rub. ABDOMEN: Soft, nontender. Positive bowel sounds. EXTREMITIES: 2+ peripheral pulses, no lower extremity edema and no calf tendern ess. NEUROLOGIC EXAMINATION: Patient is awake, alert and oriented x3. ASSESSMENT 1. Acute on chronic diastolic heart failure, EF 50-55% 02/08 likely exacerbated by extreme hypertension. Possibility of negative pressure pulmonary edema post extubation 2. Paroxysmal atrial fibrillation, currently sinus rhythm 3. Hypertension 4. Status post hiatal hernia repair 10/07 5. Coronary artery disease, 60% LAD stenosis catheterization 05/2022 FFR negative 6. Left bundle-branch block 7. History of nonischemic cardiomyopathy, EF improved to 50-55% by most recent echo 01/2022 PLAN Patient frequently has headaches and suspect patient having headaches separate then her increased blood pressure. It appears her hypertension likely related to not being able to keep her blood pressure meds down. Discussed with nursing giving medications early and if blood pressure still remains elevated likely add Aldactone. If blood pressure better and patient able tolerate diet patient will be cleared from discharge from a cardiology standpoint. Further recommendations to follow. Objective - Vital Signs Vital signs: Vital Signs Temp 98.2 F 10/09/22 00:00 Pulse 60 10/09/22 08:00 Resp 16 10/09/22 04:00 BP 152/75 10/09/22 04:00 Pulse Ox 96 10/09/22 04:00 FiO2 40 10/07/22 16:00 Intake & Output 10/08/22 10/09/22 10/09/22 18:59 06:59 18:59 Intake Total 375 25 Output Total 775 Balance -400 25 Weight 105.6 kg 101 kg Intake: IV 125 Dextrose 5%-0.45% NaCl 1, 125 000 ml @ 125 mls/hr IV . Q8H [facility] Rx#:[id number] Oral 250 25 Output: Urine 775 Other: Voiding Method Toilet Toilet # Voids 2 2 - Labs CBC & Chem 7: 10/09/22 03:47 10/09/22 03:47 Labs: Abnormal Lab Results - Last 24 Hours (Table) 10/09/22 10/09/22 Range/Units 01:03 03:47 BUN 18 H (7-17) mg/dL Glucose 131 H (74-99) mg/dL POC Glucose (mg/dL) 130 H (70-110) mg/dL
[2022-10-09] MEDS: DEXTROSE 5%-0.45% NACL 1,000 ML IV SCH ×2 (08:55→17:21)
[2022-10-09] MEDS ORDERED: SPIRONOLACTONE 25 MG TAB PO SCH (09:00)
[2022-10-09] MEDS: LOSARTAN 50 MG TAB PO SCH ×2 (09:14→20:00)
[2022-10-09] MEDS: MAGNESIUM OXIDE 400 MG TAB PO SCH (09:14)
[2022-10-09] MEDS: FUROSEMIDE 40 MG TAB PO SCH (09:14)
[2022-10-09] MEDS: FAMOTIDINE 20 MG/2 ML VIAL IV SCH ×2 (09:14→20:00)
[2022-10-09] MEDS: ENOXAPARIN 40 MG/0.4 ML SYRINGE SQ SCH (09:14)
--- NOTE | 2022-10-09 10:39 | P.PN ---
Subjective Progress Note Date: 10/08/22 CHIEF COMPLAINT: GERD HISTORY OF PRESENT ILLNESS: Patient is postop day #1 status post Cristy fundoplication. Patient had flash pulmonary edema after surgery. She required to be reintubated. She was able to be successfully extubated yesterday. Patient did receive IV Lasix. She is currently on Cristy clear liquid diet. Patient reports minimal intake of liquids. Every time she drinks she gets hicc ups and is having regurgitation. Denies any abdominal pain. Denies any vomiting. Afebrile. On room air satting at 96%. She's sitting at bedside chair. BP elevated this morning. Home BP meds restarted. WBC is 9.9 HGb is 14.1 and platelets 236 seconds 136 potassium is 4.8 creatinine 0.6 chest x-ray no acute process PHYSICAL EXAM: VITAL SIGNS: Reviewed. GENERAL: Well-developed in no acute distress. HEENT: No sclera icterus. Extraocular movements grossly intact. Moist buccal mucosa. Head is atraumatic, normocephalic. ABDOMEN: Soft. Nondistended. Incision sites clean dry and intact NEUROLOGIC: Alert and oriented. Cranial nerves II through XII grossly intact. ASSESSMENT: 1. GERD Status post laparoscopic Cristy fundoplication 2. Possible postoperative edema at fundoplication site causing the hiccups and regurgitation 3. Postoperative pulmonary edema PLAN: -Decadron 4 mg IV every 6 hours ordered for postoperative edema -Continue Cristy clear liquid diet -Encourage patient to ambulate -Encourage patient to use incentive spirometer Physician Legal Biller note has been reviewed by physician. Signing provider agrees with the documented findings, assessment, and plan of care. Objective - Vital Signs Vital signs: Vital Signs Temp 97.7 F 10/08/22 08:00 Pulse 50 L 10/08/22 10:00 Resp 17 10/08/22 10:00 BP 174/84 10/08/22 10:00 Pulse Ox 96 10/08/22 10:00 FiO2 40 10/07/22 16:00 Intake & Output 10/07/22 10/08/22 10/08/22 18:59 06:59 18:59 Intake Total 2325 2025 125 Output Total 2100 711 275 Balance 225 1314 -150 Weight 103.6 kg 105.6 kg Intake: IV 2325 1675 125 D5-0.45% NaCl with KCl 875 1625 20Meq/l 1,000 ml @ 125 mls/hr IV .Q8H [facility] Rx#: [id number] Dextrose 5%-0.45% NaCl 1, 125 000 ml @ 125 mls/hr IV . Q8H [facility] Rx#:[id number] ceFAZolin 2 gm In Sodium 50 50 Chloride 0.9% 50 ml @ 100 mls/hr IVPB ONCE PRN Rx# :[id number] Oral 350 Output: Urine 2075 711 275 Estimated Blood Loss 25 Other: Voiding Method Indwelling Catheter Indwelling Catheter Indwelling Catheter - Labs CBC & Chem 7: 10/08/22 05:26 10/08/22 05:26 Labs: Abnormal Lab Results - Last 24 Hours (Table) 10/07/22 10/07/22 10/08/22 Range/Units 12: 12:50 05:26 Neutrophils # 8.3 H (1.3-7.7) k/uL ABG pCO2 48 H (35-45) mmHg ABG pO2 128 H (83-108) mmHg ABG HCO3 27 H (21-25) mmol/L ABG Total CO2 29 H (19-24) mmol/L ABG O2 Saturation 99.4 H (94-97) % Sodium (137-145) mmol/L Glucose (74-99) mg/dL POC Glucose (mg/dL) 193 H (70-110) mg/dL 10/08/22 Range/Units 05:26 Neutrophils # (1.3-7.7) k/uL ABG pCO2 (35-45) mmHg ABG pO2 (83-108) mmHg ABG HCO3 (21-25) mmol/L ABG Total CO2 (19-24) mmol/L ABG O2 Saturation (94-97) % Sodium 136 L (137-145) mmol/L Glucose 141 H (74-99) mg/dL POC Glucose (mg/dL) (70-110) mg/dL
--- NOTE | 2022-10-09 10:45 | P.PN ---
Subjective Progress Note Date: 10/09/22 CHIEF COMPLAINT: GERD HISTORY OF PRESENT ILLNESS: Patient is postop day #2 status post Cristy fundoplication. Patient had flash pulmonary edema after surgery. She required to be reintubated. She was able to be successfully extubated. Patient did receive IV Lasix. Patient is currently in the ICU as a select care overflow. Patient reports having difficulty keeping her liquids down. Every time she drinks anything it regurgitates right back up. She reports that her hiccups are slightly better today. She has been having elevated blood pressures. She is followed by cardiology. They are making adjustments to medications. She's been complaining of headache. She also feels that the headache might be related to caffeine withdrawal. Patient reports that she usually drinks 2 pots of coffee a day. Afebrile. WBC is 8.8 Hgb 14.7 sodium 138 potassium 4.2 creatinine 0.77 PHYSICAL EXAM: VITAL SIGNS: Reviewed. GENERAL: Well-developed in no acute distress. HEENT: No sclera icterus. Extraocular movements grossly intact. Moist buccal mucosa. Head is atraumatic, normocephalic. ABDOMEN: Soft. Nondistended. Incision sites clean dry and intact NEUROLOGIC: Alert and oriented. Cranial nerves II through XII grossly intact. ASSESSMENT: 1. GERD Status post laparoscopic Cristy fundoplication 2. Possible postoperative edema at fundoplication site causing the regurgitation 3. Postoperative pulmonary edema 4. Elevated blood pressure PLAN: -Decadron 4 mg IV every 6 hours ordered for postoperative edema -Continue Cristy clear liquid diet -Encourage patient to ambulate -Encourage patient to use incentive spirometer -GI prophylaxis Pepcid and DVT prophylaxis Lovenox Physician Internal Consultant note has been reviewed by physician. Signing provider agrees with the documented findings, assessment, and plan of care. Objective - Vital Signs Vital signs: Vital Signs Temp 98.1 F 10/09/22 08:00 Pulse 94 10/09/22 08:00 Resp 20 10/09/22 08:00 BP 180/112 10/09/22 08:00 Pulse Ox 94 L 10/09/22 08:00 FiO2 40 10/07/22 16:00 Intake & Output 10/08/22 10/09/22 10/09/22 18:59 06:59 18:59 Intake Total 375 25 Output Total 775 Balance -400 25 Weight 105.6 kg 101 kg Intake: IV 125 Dextrose 5%-0.45% NaCl 1, 125 000 ml @ 125 mls/hr IV . Q8H [facility] Rx#:[id number] Oral 250 25 Output: Urine 775 Other: Voiding Method Toilet Toilet # Voids 2 2 2 - Labs CBC & Chem 7: 10/09/22 03:47 10/09/22 03:47 Labs: Abnormal Lab Results - Last 24 Hours (Table) 10/09/22 10/09/22 Range/Units 01:03 03:47 BUN 18 H (7-17) mg/dL Glucose 131 H (74-99) mg/dL POC Glucose (mg/dL) 130 H (70-110) mg/dL
[2022-10-09] MEDS: hydrALAZINE HCL 20 MG/ML 1 ML VIAL IVP PRN ×2 (10:55→16:30)
--- NOTE | 2022-10-09 13:07 | P.PN ---
Subjective Progress Note Date: 10/09/22 Principal diagnosis: Acute hypoxic respiratory distress secondary to acute systolic congestive heart failure This is a 47-year-old female history of multiple medical problems including nonocclusive coronary artery disease, history of hypertension, atrial fibrillation, patient was scheduled to undergo a hernia surgery back on 09/23/22, however patient developed SVT and hypertension required canceling of the procedure, patient was seen by cardiology at that time, her cardiac medications were readjusted, patient was discharged home, and today she underwent Cristy's fundoplication. Postoperatively the patient was admitted the recovery room, she was extubated, however she developed pulmonary edema, she had to be reintubated, extubated again, and I was asked to see her in consultation. I saw the patient in the recovery room, clearly her chest x-ray showed evidence of pulmonary edema, recommended Lasix, patient is on BiPAP with IPAP of 14 and EPAP of 6, chest x-ray was reviewed, The patient on BiPAP, and I recommended transfer to the ICU. Cardiology consult was reinitiated. Patient is known to have history of nonischemic cardiomyopathy, ejection fraction is normally about 45% her rhythm was mostly sinus rhythm, and the patient was not in distress while on BiPAP. ABG on BiPAP is pending. Reevaluated today on 10/08/22, patient remains in the ICU, feeling much better today, breathing a lot easier. She is on 2 L nasal cannula, her chest x-ray showed significant improvement in her pulmonary edema. Patient is doing well, relatively asymptomatic, off BiPAP this morning. Apparently the patient had recent repeat echocardiogram showing improvement in her LV function, and according to the rib puller she had an ejection fraction of 50-55%. Echocardiogram from last January showed good LV function with ejection fraction of 50-55%, echocardiogram from 09/06/21 showed ejection fraction of 40-45%. And there was evidence of moderate mitral regurgitation. At any rate patient did receive Lasix yesterday, improved with Lasix, and did not have to be reintubated. She was on BiPAP yesterday and today she is transitioned to a nasal cannula. I plan to transfer the patient out of the ICU to a cardiac medical floor. CBC is normal, basic metabolic profile is normal renal profile is normal, chest x-ray today is showing no acute process Reevaluated today on 10/09/22, patient is an overflow in the ICU, doing well, asymptomatic, she is on room air, blood pressure remains elevated, and she is back on her oral medication for hypertension. CBC is normal electrolytes are normal renal profile is normal, patient is tolerating full liquids, and the plan is to possibly transfer the patient out of the ICU once a bed is available. Objective - Vital Signs Vital signs: Vital Signs Temp 98.1 F 10/09/22 12:00 Pulse 70 10/09/22 12:00 Resp 18 10/09/22 12:00 BP 175/92 10/09/22 12:00 Pulse Ox 96 10/09/22 12:00 FiO2 40 10/07/22 16:00 Intake & Output 10/08/22 10/09/22 10/09/22 18:59 06:59 18:59 Intake Total 375 25 Output Total 775 Balance -400 25 Weight 105.6 kg 101 kg Intake: IV 125 Dextrose 5%-0.45% NaCl 1, 125 000 ml @ 125 mls/hr IV . Q8H [facility] Rx#:[id number] Oral 250 25 Output: Urine 775 Other: Voiding Method Toilet Toilet Toilet # Voids 2 2 2 - Exam GENERAL EXAM: Revealed 47-year-old female, obese, on room air HEAD: Normocephalic. EENT: PERRLA, PR, nonicteric, neck masses no JVD. CHEST: No chest wall deformity. LUNGS: Clear throughout no crackles or rhonchi or wheezes CVS: S1 and S2 normal with no audible murmur, regular rhythm. ABDOMEN: No hepatosplenomegaly, normal bowel sounds, no guarding or rigidity. SPINE: No scoliosis or deformity SKIN: No rashes CENTRAL NERVOUS SYSTEM: Alert and oriented 3 focal deficit EXTREMITIES: No clubbing edema or cyanosis psychiatric: Normal mood affect and normal mental status examination - Labs CBC & Chem 7: 10/09/22 03:47 10/09/22 03:47 Labs: Abnormal Lab Results - Last 24 Hours (Table) 10/09/22 10/09/22 Range/Units 01:03 03:47 BUN 18 H (7-17) mg/dL Glucose 131 H (74-99) mg/dL POC Glucose (mg/dL) 130 H (70-110) mg/dL Assessment and Plan Assessment: Impression: Status post Cristy fundoplication, postoperative day #2 Acute hypoxic respiratory failure secondary to pulmonary edema, differential diagnoses includes acute diastolic congestive heart failure, and very unlikely negative pressure pulmonary edema. Last echocardiogram showed preserved LV function and this was in January paroxysmal atrial fibrillation Obesity. History of underlying COPD. History of obstructive sleep apnea syndrome. History of GERD malformation requiring craniotomy in 2012. Benign essential hypertension Type 2 diabetes Diabetic neuropathy Dyslipidemia Recommendation:Resume home meds. Mostly her blood pressure medications Consider possible discharge planning in the next 24-48 hours Continue bronchodilators. GI and DVT prophylaxis. Will clear for discharge when she is cleared by other consultants and the primary care service/surgery Time with Patient: Less than 30
[2022-10-09] MEDS: ASPIRIN 81 MG PO SCH (17:21)
[2022-10-09] MEDS: HYDROcodone/APAP 5-325MG 1 EACH TAB PO PRN ×2 (18:26→23:19)
[2022-10-09] MEDS: ATORVASTATIN 10 MG TAB PO SCH (20:00)
--- NOTE | 2022-10-09 22:18 | P.PN ---
Subjective This is a pleasant 47 years old female with multiple medical problems as below including CHF, atrial fibrillation and COPD with nicotine dependence. Was admitted for gastroesophageal reflux disease status post Cristy fundoplication procedure on 10/07/2022. Today is postoperative day #1. Postoperatively patient developed interstitial edema requiring BiPAP at IV Lasix with close monitoring in the ICU. Pulmonary and cardiology team both evaluated the patient. Her ejection fraction 45%. Today she is fully awake and oriented She denies chest pain or dyspnea while sitting in bed. No significant coughing. No abdominal pain or vomiting. No bowel movement yet. Olson catheter in place. No dizziness or weakness. No numbness or tingling or blurred vision. Patient states that she has headache this morning but thus every day for many years. She smokes 2 packs per day and she was counseled, she declines nicotine patch. No alcohol or illicit tracts Vitals stable, blood pressure is slightly elevated. She is saturating 96% on room air. Not tachypneic review showing unremarkable CBC and BMP 10/09/2022 Patient is breathing quietly, she does not need the BiPAP and he saturating well on room air. That she states she has a rough night because she could not tolerate liquid diet and she has painful pickups and she vomited about 5-6 time, she has poor appetite because of that. She states that Zofran did not help much but she declined other anti emetic medication when I offered to her. Blood pressure is uncontrolled probably secondary to the dexamethasone We will add Norvasc for tomorrow. Labs are stable Other blood pressure medications including Coreg losartan and oral Lasix Objective - Vital Signs Vital signs: Vital Signs Temp 98.1 F 10/09/22 12:00 Pulse 70 10/09/22 12:00 Resp 18 10/09/22 12:00 BP 175/92 10/09/22 12:00 Pulse Ox 96 10/09/22 12:00 FiO2 40 10/07/22 16:00 Intake & Output 10/08/22 10/09/22 10/09/22 18:59 06:59 18:59 Intake Total 375 25 Output Total 775 Balance -400 25 Weight 105.6 kg 101 kg Intake: IV 125 Dextrose 5%-0.45% NaCl 1, 125 000 ml @ 125 mls/hr IV . Q8H [facility] Rx#:[id number] Oral 250 25 Output: Urine 775 Other: Voiding Method Toilet Toilet Toilet # Voids 2 2 2 - Exam GENERAL: The patient is alert and oriented x3, not in any acute distress. Well developed, well nourished. HEENT: Pupils are round and equally reacting to light. EOMI. No scleral icterus. No conjunctival pallor. Normocephalic, atraumatic. No pharyngeal erythema. No thyromegaly. CARDIOVASCULAR: S1 and S2 present. No murmurs, rubs, or gallops. PULMONARY: Chest is clear to auscultation, no wheezing or crackles. -ABDOMEN: Soft, nontender, nondistended, normoactive bowel sounds. No palpable organomegaly. Surgical laparoscopic once R Dalzell and closed MUSCULOSKELETAL: No joint swelling or deformity. EXTREMITIES: No cyanosis, clubbing, or pedal edema. NEUROLOGICAL: Gross neurological examination did not reveal any focal deficits. SKIN: No rashes. no petechiae. - Labs CBC & Chem 7: 10/09/22 03:47 10/09/22 03:47 Labs: Abnormal Lab Results - Last 24 Hours (Table) 10/09/22 10/09/22 Range/Units 01:03 03:47 BUN 18 H (7-17) mg/dL Glucose 131 H (74-99) mg/dL POC Glucose (mg/dL) 130 H (70-110) mg/dL Assessment and Plan Assessment: gastroesophageal reflux disease status post Cristy fundoplication procedure on 10/07/2022. Pulmonary edema related to her history of acute on chronic CHF with ejection fraction of 45% Acute hypoxic respiratory failure secondary to above, improved Chronic atrial fibrillation Chronic headache for more than 20 years as per patient Nicotine dependence COPD, no acute exacerbation Hyperlipidemia Hypertension History of seizure disorder History of sleep apnea Obesity with BMI of 43.3 Plan: Continue with liquid diet Pain management per surgery team Pulmonary and cardiology consult Continue with Lasix Add Norvasc Continue with postop care and management and close monitoring Labs and medication were reviewed.. Continue same treatment. Continue with symptomatic treatment. Resume home medication. Monitor labs and vitals. DVT and GI prophylaxis. Further recommendations as per clinical course of the patient DVT prophylaxis: Subcutaneous heparin GI Prophylaxis: Pepcid PT/OT: Pending Prognosis is guarded Thank you for consulting us, we will follow up with
[2022-10-10] MEDS: hydrALAZINE HCL 20 MG/ML 1 ML VIAL IVP PRN (02:49)
[2022-10-10] MEDS: DEXAMETHASONE SOD PHOSPHATE 4 MG/ML 1 ML VIAL IVP SCH ×2 (05:15→12:46)
[2022-10-10] MEDS: METOCLOPRAMIDE 5 MG/ML 2 ML VIAL IVP SCH ×2 (05:16→12:31)
--- NOTE | 2022-10-10 07:07 | P.PN ---
Subjective HISTORY OF PRESENTING ILLNESS Patient is a pleasant 46-year-old female with history of hypertension, left bundle branch block, nonischemic cardiomyopathy, mild nonobstructive CAD, COPD, tobacco abuse, paroxysmal atrial fibrillation, hyperlipidemia. She follows with Dr. Mendoza. She did have recent workup with heart catheterization May 2022 with FFR of LAD 60% lesion which was normal. She presented for elective hiatal hernia repair 10/07 which was uneventful however postoperatively upon next a patient she had flash pulmonary edema requiring BiPAP and then reintubation. Her blood pressure is extremely elevated 220s over 110s. She was given Lasix with good urine output. She was eventually weaned from the BiPAP and her blood pressure better controlled in the 130s to 140s systolic. She currently is on 4 L nasal cannula. She denies any chest pain however does have pain throughout her throat which is worse with any swallowing or hiccups. 10/09 Patient seen and examined. Patient still having a headache and nauseous and not keeping medications down. Per nursing concern of patient throwing up multiple medications. Blood pressure therefore has been elevated in the 170s to 180s over 110. Denies any chest pain or pressure. Feels her breathing is back to normal. 10/10 Patient seen and examined. Her nausea is somewhat improved and able to tolerate some of her medication. The pressure somewhat improved in the 150s to 160s. Still has a headache. Just attempting to eat food this morning. Denies any chest pain or pressure. No shortness of breath. Norvasc 5 mg was started yesterday and she was given a one-time dose of hydralazine IV overnight. PHYSICAL EXAMINATION Vital signs reviewed. CONSTITUTIONAL: No apparent distress. HEENT: Head is normocephalic. Pupils are equal, round. Sclerae anicteric. Mucous membranes of the mouth are moist. No JVD. No carotid bruit. CHEST EXAMINATION: Lungs are clear to auscultation. No chest wall tenderness is noted on palpation or with deep breathing. HEART EXAMINATION: Regular rate and rhythm. S1, S2 heard. No murmurs, gallops or rub. ABDOMEN: Soft, nontender. Positive bowel sounds. EXTREMITIES: 2+ peripheral pulses, no lower extremity edema and no calf tenderness. NEUROLOGIC EXAMINATION: Patient is awake, alert and oriented x3. ASSESSMENT 1. Acute on chronic diastolic heart failure, EF 50-55% 02/08 likely exacerbated by extreme hypertension. Possibility of negative pressure pulmonary edema post extubation 2. Paroxysmal atrial fibrillation, currently sinus rhythm 3. Hypertension 4. Status post hiatal hernia repair 10/07 5. Coronary artery disease, 60% LAD stenosis catheterization 05/2022 FFR negative 6. Left bundle-branch block 7. History of nonischemic cardiomyopathy, EF improved to 50-55% by most recent echo 01/2022 PLAN Blood pressure mildly better and Norvasc was added. Increase Norvasc to 10. If remains elevated may consider Aldactone. Okay for discharge if blood pressure more controlled in the 150s to 160s with outpatient follow-up. Objective - Vital Signs Vital signs: Vital Signs Temp 97.9 F 10/10/22 04:00 Pulse 69 10/10/22 04:00 Resp 19 10/10/22 04:00 BP 158/88 10/10/22 04:00 Pulse Ox 94 L 10/10/22 04:00 FiO2 40 10/07/22 16:00 Intake & Output 10/09/22 10/10/22 10/10/22 18:59 06:59 18:59 Intake Total 300 Balance 300 Intake: Oral 300 Other: Voiding Method Toilet Toilet # Voids 3 2 - Labs CBC & Chem 7: 10/09/22 03:47 10/09/22 03:47
[2022-10-10] MEDS: HYDROcodone/APAP 5-325MG 1 EACH TAB PO PRN ×2 (07:20→12:38)
[2022-10-10] MEDS ORDERED: amLODIPine 10 MG TAB PO SCH (07:30)
[2022-10-10] MEDS: ALBUTEROL NEBULIZED 2.5 MG/3 ML INHALATION PRN (07:50)
[2022-10-10] MEDS: SYMBICORT 160-4.5 MCG INHALER INHALATION SCH (07:50)
[2022-10-10] MEDS ORDERED: ALPRAZolam 0.25 MG TAB PO PRN (08:25)
[2022-10-10] MEDS: carvediloL 12.5 MG TAB PO SCH (08:58)
[2022-10-10] MEDS ORDERED: hydrALAZINE HCL 25 MG TAB PO SCH (09:00)
[2022-10-10] MEDS ORDERED: amLODIPine 5 MG TAB PO SCH (09:00)
[2022-10-10] MEDS: MAGNESIUM OXIDE 400 MG TAB PO SCH (10:01)
[2022-10-10] MEDS: FAMOTIDINE 20 MG/2 ML VIAL IV SCH (10:01)
[2022-10-10] MEDS: FUROSEMIDE 40 MG TAB PO SCH (10:01)
[2022-10-10] MEDS: ENOXAPARIN 40 MG/0.4 ML SYRINGE SQ SCH (10:01)
[2022-10-10] MEDS: LOSARTAN 50 MG TAB PO SCH (10:01)
--- NOTE | 2022-10-10 11:08 | P.PN ---
Subjective Progress Note Date: 10/10/22 Principal diagnosis: Acute hypoxic respiratory distress secondary to acute systolic congestive heart failure This is a 47-year-old female history of multiple medical problems including nonocclusive coronary artery disease, history of hypertension, atrial fibrillation, patient was scheduled to undergo a hernia surgery back on 09/23/22, however patient developed SVT and hypertension required canceling of the procedure, patient was seen by cardiology at that time, her cardiac medications were readjusted, patient was discharged home, and today she underwent Cristy's fundoplication. Postoperatively the patient was admitted the recovery room, she was extubated, however she developed pulmonary edema, she had to be reintubated, extubated again, and I was asked to see her in consultation. I saw the patient in the recovery room, clearly her chest x-ray showed evidence of pulmonary edema, recommended Lasix, patient is on BiPAP with IPAP of 14 and EPAP of 6, chest x-ray was reviewed, The patient on BiPAP, and I recommended transfer to the ICU. Cardiology consult was reinitiated. Patient is known to have history of nonischemic cardiomyopathy, ejection fraction is normally about 45% her rhythm was mostly sinus rhythm, and the patient was not in distress while on BiPAP. ABG on BiPAP is pending. Reevaluated today on 10/08/22, patient remains in the ICU, feeling much better today, breathing a lot easier. She is on 2 L nasal cannula, her chest x-ray showed significant improvement in her pulmonary edema. Patient is doing well, relatively asymptomatic, off BiPAP this morning. Apparently the patient had recent repeat echocardiogram showing improvement in her LV function, and according to the ginger farmer she had an ejection fraction of 50-55%. Echocardiogram from last January showed good LV function with ejection fraction of 50-55%, echocardiogram from 09/06/21 showed ejection fraction of 40-45%. And there was evidence of moderate mitral regurgitation. At any rate patient did receive Lasix yesterday, improved with Lasix, and did not have to be reintubated. She was on BiPAP yesterday and today she is transitioned to a nasal cannula. I plan to transfer the patient out of the ICU to a cardiac medical floor. CBC is normal, basic metabolic profile is normal renal profile is normal, chest x-ray today is showing no acute process Reevaluated today on 10/09/22, patient is an overflow in the ICU, doing well, asymptomatic, she is on room air, blood pressure remains elevated, and she is back on her oral medication for hypertension. CBC is normal electrolytes are normal renal profile is normal, patient is tolerating full liquids, and the plan is to possibly transfer the patient out of the ICU once a bed is available. Reevaluated today on 10/10/22, patient remains in the ICU, she is an overflow, doing well, the only issue seems to be related to elevated blood pressure. Patient is on multiple medications for high blood pressure, and today I added Apresoline 25 mg by mouth twice a day. Clinically the patient is doing great, I believe the patient could considered for discharge if agreeable by the admitting physician and other consultants. Pulmonary-parker the patient is doing great, no active pulmonary symptoms, no cough no wheezing no shortness of breath no chest pain.CBC is relatively normal electrolytes are normal renal profile is normal Objective - Vital Signs Vital signs: Vital Signs Temp 97.2 F L 10/10/22 09:00 Pulse 57 L 10/10/22 09:00 Resp 10 L 10/10/22 09:00 BP 173/105 10/10/22 09:00 Pulse Ox 94 L 10/10/22 04:00 FiO2 40 10/07/22 16:00 Intake & Output 10/09/22 10/10/22 10/10/22 18:59 06:59 18:59 Intake Total 300 120 Balance 300 120 Intake: Oral 300 120 Other: Voiding Method Toilet Toilet # Voids 3 2 1 - Exam GENERAL EXAM: Revealed 47-year-old female, obese, on room air HEAD: Normocephalic. EENT: PERRLA, CT, nonicteric, neck masses no JVD. CHEST: No chest wall deformity. LUNGS: symmetrical chest expansion clear bilaterally no rhonchi no wheezes CVS: S1 and S2 normal with no audible murmur, regular rhythm. ABDOMEN: No hepatosplenomegaly, normal bowel sounds, no guarding or rigidity. SPINE: No scoliosis or deformity SKIN: No rashes CENTRAL NERVOUS SYSTEM: Alert and oriented 3 focal deficit EXTREMITIES: No clubbing edema or cyanosis psychiatric: Normal mood affect and normal mental status examination - Labs CBC & Chem 7: 10/09/22 03:47 10/09/22 03:47 Assessment and Plan Assessment: Impression: Status post Cristy fundoplication, postoperative day #3 Acute hypoxic respiratory failure secondary to pulmonary edema, differential diagnoses includes acute diastolic congestive heart failure, and very unlikely negative pressure pulmonary edema. Last echocardiogram showed preserved LV function and this was in January paroxysmal atrial fibrillation Obesity. History of underlying COPD. History of obstructive sleep apnea syndrome. History of GERD malformation requiring craniotomy in 2012. Benign essential hypertension Type 2 diabetes Diabetic neuropathy Dyslipidemia Recommendation:Resume home meds. Will add Apresoline today 25 mg by mouth twice a day Continue Norvasc, continue losartan, Consider discharge planning if cleared by other consultants including the surgeon who performed her surgery Will follow as needed Time with Patient: Less than 30
[2022-10-10 11:44] VITALS: BP 181/101; RESP 13; TEMP 97.6
[2022-10-10] MEDS ORDERED: hydrALAZINE HCL 25 MG TAB PO STA (12:22)
--- NOTE | 2022-10-10 13:12 | CDI ---
Documentation Clarification Form Date: 10/10/2022 12:27:53 PM From: Sherri Quintanilla RN CCDS Admit Date: 10/07/2022 08:58:00 AM Patient Name: Sis Richards Visit Number: [id number] Discharge Date: ATTENTION: The Clinical Documentation Specialists (CDI) and [facility] Coding Staff appreciate your assistance in clarifying documentation. Please respond to the clarification below the line at the bottom and electronically sign. The CDI & [facility] Coding staff will review the response and follow-up if needed. Please note: Queries are made part of the Legal Health Record. If you have any questions, please contact the author of this message via ITS. Dr. Berny Barclay Possible postoperative edema at the fundoplication site causing regurgitation is documented 10/09, Surgery Note and patient had Cristy Fundoplication, 10/07. Additional clarification is requested regarding the relationship, if any, that exists between the diagnosis and the procedure. Patients Admitting Diagnosis: GERD Post-Operative Diagnosis: Postoperative edema at the fundoplication site Procedure performed: Cristy Fundoplication History/Risk Factors: 47-year-old female presents to [facility] for elective Cristy Fundoplication. Medical history: COPD, Non-ischemic cardiomyopathy, mild nonobstructive CAD, Tobacco abuse. Paroxysmal atrial fib, Obesity and HTN. 10/08 Cardiology consult. Clinical Indicators: 10/07, VS: B/P 158/74; HR 100; RR 22; SpO2 94% BiPAP. 10/09, Surgical note: possible postoperative edema at the fundoplication site causing the regurgitation. Decadron 4mg IV every 6 hours ordered for postoperative edema. Treatment: 10/08 Decadron 4mg IVP Q6HR ARLINE; clear liquid diet, Incentive spirometer and ambulation. What relationship, if any, exists between the diagnosis of Postoperative edema at the fundoplication site and the procedure: [ ] Postoperative edema at the fundoplication site is a complication of surgical procedure [ ] Postoperative edema at the fundoplication site is related to patients co-morbid condition(s) of [insert co-morbid dxs] & not a complication of the procedure [ ] Other please specify ____ [xxxx ] Unable to determine (Template Last Revised: December 2020) MTDD
--- NOTE | 2022-10-10 14:01 | P.DS ---
Providers Date of admission: 10/07/22 08:58 Expected date of discharge: 10/10/22 Attending physician: Berny Barclay Consults: 10/07/22 08:58 Consult Physician Routine Consulting Provider: David Preston Consult Reason/Comments: Medical management Do you want consulting provider notified?: Yes 10/07/22 10:25 Consult Physician Stat Consulting Provider: Presley De La Garza Consult Reason/Comments: chronic COPD Do you want consulting provider notified?: Yes 10/07/22 11:31 Consult Physician Urgent Consulting Provider: Shree Guerrero Consult Reason/Comments: CHF exacerbation Do you want consulting provider notified?: Yes Primary care physician: [facility] Course: This is a 47-year-old female who underwent laparoscopic re Cristy fundoplication. Patient's postoperative course was complicated with exacerbation of COPD and hypertension. Patient had some minimal dysphagia which responded to IV Decadron therapy. On the day of discharge patient was rogelio ating a full liquid diet. She had no abdominal pain. The medical service had been working on her blood pressure medications. Patient felt well and wished to go home. Procedures: Laparoscopic Cristy fundoplication Patient Condition at Discharge: Good Plan - Discharge Summary Discharge Rx Participant: Yes New Discharge Prescriptions: New Ibuprofen [Motrin] 600 mg PO Q6HR PRN #40 tab PRN Reason: Pain Docusate [Colace] 100 mg PO BID #20 capsule Acetaminophen Tab [Tylenol] 650 mg PO Q6H #30 tab No Action Rizatriptan Benzoate [Rizatriptan] 10 mg PO BID PRN PRN Reason: Migraine Headache carvediloL [Coreg] 25 mg PO BID-W/MEALS Furosemide [Lasix] 40 mg PO DAILY Magnesium 300mg 300 mg PO DAILY Nitroglycerin 0.4 mg SL Q5M PRN PRN Reason: Chest Pain Aspirin/Acetaminophen/Caffeine [Excedrin Extra Strength Caplet] 1 each PO DAILY PRN PRN Reason: migraines Fluticasone Propion/Salmeterol [Advair 500-50 Diskus] 1 puff INHALATION BID Simvastatin [Zocor] 10 mg PO HS Aspirin EC [Ecotrin Low Dose] 81 mg PO W/SUPPER Potassium Chloride ER [K-Dur 20] 20 meq PO DAILY PRN PRN Reason: with water pill Albuterol Inhaler [Ventolin Hfa Inhaler] 1 puff INHALATION Q6H PRN PRN Reason: Shortness Of Breath Losartan Potassium [Cozaar] 100 mg PO BID Apixaban [Eliquis] 5 mg PO BID tab Discharge Medication List Fluticasone Propion/Salmeterol [Advair 500-50 Diskus] 1 puff INHALATION BID 09/06/21 [History] Rizatriptan Benzoate [Rizatriptan] 10 mg PO BID PRN 09/06/21 [History] Simvastatin [Zocor] 10 mg PO HS 09/06/21 [History] Aspirin EC [Ecotrin Low Dose] 81 mg PO W/SUPPER 10/11/21 [History] carvediloL [Coreg] 25 mg PO BID-W/MEALS 10/11/21 [History] Albuterol Inhaler [Ventolin Hfa Inhaler] 1 puff INHALATION Q6H PRN 11/08/21 [History] Furosemide [Lasix] 40 mg PO DAILY 11/08/21 [History] Potassium Chloride ER [K-Dur 20] 20 meq PO DAILY PRN 11/08/21 [History] Losartan Potassium [Cozaar] 100 mg PO BID 01/09/22 [History] Magnesium 300mg 300 mg PO DAILY 06/06/22 [History] Apixaban [Eliquis] 5 mg PO BID tab 06/11/22 [Rx] Nitroglycerin 0.4 mg SL Q5M PRN 08/20/22 [History] Aspirin/Acetaminophen/Caffeine [Excedrin Extra Strength Caplet] 1 each PO DAILY PRN 10/02/22 [History] Acetaminophen Tab [Tylenol] 650 mg PO Q6H #30 tab 10/10/22 [Rx] Docusate [Colace] 100 mg PO BID #20 capsule 10/10/22 [Rx] Ibuprofen [Motrin] 600 mg PO Q6HR PRN #40 tab 10/10/22 [Rx] Follow up Appointment(s)/Referral(s): Berny Barclay MD [STAFF PHYSICIAN] - 1 Week Discharge/Stand Alone Forms: Who Do I Call?, Community Resources, Outpatient Counseling Discharge Disposition: HOME SELF-CARE
[2022-10-10 16:18] VITALS: PULSE 57
[2022-10-10] MEDS ORDERED: hydrALAZINE HCL 50 MG TAB PO SCH (21:00)
--- NOTE | 2022-10-16 11:56 | P.PN ---
Subjective This is a pleasant 47 years old female with multiple medical problems as below including CHF, atrial fibrillation and COPD with nicotine dependence. Was admitted for gastroesophageal reflux disease status post Cristy fundoplication procedure on 10/07/2022. Today is postoperative day #1. Postoperatively patient developed interstitial edema requiring BiPAP at IV Lasix with close monitoring in the ICU. Pulmonary and cardiology team both evaluated the patient. Her ejection fraction 45%. Today she is fully awake and oriented She denies chest pain or dyspnea while sitting in bed. No significant coughing. No abdominal pain or vomiting. No bowel movement yet. Olson catheter in place. No dizziness or weakness. No numbness or tingling or blurred vision. Patient states that she has headache this morning but thus every day for many years. She smokes 2 packs per day and she was counseled, she declines nicotine patch. No alcohol or illicit tracts Vitals stable, blood pressure is slightly elevated. She is saturating 96% on room air. Not tachypneic review showing unremarkable CBC and BMP 10/09/2022 Patient is breathing quietly, she does not need the BiPAP and he saturating well on room air. That she states she has a rough night because she could not tolerate liquid diet and she has painful pickups and she vomited about 5-6 time, she has poor appetite because of that. She states that Zofran did not help much but she declined other anti emetic medication when I offered to her. Blood pressure is uncontrolled probably secondary to the dexamethasone We will add Norvasc for tomorrow. Labs are stable Other blood pressure medications including Coreg losartan and oral Lasix 10/10/2022 Patient is generally doing well, no new symptoms. He tolerates diet well. No other minimal abdominal pain. No diarrhea. No chest pain or dyspnea. No headache or weakness or numbness. Patient remains on steroids which contributes to high blood pressure. Norvasc was added and increased to 10 mg. Apartment Groundskeeper and pulmonary team of the case. Patient states that he is going home today no matter what. Patient is eager to go home. Objective - Vital Signs Vital signs: Vital Signs Temp 97.6 F 10/10/22 11:39 Pulse 58 L 10/10/22 11:39 Resp 13 10/10/22 11:39 BP 181/101 10/10/22 11:39 Pulse Ox 93 L 10/10/22 11:39 FiO2 40 10/07/22 16:00 Intake & Output 10/09/22 10/10/22 10/10/22 18:59 06:59 18:59 Intake Total 300 120 Balance 300 120 Intake: Oral 300 120 Other: Voiding Method Toilet Toilet Toilet # Voids 3 2 1 - Exam GENERAL: The patient is alert and oriented x3, not in any acute distress. Well developed, well nourished. HEENT: Pupils are round and equally reacting to light. EOMI. No scleral icterus. No conjunctival pallor. Normocephalic, atraumatic. No pharyngeal erythema. No thyromegaly. CARDIOVASCULAR: S1 and S2 present. No murmurs, rubs, or gallops. PULMONARY: Chest is clear to auscultation, no wheezing or crackles. -ABDOMEN: Soft, nontender, nondistended, normoactive bowel sounds. No palpable organomegaly. Surgical laparoscopic once R Matthews and closed MUSCULOSKELETAL: No joint swelling or deformity. EXTREMITIES: No cyanosis, clubbing, or pedal edema. NEUROLOGICAL: Gross neurological examination did not reveal any focal deficits. SKIN: No rashes. no petechiae. - Labs CBC & Chem 7: 10/09/22 03:47 10/09/22 03:47 Assessment and Plan Assessment: gastroesophageal reflux disease status post Cristy fundoplication procedure on 10/07/2022. Pulmonary edema related to her history of acute on chronic CHF with ejection fraction of 45% Acute hypoxic respiratory failure secondary to above, improved Chronic atrial fibrillation Chronic headache for more than 20 years as per patient Nicotine dependence COPD, no acute exacerbation Hyperlipidemia Hypertension History of seizure disorder History of sleep apnea Obesity with BMI of 43.3 Plan: Continue with liquid diet Pain management per surgery team Pulmonary and cardiology consult Continue with Lasix Add Norvasc 10 mg Continue with postop care and management and close monitoring Labs and medication were reviewed.. Continue same treatment. Continue with symptomatic treatment. Resume home medication. Monitor labs and vitals. DVT and GI prophylaxis. Further recommendations as per clinical course of the patient DVT prophylaxis: Subcutaneous heparin GI Prophylaxis: Pepcid patient is okay to be discharged per mail superintendent if systolic blood pressures and range of 150-160 Thank you for consulting us
== END 2022-10-10 16:10 | disposition home or self-care (01) | DRG 326 ==
LOC: OR 06:36 → 2SICU 08:45 → OR 08:58 → 2SICU 08:58
PROVIDERS: ADMIT Surgery; ATTEND Surgery
PROC: 5A09357 Assistance with Respiratory Ventilation, Less than 24 Consecutive Hours, Continuous Positive Airway Pressure (ICD-10-PCS; 2022-10-07)
PROC: 0DV44ZZ Restriction of Esophagogastric Junction, Percutaneous Endoscopic Approach (ICD-10-PCS; principal; 2022-10-07 07:40)
PROC: 0BQT4ZZ Repair Diaphragm, Percutaneous Endoscopic Approach (ICD-10-PCS; principal; 2022-10-07 07:40)
DX: K21.9 Gastro-esophageal reflux disease without esophagitis (principal); I50.33 Acute on chronic diastolic (congestive) heart failure; J96.01 Acute respiratory failure with hypoxia; I42.8 Other cardiomyopathies; Z68.41 Body mass index [BMI] 40.0-44.9, adult; J44.1 Chronic obstructive pulmonary disease with (acute) exacerbation; I11.0 Hypertensive heart disease with heart failure; E11.40 Type 2 diabetes mellitus with diabetic neuropathy, unspecified; I48.0 Paroxysmal atrial fibrillation; Z28.310 Unvaccinated for COVID-19; E66.9 Obesity, unspecified; E78.5 Hyperlipidemia, unspecified; K44.9 Diaphragmatic hernia without obstruction or gangrene; I34.0 Nonrheumatic mitral (valve) insufficiency; I44.7 Left bundle-branch block, unspecified; G47.33 Obstructive sleep apnea (adult) (pediatric); M54.81 Occipital neuralgia; I25.10 Atherosclerotic heart disease of native coronary artery without angina pectoris; K64.9 Unspecified hemorrhoids; R13.10 Dysphagia, unspecified; F17.210 Nicotine dependence, cigarettes, uncomplicated; Z71.6 Tobacco abuse counseling; Z79.01 Long term (current) use of anticoagulants; Z79.82 Long term (current) use of aspirin; Z79.51 Long term (current) use of inhaled steroids; Z79.899 Other long term (current) drug therapy; Z87.11 Personal history of peptic ulcer disease; Z87.442 Personal history of urinary calculi; Z87.01 Personal history of pneumonia (recurrent); Z86.16 Personal history of COVID-19; Z71.3 Dietary counseling and surveillance; Z88.5 Allergy status to narcotic agent; Z88.8 Allergy status to other drugs, medicaments and biological substances; Z91.018 Allergy to other foods
CPT/HCPCS: 36600; 71045; 80048; 81025; 82805; 85025; 94002; 94640; 94660

== ENCOUNTER 2023-03-28 23:11 | Emergency (ER) | payer OTHER ==
[2023-03-28 23:37] VITALS: TEMP 98.2
[2023-03-29] MEDS ORDERED: DIPH,PERTUS(ACELL)TETVAC-LF 0.5 ML VIAL IM ONE (00:24)
--- NOTE | 2023-03-29 00:58 | ED ---
Lower Extremity Injury HPI - General Chief Complaint: Extremity Injury, Lower Stated Complaint: Nail in right foot Time Seen by Provider: 03/28/23 23:40 Source: patient, RN notes reviewed Mode of arrival: ambulatory Limitations: no limitations - History of Present Illness Initial Comments: This is a 47-year-old female who presents to the emergency department after stepping on a nail with her right foot. States that she was outside in a field when this happened. The nail was approximately 3-4 inches long. She removed the nail and soaked her foot in water and put antibiotic ointment on it. States that it is difficult to put pressure on the foot secondary to pain. Unsure when her last tetanus vaccine was. Denies any fevers, chills, sore throat, cough, dyspnea, chest pain, palpitations, abdominal pain, nausea, vomiting, diarrhea, back pain, or headaches. - Related Data Home Medications Medication Instructions Recorded Confirmed Fluticasone Propion/Salmeterol 1 puff INHALATION BID 09/06/21 10/02/22 [Advair 500-50 Diskus] Rizatriptan Benzoate [Rizatriptan] 10 mg PO BID PRN 09/06/21 10/02/22 Simvastatin [Zocor] 10 mg PO HS 09/06/21 10/02/22 Aspirin EC [Ecotrin Low Dose] 81 mg PO W/SUPPER 10/11/21 10/02/22 carvediloL [Coreg] 25 mg PO BID-W/MEALS 10/11/21 10/02/22 Albuterol Inhaler [Ventolin Hfa 1 puff INHALATION Q6H PRN 11/08/21 10/02/22 Inhaler] Furosemide [Lasix] 40 mg PO DAILY 11/08/21 10/02/22 Potassium Chloride ER [K-Dur 20] 20 meq PO DAILY PRN 11/08/21 10/02/22 Losartan Potassium [Cozaar] 100 mg PO BID 01/09/22 10/02/22 Magnesium 300mg 300 mg PO DAILY 06/06/22 10/02/22 Nitroglycerin 0.4 mg SL Q5M PRN 08/20/22 10/02/22 Aspirin/Acetaminophen/Caffeine 1 each PO DAILY PRN 10/02/22 10/02/22 [Excedrin Extra Strength Caplet] Previous Rx's Medication Instructions Recorded Apixaban [Eliquis] 5 mg PO BID tab 06/11/22 Acetaminophen Tab [Tylenol] 650 mg PO Q6H #30 tab 10/10/22 Docusate [Colace] 100 mg PO BID #20 capsule 10/10/22 Ibuprofen [Motrin] 600 mg PO Q6HR PRN #40 tab 10/10/22 amLODIPine [Norvasc] 10 mg PO DAILY #30 tab 10/10/22 Allergies Allergy/AdvReac Type Severity Reaction Status Date / Time pregabalin [From Lyrica] Allergy Unknown Rash/Hives Verified 03/28/23 23:37 acetylcysteine Allergy Swelling Verified 03/28/23 23:37 hydromorphone HCl AdvReac headache Verified 03/28/23 23:37 [From Dilaudid] BERRIES Allergy Anaphylaxis Uncoded 03/28/23 23:37 Review of Systems ROS Statement: Those systems with pertinent positive or pertinent negative responses have been documented in the HPI. ROS Other: All systems not noted in ROS Statement are negative. Past Medical History Past Medical History: Atrial Fibrillation, Heart Failure, COPD, GERD/Reflux, Hyperlipidemia, Hypertension, Pneumonia, Seizure Disorder, Sleep Apnea/CPAP/BIPAP Additional Past Medical History / Comment(s): Hx multiple kidney stones. Hx Pneumonia, vented-2011. Peptic ulcers. Sleep apnea-no device use. Bilateral Occipital Neuritis, headaches, vertigo. Neuropathy and edema bilateral lower legs, "legs give out at times". had brain surg. for convulsions 2012, still has "mini seizures daily", Hx diverticulitis, colon polyps and hemorrhoids. +Covid 11/08/21, mild symptoms, antibody treatment. CTS enrique History of Any Multi-Drug Resistant Organisms: None Reported Past Surgical History: Cholecystectomy, Heart Catheterization, Hernia Repair Additional Past Surgical History / Comment(s): Brain surgery in 2013 for seizures and headaches, right ovary/tube removed, D&C, Picc Line insertion and removal, kidney stone surgically removed, cystoscopy with ureteral stent, lithotripsy, Laproscopic Cristy Fundoplasty, colonoscopy, recent EGD Past Anesthesia/Blood Transfusion Reactions: No Reported Reaction, Motion Sickness Additional Past Anesthesia/Blood Transfusion Reaction / Comment(s): "Pulmonary edema during kidney surgery, was in induced coma for 3 days". Past Psychological History: Anxiety Smoking Status: Current every day smoker Past Alcohol Use History: None Reported Past Drug Use History: Marijuana - Past Family History Father Family Medical History: AFIB, Diabetes Mellitus, Hypertension Additional Family Medical History / Comment(s): Pacemaker. Mother Family Medical History: Cancer Additional Family Medical History / Comment(s): of pancreatic cancer at the age of 58yrs. Maternal cousin had pancreatic cancer. Maternal uncle had lung cancer. Sister(s) Family Medical History: AICD/Pacemaker Additional Family Medical History / Comment(s): the patient has one sister with AICD. Second sister has no major medical problems. Patient's 1 brother that is healthy. Patient has one son and one daughter with no major medical problems. General Exam Limitations: no limitations General appearance: alert, in no apparent distress Head exam: Present: atraumatic, normocephalic, normal inspection Respiratory exam: Present: normal lung sounds bilaterally. Absent: respiratory distress, wheezes, rales, rhonchi, stridor Cardiovascular Exam: Present: regular rate, normal rhythm, normal heart sounds. Absent: systolic murmur, diastolic murmur, rubs, gallop, clicks Extremities exam: Present: other (Puncture wound to the middle bottom of the right foot. No active bleeding. Surrounding tenderness.) Neurological exam: Present: alert, oriented X3, CN II-XII intact Psychiatric exam: Present: normal affect, normal mood Course Vital Signs 03/28/23 03/29/23 23:33 02:25 Temperature 98.2 F 98.2 F Pulse Rate 76 66 Respiratory 18 20 Rate Blood Pressure 161/101 164/90 O2 Sat by Pulse 96 98 Oximetry Medical Decision Making - Medical Decision Making This is a 47-year-old female who presents to the emergency department after stepping on a nail with her right foot. Was pt. sent in by a medical professional or institution? @ -No Did you speak to anyone other than the patient for history? @ -No Did you review nursing and triage notes? @ -Yes, and I agree, it is accurate with regards to the patient's symptoms. Were old charts reviewed? @ -No Differential Diagnosis? @ -Not applicable EKG interpreted by me (3pts min.)? @ -Not obtained X-rays interpreted by me (1pt min.)? @ -X-ray of the right foot obtained. My interpretation identifies no residual foreign bodies or fractures. CT interpreted by me (1pt min.)? @ -Not obtained U/S interpreted by me (1pt. min.)? @ -Not obtained What testing was considered but not performed? (CT, X-rays, U/S, labs)? Why? @ -None What meds were considered but not given? Why? @ -None Did you discuss the management of the patient with other professionals? @ -No Did you reconcile home meds? @ -No Was smoking cessation discussed for >3mins.? @ -No Was critical care preformed (if so, how long)? @ -No Were there social determinants of health that impacted care today? How? (Homelessness, low income, unemployed, alcoholism, drug addiction, transportation, low edu. Level, literacy, decrease access to med. care, half-way, rehab)? @ -No Was there de-escalation of care discussed even if they declined? (Discuss DNR or withdrawal of care, Hospice)? @ -No What co-morbidities impacted this encounter? (DM, HTN, Smoking, COPD, CAD, Cancer, CVA, Hep., AIDS, mental health diagnosis, sleep apnea, morbid obesity)? @ -None Was patient admitted / discharged? @ -Discharged. Given how deep the nail penetrated the foot, x-ray of the right foot obtained. This revealed no acute findings. Her foot was soaked in a bucket of water for approximately 25 minutes. Tetanus status was updated as well. Otherwise advised ibuprofen and Tylenol as needed for pain relief. She was also given a postoperative shoe to help with ambulation. Undiagnosed new problem with uncertain prognosis? @ -None Drug Therapy requiring intensive monitoring for toxicity (Heparin, Nitro, Insulin, Cardizem)? @ -None Were any procedures done? @ -None Diagnosis/symptom? @ -Puncture wound, right foot Acute, or Chronic, or Acute on Chronic? @ -Acute Uncomplicated (without systemic symptoms) or Complicated (systemic symptoms)? @ -Uncomplicated Side effects of treatment? @ -None Exacerbation, Progression, or Severe Exacerbation] @ -Not applicable Poses a threat to life or bodily function? @ -No Return precautions reviewed in depth, the patient is instructed to return to the emergency department with any new, worsening, or concerning symptoms. Patient verbalized understanding. This case was discussed in detail with the attending ED physician, Dr. Nova. Presentation, findings, and treatment plan discussed in detail as well. - Radiology Data Radiology results: report reviewed, image reviewed Disposition Clinical Impression: Puncture wound of right foot Disposition: HOME SELF-CARE Instructions (If sedation given, give patient instructions): Puncture Wound in the Foot (ED) Additional Instructions: Return to the emergency department with any new, worsening, or concerning sympto ms. Alternate with Ibuprofen and Tylenol as needed for pain relief. Follow up with your primary care provider in 1-2 days. Is patient prescribed a controlled substance at d/c from ED?: No Referrals: James Harvey DO [Primary Care Provider] - 1-2 days
--- NOTE | 2023-03-29 01:24 | XR ---
EXAM: XR Right Foot Complete, 3 or More Views CLINICAL HISTORY: ITS.REASON XR Reason: stepped on a nail TECHNIQUE: Frontal, lateral and oblique views of the right foot. COMPARISON: No relevant prior studies available. FINDINGS: Bones/joints: Large calcaneal heel spur. Soft tissues: Mild enthesopathy at the insertion of the Achilles tendon. No radiopaque foreign body. IMPRESSION: No acute findings in the right foot.
[2023-03-29] MEDS ORDERED: ACET/COD 300 MG/30 MG STARTER PACK 6 TAB BTL PO STA (02:03)
[2023-03-29] MEDS ORDERED: IBUPROFEN 600 MG STARTER PACK 4 TAB BTL PO STA (02:03)
[2023-03-29 02:26] VITALS: BP 164/90; PULSE 66; RESP 20
== END 2023-03-29 02:26 | disposition home or self-care (01) ==
LOC: EC 23:11
DX: S91.331A Puncture wound without foreign body, right foot, initial encounter (principal); I48.91 Unspecified atrial fibrillation; J44.9 Chronic obstructive pulmonary disease, unspecified; K21.9 Gastro-esophageal reflux disease without esophagitis; E78.5 Hyperlipidemia, unspecified; I11.0 Hypertensive heart disease with heart failure; I50.9 Heart failure, unspecified; F41.9 Anxiety disorder, unspecified; F17.200 Nicotine dependence, unspecified, uncomplicated; F12.90 Cannabis use, unspecified, uncomplicated; Z86.16 Personal history of COVID-19; Z88.5 Allergy status to narcotic agent; Z91.018 Allergy to other foods; Z88.8 Allergy status to other drugs, medicaments and biological substances; Z79.82 Long term (current) use of aspirin; Z79.01 Long term (current) use of anticoagulants; Z79.51 Long term (current) use of inhaled steroids; Z79.899 Other long term (current) drug therapy; Z23 Encounter for immunization; W45.0XXA Nail entering through skin, initial encounter
CPT/HCPCS: 90471; 90715; 99283

== ENCOUNTER 2023-12-06 22:10 | Emergency (ER) | payer OTHER ==
[2023-12-06 22:29] VITALS: TEMP 98.4
[2023-12-06] MEDS: ACETAMINOPHEN TAB 500 MG TAB PO STA (22:48)
--- NOTE | 2023-12-06 23:10 | XR ---
EXAM: XR Chest, 2 Views CLINICAL HISTORY: Chest Pain TECHNIQUE: Frontal and lateral views of the chest. COMPARISON: 10/08/2022. FINDINGS: Lungs: No consolidation. No atelectasis. Pulmonary vessels top normal in caliber. Pleural space: No pleural effusion. No pneumothorax. Heart: No cardiomegaly. Mediastinum: Unremarkable. Normal mediastinal contour. Bones/joints: Unremarkable. No acute fracture. IMPRESSION: Pulmonary vessels top normal caliber. Otherwise negative.
[2023-12-06 23:23] LABS: Basophils # (A) 0.1 k/uL (0-0.2); Basophils % (A) 1 %; Eosinophils # (A) 0.2 k/uL (0-0.7); Eosinophils % (A) 4 %; HCT 47.5 % (34.0-46.0); HGB 15.8 gm/dL (11.4-16.0); Lymphocytes # (A) 3.1 k/uL (1.0-4.8); Lymphocytes % (A) 55 %; MCH 29.9 pg (25.0-35.0); MCHC 33.4 g/dL (31.0-37.0); MCV 89.7 fL (80.0-100.0); Mean Platelet Volume 8.1; Monocytes # (A) 0.3 k/uL (0-1.0); Monocytes % (A) 5 %; Neutrophils # (A) 1.9 k/uL (1.3-7.7); Neutrophils % (A) 33 %; Platelet Count 182 k/uL (150-450); RBC 5.29 m/uL (3.80-5.40); WBC 5.8 k/uL (3.8-10.6)
[2023-12-06 23:35] LABS: INR 0.9 (<1.2); Partial Thromboplastin Time 24.4 sec (22.0-30.0); Prothrombin Time 10.4 sec (10.0-12.5)
[2023-12-06 23:47] LABS: ALT 20 U/L (4-34); AST 27 U/L (14-36); African American GFR (CKD) >90 (>60 ml/min/1.73 sqM); Albumin 4.4 g/dL (3.5-5.0); Alkaline Phosphatase 83 U/L (38-126); Anion Gap 10 mmol/L; Blood Urea Nitrogen 16 mg/dL (7-17); Calcium 9.2 mg/dL (8.4-10.2); Carbon Dioxide 21 mmol/L (22-30); Chloride 109 mmol/L (98-107); Glucose 96 mg/dL (74-99); Magnesium 1.8 mg/dL (1.6-2.3); Non-African American GFR(CKD) >90 (>60 ml/min/1.73 sqM); Potassium 4.7 mmol/L (3.5-5.1); Sodium 140 mmol/L (137-145); Total Bilirubin 0.5 mg/dL (0.2-1.3); Total Protein 7.3 g/dL (6.3-8.2)
[2023-12-07 00:09] LABS: Appearance,Urine Clear (Clear); Bilirubin,Urine Negative (Negative); Blood,Urine Negative (Negative); Color,Urine Colorless; Glucose,Urine (UA) Negative (Negative); Ketones,Urine Negative (Negative); Leukocyte Esterase,Urine Negative (Negative); Nitrite,Urine Negative (Negative); PH, Urine 5.5 (5.0-8.0); Protein,Urine Negative (Negative); Specific Gravity,Urine 1.005 (1.001-1.035); Urobilinogen,Urine <2.0 mg/dL (<2.0)
--- NOTE | 2023-12-07 00:40 | ED ---
Chest Pain HPI - General Chief Complaint: Chest Pain Stated Complaint: chest pain Time Seen by Provider: 12/06/23 22:21 Source: patient Mode of arrival: ambulatory Limitations: no limitations - History of Present Illness Initial Comments: 48-year-old female presenting to the ED with a chief complaint of chest pain. 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 Patient states while working tonight started to experience a shooting pain of her back. States she had 2 episodes of this. Reports that this shortly resolved after but then started to experience shooting pain across and up and down her chest. Patient reports pain is worse with movement. No shortness of breath or palpitations with this. No dizziness. No nausea or vomiting. No abdominal pain. No other complaints at this time. - Related Data Home Medications Medication Instructions Recorded Confirmed Fluticasone Propion/Salmeterol 1 puff INHALATION BID 09/06/21 10/02/22 [Advair 500-50 Diskus] Rizatriptan Benzoate [Rizatriptan] 10 mg PO BID PRN 09/06/21 10/02/22 Simvastatin [Zocor] 10 mg PO HS 09/06/21 10/02/22 Aspirin EC [Ecotrin Low Dose] 81 mg PO W/SUPPER 10/11/21 10/02/22 carvediloL [Coreg] 25 mg PO BID-W/MEALS 10/11/21 10/02/22 Albuterol Inhaler [Ventolin Hfa 1 puff INHALATION Q6H PRN 11/08/21 10/02/22 Inhaler] Furosemide [Lasix] 40 mg PO DAILY 11/08/21 10/02/22 Potassium Chloride ER [K-Dur 20] 20 meq PO DAILY PRN 11/08/21 10/02/22 Losartan Potassium [Cozaar] 100 mg PO BID 01/09/22 10/02/22 Magnesium 300mg 300 mg PO DAILY 06/06/22 10/02/22 Nitroglycerin 0.4 mg SL Q5M PRN 08/20/22 10/02/22 Aspirin/Acetaminophen/Caffeine 1 each PO DAILY PRN 10/02/22 10/02/22 [Excedrin Extra Strength Caplet] Previous Rx's Medication Instructions Recorded Apixaban [Eliquis] 5 mg PO BID tab 06/11/22 Acetaminophen Tab [Tylenol] 650 mg PO Q6H #30 tab 10/10/22 Docusate [Colace] 100 mg PO BID #20 capsule 10/10/22 Ibuprofen [Motrin] 600 mg PO Q6HR PRN #40 tab 10/10/22 amLODIPine [Norvasc] 10 mg PO DAILY #30 tab 10/10/22 Allergies Allergy/AdvReac Type Severity Reaction Status Date / Time pregabalin [From Lyrica] Allergy Unknown Rash/Hives Verified 12/06/23 22:15 acetylcysteine Allergy Swelling Verified 12/06/23 22:15 hydromorphone HCl AdvReac headache Verified 12/06/23 22:15 [From Dilaudid] BERRIES Allergy Anaphylaxis Uncoded 12/06/23 22:15 Review of Systems ROS Statement: Those systems with pertinent positive or pertinent negative responses have been documented in the HPI. ROS Other: All systems not noted in ROS Statement are negative. Past Medical History Past Medical History: Atrial Fibrillation, Heart Failure, COPD, GERD/Reflux, Hyperlipidemia, Hypertension, Pneumonia, Seizure Disorder, Sleep Apne a/CPAP/BIPAP Additional Past Medical History / Comment(s): Hx multiple kidney stones. Hx Pneumonia, vented-2011. Peptic ulcers. Sleep apnea-no device use. Bilateral Occipital Neuritis, headaches, vertigo. Neuropathy and edema bilateral lower legs, "legs give out at times". had brain surg. for convulsions 2012, still has "mini seizures daily", Hx diverticulitis, colon polyps and hemorrhoids. +Covid 11/08/21, mild symptoms, antibody treatment. CTS enrique History of Any Multi-Drug Resistant Organisms: None Reported Past Surgical History: Cholecystectomy, Heart Catheterization, Hernia Repair Additional Past Surgical History / Comment(s): Brain surgery in 2012 for seizures and headaches, right ovary/tube removed, D&C, Picc Line insertion and removal, kidney stone surgically removed, cystoscopy with ureteral stent, lithotripsy, Laproscopic Cristy Fundoplasty, colonoscopy, recent EGD Past Anesthesia/Blood Transfusion Reactions: No Reported Reaction, Motion Sickness Additional Past Anesthesia/Blood Transfusion Reaction / Comment(s): "Pulmonary edema during kidney surgery, was in induced coma for 3 days". Past Psychological History: Anxiety Smoking Status: Current every day smoker Past Alcohol Use History: None Reported Past Drug Use History: Marijuana - Past Family History Father Family Medical History: AFIB, Diabetes Mellitus, Hypertension Additional Family Medical History / Comment(s): Pacemaker. Mother Family Medical History: Cancer Additional Family Medical History / Comment(s): of pancreatic cancer at the age of 58yrs. Maternal cousin had pancreatic cancer. Maternal uncle had lung cancer. Sister(s) Family Medical History: AICD/Pacemaker Additional Family Medical History / Comment(s): the patient has one sister with AICD. Second sister has no major medical problems. Patient's 1 brother that is healthy. Patient has one son and one daughter with no major medical problems. General Exam Limitations: no limitations General appearance: alert, in no apparent distress Eye exam: Present: normal appearance Neck exam: Present: normal inspection Respiratory exam: Present: normal lung sounds bilaterally Cardiovascular Exam: Present: regular rate, normal rhythm, other (Patient does have reproducible point tenderness to palpation at the sternum.) GI/Abdominal exam: Present: soft Back exam: Present: other (Reproducible point tenderness to palpation around the level of the scapula a bilaterally.) Neurological exam: Present: alert, oriented X3 Skin exam: Present: warm, dry Course Vital Signs 12/06/23 12/07/23 22:13 00:00 Temperature 98.4 F Pulse Rate 85 75 Respiratory 18 17 Rate Blood Pressure 165/70 144/101 O2 Sat by Pulse 99 Oximetry Chest Pain MDM - MDM Was pt. sent in by a medical professional or institution (CASIMIRO Franks, ECHOCARDIOGRAPHY TECHNOLOGIST, urgent ca re, hospital, or [facility]...) When possible be specific @ -No Did you speak to anyone other than the patient for history (EMS, parent, family, police, friend...)? What history was obtained from this source @ -No Did you review nursing and triage notes (agree or disagree)? Why? @ -I reviewed and agree with nursing and triage notes Were old charts reviewed (outside hosp., previous admission, EMS record, old EKG, old radiological studies, urgent care reports/EKG's, [facility] records)? Report findings @ -Old charts reviewed showing history of left bundle branch block. Differential Diagnosis (chest pain, altered mental status, abdominal pain women, abdominal pain men, vaginal bleeding, weakness, fever, dyspnea, syncope, headache, dizziness, GI bleed, back pain, seizure, CVA, palpatations, mental health, musculoskeletal)? @ -Differential Chest Pain: Stable Angina, Unstable Angina, STEMI, NSTEMI Aortic Dissection, Pneumothorax, Musculoskeletal, Esophageal Spasm GERD, Cholecystitis, Pancreatitis, Zoster, this is not meant to be an all-inclusive list. EKG interpreted by me (3pts min.). @ -EKG interpreted me showing a sinus rhythm at 69 bpm with nonspecific changes. Does appear to have a left bundle which appears similar to prior. OH 162, QRS 150, QT/QTc 437/456. X-rays interpreted by me (1pt min.). @ -Chest x-ray interpreted me showing no evidence of acute finding CT interpreted by me (1pt min.). @ -None done U/S interpreted by me (1pt. min.). @ -None done What testing was considered but not performed or refused? (CT, X-rays, U/S, labs)? Why? @ -None What meds were considered but not given or refused? Why? @ -None Did you discuss the management of the patient with other professionals (professionals i.e. , PA, ECHOCARDIOGRAPHY TECHNOLOGIST, lab, RT, psych nurse, social work associate, it integration architect, teacher, officer lieutenant, insurance case manager)? Give summary @ -No Was smoking cessation discussed for >3mins.? @ -No Was critical care preformed (if so, how long)? @ -No Were there social determinants of health that impacted care today? How? (Homelessness, low income, unemployed, alcoholism, drug addiction, transportation, low edu. Level, literacy, decrease access to med. care, prison, rehab)? @ -No Was there de-escalation of care discussed even if they declined (Discuss DNR or withdrawal of care, Hospice)? DNR status @ -No What co-morbidities impacted this encounter? (DM, HTN, Smoking, COPD, CAD, Cancer, CVA, ARF, Chemo, Hep., AIDS, mental health diagnosis, sleep apnea, morbid obesity)? @ -COPD, CHF Was patient admitted / discharged? Hospital course, mention meds given and route, prescriptions, significant lab abnormalities, going to OR and other pertinent info. @ -Discharge 48-year-old female presenting to the ED with a chief complaint of shoulder and chest pain. Exam did show reproducible tenderness to palpation. Laboratory studies reviewed. Laboratory studies unremarkable including initial troponin. At this time patient was offered observation to have evaluation by cardiology. Additionally, patient was to get serial troponin however at this time patient reports that she feels significantly improved after dose of Tylenol here in the ED and would instead like to go home. Discussed risks of this, including not receiving serial troponin and/or evaluation by cardiology and patient verbalized understanding. Patient verbalized she will follow-up with her PCP. Discussed return precautions with patient and family who both verbalized understanding as well. Undiagnosed new problem with uncertain prognosis? @ -No Drug Therapy requiring intensive monitoring for toxicity (Heparin, Nitro, Insulin, Cardizem)? @ -No Were any procedures done? @ -No Diagnosis/symptom? @ -Shoulder pain, chest pain Acute, or Chronic, or Acute on Chronic? @ -Acute Uncomplicated (without systemic symptoms) or Complicated (systemic symptoms)? @ -Uncomplicated Side effects of treatment? @ -No Exacerbation, Progression, or Severe Exacerbation? @ -No Poses a threat to life or bodily function? How? (Chest pain, [place], [place], pneumonia, PE, COPD, DKA, ARF, appy, cholecystitis, CVA, Diverticulitis, Homicidal, Suicidal, threat to staff... and all critical care pts) @ -No Disposition Clinical Impression: Chest pain, Shoulder pain Disposition: HOME SELF-CARE Condition: Good Instructions (If sedation given, give patient instructions): Chest Pain (ED) Additional Instructions: Please return to the Emergency Department if symptoms worsen or any other concerns. Please follow-up with your PCP. Is patient prescribed a controlled substance at d/c from ED?: No Referrals: James Harvey DO [Primary Care Provider] - 1-2 days Time of Disposition: 00:23
[2023-12-07 01:23] VITALS: BP 96/68; PULSE 81; RESP 19
== END 2023-12-07 01:16 | disposition home or self-care (01) ==
LOC: EC 22:10
DX: M25.519 Pain in unspecified shoulder (principal); R07.9 Chest pain, unspecified; I11.0 Hypertensive heart disease with heart failure; I50.9 Heart failure, unspecified; I48.91 Unspecified atrial fibrillation; J44.9 Chronic obstructive pulmonary disease, unspecified; K21.9 Gastro-esophageal reflux disease without esophagitis; E78.5 Hyperlipidemia, unspecified; G47.30 Sleep apnea, unspecified; F41.9 Anxiety disorder, unspecified; F12.90 Cannabis use, unspecified, uncomplicated; F17.200 Nicotine dependence, unspecified, uncomplicated; Z79.82 Long term (current) use of aspirin; Z79.899 Other long term (current) drug therapy; Z91.018 Allergy to other foods; Z88.8 Allergy status to other drugs, medicaments and biological substances
CPT/HCPCS: 36415; 71046; 80053; 81003; 83735; 84484; 85025; 85610; 85730; 93005; 99285

== ENCOUNTER 2024-06-27 22:59 | Inpatient (IN) | payer OTHER ==
[2024-06-27 23:02] LABS: Glucose,Whole Blood 109 mg/dL (70-110)
--- NOTE | 2024-06-27 23:22 | ED ---
Neuro HPI - General Chief Complaint: Neuro Symptoms/Deficit Stated Complaint: Stroke Time Seen by Provider: 06/27/24 23:01 Source: patient, RN notes reviewed, old records reviewed Mode of arrival: wheelchair Limitations: altered mental status - History of Present Illness Is the patient presenting with stroke symptoms?: Yes -: hour(s) (2129) Initial Comments: This is a 48-year-old female presenting with acute neurological dysfunction. Patient is having difficulty with all neurological tasks following direction. The symptoms started when she was with her about a hour and a half ago which also had confusion nausea vomiting at that time she was concern for hypertension and she is severely weak and anxious Location: speech, right face, dysarthria, left arm, right arm, left leg, right leg, altered History of same: No Place: home Severity: severe Improves With: none Worsens With: none Context: sudden onset Associated Symptoms: confusion Treatments Prior to Arrival: none - Related Data Home Medications: Previous Rx's Medication Instructions Recorded Acetaminophen Tab [Tylenol] 650 mg PO Q6H #30 tab 10/10/22 Aspirin 81 mg PO DAILY 30 Days #30 tab 06/30/24 Atorvastatin [Lipitor] 80 mg PO HS 30 Days #30 tab 06/30/24 Clopidogrel [Plavix] 75 mg PO DAILY 30 Days #30 tab 06/30/24 Losartan [Cozaar] 50 mg PO DAILY 30 Days #60 tab 06/30/24 Pantoprazole [Protonix] 40 mg PO AC-BRKFST 30 Days #30 tab 06/30/24 carvediloL [Coreg] 25 mg PO BID-W/MEALS 30 Days #60 06/30/24 tab hydrALAZINE HCL [Apresoline] 25 mg PO TID 30 Days #90 tab 06/30/24 predniSONE See Taper PO DAILY 12 Days #30 tab 06/30/24 Allergies/Adverse Reactions: Allergies Allergy/AdvReac Type Severity Reaction Status Date / Time pregabalin [From Lyrica] Allergy Unknown Rash/Hives Verified 06/28/24 10:02 acetylcysteine Allergy Swelling Verified 06/28/24 10:02 hydromorphone HCl AdvReac headache Verified 06/28/24 10:02 [From Dilaudid] BERRIES Allergy Anaphylaxis Uncoded 06/28/24 10:02 Review of Systems ROS Statement: Those systems with pertinent positive or pertinent negative responses have been documented in the HPI. ROS Other: All systems not noted in ROS Statement are negative. General Exam - General Exam Comments Initial Comments: NIH of 11 Limitations: altered mental status General appearance: alert, in no apparent distress, anxious Head exam: Present: atraumatic, normocephalic, normal inspection Eye exam: Present: normal appearance, PERRL, EOMI. Absent: scleral icterus, conjunctival injection, periorbital swelling ENT exam: Present: normal exam, mucous membranes moist Neck exam: Present: normal inspection. Absent: tenderness, meningismus, lymphadenopathy Respiratory exam: Present: normal lung sounds bilaterally. Absent: respiratory distress, wheezes, rales, rhonchi, stridor Cardiovascular Exam: Present: regular rate, normal rhythm, normal heart sounds. Absent: systolic murmur, diastolic murmur, rubs, gallop, clicks GI/Abdominal exam: Present: soft, normal bowel sounds. Absent: distended, t enderness, guarding, rebound, rigid Extremities exam: Present: normal inspection, full ROM, normal capillary refill. Absent: tenderness, pedal edema, joint swelling, calf tenderness Back exam: Present: normal inspection Neurological exam: Present: alert, oriented X3, CN II-XII intact Psychiatric exam: Present: normal affect, normal mood Skin exam: Present: warm, dry, intact, normal color. Absent: rash Stroke MDM - Lab Data Result diagrams: 06/30/24 08:08 06/30/24 08:08 Lab Results 06/27/24 06/27/24 06/27/24 Range/Units 23:01 23:06 23:06 WBC 9.4 (3.8-10.6) k/uL RBC 5.11 (3.80-5.40) m/uL Hgb 15.3 (11.4-16.0) gm/dL Hct 45.9 (34.0-46.0) % MCV 89.8 (80.0-100.0) fL MCH 29.8 (25.0-35.0) pg MCHC 33.2 (31.0-37.0) g/dL RDW 13.5 (11.5-15.5) % Plt Count 196 (150-450) k/uL MPV 8.0 Neutrophils % 52 % Lymphocytes % 38 % Monocytes % 4 % Eosinophils % 3 % Basophils % 1 % Neutrophils # 4.9 (1.3-7.7) k/uL Lymphocytes # 3.6 (1.0-4.8) k/uL Monocytes # 0.4 (0-1.0) k/uL Eosinophils # 0.3 (0-0.7) k/uL Basophils # 0.1 (0-0.2) k/uL PT 11.1 (10.0-12.5) sec INR 1.0 (<1.2) APTT 24.7 (22.0-30.0) sec Sodium (137-145) mmol/L Potassium (3.5-5.1) mmol/L Chloride (98-107) mmol/L Carbon Dioxide (22-30) mmol/L Anion Gap mmol/L BUN (7-17) mg/dL Creatinine (0.52-1.04) mg/dL Est GFR (CKD-EPI)AfAm (>60 ml/min/1.73 sqM) Est GFR (CKD-EPI)NonAf (>60 ml/min/1.73 sqM) Glucose (74-99) mg/dL POC Glucose (mg/dL) 109 (70-110) mg/dL POC Glu Beverage Steward ID Hunter, Yolanda Calcium (8.4-10.2) mg/dL Total Bilirubin (0.2-1.3) mg/dL AST (14-36) U/L ALT (4-34) U/L Alkaline Phosphatase (38-126) U/L Creatine Kinase (30-135) U/L Troponin I (0.000-0.034) ng/mL Total Protein (6.3-8.2) g/dL Albumin (3.5-5.0) g/dL Urine Color Urine Appearance (Clear) Urine pH (5.0-8.0) Ur Specific [place] (1.001-1.035) Urine Protein (Negative) Urine Glucose (UA) (Negative) Urine Ketones (Negative) Urine Blood (Negative) Urine Nitrite (Negative) Urine Bilirubin (Negative) Urine Urobilinogen (<2.0) mg/dL Ur Leukocyte Esterase (Negative) Urine RBC (0-5) /hpf Urine WBC (0-5) /hpf Ur Squamous Epith Cells (0-4) /hpf Urine Bacteria (None) /hpf Serum Alcohol mg/dL 06/27/24 06/27/24 06/28/24 Range/Units 23:06 23:06 00:07 WBC (3.8-10.6) k/uL RBC (3.80-5.40) m/uL Hgb (11.4-16.0) gm/dL Hct (34.0-46.0) % MCV (80.0-100.0) fL MCH (25.0-35.0) pg MCHC (31.0-37.0) g/dL RDW (11.5-15.5) % Plt Count (150-450) k/uL MPV Neutrophils % % Lymphocytes % % Monocytes % % Eosinophils % % Basophils % % Neutrophils # (1.3-7.7) k/uL Lymphocytes # (1.0-4.8) k/uL Monocytes # (0-1.0) k/uL Eosinophils # (0-0.7) k/uL Basophils # (0-0.2) k/uL PT (10.0-12.5) sec INR (<1.2) APTT (22.0-30.0) sec Sodium 141 (137-145) mmol/L Potassium 4.4 (3.5-5.1) mmol/L Chloride 106 (98-107) mmol/L Carbon Dioxide 27 (22-30) mmol/L Anion Gap 8 mmol/L BUN 21 H (7-17) mg/dL Creatinine 0.77 (0.52-1.04) mg/dL Est GFR (CKD-EPI)AfAm >90 (>60 ml/min/1.73 sqM) Est GFR (CKD-EPI)NonAf >90 (>60 ml/min/1.73 sqM) Glucose 101 H (74-99) mg/dL POC Glucose (mg/dL) (70-110) mg/dL POC Glu Beverage Steward ID Calcium 9.9 (8.4-10.2) mg/dL Total Bilirubin 0.8 (0.2-1.3) mg/dL AST 20 (14-36) U/L ALT 12 (4-34) U/L Alkaline Phosphatase 82 (38-126) U/L Creatine Kinase 51 (30-135) U/L Troponin I <0.012 (0.000-0.034) ng/mL Total Protein 7.7 (6.3-8.2) g/dL Albumin 4.6 (3.5-5.0) g/dL Urine Color Colorless Urine Appearance Clear (Clear) Urine pH 5.5 (5.0-8.0) Ur Specific [place] 1.014 (1.001-1.035) Urine Protein Negative (Negative) Urine Glucose (UA) Negative (Negative) Urine Ketones Negative (Negative) Urine Blood Trace H (Negative) Urine Nitrite Negative (Negative) Urine Bilirubin Negative (Negative) Urine Urobilinogen <2.0 (<2.0) mg/dL Ur Leukocyte Esterase Negative (Negative) Urine RBC 4 (0-5) /hpf Urine WBC 2 (0-5) /hpf Ur Squamous Epith Cells 1 (0-4) /hpf Urine Bacteria Rare H (None) /hpf Serum Alcohol <10 mg/dL - NIH Stroke Scale 1a. Level of Consciousness: (1) not alert, arousable 1b. LOC Questions: (1) answers 1 question correctly 1c. LOC Commands: (0) performs tasks correctly 2. Best Gaze: (0) normal 3. Visual: (0) no visual loss 4. Facial Palsy: (1) minor paralysis 5a. Motor Arm Left: (1) drift 5b. Motor Arm Right: (2) some gravity effort 6a. Motor Leg Left: (1) drift 6b. Motor Leg Right: (2) some gravity effort 7. Limb Ataxia: (2) present 2 limbs 9. Best Language: (1) mild/moderate aphasia 10. Dysarthria: (1) mild/moderate dysarthria 11. Extinction/Inattention: (1) visual/tactile inattention - Thrombolytic Inclusion/Exclusion Thrombolytic Inclusion Criteria: Symptom Onset < 4.5 h - Medical Decision Making 48 female to ER for evaluation presenting for evaluation regards to acute CVA with tPA given, patient given tPA for acute CVA and will admit for neurological evaluation to the ICU - Radiology Data Radiology results: report reviewed (CT brain CT angio head neck is lacunar infarct), image reviewed - EKG Data -: EKG Interpreted by Me (EKG is sinus 63 VA 181 QRS 161 QTc 463) Past Medical History Past Medical History: Atrial Fibrillation, Heart Failure, COPD, GERD/Reflux, Hyperlipidemia, Hypertension, Pneumonia, Seizure Disorder, Sleep Apnea/CPAP/BIPAP Additional Past Medical History / Comment(s): Hx multiple kidney stones. Hx Pneumonia, vented-2011. Peptic ulcers. Sleep apnea-no device use. Bilateral Occipital Neuritis, headaches, vertigo. Neuropathy and edema bilateral lower legs, "legs give out at times". had brain surg. for convulsions 2012, still has "mini seizures daily", Hx diverticulitis, colon polyps and hemorrhoids. +Covid 11/08/21, mild symptoms, antibody treatment. CTS enrique History of Any Multi-Drug Resistant Organisms: None Reported Past Surgical History: Cholecystectomy, Heart Catheterization, Hernia Repair Additional Past Surgical History / Comment(s): Brain surgery in 2012 for seizures and headaches, right ovary/tube removed, D&C, Picc Line insertion and removal, kidney stone surgically removed, cystoscopy with ureteral stent, lithotripsy, Laproscopic Cristy Fundoplasty, colonoscopy, recent EGD Past Anesthesia/Blood Transfusion Reactions: No Reported Reaction, Motion Sickness Additional Past Anesthesia/Blood Transfusion Reaction / Comment(s): "Pulmonary edema during kidney surgery, was in induced coma for 3 days". Past Psychological History: Anxiety Smoking Status: Current every day smoker Past Alcohol Use History: None Reported Past Drug Use History: Marijuana - Past Family History Father Family Medical History: AFIB, Diabetes Mellitus, Hypertension Additional Family Medical History / Comment(s): Pacemaker. Mother Family Medical History: Cancer Additional Family Medical History / Comment(s): of pancreatic cancer at the age of 58yrs. Maternal cousin had pancreatic cancer. Maternal uncle had lung cancer. Sister(s) Family Medical History: AICD/Pacemaker Additional Family Medical History / Comment(s): the patient has one sister with AICD. Second sister has no major medical problems. Patient's 1 brother that is healthy. Patient has one son and one daughter with no major medical problems. Course Vital Signs 06/27/24 06/27/24 06/27/24 23:03 23:04 23:20 Temperature 98.6 F Pulse Rate 67 80 79 Respiratory 22 20 20 Rate Blood Pressure 203/121 203/121 196/100 O2 Sat by Pulse 98 98 96 Oximetry 06/27/24 06/27/24 06/28/24 23:35 23:50 00:00 Temperature Pulse Rate 65 80 77 Respiratory 22 18 22 Rate Blood Pressure 209/106 184/92 163/97 O2 Sat by Pulse 96 97 Oximetry 06/28/24 06/28/24 06/28/24 00:15 00:30 00:45 Temperature Pulse Rate 71 77 75 Respiratory 20 20 20 Rate Blood Pressure 183/88 181/93 192/104 O2 Sat by Pulse 97 98 94 L Oximetry 06/28/24 06/28/24 06/28/24 00:55 01:00 01:09 Temperature Pulse Rate 73 70 72 Respiratory 20 20 16 Rate Blood Pressure 178/98 188/96 188/96 O2 Sat by Pulse 98 85 L 97 Oximetry 06/28/24 06/28/24 06/28/24 01:15 01:30 01:45 Temperature Pulse Rate 74 67 68 Respiratory 19 12 14 Rate Blood Pressure 181/93 150/88 170/94 O2 Sat by Pulse 96 95 97 Oximetry 06/28/24 02:00 Temperature Pulse Rate 61 Respiratory 14 Rate Blood Pressure 172/91 O2 Sat by Pulse 98 Oximetry - Reevaluation(s) Reevaluation #1: 06/28/24 01:07 Medical record is reviewed Code stroke paged upon patient evaluation Reevaluation #2: 06/28/24 01:07 Patient is showing no significant clinical improvement and CVA symptoms Reevaluation #3: 06/28/24 01:07 Spoke with patient and family at length decision was made to go forward with tPA Patient has difficult to control blood pressure here in the emergency department and presenting with nontypical stroke symptoms Patient was within the stroke clinic window by the time we were able to get blood pressure down as well as significant conversation with family due to uncommon stroke presentation Decision was made to go forward with tPA as well as blood pressure was within control but did cause significant delay, still within acceptable time for giving tPA Reevaluation #4: Was pt. sent in by a medical professional or institution (, PA, PRODUCTION TEAM MANAGER, urgent care, hospital, or assisted...) When possible be specific @ -no Did you speak to anyone other than the patient for history (EMS, parent, family, police, friend...)? What history was obtained from this source @ -Yes did speak with neuro interventionalists regarding patient, decision made to go forward with tPA Did you review nursing and triage notes (agree or disagree)? Why? @ -agree Are old charts reviewed (outside hosp., previous admission, EMS record, old EKG, old radiological studies, urgent care reports/EKG's, assisted records)? Report findings @ -yes Differential Diagnosis (chest pain, altered mental status, abdominal pain women, abdominal pain men, vaginal bleeding, weakness, fever, dyspnea, syncope, headache, dizziness, GI bleed, back pain, seizure, CVA, palpatations, mental health, musculoskeletal)? @ -prior EKG interpreted by me (3pts min.). @ -yes X-rays interpreted by me (1pt min.). @ -no CT interpreted by me (1pt min.). @ -Yes negative for acute disease U/S interpreted by me (1pt. min.). @ -no What testing was considered but not performed or refused? (CT, X-rays, U/S, labs)? Why? @ -none What meds were considered but not given or refused? Why? @ -none Did you discuss the management of the patient with other professionals (pro fessionals i.e. , PA, PRODUCTION TEAM MANAGER, lab, RT, psych nurse, social media designer, round up ring hand, teacher, space operations officer, case management coordinator)? Give summary @ -no Was smoking cessation discussed for >3mins.? @ -no Was critical care preformed (if so, how long)? @ -yes31 Were there social determinants of health that impacted care today? How? (Homelessness, low income, unemployed, alcoholism, drug addiction, transportation, low edu. Level, literacy, decrease access to med. care, retirement, rehab)? @ -none Was there de-escalation of care discussed even if they declined (Discuss DNR or withdrawal of care, Hospice)? DNR status @ -no What co-morbidities impacted this encounter? (DM, HTN, Smoking, COPD, CAD, Cancer, CVA, ARF, Chemo, Hep., AIDS, mental health diagnosis, sleep apnea, morbid obesity)? @ -none Was patient admitted / discharged? Hospital course, mention meds given and route, prescriptions, significant lab abnormalities, going to OR and other pertinent info. @ - 48 female to ER for evaluation presenting for evaluation regards to acute CVA with tPA given, patient given tPA for acute CVA and will admit for keenan rological evaluation to the ICU Admitted Undiagnosed new problem with uncertain prognosis? @ -no Drug Therapy requiring intensive monitoring for toxicity (Heparin, Nitro, Insulin, Cardizem)? @ -no Were any procedures done? @ -no Diagnosis/symptom? @ -CVA Acute, or Chronic, or Acute on Chronic? @ -Acute Uncomplicated (without systemic symptoms) or Complicated (systemic symptoms)? @ -Complicated Side effects of treatment? @ -no Exacerbation, Progression, or Severe Exacerbation? @ -exacerbation Poses a threat to life or bodily function? How? (Chest pain, [place], MT, pneumonia, PE, COPD, DKA, ARF, appy, cholecystitis, CVA, Diverticulitis, Homicidal, Suicidal, threat to staff... and all critical care pts) @ -yes Reevaluation #5: Differential CVA Ischemic stroke, hemorrhagic stroke, brain tumor, atypical migraine, Wernicke's encephalopathy, seizure, multiple sclerosis, meningitis, encephalitis, hypoglycemia, Guillain-Quintanilla, electrolytes disturbance, myasthenia gravis.... This is not meant to be an all-inclusive list - Consultations Consultation #1: Spoke with [facility] who agrees to admit this patient Consultation #2: Spoke with neurology interventionalists who initially was on the fence about giving tPA but decision was made to go forward with giving tPA on this patient Critical Care Time Critical Care Time: Yes Total Critical Care Time: 31 Disposition Clinical Impression: Cerebrovascular accident (CVA), Hypertension, Hypertensive emergency, Lacunar infarct, acute, Altered mental state Disposition: ADMITTED IP TO THIS HOSP Condition: Serious Is patient prescribed a controlled substance at d/c from ED?: No Time of Disposition: 01:00
[2024-06-27] MEDS: LORazepam 2 MG/ML INJ IV STA (23:30)
[2024-06-27] MEDS: ONDANSETRON 4 MG/2 ML VIAL IVP STA (23:30)
[2024-06-27 23:39] LABS: Basophils # (A) 0.1 k/uL (0-0.2); Basophils % (A) 1 %; Eosinophils # (A) 0.3 k/uL (0-0.7); Eosinophils % (A) 3 %; HCT 45.9 % (34.0-46.0); HGB 15.3 gm/dL (11.4-16.0); Lymphocytes # (A) 3.6 k/uL (1.0-4.8); Lymphocytes % (A) 38 %; MCH 29.8 pg (25.0-35.0); MCHC 33.2 g/dL (31.0-37.0); MCV 89.8 fL (80.0-100.0); Monocytes # (A) 0.4 k/uL (0-1.0); Monocytes % (A) 4 %; Neutrophils # (A) 4.9 k/uL (1.3-7.7); Neutrophils % (A) 52 %; Platelet Count 196 k/uL (150-450); RBC 5.11 m/uL (3.80-5.40); RDW 13.5 % (11.5-15.5); WBC 9.4 k/uL (3.8-10.6)
[2024-06-27] MEDS: LABETALOL 5 MG/ML VIAL MDV IVP STA (23:44)
[2024-06-27 23:45] LABS: ALT 12 U/L (4-34); AST 20 U/L (14-36); African American GFR (CKD) >90 (>60 ml/min/1.73 sqM); Albumin 4.6 g/dL (3.5-5.0); Alcohol <10 mg/dL; Alkaline Phosphatase 82 U/L (38-126); Anion Gap 8 mmol/L; Blood Urea Nitrogen 21 mg/dL (7-17); Calcium 9.9 mg/dL (8.4-10.2); Carbon Dioxide 27 mmol/L (22-30); Chloride 106 mmol/L (98-107); Creatine Kinase 51 U/L (30-135); Glucose 101 mg/dL (74-99); Non-African American GFR(CKD) >90 (>60 ml/min/1.73 sqM); Potassium 4.4 mmol/L (3.5-5.1); Sodium 141 mmol/L (137-145); Total Bilirubin 0.8 mg/dL (0.2-1.3); Total Protein 7.7 g/dL (6.3-8.2)
[2024-06-27] MEDS: SODIUM CHLORIDE 0.9% 1,000 ML IV STA (23:46)
[2024-06-27 23:57] LABS: Partial Thromboplastin Time 24.7 sec (22.0-30.0); Prothrombin Time 11.1 sec (10.0-12.5)
--- NOTE | 2024-06-28 | CT ---
EXAM: CT Head Without Intravenous Contrast CLINICAL HISTORY: ITS.REASON CT Reason: Neuro deficit, acute, stroke suspected TECHNIQUE: Axial computed tomography images of the head/brain without intravenous contrast. CTDI is 48.9 mGy and DLP is 1150.8 mGy-cm. This CT exam was performed using one or more of the following dose reduction techniques: automated exposure control, adjustment of the mA and/or kV according to patient size, and/or use of iterative reconstruction technique. COMPARISON: MRI of 12/30/2016 CT 06/06/2022 FINDINGS: Brain: New lacunar infarct along the posterior limb of the internal capsule. This may represents an acute infarct. No hemorrhage. No significant white matter disease. Ventricles: No acute findings. No ventriculomegaly. Bones/joints: Suboccipital craniectomy. No acute fracture. Soft tissues: Unremarkable. Sinuses: Minimal mucosal thickening in the ethmoid air cells and maxillary sinuses. Mastoid air cells: Unremarkable as visualized. No mastoid effusion. IMPRESSION: New age indeterminate lacunar infarct along the posterior limb of the internal capsule. This may represent an acute infarct. <MYCVCSECTION> Communications: 06/28/24 00:03 Call Doctor Regarding Stroke. A telephone report of the findings was given to and confirmed by Dr. Baugh on 06/28 00:03 (-04: 00)
[2024-06-28] MEDS: LABETALOL 5 MG/ML VIAL MDV IVP STA ×2 (00:06→01:05)
--- NOTE | 2024-06-28 00:06 | CT ---
EXAM: CT Angiography Head With Intravenous Contrast CLINICAL HISTORY: ITS.REASON CT Reason: Neuro deficit, acute, stroke suspected TECHNIQUE: Axial computed tomographic angiography images of the head with intravenous contrast. CTDI is 31.2 mGy and DLP is 31.2 mGy-cm. This CT exam was performed using one or more of the following dose reduction techniques: automated exposure control, adjustment of the mA and/or kV according to patient size, and/or use of iterative reconstruction technique. MIP reconstructed images were created and reviewed. COMPARISON: [facility] 12/30/2016 FINDINGS: Limitations: Contrast bolus timing limits study. Right internal carotid artery: No acute findings. Intracranial segment is patent with no significant stenosis. No aneurysm. Right anterior cerebral artery: No occlusion or significant stenosis. No aneurysm. Right middle cerebral artery: No occlusion or significant stenosis. No aneurysm. Right posterior cerebral artery: origin of the posterior cerebral arteries. Right vertebral artery: Unremarkable as visualized. Left internal carotid artery: No acute findings. Intracranial segment is patent with no significant stenosis. No aneurysm. Left anterior cerebral artery: No occlusion or significant stenosis. No aneurysm. Left middle cerebral artery: No occlusion or significant stenosis. No aneurysm. Left posterior cerebral artery: See above. Left vertebral artery: Unremarkable as visualized. Basilar artery: No occlusion or significant stenosis. No aneurysm. IMPRESSION: No large vessel occlusion or aneurysm. EXAM: CT Angiography Neck With Intravenous Contrast CLINICAL HISTORY: ITS.REASON CT Reason: Neuro deficit, acute, stroke suspected TECHNIQUE: Routine carotid CT angiography protocol was performed with intravenous contrast. NASCET criteria using the distal ICAs for comparison were used for evaluation of stenoses. CTDI is 14.9 mGy and DLP is 651.4 mGy-cm. This CT exam was performed using one or more of the following dose reduction techniques: automated exposure control, adjustment of the mA and/or kV according to patient size, and/or use of iterative reconstruction technique. MIP reconstructed images were created and reviewed. COMPARISON: None. FINDINGS: Limitations: Contrast bolus timing limits study. VASCULATURE: Right common carotid artery: No significant stenosis. No dissection or occlusion. Right internal carotid artery: Minimal atherosclerotic plaque in the proximal internal carotid arteries. No stenosis. Right external carotid artery: No occlusion. Right vertebral artery: No significant stenosis. No dissection or occlusion. Left common carotid artery: No significant stenosis. No dissection or occlusion. Left internal carotid artery: See above. Left external carotid artery: No occlusion. Left vertebral artery: No significant stenosis. No dissection or occlusion. NECK: Bones/joints: No acute findings. Soft tissues: Unremarkable. Thyroid: Small calcified nodule right lobe of thyroid. Lung apices: No acute disease. CAROTID STENOSIS REFERENCE USING NASCET CRITERIA: % ICA stenosis = (1 - narrowest ICA diameter/diameter of distal cervical ICA) x 100. Mild - <50% stenosis. Moderate - 50-69% stenosis. Severe - 70-94% stenosis. Near occlusion - 95-99% stenosis. Occluded - 100% stenosis. IMPRESSION: No acute findings in the arteries of the neck.
[2024-06-28] MEDS: T.ENECTEPLASE 5 MG/ML VIAL IVP STA (00:57)
[2024-06-28] MEDS ORDERED: IPRATROPIUM-ALBUTEROL 3 ML NEB INHALATION PRN (01:01)
[2024-06-28] MEDS ORDERED: NALOXONE 0.4 MG/ML 1 ML VIAL IV PRN (01:01)
[2024-06-28] MEDS: SODIUM CHLORIDE 0.9% 1,000 ML IV SCH (01:11)
--- NOTE | 2024-06-28 01:21 | XR ---
EXAM: XR Chest, 1 View CLINICAL HISTORY: ITS.REASON XR Reason: altered mental status TECHNIQUE: Frontal view of the chest. COMPARISON: 12/06/2023 FINDINGS: Lungs: Mild enlarged cardiac silhouette. Pulmonary vascular congestion. No consolidation. Pleural space: No acute findings. No pneumothorax. Heart: Mildly enlarged. Bones/joints: No acute osseous abnormality. IMPRESSION: Mild enlarged cardiac silhouette. Pulmonary vascular congestion.
--- NOTE | 2024-06-28 01:26 | CT ---
EXAM: CT Angiography Chest Without and With Intravenous Contrast CLINICAL HISTORY: ITS.REASON CT Reason: dissection TECHNIQUE: Axial computed tomographic angiography images of the chest without and with intravenous contrast using aortic dissection protocol. CTDI is 71.7 mGy and DLP is 1726.1 mGy-cm. This CT exam was performed using one or more of the following dose reduction techniques: automated exposure control, adjustment of the mA and/or kV according to patient size, and/or use of iterative reconstruction technique. MIP reconstructed images were created and reviewed. COMPARISON: No relevant prior studies available. FINDINGS: Aorta: Mild calcified plaque thoracic aorta. No thoracic aortic aneurysm. No dissection Great vessels of aortic arch: No acute findings. No dissection. No arterial occlusion or significant stenosis. Lungs: Pulmonary vascular congestion. Mild interstitial septal thickening in the lungs. No mass. No consolidation. Pleural space: Unremarkable. No significant effusion. No pneumothorax. Heart: Mild coronary artery calcification. No cardiomegaly. No significant pericardial effusion. Bones/joints: Thoracic degenerative disc disease. No acute fracture. No dislocation. Soft tissues: Unremarkable. Lymph nodes: Unremarkable. No enlarged lymph nodes. Gallbladder and bile ducts: Cholecystectomy. IMPRESSION: 1. No thoracic aortic aneurysm or dissection. No pulmonary embolism. 2. Mild cardiomegaly. Pulmonary vascular congestion. Mild interstitial pulmonary edema.
[2024-06-28 01:48] LABS: Appearance,Urine Clear (Clear); Bacteria,Urine Rare /hpf; Bilirubin,Urine Negative (Negative); Blood,Urine Trace (Negative); Color,Urine Colorless; Glucose,Urine (UA) Negative (Negative); Ketones,Urine Negative (Negative); Leukocyte Esterase,Urine Negative (Negative); Nitrite,Urine Negative (Negative); PH, Urine 5.5 (5.0-8.0); Protein,Urine Negative (Negative); RBC,Urine 4 /hpf (0-5); Specific Gravity,Urine 1.014 (1.001-1.035); Squamous Epithelial Cell,Urine 1 /hpf (0-4); Urobilinogen,Urine <2.0 mg/dL (<2.0); WBC,Urine 2 /hpf (0-5)
[2024-06-28 02:20] LABS: Glucose,Whole Blood 106 mg/dL (70-110)
[2024-06-28] MEDS: CLEVIDIPINE BUTYRATE 25 MG in EMPTY BAG 1 BAG IV SCH (08:12)
[2024-06-28] MEDS: hydrALAZINE HCL 20 MG/ML 1 ML VIAL IVP STA (08:12)
[2024-06-28] MEDS ORDERED: ACETAMINOPHEN TAB 325 MG TAB PO SCH (11:30)
--- NOTE | 2024-06-28 11:35 | CA ---
Transthoracic Echo Report Name: Sis Richards Age: 48 Gender: F : 1975 Exam Date: 06/28/2024 07:37 Exam Location: [facility] Ht (in): 61 Wt (lb): 206 Ordering Physician: Sung Pinto DO Attending/Referring Phys: [id number], Blair Bar Roller Kim Brownlee RDCS Procedure CPT: Indications: Thrombus Cardiac Hx: Technical Quality: Fair Contrast 1: Total Dose (mL): Contrast 2: Total Dose (mL): MEASUREMENTS (Male / Female) Normal Values 2D ECHO LV Diastolic Diameter PLAX 5.0 cm 4.2 - 5.9 / 3.9 - 5.3 cm LV Systolic Diameter PLAX 3.9 cm IVS Diastolic Thickness 1.5 cm 0.6 - 1.0 / 0.6 - 0.9 cm LVPW Diastolic Thickness 1.6 cm 0.6 - 1.0 / 0.6 - 0.9 cm LV Relative Wall Thickness 0.6 RV Internal Dim ED PLAX 3.0 cm LA Systolic Diameter LX 4.1 cm 3.0 - 4.0 / 2.7 - 3.8 cm LV Diastolic Volume MOD BP 78.5 cm??? 67 - 155 / 56 - 104 cm??? LV Systolic Volume MOD BP 40.8 cm??? - 58 / 19 - 49 cm??? LV Ejection Fraction MOD BP 48.0 % >= 55 % LV Cardiac Index MOD BP 917.1 cm???/min???m??? LV Diastolic Volume MOD 4C 77.6 cm??? LV Systolic Volume MOD 4C 36.3 cm??? LV Ejection Fraction MOD 4C 53.2 % LV Cardiac Index MOD 4C 1003.1 cm???/min???m??? LV Diastolic Length 4C 7.3 cm LV Systolic Length 4C 6.3 cm LV Diastolic Volume MOD 2C 75.2 cm??? LV Systolic Volume MOD 2C 47.1 cm??? LV Ejection Fraction MOD 2C 37.3 % LV Cardiac Index MOD 2C 682.8 cm???/min???m??? LV Diastolic Length 2C 7.9 cm LV Systolic Length 2C 6.6 cm LA Volume 71.1 cm??? 18 - 58 / 22 - 52 cm??? LA Volume Index 34.6 cm???/m??? 16 - 28 cm???/m??? M-MODE Aortic Root Diameter MM 3.3 cm AV Cusp Separation MM 2.3 cm DOPPLER AV Peak Velocity 155.1 cm/s AV Peak Gradient 9.6 mmHg MV Area PHT 2.7 cm??? Mitral E Point Velocity 89.6 cm/s Mitral A Point Velocity 108.4 cm/s Mitral E to A Ratio 0.8 MV Deceleration Time 281.8 ms FINDINGS Left Ventricle Left ventricular ejection fraction is estimated at 45-50 %. Left ventricular cavity size normal. Moderately increased septal wall thickness. Moderately increased posterior wall thickness. Mildly decreased left ventricular ejection fraction. Right Ventricle Normal right ventricular size and function. Unable to estimate the right ventricular systolic pressure. Right Atrium Normal right atrial size. No right atrial thrombus or mass seen. Negative agitated saline bubble study for right to left shunt. Left Atrium Mildly increased left atrial diameter. Moderately increased left atrial volume. Mildly increased left atrial area. Mitral Valve Structurally normal mitral valve. No mitral stenosis, regurgitation or prolapse. Aortic Valve Trileaflet aortic valve. No aortic valve stenosis or regurgitation. Tricuspid Valve Structurally normal tricuspid valve. No tricuspid stenosis, regurgitation or prolapse. Pulmonic Valve Pulmonic valve not well visualized. No pulmonic regurgitation. Pericardium No pericardial or pleural effusion. Aorta Normal size aortic root and proximal ascending aorta. CONCLUSIONS Will LV systolic dysfunction with an ejection fraction of 45-50% Negative bubble study Consider transesophageal echo to definitively rule out cardiac source for thromboembolic CVA Previewed by: Dr. Dagoberto Guzman MD (Electronically Signed) Final Date: 28 June 2024 11:34
[2024-06-28] MEDS: ACETAMINOPHEN TAB 325 MG TAB PO PRN (11:51)
[2024-06-28] MEDS: carvediloL 12.5 MG TAB PO SCH (11:51)
--- NOTE | 2024-06-28 12:27 | P.HPIM ---
History of Present Illness H&P Date: 06/28/24 History of present illness; 48-year-old female presents to the emergency department with strokelike symptoms and altered mental status. Patient arrived in a wheelchair with deficits shown in speech, the right side of the face, dysarthria, both the left and the right arm as well as both the left and the right leg. It was reported that this was of sudden onset, the patient received tenecteplase in the emergency department. She has a past medical history that includes a seizure disorder, she had brain surgery for convulsions in 2012 and continually has "mini seizures" on a daily basis, headaches, vertigo, bilateral occipital neuritis. Additionally she has a history of recurrent kidney stones, pneumonia for which she was vented and 2012, sleep apnea, hypertension, hyperlipidemia, GERD/reflux and peptic ulcers and potential history of atrial fibrillation per previous documentation, although the patient herself is unsure. She just states that she had one point in time, a long time ago, was given Eliquis for 30 days. While in the emergency department patient underwent a brain CT, showing a new age intermediate lacunar infarct along the posterior limb of the internal capsule -possibly representing an acute infarct. Additionally she underwent a CT angiography of the head showing a large vessel occlusion or aneurysm, and a CT angiography of the neck which showed no acute findings in the arteries of the neck. Upon arrival to the emergency room patient's blood pressure was 203/121, with a pulse of 67 and she has been on nasal cannula 2 L maintaining oxygen saturation in the mid to upper 90s. Currently her blood pressure is 175/97 with a pulse rate of 55 with an oxygen saturation of 97%. Patient's home medication of Coreg 25 mg daily has been restarted. At bedside today patient states she is feeling better today than she was yesterday, her headache while still present has gotten better and her weakness is continue to improve. Patient was able to converse in full and r espond appropriately without any difficulty today, she showed good strength all extremities. She has no acute complaints other than her headache. Initial lab work done in the ER showed CBC within normal limits, WBCs 9.4, Hgb 15.3, Hct 45.9, PLT 196, BUN 21, glucose 101. UA was noncontributory. Serum alcohol was less than 10. EKG done in the ER showed heart rate of 63, no ST segment elevation or depression seen, no T-wave inversions seen. Chest x-ray done in the ER showed mildly enlarged cardiac silhouette and pulmonary vascular congestion. CT head done showed no age and immediately clear infarct along the posterior limb of the internal capsule possibly representing an acute infarct. CTA head and neck done showed no significant stenosis, aneurysm or thrombus in the intracranial circulation. CTA of the chest showed no thoracic aortic aneurysm or dissection. No pulmonary embolism. Mild cardiomegaly, with pulmonary vascular congestion and mild interstitial pulmonary edema. Patient admitted to internal medicine service REVIEW OF SYSTEMS: CONSTITUTIONAL: No fever, no malaise, no fatigue. HEENT: No recent visual problems or hearing problems. Denied any sore throat. CARDIOVASCULAR: No chest pain, orthopnea, PND, no palpitations, no syncope. PULMONARY: No shortness of breath, no cough, no hemoptysis. GASTROINTESTINAL: No diarrhea, no nausea, no vomiting, no abdominal pain. NEUROLOGICAL: Headache present, but improving. Generalized weakness that was worse on the right side, however now improving. No numbness. HEMATOLOGICAL: Denies any bleeding or petechiae. GENITOURINARY: Denies any burning micturition, frequency, or urgency. MUSCULOSKELETAL/RHEUMATOLOGICAL: Denies any joint pain, swelling, or any muscle pain. ENDOCRINE: Denies any polyuria or polydipsia. The rest of the 14-point review of systems is negative. PHYSICAL EXAMINATION: GENERAL: The patient is alert and oriented x3, not in any acute distress. Well developed, well nourished. HEENT: Pupils are round and equally reacting to light. EOMI. No scleral icterus. No conjunctival pallor. Normocephalic, atraumatic. No pharyngeal erythema. No thyromegaly. CARDIOVASCULAR: S1 and S2 present. No murmurs, rubs, or gallops. PULMONARY: Chest is clear to auscultation, no wheezing or crackles. ABDOMEN: Soft, nontender, nondistended, normoactive bowel sounds. No palpable organomegaly. MUSCULOSKELETAL: No joint swelling or deformity. EXTREMITIES: No cyanosis, clubbing, or pedal edema. NEUROLOGICAL: Gross neurological examination did not reveal any focal deficits. SKIN: No rashes. 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 Per brain CT on 06/27 there is a new age intermediate lacunar infarct along the posterior limb of the internal capsule, possibly representing an acute infarct; side not specified Patient states she had weakness, all over, however she states it was more so on her right side last night (06/27) Patient given tenecteplase last night Repeat CT scheduled for tonight (06/28) at 11:[address] (no need to repeat CT if routine MRI ordered by neurology is completed today), if no bleeding is shown, then began on antiplatelet medication Neurology consulted, ordered MRI brain and routine EEG # Altered mental state secondary to acute CVA - resolved Close reported that on presentation patient had altered mental status Seen the patient at bedside today she was able to interact and respond fully and appropriately without any deficiency or difficulty # Hypertensive emergency Presented with precipitously elevated blood pressure, continues to fluctuate however remains elevated Elevated blood pressures can be seen in patients suffered a CVA; appropriate to maintain relatively elevated blood pressure in patients with a CVA Patient's medication of Coreg 25 mg daily restarted # Potential history of atrial fibrillation based on prior documentation Documentation mentions patient has a history of atrial fibrillation; patient seemed unclear on the mention of it Patient states that that there was a previous time in which she was given Eliquis to take for 30 days however no longer, she was unclear/unsure on what this was for Cardiology has been consulted and will continue following their recommendations # Potential history of heart failure based on prior documentation Documentations mentions a possible history of heart failure Patient does not state heart failure has been part of medical history Patient currently takes no medications related to heart failure, or history of it proBNP ordered to help rule out GI prophylaxis - Protonix 40 mg daily DVT prophylaxis - none currently following CVA and being given tenecteplase Continue to monitor vital signs, monitor CBC, monitor CMP, continue telemetry monitoring Labs and medication were reviewed. Continue with symptomatic treatment. Resume home medication. Monitor labs and vitals. Further recommendations as per clinical course of the patient Dictation was produced using [employer] dictation software. please excuse any grammatical, word or spelling errors. Dr. Mohan MD I have performed a history and physical examination and medical decision making of this patient, discussed the same with the the resident, and agree with the assessment and plan as written. I performed brief physical exam. Past Medical History Past Medical History: Atrial Fibrillation, Heart Failure, COPD, GERD/Reflux, Hyperlipidemia, Hypertension, Pneumonia, Seizure Disorder, Sleep Apne a/CPAP/BIPAP Additional Past Medical History / Comment(s): Hx multiple kidney stones. Hx Pneumonia, vented-2011. Peptic ulcers. Sleep apnea-no device use. Bilateral Occipital Neuritis, headaches, vertigo. Neuropathy and edema bilateral lower legs, "legs give out at times". had brain surg. for convulsions 2012, still has "mini seizures daily", Hx diverticulitis, colon polyps and hemorrhoids. +Covid 11/08/21, mild symptoms, antibody treatment. CTS enrique History of Any Multi-Drug Resistant Organisms: None Reported Past Surgical History: Cholecystectomy, Heart Catheterization, Hernia Repair Additional Past Surgical History / Comment(s): Brain surgery in 2012 for seizures and headaches, right ovary/tube removed, D&C, Picc Line insertion and removal, kidney stone surgically removed, cystoscopy with ureteral stent, lithotripsy, Laproscopic Cristy Fundoplasty, colonoscopy, recent EGD Past Anesthesia/Blood Transfusion Reactions: No Reported Reaction, Motion Sickness Additional Past Anesthesia/Blood Transfusion Reaction / Comment(s): "Pulmonary edema during kidney surgery, was in induced coma for 3 days". Past Psychological History: Anxiety Additional Psychological History / Comment(s): Anxiety due to this procedure. Smoking Status: Current every day smoker Past Alcohol Use History: None Reported Additional Past Alcohol Use History / Comment(s): Current smoker, 2 ppd, since 1979. Past Drug Use History: Marijuana Additional Drug Use History / Comment(s): Marijuana, 3 or more joints daily. - Past Family History Father Family Medical History: AFIB, Diabetes Mellitus, Hypertension Additional Family Medical History / Comment(s): Pacemaker. Mother Family Medical History: Cancer Additional Family Medical History / Comment(s): of pancreatic cancer at the age of 58yrs. Maternal cousin had pancreatic cancer. Maternal uncle had lung cancer. Sister(s) Family Medical History: AICD/Pacemaker Additional Family Medical History / Comment(s): the patient has one sister with AICD. Second sister has no major medical problems. Patient's 1 brother that is healthy. Patient has one son and one daughter with no major medical problems. Medications and Allergies Home Medications Medication Instructions Recorded Confirmed Type carvediloL [Coreg] 25 mg PO DAILY 10/11/21 06/28/24 History Acetaminophen Tab [Tylenol] 650 mg PO Q6H #30 tab 10/10/22 06/28/24 Rx Allergies Allergy/AdvReac Type Severity Reaction Status Date / Time pregabalin [From Lyrica] Allergy Unknown Rash/Hives Verified 06/28/24 10:02 acetylcysteine Allergy Swelling Verified 06/28/24 10:02 hydromorphone HCl AdvReac headache Verified 06/28/24 10:02 [From Dilaudid] BERRIES Allergy Anaphylaxis Uncoded 06/28/24 10:02 Physical Exam Vitals: Vital Signs Temp Pulse Resp BP Pulse Ox 06/28/24 07:00 55 L 13 175/97 97 06/28/24 06:45 56 L 12 179/87 98 06/28/24 06:30 60 12 180/88 94 L 06/28/24 06:15 65 15 166/87 97 06/28/24 06:00 70 12 172/89 97 06/28/24 05:45 67 14 172/84 97 06/28/24 05:30 65 13 164/88 98 06/28/24 05:15 64 22 144/91 98 06/28/24 05:00 66 14 159/84 97 06/28/24 04:45 60 14 161/83 98 06/28/24 04:30 60 16 167/91 98 06/28/24 04:15 70 18 166/105 97 06/28/24 04:00 98.0 F 68 14 160/98 96 06/28/24 03:45 72 16 175/92 98 06/28/24 03:30 68 14 182/91 96 06/28/24 03:15 72 18 168/99 97 06/28/24 03:00 63 16 187/101 98 06/28/24 02:45 72 13 171/106 97 06/28/24 02:30 97.6 F 74 18 185/113 96 06/28/24 02:20 74 16 06/28/24 02:12 72 18 170/75 97 06/28/24 02:00 61 14 172/91 98 06/28/24 01:45 68 14 170/94 97 06/28/24 01:30 67 12 150/88 95 06/28/24 01:15 74 19 181/93 96 06/28/24 01:09 72 16 188/96 97 06/28/24 01:00 70 20 188/96 85 L 06/28/24 00:55 73 20 178/98 98 06/28/24 00:45 75 20 192/104 94 L 06/28/24 00:30 77 20 181/93 98 06/28/24 00:15 71 20 183/88 97 06/28/24 00:00 77 22 163/97 97 06/27/24 23:50 80 18 184/92 96 06/27/24 23:35 65 22 209/106 06/27/24 23:20 79 20 196/100 96 06/27/24 23:04 80 20 203/121 98 06/27/24 23:03 98.6 F 67 22 203/121 98 Intake and Output 06/27/24 06/28/24 06/28/24 22:59 06:59 14:59 Intake Total 500 Output Total 100 Balance 400 Intake: Intake, IV Titration 500 Amount Sodium Chloride 0.9% 1, 500 000 ml @ 100 mls/hr IV . Q10H [facility] Rx#:[id number] Output: Urine 100 Other: Voiding Method External Catheter Weight 93.44 kg Results CBC & Chem 7: 06/29/24 05:16 06/29/24 05:16 Labs: Abnormal Lab Results - Last 24 Hours (Table) 06/27/24 06/28/24 Range/Units 23:06 00:07 BUN 21 H (7-17) mg/dL Glucose 101 H (74-99) mg/dL Urine Blood Trace H (Negative) Urine Bacteria Rare H (None) /hpf Thrombosis Risk Factor Assmnt - Choose All That Apply Each Factor Represents 1 point: Age 41-60 years, Medical pt on bed rest, Obesity (BMI >25) Each Risk Factor Represents 5 Points: Stroke (< 1 month) Thrombosis Risk Factor Assessment Total Risk Factor Score: 8 Thrombosis Risk Factor Assessment Level: High Risk
--- NOTE | 2024-06-28 12:30 | P.CNPUL ---
History of Present Illness Consult date: 06/28/24 Requesting physician: Sydney Calles Reason for consult: other (Possible CVA, status post thrombolytic treatment) Chief complaint: Slurred speech, and weakness History of present illness: This is a 48-year-old female with history of multiple medical problems including hypertension, history of diastolic congestive heart failure, paroxysmal atrial fibrillation, COPD, obstructive sleep apnea syndrome, benign essential hypertension, type 2 diabetes with diabetic neuropathy, history of seizure diso rder, chronic headaches, presented to the ER with multiple neurological symptoms including headache, slurred speech, upper and lower extremities weakness, facial drooping, and she had a CT of the brain suggestive of the new age indeterminate lacunar infarct along the posterior limb of the internal capsule. May have represented an acute infarct, and the patient received thrombolytic therapy in the ER, and based on the protocol, she had to be placed in the ICU overnight for 24 hours. NIH stroke scale on admission was 11. Onset of her symptoms were within less than 4.5 hours, hence tPA was given. According to nurses taking care of the patient, patient felt better overnight, however she continues to have profound significant bilateral weakness in her upper and lower extremities. Patient denies any specific symptoms except for some headache earlier this morning, no slurred speech, no mental status change, and she definitely does not have any facial asymmetry. Patient seems to be generally weak mostly. WBC count is 9.4 hemoglobin 15.3 basic metabolic profile is normal and renal profile is normal. CT angiogram of the chest showed mostly cardiomegaly and mild pulmonary vascular congestion. No evidence of thoracic aortic aneurysm or dissection. No evidence of pulmonary embolism CT angiogram of the neck and head showed no significant abnormality Review of Systems CONSTITUTIONAL: Denies any recent significant weight loss or weight gain. EYES: Denies change in vision. EARS, NOSE, MOUTH, THROAT: Denies headaches, denies sore throat. CARDIOVASCULAR: Positive for chest pain, palpitations no syncopal episodes. RESPIRATORY: No cough no wheezing or shortness of breath GASTROINTESTINAL: Denies change in appetite, denies abdominal pain GENITOURINARY: Denies hematuria, denies infections. MUSKULOSKELETAL: Generalized weakness INTEGUMENTARY: Denies rash, denies eczema. NEUROLOGICAL: As noted in HPI PSYCHIATRIC: Denies anxiety, denies depression. HEMATOLOGIC/LYMPHATIC: Denies anemia, denies enlarged lymph nodes. Past Medical History Past Medical History: Atrial Fibrillation, Heart Failure, COPD, GERD/Reflux, Hyperlipidemia, Hypertension, Pneumonia, Seizure Disorder, Sleep Apnea/CPAP/BIPAP Additional Past Medical History / Comment(s): Hx multiple kidney stones. Hx Pneumonia, vented-2011. Peptic ulcers. Sleep apnea-no device use. Bilateral Occipital Neuritis, headaches, vertigo. Neuropathy and edema bilateral lower legs, "legs give out at times". had brain surg. for convulsions 2012, still has "mini seizures daily", Hx diverticulitis, colon polyps and hemorrhoids. +Covid 11/08/21, mild symptoms, antibody treatment. CTS enrique History of Any Multi-Drug Resistant Organisms: None Reported Past Surgical History: Cholecystectomy, Heart Catheterization, Hernia Repair Additional Past Surgical History / Comment(s): Brain surgery in 2012 for seizures and headaches, right ovary/tube removed, D&C, Picc Line insertion and removal, kidney stone surgically removed, cystoscopy with ureteral stent, lithotripsy, Laproscopic Cristy Fundoplasty, colonoscopy, recent EGD Past Anesthesia/Blood Transfusion Reactions: No Reported Reaction, Motion Sickness Additional Past Anesthesia/Blood Transfusion Reaction / Comment(s): "Pulmonary edema during kidney surgery, was in induced coma for 3 days". Past Psychological History: Anxiety Additional Psychological History / Comment(s): Anxiety due to this procedure. Smoking Status: Current every day smoker Past Alcohol Use History: None Reported Additional Past Alcohol Use History / Comment(s): Current smoker, 2 ppd, since 1979. Past Drug Use History: Marijuana Additional Drug Use History / Comment(s): Marijuana, 3 or more joints daily. - Past Family History Father Family Medical History: AFIB, Diabetes Mellitus, Hypertension Additional Family Medical History / Comment(s): Pacemaker. Mother Family Medical History: Cancer Additional Family Medical History / Comment(s): of pancreatic cancer at the age of 58yrs. Maternal cousin had pancreatic cancer. Maternal uncle had lung cancer. Sister(s) Family Medical History: AICD/Pacemaker Additional Family Medical History / Comment(s): the patient has one sister with AICD. Second sister has no major medical problems. Patient's 1 brother that is healthy. Patient has one son and one daughter with no major medical problems. Medications and Allergies Home Medications Medication Instructions Recorded Confirmed Type carvediloL [Coreg] 25 mg PO DAILY 10/11/21 06/28/24 History Acetaminophen Tab [Tylenol] 650 mg PO Q6H #30 tab 10/10/22 06/28/24 Rx Allergies Allergy/AdvReac Type Severity Reaction Status Date / Time pregabalin [From Lyrica] Allergy Unknown Rash/Hives Verified 06/28/24 10:02 acetylcysteine Allergy Swelling Verified 06/28/24 10:02 hydromorphone HCl AdvReac headache Verified 06/28/24 10:02 [From Dilaudid] BERRIES Allergy Anaphylaxis Uncoded 06/28/24 10:02 Physical Exam Vitals: Vital Signs Temp Pulse Resp BP Pulse Ox 06/28/24 12:00 97.6 F 67 16 175/99 95 06/28/24 11:00 51 L 12 163/92 99 06/28/24 10:00 61 16 156/88 97 06/28/24 09:00 55 L 14 175/92 97 06/28/24 08:45 63 19 169/88 94 L 06/28/24 08:30 65 14 180/100 97 06/28/24 08:15 59 L 12 175/89 97 06/28/24 08:00 97.7 F 62 13 188/104 99 06/28/24 07:45 62 20 169/96 98 06/28/24 07:30 67 13 168/98 99 06/28/24 07:15 52 L 15 176/89 98 06/28/24 07:00 55 L 13 175/97 97 06/28/24 06:45 56 L 12 179/87 98 06/28/24 06:30 60 12 180/88 94 L 06/28/24 06:15 65 15 166/87 97 06/28/24 06:00 70 12 172/89 97 06/28/24 05:45 67 14 172/84 97 06/28/24 05:30 65 13 164/88 98 06/28/24 05:15 64 22 144/91 98 06/28/24 05:00 66 14 159/84 97 06/28/24 04:45 60 14 161/83 98 06/28/24 04:30 60 16 167/91 98 06/28/24 04:15 70 18 166/105 97 06/28/24 04:00 98.0 F 68 14 160/98 96 06/28/24 03:45 72 16 175/92 98 06/28/24 03:30 68 14 182/91 96 06/28/24 03:15 72 18 168/99 97 06/28/24 03:00 63 16 187/101 98 06/28/24 02:45 72 13 171/106 97 06/28/24 02:30 97.6 F 74 18 185/113 96 06/28/24 02:20 74 16 06/28/24 02:12 72 18 170/75 97 06/28/24 02:00 61 14 172/91 98 06/28/24 01:45 68 14 170/94 97 06/28/24 01:30 67 12 150/88 95 06/28/24 01:15 74 19 181/93 96 06/28/24 01:09 72 16 188/96 97 06/28/24 01:00 70 20 188/96 85 L 06/28/24 00:55 73 20 178/98 98 06/28/24 00:45 75 20 192/104 94 L 06/28/24 00:30 77 20 181/93 98 06/28/24 00:15 71 20 183/88 97 06/28/24 00:00 77 22 163/97 97 06/27/24 23:50 80 18 184/92 96 06/27/24 23:35 65 22 209/106 06/27/24 23:20 79 20 196/100 96 06/27/24 23:04 80 20 203/121 98 06/27/24 23:03 98.6 F 67 22 203/121 98 Intake and Output 06/27/24 06/28/24 06/28/24 22:59 06:59 14:59 Intake Total 500 500 Output Total 100 0 Balance 400 500 Intake: IV 500 Sodium Chloride 0.9% 1, 500 000 ml @ 100 mls/hr IV . Q10H ARLINE Rx#:[id number] Intake, IV Titration 500 Amount Sodium Chloride 0.9% 1, 500 000 ml @ 100 mls/hr IV . Q10H ARLINE Rx#:[id number] Output: Urine 100 0 Other: Voiding Method External Catheter Toilet # Voids 1 Weight 93.44 kg GENERAL EXAM: Revealed 48-year-old female, seems to be generally weak, not in any distress HEAD: Normocephalic. EENT: PERRLA, HI, nonicteric, neck masses no JVD. CHEST: No chest wall deformity. LUNGS: Clear bilaterally no crackles rhonchi or wheezes CVS: S1 and S2 normal with no audible murmur, regular rhythm. ABDOMEN: No hepatosplenomegaly, normal bowel sounds, no guarding or rigidity. SPINE: No scoliosis or deformity SKIN: No rashes CENTRAL NERVOUS SYSTEM: Alert and oriented 3, patient seems to be generally we ak otherwise no gross focal neurologic deficit her weakness seems to be symmetrical and generalized mostly. EXTREMITIES: No clubbing edema or cyanosis psychiatric: Normal mood affect and normal mental status examination Results - Laboratory Findings CBC and BMP: 06/27/24 23:06 06/27/24 23:06 PT/INR, D-dimer PT 11.1 sec (10.0-12.5) 06/27/24 23:06 INR 1.0 (<1.2) 06/27/24 23:06 Abnormal lab findings: Abnormal Labs 06/27/24 06/28/24 23:06 00:07 BUN 21 H Glucose 101 H Urine Blood Trace H Urine Bacteria Rare H - Diagnostic Findings Additional studies: CT of the brain, CT angiogram of the head, CT angiogram of the chest were all noted and as noted in HPI Assessment and Plan Assessment: Impression: Possible CVA, status post thrombolytic therapy Mild LV dysfunction with mild congestive heart failure as noted on CT angiogram of the chest ejection fraction 45%. Paroxysmal atrial fibrillation History of underlying COPD, inactive History of obstructive sleep apnea syndrome History of GERD requiring Cristy's fundoplication Benign essential hypertension Type 2 diabetes Diabetic neuropathy Dyslipidemia Recommendation: Continue present supportive care measures Continue to monitor in ICU Neurology to see on consultation GI and DVT prophylaxis Consider MRI of the brain, neurology to decide on this later today Monitor daily labs Patient to be placed on statins and on anticoagulation therapy for her paroxysmal atrial fibrillation Will continue to follow Time with Patient: Greater than 30
--- NOTE | 2024-06-28 13:09 | P.CNNES ---
History of Present Illness Consult date: 06/28/24 Requesting physician: Sung Pinto Reason for Consult: cva History of Present Illness: This is a 48-year-old woman with history of seizure status post resection in 2011, migraine, hypertension, tobacco use who presents to the emergency department for severely elevated blood pressure with weakness. She stated that she presented because she was weak and she felt her entire body was weak but may be may be the right was weaker than the left and that she then difficulty seeing out of the right eye as an if she is seeing out object over the right eye. She took her blood pressure was 220/119. It seems that her notified her that her speech was slurring. Stated that her her prior head was hurting but denies any nausea any vomiting any photophobia. She does have underlying history of migraine associated with stroke like symptoms. Denies any loss of consciousness that she is aware of her being notified. Denies any jerking of any extremities. Denies any tongue bite, urinary incontinence or bowel incontinence she stated the headache was somewhat aggravating. Denies any migraine associated with strokelike symptoms in the past. Get her last seizure was in 2011 and she is not on any medication. She stated that she has questionable A-fib in the past and she was on Eliquis for 1 month. She is on aspirin 81 mg daily at home. She smokes 2 packs a day. She uses marijuana. Denies any illicit drug use. She feels drastically better today compared to initial presentation. That she has underlying history of high blood pressure and she is on medication and her blood pressure at home systolic is in the 160s Per ED note, appears the patient had facial droop upper lower extremity weakness with slurred speech. It is reported that she was altered. It seems that the patient had an atrial for 12. She had CT of the head and CT angiography of the head and neck which was negative large vessel occlusion there is a suspicion of may be lacunar infarct in the posterior limb internal capsule that may be acute.. Therefore the ED physician spoke with the family members at length and patient received IV thrombolytic. In the ED the patient blood pressure was severely uncontrolled and she received multiple doses IV labetalol as well as was started on IV Cleviprex. Some other workup during this hospital visit consisted of: On presentation her blood pressure was 203/121 CBC with differential is unremarkable Initial serum glucose is 101. Otherwise rest of chemistry panel is unremarkable CT of the head is reported as new age-indeterminate lacunar infarct along the posterior limb of internal capsule. This may represent an acute infarct. I reviewed the CT and I felt over the left side and this could be subacute not acute in nature possibly CT angiography of the head and neck is reported as no large vessel occlusion or aneurysm. No acute finding in the arteries of the neck. 2D Echo was reported as ejection fraction 45 to 50%. Negative bubble study. Serum alcohol is less than 10 Review of Systems The positive and negative as per HPI. Past Medical History Past Medical History: Atrial Fibrillation, Heart Failure, COPD, GERD/Reflux, Hyperlipidemia, Hypertension, Pneumonia, Seizure Disorder, Sleep Apnea/CP AP/BIPAP Additional Past Medical History / Comment(s): Hx multiple kidney stones. Hx Pneumonia, vented-2011. Peptic ulcers. Sleep apnea-no device use. Bilateral Occipital Neuritis, headaches, vertigo. Neuropathy and edema bilateral lower legs, "legs give out at times". had brain surg. for convulsions 2012, still has "mini seizures daily", Hx diverticulitis, colon polyps and hemorrhoids. +Covid 11/08/21, mild symptoms, antibody treatment. CTS enrique History of Any Multi-Drug Resistant Organisms: None Reported Past Surgical History: Cholecystectomy, Heart Catheterization, Hernia Repair Additional Past Surgical History / Comment(s): Brain surgery in 2012 for seizures and headaches, right ovary/tube removed, D&C, Picc Line insertion and removal, kidney stone surgically removed, cystoscopy with ureteral stent, lithotripsy, Laproscopic Cristy Fundoplasty, colonoscopy, recent EGD Past Anesthesia/Blood Transfusion Reactions: No Reported Reaction, Motion Sickness Additional Past Anesthesia/Blood Transfusion Reaction / Comment(s): "Pulmonary edema during kidney surgery, was in induced coma for 3 days". Past Psychological History: Anxiety Additional Psychological History / Comment(s): Anxiety due to this procedure. Smoking Status: Current every day smoker Past Alcohol Use History: None Reported Additional Past Alcohol Use History / Comment(s): Current smoker, 2 ppd, since 1979. Past Drug Use History: Marijuana Additional Drug Use History / Comment(s): Marijuana, 3 or more joints daily. - Past Family History Father Family Medical History: AFIB, Diabetes Mellitus, Hypertension Additional Family Medical History / Comment(s): Pacemaker. Mother Family Medical History: Cancer Additional Family Medical History / Comment(s): of pancreatic cancer at the age of 58yrs. Maternal cousin had pancreatic cancer. Maternal uncle had lung cancer. Sister(s) Family Medical History: AICD/Pacemaker Additional Family Medical History / Comment(s): the patient has one sister with AICD. Second sister has no major medical problems. Patient's 1 brother that is healthy. Patient has one son and one daughter with no major medical problems. Medications and Allergies Home Medications Medication Instructions Recorded Confirmed Type carvediloL [Coreg] 25 mg PO DAILY 10/11/21 06/28/24 History Acetaminophen Tab [Tylenol] 650 mg PO Q6H #30 tab 10/10/22 06/28/24 Rx Allergies Allergy/AdvReac Type Severity Reaction Status Date / Time pregabalin [From Lyrica] Allergy Unknown Rash/Hives Verified 06/28/24 10:02 acetylcysteine Allergy Swelling Verified 06/28/24 10:02 hydromorphone HCl AdvReac headache Verified 06/28/24 10:02 [From Dilaudid] BERRIES Allergy Anaphylaxis Uncoded 06/28/24 10:02 Physical Examination - Vital Signs Vital Signs: Vital Signs Temp Pulse Resp BP Pulse Ox 06/28/24 12:00 97.6 F 67 16 175/99 95 06/28/24 11:00 51 L 12 163/92 99 06/28/24 10:00 61 16 156/88 97 06/28/24 09:00 55 L 14 175/92 97 06/28/24 08:45 63 19 169/88 94 L 06/28/24 08:30 65 14 180/100 97 06/28/24 08:15 59 L 12 175/89 97 06/28/24 08:00 97.7 F 62 13 188/104 99 06/28/24 07:45 62 20 169/96 98 06/28/24 07:30 67 13 168/98 99 06/28/24 07:15 52 L 15 176/89 98 06/28/24 07:00 55 L 13 175/97 97 06/28/24 06:45 56 L 12 179/87 98 06/28/24 06:30 60 12 180/88 94 L 06/28/24 06:15 65 15 166/87 97 06/28/24 06:00 70 12 172/89 97 06/28/24 05:45 67 14 172/84 97 06/28/24 05:30 65 13 164/88 98 06/28/24 05:15 64 22 144/91 98 06/28/24 05:00 66 14 159/84 97 06/28/24 04:45 60 14 161/83 98 06/28/24 04:30 60 16 167/91 98 06/28/24 04:15 70 18 166/105 97 06/28/24 04:00 98.0 F 68 14 160/98 96 06/28/24 03:45 72 16 175/92 98 06/28/24 03:30 68 14 182/91 96 06/28/24 03:15 72 18 168/99 97 06/28/24 03:00 63 16 187/101 98 06/28/24 02:45 72 13 171/106 97 06/28/24 02:30 97.6 F 74 18 185/113 96 06/28/24 02:20 74 16 06/28/24 02:12 72 18 170/75 97 06/28/24 02:00 61 14 172/91 98 06/28/24 01:45 68 14 170/94 97 06/28/24 01:30 67 12 150/88 95 06/28/24 01:15 74 19 181/93 96 06/28/24 01:09 72 16 188/96 97 06/28/24 01:00 70 20 188/96 85 L 06/28/24 00:55 73 20 178/98 98 06/28/24 00:45 75 20 192/104 94 L 06/28/24 00:30 77 20 181/93 98 06/28/24 00:15 71 20 183/88 97 06/28/24 00:00 77 22 163/97 97 06/27/24 23:50 80 18 184/92 96 06/27/24 23:35 65 22 209/106 06/27/24 23:20 79 20 196/100 96 06/27/24 23:04 80 20 203/121 98 06/27/24 23:03 98.6 F 67 22 203/121 98 Intake and Output 06/27/24 06/28/24 06/28/24 22:59 06:59 14:59 Intake Total 500 500 Output Total 100 0 Balance 400 500 Intake: IV 500 Sodium Chloride 0.9% 1, 500 000 ml @ 100 mls/hr IV . Q10H ARLINE Rx#:[id number] Intake, IV Titration 500 Amount Sodium Chloride 0.9% 1, 500 000 ml @ 100 mls/hr IV . Q10H ARLINE Rx#:[id number] Output: Urine 100 0 Other: Voiding Method External Catheter Toilet # Voids 1 Weight 93.44 kg GENERAL: The patient is lying in bed and is not in acute distress. HENT: Supple neck. NEUROLOGICAL: Higher mental function: The patient is slightly drowsy, oriented to self, place and time. Patient is able to identify objects correctly such as pen watch glasses. Patient is following commands. No aphasia and no neglect. Cranial nerves: The pupils are round, equal and reactive to light and accommodation. Visual pulliam are full to confrontation throughout. Extraocular movement is intact no nystagmus is noted. Facial sensation is normal to touch throughout. The facial strength is normal throughout. Hearing is normal bilaterally to hand rub. Tongue is midline and moved [id number] without any difficulty. No dysarthria is noted. Shoulder shrug is normal bilaterally. Motor: The strength is 5 over 5 throughout. Normal tone and bulk. Cerebellum: Normal finger to nose bilaterally. Sensation: Sensation is normal to touch throughout. Reflexes (right/left): 2+ throughout. Plantars are deferred since patient compliance performing exam. Results - Laboratory Findings CBC and BMP: 06/27/24 23:06 06/27/24 23:06 Abnormal Lab Findings: Abnormal Labs 06/27/24 06/28/24 23:06 00:07 BUN 21 H Glucose 101 H Urine Blood Trace H Urine Bacteria Rare H Assessment and Plan Assessment: This is a 48-year-old woman with history of seizure, hypertension that is uncontrolled at home, migraine, questionable proximal atrial fibrillation that was briefly on Eliquis for 1 month according to the patient and that was discontinued since the A-fib was questionable, type 2 diabetes, diabetic neuropathy presented emergency department because of weakness of the upper lower extremities mostly the right more than left that the patient felt with slurring the speech, facial weakness confusion and her blood pressure was uncontrolled in the 220s over 119 when she checked at home and had a headache with visual disturbance over the right eye. Her blood pressure has been uncontrolled on presentation. NIH stroke score in the ED was [address] of the head which showed questionable left acute lacunar stroke. CT angiography of the head and neck was unremarkable for large vessel occlusion. Patient received IV thrombolytic Acute ischemic stroke post IV thrombolytic. Patient had NIH stroke scale by the ED team of 12 and had weakness over the right and left extremities with facial weakness, dysarthria and confusion. Cannot rule out hypertensive encephalopathy Hypertensive emergency History of seizure and last seizure was in 2011 and patient stated that she had a resection in the right occipital region at [facility] Underlying history of migraine Diabetes mellitus Diabetic neuropathy Questionable A-fib and she was on Eliquis for 1 month History of hypertension History of cognitive heart failure Tobacco use and she smokes 2 packs a day for years Plan: He had a repeat CT head 24-hour post IV thrombolytic. If negative for any bleed then recommend giving patient home dose of aspirin 81 mg and to start the patient on Plavix 75 mg daily. Currently the patient is on Lipitor 80 mg nightly for secondary stroke prophylaxis that was started by the ED physician. I ordered MRI of the brain I also ordered a routine EEG Continue neurochecks Cardiac monitoring PT OT and PLUG OVER[employer] MACHINE TENDER are consulted With cardiology team because of her history of questionable A-fib in the past that she reports new strokelike symptoms. If she does have underlying history of A-fib then recommend anticoagulation during this admission to be started and her MRI of the brain will decide when is the safe time to start the anticoagulation. If still questionable A-fib in the past recommend a loop recorder or event monitor for 30 days. I notified the patient that I can start her on Topamax which helps with migraines as well as has antiepileptic benefit. I notified her about the side effects but she refused because of the side effects. She wants to be on Tylenol as needed. Continue controlling the blood pressure per IV thrombolytic guideline. Will defer the rest of the medical management to primary and other specialist DVT prophylaxis use SCDs The plan discussed with the patient and her nurse Thank for the consultation Time with Patient: Greater than 30
[2024-06-28 13:21] VITALS: BMI 38.9
--- NOTE | 2024-06-28 20:15 | P.CRDCN ---
History of Present Illness Consult date: 06/28/24 Chief complaint: HTN History of present illness: The patient is a pleasant 48-year-old female patient with a past medical history significant for coronary artery disease CAD and hypertension and hypertensive heart disease as well as nonischemic cardiomyopathy was EF between 40 to 45% as well as history of LBBB and also overweight and diabetes and diabetic neuropathy as well as a history of "paroxysmal atrial fibrillation" was admitted to the intensive care unit after she presented to the hospital with a stroke and that she received thrombolytics. The patient somewhat is a poor historian. She presented to the emergency department earlier today with dislodged speech and upper and lower extremities weakness and facial throbbing. The CT scan showed possible new infarct and she received thrombolytics with improvement in her symptoms. When she presented to the emergency department she was hypertensive with a systolic pressure exceeding 200 mmHg. Subsequently the patient was admitted to the intensive care unit. We consulted to see the patient for further evaluation and treatment of hypertension. The neurology service would like to keep the systolic blood pressure elevated and not exceeding 180 mmHg and for that reason she was placed on clevidipine as needed. She was on carvedilol at home and that was reinitiated and continued. She is bradycardic with heart rate in the 50s. The EKG showed LBBB which is not new to the patient. She underwent a CT scan of the chest which did not show any evidence of dissection. Also she underwent a CT scan of the head and neck which showed no significant abnormalities. Beside that the patient remains asymptomatic in terms of chest pain or chest discomfort or shortness of antonette The physical examination is remarkable for elevated blood pressure and marginally low heart rate with regular rate and rhythm and soft systolic murmur at the right upper sternal border with clear breathing sounds bilaterally and no carotid bruit but she has bilateral lower extremities edema noted Assessment Acute stroke treated with thrombolytics Hypertension emergency Coronary artery disease Nonischemic cardiomyopathy LBBB Atrial fibrillation by history Multiple comorbid conditions Plan Continue blood pressure management and consider adjusting the oral blood pressure medications if the systolic pressure exceeding 180 mmHg Consider starting the patient on antiplatele Consider ruling out atrial fibrillation Consider ruling out cardiac source of embolization including PFO Follow-up on the echocardiogram which was performed earlier Follow-up with the patient Past Medical History Past Medical History: Atrial Fibrillation, Heart Failure, COPD, GERD/Reflux, Hyperlipidemia, Hypertension, Pneumonia, Seizure Disorder, Sleep Apnea/CPAP/BIPAP Additional Past Medical History / Comment(s): Hx multiple kidney stones. Hx Pneumonia, vented-2011. Peptic ulcers. Sleep apnea-no device use. Bilateral Occipital Neuritis, headaches, vertigo. Neuropathy and edema bilateral lower legs, "legs give out at times". had brain surg. for convulsions 2012, still has "mini seizures daily", Hx diverticulitis, colon polyps and hemorrhoids. +Covid , mild symptoms, antibody treatment. CTS enrique History of Any Multi-Drug Resistant Organisms: None Reported Past Surgical History: Cholecystectomy, Heart Catheterization, Hernia Repair Additional Past Surgical History / Comment(s): Brain surgery in 2012 for seizures and headaches, right ovary/tube removed, D&C, Picc Line insertion and removal, kidney stone surgically removed, cystoscopy with ureteral stent, lithotripsy, Laproscopic Cristy Fundoplasty, colonoscopy, recent EGD Past Anesthesia/Blood Transfusion Reactions: No Reported Reaction, Motion Sickness Additional Past Anesthesia/Blood Transfusion Reaction / Comment(s): "Pulmonary edema during kidney surgery, was in induced coma for 3 days". Past Psychological History: Anxiety Additional Psychological History / Comment(s): Anxiety due to this procedure. Smoking Status: Current every day smoker Past Alcohol Use History: None Reported Additional Past Alcohol Use History / Comment(s): Current smoker, 2 ppd, since 1979. Past Drug Use History: Marijuana Additional Drug Use History / Comment(s): Marijuana, 3 or more joints daily. - Past Family History Father Family Medical History: AFIB, Diabetes Mellitus, Hypertension Additional Family Medical History / Comment(s): Pacemaker. Mother Family Medical History: Cancer Additional Family Medical History / Comment(s): of pancreatic cancer at the age of 58yrs. Maternal cousin had pancreatic cancer. Maternal uncle had lung cancer. Sister(s) Family Medical History: AICD/Pacemaker Additional Family Medical History / Comment(s): the patient has one sister with AICD. Second sister has no major medical problems. Patient's 1 brother that is healthy. Patient has one son and one daughter with no major medical problems. Medications and Allergies Home Medications Medication Instructions Recorded Confirmed Type carvediloL [Coreg] 25 mg PO DAILY 10/11/21 06/28/24 History Acetaminophen Tab [Tylenol] 650 mg PO Q6H #30 tab 10/10/22 06/28/24 Rx Allergies Allergy/AdvReac Type Severity Reaction Status Date / Time pregabalin [From Lyrica] Allergy Unknown Rash/Hives Verified 06/28/24 10:02 acetylcysteine Allergy Swelling Verified 06/28/24 10:02 hydromorphone HCl AdvReac headache Verified 06/28/24 10:02 [From Dilaudid] BERRIES Allergy Anaphylaxis Uncoded 06/28/24 10:02 Physical Exam Vitals: Vital Signs Temp Pulse Resp BP Pulse Ox 06/28/24 19:00 55 L 17 171/91 94 L 06/28/24 18:00 59 L 16 160/87 94 L 06/28/24 17:00 59 L 17 157/90 92 L 06/28/24 16:00 98.1 F 56 L 17 159/87 93 L 06/28/24 15:00 58 L 16 159/88 95 06/28/24 14:00 54 L 15 159/88 96 06/28/24 13:00 69 14 182/97 94 L 06/28/24 12:00 97.6 F 67 16 175/99 95 06/28/24 11:00 51 L 12 163/92 99 06/28/24 10:00 61 16 156/88 97 06/28/24 09:00 55 L 14 175/92 97 06/28/24 08:45 63 19 169/88 94 L 06/28/24 08:30 65 14 180/100 97 06/28/24 08:15 59 L 12 175/89 97 06/28/24 08:00 97.7 F 62 13 188/104 99 06/28/24 07:45 62 20 169/96 98 06/28/24 07:30 67 13 168/98 99 06/28/24 07:15 52 L 15 176/89 98 06/28/24 07:00 55 L 13 175/97 97 06/28/24 06:45 56 L 12 179/87 98 06/28/24 06:30 60 12 180/88 94 L 06/28/24 06:15 65 15 166/87 97 06/28/24 06:00 70 12 172/89 97 06/28/24 05:45 67 14 172/84 97 06/28/24 05:30 65 13 164/88 98 06/28/24 05:15 64 22 144/91 98 06/28/24 05:00 66 14 159/84 97 06/28/24 04:45 60 14 161/83 98 06/28/24 04:30 60 16 167/91 98 06/28/24 04:15 70 18 166/105 97 06/28/24 04:00 98.0 F 68 14 160/98 96 06/28/24 03:45 72 16 175/92 98 06/28/24 03:30 68 14 182/91 96 06/28/24 03:15 72 18 168/99 97 06/28/24 03:00 63 16 187/101 98 06/28/24 02:45 72 13 171/106 97 06/28/24 02:30 97.6 F 74 18 185/113 96 06/28/24 02:20 74 16 06/28/24 02:12 72 18 170/75 97 06/28/24 02:00 61 14 172/91 98 06/28/24 01:45 68 14 170/94 97 06/28/24 01:30 67 12 150/88 95 06/28/24 01:15 74 19 181/93 96 06/28/24 01:09 72 16 188/96 97 06/28/24 01:00 70 20 188/96 85 L 06/28/24 00:55 73 20 178/98 98 06/28/24 00:45 75 20 192/104 94 L 06/28/24 00:30 77 20 181/93 98 06/28/24 00:15 71 20 183/88 97 06/28/24 00:00 77 22 163/97 97 06/27/24 23:50 80 18 184/92 96 06/27/24 23:35 65 22 209/106 06/27/24 23:20 79 20 196/100 96 06/27/24 23:04 80 20 203/121 98 06/27/24 23:03 98.6 F 67 22 203/121 98 Intake and Output 06/28/24 06/28/24 06/28/24 06:59 14:59 22:59 Intake Total 500 700 Output Total 100 0 0 Balance 400 700 0 Intake: IV 700 Sodium Chloride 0.9% 1, 700 000 ml @ 100 mls/hr IV . Q10H [facility] Rx#:[id number] Intake, IV Titration 500 Amount Sodium Chloride 0.9% 1, 500 000 ml @ 100 mls/hr IV . Q10H [facility] Rx#:[id number] Output: Urine 100 0 0 Other: Voiding Method External Catheter Toilet Toilet # Voids 1 1 # Bowel Movements 1 Weight 93.44 kg 93.44 kg Results 06/27/24 23:06 06/27/24 23:06 Cardiac Enzymes 06/27/24 06/27/24 Range/Units 23:06 23:06 AST 20 (14-36) U/L Troponin I <0.012 (0.000-0.034) ng/mL Coagulation 06/27/24 Range/Units 23:06 PT 11.1 (10.0-12.5) sec APTT 24.7 (22.0-30.0) sec CBC 06/27/24 Range/Units 23:06 WBC 9.4 (3.8-10.6) k/uL RBC 5.11 (3.80-5.40) m/uL Hgb 15.3 (11.4-16.0) gm/dL Hct 45.9 (34.0-46.0) % Plt Count 196 (150-450) k/uL Comprehensive Metabolic Panel 06/27/24 Range/Units 23:06 Sodium 141 (137-145) mmol/L Potassium 4.4 (3.5-5.1) mmol/L Chloride 106 (98-107) mmol/L Carbon Dioxide 27 (22-30) mmol/L BUN 21 H (7-17) mg/dL Creatinine 0.77 (0.52-1.04) mg/dL Glucose 101 H (74-99) mg/dL Calcium 9.9 (8.4-10.2) mg/dL AST 20 (14-36) U/L ALT 12 (4-34) U/L Alkaline Phosphatase 82 (38-126) U/L Total Protein 7.7 (6.3-8.2) g/dL Albumin 4.6 (3.5-5.0) g/dL Current Medications Generic Name Dose Route Start Last Admin Trade Name Freq PRN Reason Stop Dose Admin Acetaminophen 650 mg 06/28/24 11:33 06/28/24 18:29 Acetaminophen Tab 325 Mg Tab PO 650 mg Q6H PRN Administration Mild Pain or Fever >= 100.5 Albuterol/Ipratropium 3 ml 06/28/24 01:01 Ipratropium-Albuterol 3 Ml Neb INHALATION RT-Q4H PRN Shortness Of Breath Or Wheezing Atorvastatin Calcium 80 mg 06/28/24 21:00 Atorvastatin 80 Mg Tab PO HS [facility] Carvedilol 25 mg 06/28/24 11:30 06/28/24 11:51 Carvedilol 12.5 Mg Tab PO 25 mg DAILY [facility] Administration Clevidipine 25 mg/ IV Solution 50 mls @ 2 mls/hr 06/28/24 01:00 06/28/24 08:12 IV Not Given .Q24H [facility] Protocol 1 MG/HR Lorazepam 1 mg 06/28/24 01:01 Lorazepam 2 Mg/Ml Inj IV Q6HR PRN Anxiety Naloxone HCl 0.2 mg 06/28/24 01:01 Naloxone 0.4 Mg/Ml 1 Ml Vial IV Q2M PRN Opioid Reversal Pantoprazole Sodium 40 mg 06/29/24 07:30 Pantoprazole 40 Mg Tablet PO AC-BRKT [facility] Intake and Output 06/28/24 06/28/24 06/28/24 06:59 14:59 22:59 Intake Total 500 700 Output Total 100 0 0 Balance 400 700 0 Intake: IV 700 Sodium Chloride 0.9% 1, 700 000 ml @ 100 mls/hr IV . Q10H [facility] Rx#:[id number] Intake, IV Titration 500 Amount Sodium Chloride 0.9% 1, 500 000 ml @ 100 mls/hr IV . Q10H [facility] Rx#:[id number] Output: Urine 100 0 0 Other: Voiding Method External Catheter Toilet Toilet # Voids 1 1 # Bowel Movements 1 Weight 93.44 kg 93.44 kg Patient Weight 06/29/24 06:59 Weight 93.44 kg 06/27/24 23:06 06/27/24 23:06
[2024-06-28] MEDS: ATORVASTATIN 80 MG TAB PO SCH (21:07)
--- NOTE | 2024-06-28 21:46 | EEG ---
ELECTROENCEPHALOGRAM REPORT CLINICAL HISTORY: This is a 48-year-old woman with history of seizure with episode of altered mental status. The video EEG is obtained to evaluate for seizure epileptiform activity. RELEVANT MEDICATION: The patient is not on any antiseizure medication, was given Ativan yesterday in the ED. EEG TYPE: A routine 21-channel EEG with video using the 10/20 electrode placement system. DESCRIPTION: Wakefulness and drowsiness are obtained. During awake state, the posterior-dominant rhythm consists of [id number] voltage of 10 hertz activity that is well modulated and well sustained. There is diffuse excessive beta activity, but no K-complex is noted. There is no focal slowing. As stated earlier, there is diffuse excessive beta activity which could be related to benzodiazepine versus stage 2 sleep architecture. There is no focal slowing. Interictal and ictal is none. ACTIVATION PROCEDURE: Photic stimulation and hyperventilation are not performed. CLINICAL INTERPRETATION: This is a normal routine EEG. There is no focal slowing, epileptiform discharge, or seizure on the EEG. The diffuse excessive beta activity could be due to medication effect (benzos) versus stage 2 sleep architecture. A normal routine EEG does not rule out underlying epilepsy. Clinical correlation is recommended. MMODL / IJN: [id number] /
[2024-06-29 05:41] LABS: Basophils % (A) 1 %; Eosinophils # (A) 0.2 k/uL (0-0.7); Eosinophils % (A) 4 %; HCT 46.8 % (34.0-46.0); HGB 15.7 gm/dL (11.4-16.0); Lymphocytes # (A) 2.3 k/uL (1.0-4.8); Lymphocytes % (A) 35 %; MCH 30.3 pg (25.0-35.0); MCHC 33.5 g/dL (31.0-37.0); MCV 90.3 fL (80.0-100.0); Mean Platelet Volume 8.3; Monocytes # (A) 0.2 k/uL (0-1.0); Monocytes % (A) 3 %; Neutrophils # (A) 3.6 k/uL (1.3-7.7); Neutrophils % (A) 56 %; Platelet Count 163 k/uL (150-450); RBC 5.18 m/uL (3.80-5.40); RDW 13.8 % (11.5-15.5); WBC 6.5 k/uL (3.8-10.6)
[2024-06-29 06:01] LABS: ALT 11 U/L (4-34); AST 19 U/L (14-36); African American GFR (CKD) >90 (>60 ml/min/1.73 sqM); Albumin 4.5 g/dL (3.5-5.0); Alkaline Phosphatase 82 U/L (38-126); Anion Gap 7 mmol/L; Blood Urea Nitrogen 9 mg/dL (7-17); Calcium 9.8 mg/dL (8.4-10.2); Carbon Dioxide 25 mmol/L (22-30); Chloride 110 mmol/L (98-107); Glucose 96 mg/dL (74-99); Magnesium 1.8 mg/dL (1.6-2.3); Non-African American GFR(CKD) >90 (>60 ml/min/1.73 sqM); Phosphorus 3.3 mg/dL (2.5-4.5); Potassium 3.9 mmol/L (3.5-5.1); Sodium 142 mmol/L (137-145); Total Protein 7.3 g/dL (6.3-8.2)
--- NOTE | 2024-06-29 07:33 | P.PN ---
Subjective Progress Note Date: 06/29/24 Principal diagnosis: Hypertension emergency The patient is a pleasant 48-year-old female patient with a past medical history significant for coronary artery disease CAD and hypertension and hypertensive heart disease as well as nonischemic cardiomyopathy was EF between 40 to 45% as well as history of LBBB and also overweight and diabetes and diabetic neuropathy as well as a history of "paroxysmal atrial fibrillation" was admitted to the intensive care unit after she presented to the hospital with a stroke and that she received thrombolytics. The patient somewhat is a poor historian. She presented to the emergency department earlier today with dislodged speech and upper and lower extremities weakness and facial throbbing. The CT scan showed possible new infarct and she received thrombolytics with improvement in her symptoms. When she presented to the emergency department she was hypertensive with a systolic pressure exceeding 200 mmHg. Subsequently the patient was admitted to the intensive care unit. We consulted to see the patient for further evaluation and treatment of hypertension. The neurology service would like to keep the systolic blood pressure elevated and not exceeding 180 mmHg and for that reason she was placed on clevidipine as needed. She was on carvedilol at home and that was reinitiated and continued. She is bradycardic with heart rate in the 50s. The EKG showed LBBB which is not new to the patient. She underwent a CT scan of the chest which did not show any evidence of dissection. Also she underwent a CT scan of the head and neck which showed no significant abnormalities. Beside that the patient remains asymptomatic in terms of chest pain or chest discomfort or shortness of antonette. The physical examination is remarkable for elevated blood pressure and marginally low heart rate with regular rate and rhythm and soft systolic murmur at the right upper sternal border with clear breathing sounds bilaterally and no carotid bruit but she has bilateral lower extremities edema noted June 29, 2024 The patient was seen and evaluated this morning. Overall she seems to be stable in terms of chest pain or chest discomfort and no neurological symptoms but the pressure remains elevated and consistent with stage II hypertension. She is on Cleviprex IV. I am going to start the patient on losartan at 25 mg p.o. daily in addition to carvedilol and try to wean the patient from a Cleviprex. She need to be started on antiplatelet and that to be addressed by the neurology team later on today. The echo showed mildly impaired LV function with EF between 45 to 50%. Down the line she need to be ruled out for PFO and also rule out atrial fibrillation and assess the possible benefits of anticoagulation. Examination is remarkable for regular rhythm with a soft systolic murmur and clear breathing sounds bilaterally and bilateral lower extremities edema Assessment Acute stroke treated with thrombolytics Hypertension emergency Coronary artery disease Nonischemic cardiomyopathy LBBB Atrial fibrillation by history Multiple comorbid conditions Plan Continue blood pressure management and consider adjusting the oral blood pressure medications if the systolic pressure exceeding 180 mmHg Consider starting the patient on antiplatele Consider ruling out atrial fibrillation Consider ruling out cardiac source of embolization including PFO Start the patient on losartan Follow-up with the patient Objective - Vital Signs Vital signs: Vital Signs Temp 97.4 F L 06/29/24 04:00 Pulse 84 06/29/24 06:00 Resp 15 06/29/24 06:00 BP 171/105 06/29/24 06:00 Pulse Ox 94 L 06/29/24 06:00 FiO2 Intake & Output 06/28/24 06/29/24 06/29/24 18:59 06:59 18:59 Intake Total 700 70.134 Output Total 0 2950 Balance 700 -2879.866 Weight 93.44 kg 94 kg Intake: IV 700 Sodium Chloride 0.9% 1, 700 000 ml @ 100 mls/hr IV . Q10H [facility] Rx#:[id number] Intake, IV Titration 70.134 Amount Clevidipine Butyrate 25 30.134 mg In Empty Bag 1 bag @ 1 MG/HR 2 mls/hr IV .Q24H [facility] Rx#:[id number] Sodium Chloride 0.9% 1, 40 000 ml @ 100 mls/hr IV . Q10H [facility] Rx#:[id number] Output: Urine 0 2950 Other: Voiding Method Toilet External Catheter # Voids 1 2 # Bowel Movements 1 - Labs CBC & Chem 7: 06/29/24 05:16 06/29/24 05:16 Labs: Abnormal Lab Results - Last 24 Hours (Table) 06/29/24 06/29/24 Range/Units 05:16 05:16 Hct 46.8 H (34.0-46.0) % Chloride 110 H (98-107) mmol/L
[2024-06-29] MEDS: LOSARTAN 25 MG TAB PO SCH (08:24)
[2024-06-29] MEDS: PANTOPRAZOLE 40 MG TABLET PO SCH (08:28)
[2024-06-29] MEDS: amLODIPine 5 MG TAB PO SCH (11:30)
[2024-06-29] MEDS: hydrALAZINE HCL 25 MG TAB PO SCH (12:30)
--- NOTE | 2024-06-29 13:02 | CT ---
EXAMINATION TYPE: CT brain wo con DATE OF EXAM: 06/28/2024 COMPARISON: 06/27/2024 HISTORY: suspect acute CVA Unenhanced CT of the brain was performed. There is the suggestion of sulcal effacement involving the bilateral frontal lobes which could be lakhwinder hnical in nature however bifrontal CVA difficult to exclude. Correlate clinically and with MRI. There is no evidence for intracranial hemorrhage or sulcal effacement. The ventricles are midline. No mass effects are seen. Images of occipital craniotomy. If symptoms persist consider MRI as clinically warranted. IMPRESSION: 1. There is the suggestion of sulcal effacement involving the bilateral frontal lobes which could be technical in nature however bifrontal CVA difficult to exclude. Correlate clinically and with MRI.
--- NOTE | 2024-06-29 13:04 | P.PN ---
Subjective Progress Note Date: 06/29/24 I am following up with the patient and she denies any focal deficit. She feels she is just generalized weak.. The nurse her blood pressure was elevated yesterday as well. Objective - Vital Signs Vital signs: Vital Signs Temp 98.2 F 06/29/24 08:15 Pulse 67 06/29/24 11:00 Resp 13 06/29/24 11:00 BP 151/108 06/29/24 11:00 Pulse Ox 98 06/29/24 11:00 FiO2 Intake & Output 06/28/24 06/29/24 06/29/24 18:59 06:59 18:59 Intake Total 700 70.134 833.233 Output Total 0 2950 800 Balance 700 -2879.866 33.233 Weight 93.44 kg 94 kg Intake: IV 700 Sodium Chloride 0.9% 1, 700 000 ml @ 100 mls/hr IV . Q10H [facility] Rx#:[id number] Intake, IV Titration 70.134 53.233 Amount Clevidipine Butyrate 25 30.134 33.233 mg In Empty Bag 1 bag @ 1 MG/HR 2 mls/hr IV .Q24H [facility] Rx#:[id number] Sodium Chloride 0.9% 1, 40 20 000 ml @ 100 mls/hr IV . Q10H [facility] Rx#:[id number] Oral 780 Output: Urine 0 2950 800 Other: Voiding Method Toilet External Catheter Bedside Commode # Voids 1 2 3 # Bowel Movements 1 - Exam GENERAL: The patient is lying in bed and is not in acute distress. HENT: Supple neck. NEUROLOGICAL: Higher mental function: The patient is slightly drowsy, oriented to self, place and time. Patient is able to identify objects correctly such as pen watch glasses. Patient is following commands. No aphasia and no neglect. Cranial nerves: The pupils are round, equal and reactive to light and accommodation. Visual pulliam are full to confrontation throughout. Extraocular movement is intact no nystagmus is noted. Facial sensation is normal to touch throughout. The facial strength is normal throughout. Hearing is normal bilaterally to hand rub. Tongue is midline and moved [id number] without any difficulty. No dysarthria is noted. Shoulder shrug is normal bilaterally. Motor: The strength is 5 over 5 throughout. Normal tone and bulk. Cerebellum: Normal finger to nose bilaterally. Sensation: Sensation is normal to touch throughout. Reflexes (right/left): 2+ throughout. Plantars are deferred since patient compliance performing exam. Some other workup during this hospital visit consisted of: On presentation her blood pressure was 203/121 CBC with differential is unremarkable Initial serum glucose is 101. Otherwise rest of chemistry panel is unremarkable CT of the head is reported as new age-indeterminate lacunar infarct along the posterior limb of internal capsule. This may represent an acute infarct. I reviewed the CT and I felt over the left side and this could be subacute not acute in nature possibly CT angiography of the head and neck is reported as no large vessel occlusion or aneurysm. No acute finding in the arteries of the neck. 2D Echo was reported as ejection fraction 45 to 50%. Negative bubble study. Serum alcohol is less than [address] head completed and pending official report. I felt there is no acute or subacute stroke or any bleed Routine EEG: Normal. - Labs CBC & Chem 7: 06/29/24 05:16 06/29/24 05:16 Labs: Abnormal Lab Results - Last 24 Hours (Table) 06/29/24 06/29/24 Range/Units 05:16 05:16 Hct 46.8 H (34.0-46.0) % Chloride 110 H (98-107) mmol/L Assessment and Plan Assessment: This is a 48-year-old woman with history of seizure, hypertension that is uncontrolled at home, migraine, questionable proximal atrial fibrillation that was briefly on Eliquis for 1 month according to the patient and that was discontinued since the A-fib was questionable, type 2 diabetes, diabetic neuropathy presented emergency department because of weakness of the upper lower extremities mostly the right more than left that the patient felt with slurring the speech, facial weakness confusion and her blood pressure was uncontrolled in the 220s over 119 when she checked at home and had a headache with visual disturbance over the right eye. Her blood pressure has been uncontrolled on presentation. NIH stroke score in the ED was [address] of the head which showed questionable left acute lacunar stroke. CT angiography of the head and neck was unremarkable for large vessel occlusion. Patient received IV thrombolytic Acute ischemic stroke post IV thrombolytic. Patient had NIH stroke scale by the ED team of 12 and had weakness over the right and left extremities with facial weakness, dysarthria and confusion---resolved. Cannot rule out hypertensive encephalopathy Hypertensive emergency History of seizure and last seizure was in 2011 and patient stated that she had a resection in the right occipital region at [facility] Underlying history of migraine Diabetes mellitus Diabetic neuropathy Questionable A-fib and she was on Eliquis for 1 month History of hypertension History of cognitive heart failure Tobacco use and she smokes 2 packs a day for years Plan: Had Repeat CT head 24-hour post IV thrombolytic and pending official report. If negative for any bleed then recommend giving patient home dose of aspirin 81 mg and to start the patient on Plavix 75 mg daily. Currently the patient is on Lipitor 80 mg nightly for secondary stroke prophylaxis that was started by the ED physician. Pending MRI of the brain Ordered lipid panels. Continue neurochecks Cardiac monitoring PT OT and SPECIAL PROCEDURES NURSE are consulted With cardiology team because of her history of questionable A-fib in the past that she reports new strokelike symptoms. If she does have underlying history of A-fib then recommend anticoagulation during this admission to be started and her MRI of the brain will decide when is the safe time to start the anticoagulation. If still questionable A-fib in the past recommend a loop recorder or event monitor for 30 days. Cardiology is consulted for the concern of atrial fibrillation and they stated rule out A-fib but recommended starting antiplatelets. Recommend normotensive blood pressure Will defer the rest of the medical management to primary and other specialist DVT prophylaxis use SCDs The plan discussed with the patient and her nurse Time with Patient: Less than 30
--- NOTE | 2024-06-29 13:07 | P.PN ---
Subjective Progress Note Date: 06/29/24 Principal diagnosis: Acute ischemic CVA This is a 48-year-old female with history of multiple medical problems including hypertension, history of diastolic congestive heart failure, paroxysmal atrial fibrillation, COPD, obstructive sleep apnea syndrome, benign essential hyperte nsion, type 2 diabetes with diabetic neuropathy, history of seizure disorder, chronic headaches, presented to the ER with multiple neurological symptoms including headache, slurred speech, upper and lower extremities weakness, facial drooping, and she had a CT of the brain suggestive of the new age indeterminate lacunar infarct along the posterior limb of the internal capsule. May have represented an acute infarct, and the patient received thrombolytic therapy in the ER, and based on the protocol, she had to be placed in the ICU overnight for 24 hours. NIH stroke scale on admission was 11. Onset of her symptoms were within less than 4.5 hours, hence tPA was given. According to nurses taking care of the patient, patient felt better overnight, however she continues to have profound significant bilateral weakness in her upper and lower extremities. Patient denies any specific symptoms except for some headache earlier this morning, no slurred speech, no mental status change, and she definitely does not have any facial asymmetry. Patient seems to be generally weak mostly. WBC count is 9.4 hemoglobin 15.3 basic metabolic profile is normal and renal profile is normal. CT angiogram of the chest showed mostly cardiomegaly and mild pulmonary vascular congestion. No evidence of thoracic aortic aneurysm or dissection. No evidence of pulmonary embolism CT angiogram of the neck and head showed no significant abnormality Patient was evaluated today on 06/29/2024, patient remains in the ICU, blood pressure remains poorly controlled, she is on Cleviprex at 3 mg/h. She is also on Coreg, and on Cozaar. Blood pressure remains in the 170 range over 110, hence I added hydralazine 25 mg p.o. twice daily and amlodipine 5 mg daily. [place] to discontinue Cleviprex. Neurologically the patient is significantly better today, denies any specific neurological complaints, and her weakness has completely resolved. Patient is supposed to have repeat CT of the brain today, and if negative for bleed, the patient could be transferred out of the ICU and placed on mostly dual platelet therapy as recommended by neurology. CBC is rather normal WBC count is 6.5 hemoglobin 15.7 electrolytes are normal renal profile is normal Objective - Vital Signs Vital signs: Vital Signs Temp 98.2 F 06/29/24 08:15 Pulse 67 06/29/24 11:00 Resp 13 06/29/24 11:00 BP 151/108 06/29/24 11:00 Pulse Ox 98 06/29/24 11:00 FiO2 Intake & Output 06/28/24 06/29/24 06/29/24 18:59 06:59 18:59 Intake Total 700 70.134 833.233 Output Total 0 2950 800 Balance 700 -2879.866 33.233 Weight 93.44 kg 94 kg Intake: IV 700 Sodium Chloride 0.9% 1, 700 000 ml @ 100 mls/hr IV . Q10H ARLINE Rx#:[id number] Intake, IV Titration 70.134 53.233 Amount Clevidipine Butyrate 25 30.134 33.233 mg In Empty Bag 1 bag @ 1 MG/HR 2 mls/hr IV .Q24H ARLINE Rx#:[id number] Sodium Chloride 0.9% 1, 40 20 000 ml @ 100 mls/hr IV . Q10H ARLINE Rx#:[id number] Oral 780 Output: Urine 0 2950 800 Other: Voiding Method Toilet External Catheter Bedside Commode # Voids 1 2 3 # Bowel Movements 1 - Exam GENERAL EXAM: Revealed 48-year-old female, not in any distress HEAD: Normocephalic. EENT: PERRLA, RI, nonicteric, neck masses no JVD. CHEST: No chest wall deformity. LUNGS: Clear bilaterally no crackles rhonchi or wheezes CVS: S1 and S2 normal with no audible murmur, regular rhythm. ABDOMEN: No hepatosplenomegaly, normal bowel sounds, no guarding or rigidity. SPINE: No scoliosis or deformity SKIN: No rashes CENTRAL NERVOUS SYSTEM: Alert and oriented 3, no gross focal neurologic deficit EXTREMITIES: No clubbing edema or cyanosis psychiatric: Normal mood affect and normal mental status examination - Labs CBC & Chem 7: 06/29/24 05:16 06/29/24 05:16 Labs: Abnormal Lab Results - Last 24 Hours (Table) 06/29/24 06/29/24 Range/Units 05:16 05:16 Hct 46.8 H (34.0-46.0) % Chloride 110 H (98-107) mmol/L Assessment and Plan Assessment: Impression: Ischemic CVA, status post thrombolytic therapy, with complete resolution of her neurological symptoms in the last 24 hours. Mild LV dysfunction with mild congestive heart failure as noted on CT angiogram of the chest ejection fraction 45%. Paroxysmal atrial fibrillation History of underlying COPD, inactive History of obstructive sleep apnea syndrome History of GERD requiring Cristy's fundoplication Benign essential hypertension Type 2 diabetes Diabetic neuropathy Dyslipidemia Recommendation: Continue present supportive care measures Increase blood pressure medications and hopefully discontinue Cleviprex today. Consider transfer to S. today if Cleviprex could be discontinued. GI and DVT prophylaxis Patient to be placed on statins and dual antiplatelet therapy. Will continue to follow Time with Patient: Less than 30
--- NOTE | 2024-06-29 13:31 | P.PN ---
Subjective Progress Note Date: 06/29/24 48-year-old female presents to the emergency department with strokelike symptoms and altered mental status. Patient arrived in a wheelchair with deficits shown in speech, the right side of the face, dysarthria, both the left and the right arm as well as both the left and the right leg. It was reported that this was of sudden onset, the patient received tenecteplase in the emergency department. She has a past medical history that includes a seizure disorder, she had brain surgery for convulsions in 2012 and continually has "mini seizures" on a daily basis, headaches, vertigo, bilateral occipital neuritis. Additionally she has a history of recurrent kidney stones, pneumonia for which she was vented and 2012, sleep apnea, hypertension, hyperlipidemia, GERD/reflux and peptic ulcers and potential history of atrial fibrillation per previous documentation, although the patient herself is unsure. She just states that she had one point in time, a long time ago, was given Eliquis for 30 days. While in the emergency department patient underwent a brain CT, showing a new age intermediate lacunar infarct along the posterior limb of the internal capsule -possibly representing an acute infarct. Additionally she underwent a CT angiography of the head showing a large vessel occlusion or aneurysm, and a CT angiography of the neck which showed no acute findings in the arteries of the neck. Upon arrival to the emergency room patient's blood pressure was 203/121, with a pulse of 67 and she has been on nasal cannula 2 L maintaining oxygen saturation in the mid to upper 90s. Currently her blood pressure is 175/97 with a pulse rate of 55 with an oxygen saturation of 97%. Patient's home medication of Coreg 25 mg daily has been restarted. At bedside today patient states she is feeling better today than she was yesterday, her headache while still present has gotten better and her weakness is continue to improve. Patient was able to converse in full and respond appropriately without any difficulty today, she showed good strength all extremities. She has no acute complaints other than her headache. 06/29 - patient seen at bedside today. Echocardiogram completed on 06/28 showed ejection fraction 45-50% with a negative bubble study, per electrician supervisor substation report consider a transesophageal echo to definitively rule out cardiac source of thromboembolic CVA. Additionally, EEG was completed which showed a normal routine EEG, with no focal slowing, epileptiform discharge or seizure on the EE G. Diffuse, excessive beta activity could be due to medication (benzos). Brain CT was completed at 11:30 PM on 06/28, as of dictation it has not been interpreted as of yet - once it is read, if there is no evidence of a bleed patient is to be started on antiplatelet therapy, most likely with dual antiplatelet therapy.. Per cardiology's consultation, the neurology service would prefer to keep the patient's systolic blood pressure elevated while not exceeding 180 mmHg and for that reason she was placed on clevidipine as needed. Additionally patient doing carvedilol at home and that was reinitiated and continued. Per cardiology's recommendation patient was started on losartan 25 mg p.o. daily to add on top of the carvedilol and attempt to wean the patient from clevidipine. CBC and CMP completed today (06/29) were unremarkable, proBNP completed on 06/28 was 1220. Patient was seen today, stating she felt still fatigued however better than yesterday. 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 REVIEW OF SYSTEMS: CONSTITUTIONAL: No fever, no malaise. CARDIOVASCULAR: No chest pain, no palpitations, no syncope. PULMONARY: No shortness of breath, no cough. GASTROINTESTINAL: No diarrhea, no nausea, no vomiting, no abdominal pain. NEUROLOGICAL: No headaches, no weakness. PHYSICAL EXAMINATION: GENERAL: The patient is alert and oriented x3, not in any acute distress. Well developed, well nourished. HEENT: Pupils are round and equally reacting to light. EOMI. No scleral icterus. No conjunctival pallor. Normocephalic, atraumatic. No pharyngeal erythema. No thyromegaly. CARDIOVASCULAR: S1 and S2 present. No murmurs, rubs, or gallops. PULMONARY: Chest is clear to auscultation, no wheezing or crackles. ABDOMEN: Soft, nontender, nondistended, normoactive bowel sounds. No palpable organomegaly. MUSCULOSKELETAL: No joint swelling or deformity. EXTREMITIES: No cyanosis, clubbing, or pedal edema. NEUROLOGICAL: Gross neurological examination did not reveal any focal deficits. Awake, alert, oriented x3. SKIN: No rashes. 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 Per brain CT on 06/27 there is a new age intermediate lacunar infarct along the posterior limb of the internal capsule, possibly representing an acute infarct; side not specified Patient states she had weakness, all over, however she states it was more so on her right side last night (06/27) Patient given tenecteplase last night Repeat CT scheduled for tonight (06/28) at 11:[address] (no need to repeat CT if routine MRI ordered by neurology is completed today), if no bleeding is shown, then began on antiplatelet medication Neurology consulted, ordered MRI brain and routine EEG Routine EEG was considered to be normal EEG findings Repeat CT was completed at 11:30 PM on 06/28, as of dictation study has not been read yet If no bleed is evident on repeat CT, and begin antiplatelet therapy most likely with the dual antiplatelet therapy (aspirin and Plavix) # Altered mental state secondary to acute CVA - resolved Close reported that on presentation patient had altered mental status Seen the patient at bedside today she was able to interact and respond fully and appropriately without any deficiency or difficulty # Hypertensive emergency Presented with precipitously elevated blood pressure, continues to fluctuate however remains elevated Elevated blood pressures can be seen in patients suffered a CVA; appropriate to maintain relatively elevated blood pressure in patients with a CVA Patient's medication of Coreg 25 mg daily restarted Per cardiology's recommendation losartan 25 mg p.o. daily started in addition to the Coreg 25 mg daily and attempt to wean the patient from clevidipine # Potential history of atrial fibrillation based on prior documentation Documentation mentions patient has a history of atrial fibrillation; patient seemed unclear on the mention of it Patient states that that there was a previous time in which she was given Eliquis to take for 30 days however no longer, she was unclear/unsure on what this was for Cardiology has been consulted and will continue following their recommendations Echocardiogram completed on 06/28 indicated ejection fraction of 45-50% and a negative bubble study Consider anticoagulation if atrial fibrillation continues to be a concern # Potential history of heart failure based on prior documentation Documentations mentions a possible history of heart failure Patient does not state heart failure has been part of medical history Patient currently takes no medications related to heart failure, or history of it proBNP ordered to help rule out; proBNP was 1220 GI prophylaxis - Protonix 40 mg daily DVT prophylaxis - none currently following CVA and being given tenecteplase; consider starting Continue to monitor vital signs, monitor CBC, monitor CMP. Labs and medication were reviewed. Continue with symptomatic treatment. Dictation was produced using [employer] dictation software. please excuse any grammatical, word or spelling errors. Dr. Mohan MD I have performed a history and physical examination and medical decision making of this patient, discussed the same with the the resident, and agree with the assessment and plan as written. I performed brief physical exam. Objective - Vital Signs Vital signs: Vital Signs Temp 97.4 F L 06/29/24 04:00 Pulse 84 06/29/24 07:30 Resp 19 06/29/24 07:30 BP 154/101 06/29/24 07:30 Pulse Ox 98 06/29/24 07:30 FiO2 Intake & Output 06/28/24 06/29/24 06/29/24 18:59 06:59 18:59 Intake Total 700 70.134 Output Total 0 2950 Balance 700 -2879.866 Weight 93.44 kg 94 kg Intake: IV 700 Sodium Chloride 0.9% 1, 700 000 ml @ 100 mls/hr IV . Q10H [facility] Rx#:[id number] Intake, IV Titration 70.134 Amount Clevidipine Butyrate 25 30.134 mg In Empty Bag 1 bag @ 1 MG/HR 2 mls/hr IV .Q24H [facility] Rx#:[id number] Sodium Chloride 0.9% 1, 40 000 ml @ 100 mls/hr IV . Q10H ARLINE Rx#:[id number] Output: Urine 0 2950 Other: Voiding Method Toilet External Catheter # Voids 1 2 # Bowel Movements 1 - Labs CBC & Chem 7: 06/30/24 08:08 06/30/24 08:08 Labs: Abnormal Lab Results - Last 24 Hours (Table) 06/29/24 06/29/24 Range/Units 05:16 05:16 Hct 46.8 H (34.0-46.0) % Chloride 110 H (98-107) mmol/L
[2024-06-29 14:16] VITALS: RESP 16
[2024-06-29] MEDS: ASPIRIN 81 MG PO SCH (14:55)
[2024-06-29] MEDS: LORazepam 2 MG/ML INJ IV PRN (14:55)
[2024-06-29] MEDS: CLOPIDOGREL 75 MG TAB PO SCH (14:55)
[2024-06-29 15:15] LABS: Chol/HDL Ratio 3.69 Ratio; LDL Cholesterol,Calculated 105.3 mg/dL (0.0-131.0)
--- NOTE | 2024-06-29 15:53 | MR ---
EXAMINATION TYPE: MR brain wo con DATE OF EXAM: 06/29/2024 3:44 PM CLINICAL INDICATION: Female, 48 years old with history of stroke; PHH, AMS, CVA, stroke. COMPARISON: 12/30/2016 TECHNIQUE: Multi planar, multi sequence imaging was performed through the brain including: T1, T2, In version recovery, Diffusion weighted imaging, and gradient echo imaging. No gadolinium was given. FINDINGS: The shi-white junctions, ventricular system, basal cisterns appear unremarkable. Asymmetric white matter changes in the left boyd radiata are somewhat orthogonal to the lateral ventricle.. This is new from 2017. Midline structures show no abnormality. Diffusion-weighted imaging shows no evidence o f restricted diffusion. The susceptibility weighted images do not reveal any evidence for micro-hemor rhage. The bone marrow signal is within normal limits. Paranasal sinuses and mastoid air cells: No significant paranasal sinus disease. Visualized orbits: Orbital contents are intact. IMPRESSION: Left boyd radiata asymmetric white matter change which is orthogonal to lateral ventricle could be compatible with prior stroke. No evidence for acute/subacute CVA. Demyelination be felt less likely b ut not excluded. New from 2016.
[2024-06-29] MEDS: HEPARIN SODIUM,PORCINE 5,000 UNIT/ML 1 ML VIAL SQ SCH (19:53)
[2024-06-30 08:30] LABS: Basophils % (A) 1 %; Eosinophils # (A) 0.2 k/uL (0-0.7); Eosinophils % (A) 4 %; HCT 46.4 % (34.0-46.0); Lymphocytes # (A) 2.5 k/uL (1.0-4.8); Lymphocytes % (A) 41 %; MCH 29.9 pg (25.0-35.0); MCHC 32.3 g/dL (31.0-37.0); MCV 92.4 fL (80.0-100.0); Monocytes # (A) 0.3 k/uL (0-1.0); Monocytes % (A) 4 %; Neutrophils # (A) 2.9 k/uL (1.3-7.7); Neutrophils % (A) 49 %; Platelet Count 206 k/uL (150-450); RBC 5.02 m/uL (3.80-5.40); RDW 13.5 % (11.5-15.5)
[2024-06-30 08:43] LABS: ALT 11 U/L (4-34); AST 18 U/L (14-36); African American GFR (CKD) >90 (>60 ml/min/1.73 sqM); Albumin 4.1 g/dL (3.5-5.0); Alkaline Phosphatase 68 U/L (38-126); Anion Gap 8 mmol/L; Blood Urea Nitrogen 17 mg/dL (7-17); Calcium 9.6 mg/dL (8.4-10.2); Carbon Dioxide 25 mmol/L (22-30); Chloride 108 mmol/L (98-107); Glucose 101 mg/dL (74-99); Non-African American GFR(CKD) >90 (>60 ml/min/1.73 sqM); Potassium 4.2 mmol/L (3.5-5.1); Sodium 141 mmol/L (137-145); Total Bilirubin 0.7 mg/dL (0.2-1.3); Total Protein 6.8 g/dL (6.3-8.2)
[2024-06-30 11:40] VITALS: BP 171/96; PULSE 62; TEMP 97.8
--- NOTE | 2024-06-30 14:06 | P.PN ---
Subjective Progress Note Date: 06/30/24 I am following up with the patient and doing better. She continues to have elevated blood pressure issue. Objective - Vital Signs Vital signs: Vital Signs Temp 97.8 F 06/30/24 11:38 Pulse 62 06/30/24 11:38 Resp 16 06/30/24 11:38 BP 171/96 06/30/24 11:38 Pulse Ox 96 06/30/24 11:38 FiO2 Intake & Output 06/29/24 06/30/24 06/30/24 18:59 06:59 18:59 Intake Total 1431.233 140 Output Total 800 Balance 631.233 140 Weight 90.6 kg Intake: IV 20 Invasive Line 1 10 Invasive Line 2 10 Intake, IV Titration 53.233 Amount Clevidipine Butyrate 25 33.233 mg In Empty Bag 1 bag @ 1 MG/HR 2 mls/hr IV .Q24H A[facility] Rx#:[id number] Sodium Chloride 0.9% 1, 20 000 ml @ 100 mls/hr IV . Q10H ARLINE Rx#:[id number] Oral 1378 120 Output: Urine 800 Other: Voiding Method Bedside Commode Toilet # Voids 1 2 # Bowel Movements 1 - Exam GENERAL: The patient is lying in bed and is not in acute distress. HENT: Supple neck. NEUROLOGICAL: Higher mental function: The patient is awake, alert oriented to self, place and time. Patient is following commands. No aphasia and no neglect. Cranial nerves: The pupils are round, equal and reactive to light and accommodation. Visual pulliam are full to confrontation throughout. Extraocular movement is intact no nystagmus is noted. Facial sensation is normal to touch throughout. The facial strength is normal throughout. Hearing is normal bilaterally to hand rub. Tongue is midline and moved [id number] without any difficulty. No dysarthria is noted. Shoulder shrug is normal bilaterally. Motor: The strength is 5 over 5 throughout. Normal tone and bulk. Cerebellum: Normal finger to nose bilaterally. Sensation: Sensation is normal to touch throughout. Reflexes (right/left): 2+ throughout. Plantars are deferred since patient compliance performing exam. Some other workup during this hospital visit consisted of: On presentation her blood pressure was 203/121 CBC with differential is unremarkable No triglyceride 137, cholesterol is 182, LDL is 105 and HDL is 49. CT of the head is reported as new age-indeterminate lacunar infarct along the posterior limb of internal capsule. This may represent an acute infarct. I reviewed the CT and I felt over the left side and this could be subacute not acute in nature possibly CT angiography of the head and neck is reported as no large vessel occlusion or aneurysm. No acute finding in the arteries of the neck. 2D Echo was reported as ejection fraction 45 to 50%. Negative bubble study. Serum alcohol is less than [address] head completed and pending official report. I felt there is no acute or subacute stroke or any bleed Routine EEG: Normal. MRI of the brain is reported as left boyd radiata asymmetric white matter changes which is Ortho abdominal to the lateral ventricle could be compatible with prior stroke. No evidence of acute/subacute CVA. Demyelinating felt less likely but not excluded. New from 2017. - Labs CBC & Chem 7: 06/30/24 08:08 06/30/24 08:08 Labs: Abnormal Lab Results - Last 24 Hours (Table) 06/30/24 06/30/24 Range/Units 08:08 08:08 Hct 46.4 H (34.0-46.0) % Chloride 108 H (98-107) mmol/L Glucose 101 H (74-99) mg/dL Assessment and Plan Assessment: This is a 48-year-old woman with history of seizure, hypertension that is uncontrolled at home, migraine, questionable proximal atrial fibrillation that was briefly on Eliquis for 1 month according to the patient and that was discontinued since the A-fib was questionable, type 2 diabetes, diabetic neuropathy presented emergency department because of weakness of the upper lower extremities mostly the right more than left that the patient felt with slurring the speech, facial weakness confusion and her blood pressure was uncontrolled in the 220s over 119 when she checked at home and had a headache with visual d isturbance over the right eye. Her blood pressure has been uncontrolled on presentation. NIH stroke score in the ED was [address] of the head which showed questionable left acute lacunar stroke. CT angiography of the head and neck was unremarkable for large vessel occlusion. Patient received IV thrombolytic Acute ischemic stroke post IV thrombolytic. Patient had NIH stroke scale by the ED team of 12 and had weakness over the right and left extremities with facial weakness, dysarthria and confusion---resolved. Cannot rule out hypertensive encephalopathy Hypertensive emergency History of seizure and last seizure was in 2011 and patient stated that she had a resection in the right occipital region at [facility] Underlying history of migraine Diabetes mellitus Diabetic neuropathy Questionable A-fib and she was on Eliquis for 1 month History of hypertension History of cognitive heart failure Tobacco use and she smokes 2 packs a day for years Plan: She is resumed on home dose of aspirin 81 mg daily. In addition patient was started on Plavix 75 mg daily. Recommend dual antiplatelets and after 21 days stop Plavix but continue aspirin indefinitely. Patient is on Lipitor 80 mg nightly. From neurology perspective that can be decreased down to 40 mg nightly. LDL and strokes goal is less than 70. Continue neurochecks Cardiac monitoring PT OT and GEOMETRY TEACHER are consulted Cardiology team consulted because of her history of questionable A-fib in the past that she reports new strokelike symptoms. If still questionable A-fib in the past recommend a loop recorder or event monitor for 30 days. Cardiology stated rule out A-fib but recommended starting antiplatelets. Recommend normotensive blood pressure Will defer the rest of the medical management to primary and other specialist DVT prophylaxis: On subq heparin 5000U every 12 hours. Outpatient recommend the patient to follow-up with a neurologist within 2 weeks. The plan discussed with the patient and her nurse. There is no further neurological workup. Will sign off. Please reconsult if needed Time with Patient: Less than 30
--- NOTE | 2024-06-30 14:27 | P.PN ---
Subjective Progress Note Date: 06/30/24 Principal diagnosis: Hypertension emergency The patient is a pleasant 48-year-old female patient with a past medical history significant for coronary artery disease CAD and hypertension and hypertensive heart disease as well as nonischemic cardiomyopathy was EF between 40 to 45% as well as history of LBBB and also overweight and diabetes and diabetic neuropathy as well as a history of "paroxysmal atrial fibrillation" was admitted to the intensive care unit after she presented to the hospital with a stroke and that she received thrombolytics. The patient somewhat is a poor historian. She presented to the emergency department earlier today with dislodged speech and upper and lower extremities weakness and facial throbbing. The CT scan showed possible new infarct and she received thrombolytics with improvement in her symptoms. When she presented to the emergency department she was hypertensive with a systolic pressure exceeding 200 mmHg. Subsequently the patient was admitted to the intensive care unit. We consulted to see the patient for further evaluation and treatment of hypertension. The neurology service would like to keep the systolic blood pressure elevated and not exceeding 180 mmHg and for that reason she was placed on clevidipine as needed. She was on carvedilol at home and that was reinitiated and continued. She is bradycardic with heart rate in the 50s. The EKG showed LBBB which is not new to the patient. She underwent a CT scan of the chest which did not show any evidence of dissection. Also she underwent a CT scan of the head and neck which showed no significant abnormalities. Beside that the patient remains asymptomatic in terms of chest pain or chest discomfort or shortness of antonette. The physical examination is remarkable for elevated blood pressure and marginally low heart rate with regular rate and rhythm and soft systolic murmur at the right upper sternal border with clear breathing sounds bilaterally and no carotid bruit but she has bilateral lower extremities edema noted June 29, 2024 The patient was seen and evaluated this morning. Overall she seems to be stable in terms of chest pain or chest discomfort and no neurological symptoms but the pressure remains elevated and consistent with stage II hypertension. She is on Cleviprex IV. I am going to start the patient on losartan at 25 mg p.o. daily in addition to carvedilol and try to wean the patient from a Cleviprex. She need to be started on antiplatelet and that to be addressed by the neurology team later on today. The echo showed mildly impaired LV function with EF between 45 to 50%. Down the line she need to be ruled out for PFO and also rule out atrial fibrillation and assess the possible benefits of anticoagulation. 06/30 Patient has been transferred out of the intensive care unit and seen today on the cardiac stepdown unit. Patient is hoping to go home today. She states she is feeling very tired because she has not been sleeping here. She is currently on aspirin and Plavix. Regarding atrial fibrillation, patient denies ever being told that she had atrial fibrillation. No idea where this came from in her chart. Blood pressure 171/96, heart rate 62, pulse ox 96% on room air. Examination is remarkable for regular rhythm with a soft systolic murmur and clear breathing sounds bilaterally and bilateral lower extremities edema Assessment Acute stroke treated with thrombolytics Hypertension emergency Coronary artery disease Nonischemic cardiomyopathy LBBB Atrial fibrillation by history Multiple comorbid conditions Plan Continue blood pressure management and consider adjusting the oral blood pressure medications if the systolic pressure exceeding 180 mmHg, further adjustment can be done as an outpatient Continue aspirin and Plavix Plan follow-up in the office to rule out atrial fibrillation. It does not appear the patient has any history of atrial fibrillation. Consider ruling out cardiac source of embolization including PFO Continue current cardiac medications Patient is cleared for discharge from cardiology and may follow-up in the office in 1 to 2 weeks. Nurse practitioner note has been reviewed, I agree with documented findings and plan of care. Patient was seen and examined. Objective - Vital Signs Vital signs: Vital Signs Temp 97.8 F 06/30/24 11:38 Pulse 62 06/30/24 11:38 Resp 16 06/30/24 11:38 BP 171/96 06/30/24 11:38 Pulse Ox 96 06/30/24 11:38 FiO2 Intake & Output 06/29/24 06/30/24 06/30/24 18:59 06:59 18:59 Intake Total 1431.233 140 Output Total 800 Balance 631.233 140 Weight 90.6 kg Intake: IV 20 Invasive Line 1 10 Invasive Line 2 10 Intake, IV Titration 53.233 Amount Clevidipine Butyrate 25 33.233 mg In Empty Bag 1 bag @ 1 MG/HR 2 mls/hr IV .Q24H ARLINE Rx#:[id number] Sodium Chloride 0.9% 1, 20 000 ml @ 100 mls/hr IV . Q10H ARLINE Rx#:[id number] Oral 1378 120 Output: Urine 800 Other: Voiding Method Bedside Commode Toilet # Voids 1 2 # Bowel Movements 1 - Labs CBC & Chem 7: 06/30/24 08:08 06/30/24 08:08 Labs: Abnormal Lab Results - Last 24 Hours (Table) 06/30/24 06/30/24 Range/Units 08:08 08:08 Hct 46.4 H (34.0-46.0) % Chloride 108 H (98-107) mmol/L Glucose 101 H (74-99) mg/dL
--- NOTE | 2024-06-30 14:38 | P.PN ---
Subjective Progress Note Date: 06/30/24 This is a 48-year-old female with history of multiple medical problems including hypertension, history of diastolic congestive heart failure, paroxysmal atrial fibrillation, COPD, obstructive sleep apnea syndrome, benign essential hypertension, type 2 diabetes with diabetic neuropathy, history of seizure disorder, chronic headaches, presented to the ER with multiple neurological symptoms including headache, slurred speech, upper and lower extremities weakness, facial drooping, and she had a CT of the brain suggestive of the new age indeterminate lacunar infarct along the posterior limb of the internal capsule. May have represented an acute infarct, and the patient received thrombolytic therapy in the ER, and based on the protocol, she had to be placed in the ICU overnight for 24 hours. NIH stroke scale on admission was 11. Onset of her symptoms were within less than 4.5 hours, hence tPA was given. According to nurses taking care of the patient, patient felt better overnight, however she continues to have profound significant bilateral weakness in her upper and lower extremities. Patient denies any specific symptoms except for some headache earlier this morning, no slurred speech, no mental status change, and she definitely does not have any facial asymmetry. Patient seems to be generally weak mostly. WBC count is 9.4 hemoglobin 15.3 basic metabolic profile is normal and renal profile is normal. CT angiogram of the chest showed mostly cardiomegaly and mild pulmonary vascular congestion. No evidence of thoracic aortic aneurysm or dissection. No evidence of pulmonary embolism CT angiogram of the neck and head showed no significant abnormality Patient was evaluated today on 06/29/2024, patient remains in the ICU, blood pressure remains poorly controlled, she is on Cleviprex at 3 mg/h. She is also on Coreg, and on Cozaar. Blood pressure remains in the 170 range over 110, hence I added hydralazine 25 mg p.o. twice daily and amlodipine 5 mg daily. Tina to discontinue Cleviprex. Neurologically the patient is significantly better today, denies any specific neurological complaints, and her weakness has completely resolved. Patient is supposed to have repeat CT of the brain today, and if negative for bleed, the patient could be transferred out of the ICU and placed on mostly dual platelet therapy as recommended by neurology. CBC is rather normal WBC count is 6.5 hemoglobin 15.7 electrolytes are normal renal profile is normal The patient is seen today June 30, 2024 in follow-up on the selective care unit. She was transferred out of the intensive care unit yesterday. She is sitting up in bed. Awake and alert in no acute distress. He is maintaining good O2 saturations in the 90s on room air. She has been afebrile. Somewhat hypertensive. Denies any worsening neurologic effects. White count 6.0. Hemoglobin 15.0. Platelets 206. Sodium 141. Potassium 4.2. Bicarb 25. BUN 17. Creatinine 0.75. Glucose 101. She remains on aspirin and Plavix. Heparin for DVT prophylaxis. MRI of the brain revealed left boyd radiata asymmetric white matter change which is orthogonal to the lateral ventricle could be compatible with prior stroke. No evidence for acute/subacute CVA. Demyelination felt less likely but not excluded. New from 2016 Objective - Vital Signs Vital signs: Vital Signs Temp 97.8 F 06/30/24 11:38 Pulse 62 06/30/24 11:38 Resp 16 06/30/24 11:38 BP 171/96 06/30/24 11:38 Pulse Ox 96 06/30/24 11:38 FiO2 Intake & Output 06/29/24 06/30/24 06/30/24 18:59 06:59 18:59 Intake Total 1431.233 140 Output Total 800 Balance 631.233 140 Weight 90.6 kg Intake: IV 20 Invasive Line 1 10 Invasive Line 2 10 Intake, IV Titration 53.233 Amount Clevidipine Butyrate 25 33.233 mg In Empty Bag 1 bag @ 1 MG/HR 2 mls/hr IV .Q24H ARLINE Rx#:[id number] Sodium Chloride 0.9% 1, 20 000 ml @ 100 mls/hr IV . Q10H ARLINE Rx#:[id number] Oral 1378 120 Output: Urine 800 Other: Voiding Method Bedside Commode Toilet # Voids 1 2 # Bowel Movements 1 - Exam GENERAL EXAM: Alert, active, 48-year-old female, on room air, comfortable in no apparent distress. HEAD: Normocephalic. EYES: Normal reaction of pupils, equal size. NOSE: Clear with pink turbinates. THROAT: No erythema or exudates. NECK: No masses, no JVD. CHEST: No chest wall deformity. LUNGS: Equal air entry with no crackles, wheeze, rhonchi or dullness. CVS: S1 and S2 normal with no audible murmur, regular rhythm. ABDOMEN: No hepatosplenomegaly, normal bowel sounds, no guarding or rigidity. SPINE: No scoliosis or deformity SKIN: No rashes CENTRAL NERVOUS SYSTEM: No focal deficits, tone is normal in all 4 extremities. EXTREMITIES: There is no peripheral edema. No clubbing, no cyanosis. Peripheral pulses are intact. - Labs CBC & Chem 7: 06/30/24 08:08 06/30/24 08:08 Labs: Abnormal Lab Results - Last 24 Hours (Table) 06/30/24 06/30/24 Range/Units 08:08 08:08 Hct 46.4 H (34.0-46.0) % Chloride 108 H (98-107) mmol/L Glucose 101 H (74-99) mg/dL Assessment and Plan Assessment: Ischemic CVA, status post thrombolytic therapy, with complete resolution of her neurological symptoms in the last 24 hours. MRI of the brain revealed a left coronal radiata asymmetric white matter change which is orthogonal to lateral ventricle could be compatible with prior stroke. No evidence for acute/subacute CVA. Demyelination felt less likely but not excluded. New from 2017 Mild LV dysfunction with mild congestive heart failure as noted on CT angiogram of the chest ejection fraction 45%. Paroxysmal atrial fibrillation History of underlying COPD, inactive History of obstructive sleep apnea syndrome History of GERD requiring Cristy's fundoplication Benign essential hypertension Type 2 diabetes Diabetic neuropathy Dyslipidemia Plan: The patient was seen and evaluated MRI of the brain, labs and medications reviewed Adjusted blood pressure medications Neurology and cardiology have signed off Patient is cleared for discharge from the pulmonary standpoint I have personally seen and examined the patient, performed the documentation and the assessment and plan as written. Number of minutes spent on the visit: 10.
[2024-06-30] MEDS: hydrALAZINE HCL 25 MG TAB PO SCH (17:10)
[2024-06-30] MEDS ORDERED: carvediloL 12.5 MG TAB PO SCH (17:30)
--- NOTE | 2024-06-30 17:37 | P.DS ---
Providers Date of admission: 06/28/24 01:01 Attending physician: Sydney Calles Consults: 06/28/24 01:01 Consult Physician Routine Consulting Provider: Kwame Alcocer Consult Reason/Comments: icu Do you want consulting provider notified?: Yes Consult Physician Routine Consulting Provider: Eduard Lozada Consult Reason/Comments: cva Do you want consulting provider notified?: Yes 06/28/24 11:13 Consult Physician Routine Consulting Provider: [facility] Consult Reason/Comments: hx. of afib, current severe HTN & CODE STROKE Do you want consulting provider notified?: Yes Primary care physician: [facility] Course: Discharge diagnoses; # CVA secondary to acute lacunar infarct Per brain CT on 06/27 there is a new age intermediate lacunar infarct along the posterior limb of the internal capsule, possibly representing an acute infarct; side not specified Patient states she had weakness, all over, however she states it was more so on her right side last night (06/27) Patient given tenecteplase last night Repeat CT scheduled for tonight (06/28) at 11:[address] (no need to repeat CT if routine MRI ordered by neurology is completed today), if no bleeding is shown, then began on antiplatelet medication Neurology consulted, ordered MRI brain and routine EEG Routine EEG was considered to be normal EEG findings Repeat CT was completed at 11:30 PM on 06/28, as of dictation study has not been read yet If no bleed is evident on repeat CT, and begin antiplatelet therapy most likely with the dual antiplatelet therapy (aspirin and Plavix) Patient started on aspirin 81 mg and Plavix 75 mg daily # Altered mental state secondary to acute CVA - resolved Close reported that on presentation patient had altered mental status Seen the patient at bedside today she was able to interact and respond fully and appropriately without any deficiency or difficulty # Hypertensive emergency Presented with precipitously elevated blood pressure, continues to fluctuate however remains elevated Elevated blood pressures can be seen in patients suffered a CVA; appropriate to maintain relatively elevated blood pressure in patients with a CVA Patient's medication of Coreg 25 mg daily restarted Per cardiology's recommendation losartan 25 mg p.o. daily started in addition to the Coreg 25 mg daily and attempt to wean the patient from clevidipine # Potential history of atrial fibrillation based on prior documentation Documentation mentions patient has a history of atrial fibrillation; patient seemed unclear on the mention of it Patient states that that there was a previous time in which she was given Eliquis to take for 30 days however no longer, she was unclear/unsure on what this was for Cardiology has been consulted and will continue following their recommendations Echocardiogram completed on 06/28 indicated ejection fraction of 45-50% and a negative bubble study Consider anticoagulation if atrial fibrillation continues to be a concern # Potential history of heart failure based on prior documentation Documentations mentions a possible history of heart failure Patient does not state heart failure has been part of medical history Patient currently takes no medications related to heart failure, or history of it proBNP ordered to help rule out; proBNP was 1220 GI prophylaxis - was Protonix 40 mg daily Hospital course; 48-year-old female presents to the emergency department with strokelike symptoms and altered mental status. Patient arrived in a wheelchair with deficits shown in speech, the right side of the face, dysarthria, both the left and the right arm as well as both the left and the right leg. It was reported that this was of sudden onset, the patient received tenecteplase in the emergency department. She has a past medical history that includes a seizure disorder, she had brain surgery for convulsions in 2012 and continually has "mini seizures" on a daily basis, headaches, vertigo, bilateral occipital neuritis. Additionally she has a history of recurrent kidney stones, pneumonia for which she was vented and 2012, sleep apnea, hypertension, hyperlipidemia, GERD/reflux and peptic ulcers and potential history of atrial fibrillation per previous documentation, although the patient herself is unsure. She just states that she had one point in time, a long time ago, was given Eliquis for 30 days. While in the emergency department patient underwent a brain CT, showing a new age intermediate lacunar infarct along the posterior limb of the internal capsule -possibly representing an acute infarct. Additionally she underwent a CT angiography of the head s howing a large vessel occlusion or aneurysm, and a CT angiography of the neck which showed no acute findings in the arteries of the neck. Upon arrival to the emergency room patient's blood pressure was 203/121, with a pulse of 67 and she has been on nasal cannula 2 L maintaining oxygen saturation in the mid to upper 90s. Currently her blood pressure is 175/97 with a pulse rate of 55 with an oxygen saturation of 97%. Patient's home medication of Coreg 25 mg daily has been restarted. At bedside today patient states she is feeling better today than she was yesterday, her headache while still present has gotten better and her weakness is continue to improve. Patient was able to converse in full and respond appropriately without any difficulty today, she showed good strength all extremities. She has no acute complaints other than her headache. 06/29 - patient seen at bedside today. Echocardiogram completed on 06/28 showed ejection fraction 45-50% with a negative bubble study, per communication equipment repairer report consider a transesophageal echo to definitively rule out cardiac source of thromboembolic CVA. Additionally, EEG was completed which showed a normal routine EEG, with no focal slowing, epileptiform discharge or seizure on the EEG. Diffuse, excessive beta activity could be due to medication (benzos). Brain CT was completed at 11:30 PM on 06/28, as of dictation it has not been interpreted as of yet - once it is read, if there is no evidence of a bleed patient is to be started on antiplatelet therapy, most likely with dual antiplatelet therapy.. Per cardiology's consultation, the neurology service would prefer to keep the patient's systolic blood pressure elevated while not exceeding 180 mmHg and for that reason she was placed on clevidipine as needed. Additionally patient doing carvedilol at home and that was reinitiated and continued. Per cardiology's recommendation patient was started on losartan 25 mg p.o. daily to add on top of the carvedilol and attempt to wean the patient from clevidipine. CBC and CMP completed today (06/29) were unremarkable, proBNP completed on 06/28 was 1220. Patient was seen today, stating she felt still fatigued however better than yesterday. 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 06/30 - Patient seen at bedside today. Patient moved onto the cardiac stepdown unit, the third floor from the ICU. Patient started on aspirin 81 mg and Plavix 75 mg as well as subcutaneous heparin for DVT prophylaxis. Her repeat brain CT from 06/28 showed suggestion of sulcal effacement involving the bilateral frontal lobes which could be technical in nature however bifrontal CVA difficult to exclude, radiologist wanted to be clinically correlated and with an MRI. She had a brain MRI completed on 06/29 which showed left boyd radiata asymmetric white matter change which she is orthogonal to the lateral ventricle could be compatible with prior stroke. No evidence for acute/subacute CVA. Demyelination felt is less likely however not excluded. New as compared to brain MRI from 2017. Patient's blood pressure overnight was 161/88 with a heart rate of 59, respiratory rate of 16 with an oxygen saturation of 96% on room air. Patient to be discharged on all medications per cardiology's recommendation, she has been instructed to follow-up with cardiology, pulmonology and neurology. Patient to be discharged on a prednisone taper, along with Protonix for GI protection. Imaging done - Repeat CT completed on 06/28 showed suggestion of sulcal effacement involving the bilateral frontal lobes which could be technical in nature however bifrontal CV difficulty excluded. Requested to correlate clinically and with a brain MRI Brain MRI completed on 06/29 showed left boyd radiata asymmetric white matter change which is orthogonal to the lateral ventricle could be compatible with prior stroke. No evidence of acute/subacute CVA. Demyelination felt to be less likely however not excluded. New from a previous brain MRI in 2017. PHYSICAL EXAMINATION: GENERAL: The patient is alert and oriented x3, not in any acute distress. Well developed, well nourished. HEENT: Pupils are round and equally reacting to light. EOMI. No scleral icterus. No conjunctival pallor. Normocephalic, atraumatic. No pharyngeal erythema. No thyromegaly. CARDIOVASCULAR: S1 and S2 present. No murmurs, rubs, or gallops. PULMONARY: Wheezing present. ABDOMEN: Soft, nontender, nondistended, normoactive bowel sounds. No palpable organomegaly. MUSCULOSKELETAL: No joint swelling or deformity. EXTREMITIES: No cyanosis, clubbing, or pedal edema. NEUROLOGICAL: Gross neurological examination did not reveal any focal deficits. SKIN: No rashes. Dictation was produced using [employer] dictation software. please excuse any grammatical, word or spelling errors. Dr. Mohan MD I have performed a history and physical examination and medical decision making of this patient, discussed the same with the the resident, and agree with the assessment and plan as written. I performed brief physical exam. Patient Condition at Discharge: Serious Plan - Discharge Summary Discharge Rx Participant: Yes New Discharge Prescriptions: New hydrALAZINE HCL [Apresoline] 25 mg PO TID 30 Days #90 tab Aspirin 81 mg PO DAILY 30 Days #30 tab Atorvastatin [Lipitor] 80 mg PO HS 30 Days #30 tab Clopidogrel [Plavix] 75 mg PO DAILY 30 Days #30 tab predniSONE See Taper PO DAILY 12 Days #30 tab Losartan [Cozaar] 50 mg PO DAILY 30 Days #60 tab Pantoprazole [Protonix] 40 mg PO AC-BRKFST 30 Days #30 tab Continue Acetaminophen Tab [Tylenol] 650 mg PO Q6H #30 tab Changed carvediloL [Coreg] 25 mg PO BID-W/MEALS 30 Days #60 tab Discharge Medication List Acetaminophen Tab [Tylenol] 650 mg PO Q6H #30 tab 10/10/22 [Rx] Aspirin 81 mg PO DAILY 30 Days #30 tab 06/30/24 [Rx] Atorvastatin [Lipitor] 80 mg PO HS 30 Days #30 tab 06/30/24 [Rx] Clopidogrel [Plavix] 75 mg PO DAILY 30 Days #30 tab 06/30/24 [Rx] Losartan [Cozaar] 50 mg PO DAILY 30 Days #60 tab 06/30/24 [Rx] Pantoprazole [Protonix] 40 mg PO AC-BRKFST 30 Days #30 tab 06/30/24 [Rx] carvediloL [Coreg] 25 mg PO BID-W/MEALS 30 Days #60 tab 06/30/24 [Rx] hydrALAZINE HCL [Apresoline] 25 mg PO TID 30 Days #90 tab 06/30/24 [Rx] predniSONE See Taper PO DAILY 12 Days #30 tab 06/30/24 [Rx] Follow up Appointment(s)/Referral(s): James Harvey DO [Primary Care Provider] - 1-2 days [facility] Nurse, [NON-STAFF] - Scar Mendoza MD [STAFF PHYSICIAN] - 1 Week Presley De La Garza MD [STAFF PHYSICIAN] - 1 Week Eduard Lozada MD [STAFF PHYSICIAN] - 1 Week Discharge Disposition: HOME SELF-CARE
[2024-06-30] MEDS ORDERED: amLODIPine 5 MG TAB PO SCH (21:00)
== END 2024-06-30 18:03 | disposition home or self-care (01) | DRG 45 ==
LOC: EC 22:59 → 2SICU 06-28 01:01 → 3SCARD 06-29 15:37
PROVIDERS: ADMIT Hospitalist; ATTEND Hospitalist
DX: I63.81 Other cerebral infarction due to occlusion or stenosis of small artery (principal); I50.32 Chronic diastolic (congestive) heart failure; J44.9 Chronic obstructive pulmonary disease, unspecified; I48.0 Paroxysmal atrial fibrillation; I44.7 Left bundle-branch block, unspecified; I42.8 Other cardiomyopathies; R29.810 Facial weakness; R47.81 Slurred speech; E11.40 Type 2 diabetes mellitus with diabetic neuropathy, unspecified; E78.5 Hyperlipidemia, unspecified; F17.210 Nicotine dependence, cigarettes, uncomplicated; F41.9 Anxiety disorder, unspecified; G40.909 Epilepsy, unspecified, not intractable, without status epilepticus; I11.0 Hypertensive heart disease with heart failure; I16.1 Hypertensive emergency; I25.10 Atherosclerotic heart disease of native coronary artery without angina pectoris; E66.3 Overweight; R29.712 NIHSS score 12; G47.33 Obstructive sleep apnea (adult) (pediatric); G43.909 Migraine, unspecified, not intractable, without status migrainosus; Z87.01 Personal history of pneumonia (recurrent); K21.9 Gastro-esophageal reflux disease without esophagitis; Z68.37 Body mass index [BMI] 37.0-37.9, adult; Z87.442 Personal history of urinary calculi; Z86.010 Personal history of colon polyps; Z79.82 Long term (current) use of aspirin; Z79.02 Long term (current) use of antithrombotics/antiplatelets; Z79.899 Other long term (current) drug therapy; Z86.16 Personal history of COVID-19; Z86.73 Personal history of transient ischemic attack (TIA), and cerebral infarction without residual deficits; Z87.11 Personal history of peptic ulcer disease
CPT/HCPCS: 36415; 70450; 70496; 70498; 70551; 71045; 71275; 80053; 80061; 80320; 81001; 82550; 83735; 83880; 84100; 84484; 85025; 85610; 85730; 93005; 93306; 95816; 96374; 96375; 99291

== ENCOUNTER 2025-02-17 00:44 | Emergency (ER) | payer OTHER ==
[2025-02-17 02:24] LABS: Basophils # (A) 0.03 10*3/uL (0.00-0.10); Basophils % (A) 0.3 %; Eosinophils # (A) 0.24 10*3/uL (0.04-0.35); Eosinophils % (A) 2.3 %; HCT 43.8 % (37.2-46.3); HGB 15.1 g/dL (12.0-15.0); Lymphocytes % (A) 31.5 %; MCH 30.7 pg (27.0-32.0); MCHC 34.5 g/dL (32.0-37.0); Monocytes # (A) 0.59 10*3/uL (0.20-1.00); Monocytes % (A) 5.6 %; Neutrophils # (A) 6.29 10*3/uL (1.80-7.70); Platelet Count 224 10*3/uL (140-440); RBC 4.92 10*6/uL (4.10-5.20); RDW 13.2 % (11.5-14.5); WBC 10.48 10*3/uL (4.50-10.00)
[2025-02-17 02:33] LABS: ALT 14 U/L (4-34); AST 28 U/L (14-36); African American GFR (CKD) >90 (>60 ml/min/1.73 sqM); Albumin 4.5 g/dL (3.5-5.0); Alkaline Phosphatase 89 U/L (38-126); Amylase 58 U/L (30-110); Anion Gap 11 mmol/L; Blood Urea Nitrogen 19 mg/dL (7-17); Calcium 9.6 mg/dL (8.4-10.2); Carbon Dioxide 22 mmol/L (22-30); Chloride 107 mmol/L (98-107); Glucose 114 mg/dL (74-99); Lipase 66 U/L (23-300); Magnesium 1.8 mg/dL (1.6-2.3); Non-African American GFR(CKD) >90 (>60 ml/min/1.73 sqM); Potassium 5.1 mmol/L (3.5-5.1); Sodium 140 mmol/L (137-145); Total Bilirubin 0.9 mg/dL (0.2-1.3); Total Protein 7.6 g/dL (6.3-8.2)
[2025-02-17] MEDS: MAG HYDROX/AL HYDROX/SIMETH 30 ML CUP PO STA (02:33)
[2025-02-17 02:40] LABS: Partial Thromboplastin Time 23.3 sec (22.0-30.0); Prothrombin Time 10.6 sec (10.0-12.5)
[2025-02-17] MEDS: PHENOBARB/HYOSCY/ATROPINE/SCOP 16.2 MG TAB PO STA (02:54)
--- NOTE | 2025-02-17 03:35 | ED ---
Chest Pain HPI - General Chief Complaint: Chest Pain Stated Complaint: chest pain Time Seen by Provider: 02/17/25 00:56 Source: patient Mode of arrival: wheelchair Limitations: no limitations - History of Present Illness Initial Comments: This patient is a 49-year-old woman who presents to have evaluation for pain at the left costal margin and left chest that she states started a couple of days ago and became worse tonight less than an hour before coming in. She states that it reminds her of previous pain she had been told was related to hiatal her rebekah. She states the pain has been made worse when she eats. She has not noted other modifying factors. Denies associated symptoms, no dyspnea, diaphoresis, lightheadedness, palpitations, syncope she does have associated nausea. MD Complaint: chest pain -: days(s) Onset: during rest Pain Location: left chest Pain Radiation: none Severity: severe Quality: aching Consistency: constant Improves With: nothing Worsens With: eating Anginal Symptoms: nausea Treatments Prior to Arrival: none - Related Data Previous Rx's Medication Instructions Recorded Acetaminophen Tab [Tylenol] 650 mg PO Q6H #30 tab 10/10/22 Aspirin 81 mg PO DAILY 30 Days #30 tab 06/30/24 Atorvastatin [Lipitor] 80 mg PO HS 30 Days #30 tab 06/30/24 Clopidogrel [Plavix] 75 mg PO DAILY 30 Days #30 tab 06/30/24 Losartan [Cozaar] 50 mg PO DAILY 30 Days #60 tab 06/30/24 Pantoprazole [Protonix] 40 mg PO AC-BRKFST 30 Days #30 tab 06/30/24 carvediloL [Coreg] 25 mg PO BID-W/MEALS 30 Days #60 06/30/24 tab hydrALAZINE HCL [Apresoline] 25 mg PO TID 30 Days #90 tab 06/30/24 predniSONE See Taper PO DAILY 12 Days #30 tab 06/30/24 Phenobarb/Hyoscy/Atropine/Scop 16.2 mg PO Q6H PRN #16 tablet 02/17/25 [] Allergies Allergy/AdvReac Type Severity Reaction Status Date / Time pregabalin [From Lyrica] Allergy Unknown Rash/Hives Verified 11/19/24 16:28 acetylcysteine Allergy Swelling Verified 11/19/24 16:28 hydromorphone HCl AdvReac headache Verified 11/19/24 16:28 [From Dilaudid] BERRIES Allergy Anaphylaxis Uncoded 11/19/24 16:28 Review of Systems ROS Statement: Those systems with pertinent positive or pertinent negative responses have been documented in the HPI. ROS Other: All systems not noted in ROS Statement are negative. Constitutional: Denies: fever, chills Respiratory: Denies: cough, dyspnea Cardiovascular: Reports: chest pain. Denies: palpitations, orthopnea, edema, syncope Gastrointestinal: Reports: abdominal pain, nausea. Denies: vomiting, diarrhea, constipation, melena, hematochezia Genitourinary: Denies: dysuria, hematuria Musculoskeletal: Denies: back pain Skin: Denies: rash Neurological: Denies: headache, weakness EKG Findings - EKG Results: EKG: interpreted by LEOPOLDO, sinus rhythm (Rate 76 bpm) - Blocks, [place], Hypertrophy, ST Abn: AV and intraventricular conduction: left bundle branch block (fixed/intermittent, complete/incomplete) (There is a left bundle branch block which is present on the comparison ECG) Past Medical History Past Medical History: Atrial Fibrillation, Heart Failure, COPD, GERD/Reflux, Hyperlipidemia, Hypertension, Pneumonia, Seizure Disorder, Sleep Apnea/CPAP/BIPAP Additional Past Medical History / Comment(s): Hx multiple kidney stones. Hx Pneumonia, vented-2011. Peptic ulcers. Sleep apnea-no device use. Bilateral Occipital Neuritis, headaches, vertigo. Neuropathy and edema bilateral lower legs, "legs give out at times". had brain surg. for convulsions 2012, still has "mini seizures daily", Hx diverticulitis, colon polyps and hemorrhoids. +Covid 11/08/21, mild symptoms, antibody treatment. CTS enrique History of Any Multi-Drug Resistant Organisms: None Reported Past Surgical History: Cholecystectomy, Heart Catheterization, Hernia Repair Additional Past Surgical History / Comment(s): Brain surgery in 2013 for seizures and headaches, right ovary/tube removed, D&C, Picc Line insertion and removal, kidney stone surgically removed, cystoscopy with ureteral stent, lithotripsy, Laproscopic Cristy Fundoplasty, colonoscopy, recent EGD Past Anesthesia/Blood Transfusion Reactions: No Reported Reaction, Motion Sickness Additional Past Anesthesia/Blood Transfusion Reaction / Comment(s): "Pulmonary edema during kidney surgery, was in induced coma for 3 days". Past Psychological History: Anxiety Smoking Status: Current every day smoker Past Alcohol Use History: None Reported Past Drug Use History: Marijuana - Past Family History Father Family Medical History: AFIB, Diabetes Mellitus, Hypertension Additional Family Medical History / Comment(s): Pacemaker. Mother Family Medical History: Cancer Additional Family Medical History / Comment(s): of pancreatic cancer at the age of 58yrs. Maternal cousin had pancreatic cancer. Maternal uncle had lung cancer. Sister(s) Family Medical History: AICD/Pacemaker Additional Family Medical History / Comment(s): the patient has one sister with AICD. Second sister has no major medical problems. Patient's 1 brother that is healthy. Patient has one son and one daughter with no major medical problems. General Exam General appearance: alert, in no apparent distress Head exam: Present: atraumatic, normocephalic Eye exam: Present: normal appearance. Absent: scleral icterus, conjunctival injection Neck exam: Present: normal inspection Respiratory exam: Present: normal lung sounds bilaterally, chest wall tenderness. Absent: respiratory distress, wheezes, rales, rhonchi, stridor, accessory muscle use Cardiovascular Exam: Present: regular rate, normal rhythm, normal heart sounds. Absent: systolic murmur, diastolic murmur, rubs, gallop GI/Abdominal exam: Present: soft, tenderness. Absent: distended, guarding, rebound, rigid, mass Extremities exam: Present: normal inspection, normal capillary refill. Absent: pedal edema, calf tenderness Back exam: Present: normal inspection. Absent: CVA tenderness (R), CVA tenderness (L) Neurological exam: Present: alert Skin exam: Present: warm, dry, intact, normal color. Absent: rash Course Vital Signs 02/17/25 02/17/25 02/17/25 00:46 02:00 03:00 Temperature 98.0 F 97.8 F Pulse Rate 83 71 71 Respiratory 18 19 18 Rate Blood Pressure 199/132 168/89 163/88 O2 Sat by Pulse 98 95 96 Oximetry 02/17/25 02/17/25 02/17/25 04:00 05:00 06:05 Temperature 98.4 F Pulse Rate 70 67 74 Respiratory 13 17 18 Rate Blood Pressure 173/98 153/87 156/89 O2 Sat by Pulse 95 94 L 99 Oximetry Chest Pain [facility] Patient had chest x-ray that I interpreted as negative for acute infiltrate, pneumothorax, congestive heart failure. Was pt. sent in by a medical professional or institution (, [facility]O, TRACTOR MECHANIC HELPER, urgent care, hospital, or retirement...) When possible be specific @ -[No] Did you speak to anyone other than the patient for history (EMS, parent, family, police, friend...)? What history was obtained from this source @ -[No] Did you review nursing and triage notes (agree or disagree)? Why? @ -[I reviewed and agree with nursing and triage notes] Were old charts reviewed (outside hosp., previous admission, EMS record, old EKG, old radiological studies, urgent care reports/EKG's, retirement records)? Report findings @ -Yes, old charts were reviewed] Differential Diagnosis (chest pain, altered mental status, abdominal pain women, abdominal pain men, vaginal bleeding, weakness, fever, dyspnea, syncope, headache, dizziness, GI bleed, back pain, seizure, CVA, palpatations, mental health, musculoskeletal)? @ -[Differential Chest Pain: Stable Angina, Unstable Angina, STEMI, NSTEMI Aortic Dissection, Pneumothorax, Musculoskeletal, Esophageal Spasm GERD, Cholecystitis, Pancreatitis, Zoster, this is not meant to be an all-inclusive list. EKG interpreted by me (3pts min.). @ -[I interpreted as above] X-rays interpreted by me (1pt min.). @ -[I interpreted as above CT interpreted by me (1pt min.). @ -[None done] U/S interpreted by me (1pt. min.). @ -[None done] What testing was considered but not performed or refused? (CT, X-rays, U/S, labs)? Why? @ -[None] What meds were considered but not given or refused? Why? @ -[None] Did you discuss the management of the patient with other professionals (professionals i.e. CASIMIRO Franks, TRACTOR MECHANIC HELPER, lab, RT, psych nurse, medical social worker, supply coordinator, teacher, biosecurity officer, correctional casework specialist)? Give summary @ -[No] Was smoking cessation discussed for >3mins.? @ -[No] Was critical care preformed (if so, how long)? @ -[No] Were there social determinants of health that impacted care today? How? (Homelessness, low income, unemployed, alcoholism, drug addiction, transportation, low edu. Level, literacy, decrease access to med. care, care home, rehab)? @ -[No] Was there de-escalation of care discussed even if they declined (Discuss DNR or withdrawal of care, Hospice)? DNR status @ -[No] What co-morbidities impacted this encounter? (DM, HTN, Smoking, COPD, CAD, Cancer, CVA, ARF, Chemo, Hep., AIDS, mental health diagnosis, sleep apnea, morbid obesity)? @ -[N hypertension Was patient admitted / discharged? Hospital course, mention meds given and route, prescriptions, significant lab abnormalities, going to OR and other pertinent info. @ -[Patient is 49-year-old woman here to have evaluation of chest pain. History and physical exam are not suggestive of cardiac ischemia and the testing also negative. At this point discussed with the patient and she would like to continue as outpatient. Discussed appropriate further care and follow-up as well as return parameters. Undiagnosed new problem with uncertain prognosis? @ -[No] Drug Therapy requiring intensive monitoring for toxicity (Heparin, Nitro, Insulin, Cardizem)? @ -[No] Were any procedures done? @ -[No] Diagnosis/symptom? @ -[Acute chest pain Acute, or Chronic, or Acute on Chronic? @ -[Acute Uncomplicated (without systemic symptoms) or Complicated (systemic symptoms)? @ -[Uncomplicated Side effects of treatment? @ -[No] Exacerbation, Progression, or Severe Exacerbation? @ -[No] Poses a threat to life or bodily function? How? (Chest pain, [place], NH, pneumonia, PE, COPD, DKA, ARF, appy, cholecystitis, CVA, Diverticulitis, Homicidal, Suicidal, threat to staff... and all critical care pts) @ -[No] All treatments are based on ideal body weight as in ED triage Disposition Clinical Impression: Chest pain Disposition: HOME SELF-CARE Condition: Good Instructions (If sedation given, give patient instructions): Chest Pain (ED) Additional Instructions: As we discussed, return here if your symptoms recur or new symptoms develop. As a precaution recommend with your family history that you have a stress test done. Prescriptions: Phenobarb/Hyoscy/Atropine/Scop [] 16.2 mg PO Q6H PRN #16 tablet PRN Reason: Pain Is patient prescribed a controlled substance at d/c from ED?: No Referrals: Luis Eduardo Braswell DO [Primary Care Provider] - 1-2 days Scar Mendoza MD [STAFF PHYSICIAN] - 1-2 days Berny Barclay MD [STAFF PHYSICIAN] - 1-2 days
--- NOTE | 2025-02-17 04:37 | XR ---
EXAM: XR Chest, 2 Views CLINICAL HISTORY: Chest Pain TECHNIQUE: Frontal and lateral views of the chest. COMPARISON: 06/27/2024 FINDINGS: Lungs: Small amount of patchy airspace opacities over right middle and bilateral lower lung zones. Pleural space: Unremarkable. Mediastinum: Unremarkable. Normal mediastinal contour. Bones/joints: No acute findings. IMPRESSION: Small amount of patchy airspace opacities over right middle and bilateral lower lung zones can represent atelectasis and less likely pneumonia.
[2025-02-17 06:06] VITALS: BP 156/89; PULSE 74; RESP 18; TEMP 98.4
== END 2025-02-17 06:06 | disposition home or self-care (01) ==
LOC: EC 00:44
DX: R07.89 Other chest pain (principal); I11.0 Hypertensive heart disease with heart failure; I50.9 Heart failure, unspecified; F17.200 Nicotine dependence, unspecified, uncomplicated; Z88.5 Allergy status to narcotic agent; Z88.8 Allergy status to other drugs, medicaments and biological substances; Z91.018 Allergy to other foods
CPT/HCPCS: 36415; 71046; 80053; 82150; 83690; 83735; 84484; 85025; 85379; 85610; 85730; 93005; 99285